=== PATIENT | male | born 1940 | race American Indian/Alaskan Native ===

== ENCOUNTER 2017-02-10 09:24 | Inpatient (IN) | payer MEDICARE ==
[2017-02-10 09:25] VITALS: BMI 23.0
--- NOTE | 2017-02-10 10:32 | C.PDOC ---
History Of Present Illness 76 y/o male presents to the ED with complains of swelling to abdomen and testicular region for the past 2-3 months, worsening the past several days, becoming painful. Pt denies urinary retention, fever, vomiting, chest pain, SOB or any other complaints. Time Seen by Provider: 02/10/17 10:11 Chief Complaint (Nursing): Male Genitourinary History Per: Patient History/Exam Limitations: no limitations Onset/Duration Of Symptoms: Days Current Symptoms Are (Timing): Worse Severity: Moderate Quality Of Discomfort: "Pain" Associated Symptoms: denies: Fever, Vomiting, Chest Pain, Urinary Symptoms Alleviating Factors: None Recent travel outside of the [place]: No Past Medical History Reviewed: Historical Data, Nursing Documentation, Vital Signs Vital Signs: Last Vital Signs Temp 97.4 F L 02/10/17 15:46 Pulse 62 02/10/17 15:46 Resp 20 02/10/17 15:46 BP 95/60 L 02/10/17 15:46 Pulse Ox 97 02/10/17 15:46 - Medical History PMH: CAD, CHF (Probably non-ischemic cardiomyopathy), Gastritis, Gall Bladder Disease, HTN - [facility] Procedures DRAINAGE OF PERITONEAL CAVITY, PERCUTANEOUS APPROACH, DIAGN (08/24/16) Family History: States: Unknown Family Hx - Social History Hx Tobacco Use: No Hx Alcohol Use: No Hx Substance Use: No - Immunization History Hx Tetanus Toxoid Vaccination: No Hx Influenza Vaccination: Yes Hx Pneumococcal Vaccination: Yes Review Of Systems Except As Marked, All Systems Reviewed And Found Negative. Constitutional: Negative for: Fever, Chills Cardiovascular: Negative for: Chest Pain Respiratory: Negative for: Shortness of Breath Gastrointestinal: Positive for: Other (abdominal distention). Negative for: Vomiting Genitourinary: Positive for: Other (testicular swelling, no urinary retention) Physical Exam - Physical Exam Appears: Non-toxic, No Acute Distress Skin: Warm, Dry, No Rash Head: Atraumatic, Normacephalic Neck: Normal, Normal ROM, Supple Chest: Symmetrical Cardiovascular: Rhythm Regular, No Murmur Respiratory: Normal Breath Sounds, No Accessory Muscle Use, No Rales, No Rhonchi , No Wheezing Gastrointestinal/Abdominal: Tenderness (mild diffuse), Distention, Ascites Male Genital: Testicular Swelling (severe) Extremity: Normal ROM, Other (2-3+ pitting edema bilaterally) Pulses: Left Dorsalis Pedis: Normal, Right Dorsalis Pedis: Normal Neurological/Psych: Oriented x3, Normal Speech ED Course And Treatment - Laboratory Results Result Diagrams: 02/10/17 11:05 02/10/17 11:05 O2 Sat by Pulse Oximetry: 99 (room air) Pulse Ox Interpretation: Normal Progress Note: Plan: labs, CXR, UA, IV fluids Medical Decision Making Medical Decision Making: The patient has distention secondary to ascites and ansarca. The case was discussed with Dr. Ames who agrees to admit the patient. Disposition - Disposition Disposition: HOSPITALIZED Disposition Time: 11:00 Condition: STABLE - Clinical Impression Clinical Impression: Ascites, Anasarca - PA / MACHINE SANDER / Resident Statement MD/DO has reviewed & agrees with the documentation as recorded. - Scribe Statement The provider has reviewed the documentation as recorded by the Scribe Sridhar Mendez All medical record entries made by the Scribe were at my direction and personally dictated by me. I have reviewed the chart and agree that the record accurately reflects my personal performance of the history, physical exam, medical decision making, and the department course for this patient. I have also personally directed, reviewed, and agree with the discharge instructions and disposition.
--- NOTE | 2017-02-10 10:34 | C.PDOC ---
Time Seen by Provider: 02/10/17 10:11 Chief Complaint (Nursing): Male Genitourinary Past Medical History Vital Signs: Last Vital Signs Temp 97.4 F L 02/10/17 09:28 Pulse 58 L 02/10/17 09:28 Resp 20 02/10/17 09:28 BP 127/77 02/10/17 09:28 Pulse Ox 99 02/10/17 09:28 - Medical History PMH: CAD, CHF (Probably non-ischemic cardiomyopathy), Gastritis, Gall Bladder Disease, HTN Denies: Chronic Kidney Disease - [facility] Procedures DRAINAGE OF PERITONEAL CAVITY, PERCUTANEOUS APPROACH, DIAGN (08/24/16) Family History: States: Unknown Family Hx - Social History Hx Tobacco Use: No Hx Alcohol Use: No Hx Substance Use: No - Immunization History Hx Tetanus Toxoid Vaccination: No Hx Influenza Vaccination: Yes Hx Pneumococcal Vaccination: Yes ED Course And Treatment O2 Sat by Pulse Oximetry: 99
[2017-02-10 11:13] LABS: LYMPH # 0.5 K/uL (1.0-4.3); MEAN CORPUSCULAR HEMOGLOBIN 31.9 pg (27.0-31.0); MONO # 0.4 K/uL (0.0-0.8)
[2017-02-10 11:27] LABS: ALB/GLOB RATIO 1.2 (1.0-2.1); BILIRUBIN,TOTAL 1.8 mg/dL (0.2-1.3); TOTAL PROTEIN 6.3 g/dL (6.3-8.3)
[2017-02-10 11:28] LABS: BASO % 0.7 % (0.0-2.0); CALCIUM 8.2 mg/dl (8.6-10.4); EOS % 0.9 % (0.0-4.0); HEMATOCRIT 32.5 % (35.0-51.0); LYMPH % 11.2 % (20.0-40.0); MEAN CELL VOLUME 98.5 fL (80.0-94.0); MEAN CORPUSCULAR HGB CONC 32.4 g/dL (33.0-37.0); MEAN PLATELET VOLUME 11.8 fL (7.2-11.7); MONO % 8.8 % (0.0-10.0); RED CELL DISTRIBUTION WIDTH 15.7 % (11.5-14.5); WHITE BLOOD COUNT 4.5 K/uL (4.8-10.8)
[2017-02-10 11:35] LABS: RBC URINE 5 /hpf (0-3); URINE BILIRUBIN NEGATIVE (NEGATIVE); URINE BLOOD NEGATIVE (NEGATIVE); URINE COLOR Yellow (YELLOW); URINE GLUCOSE (UA) NORMAL (Normal); URINE KETONE NEGATIVE (NEGATIVE); URINE LEUKOCYTE ESTERASE NEG Leu/uL (Negative); URINE PROTEIN 1+ mg/dL (NEGATIVE); WBC URINE < 1 /hpf (0-5)
--- NOTE | 2017-02-10 13:47 | CP.PCM.PN ---
Subjective - Date & Time of Evaluation Date of Evaluation: 02/10/17 Time of Evaluation: 12:00 - Subjective Subjective: PGY2 on medicine Dr. Ames service: Pt seen and examined at bedside this morning. 76M with history of CHF, HTN and prostate CA with bone metastasis complains abdominal and scrotal swelling for the past several months. Pt also complains intermittent abdominal pain and scrotal pain secondary to swelling but not right now. Patient said he was evaluated by Dr. Landis for scrotal swelling and was told nothing could be done, per patient. He sleeps with 2-3 pillows at night. He sees Dr. Santos outpatient for his heart failure and said Entresto improved his heart because he can walk several blocks now, compare to less than a block in the past. Patient denies other symptoms at the moment and wants to eat his lunch. Objective - Vital Signs/Intake and Output Vital Signs (last 24 hours): Temp Pulse Resp BP Pulse Ox 97.6 F 76 17 130/91 H 99 02/10/17 13:24 02/10/17 13:24 02/10/17 13:24 02/10/17 13:24 02/10/17 13:24 - Medications Medications: Current Medications Furosemide (Lasix) 40 mg IVP DAILY [facility] (Sacubitril/Valsartan [Entresto 24 Mg-26 Mg]) 1 tab PO BID [facility] Home [facility] (Simvastatin [Simvastatin]) 20 mg PO DAILY [facility] Hydralazine HCl (Apresoline) 25 mg PO TID [facility] Pantoprazole Sodium (Protonix Ec Tab) 40 mg PO DAILY [facility] Spironolactone (Aldactone) 25 mg PO DAILY [facility] - Constitutional Appears: Non-toxic, No Acute Distress, Chronically Ill - Head Exam Head Exam: NORMOCEPHALIC - Eye Exam Eye Exam: Normal appearance Pupil Exam: NORMAL ACCOMODATION - ENT Exam ENT Exam: Mucous Membranes Moist - Respiratory Exam Respiratory Exam: Clear to Ausculation Bilateral, NORMAL BREATHING PATTERN. absent: Chest Wall Tenderness, Rhonchi, Wheezes - Cardiovascular Exam Cardiovascular Exam: REGULAR RHYTHM, +S1, +S2. absent: Gallop, Rubs - GI/Abdominal Exam GI & Abdominal Exam: Distended, Soft, Normal Bowel Sounds. absent: Hyperactive Bowel Sounds - Exam Exam: Scrotal Swelling. absent: Testicular Tenderness External exam: absent: Erythema - Extremities Exam Extremities Exam: Pedal Edema (trace) - Back Exam Back Exam: absent: CVA tenderness (L), CVA tenderness (R) - Neurological Exam Neurological Exam: Alert, Awake, Oriented x3 - Psychiatric Exam Psychiatric exam: Normal Mood - Skin Skin Exam: Intact Assessment and Plan - Assessment and Plan (Free Text) Assessment: CHF Previous ECHO 08/2016 showed 25-30% EF. Cath showed 75% LAD stenosis per Dr. Santos. Cardio Dr. Santos consulted, help appreciated. Lasix 40mg IV daily. Hydralazine 25mg PO TID. Entresto 24-26mg PO BID. Crestor 20mg PO daily. LFT WNL. F/U repeat ECHO. F/U SO x3. F/U A1c. F/U lipid panel. F/U TSH, T4. F/U BNP. F/U PT/PTT HTN See above. Ascites 8L drained in 08/2016. Albumin 3.4 LFT WNL. F/U PT/PTT F/U IR drainage result. F/U fluid studies. Testicular swelling/hydrocele Likely secondary to liver vs cardiac origin. Pt evaluated by Dr. Landis for hydrocele previously. F/U testicular ultrasound and reconsult if needed. Hx of prostate CA Heme/onc Dr. Cheney consulted, help appreciated. Right ankle wound Wound care. Pophylactic measure Protonix. SCD and chemical anticoagulation contraindicated. Management per Dr. Ames
--- NOTE | 2017-02-10 13:53 | RAD ---
PROCEDURE: CHEST RADIOGRAPH, 1 VIEW HISTORY: abd pain COMPARISON: None available. FINDINGS: LUNGS: Clear. PLEURA: No pneumothorax or pleural fluid seen. CARDIOVASCULAR: Cardiomegaly and/or pericardial effusion. OSSEOUS STRUCTURES: No significant abnormalities. VISUALIZED UPPER ABDOMEN: Normal. OTHER FINDINGS: None. IMPRESSION: Cardiomegaly and/or pericardial effusion.
--- NOTE | 2017-02-10 14:35 | US ---
HISTORY: hydrocele TECHNIQUE: Realtime sonography through the scrotum with color and doppler flow. COMPARISON: None Available. FINDINGS: RIGHT TESTICLE: Measures 3.2 x 2.3 x 3.4 cm. Normal echotexture and flow. RIGHT EPIDIDYMIS: Not visualized. LEFT TESTICLE: Not visualized. LEFT EPIDIDYMIS: Not visualized. HYDROCELE: Bilateral. Large right hydrocele. Larger left hydrocele. VARICOCELE: None. OTHER FINDINGS: Intra-abdominal ascites. IMPRESSION: Bilateral hydroceles left larger than right. Limitations of the current examination: Nonvisualization of the right epididymis, left epididymis and left testicle.
--- NOTE | 2017-02-10 18:08 | CP.PCM.CON ---
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 In 2013, he was diagnosed with prostate cancer. In 2014, after chemo, he was admitted to [facility] with dyspnea, and had HTN, CHF, was intubated in the ICU and had temporary dialysis. He was in atrial flutter, and underwent ablation. Cath revealed 75% stenosis of the LDF and severe LV dysfunction. He was admitted to the hospital 05/27 and 08/26> I saw him for the first time . Pt also had a moderate pericardial effusion. As an outpatient, pt parra done well. 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 He has been on colchicine for his pericardial effusion, and entresto, beta kimmy. His breathing has improved. He now comes in for scrotal selling, which he has had for some time. and has not improved. Echo repeat still shows severe cardiomyopathy, diffuse, but His RV function is normal, and IVC size is normal, these findings are not c/w pulmonary HTN . In fact, he only has very mild leg edema. His pericardial effusion is of unknown etiology, but is smaller rthan 6 months ago. Echo is also not c/w pericadial constriction. He has remained in nsr after the ablation. He has continued to see Dr rodriguez for prostate CA and has done well. Review of Systems - Review of Systems All systems: reviewed and no additional remarkable complaints except (as above) Past Patient History - Infectious Disease Hx of Infectious Diseases: None - Past Medical History & Family History Past Medical History?: Yes - Past Social History Smoking Status: Never Smoked - CARDIAC Hx Congestive Heart Failure: Yes (Probably non-ischemic cardiomyopathy) Hx Hypertension: Yes - PULMONARY Hx Respiratory Disorders: No - NEUROLOGICAL Hx Neurological Disorder: No - HEENT Hx HEENT Problems: No - RENAL Hx Chronic Kidney Disease: No - ENDOCRINE/METABOLIC Hx Endocrine Disorders: No - HEMATOLOGICAL/ONCOLOGICAL Hx Blood Disorders: Yes Hx Cancer: Yes (PROSTATE) Hx Chemotherapy: Yes - INTEGUMENTARY Hx Dermatological Problems: No - MUSCULOSKELETAL/RHEUMATOLOGICAL Hx Musculoskeletal Disorders: Yes Other/Comment: PROBLEM WITH HIS RIGHT LEG HAD VEIN LASER SURGERY YEARS AGO - GASTROINTESTINAL Hx Gall Bladder Disease: Yes Hx Gastritis: Yes - GENITOURINARY/GYNECOLOGICAL Hx Genitourinary Disorders: Yes Hx Prostate Cancer: Yes (HAD CHEMOTHERAPY) - PSYCHIATRIC Hx Substance Use: No - SURGICAL HISTORY Hx Surgeries: Yes Hx Cardiac Catheterization: Yes Hx Herniorrhaphy: Yes (LEFT INGUINAL) - ANESTHESIA Hx Anesthesia: Yes Hx Anesthesia Reactions: No Hx Malignant Hyperthermia: No Meds Allergies/Adverse Reactions: Allergies Allergy/AdvReac Type Severity Reaction Status Date / Time No Known Allergies Allergy Verified 02/10/17 09:28 - Medications Medications: Current Medications Furosemide (Lasix) 40 mg IVP DAILY [facility] Last Admin: 02/10/17 17:25 Dose: 40 mg Hydralazine HCl (Apresoline) 25 mg PO TID [facility] Last Admin: 02/10/17 17:24 Dose: 25 mg Pantoprazole Sodium (Protonix Ec Tab) 40 mg PO DAILY [facility] Rosuvastatin Calcium (Crestor) 5 mg PO HS [facility] Sacubitril/Valsartan (Entresto 24 Mg-26 Mg) 1 tab PO BID [facility] Spironolactone (Aldactone) 25 mg PO DAILY [facility] Physical Exam - Constitutional Appears: Older Than Stated Age - Head Exam Head Exam: ATRAUMATIC - Eye Exam Eye Exam: EOMI - ENT Exam ENT Exam: Mucous Membranes Moist - Neck Exam Neck exam: Positive for: Normal Inspection - Respiratory Exam Respiratory Exam: Clear to Auscultation Bilateral - Cardiovascular Exam Cardiovascular Exam: REGULAR RHYTHM - GI/Abdominal Exam GI & Abdominal Exam: Normal Bowel Sounds - Exam Exam: Scrotal Swelling (severe) - Extremities Exam Extremities exam: Positive for: pedal edema (bandged right leg ulcer, healing) - Back Exam Back exam: NORMAL INSPECTION - Neurological Exam Neurological exam: Alert, CN II-XII Intact, Oriented x3, Reflexes Normal Results - Vital Signs Recent Vital Signs: Last Vital Signs Temp 97.4 F L 02/10/17 15:46 Pulse 62 02/10/17 15:46 Resp 20 02/10/17 15:46 BP 125/61 02/10/17 17:25 Pulse Ox 99 02/10/17 16:33 - Labs Result Diagrams: 02/10/17 11:05 02/10/17 11:05 Labs: Laboratory Results - last 24 hr 02/10/17 13:22 Total Creatine Kinase 256 H CK-MB (Mass) 1.72 Troponin I, Quant 0.0200 NT-Pro-B Natriuret Pep 8220 H - EKG Data EKG Interpreted by: Myself (nsr, pvs) Assessment & Plan - Assessment and Plan (Free Text) Assessment: 1. Severe cardiomyopathy of unknown etiology: currently well compensated. pt has refused ICD several times. Resume aldactone and beta blcker 2. Pericardial effusion is not big enough for pericardiocentesis. Resume colchicine. pt does not list as an outpt med and he ma have run out 3. S/p aflutter ablation: in nsr 4. Echo suggests right sided pressures are normal, as well as not c/w pericardial constriction. 5. CAD: stable. statin, asa
--- NOTE | 2017-02-10 18:59 | CARD ---
APPROVED REPORT EXAM: Two-dimensional and M-mode echocardiogram with Doppler and color Doppler. Other Information Quality : FairRhythm : NSR INDICATION Dyspnea RISK FACTORS Hypertension M-Mode DIMENSIONS RVDd1.84 (2.1-3.2cm)Left Atrium (MM)5.19 (2.5-4.0cm) IVSd0.96 (0.7-1.1cm)Aortic Root2.89 (2.2-3.7cm) LVDd5.94 (4.0-5.6cm)Aortic Cusp Exc.1.91 (1.5-2.0cm) PWd1.00 (0.7-1.1cm)FS (%) 12 % LVDs5.24 (2.0-3.8cm)LVEF (%)25 (>50%) Aortic Valve AI P 1/2 [id number] Mitral Valve MV E Gtxbgjni65.6cm/sMV A Jgajlnab90.0cm/sE/A ratio2.8 TDI E/Lateral E'0.0E/Medial E'0.0 Tricuspid Valve TR Peak [id number]/sTR Peak Gr.[id number] LEFT VENTRICLE The Left Ventricle is moderately dilated. There is normal left ventricular wall thickness. Left ventricle systolic function is severely impaired. The Ejection Fraction is <30%. There is global hypokinesis of the left ventricle. Transmitral Doppler flow pattern is Grade III restrictive diastolic dysfunction. RIGHT VENTRICLE The right ventricle is moderately dilated. Systolic function is moderately reduced. ATRIA The left atrium is moderately dilated. Left atrial index is severely increased. The right atrium is moderately dilated. AORTIC VALVE The aortic valve is normal in structure. There is mild aortic regurgitation. MITRAL VALVE The mitral valve is normal in structure. Mild mitral regurgitation. TRICUSPID VALVE The tricuspid valve is normal in structure. There is mild to moderate tricuspid regurgitation. Right ventricular systolic pressure is estimated at 42 mmHg. There is mild pulmonary hypertension. PULMONIC VALVE The pulmonary valve is normal in structure. There is mild to moderate pulmonic valvular regurgitation. GREAT VESSELS The aortic root is normal in size. The IVC is normal in size and collapses >50% with inspiration. PERICARDIAL EFFUSION There is a small circumferential pericardial effusion. <Conclusion> There is global hypokinesis of the left ventricle. Left ventricle systolic function is severely impaired. The Ejection Fraction is <30%. Severe diastolic dysfunction. Transmitral Doppler flow pattern is Grade III restrictive diastolic dysfunction. The right ventricle is moderately dilated. Systolic function is moderately reduced. There is mild mitral and aortic regurgitation. Right ventricular systolic pressure is estimated at - 42 mmHg compatible with mild pulmonary hypertension. There is a small circumferential pericardial effusion.
[2017-02-10] MEDS: Sacubitril/Valsartan 24-26mg Tab PO SCH (19:08)
[2017-02-11 06:27] LABS: BASO % 0.6 % (0.0-2.0); EOS # 0.1 K/uL (0.0-0.7); HEMATOCRIT 36.3 % (35.0-51.0); LYMPH # 0.7 K/uL (1.0-4.3); LYMPH % 12.3 % (20.0-40.0); MEAN CELL VOLUME 98.3 fL (80.0-94.0); MEAN CORPUSCULAR HEMOGLOBIN 32.4 pg (27.0-31.0); MEAN PLATELET VOLUME 11.7 fL (7.2-11.7); MONO # 0.5 K/uL (0.0-0.8); MONO % 8.9 % (0.0-10.0); NRBC % 0.1 % (0.0-2.0); RED CELL DISTRIBUTION WIDTH 15.9 % (11.5-14.5); WHITE BLOOD COUNT 5.5 K/uL (4.8-10.8)
[2017-02-11 06:35] LABS: INR 1.2
[2017-02-11 06:51] LABS: POTASSIUM 4.1 mmol/L (3.6-5.2)
[2017-02-11 06:53] LABS: ALB/GLOB RATIO 1.1 (1.0-2.1); BILIRUBIN,TOTAL 1.4 mg/dL (0.2-1.3); CALCIUM 8.6 mg/dl (8.6-10.4); TOTAL PROTEIN 6.4 g/dL (6.3-8.3)
[2017-02-11 07:11] LABS: T4 8.18 ug/dL (5.5-11.0)
[2017-02-11 07:25] LABS: THYROID STIMULATING HORMONE 4.52 mIU/L (0.46-4.68)
[2017-02-11] MEDS: Pantoprazole 40 mg EC Tab PO SCH (09:32)
[2017-02-11] MEDS: Sacubitril/Valsartan 24-26mg Tab PO SCH ×2 (11:41→17:43)
--- NOTE | 2017-02-11 22:11 | CP.PCM.CON ---
History of Present Illness - History of Present Illness History of Present Illness: 76 year old male with a history of CAD, cardiomyopathy, prostate cancer dx 2009, treated with radiation, hormonal therapy, and chemotherapy with Dr. Adamson, admitted with abdominal and scrotal swelling secondary to ascites s/p paracentesis. The patient is not clear about the specific details of his cancer diagnosis and treatment. He does remember having extremal beam radiotherapy and hormonal injections in 2009 or 2010 on diagnosis. He later reports he required chemotherapy with Dr. Adamson which was complicated by severe chemo side effects which led to hospitalization in the ICU with vent support. He recovered well and notes his last PSA was 4 and told to f/u for surveillance PSA monitoring. He remains active and continues to work. He notes to increasing swelling in his abdomen and scortum which prompted to come to the hospital. He is s/p paracentesis and reports to feeling better. Past medical history: CAD, cardiomyopathy, prostate cancer Past surgical history: Hernia repair Family history: Denies hematologic and oncologic problems Social history: Denies tobacco, alcohol, and illicit drug use. Allergies: NKA Review of systems: All remaining review of systems including HEENT, cardiovascular, respiratory, gastrointestinal, genitourinary, musculoskeletal, dermatologic, neurologic, and psychiatric are negative unless mentioned in the HPI. Past Patient History - Infectious Disease Hx of Infectious Diseases: None - Past Medical History & Family History Past Medical History?: Yes - Past Social History Smoking Status: Former Smoker - CARDIAC Hx Cardiac Disorders: Yes Hx Congestive Heart Failure: Yes (Probably non-ischemic cardiomyopathy) Hx Hypertension: Yes - PULMONARY Hx Respiratory Disorders: No - NEUROLOGICAL Hx Neurological Disorder: No - HEENT Hx HEENT Problems: No - RENAL Hx Chronic Kidney Disease: No - ENDOCRINE/METABOLIC Hx Endocrine Disorders: No - HEMATOLOGICAL/ONCOLOGICAL Hx Blood Disorders: Yes Hx Cancer: Yes (PROSTATE) Hx Chemotherapy: Yes - INTEGUMENTARY Hx Dermatological Problems: No - MUSCULOSKELETAL/RHEUMATOLOGICAL Hx Musculoskeletal Disorders: Yes Hx Falls: No Other/Comment: PROBLEM WITH HIS RIGHT LEG HAD VEIN LASER SURGERY YEARS AGO - GASTROINTESTINAL Hx Gastrointestinal Disorders: Yes Hx Gall Bladder Disease: Yes Hx Gastritis: Yes - GENITOURINARY/GYNECOLOGICAL Hx Genitourinary Disorders: Yes Hx Prostate Cancer: Yes - PSYCHIATRIC Hx Psychophysiologic Disorder: No Hx Substance Use: No - SURGICAL HISTORY Hx Surgeries: Yes Hx Cardiac Catheterization: Yes Hx Herniorrhaphy: Yes (LEFT INGUINAL) - ANESTHESIA Hx Anesthesia: Yes Hx Anesthesia Reactions: No Hx Malignant Hyperthermia: No Has any member of the family had a problem w/ anesthesia?: No Meds Allergies/Adverse Reactions: Allergies Allergy/AdvReac Type Severity Reaction Status Date / Time No Known Allergies Allergy Verified 02/10/17 09:28 - Medications Medications: Current Medications Colchicine (Colocrys) 0.6 mg PO DAILY [facility] Last Admin: 02/11/17 11:41 Dose: 0.6 mg Furosemide (Lasix) 40 mg IVP DAILY [facility] Hydralazine HCl (Apresoline) 25 mg PO Q8H [facility] Last Admin: 02/11/17 19:11 Dose: Not Given Metoprolol Tartrate (Lopressor) 12.5 mg PO BID [facility] Last Admin: 02/11/17 17:42 Dose: 12.5 mg Pantoprazole Sodium (Protonix Ec Tab) 40 mg PO DAILY [facility] Last Admin: 02/11/17 09:32 Dose: 40 mg Rosuvastatin Calcium (Crestor) 5 mg PO HS [facility] Last Admin: 02/11/17 21:47 Dose: 5 mg Sacubitril/Valsartan (Entresto 24 Mg-26 Mg) 1 tab PO BID [facility] Last Admin: 02/11/17 17:43 Dose: 1 tab Spironolactone (Aldactone) 25 mg PO DAILY [facility] Physical Exam - Head Exam Head Exam: ATRAUMATIC - Eye Exam Eye Exam: Normal appearance - ENT Exam ENT Exam: Mucous Membranes Dry - Respiratory Exam Respiratory Exam: NORMAL BREATHING PATTERN - Cardiovascular Exam Cardiovascular Exam: +S1, +S2 - GI/Abdominal Exam GI & Abdominal Exam: Normal Bowel Sounds - Extremities Exam Extremities exam: Positive for: pedal edema - Neurological Exam Neurological exam: Oriented x3 - Psychiatric Exam Psychiatric exam: Normal Affect, Normal Mood - Skin Skin Exam: Warm Results - Vital Signs Recent Vital Signs: Last Vital Signs Temp 97.4 F L 02/11/17 16:20 Pulse 62 02/11/17 20:43 Resp 20 02/11/17 16:20 BP 92/60 L 02/11/17 19:30 Pulse Ox 97 02/11/17 16:20 - Labs Result Diagrams: 02/11/17 06:18 02/11/17 06:18 Labs: Laboratory Results - last 24 hr 02/10/17 02/11/17 02/11/17 22:39 06:18 06:18 WBC 5.5 RBC 3.69 L Hgb 12.0 Hct 36.3 MCV 98.3 H MCH 32.4 H MCHC 33.0 RDW 15.9 H Plt Count 119 L MPV 11.7 Neut % (Auto) 77.2 H Lymph % (Auto) 12.3 L Dare % (Auto) 8.9 Eos % (Auto) 1.0 Baso % (Auto) 0.6 Neut # 4.2 Lymph # 0.7 L Dare # 0.5 Eos # 0.1 Baso # 0.0 PT 13.4 H INR 1.2 APTT 34 Sodium Potassium Chloride Carbon Dioxide Anion Gap BUN Creatinine Est GFR ( Amer) Est GFR (Non-Af Amer) Random Glucose Calcium Magnesium Total Bilirubin AST ALT Alkaline Phosphatase Total Creatine Kinase 286 H CK-MB (Mass) 2.20 Troponin I, Quant 0.0250 Total Protein Albumin Globulin Albumin/Globulin Ratio Triglycerides Cholesterol LDL Cholesterol Direct HDL Cholesterol Thyroxine (T4) TSH 3rd Generation 02/11/17 06:18 WBC RBC Hgb Hct MCV MCH MCHC RDW Plt Count MPV Neut % (Auto) Lymph % (Auto) Dare % (Auto) Eos % (Auto) Baso % (Auto) Neut # Lymph # Dare # Eos # Baso # PT INR APTT Sodium 135 Potassium 4.1 Chloride 101 Carbon Dioxide 25 Anion Gap 13 BUN 20 Creatinine 1.6 H Est GFR ( Amer) 51 Est GFR (Non-Af Amer) 42 Random Glucose 80 Calcium 8.6 Magnesium 2.0 Total Bilirubin 1.4 H AST 48 ALT 27 Alkaline Phosphatase 222 H D Total Creatine Kinase 241 H CK-MB (Mass) 1.98 Troponin I, Quant 0.0300 Total Protein 6.4 Albumin 3.4 L Globulin 3.0 Albumin/Globulin Ratio 1.1 Triglycerides 63 D Cholesterol 160 LDL Cholesterol Direct 84 HDL Cholesterol 43 Thyroxine (T4) 8.18 TSH 3rd Generation 4.52 Assessment & Plan (1) Prostate cancer Assessment and Plan: patients primary oncologist is Dr. Adamson and he will continue to follow with her he appears to be doing will from a hem/onc standpoint mild cytopenias are improving I will sign off; recommend consulting Dr. Adamson for further heme/onc questions Thank you for this interesting consult. Status: Chronic
[2017-02-12 07:08] LABS: BASO % 0.3 % (0.0-2.0); EOS # 0.1 K/uL (0.0-0.7); HEMATOCRIT 35.8 % (35.0-51.0); LYMPH # 0.7 K/uL (1.0-4.3); LYMPH % 13.4 % (20.0-40.0); MEAN CELL VOLUME 97.2 fL (80.0-94.0); MEAN CORPUSCULAR HEMOGLOBIN 32.2 pg (27.0-31.0); MEAN CORPUSCULAR HGB CONC 33.1 g/dL (33.0-37.0); MEAN PLATELET VOLUME 11.2 fL (7.2-11.7); MONO # 0.5 K/uL (0.0-0.8); MONO % 10.3 % (0.0-10.0); NRBC % 0.1 % (0.0-2.0); WHITE BLOOD COUNT 5.3 K/uL (4.8-10.8)
[2017-02-12] MEDS: Sacubitril/Valsartan 24-26mg Tab PO SCH ×2 (10:36→17:44)
[2017-02-12] MEDS: Pantoprazole 40 mg EC Tab PO SCH (10:36)
[2017-02-13 07:24] LABS: BASO % 0.6 % (0.0-2.0); EOS % 0.9 % (0.0-4.0); LYMPH # 0.7 K/uL (1.0-4.3); LYMPH % 15.7 % (20.0-40.0); MEAN CELL VOLUME 98.7 fL (80.0-94.0); MEAN CORPUSCULAR HGB CONC 32.4 g/dL (33.0-37.0); MEAN PLATELET VOLUME 11.7 fL (7.2-11.7); MONO # 0.5 K/uL (0.0-0.8); MONO % 10.8 % (0.0-10.0); NRBC % 0.1 % (0.0-2.0); RED CELL DISTRIBUTION WIDTH 15.8 % (11.5-14.5); WHITE BLOOD COUNT 4.5 K/uL (4.8-10.8)
[2017-02-13 07:32] LABS: INR 1.2
[2017-02-13 07:42] LABS: POTASSIUM 4.5 mmol/L (3.6-5.2)
[2017-02-13 07:45] LABS: ALB/GLOB RATIO 1.1 (1.0-2.1); BILIRUBIN,TOTAL 1.2 mg/dL (0.2-1.3); CALCIUM 8.3 mg/dl (8.6-10.4); TOTAL PROTEIN 6.4 g/dL (6.3-8.3)
--- NOTE | 2017-02-13 08:40 | CP.PCM.PN ---
Subjective - Date & Time of Evaluation Date of Evaluation: 02/13/17 Time of Evaluation: 13:30 - Subjective Subjective: Rapid Response note: Patient is a 76 year old male with a history of congestive heart failure with a echo that showed an EF of less than 30% with sever diasyolic dysfunction. He was found to be in afib with heart rate in the 140s to 110s. An EKG was preformed and then a rapid response was called. Patient denied any chest pain, or palpiations, shortness of breath, or anxiety. Initally his blood pressur was 120/67 but dropped to 106/57. Dr. Santos was called he instructed to started with 5mg of Cardizem. He was given 5mg of Cardizem IVP and his rate dropped to around 100s. We will continue to monitor him and consider another bolus of cardizem or cardiezm drip if heart rate increases. Objective - Vital Signs/Intake and Output Vital Signs (last 24 hours): Temp Pulse Resp BP Pulse Ox 97.9 F 67 18 110/75 100 02/12/17 23:15 02/13/17 00:00 02/12/17 23:15 02/13/17 06:00 02/12/17 23:15 Intake and Output: 02/13/17 02/13/17 06:59 18:59 Intake Total 150 Output Total 100 Balance 50 - Medications Medications: Current Medications Colchicine (Colocrys) 0.6 mg PO DAILY [facility] Last Admin: 02/12/17 10:36 Dose: 0.6 mg Furosemide (Lasix) 40 mg IVP DAILY [facility] Last Admin: 02/12/17 10:36 Dose: 40 mg Hydralazine HCl (Apresoline) 25 mg PO Q8 [facility] Last Admin: 02/13/17 05:55 Dose: 25 mg Metoprolol Tartrate (Lopressor) 12.5 mg PO BID [facility] Last Admin: 02/12/17 17:44 Dose: 12.5 mg Pantoprazole Sodium (Protonix Ec Tab) 40 mg PO DAILY [facility] Last Admin: 02/12/17 10:36 Dose: 40 mg Rosuvastatin Calcium (Crestor) 5 mg PO HS [facility] Last Admin: 02/12/17 21:32 Dose: 5 mg Sacubitril/Valsartan (Entresto 24 Mg-26 Mg) 1 tab PO BID [facility] Last Admin: 02/12/17 17:44 Dose: 1 tab Spironolactone (Aldactone) 25 mg PO DAILY [facility] Last Admin: 02/12/17 10:37 Dose: 25 mg - Labs Labs: 02/13/17 07:18 02/13/17 07:18 PT 13.2 SECONDS (9.7-12.2) H 02/13/17 07:18 INR 1.2 02/13/17 07:18 APTT 34 SECONDS (21-34) 02/13/17 07:18 - Head Exam Head Exam: ATRAUMATIC, NORMAL INSPECTION - Eye Exam Eye Exam: Normal appearance - Respiratory Exam Respiratory Exam: Clear to Ausculation Bilateral - Cardiovascular Exam Cardiovascular Exam: Tachycardia, Irregular Rhythm, Murmur - GI/Abdominal Exam GI & Abdominal Exam: Soft, Tenderness - Extremities Exam Extremities Exam: Normal Inspection
[2017-02-13] MEDS: Pantoprazole 40 mg EC Tab PO SCH (10:33)
[2017-02-13] MEDS: Sacubitril/Valsartan 24-26mg Tab PO SCH ×2 (10:33→17:59)
--- NOTE | 2017-02-13 11:00 | US ---
Date of Procedure: 02/13/2017 PROCEDURE: Ultrasound-guided paracentesis, CPT 59976 Medications: 1% Lidocaine HISTORY: Ascites, abdominal pain, cirrhosis TECHNIQUE: Following informed consent , the patient was placed supine on the stretcher and the site was marked. A limited abdominal ultrasound was performed that showed a large amount of intra-abdominal fluid. Procedural time out was called and the Pt's abdomen was marked and prepped and draped in the usual sterile fashion. Ultrasound-guided large volume paracentesis performed. A total of 5.8 liters of straw colored fluid was removed without complication. Fluid specimen was sent for culture, sensitivity, cytology and chemistries. IMPRESSION: Ultrasound-guided large volume paracentesis.
[2017-02-13 11:34] LABS: BODY FLUID TYPE PERITONEAL
[2017-02-13 12:13] LABS: BF GROSS APPEARANCE SL CLOUDY (CLEAR)
--- NOTE | 2017-02-13 13:17 | CARD ---
APPROVED REPORT EKG Measurement Heart [id number] <Conclusion> Sinus rhythm with frequent premature ventricular complexes and premature atrial complexes Right superior axis deviation Low voltage QRS Septal infarct, age undetermined Abnormal ECG
[2017-02-13] MEDS ORDERED: Albumin Human 25% (12.5 gm/50 ml) IV ONE (13:33)
--- NOTE | 2017-02-13 14:09 | CP.PCM.PN ---
Subjective - Date & Time of Evaluation Date of Evaluation: 02/13/17 Time of Evaluation: 09:00 - Subjective Subjective: Dr. Ames note: Patient seen and and examined in room. History is limited due to patient's condition. He says he is comfortable and sitting up. He does report he his belly has been distended and has been before. He had a paracentesis back in the fall of 2015. He denies having any chest pain, shortness of breath, or palpitations. Objective - Vital Signs/Intake and Output Vital Signs (last 24 hours): Temp Pulse Resp BP Pulse Ox 97.6 F 102 H 18 103/67 100 02/13/17 13:02 02/13/17 13:02 02/13/17 13:02 02/13/17 13:02 02/13/17 13:02 Intake and Output: 02/13/17 02/13/17 06:59 18:59 Intake Total 150 Output Total 100 Balance 50 - Medications Medications: Current Medications Colchicine (Colocrys) 0.6 mg PO DAILY [facility] Last Admin: 02/13/17 10:33 Dose: 0.6 mg Furosemide (Lasix) 40 mg IVP DAILY [facility] Last Admin: 02/13/17 10:34 Dose: 40 mg Hydralazine HCl (Apresoline) 25 mg PO Q8 [facility] Last Admin: 02/13/17 05:55 Dose: 25 mg Diltiazem HCl 125 mg/ Sodium (Chloride) 125 mls @ 5 mls/hr IV .Q24H [facility] PRN Reason: 5 MG/HR Metoprolol Tartrate (Lopressor) 12.5 mg PO BID [facility] Last Admin: 02/13/17 10:33 Dose: 12.5 mg Pantoprazole Sodium (Protonix Ec Tab) 40 mg PO DAILY [facility] Last Admin: 02/13/17 10:33 Dose: 40 mg Rosuvastatin Calcium (Crestor) 5 mg PO HS [facility] Last Admin: 02/12/17 21:32 Dose: 5 mg Sacubitril/Valsartan (Entresto 24 Mg-26 Mg) 1 tab PO BID [facility] Last Admin: 02/13/17 10:33 Dose: 1 tab Spironolactone (Aldactone) 25 mg PO DAILY [facility] Last Admin: 02/13/17 10:33 Dose: 25 mg - Labs Labs: 02/13/17 07:18 06/05/17 07:18 PT 13.2 SECONDS (9.7-12.2) H 02/13/17 07:18 INR 1.2 02/13/17 07:18 APTT 34 SECONDS (21-34) 02/13/17 07:18 - Constitutional Appears: Non-toxic, No Acute Distress - Head Exam Head Exam: ATRAUMATIC, NORMAL INSPECTION, NORMOCEPHALIC - Eye Exam Eye Exam: Normal appearance - Respiratory Exam Respiratory Exam: Clear to Ausculation Bilateral. absent: Rales, Rhonchi, Wheezes - Cardiovascular Exam Cardiovascular Exam: REGULAR RHYTHM, RRR, +S1, +S2. absent: Gallop, Rubs - GI/Abdominal Exam GI & Abdominal Exam: Distended, Firm, Normal Bowel Sounds. absent: Soft, Tenderness - Neurological Exam Neurological Exam: Alert. absent: Oriented x3 - Psychiatric Exam Psychiatric exam: Normal Affect, Normal Mood - Skin Skin Exam: Normal Color Assessment and Plan (1) Ascites Assessment & Plan: Paracentesis preformed, removed 6 liters of fluid, ordered replacement Albumin. Status: Acute (2) CHF (congestive heart failure) Assessment & Plan: Patient had two episodes of being in rapid afib, was given 5mg of Cardizem. Spoke with Dr. Santos, who consulted to stat Amiodrone 200mg bid and to monitor patient overnight. Continue all medication Status: Acute (3) Prophylactic measure Assessment & Plan: Pepcid and Lovenox Status: Acute - Assessment and Plan (Free Text) Assessment: Chronic conditions HTN continue current medications with proper holding parameters.
[2017-02-13 14:12] LABS: NRBC % 0.1 % (0.0-2.0)
[2017-02-13 14:29] LABS: BASO % 0.7 % (0.0-2.0); EOS % 0.8 % (0.0-4.0); HEMATOCRIT 41.6 % (35.0-51.0); LYMPH # 0.9 K/uL (1.0-4.3); LYMPH % 16.9 % (20.0-40.0); MEAN CELL VOLUME 99.1 fL (80.0-94.0); MEAN CORPUSCULAR HEMOGLOBIN 31.5 pg (27.0-31.0); MEAN CORPUSCULAR HGB CONC 31.8 g/dL (33.0-37.0); MEAN PLATELET VOLUME 11.8 fL (7.2-11.7); MONO # 0.5 K/uL (0.0-0.8); MONO % 8.9 % (0.0-10.0); RED CELL DISTRIBUTION WIDTH 15.9 % (11.5-14.5); WHITE BLOOD COUNT 5.6 K/uL (4.8-10.8)
[2017-02-13 14:46] LABS: POTASSIUM 4.2 mmol/L (3.6-5.2)
[2017-02-13 14:48] LABS: ALB/GLOB RATIO 1.2 (1.0-2.1); BILIRUBIN,TOTAL 1.1 mg/dL (0.2-1.3); TOTAL PROTEIN 7.2 g/dL (6.3-8.3)
[2017-02-13 14:49] LABS: CALCIUM 8.7 mg/dl (8.6-10.4)
[2017-02-13 15:26] VITALS: RESP 20
[2017-02-14 08:10] VITALS: O2SAT 99
[2017-02-14 08:29] LABS: BASO % 0.6 % (0.0-2.0); HEMATOCRIT 36.8 % (35.0-51.0); LYMPH # 0.7 K/uL (1.0-4.3); LYMPH % 16.4 % (20.0-40.0); MEAN CELL VOLUME 98.2 fL (80.0-94.0); MEAN CORPUSCULAR HEMOGLOBIN 32.5 pg (27.0-31.0); MEAN CORPUSCULAR HGB CONC 33.1 g/dL (33.0-37.0); MEAN PLATELET VOLUME 11.1 fL (7.2-11.7); MONO # 0.4 K/uL (0.0-0.8); MONO % 9.8 % (0.0-10.0); RED CELL DISTRIBUTION WIDTH 15.8 % (11.5-14.5); WHITE BLOOD COUNT 4.6 K/uL (4.8-10.8)
[2017-02-14 08:54] LABS: POTASSIUM 4.7 mmol/L (3.6-5.2)
[2017-02-14 08:56] LABS: BILIRUBIN,TOTAL 0.9 mg/dL (0.2-1.3)
[2017-02-14 08:57] LABS: ALB/GLOB RATIO 1.2 (1.0-2.1); PHOSPHOROUS 3.6 mg/dL (2.5-4.5); TOTAL PROTEIN 6.7 g/dL (6.3-8.3)
[2017-02-14 08:58] LABS: CALCIUM 8.6 mg/dl (8.6-10.4)
[2017-02-14 09:20] LABS: THYROID STIMULATING HORMONE 2.43 mIU/L (0.46-4.68)
[2017-02-14] MEDS ORDERED: Enoxaparin 30 mg Syringe SC SCH (10:00)
[2017-02-14] MEDS: Pantoprazole 40 mg EC Tab PO SCH (11:14)
[2017-02-14] MEDS: Sacubitril/Valsartan 24-26mg Tab PO SCH (11:17)
--- NOTE | 2017-02-14 11:56 | CARD ---
APPROVED REPORT EKG Measurement Heart [id number] <Conclusion> Undetermined rhythm Right superior axis deviation Low voltage QRS Septal infarct, age undetermined Inferior infarct, age undetermined Abnormal ECG
--- NOTE | 2017-02-14 13:46 | CP.PCM.PN ---
Subjective - Date & Time of Evaluation Date of Evaluation: 02/14/17 Time of Evaluation: 13:41 - Subjective Subjective: The patient had rapid atrial flutter yesterday, nd converted with small dose of cardezem. During the vent, no palpitations or ZHENG. Po amiodarone was ordered. Pt had paracentesis Objective - Vital Signs/Intake and Output Vital Signs (last 24 hours): Temp Pulse Resp BP Pulse Ox 97.4 F L 65 20 99/61 L 99 02/14/17 07:00 02/14/17 07:00 02/14/17 07:00 02/14/17 07:00 02/14/17 07:00 Intake and Output: 02/14/17 02/14/17 06:59 18:59 Intake Total 500 Balance 500 - Medications Medications: Current Medications Amiodarone HCl (Cordarone) 200 mg PO BID [facility] Last Admin: 02/14/17 11:15 Dose: 200 mg Colchicine (Colocrys) 0.6 mg PO DAILY [facility] Last Admin: 02/14/17 11:14 Dose: 0.6 mg Enoxaparin Sodium (Lovenox) 30 mg SC DAILY [facility] Last Admin: 02/14/17 11:17 Dose: Not Given Famotidine (Pepcid) 20 mg PO DAILY [facility] Last Admin: 02/14/17 11:14 Dose: 20 mg Furosemide (Lasix) 40 mg IVP DAILY [facility] Last Admin: 02/14/17 11:17 Dose: Not Given Hydralazine HCl (Apresoline) 25 mg PO Q8 [facility] Last Admin: 02/14/17 06:20 Dose: 25 mg Metoprolol Tartrate (Lopressor) 12.5 mg PO BID [facility] Last Admin: 02/14/17 11:17 Dose: Not Given Pantoprazole Sodium (Protonix Ec Tab) 40 mg PO DAILY [facility] Last Admin: 02/14/17 11:14 Dose: 40 mg Rosuvastatin Calcium (Crestor) 5 mg PO HS [facility] Last Admin: 02/13/17 21:21 Dose: 5 mg Sacubitril/Valsartan (Entresto 24 Mg-26 Mg) 1 tab PO BID [facility] Last Admin: 02/14/17 11:17 Dose: Not Given Spironolactone (Aldactone) 25 mg PO DAILY [facility] Last Admin: 02/14/17 11:17 Dose: Not Given - Labs Labs: 02/14/17 08:20 02/14/17 08:20 PT 13.2 SECONDS (9.7-12.2) H 02/13/17 07:18 INR 1.2 02/13/17 07:18 APTT 34 SECONDS (21-34) 02/13/17 07:18 - Constitutional Appears: Chronically Ill - Head Exam Head Exam: ATRAUMATIC - Eye Exam Eye Exam: EOMI Pupil Exam: NORMAL ACCOMODATION - ENT Exam ENT Exam: Mucous Membranes Moist - Neck Exam Neck Exam: Full ROM - Respiratory Exam Respiratory Exam: Clear to Ausculation Bilateral - Cardiovascular Exam Cardiovascular Exam: REGULAR RHYTHM - GI/Abdominal Exam GI & Abdominal Exam: Normal Bowel Sounds - Extremities Exam Extremities Exam: Full ROM - Back Exam Back Exam: NORMAL INSPECTION - Neurological Exam Neurological Exam: Alert, Awake, Normal Gait, Oriented x3 - Psychiatric Exam Psychiatric exam: Normal Affect, Normal Mood - Skin Skin Exam: Normal Color Assessment and Plan - Assessment and Plan (Free Text) Assessment: 1. Dilated cardiomyopathy: no clinical pulmonary congestion., Excellent exercise capacity. Non sustained vtach noted on tele. pt has refused ICD. 2. Atrial flutter, well tolerated. pt on amiodarone bid, informed that we will have bid for a month, then qd. Pt informed of potential toxicity. LFT and TSH are normal. Pt has refused anticoagulation. 3. Echo not c/w constriction (no IVC plethora, normal Tissue doppler ratio 4. Pt may return to work
[2017-02-14 16:05] VITALS: BP 109/71; PULSE 71; TEMP 97.3
--- NOTE | 2017-02-14 20:05 | CP.PCM.PN ---
Subjective - Date & Time of Evaluation Date of Evaluation: 02/14/17 Time of Evaluation: 09:00 - Subjective Subjective: Patient is seen in room. He has no complaints of chest pain, palpitations, lightheadness, dizziness, shortness of breath, racing heart, or anxiety. Objective - Vital Signs/Intake and Output Vital Signs (last 24 hours): Temp Pulse Resp BP Pulse Ox 97.3 F L 71 20 109/71 99 02/14/17 15:04 02/14/17 15:04 02/14/17 15:04 02/14/17 15:04 02/14/17 07:00 - Labs Labs: 02/14/17 08:20 02/14/17 08:20 PT 13.2 SECONDS (9.7-12.2) H 02/13/17 07:18 INR 1.2 02/13/17 07:18 APTT 34 SECONDS (21-34) 02/13/17 07:18 - Constitutional Appears: Non-toxic, No Acute Distress - Head Exam Head Exam: NORMAL INSPECTION - Eye Exam Eye Exam: Normal appearance - Respiratory Exam Respiratory Exam: Clear to Ausculation Bilateral. absent: Rhonchi, Wheezes - Cardiovascular Exam Cardiovascular Exam: REGULAR RHYTHM, RRR, +S1, +S2. absent: Gallop, Rubs - GI/Abdominal Exam GI & Abdominal Exam: Soft, Normal Bowel Sounds. absent: Distended, Guarding, Tenderness - Extremities Exam Extremities Exam: Normal Inspection. absent: Pedal Edema - Back Exam Back Exam: NORMAL INSPECTION - Neurological Exam Neurological Exam: Alert - Psychiatric Exam Psychiatric exam: Normal Affect, Normal Mood - Skin Skin Exam: Normal Color Assessment and Plan (1) Ascites Status: Acute (2) CHF (congestive heart failure) Status: Acute (3) Prophylactic measure Status: Acute (4) Afib Assessment & Plan: Patient discharged home today with a script for Amiodrone 200mg to take bid. He needs to follow up with Dr. Santos after discharge. Status: Acute
--- NOTE | 2017-02-15 08:00 | PCM.HF ---
Heart Failure Core Measure - Heart Failure Ejection Fraction: Less Than 40 % WINTER Inhibitor Prescribed: Yes Beta-Mariana Prescribed: Metoprolol Succinate Angiotensin II Receptor Mariana Prescribed: No Contraindication/Reason for not providing: on WINTER AnticoagulationTherapy for Atrial Fibrillation/Atrialflutter: No Contraindication/Reason for not providing: nohx of a fib Aldosterone Antagonist Prescribed: Yes Hydralazine Nitrate Prescribed: Yes Implantable Cardioverter Defibrillator Therapy: No Contraindication/Reason for not providing: as per cardiology pt has advanced prostate ca only medical tx Cardiac Resynchronization Therapy Prescribed: No Contraindication/Reason for not providing: pt has recent cath - Follow up Will be discharged to: Home Follow Up Date (must be within 7 days from discharge): 02/17/17 Follow Up Time: 09:00
--- NOTE | 2017-02-15 08:05 | PCM.HF ---
Heart Failure Core Measure - Heart Failure Left Ventricular Function to be assessed after discharge: No WINTER Inhibitor Prescribed: No Contraindication/Reason for not providing: hypotensive Beta-Mariana Prescribed: Metoprolol Succinate Angiotensin II Receptor Mariana Prescribed: No Contraindication/Reason for not providing: hypotensive AnticoagulationTherapy for Atrial Fibrillation/Atrialflutter: No Contraindication/Reason for not providing: patient refused Aldosterone Antagonist Prescribed: Yes Hydralazine Nitrate Prescribed: No Contraindication/Reason for not providing: hypotensive Implantable Cardioverter Defibrillator Therapy: No Contraindication/Reason for not providing: patient refused Cardiac Resynchronization Therapy Prescribed: No Contraindication/Reason for not providing: not indicated - Follow up Will be discharged to: Home Follow Up Date (must be within 7 days from discharge): 02/21/17 Follow Up Time: 09:00
--- NOTE | 2017-02-15 08:09 | HP ---
The patient is a [id number]-male with heart failure, liver disease. Chief complaint of weakness, fat igue, swelling of the abdomen and scrotum. The patient came to the ER, advised admission. PHYSICAL EXAMINATION: VITAL SIGNS: Temperature 98, pulse 90. HEENT: Within normal limits. NECK: Supple. CHEST: Symmetrical air entry. ABDOMEN: Mildly distended. EXTREMITIES: 1+ pedal edema. The patient had scrotal edema. The patient has congestive heart failure, liver disease, patient bedr est, supportive care. Franco Erickson MD cc: [id number] TT: 02/11/2017 10:22:19 jn 02/15/2017 07:08:36
--- NOTE | 2017-02-15 08:26 | DS ---
The patient admitted to hospital with the chief complaint of swelling of the abdomen and scrotum and shortness of breath. The patient got IV Lasix, supportive care and paracentesis. Discharged to [facility] as an outpatient. Franco Erickson MD cc: [id number] TT: 02/13/2017 19:08:30 dn
[2017-02-15 17:12] LABS: TOTAL PROTEIN PERITONEAL FLUID 4.3 g/dL
== END 2017-02-14 16:57 | disposition home or self-care (01) | DRG 292 ==
LOC: C.ER 09:24 → C.9E 11:57 → C.5T 13:58 → OBSVTOIN 02-12 11:23
PROVIDERS: ADMIT Internal Medicine Pulmonary Disease; ATTEND Internal Medicine Pulmonary Disease
PROC: 0W9G3ZX Drainage of Peritoneal Cavity, Percutaneous Approach, Diagnostic (ICD-10-PCS; principal; 2017-02-13)
PROC: BW40ZZZ Ultrasonography of Abdomen (ICD-10-PCS; 2017-02-13)
DX: I11.0 Hypertensive heart disease with heart failure (principal); R18.8 Other ascites; I42.0 Dilated cardiomyopathy; I47.2 Ventricular tachycardia; I48.92 Unspecified atrial flutter; I31.3 Pericardial effusion (noninflammatory); C79.51 Secondary malignant neoplasm of bone; I50.30 Unspecified diastolic (congestive) heart failure; C61 Malignant neoplasm of prostate; N43.3 Hydrocele, unspecified; I25.10 Atherosclerotic heart disease of native coronary artery without angina pectoris; I48.91 Unspecified atrial fibrillation; D75.9 Disease of blood and blood-forming organs, unspecified; K74.60 Unspecified cirrhosis of liver; N50.89 Other specified disorders of the male genital organs; Z92.3 Personal history of irradiation; Z92.21 Personal history of antineoplastic chemotherapy

== ENCOUNTER 2017-03-09 08:14 | Emergency (ER) | payer MEDICARE ==
[2017-03-09 08:15] VITALS: BMI 23.0
--- NOTE | 2017-03-09 08:41 | C.PDOC ---
History Of Present Illness 76 y/o male presents to ED with c/o right hip pain for 2 days. Note patient points to buttocks when he says "hip pain". 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 Denies trauma, fall, radiation of pain, abdominal pain, nausea, vomiting, urinary symptoms, or other complaints. Notes he took Tylenol without relief. No history of similar pain in the past. Time Seen by Provider: 03/09/17 08:30 Chief Complaint (Nursing): Back Pain History Per: Patient History/Exam Limitations: no limitations Onset/Duration Of Symptoms: Days Current Symptoms Are (Timing): Still Present Quality Of Discomfort: "Pain" Previous Symptoms: None Associated Symptoms: None Recent travel outside of the [place]: No Past Medical History Reviewed: Historical Data, Nursing Documentation, Vital Signs Vital Signs: Last Vital Signs Temp 97.7 F 03/09/17 10:19 Pulse 69 03/09/17 10:19 Resp 18 03/09/17 10:19 BP 128/75 03/09/17 10:19 Pulse Ox 97 03/09/17 10:58 - Medical History PMH: CAD, CHF, Gastritis, Gall Bladder Disease, HTN - [facility] Procedures DRAINAGE OF PERITONEAL CAVITY, PERCUTANEOUS APPROACH, DIAGN (02/12/17) ULTRASONOGRAPHY OF ABDOMEN (02/12/17) Family History: States: Unknown Family Hx - Social History Hx Tobacco Use: No Hx Alcohol Use: No Hx Substance Use: No - Immunization History Hx Tetanus Toxoid Vaccination: No Hx Influenza Vaccination: Yes Hx Pneumococcal Vaccination: Yes Review Of Systems Except As Marked, All Systems Reviewed And Found Negative. Constitutional: Negative for: Fever, Chills Cardiovascular: Negative for: Chest Pain Respiratory: Negative for: Cough, Shortness of Breath Gastrointestinal: Negative for: Nausea, Vomiting, Abdominal Pain Genitourinary: Negative for: Dysuria, Frequency, Incontinence Musculoskeletal: Positive for: Other (Hip pain, right) Skin: Negative for: Rash Neurological: Negative for: Weakness, Numbness Physical Exam - Physical Exam Appears: Non-toxic, No Acute Distress Skin: Normal Color, Warm, Dry, No Rash, No Ecchymosis Head: Atraumatic, Normacephalic Eye(s): bilateral: Normal Inspection Neck: Normal ROM Chest: Symmetrical Cardiovascular: Rhythm Regular, No Murmur Respiratory: Normal Breath Sounds, No Rales, No Rhonchi, No Wheezing Gastrointestinal/Abdominal: Soft, No Tenderness, No Distention, No Guarding, No Rebound Back: Normal Inspection, No CVA Tenderness, No Vertebral Tenderness, Paraspinal Tenderness (right lower lumbarsacral and buttock mildly tender on palpation, no erythema or sore), No Other (no hip tenderness) Extremity: Normal ROM, No Deformity, No Swelling Extremity: Bilateral: Atraumatic, Limited ROM To Joint Neurological/Psych: Oriented x3, Normal Speech, Normal Motor, Normal Sensation Gait: Steady ED Course And Treatment O2 Sat by Pulse Oximetry: 97 (RA) Pulse Ox Interpretation: Normal - Other Rad LS Spine XR X-Ray: Interpreted by Me, Viewed By Me Interpretation: negative for acute fx or dislocation Medical Decision Making Medical Decision Making: Plan: * Motrin * LS Spine XR * Reassess Progress: Xray reviewed by me and read by radiologist, no fractures appreciated. Extensive lumbar spondylosis and degenerative disc disease. . Multiple sclerotic foci as discussed above. On reevaluation, patient reports improvement of pain, and is in no acute distress. Patient advised to follow up with PMD within 1-2 days. Disposition Counseled Patient/Family Regarding: Need For Followup - Disposition Referrals: Myriam Haro MD [Staff Provider] - Disposition: HOME/ ROUTINE Disposition Time: 10:24 Condition: IMPROVED Additional Instructions: Thank you for letting us take care of you today. Your provider was NANO Hawthorne. You were treated for low back and hip pain. The emergency medical care you received today was directed at your acute symptoms. If you were prescribed any medication, please fill it and take as directed. It may take several days for your symptoms to resolve. Return to the Emergency Department if your symptoms worsen, do not improve, or if you have any other problems. Thank you for allowing the [facility] team to be part of your care today. Instructions: Arthralgia (ED) - POA Present On Arrival: None - Clinical Impression Clinical Impression: Right low back pain - PA / REPAIRER HELPER / Resident Statement MD/DO has reviewed & agrees with the documentation as recorded. - Scribe Statement The provider has reviewed the documentation as recorded by the Gastonibfederico Aldridge All medical record entries made by the Gasotnibfederico were at my direction and personally dictated by me. I have reviewed the chart and agree that the record accurately reflects my personal performance of the history, physical exam, medical decision making, and the department course for this patient. I have also personally directed, reviewed, and agree with the discharge instructions and disposition.
[2017-03-09 10:20] VITALS: BP 128/75; PULSE 69; RESP 18; TEMP 97.7
[2017-03-09 10:58] VITALS: O2SAT 97
--- NOTE | 2017-03-09 11:24 | RAD ---
PROCEDURE: Radiographs of the Lumbar Spine. HISTORY: pain low right back and buttock COMPARISON: Prior CT 08/24/2016. This showed multiple sclerotic lesions some of these have been previously referenced as sclerotic metastases FINDINGS: BONES: Multiple sclerotic foci right ischium/ acetabulum superior aspect and projecting over each sacroiliac joint. Diffuse thoracolumbar spondylosis exuberant bridging anteriorly at L4-5 No fractures appreciated DISC SPACES: Diffuse disc space narrowing OTHER FINDINGS: None. IMPRESSION: No fractures appreciated. Extensive lumbar spondylosis and degenerative disc disease. . Multiple sclerotic foci as discussed above.
== END 2017-03-09 10:24 | disposition home or self-care (01) ==
LOC: C.ER 08:14
DX: M54.5 Low back pain (principal)

== ENCOUNTER 2017-06-15 09:34 | Observation (INO) | payer BC, MEDICARE ==
[2017-06-15 09:35] VITALS: BMI 23.7
--- NOTE | 2017-06-15 10:27 | C.PDOC ---
History Of Present Illness 76 yo M with history of CHF, HTN and prostate CA with bone metastasis come in for evaluation of recurrent abdominal swelling/ ascities and Left testicular gradually developed for past week. Pt admits, similar sx in past " was drained few times in past here". Pt sts, was seen by PMD who recommend go to ED for further evaluation evaluation and paracentesis. Otherwise, pt denies fever, chills, CP, SOB, dyspnea, palpitation N/V,UTI sx. At the time of evaluation, pt appears comfortable. Time Seen by Provider: 06/15/17 09:58 Chief Complaint (Nursing): Abdominal Pain History Per: Patient History/Exam Limitations: no limitations Onset/Duration Of Symptoms: Days Current Symptoms Are (Timing): Still Present Location Of Pain/Discomfort: Diffuse Associated Symptoms: denies: Fever, Vomiting, Diarrhea, Urinary Symptoms Recent travel outside of the [place]: No Past Medical History Reviewed: Historical Data, Nursing Documentation, Vital Signs Vital Signs: Last Vital Signs Temp 97.3 F L 06/15/17 15:00 Pulse 70 06/15/17 15:00 Resp 22 06/15/17 15:00 BP 127/85 06/15/17 15:00 Pulse Ox 99 06/15/17 15:00 - Medical History PMH: CAD, CHF, Gastritis, Gall Bladder Disease, HTN Surgical History: Denies: Pacemaker - [facility] Procedures DRAINAGE OF PERITONEAL CAVITY, PERCUTANEOUS APPROACH, DIAGN (02/12/17) ULTRASONOGRAPHY OF ABDOMEN (02/12/17) Family History: States: Unknown Family Hx - Social History Hx Tobacco Use: No Hx Alcohol Use: No Hx Substance Use: No - Immunization History Hx Tetanus Toxoid Vaccination: No Hx Influenza Vaccination: Yes Hx Pneumococcal Vaccination: Yes Review Of Systems Except As Marked, All Systems Reviewed And Found Negative. Constitutional: Negative for: Fever, Chills Cardiovascular: Negative for: Chest Pain Respiratory: Negative for: Cough, Shortness of Breath, Wheezing Gastrointestinal: Positive for: Other (abdominal swelling). Negative for: Vomiting, Diarrhea Skin: Negative for: Rash Neurological: Negative for: Headache, Dizziness Physical Exam - Physical Exam Appears: Well, Non-toxic, Chronically Ill Skin: Normal Color, Warm, Jaundice (slight) Head: Normacephalic Eye(s): bilateral: PERRL Oral Mucosa: Moist, No Drooling Throat: No Erythema, No Drooling Neck: Supple Cardiovascular: Rhythm Regular, No Murmur, No JVD Respiratory: No Decreased Breath Sounds, No Accessory Muscle Use, No Stridor, No Wheezing Gastrointestinal/Abdominal: Ascites (significant) Male Genital: Testicular Swelling (left sided testcular edema, non-tender. Noted same findings on previous admission to ED, pt reports no changes.) Extremity: Normal ROM, No Pedal Edema, No Deformity, No Other Neurological/Psych: Oriented x3, Normal Speech ED Course And Treatment - Laboratory Results Result Diagrams: 06/15/17 10:38 06/15/17 10:38 ECG: Interpreted By Me, Viewed By Me (and ED attending) ECG Interpretation: No Changes From Prior Interpretation Of ECG: SR@63/min, LAD, low QRS voltage, no acute ST-T changes. O2 Sat by Pulse Oximetry: 100 Pulse Ox Interpretation: Normal Progress Note: Blood work review and appears at baseline. Pt remained stable during the ED evaluation. Afebrile, hemodynamicalys table. Non-toxic. case dsicussed with medicineon-call and admission arranged. IR) notified about admission and will have paracentesis inpatient. Disposition - Disposition Disposition: HOSPITALIZED Disposition Time: 12:01 Condition: STABLE - Clinical Impression Clinical Impression: Prostate cancer, Ascites - PA / DORMITORY COUNSELOR / Resident Statement MD/DO has reviewed & agrees with the documentation as recorded. - Scribe Statement The provider has reviewed the documentation as recorded by the Scribe SM All medical record entries made by the Scribe were at my direction and personally dictated by me. I have reviewed the chart and agree that the record accurately reflects my personal performance of the history, physical exam, medical decision making, and the department course for this patient. I have also personally directed, reviewed, and agree with the discharge instructions and disposition.
[2017-06-15 10:41] LABS: BASO % 0.3 % (0.0-2.0); EOS % 0.1 % (0.0-4.0); HEMATOCRIT 29.3 % (35.0-51.0); LYMPH # 0.4 K/uL (1.0-4.3); LYMPH % 6.7 % (20.0-40.0); MEAN CORPUSCULAR HEMOGLOBIN 28.6 pg (27.0-31.0); MEAN CORPUSCULAR HGB CONC 31.7 g/dL (33.0-37.0); MEAN PLATELET VOLUME 9.8 fL (7.2-11.7); MONO # 0.6 K/uL (0.0-0.8); MONO % 9.2 % (0.0-10.0); NRBC % 0.1 % (0.0-2.0); PLATELET COUNT 124 K/uL (130-400); RED CELL DISTRIBUTION WIDTH 18.8 % (11.5-14.5); WHITE BLOOD COUNT 6.4 K/uL (4.8-10.8)
[2017-06-15 10:43] LABS: MEAN CELL VOLUME 90.4 fL (80.0-94.0)
[2017-06-15 10:52] LABS: INR 1.3
[2017-06-15 10:59] LABS: CHLORIDE 105 mmol/L (98-107); POTASSIUM 4.6 mmol/L (3.6-5.2); SODIUM 136 mmol/L (132-148)
[2017-06-15 11:01] LABS: BILIRUBIN,TOTAL 0.9 mg/dL (0.2-1.3); GFR AFRICAN-AMERICAN > 60
[2017-06-15 11:02] LABS: ALKALINE PHOSPHATASE 785 U/L (38-126); ALT/SGPT 28 U/L (21-72); AST/SGOT 38 U/L (17-59); BLOOD UREA NITROGEN 19 mg/dL (9-20); CARBON DIOXIDE 23 mmol/L (22-30); GLUCOSE,RANDOM 76 mg/dL (75-110); TOTAL PROTEIN 6.4 g/dL (6.3-8.3)
[2017-06-15 11:03] LABS: CALCIUM 8.3 mg/dl (8.6-10.4)
[2017-06-15 11:20] LABS: EOSINOPHIL 1 % (0-4); NEUTROPHIL 87 % (50-75); TOTAL CELLS COUNTED 100
--- NOTE | 2017-06-15 15:19 | CP.PCM.HP ---
Past Patient History - Infectious Disease Hx of Infectious Diseases: None - Past Medical History & Family History Past Medical History?: Yes - Past Social History Smoking Status: Former Smoker - CARDIAC Hx Congestive Heart Failure: Yes Hx Hypertension: Yes Hx Pacemaker: No - PULMONARY Hx Respiratory Disorders: No - NEUROLOGICAL Hx Neurological Disorder: No - HEENT Hx HEENT Problems: No - RENAL Hx Chronic Kidney Disease: No - ENDOCRINE/METABOLIC Hx Endocrine Disorders: No - HEMATOLOGICAL/ONCOLOGICAL Hx Blood Disorders: Yes Hx Cancer: Yes (PROSTATE) Hx Chemotherapy: Yes - INTEGUMENTARY Hx Dermatological Problems: No - MUSCULOSKELETAL/RHEUMATOLOGICAL Hx Musculoskeletal Disorders: Yes Hx Falls: No - GASTROINTESTINAL Hx Gall Bladder Disease: Yes Hx Gastritis: Yes - GENITOURINARY/GYNECOLOGICAL Hx Genitourinary Disorders: Yes - PSYCHIATRIC Hx Substance Use: No - SURGICAL HISTORY Hx Surgeries: Yes Other/Comment: hernia repair 03/20/17 - ANESTHESIA Hx Anesthesia: Yes Hx Anesthesia Reactions: No Hx Malignant Hyperthermia: No Meds Allergies/Adverse Reactions: Allergies Allergy/AdvReac Type Severity Reaction Status Date / Time No Known Allergies Allergy Verified 06/15/17 09:39 Results - Vital Signs Recent Vital Signs: Last Vital Signs Temp 97.5 F L 06/15/17 09:41 Pulse 62 06/15/17 12:30 Resp 20 06/15/17 12:30 BP 123/80 06/15/17 12:30 Pulse Ox 99 06/15/17 12:30 - Labs Result Diagrams: 06/15/17 10:38 06/15/17 10:38 Labs: Laboratory Results - last 24 hr 06/15/17 06/15/17 06/15/17 10:38 10:38 10:38 WBC 6.4 RBC 3.24 L Hgb 9.3 L D Hct 29.3 L MCV 90.4 D MCH 28.6 MCHC 31.7 L RDW 18.8 H Plt Count 124 L MPV 9.8 Neut % (Auto) 83.7 H Lymph % (Auto) 6.7 L [place] % (Auto) 9.2 Eos % (Auto) 0.1 Baso % (Auto) 0.3 Neut # 5.4 Lymph # 0.4 L [place] # 0.6 Eos # 0.0 Baso # 0.0 Neutrophils % (Manual) 87 H Band Neutrophils % 1 Lymphocytes % (Manual) 8 L Monocytes % (Manual) 3 Eosinophils % (Manual) 1 Platelet Estimate Slightly decreased L Polychromasia Slight Hypochromasia (manual) Slight Anisocytosis (manual) Slight Tear Drop Cells Slight Ovalocytes Slight PT 14.7 H INR 1.3 APTT 32 Sodium 136 Potassium 4.6 Chloride 105 Carbon Dioxide 23 Anion Gap 12 BUN 19 Creatinine 1.3 Est GFR ( Amer) > 60 Est GFR (Non-Af Amer) 54 Random Glucose 76 Calcium 8.3 L Total Bilirubin 0.9 AST 38 ALT 28 Alkaline Phosphatase 785 H Troponin I 0.0370 NT-Pro-B Natriuret Pep 9170 H Total Protein 6.4 Albumin 3.3 L Globulin 3.2 Albumin/Globulin Ratio 1.0
--- NOTE | 2017-06-15 18:34 | CP.PCM.HP ---
History of Present Illness - History of Present Illness History of Present Illness: PGY-1 H&P for Dr. Jacinto CC: "Fluid in my belly" This is a 76 year old male with PMHx Prostate CA with mets to bone, CAD, Atrial flutter s/p ablation, gastritis, HTN who presents complaining of excess fluid in his abdomen. Patient states that he routinely gets paracentesis for recurrent ascites. Patient states that his cancer is well controlled and sees Dr. Adamson for management. Patient denies abdominal pain presently. Patient denies n/v/c/d and changes in stool or bowel habits. Patient seems to be a poor historian and cannot comment on his medical history further, but he states that the fluid seems to have started accumulating 1 week ago. There is also left scrotal swelling which has been ongoing for an unspecified amount of time. Patient also states that his legs will get intermittently swollen, and he wears compression stockings for them. Per review of the EMR, patient was diagnosed with pancreatic cancer in 2009 and had hormonal therapy and chemotherapy. PMHx: Prostate CA with mets to bone, CAD, Atrial flutter s/p ablation, gastritis , HTN, bilateral hydrocele PSHx: Cardiac Cath (), Inguinal Hernia Repair (03/20/17) Allergies: NKDA Social Hx: Former Smoker, quit in 1974. Denies alcohol, drugs. Fam Hx: Denies Home Meds: Flomax 0.4 daily, Amiodarone 200 mg BID, Colcrys 0.6 mg, Bentyl 20 mg TID, Synthroid 25 mcg for 3 weeks only before gets dose changed (disp on 06/07 ), Pantoprazole 40 mg daily, Famotidine 30 mg daily PMD: Dr. Haro Heme/onc: Dr. Adamson Cardio: Dr. Santos Present on Admission - Present on Admission Any Indicators Present on Admission: No Review of Systems - Constitutional Constitutional: absent: Chills, Fever - EENT Eyes: absent: Change in Vision - Cardiovascular Cardiovascular: absent: Chest Pain - Respiratory Respiratory: absent: Cough, Dyspnea, Wheezing - Gastrointestinal Gastrointestinal: absent: Abdominal Pain, Change in Bowel Habits, Constipation, Diarrhea, Nausea, Vomiting - Genitourinary Genitourinary: absent: Dysuria - Musculoskeletal Musculoskeletal: Other (right leg pain) - Integumentary Integumentary: absent: Rash - Neurological Neurological: absent: Dizziness, Numbness, Tingling, Weakness - Endocrine Endocrine: absent: Palpitations Past Patient History - Infectious Disease Hx of Infectious Diseases: None - Past Medical History & Family History Past Medical History?: Yes - Past Social History Smoking Status: Former Smoker - CARDIAC Hx Congestive Heart Failure: Yes Hx Hypertension: Yes Hx Pacemaker: No - PULMONARY Hx Respiratory Disorders: No - NEUROLOGICAL Hx Neurological Disorder: No - HEENT Hx HEENT Problems: No - RENAL Hx Chronic Kidney Disease: No - ENDOCRINE/METABOLIC Hx Endocrine Disorders: No - HEMATOLOGICAL/ONCOLOGICAL Hx Blood Disorders: Yes Hx Cancer: Yes (PROSTATE) Hx Chemotherapy: Yes - INTEGUMENTARY Hx Dermatological Problems: No - MUSCULOSKELETAL/RHEUMATOLOGICAL Hx Musculoskeletal Disorders: Yes Hx Falls: No - GASTROINTESTINAL Hx Gall Bladder Disease: Yes Hx Gastritis: Yes - GENITOURINARY/GYNECOLOGICAL Hx Genitourinary Disorders: Yes - PSYCHIATRIC Hx Substance Use: No - SURGICAL HISTORY Hx Surgeries: Yes Other/Comment: hernia repair 03/20/17 - ANESTHESIA Hx Anesthesia: Yes Hx Anesthesia Reactions: No Hx Malignant Hyperthermia: No Meds Allergies/Adverse Reactions: Allergies Allergy/AdvReac Type Severity Reaction Status Date / Time No Known Allergies Allergy Verified 06/15/17 09:39 Physical Exam - Constitutional Appears: No Acute Distress - Head Exam Head Exam: ATRAUMATIC, NORMOCEPHALIC - Eye Exam Eye Exam: EOMI, PERRL - ENT Exam ENT Exam: Mucous Membranes Moist - Respiratory Exam Respiratory Exam: Clear to Auscultation Bilateral. absent: Rales, Rhonchi, Wheezes - Cardiovascular Exam Cardiovascular Exam: REGULAR RHYTHM, +S1, +S2 - GI/Abdominal Exam GI & Abdominal Exam: Distended, Normal Bowel Sounds, Soft. absent: Tenderness - Exam Exam: Scrotal Swelling (left) - Extremities Exam Extremities exam: Positive for: pedal edema (bilateral) Additional comments: healing lesion on medial distal right leg that is painful to the touch - Back Exam Back exam: absent: CVA tenderness (L), CVA tenderness (R) - Neurological Exam Neurological exam: Alert, CN II-XII Intact, Oriented x3 - Psychiatric Exam Psychiatric exam: Normal Affect, Normal Mood - Skin Skin Exam: Dry, Warm Results - Vital Signs Recent Vital Signs: Last Vital Signs Temp 97.3 F L 06/15/17 15:00 Pulse 70 06/15/17 15:00 Resp 22 06/15/17 15:00 BP 127/85 06/15/17 15:00 Pulse Ox 100 06/15/17 17:46 - Labs Result Diagrams: 06/15/17 10:38 06/15/17 10:38 Labs: Laboratory Results - last 24 hr 06/15/17 06/15/17 06/15/17 10:38 10:38 10:38 WBC 6.4 RBC 3.24 L Hgb 9.3 L D Hct 29.3 L MCV 90.4 D MCH 28.6 MCHC 31.7 L RDW 18.8 H Plt Count 124 L MPV 9.8 Neut % (Auto) 83.7 H Lymph % (Auto) 6.7 L [place] % (Auto) 9.2 Eos % (Auto) 0.1 Baso % (Auto) 0.3 Neut # 5.4 Lymph # 0.4 L [place] # 0.6 Eos # 0.0 Baso # 0.0 Neutrophils % (Manual) 87 H Band Neutrophils % 1 Lymphocytes % (Manual) 8 L Monocytes % (Manual) 3 Eosinophils % (Manual) 1 Platelet Estimate Slightly decreased L Polychromasia Slight Hypochromasia (manual) Slight Anisocytosis (manual) Slight Tear Drop Cells Slight Ovalocytes Slight PT 14.7 H INR 1.3 APTT 32 Sodium 136 Potassium 4.6 Chloride 105 Carbon Dioxide 23 Anion Gap 12 BUN 19 Creatinine 1.3 Est GFR ( Amer) > 60 Est GFR (Non-Af Amer) 54 Random Glucose 76 Calcium 8.3 L Total Bilirubin 0.9 AST 38 ALT 28 Alkaline Phosphatase 785 H Troponin I 0.0370 NT-Pro-B Natriuret Pep 9170 H Total Protein 6.4 Albumin 3.3 L Globulin 3.2 Albumin/Globulin Ratio 1.0 Assessment & Plan - Assessment and Plan (Free Text) Plan: Ascites Dr. Chaparro consulted for Paracentesis. Paracentesis fluid studies ordered. Lasix 80 mg IV BID. Aldactone 25 mg PO daily History of Coronary Artery Disease Restarted home med Amiodarone 200 mg PO BID History of Prostate Cancer Restarted home Flomax 0.4 mg PO daily Prophylactic Measure Protonix 40 mg PO daily Heart Healthy Diet SCDs Restarted Home Synthroid 25 mcg PO daily Case DW Dr. Ophelia Chaseed PGY-1
[2017-06-15 23:51] VITALS: RESP 20; O2SAT 99
[2017-06-16] MEDS ORDERED: Levothyroxine 25 MCG TAB PO SCH (06:30)
[2017-06-16 07:44] VITALS: TEMP 98.1
[2017-06-16 08:02] LABS: BASO % 0.3 % (0.0-2.0); EOS % 0.3 % (0.0-4.0); HEMATOCRIT 32.7 % (35.0-51.0); LYMPH # 0.5 K/uL (1.0-4.3); MEAN CELL VOLUME 88.7 fL (80.0-94.0); MEAN CORPUSCULAR HEMOGLOBIN 28.6 pg (27.0-31.0); MEAN CORPUSCULAR HGB CONC 32.3 g/dL (33.0-37.0); MEAN PLATELET VOLUME 11.2 fL (7.2-11.7); MONO # 0.7 K/uL (0.0-0.8); MONO % 8.8 % (0.0-10.0); PLATELET COUNT 140 K/uL (130-400); RED CELL DISTRIBUTION WIDTH 18.8 % (11.5-14.5); WHITE BLOOD COUNT 7.5 K/uL (4.8-10.8)
[2017-06-16 08:26] LABS: POTASSIUM 4.6 mmol/L (3.6-5.2)
[2017-06-16 08:29] LABS: BILIRUBIN,TOTAL 0.9 mg/dL (0.2-1.3); TOTAL PROTEIN 6.6 g/dL (6.3-8.3)
[2017-06-16 08:30] LABS: ALB/GLOB RATIO 0.9 (1.0-2.1); CALCIUM 8.4 mg/dl (8.6-10.4)
[2017-06-16 09:48] LABS: NEUTROPHIL 92 % (50-75); NUCLEATED RED BLOOD CELL 1 % (0-0); TOTAL CELLS COUNTED 100
[2017-06-16] MEDS ORDERED: Pantoprazole 40 mg EC Tab PO SCH (10:00)
--- NOTE | 2017-06-16 12:36 | PCM.SURG1 ---
Surgeon's Initial Post Op Note - Surgeon's Notes Surgeon: Bijan Chaparro MD Solutions Engineer: NONE Type of Anesthesia: Local Pre-Operative Diagnosis: Ascites Operative Findings: US showed a large amount of ascites Post-Operative Diagnosis: Ascites Operation Performed: US guided paracentesis. Specimen/Specimens Removed: 5 liters of yellow fluid Estimated Blood Loss: EBL {In ML}: 0 Blood Products Given: N/A Drains Used: No Drains Post-Op Condition: Fair Date of Surgery/Procedure: 06/16/17 Time of Surgery/Procedure: 12:50
[2017-06-16] MEDS: Albumin Human 25% (12.5 gm/50 ml) IV SCH ×3 (13:51→17:41)
[2017-06-16 13:56] LABS: BODY FLUID TYPE PERITONEAL/ASCITES
[2017-06-16 15:07] LABS: BF GROSS APPEARANCE CLEAR (CLEAR)
[2017-06-16 17:54] VITALS: BP 108/60; PULSE 64
--- NOTE | 2017-06-16 18:33 | CP.PCM.DIS ---
Provider - Provider Date of Admission: 06/15/17 12:03 Attending physician: Tre Jacinto Jr, MD Consults: Dr. Chaparro--Interventional Radiology Time Spent in preparation of Discharge (in minutes): 35 Diagnosis - Discharge Diagnosis (1) Ascites Status: Acute (2) History of prostate cancer Status: Chronic (3) History of coronary artery disease Status: Chronic (4) Prophylactic measure Status: Acute Hospital Course - Lab Results Lab Results: Most Recent Lab Values WBC 7.5 K/uL (4.8-10.8) 06/16/17 07:56 RBC 3.69 Mil/uL (4.40-5.90) L 06/16/17 07:56 Hgb 10.6 g/dL (12.0-18.0) L 06/16/17 07:56 Hct 32.7 % (35.0-51.0) L 06/16/17 07:56 MCV 88.7 fL (80.0-94.0) 06/16/17 07:56 MCH 28.6 pg (27.0-31.0) 06/16/17 07:56 MCHC 32.3 g/dL (33.0-37.0) L 06/16/17 07:56 RDW 18.8 % (11.5-14.5) H 06/16/17 07:56 Plt Count 140 K/uL (130-400) 06/16/17 07:56 MPV 11.2 fL (7.2-11.7) 06/16/17 07:56 Neut % (Auto) 83.6 % (50.0-75.0) H 06/16/17 07:56 Lymph % (Auto) 7.0 % (20.0-40.0) L 06/16/17 07:56 [place] % (Auto) 8.8 % (0.0-10.0) 06/16/17 07:56 Eos % (Auto) 0.3 % (0.0-4.0) 06/16/17 07:56 Baso % (Auto) 0.3 % (0.0-2.0) 06/16/17 07:56 Neut # 6.3 K/uL (1.8-7.0) 06/16/17 07:56 Lymph # 0.5 K/uL (1.0-4.3) L 06/16/17 07:56 [place] # 0.7 K/uL (0.0-0.8) 06/16/17 07:56 Eos # 0.0 K/uL (0.0-0.7) 06/16/17 07:56 Baso # 0.0 K/uL (0.0-0.2) 06/16/17 07:56 Neutrophils % (Manual) 92 % (50-75) H 06/16/17 07:56 Band Neutrophils % 1 % (0-2) 06/15/17 10:38 Lymphocytes % (Manual) 5 % (20-40) L 06/16/17 07:56 Monocytes % (Manual) 3 % (0-10) 06/16/17 07:56 Eosinophils % (Manual) 1 % (0-4) 06/15/17 10:38 Nucleated RBC % 1 % (0-0) H 06/16/17 07:56 Platelet Estimate Normal (NORMAL) 06/16/17 07:56 Polychromasia Slight 06/15/17 10:38 Hypochromasia (manual) Slight 06/15/17 10:38 Anisocytosis (manual) Slight 06/16/17 07:56 Tear Drop Cells Slight 06/15/17 10:38 Ovalocytes Slight 06/15/17 10:38 PT 14.7 SECONDS (9.7-12.2) H 06/15/17 10:38 INR 1.3 06/15/17 10:38 APTT 32 SECONDS (21-34) 06/15/17 10:38 Sodium 134 mmol/L (132-148) 06/16/17 07:56 Potassium 4.6 mmol/L (3.6-5.2) 06/16/17 07:56 Chloride 101 mmol/L (98-107) 06/16/17 07:56 Carbon Dioxide 20 mmol/L (22-30) L 06/16/17 07:56 Anion Gap 18 (10-20) 06/16/17 07:56 BUN 22 mg/dL (9-20) H 06/16/17 07:56 Creatinine 1.4 mg/dL (0.8-1.5) 06/16/17 07:56 Est GFR ( Amer) 60 06/16/17 07:56 Est GFR (Non-Af Amer) 49 06/16/17 07:56 Random Glucose 85 mg/dL (75-110) 06/16/17 07:56 Calcium 8.4 mg/dl (8.6-10.4) L 06/16/17 07:56 Total Bilirubin 0.9 mg/dL (0.2-1.3) 06/16/17 07:56 AST 36 U/L (17-59) 06/16/17 07:56 ALT 24 U/L (21-72) 06/16/17 07:56 Alkaline Phosphatase 816 U/L (38-126) H 06/16/17 07:56 Troponin I 0.0370 ng/mL (0.00-0.120) 06/15/17 10:38 NT-Pro-B Natriuret Pep 9170 pg/mL (0-900) H 06/15/17 10:38 Total Protein 6.6 g/dL (6.3-8.3) 06/16/17 07:56 Albumin 3.2 g/dL (3.5-5.0) L 06/16/17 07:56 Globulin 3.4 gm/dL (2.2-3.9) 06/16/17 07:56 Albumin/Globulin Ratio 0.9 (1.0-2.1) L 06/16/17 07:56 Fluid Source Peritoneal/ascites 06/16/17 13:55 Fluid Appearance Clear (CLEAR) 06/16/17 13:55 Fluid WBC 143.0 /mm3 (0.0-300.0) 06/16/17 13:55 Fluid RBC 415.0 /mm3 (0.0-0.0) H 06/16/17 13:55 - Hospital Course Hospital Course: On admission: "This is a 76 year old male with PMHx Prostate CA with mets to bone, CAD, Atrial flutter s/p ablation, gastritis, HTN who presents complaining of excess fluid in his abdomen. Patient states that he routinely gets paracentesis for recurrent ascites. Patient states that his cancer is well controlled and sees Dr. Adamson for management. Patient denies abdominal pain presently. Patient denies n/v/c/d and changes in stool or bowel habits. Patient seems to be a poor historian and cannot comment on his medical history further, but he states that the fluid seems to have started accumulating 1 week ago. There is also left scrotal swelling which has been ongoing for an unspecified amount of time. Patient also states that his legs will get intermittently swollen, and he wears compression stockings for them. Per review of the EMR, patient was diagnosed with pancreatic cancer in 2009 and had hormonal therapy and chemotherapy." Hospital Course: Patient admitted for ascites. Dr. Chaparro interventional radiologist consulted for paracentesis. Patient given 2 doses of Lasix IV 80 mg and 1 dose of Aldactone 25 mg PO to aid in diuresis. On 06/16/17, 5 liters of clear yellow fluid removed via paracentesis. Albumin 12.5 gm x 3 doses were given after paracentesis. Patient discharged on Lasix 40 mg PO BID to reduce recurrence and told to follow up with his primary doctor and aquaculture farm manager. This is a summary of the hospital course. For more information, refer to the medical records. Discharge Exam - Head Exam Head Exam: ATRAUMATIC, NORMOCEPHALIC - Eye Exam Eye Exam: EOMI, PERRL - ENT Exam ENT Exam: Mucous Membranes Moist - Respiratory Exam Respiratory Exam: Clear to PA & Lateral, NORMAL BREATHING PATTERN. absent: Rales, Rhonchi, Wheezes - Cardiovascular Exam Cardiovascular Exam: REGULAR RHYTHM, +S1, +S2 - GI/Abdominal Exam GI & Abdominal Exam: Normal Bowel Sounds, Soft. absent: Tenderness - Extremities Exam Extremities exam: pedal pulses present - Neurological Exam Neurological exam: Alert, CN II-XII Intact, Oriented x3 - Psychiatric Exam Psychiatric exam: Normal Affect, Normal Mood - Skin Skin Exam: Dry, Warm Discharge Plan - Discharge Medications Prescriptions: Furosemide [Lasix] 40 mg PO BID 30 Days #60 tablet - Follow Up Plan Condition: STABLE Disposition: HOME/ ROUTINE Instructions: Furosemide (By mouth), Heart Failure (DC), Prostate Cancer (DC), Ascites (DC) Additional Instructions: Please follow up with your primary doctor Dr. Haro within 1 week of discharge. Take the Lasix which is the water pill. Take 40 mg by mouth twice a day. Please follow up with Dr. Adamson for management of your prostate cancer. Please follow up with Dr. Santos your aquaculture farm manager as well. If there are any new or worsening symptoms, please return to the emergency room. Referrals: Leon Santos MD [Staff Provider] - Sally Adamson MD [Staff Provider] - Myriam Haro MD [Staff Provider] -
--- NOTE | 2017-06-19 10:39 | US ---
Date of Procedure: 06/16/2017 PROCEDURE: Ultrasound-guided paracentesis, CPT 16518 Medications: 7 cc 1% Lidocaine HISTORY: Ascites, abdominal pain TECHNIQUE: Following informed consent , the patient was placed supine on the stretcher and the site was marked. A limited abdominal ultrasound was performed that showed a large amount of intra-abdominal fluid. Procedural time out was called and the Pt's abdomen was marked and prepped and draped in the usual sterile fashion. Ultrasound-guided large volume paracentesis performed. A total of 5 liters of straw colored fluid was removed without complication. IMPRESSION: Ultrasound-guided large volume paracentesis.
== END 2017-06-16 20:18 | disposition home or self-care (01) ==
LOC: C.ER 09:34 → C.9E 12:03 → C.3T 14:42
PROVIDERS: ADMIT Internal Medicine; ATTEND Internal Medicine
DX: R18.8 Other ascites (principal); C61 Malignant neoplasm of prostate; C79.51 Secondary malignant neoplasm of bone; I11.0 Hypertensive heart disease with heart failure; I25.10 Atherosclerotic heart disease of native coronary artery without angina pectoris
CPT/HCPCS: 36415; 49083; 80053; 82042; 83880; 84484; 85025; 85610; 85730; 87070; 87075; 87101; 89051; 96374; 97116; 97162; 99285; G0378; G8978; G8979; J1940; P9047

== ENCOUNTER 2017-09-12 19:27 | Inpatient (IN) | payer MEDICARE ==
[2017-09-12 19:28] VITALS: BMI 23.7
[2017-09-12 20:59] LABS: BASO # 0.1 K/uL (0.0-0.2); BASO % 0.6 % (0.0-2.0); EOS % 0.2 % (0.0-4.0); HEMOGLOBIN 10.3 g/dL (12.0-18.0); LYMPH # 0.5 K/uL (1.0-4.3); LYMPH % 5.1 % (20.0-40.0); MEAN CORPUSCULAR HEMOGLOBIN 28.7 pg (27.0-31.0); MEAN CORPUSCULAR HGB CONC 31.2 g/dL (33.0-37.0); MEAN PLATELET VOLUME 9.7 fL (7.2-11.7); MONO # 0.6 K/uL (0.0-0.8); NEUT # 7.9 K/uL (1.8-7.0); NEUT % 87.1 % (50.0-75.0); PLATELET COUNT 150 K/uL (130-400)
[2017-09-12 21:00] LABS: MEAN CELL VOLUME 92.1 fL (80.0-94.0)
[2017-09-12 21:07] LABS: INR 1.3; PROTHROMBIN TIME 14.4 SECONDS (9.7-12.2)
[2017-09-12 21:19] LABS: ALB/GLOB RATIO 1.2 (1.0-2.1); ALBUMIN 3.6 g/dL (3.5-5.0); CALCIUM 7.9 mg/dl (8.6-10.4)
[2017-09-12 21:31] LABS: ANISOCYTOSIS SLIGHT; BANDS 1 % (0-2); EOSINOPHIL 1 % (0-4); HYPOCHROMIC SLIGHT; LYMPHOCYTE 4 % (20-40); MONOCYTE 6 % (0-10); NEUTROPHIL 88 % (50-75); PLATELET ESTIMATE NORMAL (NORMAL); POIKILOCYTOSIS SLIGHT; TOTAL CELLS COUNTED 100; TROPONIN I 0.048 ng/mL (0.00-0.120)
[2017-09-12 21:32] LABS: OVALOCYTES SLIGHT
[2017-09-12] MEDS ORDERED: Pantoprazole 40 mg EC Tab PO STA (21:44)
[2017-09-12] MEDS ORDERED: Pantoprazole 40 mg EC Tab PO ONE (21:51)
--- NOTE | 2017-09-12 23:36 | C.PDOC ---
Time Seen by Provider: 09/12/17 20:09 Chief Complaint (Nursing): Abdominal Pain History Per: Patient, Family Onset/Duration Of Symptoms: Days Current Symptoms Are (Timing): Worse Severity: Severe Location Of Pain/Discomfort: Diffuse Quality Of Discomfort: Unable To Describe, Other (Distension) Alleviating Factors: None Additional History Per: Prior Records Past Medical History Reviewed: Historical Data, Nursing Documentation, Vital Signs Vital Signs: Last Vital Signs Temp 97.4 F L 09/12/17 19:40 Pulse 84 09/12/17 19:40 Resp 18 09/12/17 19:40 BP 160/63 H 09/12/17 19:40 Pulse Ox 100 09/12/17 23:36 - Medical History PMH: CAD, CHF, Gastritis, Gall Bladder Disease, HTN, Malignancy (Prostate) - [facility] Procedures DRAINAGE OF PERITONEAL CAVITY, PERCUTANEOUS APPROACH, DIAGN (02/12/17) ULTRASONOGRAPHY OF ABDOMEN (02/12/17) Family History: States: Unknown Family Hx - Social History Hx Tobacco Use: No Hx Alcohol Use: No Hx Substance Use: No - Immunization History Hx Tetanus Toxoid Vaccination: No Hx Influenza Vaccination: Yes Hx Pneumococcal Vaccination: Yes Review Of Systems Except As Marked, All Systems Reviewed And Found Negative. Constitutional: Positive for: Malaise. Negative for: Fever Cardiovascular: Negative for: Chest Pain Respiratory: Positive for: Shortness of Breath Gastrointestinal: Positive for: Abdominal Pain (discomfort). Negative for: Vomiting Genitourinary: Negative for: Dysuria Musculoskeletal: Negative for: Neck Pain Skin: Negative for: Rash Neurological: Negative for: Weakness, Numbness Physical Exam - Physical Exam Appears: Chronically Ill Skin: Normal Color, Warm, Dry Head: Atraumatic, Normacephalic Eye(s): bilateral: PERRL, EOMI Neck: Normal ROM, Supple Cardiovascular: Rhythm Regular Respiratory: Normal Breath Sounds, No Accessory Muscle Use Gastrointestinal/Abdominal: No Tenderness, Distention, Ascites Back: No CVA Tenderness Extremity: Normal ROM Neurological/Psych: Oriented x3, Normal Motor, Normal Sensation ED Course And Treatment - Laboratory Results Result Diagrams: 09/12/17 20:56 09/12/17 20:56 O2 Sat by Pulse Oximetry: 100 Pulse Ox Interpretation: Normal - Radiology CXR: Interpreted by Me, Viewed By Me CXR Interpretation: Yes: Cardiomegaly Progress - Interventions Interventions:: Observation, Oxygen - Medications Administered Intravenous: Diuretic - Data Reviewed Data Reviewed: Lab, Diagnostic imaging, Old records - Patient Status Patient status: Partially improved - Continuity of Care Discussed patient case with:: Patient, ED Nurse, On-call PMD-pt unassigned - Patient Plan Patient Plan: Admission Disposition Discussed With DrSegundo: Juanito Rawls Comment: He accepted pt on his service and gave admitting orders to the nurse. Doctor Will See Patient In The: Hospital Counseled Patient/Family Regarding: Studies Performed, Diagnosis - Disposition Disposition: HOSPITALIZED Disposition Time: 23:41 Condition: FAIR - Clinical Impression Clinical Impression: Malignant ascites
[2017-09-13] MEDS ORDERED: Pantoprazole 40 mg EC Tab PO SCH (10:00)
[2017-09-13] MEDS ORDERED: Home Med 1 UNIT (Bicalutamide [Casodex] 50 MG) PO SCH (10:00)
[2017-09-13] MEDS ORDERED: Enoxaparin 40 mg Syringe SC SCH (10:00)
[2017-09-13] MEDS ORDERED: CEFUROXIME AXETIL 500 MG PO SCH (10:00)
--- NOTE | 2017-09-13 10:07 | PCM.SURG1 ---
Surgeon's Initial Post Op Note - Surgeon's Notes Surgeon: Justin Kelly MD Apple Packing Header: None Type of Anesthesia: Local Pre-Operative Diagnosis: Ascites Operative Findings: Large volume ascites Post-Operative Diagnosis: same Operation Performed: US Guided Paracentesis Specimen/Specimens Removed: 11.5L straw colored fluid removed. Estimated Blood Loss: EBL {In ML}: 0 Date of Surgery/Procedure: 09/13/17 Time of Surgery/Procedure: 10:07
[2017-09-13] MEDS: Albumin Human 25% (12.5 gm/50 ml) IV SCH ×4 (11:02→13:11)
--- NOTE | 2017-09-13 11:49 | US ---
PROCEDURE: ULTRASOUND-GUIDED PARACENTESIS CLINICAL HISTORY: 77-year-old male with recurrent symptomatic ascites is referred to Interventional Radiology for ultrasound-guided paracentesis. COMPARISON: Ultrasound-guided paracentesis performed 06/16/2017. PROCEDURE: 1. Ultrasound-guided paracentesis. PRE-PROCEDURE FINDINGS: 1. Large volume ascites. POST-PROCEDURE FINDINGS: 1. No evidence of post-procedural complication. INTERVENTIONAL RADIOLOGIST: Justin Kelly M.D. (the attending was present for the entire procedure) ANESTHESIA: None. MEDICATION: Lidocaine 1% for local subcutaneous analgesia. Albumin 25 percent 50 gram IV. COMPLICATIONS: None. PROCEDURE DESCRIPTION AND FINDINGS: The risks, benefits, alternatives and possible complications of the procedure were fully discussed; all questions were answered and informed consent was obtained. The patient was brought into the interventional suite and a pre-procedure 'time-out' was performed. The patient was placed on the fluoroscopy table in the supine position. Preliminary ultrasound images of the right lower quadrant demonstrate a large amount of ascites. The right lower quadrant was prepped and draped in the usual sterile fashion. Maximum sterile barrier precautions were maintained throughout the entire procedure. Following subcutaneous infiltration of lidocaine 1% for local analgesia, under real-time ultrasound guidance, a 5 Beninese centesis catheter was advanced into the right lower quadrant with real-time visualization of needle entry. The ultrasound images were permanently recorded and submitted to the PACS. The inner stylet was removed and the catheter was attached to gentle vacuum suction. A total of 11.5 liters of straw-colored fluid were aspirated. The drainage catheter was then removed. A sterile adhesive bandage was placed over the puncture site. The patient tolerated the procedure well without immediate post-procedure complications and was transferred back to the floor in stable condition. IMPRESSION: SUCCESSFUL ULTRASOUND-GUIDED THERAPEUTIC PARACENTESIS.
--- NOTE | 2017-09-13 11:51 | RAD ---
PROCEDURE: CHEST RADIOGRAPH, 1 VIEW HISTORY: Sob COMPARISON: [facility] 02/10/2017 FINDINGS: LUNGS: Subsegmental atelectasis at right base. PLEURA: Possible small right pleural effusion. Opacification of right costophrenic angle. No left pleural effusion. No pneumothorax. CARDIOVASCULAR: Cardiomegaly. No pulmonary vascular congestive change. OSSEOUS STRUCTURES: No significant abnormalities. VISUALIZED UPPER ABDOMEN: Normal. OTHER FINDINGS: None. IMPRESSION: Cardiomegaly. Possible small right pleural effusion. Right basilar subsegmental atelectasis. No congestive change.
[2017-09-13 14:11] LABS: INR 1.3; PROTHROMBIN TIME 15.1 SECONDS (9.7-12.2)
[2017-09-13 16:21] VITALS: RESP 20
--- NOTE | 2017-09-13 18:59 | CP.PCM.HP ---
Past Patient History - Infectious Disease Hx of Infectious Diseases: None - Past Medical History & Family History Past Medical History?: Yes - Past Social History Smoking Status: Former Smoker - CARDIAC Hx Cardiac Disorders: Yes Hx Congestive Heart Failure: Yes Hx Hypertension: Yes - PULMONARY Hx Respiratory Disorders: No - NEUROLOGICAL Hx Neurological Disorder: No - HEENT Hx HEENT Problems: No - RENAL Hx Chronic Kidney Disease: No - ENDOCRINE/METABOLIC Hx Endocrine Disorders: No - HEMATOLOGICAL/ONCOLOGICAL Hx Blood Disorders: Yes Hx Cancer: Yes (PROSTATE) Hx Chemotherapy: Yes - INTEGUMENTARY Hx Dermatological Problems: No - MUSCULOSKELETAL/RHEUMATOLOGICAL Hx Falls: No - GASTROINTESTINAL Hx Gastrointestinal Disorders: Yes Hx Gall Bladder Disease: Yes Hx Gastritis: Yes - GENITOURINARY/GYNECOLOGICAL Hx Genitourinary Disorders: No - PSYCHIATRIC Hx Substance Use: No - SURGICAL HISTORY Hx Surgeries: Yes Other/Comment: hernia repair 03/20/17 - ANESTHESIA Hx Anesthesia: Yes Hx Anesthesia Reactions: No Hx Malignant Hyperthermia: No Meds Allergies/Adverse Reactions: Allergies Allergy/AdvReac Type Severity Reaction Status Date / Time No Known Allergies Allergy Verified 06/15/17 09:39 Physical Exam - Constitutional Appears: Well - Head Exam Head Exam: ATRAUMATIC, NORMAL INSPECTION, NORMOCEPHALIC - Eye Exam Eye Exam: EOMI, Normal appearance, PERRL Pupil Exam: NORMAL ACCOMODATION, PERRL - ENT Exam ENT Exam: Mucous Membranes Moist, Normal Exam - Neck Exam Neck exam: Positive for: Normal Inspection - Respiratory Exam Respiratory Exam: Decreased Breath Sounds - Cardiovascular Exam Cardiovascular Exam: REGULAR RHYTHM, +S1, +S2 - GI/Abdominal Exam GI & Abdominal Exam: Diminished Bowel Sounds, Soft - Rectal Exam Rectal Exam: Deferred Results - Vital Signs Recent Vital Signs: Last Vital Signs Temp 97.3 F L 09/13/17 15:00 Pulse 68 09/13/17 15:00 Resp 20 09/13/17 15:00 BP 127/77 09/13/17 15:00 Pulse Ox 100 09/13/17 15:00 - Labs Result Diagrams: 09/12/17 20:56 09/12/17 20:56 Labs: Laboratory Results - last 24 hr 09/12/17 09/12/17 09/12/17 20:56 20:56 20:56 WBC 9.0 RBC 3.60 L Hgb 10.3 L Hct 33.1 L MCV 92.1 D MCH 28.7 MCHC 31.2 L RDW 22.0 H Plt Count 150 MPV 9.7 Neut % (Auto) 87.1 H Lymph % (Auto) 5.1 L [place] % (Auto) 7.0 Eos % (Auto) 0.2 Baso % (Auto) 0.6 Neut # 7.9 H Lymph # 0.5 L [place] # 0.6 Eos # 0.0 Baso # 0.1 Neutrophils % (Manual) 88 H Band Neutrophils % 1 Lymphocytes % (Manual) 4 L Monocytes % (Manual) 6 Eosinophils % (Manual) 1 Platelet Estimate Normal Hypochromasia (manual) Slight Poikilocytosis (manual Slight Anisocytosis (manual) Slight Ovalocytes Slight PT 14.4 H INR 1.3 APTT 32 Sodium 136 Potassium 4.6 Chloride 106 Carbon Dioxide 24 Anion Gap 10 BUN 19 Creatinine 1.5 Est GFR ( Amer) 55 Est GFR (Non-Af Amer) 46 Random Glucose 92 Calcium 7.9 L Total Bilirubin 1.6 H AST 60 H D ALT 18 L D Alkaline Phosphatase 667 H Troponin I 0.0480 NT-Pro-B Natriuret Pep 72901 H Total Protein 6.6 Albumin 3.6 Globulin 3.0 Albumin/Globulin Ratio 1.2 Lipase 88 Alpha Fetoprotein Carcinoembryonic Ag CA 19-9 Antigen 09/13/17 09/13/17 09/13/17 13:52 13:52 13:52 WBC RBC Hgb Hct MCV MCH MCHC RDW Plt Count MPV Neut % (Auto) Lymph % (Auto) [place] % (Auto) Eos % (Auto) Baso % (Auto) Neut # Lymph # [place] # Eos # Baso # Neutrophils % (Manual) Band Neutrophils % Lymphocytes % (Manual) Monocytes % (Manual) Eosinophils % (Manual) Platelet Estimate Hypochromasia (manual) Poikilocytosis (manual Anisocytosis (manual) Ovalocytes PT 15.1 H INR 1.3 APTT 33 Sodium Potassium Chloride Carbon Dioxide Anion Gap BUN Creatinine Est GFR ( Amer) Est GFR (Non-Af Amer) Random Glucose Calcium Total Bilirubin AST ALT Alkaline Phosphatase Troponin I NT-Pro-B Natriuret Pep Total Protein Albumin Globulin Albumin/Globulin Ratio Lipase Alpha Fetoprotein 3.6 Carcinoembryonic Ag 6.0 H CA 19-9 Antigen 9.9
--- NOTE | 2017-09-13 20:44 | CON ---
DATE: 09/13/2017 LOCATION: 361, bed B. HISTORY OF PRESENT ILLNESS: I was called for a GI consultation by the admitting medical staff as well as the GI fellow. Patient is seen and fully examined on 09/13/2017. The entire chart is reviewed including but not limited to most recent lab and radiology study results, current and previous medication list, current and previous medical events as well as allergic to medication list as well as all the available current and the previous medical records, and the patient just had abdominal paracentesis by the IR staff. Case was discussed at length with the staff in the floor as well as all the consultants. This is a 77-year-old male, known case for me from previous admission. He was admitted to the hospital through the emergency room, was having complaint of abdominal pain, severe at times, diffuse with increased abdominal girth, generalized weakness and malaise with recent loss of appetite and mild body weight loss. No reported active bleeding, chest pain, chills, or fever or significant complaint of shortness of breath or palpitation. PAST MEDICAL HISTORY: Including but not limited to; 1. Peptic ulcer disease. 2. Hypertension, congestive heart failure with coronary artery disease. 3. Prostatic CA. 4. Status post abdominal paracentesis in 02/2017. FAMILY HISTORY: Unknown. SOCIAL HISTORY: No recent history of cigarette smoking or alcohol intake. CURRENT MEDICATIONS: Medication lists were reviewed. ALLERGIES TO MEDICATION: NONE. LABORATORY DATA: After being admitted to the hospital, initial blood workup showed hemoglobin of 10.3 with hematocrit of 33.1, low with normal platelet count and normal white blood cells, but increased PT to 14.4 with low calcium 7.9, slightly elevated total bilirubin to 1.6 with increased AST of 60 with low ALT but alkaline phosphate elevated to 667 with normal lipase, amylase as well as normal total protein and albumin. PHYSICAL EXAMINATION: GENERAL: A 77-year-old male. VITAL SIGNS: Afebrile with pulse of 74, respiratory rate 20 to 22, blood pressure 128/80. HEENT: Showed pale, dry oral mucous membrane. Nonicteric sclerae. LUNGS: A few scattered crepitation. Breathing sounds are present bilaterally. LYMPH NODES: No lymphadenitis or lymphadenopathy. HEART: Positive S1 and S2. ABDOMEN: Soft with slight distention, with less abdominal distention post abdominal paracentesis. No mass or organomegaly. No rebound tenderness or guarding. RECTAL: The patient refused. EXTREMITIES: Without significant clubbing, cyanosis, or edema. NEUROLOGIC: No reported new neurological deficits, sensory or motor. VASCULAR: Peripheral pulses are present, but decreased at bases. It has to be mentioned that the patient had about 11.5 liters removed by today's ultrasound-guided abdominal paracentesis. It has to be mentioned also that the patient has evidence of lower extremity muscle wasting syndrome. The most recent CAT scan done on 06/12/2017 showed also evidence of diffuse ascites with extensive bone metastatic disease with pericardial effusion and cardiomegaly as well as large left hydrocele at that time with evidence of cholelithiasis. IMPRESSION: 1. 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 2. Status post abdominal paracentesis by IR staff. 3. Multiple past medical history including but not limited to prostatic cancer with bone metastasis, hypertension, coronary artery disease, congestive heart failure with cholelithiasis and peptic ulcer disease by history. SUGGESTION: 1. Agree with your plan. 2. Complete ascitic fluid analysis. 3. Oncology/Hematology consult. 4. Guaiac which I believe to be secondary to chronic disease. 5. If there is subsequent drop of hemoglobin and hematocrit, then endoscopic evaluation of the GI tract to be kept in mind. Otherwise close observation to follow. Halle Tran MD
[2017-09-14] MEDS ORDERED: Phytonadione 10 mg/ml Inj (Adult) SC ONE (11:30)
--- NOTE | 2017-09-14 11:38 | PN ---
DATE: LOCATION: [facility], [facility] B. SUBJECTIVE: This is a 77-year-old male, seen and examined in rounds, appeared to be somewhat sleepy, responding to verbal stimuli with a complaint of mild generalized weakness, being tired and fatigued. The entire chart is reviewed including but not limited to the most recent lab and radiology study results, current and the previous medication list, current and the previous medical events and today's lab is still pending; however, yesterday lab showed PT of 15.1 with increased CEA level 6.0, but normal alpha-fetoprotein and normal CA19-9. Lipase level was 88 before. The official results of the ascetic fluid analysis is still pending and the patient reported no chest pain, significant shortness of breath, palpitation and no reported active bleeding. PHYSICAL EXAMINATION: GENERAL: A 77-year-old male. VITAL SIGNS: Afebrile with pulse of 70, respiratory rate 20 to 22, blood pressure 116/74. HEENT: Showed pale dry oral mucous membrane. Nonicteric sclerae. LUNGS: Few scattered crepitation. Decreased air entry at bases. HEART: Positive S1 and S2. ABDOMEN: Soft with mild generalized tenderness with small amount of ascites. No mass or organomegaly. No rebound tenderness or guarding. EXTREMITIES: Without significant clubbing, cyanosis or edema. NEUROLOGIC: No reported new neurological deficits, sensory or motor. Peripheral pulses are present, but weak bilaterally. IMPRESSION: 1. Ascites, most likely refractory malignant ascites with possible peritoneal metastatic seeding. 2. Known history of prostatic cancer with possible metastasis to the bone. 3. Past medical history including but not limited to hypertension, coronary artery disease, congestive heart failure, peptic ulcer disease, cholelithiasis. 4. Anemia, most likely secondary to above. 5. Elevated CEA level with possibility of primary colon cancer was raised versus metastatic disease to the lower gastrointestinal tract. SUGGESTION: 1. Agree with your plan. 2. Guaiac of the stool every other day x3. 3. Repeat H and H. 4. Further recommendation to follow. 5. If there is significant drop of hemoglobin and hematocrit, then endoscopic evaluation of the GI tract to be kept in mind, otherwise close observation to follow. Halle Tran MD [facility] # [id number]
[2017-09-14 12:22] LABS: BASO % 0.4 % (0.0-2.0); EOS % 0.2 % (0.0-4.0); HEMOGLOBIN 9.5 g/dL (12.0-18.0); LYMPH # 0.5 K/uL (1.0-4.3); LYMPH % 7.4 % (20.0-40.0); MEAN CELL VOLUME 91.9 fL (80.0-94.0); MEAN CORPUSCULAR HEMOGLOBIN 29.2 pg (27.0-31.0); MEAN CORPUSCULAR HGB CONC 31.8 g/dL (33.0-37.0); MEAN PLATELET VOLUME 10.5 fL (7.2-11.7); MONO # 0.6 K/uL (0.0-0.8); MONO % 8.6 % (0.0-10.0); NEUT # 5.6 K/uL (1.8-7.0); NEUT % 83.4 % (50.0-75.0); NRBC % 0.1 % (0.0-2.0); RBC 3.26 Mil/uL (4.40-5.90); WHITE BLOOD COUNT 6.8 K/uL (4.8-10.8)
[2017-09-14 12:31] LABS: PLATELET COUNT 124 K/uL (130-400)
[2017-09-14 12:50] LABS: ALB/GLOB RATIO 1.2 (1.0-2.1); ALBUMIN 2.8 g/dL (3.5-5.0); CALCIUM 7.3 mg/dl (8.6-10.4)
[2017-09-14 13:02] LABS: ANISOCYTOSIS SLIGHT; HYPOCHROMIC SLIGHT; LYMPHOCYTE 5 % (20-40); MONOCYTE 8 % (0-10); NEUTROPHIL 87 % (50-75); PLATELET ESTIMATE SLIGHTLY DECREASED (NORMAL); POIKILOCYTOSIS SLIGHT; TOTAL CELLS COUNTED 100
[2017-09-14 13:03] LABS: OVALOCYTES SLIGHT; TEARDROP CELLS SLIGHT
[2017-09-14 13:04] LABS: BURR CELLS SLIGHT; GIANT PLATELETS PRESENT; LARGE PLATELETS PRESENT; MICROCYTOSIS SLIGHT
[2017-09-14] MEDS: BICALUTAMIDE 50 MG PO SCH (18:35)
--- NOTE | 2017-09-14 19:14 | CP.PCM.PN ---
Subjective - Date & Time of Evaluation Date of Evaluation: 09/14/17 Time of Evaluation: 09:00 - Subjective Subjective: clinically same Objective - Vital Signs/Intake and Output Vital Signs (last 24 hours): Temp Pulse Resp BP Pulse Ox 98.5 F 67 20 118/70 99 09/14/17 16:15 09/14/17 16:15 09/14/17 16:15 09/14/17 16:15 09/14/17 16:15 Intake and Output: 09/14/17 09/15/17 18:59 06:59 Intake Total 500 Output Total 250 Balance 250 - Medications Medications: Current Medications Amiodarone HCl (Cordarone) 200 mg PO DAILY [facility] Last Admin: 09/14/17 10:12 Dose: 200 mg Dicyclomine HCl (Bentyl) 20 mg PO TID [facility] Last Admin: 09/14/17 18:32 Dose: 20 mg Enoxaparin Sodium (Lovenox) 40 mg SC DAILY [facility] Famotidine (Pepcid) 40 mg PO DAILY [facility] Last Admin: 09/14/17 10:12 Dose: 40 mg Home Med (Bicalutamide [Casodex]) 50 mg PO DAILY [facility] Last Admin: 09/14/17 18:35 Dose: 50 mg Rosuvastatin Calcium (Crestor) 5 mg PO HS [facility] Last Admin: 09/13/17 21:47 Dose: 5 mg Tamsulosin HCl (Flomax) 0.4 mg PO DAILY [facility] Last Admin: 09/14/17 10:12 Dose: 0.4 mg - Labs Labs: 09/14/17 12:08 09/14/17 12:08 PT 15.1 SECONDS (9.7-12.2) H 09/13/17 13:52 INR 1.3 09/13/17 13:52 APTT 33 SECONDS (21-34) 09/13/17 13:52
--- NOTE | 2017-09-15 07:10 | CARD ---
APPROVED REPORT EKG Measurement Heart [id number] <Conclusion> Sinus rhythm with sinus arrhythmia with 1st degree AV block Right superior axis deviation Low voltage QRS Possible Inferior infarct, age undetermined Cannot rule out Anteroseptal infarct, age undetermined Prolonged QT Abnormal ECG
[2017-09-15] MEDS: BICALUTAMIDE 50 MG PO SCH (09:24)
--- NOTE | 2017-09-15 13:31 | PN ---
DATE: LOCATION: [facility] bed B. SUBJECTIVE: This is a 77-year-old male, seen and examined in rounds without any significant clinical changes, but with period of mild abdominal pain. No reported active bleeding with less oral intake. The entire chart is reviewed including but not limited to the most recent lab and radiology study results, current and the previous medication list, current and the previous medical events. Today's labs still pending; however, yesterday's labs showed drop of hemoglobin to 9.5, hematocrit 29.9 with thrombocytopenia of 124 with low calcium 7.4 and CEA level of 6, elevated. PHYSICAL EXAMINATION: GENERAL: A 77-year-old male. VITAL SIGNS: Afebrile with pulse of 64, respiratory rate 20 to 22, blood pressure 128/78. HEENT: Showed mildly pale dry oral mucoid membrane. Nonicteric sclerae. LUNGS: Few scattered crepitation. Decreased air entry at bases. HEART: Positive S1 and S2. ABDOMEN: Soft with slight distention with small amount of ascites. No mass or organomegaly. No rebound tenderness or guarding, but with slight generalized tenderness. EXTREMITIES: Without significant edema, clubbing or cyanosis. NEUROLOGIC: No reported new neurological deficits, sensory or motor. IMPRESSION: 1. Ascites, to rule out refractory ascites, with possible malignant seeding to the peritoneal cavity. 2. 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 3. Known history of hypertension, coronary artery disease, congestive heart failure, cholelithiasis with peptic ulcer disease. 4. Anemia secondary to above. Elevated CEA level with the possibility of colon cancer was raised. SUGGESTION: 1. Agree with your plan. 2. Follow up on the ascitic fluid results, still pending. 3. No need for aggressive GI workup again. Still the patient may need colonoscopy, it is not clear when his last colonoscopy was done and the patient is still unstable clinically for any aggressive GI workup. Halle Tran MD
--- NOTE | 2017-09-15 15:46 | CP.PCM.PN ---
Subjective - Date & Time of Evaluation Date of Evaluation: 09/15/17 Time of Evaluation: 08:20 - Subjective Subjective: clinically same Objective - Vital Signs/Intake and Output Vital Signs (last 24 hours): Temp Pulse Resp BP Pulse Ox 98.0 F 67 20 120/75 98 09/15/17 08:34 09/15/17 08:34 09/15/17 08:34 09/15/17 08:34 09/15/17 08:34 Intake and Output: 09/15/17 09/15/17 06:59 18:59 Intake Total 750 300 Output Total 600 600 Balance 150 -300 - Medications Medications: Current Medications Amiodarone HCl (Cordarone) 200 mg PO DAILY [facility] Last Admin: 09/15/17 09:29 Dose: 200 mg Dicyclomine HCl (Bentyl) 20 mg PO TID [facility] Last Admin: 09/15/17 13:50 Dose: 20 mg Enoxaparin Sodium (Lovenox) 40 mg SC DAILY [facility] Famotidine (Pepcid) 40 mg PO DAILY [facility] Last Admin: 09/15/17 09:29 Dose: 40 mg Home Med (Bicalutamide [Casodex]) 50 mg PO DAILY [facility] Last Admin: 09/15/17 09:24 Dose: 50 mg Rosuvastatin Calcium (Crestor) 5 mg PO HS [facility] Last Admin: 09/14/17 21:56 Dose: 5 mg Tamsulosin HCl (Flomax) 0.4 mg PO DAILY [facility] Last Admin: 09/15/17 09:29 Dose: 0.4 mg - Labs Labs: 09/14/17 12:08 09/14/17 12:08 PT 15.1 SECONDS (9.7-12.2) H 09/13/17 13:52 INR 1.3 09/13/17 13:52 APTT 33 SECONDS (21-34) 09/13/17 13:52 - Constitutional Appears: Well - Head Exam Head Exam: ATRAUMATIC, NORMAL INSPECTION, NORMOCEPHALIC - Eye Exam Eye Exam: EOMI, Normal appearance, PERRL Pupil Exam: NORMAL ACCOMODATION, PERRL - ENT Exam ENT Exam: Mucous Membranes Moist, Normal Exam - Neck Exam Neck Exam: Full ROM, Normal Inspection. absent: Lymphadenopathy - Respiratory Exam Respiratory Exam: Decreased Breath Sounds - Cardiovascular Exam Cardiovascular Exam: REGULAR RHYTHM, +S1, +S2 - GI/Abdominal Exam GI & Abdominal Exam: Soft, Diminished Bowel Sounds - Rectal Exam Rectal Exam: Deferred
[2017-09-16 08:48] LABS: HEMOGLOBIN 10.5 g/dL (12.0-18.0); MEAN CELL VOLUME 91.7 fL (80.0-94.0); MEAN CORPUSCULAR HEMOGLOBIN 29.5 pg (27.0-31.0); MEAN CORPUSCULAR HGB CONC 32.2 g/dL (33.0-37.0); MEAN PLATELET VOLUME 11.3 fL (7.2-11.7); RBC 3.55 Mil/uL (4.40-5.90); RED CELL DISTRIBUTION WIDTH 21.5 % (11.5-14.5); WHITE BLOOD COUNT 6.7 K/uL (4.8-10.8)
[2017-09-16 09:25] LABS: ALB/GLOB RATIO 1.1 (1.0-2.1); ALBUMIN 2.8 g/dL (3.5-5.0); ALT/SGPT 19 U/L (21-72); AMYLASE 94 U/L (30-110); AST/SGOT 32 U/L (17-59); BLOOD UREA NITROGEN 18 mg/dL (9-20); CALCIUM 7.5 mg/dl (8.6-10.4); GFR AFRICAN-AMERICAN > 60; GFR NON-AFRICAN AMERICAN 54; LIPASE 89 U/L (23-300)
[2017-09-16] MEDS: BICALUTAMIDE 50 MG PO SCH (10:19)
--- NOTE | 2017-09-16 12:59 | PN ---
DATE: LOCATION: [facility], bed B. SUBJECTIVE: This is a 77-year-old male seen and examined in rounds today without significant clinical changes, appeared to be awake, alert, oriented, with much less reported abdominal pain. No reported active bleeding or significant complaint of chest pain or shortness of breath. Patient still has intermittent period of mild abdominal pain and distention. The entire chart is reviewed including but not limited to most recent lab and radiology study results, current and previous medication list, current and previous medical events. Case was discussed with the staff. Today's lab showed hemoglobin of 10.5, hematocrit 32.5, with thrombocytopenia of 118. Patient still has mildly elevated PT and low calcium as well as increased alkaline phosphatase, with low albumin and low total protein. His CEA level is 6. Patient will need colonoscopy only when he is more stable clinically, is still awaiting for the official report of the ascitic fluid results. PHYSICAL EXAMINATION GENERAL: A 77-year-old male. VITAL SIGNS: Afebrile with pulse of 70, respiratory rate 18 to 20, with blood pressure 128/74. HEENT: Show pale, dry oral mucous membrane. Nonicteric sclerae. LUNGS: Scattered mild crepitations. Decreased air entry at bases. HEART: Positive S1 and S2. ABDOMEN: Soft with mild generalized tenderness. No mass or organomegaly. No rebound tenderness. EXTREMITIES: Lower extremities with mild edematous changes. No clubbing or cyanosis. RECTAL: The patient refused. NEUROLOGIC: No reported new neurological deficits, sensory or motor. IMPRESSION: 1. Ascites, to rule out possible refractory malignant ascites with possible peritoneal carcinomatous sheathing. 2. Known history of prostatic cancer with metastatic lesion to the bone. 3. Known history of hypertension, congestive heart failure, coronary artery disease and peptic ulcer disease with cholelithiasis. 4. Anemia, most likely secondary to above. 5. Elevated CEA level. The possibility of lower gastrointestinal tract malignant lesion to be ruled in or out. PLAN: 1. Continue current management. 2. Follow up on the ascitic fluid results. 3. Oncology/Hematology consult. 4. Colonoscopy to be scheduled when the patient is more stable clinically. Further recommendation to follow. Halle Tran MD [facility] # [id number]
--- NOTE | 2017-09-16 15:35 | CP.PCM.PN ---
Subjective - Date & Time of Evaluation Date of Evaluation: 09/16/17 Time of Evaluation: 08:20 - Subjective Subjective: clinically same Objective - Vital Signs/Intake and Output Vital Signs (last 24 hours): Temp Pulse Resp BP Pulse Ox 97.8 F 67 20 125/77 98 09/16/17 07:39 09/16/17 07:39 09/16/17 07:39 09/16/17 07:39 09/16/17 07:39 Intake and Output: 09/16/17 09/16/17 06:59 18:59 Intake Total 500 600 Output Total 500 300 Balance 0 300 - Medications Medications: Current Medications Amiodarone HCl (Cordarone) 200 mg PO DAILY [facility] Last Admin: 09/16/17 10:18 Dose: 200 mg Dicyclomine HCl (Bentyl) 20 mg PO TID [facility] Last Admin: 09/16/17 13:46 Dose: 20 mg Enoxaparin Sodium (Lovenox) 40 mg SC DAILY [facility] Famotidine (Pepcid) 40 mg PO DAILY [facility] Last Admin: 09/16/17 10:19 Dose: 40 mg Home Med (Bicalutamide [Casodex]) 50 mg PO DAILY [facility] Last Admin: 09/16/17 10:19 Dose: 50 mg Rosuvastatin Calcium (Crestor) 5 mg PO HS [facility] Last Admin: 09/15/17 21:12 Dose: 5 mg Tamsulosin HCl (Flomax) 0.4 mg PO DAILY [facility] Last Admin: 09/16/17 10:18 Dose: 0.4 mg - Labs Labs: 09/16/17 08:38 09/16/17 08:38 PT 15.1 SECONDS (9.7-12.2) H 09/13/17 13:52 INR 1.3 09/13/17 13:52 APTT 33 SECONDS (21-34) 09/13/17 13:52
[2017-09-17] MEDS: BICALUTAMIDE 50 MG PO SCH (09:50)
--- NOTE | 2017-09-17 20:15 | CP.PCM.PN ---
Subjective - Date & Time of Evaluation Date of Evaluation: 09/17/17 Time of Evaluation: 08:40 - Subjective Subjective: clinically same Objective - Vital Signs/Intake and Output Vital Signs (last 24 hours): Temp Pulse Resp BP Pulse Ox 97.5 F L 63 20 130/85 100 09/17/17 17:00 09/17/17 17:00 09/17/17 17:00 09/17/17 17:00 09/17/17 17:00 Intake and Output: 09/17/17 09/18/17 18:59 06:59 Intake Total 600 Balance 600 - Medications Medications: Current Medications Amiodarone HCl (Cordarone) 200 mg PO DAILY [facility] Last Admin: 09/17/17 09:50 Dose: 200 mg Dicyclomine HCl (Bentyl) 20 mg PO TID [facility] Last Admin: 09/17/17 17:27 Dose: 20 mg Enoxaparin Sodium (Lovenox) 40 mg SC DAILY [facility] Famotidine (Pepcid) 40 mg PO DAILY [facility] Last Admin: 09/17/17 09:50 Dose: 40 mg Home Med (Bicalutamide [Casodex]) 50 mg PO DAILY [facility] Last Admin: 09/17/17 09:50 Dose: 50 mg Rosuvastatin Calcium (Crestor) 5 mg PO HS [facility] Last Admin: 09/16/17 22:00 Dose: 5 mg Tamsulosin HCl (Flomax) 0.4 mg PO DAILY [facility] Last Admin: 09/17/17 09:54 Dose: 0.4 mg - Labs Labs: 09/16/17 08:38 09/16/17 08:38 PT 15.1 SECONDS (9.7-12.2) H 09/13/17 13:52 INR 1.3 09/13/17 13:52 APTT 33 SECONDS (21-34) 09/13/17 13:52
--- NOTE | 2017-09-17 21:13 | PN ---
DATE: LOCATION: Room 361, bed B. SUBJECTIVE: This is a 77-year-old male seen and examined in rounds today without significant clinical changes, appeared to be more awake, alert, and oriented. Denied any chest pain, significant shortness of breath, but mild abdominal discomfort. The entire chart is reviewed including but not limited to most recent lab and radiology study results, current and the previous medication list, current and the previous medical events, and today's lab results still pending, however, as per yesterday's lab, patient still has low hemoglobin of 10.5, hematocrit 32.5 with thrombocytopenia of 118, with low sodium, low calcium, and elevated alkaline phosphatase 465, with low albumin 2.8 and low total protein 5.3. It has to be mentioned that the patient still has some discomfort at the site of the recently done abdominal paracentesis. PHYSICAL EXAMINATION: GENERAL: A 77-year-old male, seen in rounds with the staff. VITAL SIGNS: Afebrile with pulse of 66, respiratory rate 20 to 22, blood pressure 124/80. HEENT: Showed pale, dry oral mucous membrane. Nonicteric sclerae. LUNGS: A few scattered crepitation. Decreased air entry at bases. HEART: Positive S1 and S2. ABDOMEN: Soft with mild distention and mild amount of ascites. No mass or organomegaly. No rebound tenderness or guarding, but generalized mild tenderness. RECTAL: The patient refused. EXTREMITIES: Without significant clubbing or cyanosis, but mild lower extremity edematous changes. IMPRESSION: 1. Ascites, rule out possible refractory malignant ascites with peritoneal seeding, result of the ascitic fluid is still pending. 2. 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 3. Anemia, secondary to above. 4. Elevated CEA level. The possibility of colon cancer was raised. 5. Known history of, but not limited to hypertension, peptic ulcer disease, coronary artery disease, congestive heart failure. 6. Cholelithiasis per radiology study results. SUGGESTIONS: 1. Continue current management. 2. Follow up on ascitic fluid results. 3. The patient may need a repeat abdominal paracentesis for the . 4. Due to the patient's clinical status, colonoscopy to be kept in mind, only when the patient is more stable clinically. Otherwise, close observation to follow and barium enema, patient refused it for now. Halle Tran MD [facility] # [id number]
[2017-09-18] MEDS: BICALUTAMIDE 50 MG PO SCH (11:24)
--- NOTE | 2017-09-18 15:28 | CP.PCM.PN ---
Subjective - Date & Time of Evaluation Date of Evaluation: 09/18/17 Time of Evaluation: 15:37 - Subjective Subjective: PT SEEN WITH DR. Kaleb GONZALEZ DURING ROUNDS; CLEARED FOR D/C HOME TODAY. I ALSO SPOKE WITH DR. VAZQUEZ AND OK PER HIM TO D/C PT HOME TODAY. PT HAS ALL RX AT HOME. NO NEW RX. D/C INFORMATION DISCUSSED WITH PT. HE IS TO F/U WITH DR. Kaleb GONZALEZ IN THE OFFICE THIS MONDAY--APPT TIME PENDING. CM AWARE OF D/C HOME TODAY; TRANSPORTATION HOME IF NEEDED. NO FURTHER ORDERS. Objective - Vital Signs/Intake and Output Vital Signs (last 24 hours): Temp Pulse Resp BP Pulse Ox 98.1 F 62 20 117/72 98 09/18/17 08:28 09/18/17 08:28 09/18/17 08:28 09/18/17 08:28 09/18/17 08:28 Intake and Output: 09/18/17 09/18/17 06:59 18:59 Intake Total 900 Output Total 650 Balance 250 - Medications Medications: Current Medications Amiodarone HCl (Cordarone) 200 mg PO DAILY [facility] Last Admin: 09/18/17 11:12 Dose: 200 mg Dicyclomine HCl (Bentyl) 20 mg PO TID [facility] Last Admin: 09/18/17 13:41 Dose: 20 mg Enoxaparin Sodium (Lovenox) 40 mg SC DAILY [facility] Famotidine (Pepcid) 40 mg PO DAILY [facility] Home Med (Bicalutamide [Casodex]) 50 mg PO DAILY [facility] Last Admin: 09/18/17 11:24 Dose: 50 mg Rosuvastatin Calcium (Crestor) 5 mg PO HS [facility] Last Admin: 09/17/17 21:19 Dose: 5 mg Tamsulosin HCl (Flomax) 0.4 mg PO DAILY [facility] Last Admin: 09/18/17 11:12 Dose: 0.4 mg - Labs Labs: 09/16/17 08:38 09/16/17 08:38 PT 15.1 SECONDS (9.7-12.2) H 09/13/17 13:52 INR 1.3 09/13/17 13:52 APTT 33 SECONDS (21-34) 09/13/17 13:52
--- NOTE | 2017-09-18 15:28 | PCM.HF ---
Heart Failure Core Measure - Heart Failure Ejection Fraction: Less Than 40 % WINTER Inhibitor Prescribed: No Contraindication/Reason for not providing: D/C BY SIGNAL CIRCUIT DESIGNER OUTPATIENT Beta-Mariana Prescribed: None Contraindication/Reason for not providing: D/C BY SIGNAL CIRCUIT DESIGNER OUTPATIENT 2/2 BRADYCARDIA Angiotensin II Receptor Mariana Prescribed: No Contraindication/Reason for not providing: D/C BY SIGNAL CIRCUIT DESIGNER OUTPATIENT; ON AMIO AND CASODEX AnticoagulationTherapy for Atrial Fibrillation/Atrialflutter: No Contraindication/Reason for not providing: NO AFIB Aldosterone Antagonist Prescribed: No Contraindication/Reason for not providing: D/C BY SIGNAL CIRCUIT DESIGNER OUTPATIENT; ON AMIO AND CASODEX Hydralazine Nitrate Prescribed: No Contraindication/Reason for not providing: D/C BY SIGNAL CIRCUIT DESIGNER OUTPATIENT; ON AMIO AND CASODEX Implantable Cardioverter Defibrillator Therapy: No Contraindication/Reason for not providing: PER CARDIO: PT HAS PROSTATE CA, ONLY [facility] Cardiac Resynchronization Therapy Prescribed: No Contraindication/Reason for not providing: PER CARDIO: PT HAS PROSTATE CA, ONLY [facility] - Follow up Will be discharged to: Home Follow Up Date (must be within 7 days from discharge): 09/20/17 Follow Up Time: 14:00
[2017-09-18 16:21] VITALS: BP 122/82; PULSE 63; TEMP 97.3; O2SAT 96
--- NOTE | 2017-09-18 19:51 | PN ---
DATE: LOCATION: [facility], bed B. SUBJECTIVE: This is a 77-year-old male seen and examined in rounds early today without significant clinical changes, appeared to be more awake and alert, with much less abdominal pain, tolerating oral intake well for which the case was discussed with Dr. Rawls as well as the staff on the floor and the patient to be discharged home today, to be followed up as an outpatient in my office. The entire chart is reviewed including, but not limited to most recent lab and radiology study results, current and previous medication list, current and previous medical events and the latest blood workup showed hemoglobin 10.5, elevated than before with increased hematocrit to 32.5 but thrombocytopenia 118 with low sodium 131, low calcium 7.5, with low albumin 2.8, low total protein 5.6, with CEA level, the latest was 6.0, elevated. The patient has no complaint of chest pain, palpitation or actual shortness of breath. PHYSICAL EXAMINATION GENERAL: A 77-year-old male. VITAL SIGNS: Afebrile with pulse of 66, respiratory rate 20-22, blood pressure 124/80. HEENT: Showed mildly pale dry mucoid membrane. Nonicteric sclerae. LUNGS: Few scattered mild crepitation. Decreased air entry at bases. HEART: Positive S1, S2. ABDOMEN: Soft with mild distention with less amount of ascites reported without any mass or organomegaly. No rebound tenderness or guarding. RECTAL: The patient refused. EXTREMITIES: Without significant clubbing, cyanosis or edema. NEUROLOGIC: No reported new neurological deficits, sensory or motor. IMPRESSION: 1. Ascites, with status post abdominal paracentesis, ascitic fluid results still pending. 2. Anemia, most likely secondary to chronic disease, no clear evidence of active bleeding so far. 3. Elevated CEA level, to rule out occult lower gastrointestinal malignancy. 4. Known history of prostatic cancer with metastatic lesion to the bone. 5. Known history of peptic ulcer disease, hypertension, coronary artery disease with congestive heart failure. 6. Cholelithiasis per radiology study results without clear evidence, clinically of acute cholecystitis. SUGGESTION: 1. Agree with your plan. 2. The patient is to be discharged home and to be followed up as an outpatient for potential colonoscopy when he is more stable clinically. 3. Further recommendation to follow. Case discussed with admitting MD. Halle Tran MD [facility] # [id number]
== END 2017-09-18 18:14 | disposition home or self-care (01) | DRG 375 ==
LOC: C.ER 19:27 → C.9E 23:42 → C.3T 09-13 00:18
PROVIDERS: ADMIT Internal Medicine Nephrology; ATTEND Internal Medicine Nephrology
PROC: 0W9G3ZZ Drainage of Peritoneal Cavity, Percutaneous Approach (ICD-10-PCS; principal; 2017-09-13)
PROC: BW40ZZZ Ultrasonography of Abdomen (ICD-10-PCS; 2017-09-13)
DX: C78.6 Secondary malignant neoplasm of retroperitoneum and peritoneum (principal); R18.0 Malignant ascites; C79.51 Secondary malignant neoplasm of bone; I11.0 Hypertensive heart disease with heart failure; D69.6 Thrombocytopenia, unspecified; I50.9 Heart failure, unspecified; D63.8 Anemia in other chronic diseases classified elsewhere; I25.10 Atherosclerotic heart disease of native coronary artery without angina pectoris; R79.1 Abnormal coagulation profile; Z85.46 Personal history of malignant neoplasm of prostate; Z87.11 Personal history of peptic ulcer disease; Z87.891 Personal history of nicotine dependence

== ENCOUNTER 2017-11-04 15:22 | Observation (INO) | payer BC, MEDICARE ==
[2017-11-04 15:23] VITALS: BMI 23.7
[2017-11-04 16:38] LABS: BASO % 0.3 % (0.0-2.0); EOS % 0.1 % (0.0-4.0); HEMOGLOBIN 9.8 g/dL (12.0-18.0); LYMPH # 0.4 K/uL (1.0-4.3); LYMPH % 6.7 % (20.0-40.0); MEAN CELL VOLUME 93.2 fL (80.0-94.0); MEAN CORPUSCULAR HEMOGLOBIN 29.5 pg (27.0-31.0); MEAN CORPUSCULAR HGB CONC 31.7 g/dL (33.0-37.0); MONO # 0.4 K/uL (0.0-0.8); MONO % 6.7 % (0.0-10.0); NEUT % 86.2 % (50.0-75.0); NRBC % 0.1 % (0.0-2.0); PLATELET COUNT 145 K/uL (130-400); RBC 3.32 Mil/uL (4.40-5.90); RED CELL DISTRIBUTION WIDTH 19.5 % (11.5-14.5); WHITE BLOOD COUNT 5.8 K/uL (4.8-10.8)
[2017-11-04 16:50] LABS: ALB/GLOB RATIO 1.2 (1.0-2.1); ALBUMIN 3.4 g/dL (3.5-5.0); ALT/SGPT 21 U/L (21-72); AST/SGOT 57 U/L (17-59); BLOOD UREA NITROGEN 21 mg/dL (9-20); CALCIUM 8.3 mg/dl (8.6-10.4); GFR AFRICAN-AMERICAN > 60; GFR NON-AFRICAN AMERICAN 59; LIPASE 160 U/L (23-300)
[2017-11-04 16:58] LABS: INR 1.1; PROTHROMBIN TIME 12.7 SECONDS (9.7-12.2)
--- NOTE | 2017-11-04 17:04 | C.PDOC ---
History Of Present Illness 77 y/o male presents to ED with complaints of worsening abdominal distention. Patient has hx of pancreatic CA and he is currently in therapy for it. Denies fever, abdominal pain, or vomiting. Patient is eating normally. Time Seen by Provider: 11/04/17 16:20 Chief Complaint (Nursing): Abdominal Pain History Per: Patient History/Exam Limitations: no limitations Onset/Duration Of Symptoms: Hrs Current Symptoms Are (Timing): Still Present Radiation Of Pain To:: None Quality Of Discomfort: Unable To Describe Associated Symptoms: denies: Fever, Chills, Nausea, Vomiting, Diarrhea, Loss Of Appetite, Chest Pain Exacerbating Factors: None Alleviating Factors: None Recent travel outside of the [place]: No Past Medical History Reviewed: Historical Data, Nursing Documentation, Vital Signs Vital Signs: Last Vital Signs Temp 97.5 F L 11/05/17 00:00 Pulse 59 L 11/05/17 00:00 Resp 20 11/05/17 00:00 BP 131/78 11/05/17 00:00 Pulse Ox 97 11/05/17 00:00 - Medical History PMH: Arthritis (KNEE), CAD, CHF, Gastritis, Gall Bladder Disease, HTN, Malignancy (Prostate) - [employer] Procedures DRAINAGE OF PERITONEAL CAVITY, PERCUTANEOUS APPROACH (09/12/17) DRAINAGE OF PERITONEAL CAVITY, PERCUTANEOUS APPROACH, DIAGN (02/12/17) ULTRASONOGRAPHY OF ABDOMEN (09/12/17) Family History: States: Unknown Family Hx - Social History Hx Tobacco Use: No Hx Alcohol Use: No Hx Substance Use: No - Immunization History Hx Tetanus Toxoid Vaccination: No Hx Influenza Vaccination: Yes Hx Pneumococcal Vaccination: Yes Review Of Systems Constitutional: Negative for: Fever, Chills Cardiovascular: Negative for: Chest Pain Respiratory: Negative for: Shortness of Breath Gastrointestinal: Positive for: Other (Abdominal distention). Negative for: Nausea, Vomiting, Abdominal Pain, Diarrhea Neurological: Negative for: Weakness, Numbness Physical Exam - Physical Exam Appears: Well, Non-toxic Skin: Normal Color, Warm, Dry Head: Atraumatic, Normacephalic Eye(s): bilateral: Normal Inspection, Other (not icteric) Oral Mucosa: Moist Neck: Supple Chest: Symmetrical, No Tenderness Cardiovascular: Rhythm Regular Respiratory: Normal Breath Sounds, No Decreased Breath Sounds, No Rales, No Rhonchi, No Wheezing Gastrointestinal/Abdominal: Soft, No Tenderness, Distention, Hernia (Umbilical) , Other (Abdomen has fluid wave) Extremity: No Tenderness, No Pedal Edema, No Deformity, No Swelling Extremity: Bilateral: Normal Color And Temperature, Normal ROM Neurological/Psych: Oriented x3, Normal Speech, Normal Cognition ED Course And Treatment - Laboratory Results Result Diagrams: 11/04/17 16:36 11/04/17 16:36 O2 Sat by Pulse Oximetry: 98 (RA) Pulse Ox Interpretation: Normal Progress Note: Spoke to Dr. Thrasher which admits for and patient will be admitted to the medical floor. Medical Decision Making Medical Decision Making: Ordered BBK, and blood work. Disposition - Disposition Disposition: HOSPITALIZED Disposition Time: 17:00 Condition: GOOD - Clinical Impression Clinical Impression: Abdominal distension, Ascites - Scribe Statement The provider has reviewed the documentation as recorded by the Salomon Marinelli All medical record entries made by the Gastonibfederico were at my direction and personally dictated by me. I have reviewed the chart and agree that the record accurately reflects my personal performance of the history, physical exam, medical decision making, and the department course for this patient. I have also personally directed, reviewed, and agree with the discharge instructions and disposition.
[2017-11-04 17:29] LABS: LYMPHOCYTE 5 % (20-40); MONOCYTE 2 % (0-10); NEUTROPHIL 93 % (50-75); PLATELET ESTIMATE DECREASED (NORMAL); TOTAL CELLS COUNTED 100
[2017-11-04 17:30] LABS: ANISOCYTOSIS SLIGHT; BURR CELLS SLIGHT; HYPOCHROMIC SLIGHT; LARGE PLATELETS PRESENT; OVALOCYTES SLIGHT
[2017-11-04 22:38] VITALS: RESP 20
--- NOTE | 2017-11-04 23:18 | CP.PCM.HP ---
History of Present Illness - History of Present Illness History of Present Illness: CC: abdominal distention HPI: 77 y/o AA male with h/o prostrate cancer with bony metastasis, on chemotherapy with presents to ED with complaints of worsening abdominal distention. Patient has hx of pancreatic CA and he is currently in therapy for it. Denies fever, abdominal pain, or vomiting. Patient is eating normally.pt c/o shortness of breath but denies any chest pain Present on Admission - Present on Admission Any Indicators Present on Admission: Yes Review of Systems - Review of Systems Systems not reviewed;Unavailable: Acuity of Condition Review of Systems: mild distress - Constitutional Constitutional: Fatigue, Lethargy - EENT Eyes: absent: As Per HPI, Blind Spots, Blurred Vision, Change in Vision, Decreased Night Vision, Diplopia, Discharge, Dry Eye, Exophthalmos, Floaters, Irritation, Itchy Eyes, Loss of Peripheral Vision, Pain, Photophobia, Requires Corrective Lenses, Sees Flashes, Spots in Vision, Tunnel Vision, Other Visual Disturbances, Loss of Vision, Other Nose/Mouth/Throat: absent: As Per HPI, Epistaxis, Nasal Congestion, Nasal Discharge, Nasal Obstruction, Nasal Trauma, Nose Pain, Post Nasal Drip, Sinus Pain, Sinus Pressure, Bleeding Gums, Change in Voice, Dental Pain, Dry Mouth, Dysphagia, Halitosis, Hoarsness, Lip Swelling, Mouth Lesions, Mouth Pain, Odynophagia, Sore Throat, Throat Swelling, Tongue Swelling, Facial Pain, Neck Pain, Neck Mass, Other - Cardiovascular Cardiovascular: Dyspnea - Respiratory Respiratory: Dyspnea - Gastrointestinal Gastrointestinal: Abdominal Pain, Bloating - Genitourinary Genitourinary: absent: As Per HPI, Change in Urinary Stream, Difficulty Urinating, Dysuria, Flank Pain, Hematuria, Pyuria, Nocturia, Urinary Incontinence, Urinary Frequency, Urinary Hesitance, Urinary Urgency, Voiding Freq/Small Amts, Freq UTI, Hx Renal/Bladder Calculi, Hx /Renal Surgery, Bladder Distension, Other Past Patient History - Infectious Disease Hx of Infectious Diseases: None - Past Medical History & Family History Past Medical History?: Yes - Past Social History Smoking Status: Former Smoker - CARDIAC Hx Congestive Heart Failure: Yes Hx Hypertension: Yes - PULMONARY Hx Respiratory Disorders: No - NEUROLOGICAL Hx Neurological Disorder: No - HEENT Hx HEENT Problems: No - RENAL Hx Chronic Kidney Disease: No - ENDOCRINE/METABOLIC Hx Endocrine Disorders: No - HEMATOLOGICAL/ONCOLOGICAL Hx Blood Disorders: Yes Hx Cancer: Yes (PROSTATE) Hx Chemotherapy: Yes - INTEGUMENTARY Hx Dermatological Problems: No - MUSCULOSKELETAL/RHEUMATOLOGICAL Hx Arthritis: Yes (KNEE) - GASTROINTESTINAL Hx Gall Bladder Disease: Yes Hx Gastritis: Yes - GENITOURINARY/GYNECOLOGICAL Hx Genitourinary Disorders: No - PSYCHIATRIC Hx Substance Use: No - SURGICAL HISTORY Hx Surgeries: Yes Other/Comment: hernia repair 03/20/17 - ANESTHESIA Hx Anesthesia: Yes Hx Anesthesia Reactions: No Hx Malignant Hyperthermia: No Meds Allergies/Adverse Reactions: Allergies Allergy/AdvReac Type Severity Reaction Status Date / Time No Known Allergies Allergy Verified 06/15/17 09:39 Physical Exam - Constitutional Appears: No Acute Distress - Head Exam Head Exam: ATRAUMATIC, NORMAL INSPECTION, NORMOCEPHALIC - Eye Exam Eye Exam: EOMI, Normal appearance, PERRL Pupil Exam: NORMAL ACCOMODATION, PERRL - Respiratory Exam Respiratory Exam: Clear to Auscultation Bilateral, NORMAL BREATHING PATTERN - Cardiovascular Exam Cardiovascular Exam: REGULAR RHYTHM - GI/Abdominal Exam GI & Abdominal Exam: Distended, Tenderness - Rectal Exam Additional comments: nodular prostrate Results - Vital Signs Recent Vital Signs: Last Vital Signs Temp 97.6 F 11/04/17 18:10 Pulse 65 11/04/17 18:10 Resp 20 11/04/17 18:10 BP 150/86 11/04/17 18:10 Pulse Ox 100 11/04/17 18:10 - Labs Result Diagrams: 11/04/17 16:36 11/04/17 16:36 Labs: Laboratory Results - last 24 hr 11/04/17 11/04/17 11/04/17 16:36 16:36 16:36 WBC 5.8 RBC 3.32 L Hgb 9.8 L Hct 30.9 L MCV 93.2 MCH 29.5 MCHC 31.7 L RDW 19.5 H Plt Count 145 MPV 9.0 Neut % (Auto) 86.2 H Lymph % (Auto) 6.7 L Flagler % (Auto) 6.7 Eos % (Auto) 0.1 Baso % (Auto) 0.3 Neut # (Auto) 5.0 Lymph # (Auto) 0.4 L Flagler # (Auto) 0.4 Eos # (Auto) 0.0 Baso # (Auto) 0.0 Neutrophils % (Manual) 93 H Lymphocytes % (Manual) 5 L Monocytes % (Manual) 2 Platelet Estimate Decreased L Large Platelets Present Hypochromasia (manual) Slight Anisocytosis (manual) Slight Macrocytosis (manual) Slight Ovalocytes Slight Keira Cells Slight PT 12.7 H INR 1.1 APTT 33 Sodium 137 Potassium 5.0 Chloride 105 Carbon Dioxide 25 Anion Gap 13 BUN 21 H Creatinine 1.2 Est GFR ( Amer) > 60 Est GFR (Non-Af Amer) 59 Random Glucose 88 Calcium 8.3 L Total Bilirubin 0.9 AST 57 ALT 21 Alkaline Phosphatase 452 H Total Protein 6.4 Albumin 3.4 L D Globulin 2.9 Albumin/Globulin Ratio 1.2 Lipase 160 Blood Type Antibody Screen 11/04/17 16:36 WBC RBC Hgb Hct MCV MCH MCHC RDW Plt Count MPV Neut % (Auto) Lymph % (Auto) Flagler % (Auto) Eos % (Auto) Baso % (Auto) Neut # (Auto) Lymph # (Auto) Flagler # (Auto) Eos # (Auto) Baso # (Auto) Neutrophils % (Manual) Lymphocytes % (Manual) Monocytes % (Manual) Platelet Estimate Large Platelets Hypochromasia (manual) Anisocytosis (manual) Macrocytosis (manual) Ovalocytes Keira Cells PT INR APTT Sodium Potassium Chloride Carbon Dioxide Anion Gap BUN Creatinine Est GFR ( Amer) Est GFR (Non-Af Amer) Random Glucose Calcium Total Bilirubin AST ALT Alkaline Phosphatase Total Protein Albumin Globulin Albumin/Globulin Ratio Lipase Blood Type A POSITIVE Antibody Screen Negative Assessment & Plan (1) Prostate CA Status: Acute (2) Abdominal distension Status: Acute (3) Ascites Status: Acute (4) Dyspnea Status: Acute
[2017-11-05] MEDS ORDERED: Phytonadione 10 mg/ml Inj (Adult) SC STA (08:15)
[2017-11-05] MEDS: CASODEX 50 MG PO SCH (10:39)
[2017-11-05] MEDS: Pantoprazole 40 mg EC Tab PO SCH (10:39)
[2017-11-05] MEDS: ZYTIGA 250 MG PO SCH (10:39)
[2017-11-05 13:07] LABS: HEPATITIS B SURFACE AG Negative (NEGATIVE)
[2017-11-05 13:13] LABS: HEPATITIS A IGM NEGATIVE (NEGATIVE); HEPATITIS B CORE AB NEGATIVE (NEGATIVE)
[2017-11-05 13:24] LABS: HEPATITIS C ANTIBODY NEGATIVE (NEGATIVE)
--- NOTE | 2017-11-05 23:13 | CP.PCM.PN ---
Subjective - Date & Time of Evaluation Date of Evaluation: 11/05/17 Time of Evaluation: 19:00 - Subjective Subjective: Pt seen and evaluated at bedside, for paracentesis,short of breath Objective - Vital Signs/Intake and Output Vital Signs (last 24 hours): Temp Pulse Resp BP Pulse Ox 97.3 F L 58 L 20 123/82 99 11/05/17 16:00 11/05/17 16:00 11/05/17 16:00 11/05/17 16:00 11/05/17 16:00 Intake and Output: 11/05/17 11/06/17 18:59 06:59 Intake Total 690 Balance 690 - Medications Medications: Current Medications Amiodarone HCl (Cordarone) 200 mg PO DAILY [facility] Last Admin: 11/05/17 10:39 Dose: 200 mg Dicyclomine HCl (Bentyl) 20 mg PO TID PRN PRN Reason: abdominal pain Furosemide (Lasix) 20 mg PO DAILY [facility] Last Admin: 11/05/17 10:39 Dose: 20 mg Heparin Sodium (Porcine) (Heparin) 5,000 units SC HS [facility] Last Admin: 11/05/17 21:23 Dose: 5,000 units Home Med (Patient's Own Medication) 4 tab PO DAILY [facility] Last Admin: 11/05/17 10:39 Dose: 4 tab Home Med (Patient's Own Medication) 1 tab PO DAILY [facility] Last Admin: 11/05/17 10:39 Dose: 1 tab Pantoprazole Sodium (Protonix Ec Tab) 40 mg PO DAILY [facility] Last Admin: 11/05/17 10:39 Dose: 40 mg Prednisone (Prednisone Tab) 5 mg PO BID [facility] Last Admin: 11/05/17 17:35 Dose: 5 mg Rosuvastatin Calcium (Crestor) 5 mg PO HS [facility] Last Admin: 11/05/17 21:21 Dose: 5 mg Spironolactone (Aldactone) 25 mg PO BID [facility] Last Admin: 11/05/17 17:35 Dose: 25 mg Tamsulosin HCl (Flomax) 0.4 mg PO DAILY [facility] Last Admin: 11/05/17 10:38 Dose: 0.4 mg - Labs Labs: 11/04/17 16:36 11/04/17 16:36 PT 12.7 SECONDS (9.7-12.2) H 11/04/17 16:36 INR 1.1 11/04/17 16:36 APTT 33 SECONDS (21-34) 11/04/17 16:36 - Constitutional Appears: No Acute Distress, Chronically Ill - Head Exam Head Exam: ATRAUMATIC, NORMAL INSPECTION, NORMOCEPHALIC - Eye Exam Eye Exam: EOMI, Normal appearance, PERRL Pupil Exam: NORMAL ACCOMODATION, PERRL - Respiratory Exam Respiratory Exam: Decreased Breath Sounds, Rhonchi - Cardiovascular Exam Cardiovascular Exam: REGULAR RHYTHM, +S1, +S2. 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
--- NOTE | 2017-11-06 05:03 | CON ---
DATE: 11/04/2017 LOCATION: 365, bed D. This is from Dr. Tran to Dr. Thrasher. I was called for GI consultation by the primary MD. The patient is seen and fully examined 11/04/2017 as requested by the admitting MD. The entire chart is reviewed including but not limited to the most recent lab and radiology study results, current and the previous medication list, current and the previous medical events, allergy to medication list, as well as all the available current and the previous medical records. Case discussed at length with the admitting staff on 11/04/2017 before and immediately after my GI consultation. HISTORY OF PRESENT ILLNESS: This is a 77-year-old male known case for me from previous admission, was admitted to the hospital through the emergency room with the main complaint of increased abdominal distention, abdominal pain, mild shortness of breath, postprandial discomfort, but no reported active bleeding. No reported chills or fever. Significant complaint of chest pain or palpitation. No reported hematemesis. PAST MEDICAL HISTORY: Including, but not limited to, 1. Hypertension. 2. Congestive heart failure. 3. Coronary artery disease. 4. Prostatic cancer. 5. Gallbladder disorder. 6. Osteoarthritis in both knees. The patient had more than one abdominal paracentesis. FAMILY HISTORY: Unknown. SOCIAL HISTORY: Denied any recent history of cigarette smoking or alcohol intake. CURRENT MEDICATIONS: Medication list reviewed and rest of medications unclear. LABORATORY DATA: After being admitted to the hospital, initial blood workup showed hemoglobin of 9.8, hematocrit 30.9, with mild increasing BUN of 21 but normal creatinine and negative prerenal azotemia. PHYSICAL EXAMINATION: GENERAL/VITAL SIGNS: A 77-year-old male appeared to be awake, alert, oriented, afebrile with pulse of 68, respiratory rate 20-22, blood pressure of 140/78. HEENT: Showed mildly pale, dry, oral mucoid membrane. Nonicteric sclerae. LUNGS: A few scattered crepitation. Breathing sounds are present bilaterally. HEART: Positive S1 and S2. ABDOMEN: Positive for large amount of ascites versus mild generalized tenderness. No mass or organomegaly could be appreciated and no rebound tenderness. RECTAL: The patient refused. EXTREMITIES: With lower extremities mild edematous changes. No clubbing or cyanosis. NEUROLOGIC: No reported new neurological deficits, sensory or motor. No reported new focal deficits. Peripheral pulses are present bilaterally but weak. IMPRESSION: 1. Refractory ascites that could be secondary to right-sided heart failure, nutritional hypoalbuminemia, and/or possible valvular insufficiency with possible portal hypertension. 2. Multiple past medical history including, but not limited to, hypertension, congestive heart failure, coronary artery disease with osteoarthritis. 3. Prostatic cancer with possible malignant ascites with peritoneal seeding, less likely. SUGGESTION: 1. Agree with your plan. 2. Cancer markers including CEA, CA 19-9, and alpha fetoprotein. 3. Blood lipid profile. 4. Guaiac on the stool daily x3 due to the patient's anemia which is most likely secondary to chronic disease; however, there is a possibility of lower versus upper GI blood loss to be ruled in or out. 5. Ultrasound-guided abdominal paracentesis by IR staff. 6. Complete analysis of the ascetic fluid including malignant cells, Gram stain, white blood cells. 7. Further recommendation to follow; however, if there is a second drop of hemoglobin and hematocrit, then endoscopic evaluation of the GI tract could be kept in mind, otherwise, close observation. 8. Lasix and Aldactone to be adjusted. 9. Further recommendation to follow. Hlale Tran MD
--- NOTE | 2017-11-06 07:56 | PN ---
DATE: 11/05/2017. LOCATION: [facility], bed B. SUBJECTIVE: A 77-year-old male seen for GI consultation, initially on 11/04/2017 as requested by the admitting MD, reexamined again today, appeared to be awake, alert and oriented with a complaint of abdominal distention and slight sore throat as well as nausea and mild dyspepsia. No chest pain or palpitation. No reported significant shortness of breath, but abdominal pain on and off. The entire chart is reviewed including but not limited to the most recent lab and radiology study results, current and the previous medication list, current and the previous medical events. Yesterday's lab showed hemoglobin of 9.8, hematocrit 30.9, with normal platelet count. PT 20.7, BUN 21, calcium 8.3, alkaline phosphatase 462, albumin 3.2. PHYSICAL EXAMINATION: GENERAL: A 77-year-old male seen and examined with the staff in the floor. VITAL SIGNS: Afebrile, with pulse of 62, respiratory rate 20 to 22, blood pressure 136/76. HEENT: Showed pale, dry oral mucous membranes. Nonicteric sclerae. LUNGS: Few scattered crepitation with decreased air entry at bases. HEART: Positive S1 and S2. ABDOMEN: Soft with mild abdominal distention. No mass or organomegaly. No rebound tenderness or guarding. Large amount of ascites seen. EXTREMITIES: With mild lower extremity edematous changes. No clubbing or cyanosis. NEUROLOGIC: No reported new neurological deficits, sensory or motor. No focal deficits. Peripheral pulses are present bilaterally. IMPRESSION: 1. Refractory ascites that could be secondary to right sided heart failure versus malignant ascites, patient has a history of prostatic carcinoma also. 2. The possibility of hepatic insufficiency with portal hypertension and refractory ascites was raised. 3. Known history but not limited to hypertension, congestive heart failure, coronary artery disease. 4. Dyspepsia with recurrent episode of acute gastritis. 5. Osteoarthritis, especially both knees. 6. Anemia most likely secondary to above. 7. Electrolyte imbalance with hypocalcemia and hypoalbuminemia. SUGGESTIONS: 1. Agree with your plan. 2. Correct any underlying electrolyte imbalance. 3. Correct coagulopathy before any aggressive procedure. 4. The patient will need ultrasound guided abdominal paracentesis by the IR staff, to be scheduled for a.m. on 11/06/2017 and ascitic fluid needs full analysis. 5. CEA, alpha fetoprotein and CA 19-9. 6. Proton pump inhibitors IV. 7. Further recommendation to follow and no need for other aggressive GI workup in the meantime. Halle Tran MD
[2017-11-06] MEDS: ZYTIGA 250 MG PO SCH (09:51)
[2017-11-06] MEDS: CASODEX 50 MG PO SCH (09:52)
--- NOTE | 2017-11-06 12:04 | CP.PCM.PN ---
Subjective - Date & Time of Evaluation Date of Evaluation: 11/06/17 Time of Evaluation: 19:00 Objective - Vital Signs/Intake and Output Vital Signs (last 24 hours): Temp Pulse Resp BP Pulse Ox 98.2 F 59 L 20 132/82 96 11/06/17 08:25 11/06/17 08:25 11/06/17 08:25 11/06/17 09:51 11/06/17 08:25 Intake and Output: 11/06/17 11/06/17 06:59 18:59 Intake Total 240 Balance 240 - Medications Medications: Current Medications Amiodarone HCl (Cordarone) 200 mg PO DAILY [facility] Last Admin: 11/06/17 09:51 Dose: 200 mg Dicyclomine HCl (Bentyl) 20 mg PO TID PRN PRN Reason: abdominal pain Furosemide (Lasix) 20 mg PO DAILY [facility] Last Admin: 11/06/17 09:51 Dose: 20 mg Heparin Sodium (Porcine) (Heparin) 5,000 units SC HS [facility] Last Admin: 11/05/17 21:23 Dose: 5,000 units Home Med (Patient's Own Medication) 4 tab PO DAILY [facility] Last Admin: 11/06/17 09:51 Dose: 4 tab Home Med (Patient's Own Medication) 1 tab PO DAILY [facility] Last Admin: 11/06/17 09:52 Dose: 1 tab Pantoprazole Sodium (Protonix Ec Tab) 40 mg PO DAILY [facility] Last Admin: 11/05/17 10:39 Dose: 40 mg Prednisone (Prednisone Tab) 5 mg PO BID [facility] Last Admin: 11/06/17 09:51 Dose: 5 mg Rosuvastatin Calcium (Crestor) 5 mg PO HS [facility] Last Admin: 11/05/17 21:21 Dose: 5 mg Spironolactone (Aldactone) 25 mg PO BID [facility] Last Admin: 11/06/17 09:51 Dose: 25 mg Tamsulosin HCl (Flomax) 0.4 mg PO DAILY [facility] Last Admin: 11/06/17 09:51 Dose: 0.4 mg - Labs Labs: 11/04/17 16:36 11/04/17 16:36 PT 12.7 SECONDS (9.7-12.2) H 11/04/17 16:36 INR 1.1 11/04/17 16:36 APTT 33 SECONDS (21-34) 11/04/17 16:36 Assessment and Plan (1) Generalized weakness Status: Acute (2) Abdominal distension Status: Acute (3) Ascites Status: Acute (4) Prostate CA Status: Acute
[2017-11-06] MEDS: Pantoprazole 40 mg EC Tab PO SCH (13:32)
--- NOTE | 2017-11-06 14:06 | PCM.HF ---
Heart Failure Core Measure WINTER Inhibitor Prescribed: No Contraindication/Reason for not providing: crf Beta-Mariana Prescribed: None Contraindication/Reason for not providing: bradycardia Angiotensin II Receptor Mariana Prescribed: No Contraindication/Reason for not providing: crf AnticoagulationTherapy for Atrial Fibrillation/Atrialflutter: No Contraindication/Reason for not providing: no afib Aldosterone Antagonist Prescribed: Yes Hydralazine Nitrate Prescribed: No Contraindication/Reason for not providing: ON AMIODARONE Implantable Cardioverter Defibrillator Therapy: No Contraindication/Reason for not providing: outpatient follow up Cardiac Resynchronization Therapy Prescribed: No Contraindication/Reason for not providing: not indicated - Follow up Follow Up Date (must be within 7 days from discharge): 11/13/17 Follow Up Time: 09:00
--- NOTE | 2017-11-06 14:11 | CP.PCM.PN ---
Objective - Vital Signs/Intake and Output Vital Signs (last 24 hours): Temp Pulse Resp BP Pulse Ox 98.2 F 59 L 20 132/82 96 11/06/17 08:25 11/06/17 08:25 11/06/17 08:25 11/06/17 09:51 11/06/17 08:25 Intake and Output: 11/06/17 11/06/17 06:59 18:59 Intake Total 240 Balance 240 - Medications Medications: Current Medications Amiodarone HCl (Cordarone) 200 mg PO DAILY [facility] Last Admin: 11/06/17 09:51 Dose: 200 mg Dicyclomine HCl (Bentyl) 20 mg PO TID PRN PRN Reason: abdominal pain Furosemide (Lasix) 20 mg PO DAILY [facility] Last Admin: 11/06/17 09:51 Dose: 20 mg Heparin Sodium (Porcine) (Heparin) 5,000 units SC [facility] Last Admin: 11/05/17 21:23 Dose: 5,000 units Home Med (Patient's Own Medication) 4 tab PO DAILY [facility] Last Admin: 11/06/17 09:51 Dose: 4 tab Home Med (Patient's Own Medication) 1 tab PO DAILY [facility] Last Admin: 11/06/17 09:52 Dose: 1 tab Pantoprazole Sodium (Protonix Ec Tab) 40 mg PO DAILY [facility] Last Admin: 11/06/17 13:32 Dose: 40 mg Prednisone (Prednisone Tab) 5 mg PO BID [facility] Last Admin: 11/06/17 09:51 Dose: 5 mg Rosuvastatin Calcium (Crestor) 5 mg PO HS [facility] Last Admin: 11/05/17 21:21 Dose: 5 mg Spironolactone (Aldactone) 25 mg PO BID [facility] Last Admin: 11/06/17 09:51 Dose: 25 mg Tamsulosin HCl (Flomax) 0.4 mg PO DAILY [facility] Last Admin: 11/06/17 09:51 Dose: 0.4 mg - Labs Labs: 11/04/17 16:36 11/04/17 16:36 PT 12.7 SECONDS (9.7-12.2) H 11/04/17 16:36 INR 1.1 11/04/17 16:36 APTT 33 SECONDS (21-34) 11/04/17 16:36 Assessment and Plan - Assessment and Plan (Free Text) Assessment: Patient is seen and examined post paracentesis. Alert, oriented, no dizziness or distress. Removed 7.1 liter fluid.
--- NOTE | 2017-11-06 14:12 | PCM.SURG1 ---
Surgeon's Initial Post Op Note - Surgeon's Notes Surgeon: Bijan Chaparro MD Collection Team Lead: NONE Type of Anesthesia: Local Pre-Operative Diagnosis: Ascites, cirrhosis Operative Findings: US showed a large amount of ascites Post-Operative Diagnosis: Ascites, cirrhosis Operation Performed: US guided paracentesis Specimen/Specimens Removed: 8 liters of straw colored fluid Estimated Blood Loss: EBL {In ML}: 1 Blood Products Given: N/A Drains Used: No Drains Post-Op Condition: Fair Date of Surgery/Procedure: 11/06/17 Time of Surgery/Procedure: 12:00
--- NOTE | 2017-11-06 14:21 | US ---
Date of Procedure: 11/06/2017 PROCEDURE: Ultrasound-guided paracentesis, CPT 77587 Medications: 7 cc 1% Lidocaine HISTORY: Ascites, abdominal pain, cirrhosis TECHNIQUE: Following informed consent , the patient was placed supine on the stretcher and the site was marked. A limited abdominal ultrasound was performed that showed a large amount of intra-abdominal fluid. Procedural time out was called and the Pt's abdomen was marked and prepped and draped in the usual sterile fashion. Ultrasound-guided large volume paracentesis performed. A total of 8 liters of straw colored fluid was removed without complication. IMPRESSION: Ultrasound-guided large volume paracentesis.
--- NOTE | 2017-11-06 14:57 | PN ---
DATE: LOCATION: [facility], bed B. SUBJECTIVE: This 77-year-old male seen and examined early in rounds without significant clinical changes, with a complaint again of some abdominal distention and mild respiratory discomfort. No chest pain. No active bleeding. No nausea or vomiting this morning. The entire chart is reviewed including, but not limited to, the most recent lab and radiology study results, current and previous medication list, current and previous medical events and the patient reported to have elevated CEA level to 5.7, but with normal alpha fetoprotein and normal CA19-9. PHYSICAL EXAMINATION: GENERAL: A 77-year-old male. VITAL SIGNS: Afebrile with pulse of 62, respiratory rate 20 to 22, and blood pressure 128/80. HEENT: Showed pale dry oral mucoid membranes. Nonicteric sclerae. LUNGS: Few scattered crepitations, decreased air entry at bases. HEART: Positive S1 and S2. ABDOMEN: Soft bowel sounds are present with mild generalized tenderness. No mass or organomegaly. No rebound tenderness or guarding. Positive for moderate to large amount of ascites. EXTREMITIES: With lower extremity mild edematous changes. No clubbing or cyanosis. NEUROLOGIC: No reported new neurological deficit sensory or motor. No reported new focal deficits. Peripheral pulses are present bilaterally. IMPRESSION: 1. Refractory ascites with probable evidence of portal hypertension versus ascites secondary to right sided heart failure. 2. Dyspepsia with episodes of acute gastritis. 3. Electrolyte imbalance with hypocalcemia. 4. Anemia, most likely secondary to above. 5. Known history of hypertension, congestive heart failure, coronary artery disease. 6. Osteoarthritis by history, involving mainly both knees. 7. Elevated carcinoembryonic antigen level that could be secondary to occult large gastrointestinal tract malignancy versus secondary to hepatic dysfunction with possible liver cirrhosis. SUGGESTIONS: 1. Continue current management. 2. CAT scan or ultrasound guided abdominal paracentesis. 3. The patient may need coloscopy when he is more stable clinically, that could be done as outpatient. 4. Further recommendation to follow. Halle Tran MD
[2017-11-06 16:40] VITALS: BP 119/75; PULSE 60; TEMP 97.5; O2SAT 100
--- NOTE | 2017-11-07 22:53 | CP.PCM.DIS ---
Provider - Provider Date of Admission: 11/04/17 17:13 Attending physician: Gregory Thrasher MD Diagnosis - Discharge Diagnosis (1) Generalized weakness Status: Acute (2) Abdominal distension Status: Acute (3) Ascites Status: Acute (4) Prostate CA Status: Acute Hospital Course - Lab Results Lab Results: Most Recent Lab Values WBC 5.8 K/uL (4.8-10.8) 11/04/17 16:36 RBC 3.32 Mil/uL (4.40-5.90) L 11/04/17 16:36 Hgb 9.8 g/dL (12.0-18.0) L 11/04/17 16:36 Hct 30.9 % (35.0-51.0) L 11/04/17 16:36 MCV 93.2 fL (80.0-94.0) 11/04/17 16:36 MCH 29.5 pg (27.0-31.0) 11/04/17 16:36 MCHC 31.7 g/dL (33.0-37.0) L 11/04/17 16:36 RDW 19.5 % (11.5-14.5) H 11/04/17 16:36 Plt Count 145 K/uL (130-400) 11/04/17 16:36 MPV 9.0 fL (7.2-11.7) 11/04/17 16:36 Neut % (Auto) 86.2 % (50.0-75.0) H 11/04/17 16:36 Lymph % (Auto) 6.7 % (20.0-40.0) L 11/04/17 16:36 [place] % (Auto) 6.7 % (0.0-10.0) 11/04/17 16:36 Eos % (Auto) 0.1 % (0.0-4.0) 11/04/17 16:36 Baso % (Auto) 0.3 % (0.0-2.0) 11/04/17 16:36 Neut # (Auto) 5.0 K/uL (1.8-7.0) 11/04/17 16:36 Lymph # (Auto) 0.4 K/uL (1.0-4.3) L 11/04/17 16:36 [place] # (Auto) 0.4 K/uL (0.0-0.8) 11/04/17 16:36 Eos # (Auto) 0.0 K/uL (0.0-0.7) 11/04/17 16:36 Baso # (Auto) 0.0 K/uL (0.0-0.2) 11/04/17 16:36 Neutrophils % (Manual) 93 % (50-75) H 11/04/17 16:36 Lymphocytes % (Manual) 5 % (20-40) L 11/04/17 16:36 Monocytes % (Manual) 2 % (0-10) 11/04/17 16:36 Platelet Estimate Decreased (NORMAL) L 11/04/17 16:36 Large Platelets Present 11/04/17 16:36 Hypochromasia (manual) Slight 11/04/17 16:36 Anisocytosis (manual) Slight 11/04/17 16:36 Macrocytosis (manual) Slight 11/04/17 16:36 Ovalocytes Slight 11/04/17 16:36 [place] Cells Slight 11/04/17 16:36 PT 12.7 SECONDS (9.7-12.2) H 11/04/17 16:36 INR 1.1 11/04/17 16:36 APTT 33 SECONDS (21-34) 11/04/17 16:36 Sodium 137 mmol/L (132-148) 11/04/17 16:36 Potassium 5.0 mmol/L (3.6-5.2) 11/04/17 16:36 Chloride 105 mmol/L (98-107) 11/04/17 16:36 Carbon Dioxide 25 mmol/L (22-30) 11/04/17 16:36 Anion Gap 13 (10-20) 11/04/17 16:36 BUN 21 mg/dL (9-20) H 11/04/17 16:36 Creatinine 1.2 mg/dL (0.8-1.5) 11/04/17 16:36 Est GFR ( Amer) > 60 11/04/17 16:36 Est GFR (Non-Af Amer) 59 11/04/17 16:36 Random Glucose 88 mg/dL (75-110) 11/04/17 16:36 Calcium 8.3 mg/dl (8.6-10.4) L 11/04/17 16:36 Total Bilirubin 0.9 mg/dL (0.2-1.3) 11/04/17 16:36 AST 57 U/L (17-59) 11/04/17 16:36 ALT 21 U/L (21-72) 11/04/17 16:36 Alkaline Phosphatase 452 U/L (38-126) H 11/04/17 16:36 Total Protein 6.4 g/dL (6.3-8.3) 11/04/17 16:36 Albumin 3.4 g/dL (3.5-5.0) L D 11/04/17 16:36 Globulin 2.9 gm/dL (2.2-3.9) 11/04/17 16:36 Albumin/Globulin Ratio 1.2 (1.0-2.1) 11/04/17 16:36 Lipase 160 U/L (23-300) 11/04/17 16:36 Alpha Fetoprotein 3.3 ng/mL (0.0-7.5) 11/05/17 11:30 Carcinoembryonic Ag 5.7 ng/mL (0-3.0) H 11/05/17 11:30 CA 19-9 Antigen 9.1 U/mL (0-37) 11/05/17 11:30 Hepatitis A IgM Ab Negative (NEGATIVE) 11/04/17 22:55 Hep Bs Antigen Negative (NEGATIVE) 11/04/17 22:55 Hep B Core IgM Ab Negative (NEGATIVE) 11/04/17 22:55 Hepatitis C Antibody Negative (NEGATIVE) 11/04/17 22:55 Blood Type A POSITIVE 11/04/17 16:36 Antibody Screen Negative 11/04/17 16:36 - Hospital Course Hospital Course: pt is s/p US guided paracentesis, 8 liters of straw colored fluid Discharge Exam - Head Exam Head Exam: ATRAUMATIC, NORMAL INSPECTION, NORMOCEPHALIC Discharge Plan - Follow Up Plan Condition: GOOD Disposition: HOME/ ROUTINE Instructions: Heart Failure, Adult (DC), Prostate Cancer (DC), Fluid in the Belly (Ascites) (DC) Referrals: Gregory Thrasher MD [Staff Provider] -
== END 2017-11-06 17:40 | disposition home or self-care (01) ==
LOC: C.ER 15:22 → C.9E 17:13 → C.3T 17:44
PROVIDERS: ADMIT Internal Medicine; ATTEND Internal Medicine
DX: R18.8 Other ascites (principal); C61 Malignant neoplasm of prostate; C79.51 Secondary malignant neoplasm of bone; I11.0 Hypertensive heart disease with heart failure; I50.9 Heart failure, unspecified; Z87.891 Personal history of nicotine dependence; C25.9 Malignant neoplasm of pancreas, unspecified; D64.9 Anemia, unspecified; E83.51 Hypocalcemia; E88.09 Other disorders of plasma-protein metabolism, not elsewhere classified; I25.10 Atherosclerotic heart disease of native coronary artery without angina pectoris; K29.00 Acute gastritis without bleeding; M17.0 Bilateral primary osteoarthritis of knee
CPT/HCPCS: 36415; 49083; 80053; 80074; 82105; 82378; 83690; 85025; 85610; 85730; 86301; 86850; 86900; 99285; G0378; J1644; J3430

== ENCOUNTER 2018-01-24 10:10 | Inpatient (IN) | payer BC, MEDICARE ==
[2018-01-24 10:10] VITALS: BMI 23.7
--- NOTE | 2018-01-24 11:03 | RAD ---
PROCEDURE: CHEST RADIOGRAPH, 1 VIEW HISTORY: ASCITES COMPARISON: Chest radiograph dated 09/12/2017. FINDINGS: LUNGS: Pulmonary vascular congestion. Focal consolidation. PLEURA: No pneumothorax or pleural fluid seen. CARDIOVASCULAR: Atherosclerotic aortic calcifications. Cardiomediastinal silhouette stably enlarged. OSSEOUS STRUCTURES: Unchanged. VISUALIZED UPPER ABDOMEN: Normal. OTHER FINDINGS: None. IMPRESSION: Pulmonary vascular congestion. No focal consolidation or pleural effusion. Stable cardiomegaly.
[2018-01-24 11:19] LABS: BASO % 0.4 % (0.0-2.0); EOS % 0.2 % (0.0-4.0); LYMPH # 0.5 K/uL (1.0-4.3); LYMPH % 10.1 % (20.0-40.0); MEAN CELL VOLUME 93.9 fL (80.0-94.0); MEAN CORPUSCULAR HEMOGLOBIN 30.2 pg (27.0-31.0); MEAN CORPUSCULAR HGB CONC 32.2 g/dL (33.0-37.0); MEAN PLATELET VOLUME 9.8 fL (7.2-11.7); MONO # 0.4 K/uL (0.0-0.8); MONO % 7.6 % (0.0-10.0); NEUT # 3.8 K/uL (1.8-7.0); NEUT % 81.7 % (50.0-75.0); NRBC % 0.1 % (0.0-2.0); RBC 3.29 Mil/uL (4.40-5.90); RED CELL DISTRIBUTION WIDTH 20.9 % (11.5-14.5); WHITE BLOOD COUNT 4.7 K/uL (4.8-10.8)
[2018-01-24 11:27] LABS: INR 1.4; PROTHROMBIN TIME 14.9 SECONDS (9.7-12.2)
[2018-01-24 11:35] LABS: ALB/GLOB RATIO 1.1 (1.0-2.1); ALBUMIN 3.7 g/dL (3.5-5.0); CALCIUM 9.3 mg/dl (8.6-10.4)
[2018-01-24 11:45] LABS: CK-MB 2.03 ng/mL (0.0-3.38); TROPONIN I 0.056 ng/mL (0.00-0.120)
[2018-01-24 14:12] VITALS: RESP 20
--- NOTE | 2018-01-24 19:28 | C.PDOC ---
History Of Present Illness 77-year-old male, presents to the emergency department with complaints of abdominal distention for the past 4-5 days that worsens with laying flat. He is also complaining of worsening leg edema for the past week. Patient reports a Hx of Hep C but states it has "resolved." Patient denies chest pain, vomiting, diarrhea, fever or any other associated symptoms. Time Seen by Provider: 01/24/18 10:36 Chief Complaint (Nursing): Abdominal Pain History Per: Patient History/Exam Limitations: no limitations Past Medical History Reviewed: Historical Data, Nursing Documentation, Vital Signs Vital Signs: Last Vital Signs Temp 97.5 F L 01/24/18 15:08 Pulse 66 01/24/18 15:08 Resp 20 01/24/18 15:08 BP 138/88 01/24/18 15:08 Pulse Ox 97 01/24/18 15:08 - Medical History PMH: Arthritis (KNEE), CAD, CHF, Gastritis, Gall Bladder Disease, HTN, Malignancy (Prostate) Denies: Chronic Kidney Disease - [facility] Procedures DRAINAGE OF PERITONEAL CAVITY, PERCUTANEOUS APPROACH (09/12/17) DRAINAGE OF PERITONEAL CAVITY, PERCUTANEOUS APPROACH, DIAGN (02/12/17) ULTRASONOGRAPHY OF ABDOMEN (09/12/17) Family History: States: No Known Family Hx - Social History Hx Tobacco Use: No Hx Alcohol Use: No Hx Substance Use: No - Immunization History Hx Tetanus Toxoid Vaccination: (unk) Hx Influenza Vaccination: Yes Hx Pneumococcal Vaccination: (unk) Review Of Systems Constitutional: Negative for: Fever, Chills Cardiovascular: Negative for: Chest Pain, Palpitations Respiratory: Positive for: Shortness of Breath Gastrointestinal: Positive for: Other (abdominal distention). Negative for: Vomiting Musculoskeletal: Positive for: Other (leg edema) Neurological: Negative for: Weakness, Numbness, Headache, Dizziness Physical Exam - Physical Exam Appears: Non-toxic, No Acute Distress, Other (Speaking in full sentences) Skin: Normal Color, Warm, Dry, No Rash Head: Normacephalic Eye(s): bilateral: PERRL Nose: Normal Oral Mucosa: Moist Lips: Normal Appearing Neck: Normal ROM Chest: Symmetrical Cardiovascular: Rhythm Regular, No Murmur Respiratory: No Accessory Muscle Use, Rales (B/L bases) Gastrointestinal/Abdominal: Soft, Tenderness (diffusely, greater in RUQ), No Distention, No Guarding, No Rebound Extremity: Normal ROM, Pedal Edema (+1), No Swelling Neurological/Psych: Oriented x3, Normal Speech ED Course And Treatment - Laboratory Results Result Diagrams: 01/24/18 11:15 01/24/18 11:15 O2 Sat by Pulse Oximetry: 97 Pulse Ox Interpretation: Normal - Other Rad CXR X-Ray: Viewed By Me, Read By Radiologist Interpretation: Accession No. : [id number]. Patient Name / ID : ADILIA Marks / [id number]. Exam Date : 01/24/2018 10:54:24 ( Approved ). Study Comment : Sex / Age : M / 77Y. Creator : Justin Chowdary MD. Dictator : Justin Chowdary MD. Quality Assurance Qa Lab Technician : Inspector Bicycle : Justin Chowdary MD. Approver2 : Report Date : 01/24/2018 11:01:54. My Comment : . PROCEDURE: CHEST RADIOGRAPH, 1 VIEW. HISTORY: ASCITES. COMPARISON: Chest radiograph dated 09/12/2017. FINDINGS: LUNGS: Pulmonary vascular congestion. Focal consolidation. PLEURA: No pneumothorax or pleural fluid seen. CARDIOVASCULAR : Atherosclerotic aortic calcifications. Cardiomediastinal silhouette stably enlarged. OSSEOUS STRUCTURES: Unchanged. VISUALIZED UPPER ABDOMEN: Normal. OTHER FINDINGS: None. IMPRESSION: Pulmonary vascular congestion. No focal consolidation or pleural effusion. Stable cardiomegaly. Progress Note: EKG, Bloodwork and CXR ordered and reviewed. Patient treated with Bentyl. Cardiac Echo ordered, pt admitted. Disposition - Disposition Disposition: HOSPITALIZED - Scribe Statement The provider has reviewed the documentation as recorded by the Scribe (Cris Lott) All medical record entries made by the Scribe were at my direction and personally dictated by me. I have reviewed the chart and agree that the record accurately reflects my personal performance of the history, physical exam, medical decision making, and the department course for this patient. I have also personally directed, reviewed, and agree with the discharge instructions and disposition.
[2018-01-25 07:58] LABS: BASO % 0.4 % (0.0-2.0); EOS % 0.1 % (0.0-4.0); HEMOGLOBIN 10.6 g/dL (12.0-18.0); LYMPH # 0.5 K/uL (1.0-4.3); MEAN CELL VOLUME 93.2 fL (80.0-94.0); MEAN CORPUSCULAR HGB CONC 32.2 g/dL (33.0-37.0); MEAN PLATELET VOLUME 10.4 fL (7.2-11.7); MONO # 0.4 K/uL (0.0-0.8); MONO % 7.3 % (0.0-10.0); NEUT # 4.8 K/uL (1.8-7.0); NEUT % 84.2 % (50.0-75.0); NRBC % 0.2 % (0.0-2.0); PLATELET COUNT 131 K/uL (130-400); RBC 3.53 Mil/uL (4.40-5.90); RED CELL DISTRIBUTION WIDTH 21.2 % (11.5-14.5); WHITE BLOOD COUNT 5.7 K/uL (4.8-10.8)
[2018-01-25 08:10] LABS: ALB/GLOB RATIO 1.1 (1.0-2.1); ALBUMIN 3.6 g/dL (3.5-5.0); CALCIUM 8.5 mg/dl (8.6-10.4)
--- NOTE | 2018-01-25 08:27 | CP.PCM.HP ---
History of Present Illness - History of Present Illness History of Present Illness: CC: abdominal pain History Of Present Illness 77-year-old male, presents to the emergency department with complaints of abdominal distention for the past 4-5 days that worsens with laying flat. He is also complaining of worsening leg edema for the past week. Patient reports a Hx of Hep C but states it has "resolved." Patient denies chest pain, vomiting, diarrhea, fever or any other associated symptoms. Present on Admission - Present on Admission Any Indicators Present on Admission: Yes Review of Systems - Review of Systems Systems not reviewed;Unavailable: Acuity of Condition - Constitutional Constitutional: Fatigue, Lethargy, Malaise - EENT Nose/Mouth/Throat: absent: As Per HPI, Epistaxis, Nasal Congestion, Nasal Discharge, Nasal Obstruction, Nasal Trauma, Nose Pain, Post Nasal Drip, Sinus Pain, Sinus Pressure, Bleeding Gums, Change in Voice, Dental Pain, Dry Mouth, Dysphagia, Halitosis, Hoarsness, Lip Swelling, Mouth Lesions, Mouth Pain, Odynophagia, Sore Throat, Throat Swelling, Tongue Swelling, Facial Pain, Neck Pain, Neck Mass, Other - Cardiovascular Cardiovascular: Leg Edema, Pedal Edema - Respiratory Respiratory: Cough, Dyspnea - Gastrointestinal Gastrointestinal: Abdominal Pain, Dyspepsia - Genitourinary Genitourinary: absent: As Per HPI, Change in Urinary Stream, Difficulty Urinating, Dysuria, Flank Pain, Hematuria, Pyuria, Nocturia, Urinary Incontinence, Urinary Frequency, Urinary Hesitance, Urinary Urgency, Voiding Freq/Small Amts, Freq UTI, Hx Renal/Bladder Calculi, Hx /Renal Surgery, Bladder Distension, Other - Musculoskeletal Musculoskeletal: Back Pain, Muscle Weakness, Myalgias, Numbness, Tingling - Integumentary Integumentary: absent: As Per HPI, Acne, Alopecia, Bleeding Lesions, Change in Hair, Change in Nails, Change in Pigmentation, Changing Lesions, Dry Skin, Erythema, Furuncle, Hirsutism, Lesions, New Lesions, Non-Healing Lesions, Photosensitivity, Pruritus, Rash, Skin Pain, Skin Ulcer, Sores, Striae, Swelling , Unusual Bruising, Wounds, Jaundice, Other - Neurological Neurological: absent: As Per HPI, Abnormal Gait, Abnormal Hearing, Abnormal Movements, Abnormal Speech, Behavioral Changes, Burning Sensations, Confusion, Convulsions, Disequilibrium, Dizziness, Numbness, Focal Weakness, Frequent Falls , Headaches, Lack of Coordination, Loss of Vision, Memory Loss, Paresthesias, Radicular Pain, Restless Legs, Sensory Deficit, Syncope, Tingling, Tremor, Vertigo, Weakness, Other Visual Disturbances, Other Past Patient History - Infectious Disease Hx of Infectious Diseases: None - Past Medical History & Family History Past Medical History?: Yes - Past Social History Smoking Status: Former Smoker - CARDIAC Hx Congestive Heart Failure: Yes Hx Hypertension: Yes - PULMONARY Hx Respiratory Disorders: No - NEUROLOGICAL Hx Neurological Disorder: No - HEENT Hx HEENT Problems: No - RENAL Hx Chronic Kidney Disease: No - ENDOCRINE/METABOLIC Hx Endocrine Disorders: No - HEMATOLOGICAL/ONCOLOGICAL Hx Blood Disorders: Yes Hx Cancer: Yes (PROSTATE) Hx Chemotherapy: Yes - INTEGUMENTARY Hx Dermatological Problems: No - MUSCULOSKELETAL/RHEUMATOLOGICAL Hx Arthritis: Yes (KNEE) - GASTROINTESTINAL Hx Gall Bladder Disease: Yes Hx Gastritis: Yes - GENITOURINARY/GYNECOLOGICAL Hx Genitourinary Disorders: No - PSYCHIATRIC Hx Substance Use: No - SURGICAL HISTORY Hx Surgeries: Yes Other/Comment: hernia repair 03/20/17 - ANESTHESIA Hx Anesthesia: Yes Hx Anesthesia Reactions: No Hx Malignant Hyperthermia: No Meds Allergies/Adverse Reactions: Allergies Allergy/AdvReac Type Severity Reaction Status Date / Time No Known Allergies Allergy Verified 01/24/18 10:29 Physical Exam - Constitutional Appears: No Acute Distress, Chronically Ill - Head Exam Head Exam: ATRAUMATIC, NORMAL INSPECTION, NORMOCEPHALIC - Eye Exam Eye Exam: EOMI, Normal appearance, PERRL Pupil Exam: NORMAL ACCOMODATION, PERRL - Respiratory Exam Respiratory Exam: Decreased Breath Sounds, Rales, Rhonchi - Cardiovascular Exam Cardiovascular Exam: REGULAR RHYTHM, +S1, +S2 Additional comments: S3 POSITIVE - GI/Abdominal Exam GI & Abdominal Exam: Distended, Normal Bowel Sounds, Soft - Rectal Exam Rectal Exam: NORMAL INSPECTION Results - Vital Signs Recent Vital Signs: Last Vital Signs Temp 97.5 F L 01/25/18 07:05 Pulse 65 01/25/18 07:05 Resp 20 01/25/18 07:05 BP 142/87 01/25/18 07:05 Pulse Ox 96 01/25/18 07:05 - Labs Result Diagrams: 01/26/18 06:30 01/26/18 06:30 Labs: Laboratory Results - last 24 hr 01/24/18 01/24/18 01/24/18 11:15 11:15 11:15 WBC 4.7 L RBC 3.29 L Hgb 10.0 L Hct 30.9 L MCV 93.9 MCH 30.2 MCHC 32.2 L RDW 20.9 H Plt Count 130 MPV 9.8 Neut % (Auto) 81.7 H Lymph % (Auto) 10.1 L [place] % (Auto) 7.6 Eos % (Auto) 0.2 Baso % (Auto) 0.4 Neut # (Auto) 3.8 Lymph # (Auto) 0.5 L [place] # (Auto) 0.4 Eos # (Auto) 0.0 Baso # (Auto) 0.0 PT 14.9 H INR 1.4 APTT 36 H Sodium 145 Potassium 4.6 Chloride 110 H Carbon Dioxide 20 L Anion Gap 20 BUN 17 Creatinine 1.4 Est GFR ( Amer) 60 Est GFR (Non-Af Amer) 49 Random Glucose 110 Calcium 9.3 Total Bilirubin 1.6 H AST 53 ALT 19 L Alkaline Phosphatase 975 H D Total Creatine Kinase 236 H CK-MB (Mass) 2.03 Troponin I 0.0560 NT-Pro-B Natriuret Pep 14874 H Total Protein 7.0 Albumin 3.7 Globulin 3.3 Albumin/Globulin Ratio 1.1 01/25/18 01/25/18 07:43 07:43 WBC 5.7 RBC 3.53 L Hgb 10.6 L Hct 32.9 L MCV 93.2 MCH 30.0 MCHC 32.2 L RDW 21.2 H Plt Count 131 MPV 10.4 Neut % (Auto) 84.2 H Lymph % (Auto) 8.0 L [place] % (Auto) 7.3 Eos % (Auto) 0.1 Baso % (Auto) 0.4 Neut # (Auto) 4.8 Lymph # (Auto) 0.5 L [place] # (Auto) 0.4 Eos # (Auto) 0.0 Baso # (Auto) 0.0 PT INR APTT Sodium 145 Potassium 5.2 Chloride 108 H Carbon Dioxide 22 Anion Gap 19 BUN 19 Creatinine 1.5 Est GFR ( Amer) 55 Est GFR (Non-Af Amer) 46 Random Glucose 84 Calcium 8.5 L Total Bilirubin 1.3 AST 47 ALT 11 L D Alkaline Phosphatase 907 H Total Creatine Kinase CK-MB (Mass) Troponin I NT-Pro-B Natriuret Pep Total Protein 6.8 Albumin 3.6 Globulin 3.2 Albumin/Globulin Ratio 1.1 Assessment & Plan (1) Abdominal distension Status: Acute (2) Ascites Status: Acute (3) CHF (congestive heart failure) Status: Acute (4) HTN (hypertension) Status: Chronic (5) History of coronary artery disease Status: Chronic
[2018-01-25] MEDS: ZYTIGA 250 MG PO SCH (10:07)
[2018-01-25] MEDS: BICALUTAMIDE PO SCH (10:07)
[2018-01-25 10:29] LABS: ANISOCYTOSIS MODERATE; LYMPHOCYTE 7 % (20-40); MONOCYTE 6 % (0-10); NEUTROPHIL 87 % (50-75); PLATELET ESTIMATE NORMAL (NORMAL); TOTAL CELLS COUNTED 100
[2018-01-25 10:45] LABS: BURR CELLS SLIGHT; POIKILOCYTOSIS SLIGHT; TEARDROP CELLS SLIGHT
--- NOTE | 2018-01-25 12:38 | CARD ---
APPROVED REPORT EXAM: Two-dimensional and M-mode echocardiogram with Doppler and color Doppler. Other Information Quality : GoodRhythm : INDICATION ICD: 429.3 Cardiomegaly Dyspnea Atrial Fibrillation Cardiac Disease: CAD Congestive Heart Failure hx of prostate CA,ASCITES 2D DIMENSIONS IVSd1.3 (0.7-1.1cm)LVDd6.1 (3.9-5.9cm) PWd0.7 (0.7-1.1cm)LVDs4.7 (2.5-4.0cm) FS (%) 22.2 %LVEF (%)20.0 (>50%) M-Mode DIMENSIONS RVDd4.29 (2.1-3.2cm)Left Atrium (MM)4.33 (2.5-4.0cm) IVSd1.37 (0.7-1.1cm)Aortic Root3.07 (2.2-3.7cm) LVDd5.84 (4.0-5.6cm)Aortic Cusp Exc.1.96 (1.5-2.0cm) PWd0.82 (0.7-1.1cm)FS (%) 6 % LVDs5.46 (2.0-3.8cm)LVEF (%)14 (>50%) Aortic Valve AI P 1/2 [id number] Mitral Valve MV E Jkbunmkv06.5cm/sMV A Wrmuzygb72.7cm/sE/A ratio1.6 TDI E/Lateral E'0.0E/Medial E'0.0 Tricuspid Valve TR Peak Glurjcfo685qg/sTR Peak Gr.[id number] LEFT VENTRICLE The Left Ventricle is mildly dilated. There is normal left ventricular wall thickness. The systolic function is severely impaired. The Ejection Fraction is - 15%. There is a flattened septum consistent with right ventricle volume and pressure overload. Elevated left atrial pressure Transmitral Doppler flow pattern is Grade II-pseudonormal filling dynamics. RIGHT VENTRICLE The right ventricle is moderately to severely dilated. Systolic function is mildly to moderately reduced. ATRIA The left atrium is mildly dilated. The right atrium is severely dilated. The interatrial septum is intact with no evidence for an atrial septal defect. AORTIC VALVE The aortic valve is normal in structure. There is moderate aortic regurgitation. MITRAL VALVE The mitral valve is normal in structure. Mitral regurgitation is mild. TRICUSPID VALVE The tricuspid valve is normal in structure. There is severe tricuspid regurgitation. Right ventricular systolic pressure is estimated at 47 mmHg. There is moderate pulmonary hypertension. PULMONIC VALVE The pulmonary valve is normal in structure. There is mild pulmonic valvular regurgitation. GREAT VESSELS The aortic root is normal in size. The IVC was not visualized. PERICARDIAL EFFUSION There is a small circumferential pericardial effusion. <Conclusion> The left ventricular systolic function is severely impaired. The Ejection Fraction is - 15%. There is a flattened septum consistent with right ventricle volume and pressure overload. Moderate diastolic. Transmitral Doppler flow pattern is Grade II-pseudonormal filling dynamics. Elevated left atrial pressure The right ventricle is moderately to severely dilated. Systolic function is mildly to moderately reduced. The right atrium is severely dilated. There is moderate aortic regurgitation. There is severe tricuspid regurgitation. Right ventricular systolic pressure is estimated at 47 mmHg compatible with at least moderate pulmonary hypertension. There is a small circumferential pericardial effusion. Prominent ascites noted
--- NOTE | 2018-01-25 15:25 | PCM.SURG1 ---
Surgeon's Initial Post Op Note - Surgeon's Notes Surgeon: Katina Jewel Corner Brushing Machine Operator: None Type of Anesthesia: Local Pre-Operative Diagnosis: Ascites Operative Findings: Ascites Post-Operative Diagnosis: Ascites Operation Performed: Paracentesis Specimen/Specimens Removed: Approx 10L of clear yellow fluid aspirated Estimated Blood Loss: EBL {In ML}: 1 Date of Surgery/Procedure: 01/25/18 Time of Surgery/Procedure: 15:00
[2018-01-25 15:43] VITALS: O2SAT 100
[2018-01-25] MEDS ORDERED: Albumin Human 25% (12.5 gm/50 ml) IV ONE ×2 (15:45)
--- NOTE | 2018-01-25 16:02 | CP.PCM.CON ---
History of Present Illness - History of Present Illness History of Present Illness: COVERING DR. JONES Re: dyspnea Seen and examined at bedside Admitted with abdominal distension insidious progressive; also complained of dyspnea; denied chest pain palpitations syncope Past medical history significant for hepatitis C Systemic hypertension coronary artery disease 'Congestive heart failure" Azotemia Past surgery Gall bladder Prostate cancer Denied smoking or alcohol abuse Exam Afebrile Elevated venous pressures Normal carotids; no bruits No goiter Dull percussion note at the bases bilaterally Normal breath sounds intensity No rales ?PMI Normal heart sounds intensity except a loud P2 Abdomen: distented; nont ronn Free fluid BS + alert oriented x3 EKGLow voltages; ?old anterior infarct; prolonged QTc Labs reviewed: Elevated BNP; mild anemia; elevated Alkaline phosphotase; bilirubin 1.5 Echo: Severe LV systolic dysfunction; PA pressures 50mmHg elevated venous pressures Past Patient History - Infectious Disease Hx of Infectious Diseases: None - Past Medical History & Family History Past Medical History?: Yes - Past Social History Smoking Status: Former Smoker - CARDIAC Hx Congestive Heart Failure: Yes Hx Hypertension: Yes - PULMONARY Hx Respiratory Disorders: No - NEUROLOGICAL Hx Neurological Disorder: No - HEENT Hx HEENT Problems: No - RENAL Hx Chronic Kidney Disease: No - ENDOCRINE/METABOLIC Hx Endocrine Disorders: No - HEMATOLOGICAL/ONCOLOGICAL Hx Blood Disorders: Yes Hx Cancer: Yes (PROSTATE) Hx Chemotherapy: Yes - INTEGUMENTARY Hx Dermatological Problems: No - MUSCULOSKELETAL/RHEUMATOLOGICAL Hx Arthritis: Yes (KNEE) - GASTROINTESTINAL Hx Gall Bladder Disease: Yes Hx Gastritis: Yes - GENITOURINARY/GYNECOLOGICAL Hx Genitourinary Disorders: No - PSYCHIATRIC Hx Substance Use: No - SURGICAL HISTORY Hx Surgeries: Yes Other/Comment: hernia repair 03/20/17 - ANESTHESIA Hx Anesthesia: Yes Hx Anesthesia Reactions: No Hx Malignant Hyperthermia: No Meds Allergies/Adverse Reactions: Allergies Allergy/AdvReac Type Severity Reaction Status Date / Time No Known Allergies Allergy Verified 01/24/18 10:29 - Medications Medications: Current Medications Amiodarone HCl (Cordarone) 200 mg PO DAILY [facility] Last Admin: 01/25/18 10:06 Dose: 200 mg Dicyclomine HCl (Bentyl) 20 mg PO TID [facility] Last Admin: 01/25/18 13:06 Dose: 20 mg Famotidine (Pepcid) 40 mg PO DAILY [facility] Last Admin: 01/25/18 10:06 Dose: 40 mg Furosemide (Lasix) 40 mg IVP BID [facility] Last Admin: 01/25/18 10:06 Dose: 40 mg Heparin Sodium (Porcine) (Heparin) 5,000 units SC Q12 [facility] Last Admin: 01/24/18 22:15 Dose: 5,000 units Home Med (Patient's Own Medication) 4 tab PO DAILY [facility] Last Admin: 01/25/18 10:07 Dose: 4 tab Home Med (Patient's Own Medication) 1 tab PO DAILY [facility] Last Admin: 01/25/18 10:07 Dose: 1 tab Prednisone (Prednisone Tab) 5 mg PO BID [facility] Last Admin: 01/25/18 10:06 Dose: 5 mg Rosuvastatin Calcium (Crestor) 10 mg PO HS [facility] Last Admin: 01/24/18 22:16 Dose: 10 mg Tamsulosin HCl (Flomax) 0.4 mg PO DAILY [facility] Last Admin: 01/25/18 10:59 Dose: 0.4 mg Results - Vital Signs Recent Vital Signs: Last Vital Signs Temp 97.4 F L 01/25/18 15:43 Pulse 74 01/25/18 15:43 Resp 20 01/25/18 15:43 BP 133/77 01/25/18 15:43 Pulse Ox 100 01/25/18 15:43 - Labs Result Diagrams: 01/25/18 07:43 01/25/18 07:43 Labs: Laboratory Results - last 24 hr 01/25/18 01/25/18 01/25/18 07:43 07:43 11:47 WBC 5.7 RBC 3.53 L Hgb 10.6 L Hct 32.9 L MCV 93.2 MCH 30.0 MCHC 32.2 L RDW 21.2 H Plt Count 131 MPV 10.4 Neut % (Auto) 84.2 H Lymph % (Auto) 8.0 L [place] % (Auto) 7.3 Eos % (Auto) 0.1 Baso % (Auto) 0.4 Neut # (Auto) 4.8 Lymph # (Auto) 0.5 L [place] # (Auto) 0.4 Eos # (Auto) 0.0 Baso # (Auto) 0.0 Neutrophils % (Manual) 87 H Lymphocytes % (Manual) 7 L Monocytes % (Manual) 6 Platelet Estimate Normal Poikilocytosis (manual Slight Anisocytosis (manual) Moderate Tear Drop Cells Slight Maud Cells Slight Sodium 145 Potassium 5.2 Chloride 108 H Carbon Dioxide 22 Anion Gap 19 BUN 19 Creatinine 1.5 Est GFR ( Amer) 55 Est GFR (Non-Af Amer) 46 Random Glucose 84 Calcium 8.5 L Total Bilirubin 1.3 AST 47 ALT 11 L D Alkaline Phosphatase 907 H Lactate Dehydrogenase 1052 H Total Protein 6.8 7.1 Albumin 3.6 Globulin 3.2 Albumin/Globulin Ratio 1.1 Assessment & Plan - Assessment and Plan (Free Text) Assessment: 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
[2018-01-25 16:03] LABS: BODY FLUID TYPE PERITONEAL/ASCITES
[2018-01-25 18:43] LABS: BF GROSS APPEARANCE CLEAR (CLEAR)
[2018-01-25 18:44] LABS: BODY FLUID MONO/MACROPHAGE 10 % (0-0); BODY FLUID TOTAL COUNT 100 (0-0)
[2018-01-26 00:06] VITALS: TEMP 97.5
--- NOTE | 2018-01-26 05:31 | CP.PCM.PN ---
Subjective - Date & Time of Evaluation Date of Evaluation: 01/25/18 Time of Evaluation: 19:00 - Subjective Subjective: pt seen and examined, no chest pian, also seen by cardiology, suggesting cardiac cath and life vest,however pt is refusing any intervention, pt is s/p paracentesis, possibly if stable discharge tommorow Objective - Vital Signs/Intake and Output Vital Signs (last 24 hours): Temp Pulse Resp BP Pulse Ox 97.5 F L 56 L 20 122/76 100 01/26/18 00:05 01/26/18 01:00 01/26/18 00:05 01/26/18 00:05 01/26/18 00:05 Intake and Output: 01/25/18 01/26/18 18:59 06:59 Intake Total 690 300 Output Total 560 1740 Balance 130 -1440 - Medications Medications: Current Medications Amiodarone HCl (Cordarone) 200 mg PO DAILY [facility] Last Admin: 01/25/18 10:06 Dose: 200 mg Dicyclomine HCl (Bentyl) 20 mg PO TID [facility] Last Admin: 01/25/18 18:24 Dose: 20 mg Famotidine (Pepcid) 40 mg PO DAILY [facility] Last Admin: 01/25/18 10:06 Dose: 40 mg Furosemide (Lasix) 40 mg IVP BID [facility] Last Admin: 01/25/18 18:24 Dose: 40 mg Heparin Sodium (Porcine) (Heparin) 5,000 units SC Q12 [facility] Last Admin: 01/24/18 22:15 Dose: 5,000 units Home Med (Patient's Own Medication) 4 tab PO DAILY [facility] Last Admin: 01/25/18 10:07 Dose: 4 tab Home Med (Patient's Own Medication) 1 tab PO DAILY [facility] Last Admin: 01/25/18 10:07 Dose: 1 tab Prednisone (Prednisone Tab) 5 mg PO BID [facility] Last Admin: 01/25/18 18:24 Dose: 5 mg Rosuvastatin Calcium (Crestor) 10 mg PO HS [facility] Last Admin: 01/25/18 21:29 Dose: 10 mg Tamsulosin HCl (Flomax) 0.4 mg PO DAILY [facility] Last Admin: 01/25/18 10:59 Dose: 0.4 mg - Labs Labs: 01/25/18 07:43 01/25/18 07:43 PT 14.9 SECONDS (9.7-12.2) H 01/24/18 11:15 INR 1.4 01/24/18 11:15 APTT 36 SECONDS (21-34) H 01/24/18 11:15 - Constitutional Appears: No Acute Distress - Head Exam Head Exam: ATRAUMATIC, NORMAL INSPECTION, NORMOCEPHALIC - Eye Exam Eye Exam: EOMI, Normal appearance, PERRL Pupil Exam: NORMAL ACCOMODATION, PERRL - Respiratory Exam Respiratory Exam: Decreased Breath Sounds, Rales, Rhonchi - Cardiovascular Exam Cardiovascular Exam: REGULAR RHYTHM, +S1, +S2. absent: Murmur Additional comments: s3 pos - GI/Abdominal Exam GI & Abdominal Exam: Distended, Normal Bowel Sounds - Rectal Exam Rectal Exam: Deferred - Neurological Exam Neurological Exam: Alert, Awake, CN II-XII Intact, Normal Gait, Oriented x3 - Psychiatric Exam Psychiatric exam: Normal Affect, Normal Mood Assessment and Plan (1) Abdominal distension Status: Acute (2) Anemia Status: Acute (3) Ascites Status: Acute (4) CHF (congestive heart failure) Status: Acute (5) HTN (hypertension) Status: Chronic (6) History of coronary artery disease Status: Chronic
[2018-01-26 06:35] LABS: BASO % 0.3 % (0.0-2.0); EOS % 0.2 % (0.0-4.0); HEMOGLOBIN 10.3 g/dL (12.0-18.0); LYMPH # 0.3 K/uL (1.0-4.3); LYMPH % 5.6 % (20.0-40.0); MEAN CELL VOLUME 92.6 fL (80.0-94.0); MEAN CORPUSCULAR HEMOGLOBIN 30.2 pg (27.0-31.0); MEAN CORPUSCULAR HGB CONC 32.6 g/dL (33.0-37.0); MEAN PLATELET VOLUME 10.3 fL (7.2-11.7); MONO # 0.5 K/uL (0.0-0.8); MONO % 8.7 % (0.0-10.0); NEUT # 4.9 K/uL (1.8-7.0); NEUT % 85.2 % (50.0-75.0); NRBC % 0.1 % (0.0-2.0); PLATELET COUNT 112 K/uL (130-400); RED CELL DISTRIBUTION WIDTH 20.8 % (11.5-14.5); WHITE BLOOD COUNT 5.8 K/uL (4.8-10.8)
[2018-01-26 06:56] LABS: ALB/GLOB RATIO 1.2 (1.0-2.1); ALBUMIN 3.1 g/dL (3.5-5.0)
[2018-01-26 07:54] VITALS: PULSE 58
[2018-01-26] MEDS: ZYTIGA 250 MG PO SCH (09:25)
[2018-01-26] MEDS: BICALUTAMIDE PO SCH (09:25)
[2018-01-26 09:27] VITALS: BP 117/64
[2018-01-26 10:08] LABS: BANDS 1 % (0-2); LYMPHOCYTE 4 % (20-40); MONOCYTE 4 % (0-10); MYELOCYTE 1 % (0-0); NEUTROPHIL 90 % (50-75); TOTAL CELLS COUNTED 100
[2018-01-26 10:09] LABS: ANISOCYTOSIS MODERATE; OVALOCYTES SLIGHT; PLATELET ESTIMATE SLIGHTLY DECREASED (NORMAL); POIKILOCYTOSIS SLIGHT; TEARDROP CELLS SLIGHT
--- NOTE | 2018-01-26 12:45 | CP.PCM.PN ---
Subjective - Date & Time of Evaluation Date of Evaluation: 01/26/18 Time of Evaluation: 12:41 - Subjective Subjective: PATIENT WAS ADMITTED DYSPNEA AND ASCITES AAOX3/ WALKING AROUND/ DENIES CHEST PAIN OR SOB NO SIGN OF DISTRESS NOTED Objective - Vital Signs/Intake and Output Vital Signs (last 24 hours): Temp Pulse Resp BP Pulse Ox 97.5 F L 58 L 20 117/64 100 01/26/18 00:05 01/26/18 07:50 01/26/18 00:05 01/26/18 09:26 01/26/18 00:05 Intake and Output: 01/26/18 01/26/18 06:59 18:59 Intake Total 300 Output Total 1740 Balance -1440 - Medications Medications: Current Medications Amiodarone HCl (Cordarone) 200 mg PO DAILY [facility] Last Admin: 01/26/18 09:25 Dose: 200 mg Dicyclomine HCl (Bentyl) 20 mg PO TID [facility] Last Admin: 01/26/18 09:46 Dose: 20 mg Famotidine (Pepcid) 40 mg PO DAILY [facility] Last Admin: 01/26/18 09:26 Dose: 40 mg Furosemide (Lasix) 40 mg IVP BID [facility] Last Admin: 01/26/18 09:26 Dose: 40 mg Heparin Sodium (Porcine) (Heparin) 5,000 units SC Q12 [facility] Last Admin: 01/24/18 22:15 Dose: 5,000 units Home Med (Patient's Own Medication) 4 tab PO DAILY [facility] Last Admin: 01/26/18 09:25 Dose: 4 tab Home Med (Patient's Own Medication) 1 tab PO DAILY [facility] Last Admin: 01/26/18 09:25 Dose: 1 tab Prednisone (Prednisone Tab) 5 mg PO BID [facility] Last Admin: 01/26/18 09:26 Dose: 5 mg Rosuvastatin Calcium (Crestor) 10 mg PO HS [facility] Last Admin: 01/25/18 21:29 Dose: 10 mg Tamsulosin HCl (Flomax) 0.4 mg PO DAILY [facility] Last Admin: 01/26/18 09:26 Dose: 0.4 mg - Labs Labs: 01/26/18 06:30 01/26/18 06:30 PT 14.9 SECONDS (9.7-12.2) H 01/24/18 11:15 INR 1.4 01/24/18 11:15 APTT 36 SECONDS (21-34) H 01/24/18 11:15 Assessment and Plan - Assessment and Plan (Free Text) Assessment: PATIENT SEEN AND EXAMINED AT THE BEDSIDE LUNG SOUND CLEAR KAROL ECHO SHOW EF IS 15 % PATIENT DECLINE INTERVENTION PARACENTESIS DONE 10 L REMOVE AND PATIENT ABD IS SOFT DISTENDED DISCUSS WITH DR FIELD AND CLEAR PATIENT FOR DC FOLLOW UP WITH DR FIELD AT HIS OFFICE IN 1 WEEK ---CALL FOR APPOINTMENT FOLLOW UP WITH DR JONES OR YOUR HAZARDOUS MATERIALS WASTE TECHNICIAN IN 1 WEEK ---CALL FOR APPOINTMENT PATIENT REFUSE LIFE VEST AND CARDIAC CATH THIS ADMISSION CONTINUE ALL YOUR HOME MEDICATION PUT PATIENT PHYSICAL THERAPY ACTIVITY TOLERATED CALL DR FIELD OR GO TO THE EMERGENCY ROOM IF SYMPTOMS RETURN OR WORSENING DISCUSS WITH PATIENT WHO AGREE AND VERBALIZED UNDERSTANDING
--- NOTE | 2018-01-26 13:34 | US ---
Date of Procedure: 01/25/2018 PROCEDURE: Ultrasound-guided paracentesis, CPT 62395 Medications: 7 cc 1% Lidocaine HISTORY: Ascites, abdominal pain, cirrhosis TECHNIQUE: Following informed consent , the patient was placed supine on the stretcher and the site was marked. A limited abdominal ultrasound was performed that showed a large amount of intra-abdominal fluid. Procedural time out was called and the Pt's abdomen was marked and prepped and draped in the usual sterile fashion. Ultrasound-guided large volume paracentesis performed. A total of 8 liters of straw colored fluid was removed without complication. IMPRESSION: Ultrasound-guided large volume paracentesis.
--- NOTE | 2018-01-26 13:52 | CARD ---
APPROVED REPORT EKG Measurement Heart [id number] [place] 232P [id number] <Conclusion> Sinus rhythm with marked sinus arrhythmia with 1st degree AV block Low voltage QRS Possible Anterolateral infarct, age undetermined Abnormal ECG
--- NOTE | 2018-01-27 05:02 | CP.PCM.DIS ---
Provider - Provider Date of Admission: 01/24/18 12:34 Attending physician: Gregory Thrasher MD Time Spent in preparation of Discharge (in minutes): 34 Hospital Course - Lab Results Lab Results: Micro Results 01/25/18 15:23 Other: Please Indicate Gram Stain - Final Most Recent Lab Values WBC 5.8 K/uL (4.8-10.8) 01/26/18 06:30 RBC 3.40 Mil/uL (4.40-5.90) L 01/26/18 06:30 Hgb 10.3 g/dL (12.0-18.0) L 01/26/18 06:30 Hct 31.5 % (35.0-51.0) L 01/26/18 06:30 MCV 92.6 fL (80.0-94.0) 01/26/18 06:30 MCH 30.2 pg (27.0-31.0) 01/26/18 06:30 MCHC 32.6 g/dL (33.0-37.0) L 01/26/18 06:30 RDW 20.8 % (11.5-14.5) H 01/26/18 06:30 Plt Count 112 K/uL (130-400) L 01/26/18 06:30 MPV 10.3 fL (7.2-11.7) 01/26/18 06:30 Neut % (Auto) 85.2 % (50.0-75.0) H 01/26/18 06:30 Lymph % (Auto) 5.6 % (20.0-40.0) L 01/26/18 06:30 [place] % (Auto) 8.7 % (0.0-10.0) 01/26/18 06:30 Eos % (Auto) 0.2 % (0.0-4.0) 01/26/18 06:30 Baso % (Auto) 0.3 % (0.0-2.0) 01/26/18 06:30 Neut # (Auto) 4.9 K/uL (1.8-7.0) 01/26/18 06:30 Lymph # (Auto) 0.3 K/uL (1.0-4.3) L 01/26/18 06:30 [place] # (Auto) 0.5 K/uL (0.0-0.8) 01/26/18 06:30 Eos # (Auto) 0.0 K/uL (0.0-0.7) 01/26/18 06:30 Baso # (Auto) 0.0 K/uL (0.0-0.2) 01/26/18 06:30 Neutrophils % (Manual) 90 % (50-75) H 01/26/18 06:30 Band Neutrophils % 1 % (0-2) 01/26/18 06:30 Lymphocytes % (Manual) 4 % (20-40) L 01/26/18 06:30 Monocytes % (Manual) 4 % (0-10) 01/26/18 06:30 Myelocytes % 1 % (0-0) H 01/26/18 06:30 Platelet Estimate Slightly decreased (NORMAL) L 01/26/18 06:30 Poikilocytosis (manual Slight 01/26/18 06:30 Anisocytosis (manual) Moderate 01/26/18 06:30 Tear Drop Cells Slight 01/26/18 06:30 Ovalocytes Slight 01/26/18 06:30 Keira Cells Slight 01/25/18 07:43 PT 14.9 SECONDS (9.7-12.2) H 01/24/18 11:15 INR 1.4 01/24/18 11:15 APTT 36 SECONDS (21-34) H 01/24/18 11:15 Sodium 140 mmol/L (132-148) 01/26/18 06:30 Potassium 5.0 mmol/L (3.6-5.2) 01/26/18 06:30 Chloride 106 mmol/L (98-107) 01/26/18 06:30 Carbon Dioxide 23 mmol/L (22-30) 01/26/18 06:30 Anion Gap 15 (10-20) 01/26/18 06:30 BUN 21 mg/dL (9-20) H 01/26/18 06:30 Creatinine 1.7 mg/dL (0.8-1.5) H 01/26/18 06:30 Est GFR ( Amer) 48 01/26/18 06:30 Est GFR (Non-Af Amer) 39 01/26/18 06:30 Random Glucose 79 mg/dL (75-110) 01/26/18 06:30 Calcium 8.0 mg/dl (8.6-10.4) L 01/26/18 06:30 Total Bilirubin 0.8 mg/dL (0.2-1.3) 01/26/18 06:30 AST 39 U/L (17-59) 01/26/18 06:30 ALT 14 U/L (21-72) L D 01/26/18 06:30 Alkaline Phosphatase 677 U/L (38-126) H D 01/26/18 06:30 Lactate Dehydrogenase 1052 U/L (313-618) H 01/25/18 11:47 Total Creatine Kinase 236 U/L (55-170) H 01/24/18 11:15 CK-MB (Mass) 2.03 ng/mL (0.0-3.38) 01/24/18 11:15 Troponin I 0.0560 ng/mL (0.00-0.120) 01/24/18 11:15 NT-Pro-B Natriuret Pep 04974 pg/mL (0-900) H 01/24/18 11:15 Total Protein 5.7 g/dL (6.3-8.3) L 01/26/18 06:30 Albumin 3.1 g/dL (3.5-5.0) L 01/26/18 06:30 Globulin 2.6 gm/dL (2.2-3.9) 01/26/18 06:30 Albumin/Globulin Ratio 1.2 (1.0-2.1) 01/26/18 06:30 Fluid Source Peritoneal/ascites 01/25/18 15:56 Fluid Appearance Clear (CLEAR) 01/25/18 15:56 Fluid WBC 45.0 /mm3 (0.0-300.0) 01/25/18 15:56 Fluid RBC 50.0 /mm3 (0.0-0.0) H 01/25/18 15:56 Fluid Tot Cell Count 100 (0-0) H 01/25/18 15:56 Fluid Neutrophils 25.0 % (0-0) H 01/25/18 15:56 Fluid Lymphocytes 65.0 % (0-0) H 01/25/18 15:56 Fld Monocyte/Macrophag 10 % (0-0) H 01/25/18 15:56 Fluid Comment 05/17/18 15:56 - Hospital Course Hospital Course: PATIENT SEEN AND EXAMINED AT THE BEDSIDE ,IS FOR DISCHARGE S/P PARACENTESIS, FEELING BETTER LUNG SOUND CLEAR KAROL ECHO SHOW EF IS 15 % PATIENT DECLINE INTERVENTION PARACENTESIS DONE 10 L REMOVE AND PATIENT ABD IS SOFT DISTENDED FOLLOW UP WITH OUTNANOTEINMary IN 1 WEEK ---CALL FOR APPOINTMENT FOLLOW UP WITH DR JEFFRIES OR YOUR TRAFFIC AGENT IN 1 WEEK ---CALL FOR APPOINTMENT PATIENT REFUSE LIFE VEST AND CARDIAC CATH THIS ADMISSION CONTINUE ALL YOUR HOME MEDICATION PUT PATIENT PHYSICAL THERAPY ACTIVITY TOLERATED CALL DR THRASHER OR GO TO THE EMERGENCY ROOM IF SYMPTOMS RETURN OR WORSENING DISCUSS WITH PATIENT WHO AGREE AND VERBALIZED UNDERSTANDING Discharge Exam - Eye Exam Eye Exam: EOMI, Normal appearance, PERRL Pupil Exam: NORMAL ACCOMODATION, PERRL - ENT Exam ENT Exam: Mucous Membranes Moist - Respiratory Exam Respiratory Exam: Decreased Breath Sounds, Rales, Rhonchi - Cardiovascular Exam Cardiovascular Exam: +S1, +S2 Additional comments: S3 POSITIVE - GI/Abdominal Exam GI & Abdominal Exam: Normal Bowel Sounds Discharge Plan - Follow Up Plan Condition: GOOD Disposition: HOME/ ROUTINE Instructions: Heart Failure, Adult, Atrial Fibrillation, Fluid in the Belly ( Ascites) (DC) Additional Instructions: FOLLOW UP WITH DR THRASHER AT HIS OFFICE IN 1 WEEK ---CALL FOR APPOINTMENT FOLLOW UP WITH DR JEFFRIES OR YOUR TRAFFIC AGENT IN 1 WEEK ---CALL FOR APPOINTMENT CONTINUE ALL YOUR HOME MEDICATION ACTIVITY TOLERATED CALL DR THRASHER OR GO TO THE EMERGENCY ROOM IF SYMPTOMS RETURN OR WORSENING Referrals: Cleveland Jeffries MD [Staff Provider] - Gregory Thrasher MD [Staff Provider] -
[2018-01-28 17:47] LABS: TOTAL PROTEIN PERITONEAL FLUID 3.2 g/dL
--- NOTE | 2018-01-29 09:46 | PCM.HF ---
Heart Failure Core Measure - Heart Failure Ejection Fraction: Less Than 40 % WINTER Inhibitor Prescribed: No Contraindication/Reason for not providing: CRF Beta-Mariana Prescribed: None Contraindication/Reason for not providing: SINUS ENRIQUE Angiotensin II Receptor Mariana Prescribed: No Contraindication/Reason for not providing: CRF AnticoagulationTherapy for Atrial Fibrillation/Atrialflutter: No Contraindication/Reason for not providing: NO HS OF AFIB Aldosterone Antagonist Prescribed: No Contraindication/Reason for not providing: ON AMIODARONE Hydralazine Nitrate Prescribed: No Contraindication/Reason for not providing: ON AMIODARONE Implantable Cardioverter Defibrillator Therapy: No Contraindication/Reason for not providing: OUT PATIENT F/U WITH PMD Cardiac Resynchronization Therapy Prescribed: No Contraindication/Reason for not providing: NOT INDICATED - Follow up Will be discharged to: Home Follow Up Date (must be within 7 days from discharge): 01/30/18 Follow Up Time: 09:00
== END 2018-01-26 14:22 | disposition home or self-care (01) | DRG 948 ==
LOC: C.ER 10:10 → C.9E 12:34 → C.5S 13:01
PROVIDERS: ADMIT Internal Medicine; ATTEND Internal Medicine
PROC: 0W9G3ZZ Drainage of Peritoneal Cavity, Percutaneous Approach (ICD-10-PCS; principal; 2018-01-25)
DX: R18.8 Other ascites (principal); I42.9 Cardiomyopathy, unspecified; I25.10 Atherosclerotic heart disease of native coronary artery without angina pectoris; I11.0 Hypertensive heart disease with heart failure; D64.9 Anemia, unspecified; Z85.46 Personal history of malignant neoplasm of prostate; Z87.891 Personal history of nicotine dependence; K74.60 Unspecified cirrhosis of liver; B19.20 Unspecified viral hepatitis C without hepatic coma; I50.810 Right heart failure, unspecified

== ENCOUNTER 2018-09-12 09:29 | Inpatient (IN) | payer BC, MEDICARE ==
[2018-09-12 09:29] VITALS: BMI 23.7
[2018-09-12 12:10] LABS: PROTHROMBIN TIME 13.7 SECONDS (9.7-12.2)
[2018-09-12 12:11] LABS: INR 1.3
--- NOTE | 2018-09-12 12:15 | RAD ---
HISTORY: admission COMPARISON: Chest x-ray performed 01/24/18, CT of the chest, abdomen, and pelvis with contrast performed 08/24/16, nuclear medicine bone scan performed 08/24/16 TECHNIQUE: Chest, one view. FINDINGS: Examination markedly limited by habitus and hypoinflation. Severe cardiomegaly with CTR approximately 23/31.7. Mild patchy atelectasis or infiltrate at the medial right lower lobe. No pleural effusion or pneumothorax. Diffusely abnormal appearance of the included right humerus with irregularly thickened cortex and suspect sclerotic lesions involving bilateral humeri (limited visualization of the left humeral head). Elevation of the right hemidiaphragm. IMPRESSION: Severe cardiomegaly with CTR approximately 23/31.7. Mild patchy atelectasis or infiltrate at the medial right lower lobe. Diffusely abnormal appearance of the included right humerus with irregularly thickened cortex and suspect sclerotic lesions involving bilateral humeri (limited visualization of the left humeral head). Further evaluation with nuclear medicine bone scan may be considered.
--- NOTE | 2018-09-12 13:00 | C.PDOC ---
History Of Present Illness 78 years old male is sent to ED by Dr. Haro (PMD) for evaluation of abdominal distension and ascites. Patient states PMD stated that patient needs paracentesis. Patient also states last paracentesis was in november. Denies shortness of breath, chest pain, or fever. Patient reports he is compliant with his dietetics. Time Seen by Provider: 09/12/18 09:49 Chief Complaint (Nursing): Medical Clearance History Per: Patient History/Exam Limitations: no limitations Onset/Duration Of Symptoms: Hrs Current Symptoms Are (Timing): Still Present Recent travel outside of the [place]: No Past Medical History Reviewed: Historical Data, Nursing Documentation, Vital Signs Vital Signs: Last Vital Signs Temp 97.3 F L 09/12/18 09:38 Pulse 60 09/12/18 10:05 Resp 19 09/12/18 10:06 BP 121/75 09/12/18 10:05 Pulse Ox 99 09/12/18 10:06 - Medical History PMH: Arthritis (KNEE), CAD, CHF, Gastritis, Gall Bladder Disease, HTN, Malignancy (Prostate) - [facility] Procedures DRAINAGE OF PERITONEAL CAVITY, PERCUTANEOUS APPROACH (01/24/18) DRAINAGE OF PERITONEAL CAVITY, PERCUTANEOUS APPROACH, DIAGN (02/12/17) ULTRASONOGRAPHY OF ABDOMEN (09/12/17) Family History: States: Unknown Family Hx - Social History Hx Tobacco Use: No Hx Alcohol Use: Yes (Ex drinker) Hx Substance Use: No - Immunization History Hx Tetanus Toxoid Vaccination: (unk) Hx Influenza Vaccination: Yes Hx Pneumococcal Vaccination: (unk) Review Of Systems Constitutional: Negative for: Fever, Chills Gastrointestinal: Positive for: Other (Abdominal distention and ascites). Negative for: Nausea, Vomiting, Diarrhea Skin: Negative for: Rash Neurological: Negative for: Weakness, Numbness Physical Exam - Physical Exam Appears: Non-toxic, No Acute Distress Skin: Normal Color, Warm, Dry, No Rash Head: Atraumatic, Normacephalic Eye(s): bilateral: Normal Inspection, PERRL, EOMI Oral Mucosa: Moist Neck: Normal ROM, Supple Chest: Symmetrical, No Tenderness Cardiovascular: Rhythm Regular Respiratory: Normal Breath Sounds, No Rales, No Rhonchi, No Wheezing Gastrointestinal/Abdominal: Soft, No Tenderness, Distention, Hernia (Umbilical hernia. Reducible. Non-tender. ), Ascites Extremity: Normal ROM Extremity: Bilateral: Atraumatic, Normal Color And Temperature, Normal ROM Neurological/Psych: Oriented x3, Normal Speech ED Course And Treatment O2 Sat by Pulse Oximetry: 99 (RA) Pulse Ox Interpretation: Normal Progress Note: Ordered EKG, blood work, and CXR. Disposition - Disposition - Scribe Statement The provider has reviewed the documentation as recorded by the Scribe Sam Marinelli All medical record entries made by the Scribe were at my direction and personally dictated by me. I have reviewed the chart and agree that the record accurately reflects my personal performance of the history, physical exam, medical decision making, and the department course for this patient. I have also personally directed, reviewed, and agree with the discharge instructions and disposition.
[2018-09-12 14:09] VITALS: RESP 20
[2018-09-12 15:10] LABS: HEMOGLOBIN 10.3 g/dL (12.0-18.0); MEAN CORPUSCULAR HEMOGLOBIN 32.3 pg (27.0-31.0); MEAN CORPUSCULAR HGB CONC 32.5 g/dL (33.0-37.0); RBC 3.2 Mil/uL (4.40-5.90); RED CELL DISTRIBUTION WIDTH 19.9 % (11.5-14.5); WHITE BLOOD COUNT 4.6 K/uL (4.8-10.8)
[2018-09-12 15:11] LABS: BASO % 0.5 % (0.0-2.0); EOS % 0.5 % (0.0-4.0); LYMPH # 0.5 K/uL (1.0-4.3); MEAN CELL VOLUME 99.5 fL (80.0-94.0); MEAN PLATELET VOLUME 10.6 fL (7.2-11.7); MONO # 0.4 K/uL (0.0-0.8); MONO % 8.1 % (0.0-10.0); NEUT # 3.7 K/uL (1.8-7.0); NEUT % 80.9 % (50.0-75.0); NRBC % 0.1 % (0.0-2.0)
[2018-09-12 15:12] LABS: ALB/GLOB RATIO 1.4 (1.0-2.1); ALBUMIN 3.6 g/dL (3.5-5.0); CALCIUM 8.6 mg/dl (8.6-10.4)
--- NOTE | 2018-09-12 21:59 | CP.PCM.CON ---
History of Present Illness - History of Present Illness History of Present Illness: CC: Cardiac Evaluation 78 years old male is sent to ED by Dr. Haro (PMD) for evaluation of abdominal distension and ascites. Patient states PMD stated that patient needs paracentesis. Patient also states last paracentesis was in november. Denies shortness of breath, chest pain, or fever. Patient reports he is compliant with his dietetics. Chief Complaint (Nursing): Abdominal distention History Per: Patient History/Exam Limitations: no limitations Onset/Duration Of Symptoms: Hrs Current Symptoms Are (Timing): Still Present Recent travel outside of the [place]: No Past Medical History Reviewed: Historical Data, Nursing Documentation, Vital Signs Vital Signs: Last Vital Signs Temp 97.3 F L 09/12/18 09:38 Pulse 60 09/12/18 10:05 Resp 19 09/12/18 10:06 BP 121/75 09/12/18 10:05 Pulse Ox 99 09/12/18 10:06 - Medical History PMH: Arthritis (KNEE), CAD, CHF, Gastritis, Gall Bladder Disease, HTN, Malignancy (Prostate) - [facility] Procedures DRAINAGE OF PERITONEAL CAVITY, PERCUTANEOUS APPROACH (01/24/18) DRAINAGE OF PERITONEAL CAVITY, PERCUTANEOUS APPROACH, DIAGN (02/12/17) ULTRASONOGRAPHY OF ABDOMEN (09/12/17) Family History: States: Unknown Family Hx - Social History Hx Tobacco Use: No Hx Alcohol Use: Yes (Ex drinker) Hx Substance Use: No - Immunization History Hx Tetanus Toxoid Vaccination: (unk) Hx Influenza Vaccination: Yes Hx Pneumococcal Vaccination: (unk) Review Of Systems Constitutional: Negative for: Fever, Chills Gastrointestinal: Positive for: Other (Abdominal distention and ascites). Negative for: Nausea, Vomiting, Diarrhea Skin: Negative for: Rash Neurological: Negative for: Weakness, Numbness Physical Exam - Physical Exam Appears: Non-toxic, No Acute Distress Skin: Normal Color, Warm, Dry, No Rash Head: Atraumatic, Normacephalic Eye(s): bilateral: Normal Inspection, PERRL, EOMI Oral Mucosa: Moist Neck: Normal ROM, Supple Chest: Symmetrical, No Tenderness Cardiovascular: Rhythm Regular Respiratory: Normal Breath Sounds, No Rales, No Rhonchi, No Wheezing Gastrointestinal/Abdominal: Soft, No Tenderness, Distention, Hernia (Umbilical hernia. Reducible. Non-tender. ), Ascites Extremity: Normal ROM Extremity: Bilateral: Atraumatic, Normal Color And Temperature, Normal ROM Neurological/Psych: Oriented x3, Normal Speech Past Patient History - Infectious Disease Hx of Infectious Diseases: None - Past Medical History & Family History Past Medical History?: Yes - Past Social History Smoking Status: Former Smoker - CARDIAC Hx Congestive Heart Failure: Yes Hx Hypertension: Yes - PULMONARY Hx Respiratory Disorders: No - NEUROLOGICAL Hx Neurological Disorder: No - HEENT Hx HEENT Problems: No - RENAL Hx Chronic Kidney Disease: No - ENDOCRINE/METABOLIC Hx Endocrine Disorders: No - HEMATOLOGICAL/ONCOLOGICAL Hx Blood Disorders: Yes Hx Cancer: Yes (PROSTATE) Hx Chemotherapy: Yes - INTEGUMENTARY Hx Dermatological Problems: No - MUSCULOSKELETAL/RHEUMATOLOGICAL Hx Arthritis: Yes (KNEE) Hx Falls: No - GASTROINTESTINAL Hx Gall Bladder Disease: Yes Hx Gastritis: Yes - GENITOURINARY/GYNECOLOGICAL Hx Genitourinary Disorders: No - PSYCHIATRIC Hx Substance Use: No - SURGICAL HISTORY Hx Surgeries: Yes Other/Comment: hernia repair 03/20/17 - ANESTHESIA Hx Anesthesia: Yes Hx Anesthesia Reactions: No Hx Malignant Hyperthermia: No Meds Allergies/Adverse Reactions: Allergies Allergy/AdvReac Type Severity Reaction Status Date / Time No Known Allergies Allergy Verified 09/12/18 09:41 - Medications Medications: Current Medications Amiodarone HCl (Cordarone) 200 mg PO DAILY [facility] Dicyclomine HCl (Bentyl) 20 mg PO TID [facility] Last Admin: 09/12/18 18:00 Dose: Not Given Famotidine (Pepcid) 20 mg PO BID [facility] Furosemide (Lasix) 20 mg PO DAILY [facility] Last Admin: 09/12/18 16:30 Dose: 20 mg Home Med (Bicalutamide [Casodex]) 50 mg PO DAILY [facility] Levothyroxine Sodium (Synthroid) 50 mcg PO DAILY@0630 [facility] Prednisone (Prednisone Tab) 5 mg PO BID [facility] Last Admin: 09/12/18 18:00 Dose: Not Given Rosuvastatin Calcium (Crestor) 5 mg PO HS [facility] Tamsulosin HCl (Flomax) 0.4 mg PO DAILY [facility] Tramadol HCl (Ultram) 50 mg PO Q8 PRN PRN Reason: Pain, moderate (4-7) Results - Vital Signs Recent Vital Signs: Last Vital Signs Temp 97.5 F L 09/12/18 15:49 Pulse 65 09/12/18 15:49 Resp 20 09/12/18 15:49 BP 132/80 09/12/18 16:30 Pulse Ox 95 09/12/18 15:49 - Labs Result Diagrams: 09/12/18 11:30 09/12/18 15:11 Labs: Laboratory Results - last 24 hr 09/12/18 09/12/18 09/12/18 10:47 11:30 15:11 WBC 4.6 L RBC 3.20 L Hgb 10.3 L Hct 31.8 L MCV 99.5 H D MCH 32.3 H MCHC 32.5 L RDW 19.9 H Plt Count 108 L MPV 10.6 Neut % (Auto) 80.9 H Lymph % (Auto) 10.0 L [place] % (Auto) 8.1 Eos % (Auto) 0.5 Baso % (Auto) 0.5 Neut # (Auto) 3.7 Lymph # (Auto) 0.5 L [place] # (Auto) 0.4 Eos # (Auto) 0.0 Baso # (Auto) 0.0 Differential Comment PT 13.7 H INR 1.3 APTT 40 H Sodium 140 Potassium 4.1 Chloride 110 H Carbon Dioxide 21 L Anion Gap 13 BUN 28 H Creatinine 1.9 H Est GFR ( Amer) 42 Est GFR (Non-Af Amer) 35 Random Glucose 76 Calcium 8.6 Total Bilirubin 1.4 H AST 43 ALT 15 L Alkaline Phosphatase 530 H D Total Protein 6.2 L Albumin 3.6 Globulin 2.6 Albumin/Globulin Ratio 1.4 Assessment & Plan - Assessment and Plan (Free Text) Assessment: Hx of Cath ... , Non Obstructive CADF Hx of non ischemic CMP, refused AICD Hx of Ascites/Paracentasis HTN
--- NOTE | 2018-09-12 23:04 | CP.PCM.HP ---
Past Patient History - Infectious Disease Hx of Infectious Diseases: None - Past Medical History & Family History Past Medical History?: Yes - Past Social History Smoking Status: Former Smoker - CARDIAC Hx Congestive Heart Failure: Yes Hx Hypertension: Yes - PULMONARY Hx Respiratory Disorders: No - NEUROLOGICAL Hx Neurological Disorder: No - HEENT Hx HEENT Problems: No - RENAL Hx Chronic Kidney Disease: No - ENDOCRINE/METABOLIC Hx Endocrine Disorders: No - HEMATOLOGICAL/ONCOLOGICAL Hx Blood Disorders: Yes Hx Cancer: Yes (PROSTATE) Hx Chemotherapy: Yes - INTEGUMENTARY Hx Dermatological Problems: No - MUSCULOSKELETAL/RHEUMATOLOGICAL Hx Arthritis: Yes (KNEE) Hx Falls: No - GASTROINTESTINAL Hx Gall Bladder Disease: Yes Hx Gastritis: Yes - GENITOURINARY/GYNECOLOGICAL Hx Genitourinary Disorders: No - PSYCHIATRIC Hx Substance Use: No - SURGICAL HISTORY Hx Surgeries: Yes Other/Comment: hernia repair 03/20/17 - ANESTHESIA Hx Anesthesia: Yes Hx Anesthesia Reactions: No Hx Malignant Hyperthermia: No Meds Allergies/Adverse Reactions: Allergies Allergy/AdvReac Type Severity Reaction Status Date / Time No Known Allergies Allergy Verified 09/12/18 09:41 Results - Vital Signs Recent Vital Signs: Last Vital Signs Temp 97.5 F L 09/12/18 15:49 Pulse 65 09/12/18 15:49 Resp 20 09/12/18 15:49 BP 132/80 09/12/18 16:30 Pulse Ox 95 09/12/18 15:49 - Labs Result Diagrams: 09/12/18 11:30 09/12/18 15:11 Labs: Laboratory Results - last 24 hr 09/12/18 09/12/18 09/12/18 10:47 11:30 15:11 WBC 4.6 L RBC 3.20 L Hgb 10.3 L Hct 31.8 L MCV 99.5 H D MCH 32.3 H MCHC 32.5 L RDW 19.9 H Plt Count 108 L MPV 10.6 Neut % (Auto) 80.9 H Lymph % (Auto) 10.0 L [place] % (Auto) 8.1 Eos % (Auto) 0.5 Baso % (Auto) 0.5 Neut # (Auto) 3.7 Lymph # (Auto) 0.5 L [place] # (Auto) 0.4 Eos # (Auto) 0.0 Baso # (Auto) 0.0 Differential Comment PT 13.7 H INR 1.3 APTT 40 H Sodium 140 Potassium 4.1 Chloride 110 H Carbon Dioxide 21 L Anion Gap 13 BUN 28 H Creatinine 1.9 H Est GFR ( Amer) 42 Est GFR (Non-Af Amer) 35 Random Glucose 76 Calcium 8.6 Total Bilirubin 1.4 H AST 43 ALT 15 L Alkaline Phosphatase 530 H D Total Protein 6.2 L Albumin 3.6 Globulin 2.6 Albumin/Globulin Ratio 1.4
--- NOTE | 2018-09-13 04:08 | HP ---
CHIEF COMPLAINT: Abdominal distention, started a month ago, worse now. HISTORY OF PRESENT ILLNESS: This is a 78-year-old male who is well known to me with a history of prostate cancer, cirrhosis of liver with recurrent ascites who was compliant with his diet, medications and followup, being followed up by his PMD in [place]. The patient is weak, poor historian. He has multiple medical problems including cirrhosis of liver, congestive heart failure. He also has a history of cardiac arrhythmia, BPH. He also has malignant neoplasm, and he is on chemotherapy. He is compliant with his diet, medications, and followup. The patient was referred by private medical doctor because of worsening ascites, difficulty walking, dyspnea on exertion, tiredness, fatigue, easy bruisability, leg edema upon standing. The patient was evaluated by his PMD and referred to ER for paracentesis. The patient denies any fevers or chills. The patient denies any worst abdominal pain. He has nausea. No vomiting. He has generalized weakness, tiredness, anorexia, malaise, and fatigue. He denies any history of polyuria, polydipsia, polyphagia, . He has decreased urination. He denies any hesitancy or urgency. He has tingling and numbness in the feet. He denies any history of trauma or fall. There is no history of joint pain or hip pain. He has increasing ascites. The patient has prostate cancer and he is compliant with his medication. ALLERGIES: UNKNOWN. CURRENT MEDICATIONS: Zocor, Zantac, amiodarone, Flomax, Synthroid, Bentyl, Casodex, tramadol, Lasix, Zytiga, and prednisolone. SOCIAL HISTORY: He is ex-alcoholic, ex-EtOH user, ex-smoker. PAST MEDICAL HISTORY: 1. 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 2. Pancreatic cancer, stage IV, metastatic, on chemotherapy. PHYSICAL EXAMINATION: GENERAL: An elderly male in distress with ascites. VITAL SIGNS: Blood pressure 122/68, pulse 62, respiratory rate 20, temperature 97.5. SKIN: The patient has chronic changes in the lower extremities. HEENT: Atraumatic and normocephalic. Positive pallor. Negative jaundice. Extraocular movements are intact. NECK: Supple. No JVD. No lymph nodes. Using accessory muscles. LUNGS: Bilateral decreased air entry. No rales. No rhonchi. CARDIOVASCULAR SYSTEM: PMI not localized. S1 and S2 plus S3 positive. A 2/6 ejection systolic murmur at the aortic area. ABDOMEN: Massive ascites with fluid thrill positive with prominent veins on anterior abdominal wall. RECTAL: Positive hemorrhoids, enlarged prostate. EXTREMITIES: No clubbing or cyanosis. Has +2 pitting edema, chronic changes in the leg. The patient has absent dorsalis pedis and posterior tibial, bilateral. CENTRAL NERVOUS SYSTEM: Awake, alert, and oriented x3. Cranial nerves II through XII are normal. Power 5/5 x4. Plantar's are downgoing. ASSESSMENT: 1. 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 2. Prostate cancer. 3. Hypertension. 4. Congestive heart failure. 5. Anemia of chronic disease. PLAN: Admit. Detailed orders written. Seen and examined. Gregory Thrasher MD
[2018-09-13] MEDS: Levothyroxine 50 MCG TAB PO SCH (05:45)
[2018-09-13] MEDS ORDERED: Lidocaine 2% MPF (5 ml) Inj ONE (09:32)
--- NOTE | 2018-09-13 11:06 | PCM.SURG1 ---
Surgeon's Initial Post Op Note - Surgeon's Notes Surgeon: Bijan Chaparro MD Hospice Patient Care Secretary: NONE Type of Anesthesia: Local Pre-Operative Diagnosis: Ascites, cirrhosis Operative Findings: US showed large amount of ascites Post-Operative Diagnosis: Ascites, cirrhosis Operation Performed: US guided paracentesis Specimen/Specimens Removed: 8 liters of straw colored fluid Estimated Blood Loss: EBL {In ML}: 0 Blood Products Given: N/A Drains Used: No Drains Post-Op Condition: Fair Date of Surgery/Procedure: 09/13/18 Time of Surgery/Procedure: 11:10
--- NOTE | 2018-09-13 12:02 | US ---
Date of Procedure: 09/13/2018 PROCEDURE: Ultrasound-guided paracentesis, CPT 25036 Medications: 7 cc 1% Lidocaine HISTORY: Ascites, abdominal pain, cirrhosis TECHNIQUE: Following informed consent , the patient was placed supine on the stretcher and the site was marked. A limited abdominal ultrasound was performed that showed a large amount of intra-abdominal fluid. Procedural time out was called and the Pt's abdomen was marked and prepped and draped in the usual sterile fashion. Ultrasound-guided large volume paracentesis performed. A total of 8 liters of straw colored fluid was removed without complication. IMPRESSION: Ultrasound-guided large volume paracentesis.
--- NOTE | 2018-09-13 14:45 | PN ---
DATE: 09/13/2018 LOCATION: 369, bed A. SUBJECTIVE: This 78-year-old male, seen and examined initially for GI consultation on 09/12/2018 as requested by the admitting MD, reexamined again today post reported abdominal paracentesis with removal of 8 liters of straw-colored ascitic fluid done by the IR staff. LABORATORY DATA: Most recent lab results showed hemoglobin of 10.3, hematocrit 31.8, low thrombocytopenia of 108 and low white blood cells of 4.6 indicative of pancytopenia, with CO2 content of 21, total bilirubin 1.24, alkaline phosphatase 560. PHYSICAL EXAMINATION: GENERAL: A 78-year-old male, appeared to be awake, alert, oriented post abdominal paracentesis, afebrile with pulse of 64, respiratory 20 to 22, blood pressure of 124/72. HEENT: Showed pale dry oral mucoid membrane. Bilateral icteric sclerae mildly. LUNGS: Few scattered crepitation. Decreased air entry at bases. HEART: Positive S1 and S2. ABDOMEN: Soft with mild generalized tenderness. No mass or organomegaly. No rebound tenderness or guarding. Less abdominal distention with less ascites noted post abdominal paracentesis. EXTREMITIES: With mild lower extremity edematous changes. No clubbing or cyanosis. IMPRESSION: 1. Liver cirrhosis with portal hypertension and ascites, with status post abdominal paracentesis. 2. Re-exacerbation of peptic ulcer disease. 3. Known history of prostatic carcinoma, hypertension, congestive heart failure with coronary artery disease. 4. Osteoarthritis, especially bilateral knees. 5. Pancytopenia, secondary to above. SUGGESTIONS: 1. Agree with your plan. 2. Guaiac all the stools every day x3. 3. Cancer markers including alpha-fetoprotein and CEA. 4. Further recommendation to follow. Halle Tran MD
[2018-09-13 17:44] LABS: INR 1.3; PROTHROMBIN TIME 14.3 SECONDS (9.7-12.2)
[2018-09-13] MEDS ORDERED: Albumin Human 25% (12.5 gm/50 ml) IV SCH (18:00)
[2018-09-13] MEDS: Albumin Human 25% (12.5 gm/50 ml) IV SCH ×2 (18:10→23:48)
--- NOTE | 2018-09-13 18:18 | CP.PCM.CON ---
History of Present Illness - History of Present Illness History of Present Illness: Pulmonology consult- dyspnea 78 year old male with pmh CAD, CHF, HTN, Prostate CA, cirrhosis, hypothyroidism, gastritis, gallbladder disease, and arthritis of the knee who was referred to ED by PMD Dr. Haro for evaluation of abdominal distension and ascites with need for paracentesis. Last paracentesis was in November 2017. On arrival and prior to paracentesis patient had SOB and cough. At this time denies fever, chills, sob, CP, cough. Medications- Prednisone 5mg BID, simvastatin 20mg, ranitidine 300mg, amiodarone 200mg, Lasix 20mg, Flomax 0.4mg, toradol 50mg, bentyl 20mg TID, synthroid 50mcg, zytiga 250mg, casodex 50mg PMH- as above PSH- cardiac cath social- former smoker, former ETOH, quit both in 1977. No drug use. 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 No pets. No home O2 use. Patient seen and examined at bedside, no acute distress. Afebrile, 95-99% SpO2 on room air clear to auscultation bilaterally WBC 4.6, Cl 110, CO2 21 CXR- severe cardiomegaly, mild patchy atelectasis/infiltrate at the medial right lower lobe s/p ultrasound guided paracentesis draining 8L straw colored fluid continue medical management Past Patient History - Infectious Disease Hx of Infectious Diseases: None - Past Medical History & Family History Past Medical History?: Yes - Past Social History Smoking Status: Former Smoker - CARDIAC Hx Congestive Heart Failure: Yes Hx Hypertension: Yes - PULMONARY Hx Respiratory Disorders: No - NEUROLOGICAL Hx Neurological Disorder: No - HEENT Hx HEENT Problems: No - RENAL Hx Chronic Kidney Disease: No - ENDOCRINE/METABOLIC Hx Endocrine Disorders: No - HEMATOLOGICAL/ONCOLOGICAL Hx Blood Disorders: Yes Hx Cancer: Yes (PROSTATE) Hx Chemotherapy: Yes - INTEGUMENTARY Hx Dermatological Problems: No - MUSCULOSKELETAL/RHEUMATOLOGICAL Hx Arthritis: Yes (KNEE) Hx Falls: No - GASTROINTESTINAL Hx Gall Bladder Disease: Yes Hx Gastritis: Yes - GENITOURINARY/GYNECOLOGICAL Hx Genitourinary Disorders: No - PSYCHIATRIC Hx Substance Use: No - SURGICAL HISTORY Hx Surgeries: Yes Other/Comment: hernia repair 03/20/17 - ANESTHESIA Hx Anesthesia: Yes Hx Anesthesia Reactions: No Hx Malignant Hyperthermia: No Meds Allergies/Adverse Reactions: Allergies Allergy/AdvReac Type Severity Reaction Status Date / Time No Known Allergies Allergy Verified 09/12/18 09:41 - Medications Medications: Current Medications Albumin Human (Albumin Human 25% (12.5 Gm/50 Ml)) 12.5 gm IV Q6 [facility] Stop: 09/14/18 06:01 Last Admin: 09/13/18 18:10 Dose: 12.5 gm Amiodarone HCl (Cordarone) 200 mg PO DAILY [facility] Last Admin: 09/13/18 11:59 Dose: 200 mg Dicyclomine HCl (Bentyl) 20 mg PO TID [facility] Last Admin: 09/13/18 18:10 Dose: 20 mg Famotidine (Pepcid) 20 mg PO BID [facility] Last Admin: 09/13/18 18:11 Dose: 20 mg Flutamide (Eulexin) 250 mg PO TID [facility] Furosemide (Lasix) 40 mg PO DAILY [facility] Lactulose (Enulose) 20 gm PO HS [facility] Levothyroxine Sodium (Synthroid) 50 mcg PO DAILY@0630 [facility] Last Admin: 09/13/18 05:45 Dose: 50 mcg Prednisone (Prednisone Tab) 5 mg PO BID [facility] Last Admin: 09/13/18 18:11 Dose: 5 mg Rosuvastatin Calcium (Crestor) 5 mg PO HS [facility] Last Admin: 09/12/18 22:57 Dose: 5 mg Tamsulosin HCl (Flomax) 0.4 mg PO DAILY [facility] Last Admin: 09/13/18 11:59 Dose: 0.4 mg Tramadol HCl (Ultram) 50 mg PO Q8 PRN PRN Reason: Pain, moderate (4-7) Results - Vital Signs Recent Vital Signs: Last Vital Signs Temp 97.6 F 09/13/18 17:15 Pulse 60 09/13/18 17:15 Resp 20 09/13/18 17:15 BP 120/75 09/13/18 11:59 Pulse Ox 100 09/13/18 17:15 - Labs Result Diagrams: 09/12/18 11:30 09/12/18 15:11 Labs: Laboratory Results - last 24 hr 09/13/18 17:29 PT 14.3 H INR 1.3 APTT 31 D
--- NOTE | 2018-09-13 21:49 | CP.PCM.PN ---
Subjective - Date & Time of Evaluation Date of Evaluation: 09/13/18 Time of Evaluation: 18:25 - Subjective Subjective: Patient seen and evaluated S/P Paracentasis Feels better Review Of Systems Constitutional: Negative for: Fever, Chills Gastrointestinal: Positive for: Other (Abdominal distention and ascites). Negative for: Nausea, Vomiting, Diarrhea Skin: Negative for: Rash Neurological: Negative for: Weakness, Numbness Physical Exam - Physical Exam Appears: Non-toxic, No Acute Distress Skin: Normal Color, Warm, Dry, No Rash Head: Atraumatic, Normacephalic Eye(s): bilateral: Normal Inspection, PERRL, EOMI Oral Mucosa: Moist Neck: Normal ROM, Supple Chest: Symmetrical, No Tenderness Cardiovascular: Rhythm Regular Respiratory: Normal Breath Sounds, No Rales, No Rhonchi, No Wheezing Gastrointestinal/Abdominal: Soft, No Tenderness, Distention, Hernia (Umbilical hernia. Reducible. Non-tender. ), Ascites Extremity: Normal ROM Extremity: Bilateral: Atraumatic, Normal Color And Temperature, Normal ROM Neurological/Psych: Oriented x3, Normal Speech Assessment & Plan - Assessment and Plan (Free Text) Assessment: Hx of Cath ... , Non Obstructive CADF Hx of non ischemic CMP, refused AICD Hx of Ascites/Paracentasis HTN S/P Paracentasis Objective - Vital Signs/Intake and Output Vital Signs (last 24 hours): Temp Pulse Resp BP Pulse Ox 97.8 F 62 20 109/73 99 09/13/18 18:00 09/13/18 19:15 09/13/18 19:15 09/13/18 19:15 09/13/18 19:15 - Medications Medications: Current Medications Albumin Human (Albumin Human 25% (12.5 Gm/50 Ml)) 12.5 gm IV Q6 [facility] Stop: 09/14/18 06:01 Last Admin: 09/13/18 18:10 Dose: 12.5 gm Amiodarone HCl (Cordarone) 200 mg PO DAILY [facility] Last Admin: 09/13/18 11:59 Dose: 200 mg Dicyclomine HCl (Bentyl) 20 mg PO TID [facility] Last Admin: 09/13/18 18:10 Dose: 20 mg Famotidine (Pepcid) 20 mg PO BID [facility] Last Admin: 09/13/18 18:11 Dose: 20 mg Flutamide (Eulexin) 250 mg PO TID [facility] Last Admin: 09/13/18 18:54 Dose: 250 mg Furosemide (Lasix) 40 mg PO DAILY [facility] Lactulose (Enulose) 20 gm PO HS [facility] Last Admin: 09/13/18 21:45 Dose: 20 gm Levothyroxine Sodium (Synthroid) 50 mcg PO DAILY@0630 [facility] Last Admin: 09/13/18 05:45 Dose: 50 mcg Prednisone (Prednisone Tab) 5 mg PO BID [facility] Last Admin: 09/13/18 18:11 Dose: 5 mg Rosuvastatin Calcium (Crestor) 5 mg PO HS [facility] Last Admin: 09/13/18 21:45 Dose: 5 mg Tamsulosin HCl (Flomax) 0.4 mg PO DAILY [facility] Last Admin: 09/13/18 11:59 Dose: 0.4 mg Tramadol HCl (Ultram) 50 mg PO Q8 PRN PRN Reason: Pain, moderate (4-7) - Labs Labs: 09/12/18 11:30 09/12/18 15:11 PT 14.3 SECONDS (9.7-12.2) H 09/13/18 17:29 INR 1.3 09/13/18 17:29 APTT 31 SECONDS (21-34) D 09/13/18 17:29
--- NOTE | 2018-09-13 23:10 | CP.PCM.PN ---
Subjective - Subjective Subjective: dictated Objective - Vital Signs/Intake and Output Vital Signs (last 24 hours): Temp Pulse Resp BP Pulse Ox 97.8 F 62 20 109/73 99 09/13/18 18:00 09/13/18 19:15 09/13/18 19:15 09/13/18 19:15 09/13/18 19:15 Intake and Output: 09/13/18 09/14/18 18:59 06:59 Intake Total 450 Balance 450 - Medications Medications: Current Medications Albumin Human (Albumin Human 25% (12.5 Gm/50 Ml)) 12.5 gm IV Q6 [facility] Stop: 09/14/18 06:01 Last Admin: 09/13/18 18:10 Dose: 12.5 gm Amiodarone HCl (Cordarone) 200 mg PO DAILY [facility] Last Admin: 09/13/18 11:59 Dose: 200 mg Dicyclomine HCl (Bentyl) 20 mg PO TID [facility] Last Admin: 09/13/18 18:10 Dose: 20 mg Famotidine (Pepcid) 20 mg PO BID [facility] Last Admin: 09/13/18 18:11 Dose: 20 mg Flutamide (Eulexin) 250 mg PO TID [facility] Last Admin: 09/13/18 18:54 Dose: 250 mg Furosemide (Lasix) 40 mg PO DAILY [facility] Lactulose (Enulose) 20 gm PO [facility] Last Admin: 09/13/18 21:45 Dose: 20 gm Levothyroxine Sodium (Synthroid) 50 mcg PO DAILY@0630 [facility] Last Admin: 09/13/18 05:45 Dose: 50 mcg Prednisone (Prednisone Tab) 5 mg PO BID [facility] Last Admin: 09/13/18 18:11 Dose: 5 mg Rosuvastatin Calcium (Crestor) 5 mg PO HS [facility] Last Admin: 09/13/18 21:45 Dose: 5 mg Tamsulosin HCl (Flomax) 0.4 mg PO DAILY [facility] Last Admin: 09/13/18 11:59 Dose: 0.4 mg Tramadol HCl (Ultram) 50 mg PO Q8 PRN PRN Reason: Pain, moderate (4-7) - Labs Labs: 09/12/18 11:30 09/12/18 15:11 PT 14.3 SECONDS (9.7-12.2) H 09/13/18 17:29 INR 1.3 09/13/18 17:29 APTT 31 SECONDS (21-34) D 09/13/18 17:29
[2018-09-14 00:02] VITALS: O2SAT 100
--- NOTE | 2018-09-14 01:59 | PN ---
DATE: 09/13/2018 SUBJECTIVE: The patient is status post paracentesis of the ascites and the patient feels a lot better. No fever. No chills. PHYSICAL EXAMINATION: VITAL SIGNS: Blood pressure 110/68, pulse 64, respiratory rate 20, temperature 97.8. LUNGS: Decreased air entry. CARDIOVASCULAR SYSTEM: S1, S2, plus S3 positive. ABDOMEN: Soft. Nontender. Bowel sounds are positive and decreased ascites. ASSESSMENT: 1. Cirrhosis of liver with end-stage liver disease, status post paracentesis. 2. Prostate cancer with metastatic disease. 3. Chronic kidney disease. 4. Coronary artery disease, congestive heart failure. PLAN: Medical management. Start patient on albumin. Monitor the patient. Gregory Thrasher MD
[2018-09-14] MEDS: Levothyroxine 50 MCG TAB PO SCH (05:57)
[2018-09-14] MEDS: Albumin Human 25% (12.5 gm/50 ml) IV SCH (05:57)
[2018-09-14 08:38] VITALS: BP 111/68; PULSE 61; TEMP 98
--- NOTE | 2018-09-14 12:39 | CP.PCM.PN ---
Subjective - Date & Time of Evaluation Date of Evaluation: 09/14/18 Time of Evaluation: 12:39 - Subjective Subjective: PATIENT SEEN AND EXAMINED AT THE BEDSIDE Objective - Vital Signs/Intake and Output Vital Signs (last 24 hours): Temp Pulse Resp BP Pulse Ox 98 F 61 20 111/68 100 09/14/18 08:36 09/14/18 08:36 09/14/18 08:36 09/14/18 10:08 09/14/18 08:36 Intake and Output: 09/14/18 09/14/18 06:59 18:59 Intake Total 450 Balance 450 - Medications Medications: Current Medications Amiodarone HCl (Cordarone) 200 mg PO DAILY [facility] Last Admin: 09/14/18 10:07 Dose: 200 mg Dicyclomine HCl (Bentyl) 20 mg PO TID [facility] Last Admin: 09/14/18 10:07 Dose: 20 mg Famotidine (Pepcid) 20 mg PO DAILY [facility] Last Admin: 09/14/18 10:07 Dose: 20 mg Flutamide (Eulexin) 250 mg PO TID [facility] Last Admin: 09/14/18 10:27 Dose: 250 mg Furosemide (Lasix) 40 mg PO DAILY [facility] Last Admin: 09/14/18 10:08 Dose: 40 mg Lactulose (Enulose) 20 gm PO [facility] Last Admin: 09/13/18 21:45 Dose: 20 gm Levothyroxine Sodium (Synthroid) 50 mcg PO DAILY@0630 [facility] Last Admin: 09/14/18 05:57 Dose: 50 mcg Prednisone (Prednisone Tab) 5 mg PO BID [facility] Last Admin: 09/14/18 10:07 Dose: 5 mg Rosuvastatin Calcium (Crestor) 5 mg PO HS [facility] Last Admin: 09/13/18 21:45 Dose: 5 mg Tamsulosin HCl (Flomax) 0.4 mg PO DAILY [facility] Last Admin: 09/14/18 10:07 Dose: 0.4 mg Tramadol HCl (Ultram) 50 mg PO Q8 PRN PRN Reason: Pain, moderate (4-7) - Labs Labs: 09/12/18 11:30 09/12/18 15:11 PT 14.3 SECONDS (9.7-12.2) H 09/13/18 17:29 INR 1.3 09/13/18 17:29 APTT 31 SECONDS (21-34) D 09/13/18 17:29 Assessment and Plan - Assessment and Plan (Free Text) Assessment: FOLLOW UP WITH DR FIELD IN HIS OFFICE ---CALL FOR APPOINTMENT FOLLOW UP WITH DR SARKAR IN HIS OFFICE ----CALL FOR APPOINTMENT FOLLOW UP WITH DR VAZQUEZ IN HIS OFFICE -----CALL FOR APPOINTMENT CONTINUE HOME MEDICATION ACTIVITY TOLERATED CALL DR FIELD OR GO TO THE EMERGENCY ROOM IF SYMPTOM RETURN OR WORSENING
--- NOTE | 2018-09-14 13:20 | PN ---
DATE: 09/14/2018 LOCATION 369, bed A. SUBJECTIVE: This is a 78-year-old male seen and examined in rounds without significant clinical changes or reported active bleeding. Denied any actual chest pain, palpitation or significant abdominal pain. No chills or fever. The patient still has mild intermittent periods of mild nausea with slight dyspepsia on and off with positive postprandial abdominal distention. The entire chart is reviewed and the most recent lab results showed PT of 14.3 with CEA level of 8.25, elevated. The patient will need abdominal paracentesis, will need colonoscopy most likely. PHYSICAL EXAMINATION: GENERAL: A 78-year-old male, awake, alert, oriented. VITAL SIGNS: Afebrile with pulse of 58, respiratory 20-22, blood pressure 114/66. HEENT: Showed pale dry oral mucous membrane. Nonicteric sclerae. LUNGS: Few scattered crepitation. Decreased air entry at bases. HEART: Positive S1 and S2. ABDOMEN: Soft with mild generalized tenderness. No mass or organomegaly. No rebound tenderness or guarding. EXTREMITIES: Without significant clubbing, cyanosis or edema. NEUROLOGIC: No reported new neurological deficit, sensory or motor. It has to be mentioned that the patient still has much less ascites with slight abdominal distention and slight generalized tenderness. IMPRESSION: 1. 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 2. Peptic ulcer disease. 3. Known history of osteoarthritis, hypertension, prostatic cancer, congestive heart failure with coronary artery disease. 4. Pancytopenia, most likely secondary to above. 5. Status post abdominal paracentesis, pathology report regarding the ascitic fluid is still pending. SUGGESTIONS: 1. Continue current management. 2. The patient will need endoscopic evaluation especially of the lower GI tract due to increased CEA level and when he is more stable clinically, that to be discussed at length with the admitting MD as well as the security consultant on the case. Thank you for letting me participate in your patient's case management. Halle Tran MD
--- NOTE | 2018-09-14 21:50 | CP.PCM.DIS ---
Provider - Provider Date of Admission: 09/12/18 13:24 Attending physician: Gregory Thrasher MD Consults: 09/12/18 15:14 Inpatient DATABASE OPERATOR Core Measures Referral Routine Comment: Physician Instructions: Reason For Exam: new admission. Hx CHF 09/12/18 19:04 Cardiology Consult Routine Comment: chf Consulting Provider: Romulo Pan Consulting Physician: Romulo Pan Reason for Consult: chf Gastroenterology Consult Routine Comment: Consulting Provider: Halle Dill Consulting Physician: Halle Dill Reason for Consult: asities Pulmonology Consult Routine Comment: Consulting Provider: Nico Gardner Consulting Physician: Nico Gardner Reason for Consult: dyspnea Hospital Course - Lab Results Lab Results: Most Recent Lab Values WBC 4.6 K/uL (4.8-10.8) L 09/12/18 11:30 RBC 3.20 Mil/uL (4.40-5.90) L 09/12/18 11:30 Hgb 10.3 g/dL (12.0-18.0) L 09/12/18 11:30 Hct 31.8 % (35.0-51.0) L 09/12/18 11:30 MCV 99.5 fL (80.0-94.0) H D 09/12/18 11:30 MCH 32.3 pg (27.0-31.0) H 09/12/18 11:30 MCHC 32.5 g/dL (33.0-37.0) L 09/12/18 11:30 RDW 19.9 % (11.5-14.5) H 09/12/18 11:30 Plt Count 108 K/uL (130-400) L 09/12/18 11:30 MPV 10.6 fL (7.2-11.7) 09/12/18 11:30 Neut % (Auto) 80.9 % (50.0-75.0) H 09/12/18 11:30 Lymph % (Auto) 10.0 % (20.0-40.0) L 09/12/18 11:30 Dundy % (Auto) 8.1 % (0.0-10.0) 09/12/18 11:30 Eos % (Auto) 0.5 % (0.0-4.0) 09/12/18 11:30 Baso % (Auto) 0.5 % (0.0-2.0) 09/12/18 11:30 Neut # (Auto) 3.7 K/uL (1.8-7.0) 09/12/18 11:30 Lymph # (Auto) 0.5 K/uL (1.0-4.3) L 09/12/18 11:30 Dundy # (Auto) 0.4 K/uL (0.0-0.8) 09/12/18 11:30 Eos # (Auto) 0.0 K/uL (0.0-0.7) 09/12/18 11:30 Baso # (Auto) 0.0 K/uL (0.0-0.2) 09/12/18 11:30 Differential Comment 09/12/18 11:30 PT 14.3 SECONDS (9.7-12.2) H 09/13/18 17:29 INR 1.3 09/13/18 17:29 APTT 31 SECONDS (21-34) D 09/13/18 17:29 Sodium 140 mmol/L (132-148) 09/12/18 15:11 Potassium 4.1 mmol/L (3.6-5.2) 09/12/18 15:11 Chloride 110 mmol/L (98-107) H 09/12/18 15:11 Carbon Dioxide 21 mmol/L (22-30) L 09/12/18 15:11 Anion Gap 13 (10-20) 09/12/18 15:11 BUN 28 mg/dL (9-20) H 09/12/18 15:11 Creatinine 1.9 mg/dL (0.8-1.5) H 09/12/18 15:11 Est GFR ( Amer) 42 09/12/18 15:11 Est GFR (Non-Af Amer) 35 09/12/18 15:11 Random Glucose 76 mg/dL (75-110) 09/12/18 15:11 Calcium 8.6 mg/dl (8.6-10.4) 09/12/18 15:11 Total Bilirubin 1.4 mg/dL (0.2-1.3) H 09/12/18 15:11 AST 43 U/L (17-59) 09/12/18 15:11 ALT 15 U/L (21-72) L 09/12/18 15:11 Alkaline Phosphatase 530 U/L (38-126) H D 09/12/18 15:11 Total Protein 6.2 g/dL (6.3-8.3) L 09/12/18 15:11 Albumin 3.6 g/dL (3.5-5.0) 09/12/18 15:11 Globulin 2.6 gm/dL (2.2-3.9) 09/12/18 15:11 Albumin/Globulin Ratio 1.4 (1.0-2.1) 09/12/18 15:11 Alpha Fetoprotein 4.5 ng/mL (0.0-7.5) 09/13/18 17:29 Carcinoembryonic Ag 8.5 ng/mL (0-3.0) H 09/13/18 17:29 CA 19-9 Antigen 12.5 U/mL (0-37) 09/13/18 17:29 Discharge Plan - Follow Up Plan Condition: GOOD Disposition: HOME/ ROUTINE Instructions: Heart Failure, Adult (DC), Fluid in the Belly (Ascites) (DC), Abdominal Paracentesis (DC) Additional Instructions: FOLLOW UP WITH DR THRASHER IN HIS OFFICE ---CALL FOR APPOINTMENT FOLLOW UP WITH DR GARDNER IN HIS OFFICE ----CALL FOR APPOINTMENT FOLLOW UP WITH DR DILL IN HIS OFFICE -----CALL FOR APPOINTMENT CONTINUE HOME MEDICATION ACTIVITY TOLERATED CALL DR THRASHER OR GO TO THE EMERGENCY ROOM IF SYMPTOM RETURN OR WORSENING Referrals: Nico Gardner MD [Staff Provider] - Romulo Pan MD [Staff Provider] - Halle Dill [Staff Provider] - Gregory Thrasher MD [Staff Provider] -
--- NOTE | 2018-09-15 16:05 | IP.NPCORE ---
Heart Failure Core Measure - Heart Failure Ejection Fraction: Less Than 40 % WINTER Inhibitor Prescribed: No Contraindication/Reason for not providing: CRF Beta-Mariana Prescribed: None Contraindication/Reason for not providing: SINUS ENRIQUE Angiotensin II Receptor Mariana Prescribed: No Contraindication/Reason for not providing: CRF AnticoagulationTherapy for Atrial Fibrillation/Atrialflutter: No Contraindication/Reason for not providing: NO HX OF AFIB Aldosterone Antagonist Prescribed: No Contraindication/Reason for not providing: ON AMIODORONE Hydralazine Nitrate Prescribed: No Contraindication/Reason for not providing: ON AMIODORONE Implantable Cardioverter Defibrillator Therapy: No Contraindication/Reason for not providing: NOT INDICATED BY THE HEAT TREATER Cardiac Resynchronization Therapy Prescribed: No Contraindication/Reason for not providing: NOT INDICATED BY THE HEAT TREATER - Follow up Will be discharged to: Home Follow Up Date (must be within 7 days from discharge): 09/20/18 Follow Up Time: 12:00
[2018-09-15 22:46] LABS: GLUCOSE PERITONEAL FLUID 105 mg/dL
--- NOTE | 2018-09-16 04:34 | DS ---
I was called for a GI consultation by the admitting MD. The patient is seen and fully examined on 09/12/[address] Thrasher. A shorthand writing consultation sheet left in the chart at the time of my GI consultation. The entire chart is reviewed. Case discussed with the staff at length as well as the admitting medical team. SUBJECTIVE: This is a 78-year-old male with known case for me from previous admission was admitted to the hospital through the emergency room due to abdominal pain, increased abdominal gas, postprandial abdominal distention with subsequent increase of ascites, for which previously he had paracentesis more than one time. No reported active bleeding, chest pain, palpitation but very mild shortness of breath. No chills or fever reported. PAST MEDICAL HISTORY: Including but not limited to, 1. Peptic ulcer disease. 2. Hypertension, congestive heart failure, coronary artery disease. 3. Prostatic CA. 4. Osteoarthritis. 5. Evidence of apparently portal hypertension with refractory ascites for which more than one abdominal paracentesis was done. SOCIAL HISTORY: Positive for alcohol intake before in excess. FAMILY HISTORY: Unrelated to specific GI disorder. CURRENT MEDICATIONS: Post-admission medication list reviewed. ALLERGIES TO MEDICATIONS: UNKNOWN. After being admitted to the hospital, the patient was found to have mild subsequent drop of hemoglobin and hematocrit with slight increase of coagulation. PHYSICAL EXAMINATION: GENERAL: A 78-year-old male, appears to be awake, alert and oriented. VITAL SIGNS: Afebrile with pulse of 64, respiratory rate 20 to 22, blood pressure 124/70. HEENT: Showed pale dry mucoid membrane with slight icteric sclerae bilaterally. LYMPH NODES: No lymphadenitis or lymphadenopathy. HEART: Positive for S1 and S2. ABDOMEN: Soft with [id number] distention with generalized tenderness. No mass or organomegaly. No rebound tenderness or guarding. RECTAL: The patient refused. EXTREMITIES: With lower extremities mild edematous changes. No clubbing or cyanosis. NEUROLOGIC: No reported new neurological deficits, sensory or motor. No reported new local deficits. IMPRESSION: 1. Liver cirrhosis by history with portal hypertension and refractory ascites. 2. To rule out gastrointestinal occult malignancy. 3. Multiple past medical history as mentioned above. SUGGESTIONS: 1. Agree with your plan. 2. Correct any underlying electrolyte imbalance. 3. Abdominal paracentesis to be done by the IR staff. 4. Cancer markers including alpha-fetoprotein. 5. Ammonia level. 6. Further recommendation to follow. Thank you for letting me participate in your patient's case management. Halle Tran MD
--- NOTE | 2018-09-16 12:05 | DS ---
DISCHARGE DIAGNOSES: 1. Cirrhosis of the liver, massive ascites. 2. Prostate cancer. 3. Hypertension. 4. Congestive heart failure. HOSPITAL COURSE: This is a 78-year-old -[place] male with history of congestive heart failure, cirrhosis of liver with ascites and worsening ascites, abdominal distention. The patient was placed on diuretics, intake and output fluid restriction, and Intervention Radiology removed large-volume paracentesis and post-paracentesis, the patient was discharged with outpatient followup. CONDITION UPON DISCHARGE: Stable. PHYSICAL EXAMINATION: VITAL SIGNS: Blood pressure 111/68, pulse 61, respiratory rate 20, temperature 98. LUNGS: Decreased air entry. CARDIOVASCULAR SYSTEM: S1 and S2 regular. ABDOMEN: Soft. ASSESSMENT: 1. Cirrhosis of liver with end-stage liver disease. 2. Congestive heart failure. 3. Prostate cancer. PLAN: Continue current medication . Gregory Thrasher MD
--- NOTE | 2018-09-17 14:45 | CARD ---
APPROVED REPORT Date of service: 09/12/2018 EKG Measurement Heart [id number] <Conclusion> sinus bradycardia Right superior axis deviation Low voltage QRS Cannot rule out Anteroseptal infarct, age undetermined Abnormal ECG
== END 2018-09-14 15:35 | disposition home or self-care (01) | DRG 433 ==
LOC: C.ER 09:29 → C.3T 13:24
PROVIDERS: ADMIT Internal Medicine; ATTEND Internal Medicine
PROC: 0W9G3ZZ Drainage of Peritoneal Cavity, Percutaneous Approach (ICD-10-PCS; principal; 2018-09-13)
DX: K70.31 Alcoholic cirrhosis of liver with ascites (principal); K76.6 Portal hypertension; I13.0 Hypertensive heart and chronic kidney disease with heart failure and stage 1 through stage 4 chronic kidney disease, or unspecified chronic kidney disease; J98.11 Atelectasis; I42.9 Cardiomyopathy, unspecified; D61.818 Other pancytopenia; C78.89 Secondary malignant neoplasm of other digestive organs; C79.89 Secondary malignant neoplasm of other specified sites; Z87.891 Personal history of nicotine dependence; I50.9 Heart failure, unspecified; I25.10 Atherosclerotic heart disease of native coronary artery without angina pectoris; K70.40 Alcoholic hepatic failure without coma; M17.10 Unilateral primary osteoarthritis, unspecified knee; N18.9 Chronic kidney disease, unspecified; D63.8 Anemia in other chronic diseases classified elsewhere; C61 Malignant neoplasm of prostate; E03.9 Hypothyroidism, unspecified; C80.1 Malignant (primary) neoplasm, unspecified

== ENCOUNTER 2018-09-26 19:43 | Inpatient (IN) | payer BC, MEDICARE | END 2018-09-29 12:00 | disposition home or self-care (01) | LOC: C.3T 09-27 03:29 → C.ER 19:43 → C.9E 21:52 ==

== ENCOUNTER 2018-10-06 19:10 | Inpatient (IN) | payer BC, MEDICARE ==
[2018-10-06 19:10] VITALS: BMI 23.7
--- NOTE | 2018-10-06 19:12 | C.PDOC ---
History Of Present Illness 78 year old male with a Hx of prostate cancer, ascites,CAD, CHF, gastritis, arthritis, and HTN presents with suprapubic abdominal pain for the past 2 days associated with increasing distention. Patient describes the pain as throbbing and began after he ate a meatball sub. He also notes having bloody stool, it did not fill the toilet bowl, only noticed when wiping. Denies fall, trauma, fever, chills, night sweats. Patient did not take anything for the pain. Time Seen by Provider: 10/06/18 19:11 History Per: Patient History/Exam Limitations: no limitations Onset/Duration Of Symptoms: Days (2) Current Symptoms Are (Timing): Still Present Context: Food Location Of Pain/Discomfort: Suprapubic Quality Of Discomfort: Other (Throbbing) Associated Symptoms: Other (Bloody stool). denies: Fever, Chills Exacerbating Factors: None Alleviating Factors: None Recent travel outside of the [place]: No Past Medical History Reviewed: Historical Data, Nursing Documentation, Vital Signs - Medical History PMH: Arthritis (KNEE), CAD, CHF, Gastritis, Gall Bladder Disease, HTN, Malignancy (Prostate) Denies: Chronic Kidney Disease - [facility] Procedures DRAINAGE OF PERITONEAL CAVITY, PERCUTANEOUS APPROACH (01/24/18) DRAINAGE OF PERITONEAL CAVITY, PERCUTANEOUS APPROACH, DIAGN (02/12/17) ULTRASONOGRAPHY OF ABDOMEN (09/12/17) Family History: States: Unknown Family Hx - Social History Hx Tobacco Use: No Hx Alcohol Use: No Hx Substance Use: No - Immunization History Hx Tetanus Toxoid Vaccination: (unk) Hx Influenza Vaccination: Yes Hx Pneumococcal Vaccination: (unk) Review Of Systems Except As Marked, All Systems Reviewed And Found Negative. Constitutional: Negative for: Fever, Chills, Sweats Eyes: Negative for: Pain, Vision Change ENT: Negative for: Ear Pain, Ear Discharge Cardiovascular: Negative for: Chest Pain, Palpitations Respiratory: Negative for: Cough, Shortness of Breath Gastrointestinal: Positive for: Abdominal Pain. Negative for: Nausea, Vomiting, Diarrhea, Constipation Genitourinary: Negative for: Dysuria, Frequency, Incontinence Musculoskeletal: Negative for: Neck Pain, Shoulder Pain, Back Pain, Hand Pain Neurological: Negative for: Weakness, Numbness Physical Exam - Physical Exam Appears: Non-toxic Skin: Warm, Dry Head: Atraumatic, Normacephalic Eye(s): bilateral: Normal Inspection, PERRL, EOMI Nose: Normal Oral Mucosa: Moist Throat: Normal, No Erythema, No Exudate Neck: Normal, Supple Chest: Symmetrical, No Tenderness Cardiovascular: Rhythm Regular Respiratory: Normal Breath Sounds, No Rales, No Rhonchi, No Wheezing Gastrointestinal/Abdominal: Soft, Tenderness (Suprapubic), Distention, No Guarding, No Rebound Back: No CVA Tenderness, No Vertebral Tenderness Neurological/Psych: Oriented x3, Normal Speech, Normal Cognition, Normal Motor ED Course And Treatment - Laboratory Results Result Diagrams: 10/07/18 00:56 10/06/18 19:28 Medical Decision Making Medical Decision Makin yr old male w/ hx of prostate CA, ascities p/w bloody stool and abdominal pain. No hx of alcoholic cirrhosis. On exam distened w/ suprapubic pain. No back pain. Likely ascities 2/2 previous prostate CA requiring drainage. Bloody stool per pt- but not on blood thinners. Pt did not take any pain meds for pain: no recent NSAIDS. Will seek imaging and labs. Impression: Ascites vs UTI Plan: Blood work, EKG, urinalysis, occult blood test, morphine. 1945 appreciate consult w/ Dr. Thrasher: to admit to his service. pt in [facility], agreeable to plan. 2125 labs reviewed: anemia, 8.5 Protonix ordered given anemia, bloody stool pt in [facility] Rocephin given emperically given ascities. Pt remains afebrile. [address] w/ ascities surgical consult placed. Pt NPO in NAD Hernia reduced by surgical supervisor. Pt notes pain improved. Disposition - Disposition Disposition Time: 19:42 Condition: STABLE - Clinical Impression Clinical Impression: Bloody stool, Anemia, Ascites, MAHIN (acute kidney injury), Hernia - Scribe Statement The provider has reviewed the documentation as recorded by the Scribe David Elias All medical record entries made by the Scribe were at my direction and personally dictated by me. I have reviewed the chart and agree that the record accurately reflects my personal performance of the history, physical exam, medical decision making, and the department course for this patient. I have also personally directed, reviewed, and agree with the discharge instructions and disposition.
[2018-10-06] MEDS ORDERED: Morphine 4 MG/ML VIAL IVP STA (19:32)
[2018-10-06] MEDS ORDERED: Morphine 4 MG/ML VIAL ONE (19:32)
[2018-10-06 19:35] LABS: BASO % 0.3 % (0.0-2.0); HEMOGLOBIN 8.7 g/dL (12.0-18.0); LYMPH # 0.4 K/uL (1.0-4.3); LYMPH % 3.9 % (20.0-40.0); MEAN CELL VOLUME 100.9 fL (80.0-94.0); MEAN CORPUSCULAR HEMOGLOBIN 31.7 pg (27.0-31.0); MEAN CORPUSCULAR HGB CONC 31.4 g/dL (33.0-37.0); MEAN PLATELET VOLUME 9.3 fL (7.2-11.7); MONO # 0.4 K/uL (0.0-0.8); MONO % 3.1 % (0.0-10.0); NEUT # 10.7 K/uL (1.8-7.0); NEUT % 92.7 % (50.0-75.0); NRBC % 0.4 % (0.0-2.0); PLATELET COUNT 198 K/uL (130-400); RBC 2.73 Mil/uL (4.40-5.90); RED CELL DISTRIBUTION WIDTH 18.8 % (11.5-14.5); WHITE BLOOD COUNT 11.5 K/uL (4.8-10.8)
[2018-10-06 19:47] LABS: ALB/GLOB RATIO 1.5 (1.0-2.1); ALBUMIN 3.7 g/dL (3.5-5.0); CALCIUM 8.6 mg/dl (8.6-10.4)
[2018-10-06 19:52] LABS: INR 1.2; PROTHROMBIN TIME 13.1 SECONDS (9.7-12.2)
[2018-10-06 20:02] LABS: BANDS 35 % (0-2); LYMPHOCYTE 9 % (20-40); METAMYELOCYTE 3 % (0-0); MONOCYTE 3 % (0-10); MYELOCYTE 1 % (0-0); NEUTROPHIL 48 % (50-75); REACTIVE LYMPHOCYTES 1 % (0-0); TOTAL CELLS COUNTED 100
[2018-10-06 20:03] LABS: PLATELET ESTIMATE NORMAL (NORMAL)
[2018-10-06] MEDS ORDERED: Oxycodone/Acetaminophen 5/325 mg Tab PO PRN (20:07)
[2018-10-06] MEDS ORDERED: Oxycodone/Acetaminophen 5/325 mg Tab ONE (21:01)
[2018-10-06] MEDS: Morphine 15 mg SR Tab PO SCH (22:00)
--- NOTE | 2018-10-06 22:50 | CP.PCM.CON ---
History of Present Illness - History of Present Illness History of Present Illness: General Surgery Consult Re: Incarcerated umbilical hernia with SBO HPI: 78M, who ia a poor historian, presented to the ED with ~1 week suprapubic/periumbilical pain. Reports associated nausea and emesis for "several days," unable to eat for 2 days. Pain is throbbing and began after he ate a meatball sub. Reports he has had bloody stools but could not say when. Denies headache, fever, chills, night sweats, bloody emesis, dysuria, hematuria, tenesmus. PMH: CAD, CHF, HTN, Prostate CA, cirrhosis, hypothyroidism, gastritis, arthritis PSH: cardiac cath , Inguinal hernia repair 2016 SH: Former smoker, former ETOH, quit both in 1977. No drug use. FH: Non contributory All: NKDA Meds: See MAR Review of Systems - Review of Systems All systems: reviewed and no additional remarkable complaints except (as per HPI) Past Patient History - Infectious Disease Hx of Infectious Diseases: None - Past Medical History & Family History Past Medical History?: Yes - Past Social History Smoking Status: Former Smoker - CARDIAC Hx Congestive Heart Failure: Yes Hx Hypertension: Yes - PULMONARY Hx Respiratory Disorders: No - NEUROLOGICAL Hx Neurological Disorder: No - HEENT Hx HEENT Problems: No - RENAL Hx Chronic Kidney Disease: No - ENDOCRINE/METABOLIC Hx Endocrine Disorders: No - HEMATOLOGICAL/ONCOLOGICAL Hx Blood Disorders: Yes Hx Cancer: Yes (PROSTATE) Hx Chemotherapy: Yes - INTEGUMENTARY Hx Dermatological Problems: No - MUSCULOSKELETAL/RHEUMATOLOGICAL Hx Arthritis: Yes (KNEE) - GASTROINTESTINAL Hx Gall Bladder Disease: Yes Hx Gastritis: Yes - GENITOURINARY/GYNECOLOGICAL Hx Genitourinary Disorders: No - PSYCHIATRIC Hx Substance Use: No - SURGICAL HISTORY Hx Surgeries: Yes Other/Comment: hernia repair 03/20/17 - ANESTHESIA Hx Anesthesia: Yes Hx Anesthesia Reactions: No Hx Malignant Hyperthermia: No Meds Allergies/Adverse Reactions: Allergies Allergy/AdvReac Type Severity Reaction Status Date / Time No Known Allergies Allergy Verified 10/06/18 19:23 - Medications Medications: Current Medications Amiodarone HCl (Cordarone) 200 mg PO DAILY [facility] Dicyclomine HCl (Bentyl) 20 mg PO TID [facility] Famotidine (Pepcid) 40 mg PO DAILY [facility] Furosemide (Lasix) 20 mg PO DAILY [facility] Home Med (Abiraterone Acetate [Zytiga]) 250 mg PO DAILY [facility] Home Med (Bicalutamide [Casodex]) 50 mg PO DAILY [facility] Pantoprazole Sodium 80 mg/ (Sodium Chloride) 100 mls @ 10 mls/hr IVP .Q10H [facility] Levothyroxine Sodium (Synthroid) 50 mcg PO DAILY@0630 [facility] Morphine Sulfate (Morphine Extended Release Tab) 15 mg PO Q12 [facility] Ondansetron HCl (Zofran Inj) 4 mg IVP Q6 PRN PRN Reason: Nausea/Vomiting Last Admin: 10/06/18 21:27 Dose: 4 mg Oxycodone/Acetaminophen (Percocet 5/325 Mg Tab) 1 tab PO Q6 PRN PRN Reason: Pain, moderate (4-7) Stop: 10/09/18 20:08 Last Admin: 10/06/18 21:10 Dose: 1 tab Prednisone (Prednisone Tab) 5 mg PO BID [facility] Rosuvastatin Calcium (Crestor) 5 mg PO HS [facility] Tamsulosin HCl (Flomax) 0.4 mg PO DAILY [facility] Physical Exam - Constitutional Appears: Non-toxic, No Acute Distress - Head Exam Head Exam: ATRAUMATIC, NORMOCEPHALIC - Eye Exam Eye Exam: Scleral icterus - ENT Exam ENT Exam: Mucous Membranes Dry Additional comments: trachea midline - Neck Exam Neck exam: Positive for: Full Rom. Negative for: Tenderness - Respiratory Exam Respiratory Exam: Respiratory Distress, NORMAL BREATHING PATTERN - Cardiovascular Exam Cardiovascular Exam: +S1, +S2. absent: Bradycardia, Tachycardia - GI/Abdominal Exam GI & Abdominal Exam: Distended, Hernia (reducible umbilical hernia), Soft, Tenderness (at umbilicus). absent: Firm, Guarding, Rebound, Rigid Additional comments: Ascites Some skin dry skin changes at hernia site. Reduced at bedside. - Rectal Exam Rectal Exam: Deferred - Extremities Exam Extremities exam: Positive for: normal capillary refill. Negative for: calf tenderness - Back Exam Back exam: absent: CVA tenderness (L), CVA tenderness (R) - Neurological Exam Neurological exam: Alert, Oriented x3 - Skin Skin Exam: Dry, Warm Results - Vital Signs Recent Vital Signs: Last Vital Signs Temp 97.4 F L 10/06/18 19:21 Pulse 77 10/06/18 19:21 Resp 20 10/06/18 19:21 BP 144/72 10/06/18 19:21 Pulse Ox 98 10/06/18 19:21 - Labs Result Diagrams: 10/06/18 19:28 10/06/18 19:28 Labs: Laboratory Results - last 24 hr 10/06/18 10/06/18 10/06/18 19:28 19:28 19:28 WBC 11.5 H RBC 2.73 L Hgb 8.7 L D Hct 27.6 L MCV 100.9 H D MCH 31.7 H MCHC 31.4 L RDW 18.8 H Plt Count 198 MPV 9.3 Neut % (Auto) 92.7 H Lymph % (Auto) 3.9 L Kane % (Auto) 3.1 Eos % (Auto) 0.0 Baso % (Auto) 0.3 Neut # (Auto) 10.7 H Lymph # (Auto) 0.4 L Kane # (Auto) 0.4 Eos # (Auto) 0.0 Baso # (Auto) 0.0 Neutrophils % (Manual) 48 L Band Neutrophils % 35 H* Lymphocytes % (Manual) 9 L Reactive Lymphs % 1 H Monocytes % (Manual) 3 Metamyelocytes % 3 H Myelocytes % 1 H Platelet Estimate Normal PT INR APTT Sodium 141 Potassium 4.1 Chloride 107 Carbon Dioxide 17 L Anion Gap 21 H BUN 31 H Creatinine 1.7 H Est GFR ( Amer) 48 Est GFR (Non-Af Amer) 39 Random Glucose 106 D Calcium 8.6 Magnesium 2.1 Total Bilirubin 1.6 H AST 42 ALT 17 L Alkaline Phosphatase 576 H D Ammonia < 9 L Total Protein 6.1 L Albumin 3.7 Globulin 2.4 Albumin/Globulin Ratio 1.5 Lipase 93 Stool Occult Blood Blood Type Antibody Screen 10/06/18 10/06/18 10/06/18 19:30 19:45 21:22 WBC RBC Hgb Hct MCV MCH MCHC RDW Plt Count MPV Neut % (Auto) Lymph % (Auto) Kane % (Auto) Eos % (Auto) Baso % (Auto) Neut # (Auto) Lymph # (Auto) Kane # (Auto) Eos # (Auto) Baso # (Auto) Neutrophils % (Manual) Band Neutrophils % Lymphocytes % (Manual) Reactive Lymphs % Monocytes % (Manual) Metamyelocytes % Myelocytes % Platelet Estimate PT 13.1 H INR 1.2 APTT 28 Sodium Potassium Chloride Carbon Dioxide Anion Gap BUN Creatinine Est GFR ( Amer) Est GFR (Non-Af Amer) Random Glucose Calcium Magnesium Total Bilirubin AST ALT Alkaline Phosphatase Ammonia Total Protein Albumin Globulin Albumin/Globulin Ratio Lipase Stool Occult Blood Positive H Blood Type A POSITIVE Antibody Screen Negative - Imaging and Cardiology CT scan - abdomen Status: Image reviewed by me, Report reviewed by me Assessment & Plan - Assessment and Plan (Free Text) Assessment: 78M with reducible umbilical hernia causing a small bowel obstruction. Plan: Hernia reduced, light pressure dressing placed for support. NPO IVF AM labs AM Obstructive series to re-evaluate D/W Dr. Reji Meadows PGY4
[2018-10-06] MEDS: Pantoprazole 80 MG in Sodium Chloride 0.9% 100 ML IVP SCH (23:40)
[2018-10-07 00:09] LABS: VENOUS BLOOD GAS BASE EXCESS -12.3 mmol/L (0.0-2.0); VENOUS BLOOD GAS PCO2 34 mmHg (40-60); VENOUS BLOOD GAS PO2 27 mm/Hg (30-55); VENOUS BLOOD PH 7.23 (7.32-7.43)
[2018-10-07 00:58] LABS: BASO % 0.2 % (0.0-2.0); HEMOGLOBIN 8.4 g/dL (12.0-18.0); LYMPH # 0.1 K/uL (1.0-4.3); LYMPH % 1.1 % (20.0-40.0); MEAN CELL VOLUME 101.8 fL (80.0-94.0); MEAN CORPUSCULAR HEMOGLOBIN 32.2 pg (27.0-31.0); MEAN CORPUSCULAR HGB CONC 31.7 g/dL (33.0-37.0); MEAN PLATELET VOLUME 9.6 fL (7.2-11.7); MONO # 0.2 K/uL (0.0-0.8); MONO % 1.8 % (0.0-10.0); NEUT # 9.1 K/uL (1.8-7.0); NEUT % 96.9 % (50.0-75.0); NRBC % 0.4 % (0.0-2.0); PLATELET COUNT 167 K/uL (130-400); RBC 2.62 Mil/uL (4.40-5.90); RED CELL DISTRIBUTION WIDTH 18.7 % (11.5-14.5); WHITE BLOOD COUNT 9.4 K/uL (4.8-10.8)
[2018-10-07 01:08] LABS: INR 1.3; PROTHROMBIN TIME 14.5 SECONDS (9.7-12.2)
--- NOTE | 2018-10-07 01:28 | CP.PCM.CON ---
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 Patient states that he routinely gets paracentesis for recurrent ascites. (+) abdominal pain below the umbilicus. Patient denies n/v/c/d. (+)blood in stool. 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 Denies alcohol, drugs. Fam Hx: Denies PMD: Dr. Haro Heme/onc: Dr. Adamson Cardio: Dr. Santos Review of Systems - Review of Systems All systems: reviewed and no additional remarkable complaints except Past Patient History - Infectious Disease Hx of Infectious Diseases: None - Tetanus Immunizations Tetanus Immunization: Unknown - Past Medical History & Family History Past Medical History?: Yes - Past Social History Smoking Status: Former Smoker - CARDIAC Hx Congestive Heart Failure: Yes Hx Hypertension: Yes - PULMONARY Hx Respiratory Disorders: No - NEUROLOGICAL Hx Neurological Disorder: No - HEENT Hx HEENT Problems: No - RENAL Hx Chronic Kidney Disease: No - ENDOCRINE/METABOLIC Hx Endocrine Disorders: No - HEMATOLOGICAL/ONCOLOGICAL Hx Blood Disorders: Yes Hx Cancer: Yes (PROSTATE) Hx Chemotherapy: Yes - INTEGUMENTARY Hx Dermatological Problems: No - MUSCULOSKELETAL/RHEUMATOLOGICAL Hx Arthritis: Yes (KNEE) - GASTROINTESTINAL Hx Gall Bladder Disease: Yes Hx Gastritis: Yes - GENITOURINARY/GYNECOLOGICAL Hx Genitourinary Disorders: No - PSYCHIATRIC Hx Substance Use: No - SURGICAL HISTORY Hx Surgeries: Yes Other/Comment: hernia repair 03/20/17 - ANESTHESIA Hx Anesthesia: Yes Hx Anesthesia Reactions: No Hx Malignant Hyperthermia: No Meds Allergies/Adverse Reactions: Allergies Allergy/AdvReac Type Severity Reaction Status Date / Time No Known Allergies Allergy Verified 10/06/18 19:23 - Medications Medications: Current Medications Amiodarone HCl (Cordarone) 200 mg PO DAILY [facility] Dicyclomine HCl (Bentyl) 20 mg PO TID [facility] Famotidine (Pepcid) 40 mg PO DAILY [facility] Furosemide (Lasix) 20 mg PO DAILY [facility] Home Med (Abiraterone Acetate [Zytiga]) 250 mg PO DAILY [facility] Home Med (Bicalutamide [Casodex]) 50 mg PO DAILY [facility] Pantoprazole Sodium 80 mg/ (Sodium Chloride) 100 mls @ 10 mls/hr IVP .Q10H [facility] Last Admin: 10/06/18 23:40 Dose: 10 mls/hr Levothyroxine Sodium (Synthroid) 50 mcg PO DAILY@0630 [facility] Morphine Sulfate (Morphine Extended Release Tab) 15 mg PO Q12 [facility] Last Admin: 10/06/18 22:00 Dose: Not Given Ondansetron HCl (Zofran Inj) 4 mg IVP Q6 PRN PRN Reason: Nausea/Vomiting Last Admin: 10/06/18 21:27 Dose: 4 mg Oxycodone/Acetaminophen (Percocet 5/325 Mg Tab) 1 tab PO Q6 PRN PRN Reason: Pain, moderate (4-7) Stop: 10/09/18 20:08 Last Admin: 10/06/18 21:10 Dose: 1 tab Prednisone (Prednisone Tab) 5 mg PO BID [facility] Rosuvastatin Calcium (Crestor) 5 mg PO HS [facility] Tamsulosin HCl (Flomax) 0.4 mg PO DAILY [facility] Physical Exam - Head Exam Head Exam: ATRAUMATIC, NORMAL INSPECTION, NORMOCEPHALIC - Eye Exam Eye Exam: EOMI, Normal appearance Pupil Exam: NORMAL ACCOMODATION - ENT Exam ENT Exam: Mucous Membranes Moist - Neck Exam Neck exam: Positive for: Normal Inspection - Respiratory Exam Respiratory Exam: Clear to Auscultation Bilateral, NORMAL BREATHING PATTERN - Cardiovascular Exam Cardiovascular Exam: REGULAR RHYTHM, +S1, +S2 - GI/Abdominal Exam GI & Abdominal Exam: Distended, Hernia, Hypoactive Bowel Sounds, Soft. absent: Firm, Guarding, Pulsatile Mass, Rebound, Rigid, Tenderness - Rectal Exam Rectal Exam: NORMAL INSPECTION - Extremities Exam Extremities exam: Positive for: normal inspection Additional comments: atrophy - Neurological Exam Neurological exam: Alert - Psychiatric Exam Psychiatric exam: Normal Affect Results - Vital Signs Recent Vital Signs: Last Vital Signs Temp 98.5 F 10/06/18 23:38 Pulse 90 10/06/18 23:38 Resp 24 10/06/18 23:38 BP 116/61 10/06/18 23:38 Pulse Ox 98 10/06/18 23:38 - Labs Result Diagrams: 10/07/18 00:56 10/06/18 19:28 Labs: Laboratory Results - last 24 hr 10/06/18 10/06/18 10/06/18 00:01 19:28 19:28 WBC 11.5 H RBC 2.73 L Hgb 8.7 L D Hct 27.6 L MCV 100.9 H D MCH 31.7 H MCHC 31.4 L RDW 18.8 H Plt Count 198 MPV 9.3 Neut % (Auto) 92.7 H Lymph % (Auto) 3.9 L Leon % (Auto) 3.1 Eos % (Auto) 0.0 Baso % (Auto) 0.3 Neut # (Auto) 10.7 H Lymph # (Auto) 0.4 L Leon # (Auto) 0.4 Eos # (Auto) 0.0 Baso # (Auto) 0.0 Neutrophils % (Manual) 48 L Band Neutrophils % 35 H* Lymphocytes % (Manual) 9 L Reactive Lymphs % 1 H Monocytes % (Manual) 3 Metamyelocytes % 3 H Myelocytes % 1 H Platelet Estimate Normal PT INR APTT pO2 27 L VBG pH 7.23 L VBG pCO2 34 L VBG HCO3 13.7 VBG Total CO2 15.2 L VBG O2 Sat (Calc) 41.5 VBG Base Excess -12.3 L VBG Potassium 4.1 Sodium 145.0 141 Chloride 110.0 H 107 Glucose 84 Lactate 5.5 H* Crit Value Called To Cher arrieta/rn Crit Value Called By Alonzo sorto/rt Crit Value Read Back Y Blood Gas Notified Time 10 Potassium 4.1 Carbon Dioxide 17 L Anion Gap 21 H BUN 31 H Creatinine 1.7 H Est GFR ( Amer) 48 Est GFR (Non-Af Amer) 39 Random Glucose 106 D Calcium 8.6 Magnesium 2.1 Total Bilirubin 1.6 H AST 42 ALT 17 L Alkaline Phosphatase 576 H D Ammonia Total Protein 6.1 L Albumin 3.7 Globulin 2.4 Albumin/Globulin Ratio 1.5 Lipase 93 Venous Blood Potassium 4.1 Stool Occult Blood Blood Type Antibody Screen 10/06/18 10/06/18 10/06/18 19:28 19:30 19:45 WBC RBC Hgb Hct MCV MCH MCHC RDW Plt Count MPV Neut % (Auto) Lymph % (Auto) Leon % (Auto) Eos % (Auto) Baso % (Auto) Neut # (Auto) Lymph # (Auto) Leon # (Auto) Eos # (Auto) Baso # (Auto) Neutrophils % (Manual) Band Neutrophils % Lymphocytes % (Manual) Reactive Lymphs % Monocytes % (Manual) Metamyelocytes % Myelocytes % Platelet Estimate PT 13.1 H INR 1.2 APTT 28 pO2 VBG pH VBG pCO2 VBG HCO3 VBG Total CO2 VBG O2 Sat (Calc) VBG Base Excess VBG Potassium Sodium Chloride Glucose Lactate Crit Value Called To Crit Value Called By Crit Value Read Back Blood Gas Notified Time Potassium Carbon Dioxide Anion Gap BUN Creatinine Est GFR ( Amer) Est GFR (Non-Af Amer) Random Glucose Calcium Magnesium Total Bilirubin AST ALT Alkaline Phosphatase Ammonia < 9 L Total Protein Albumin Globulin Albumin/Globulin Ratio Lipase Venous Blood Potassium Stool Occult Blood Blood Type A POSITIVE Antibody Screen Negative 10/06/18 10/07/18 10/07/18 21:22 00:56 00:56 WBC 9.4 RBC 2.62 L Hgb 8.4 L Hct 26.7 L MCV 101.8 H MCH 32.2 H MCHC 31.7 L RDW 18.7 H Plt Count 167 MPV 9.6 Neut % (Auto) 96.9 H Lymph % (Auto) 1.1 L Leon % (Auto) 1.8 Eos % (Auto) 0.0 Baso % (Auto) 0.2 Neut # (Auto) 9.1 H Lymph # (Auto) 0.1 L Leon # (Auto) 0.2 Eos # (Auto) 0.0 Baso # (Auto) 0.0 Neutrophils % (Manual) Band Neutrophils % Lymphocytes % (Manual) Reactive Lymphs % Monocytes % (Manual) Metamyelocytes % Myelocytes % Platelet Estimate PT 14.5 H INR 1.3 APTT 27 pO2 VBG pH VBG pCO2 VBG HCO3 VBG Total CO2 VBG O2 Sat (Calc) VBG Base Excess VBG Potassium Sodium Chloride Glucose Lactate Crit Value Called To Crit Value Called By Crit Value Read Back Blood Gas Notified Time Potassium Carbon Dioxide Anion Gap BUN Creatinine Est GFR ( Amer) Est GFR (Non-Af Amer) Random Glucose Calcium Magnesium Total Bilirubin AST ALT Alkaline Phosphatase Ammonia Total Protein Albumin Globulin Albumin/Globulin Ratio Lipase Venous Blood Potassium Stool Occult Blood Positive H Blood Type Antibody Screen Assessment & Plan - Assessment and Plan (Free Text) Assessment: Metastatic prostate ca: continue oral chemo -abdominal ascites: suspect chronic, had abdominal paracentesis, consider repeat paracentesis -leukocytosis: continu rx as sepsis syndrome with IVF and empirical abx, with s erial lactic, alvarez culture, CT abd (official results pending) -NPO -continue dvt ppx scds -continue PUD rx: protonix Patient remains hemodynamically stable -consider Gi consult and transfuse to keep hb/hct b.w 7-9 and trasnfuse to keep hemodynamic stability -repeat cbc, serial lactic pending, pending blood transfusion - Date & Time Date: 10/07/18 Time: 01:32
[2018-10-07] MEDS ORDERED: Piperacillin/Tazobact 3.375 GM in Sodium Chloride 100 ML IVPB SCH (03:15)
[2018-10-07 04:41] LABS: ANISOCYTOSIS SLIGHT; BANDS 65 % (0-2); LYMPHOCYTE 4 % (20-40); METAMYELOCYTE 6 % (0-0); MONOCYTE 2 % (0-10); MYELOCYTE 1 % (0-0); NEUTROPHIL 22 % (50-75); PLATELET CLUMPS PRESENT; PLATELET ESTIMATE NORMAL (NORMAL); TOTAL CELLS COUNTED 100
[2018-10-07] MEDS: Levothyroxine 50 MCG TAB PO SCH (06:20)
[2018-10-07] MEDS: Piperacillin/Tazobact 3.375 GM in Sodium Chloride 100 ML IVPB SCH ×3 (06:33→17:15)
--- NOTE | 2018-10-07 08:11 | PN ---
DATE: 10/07/2018 LOCATION: ICU 18. SUBJECTIVE: This 78-year-old male seen and examined initially for GI consultation on 10/06/2018 as requested by the admitting medical team, reexamined again early this morning in the intensive care unit with the intensive care staff with a complaint of again abdominal pain and reported rectal bleeding, fresh and old, with or without bowel movement in recent days. The patient still has complaint of abdominal distention with nausea and dyspepsia, but no reported vomiting or hematemesis. No chest pain, palpitation or significant complaint of shortness of breath. LABORATORY DATA: Most recent lab results today showed normal white blood cells, hemoglobin 8.4, hematocrit 27.7 with normal platelet count, PT of 14.5. Blood glucose level reported to be initially normal with lactic acid repeated today is 2.6, alkaline phosphatase of 575, total bilirubin 1.6 with low total protein. Abdomen and pelvic CAT scan report is pending. PHYSICAL EXAMINATION: GENERAL: A 78-year-old male, awake, alert, oriented. Complaining of generalized abdominal pain, mainly in the right and left lower quadrant. VITAL SIGNS: Afebrile with pulse of 76, respiratory rate 20 to 22, blood pressure of 104/54. HEENT: Showed pale dry oral mucoid membrane with mildly icteric sclerae bilaterally. HEART: Positive S1 and S2. ABDOMEN: Soft with [id number] distention with small amount of ascites. No mass or organomegaly could be appreciated. No rebound tenderness or guarding. EXTREMITIES: With lower extremities mild edematous changes. No clubbing or cyanosis. RECTAL: Guaiac positive stool with internal hemorrhoids. NEUROLOGIC: No reported new neurological deficits, sensory or motor. IMPRESSION: 1. Lower gastrointestinal blood loss versus upper gastrointestinal blood loss. 2. Rule out occult gastrointestinal malignancy. 3. More frequent bowel movement post Maple oral intake. The possibility of infectious colitis should be ruled in or out however including mainly salmonella and shigella. 4. To rule out occult gastrointestinal malignancy. 5. Known history of but not limited to peptic ulcer disease, hypertension, prostatic carcinoma, coronary artery disease with reported alcoholism before but not recently. 6. Malnutrition with hypoproteinemia. 7. Lactic acidosis, secondary to above. SUGGESTIONS: 1. Agree with your plan. 2. Complete stool workup. 3. Add Flagyl IV. 4. The patient may need endoscopic evaluation of the upper and lower GI tract only when he is more stable clinically and if there is subsequent drop of hemoglobin and hematocrit. 5. Further recommendation to follow. Halle Tran MD [facility] # [id number]
[2018-10-07 08:56] LABS: HEMOGLOBIN 8.2 g/dL (12.0-18.0); MEAN CORPUSCULAR HEMOGLOBIN 30.5 pg (27.0-31.0); MEAN CORPUSCULAR HGB CONC 32.4 g/dL (33.0-37.0); MEAN PLATELET VOLUME 8.6 fL (7.2-11.7); RBC 2.67 Mil/uL (4.40-5.90); RED CELL DISTRIBUTION WIDTH 21.9 % (11.5-14.5); WHITE BLOOD COUNT 9.9 K/uL (4.8-10.8)
--- NOTE | 2018-10-07 08:59 | CT ---
CT abdomen and pelvis HISTORY: Abdominal pain. Abdominal distention. COMPARISON: 06/12/2017 Technique: Multiple contiguous axial images were performed through the abdomen and pelvis without the use of intravenous contrast. Subsequently, sagittal coronal reformatted images were obtained. This CT exam was performed using one or more of the following dose reduction techniques: Automated exposure control, adjustment of the mA and/or kV according to patient size, and/or use of iterative reconstruction technique. Findings: Emphysematous changes. Mild scattered atelectasis at the lung bases. Limited evaluation without contrast. Moderate pericardial effusion. Coronary calcifications. Large amount of abdominal and pelvic ascites throughout the abdomen and pelvis. Nodular and cirrhotic contour of the liver which appears displaced medially from the ascites. Right hepatic parenchymal calcification. Distended gallbladder containing a large 1.2 centimeter calculus. Spleen is preserved. Adrenal glands are preserved. Fatty atrophy of the pancreas. Atherosclerotic calcification and plaque within the aorta. Moderate hiatal hernia. Distended stomach. Prominently dilated enhancing small bowel loops seen throughout the upper and mid abdomen. There appears to be an anterior right lateral abdominal wall hernia with the entering small bowel loops dilated and the exiting small bowel loop contracted. This would be concerning for an incarcerated hernia. Right kidney: No calculi or hydronephrosis. Left Kidney: No calculi or hydronephrosis. Urinary bladder is preserved. Colon is grossly preserved. Fecal retention in the right hemicolon. Appendix appears partially imaged, grossly preserved. Bilateral scrotal hydroceles. Shotty para-aortic and mesenteric lymph nodes. Diffuse sclerotic appearance of the bone which may represent diffuse sclerotic metastases in the setting of prostate cancer. Relative areas of lucency in the femoral heads and femoral shafts which may represent avascular necrosis. Impression: Prominently dilated enhancing small bowel loops seen throughout the upper and mid abdomen. There appears to be an anterior right lateral abdominal wall hernia with the entering small bowel loops dilated and the exiting small bowel loop contracted. This would be concerning for an incarcerated hernia. Large amount of abdominal and pelvic ascites throughout the abdomen and pelvis. Moderate pericardial effusion. Additional findings as above. A preliminary report was generated at 9:28 p.m. on 10/06/[address] Romulo Carter from [employer].
[2018-10-07 09:03] LABS: MEAN CELL VOLUME 94.2 fL (80.0-94.0)
[2018-10-07] MEDS: Morphine 15 mg SR Tab PO SCH ×2 (09:31→22:11)
[2018-10-07] MEDS: Pantoprazole 80 MG in Sodium Chloride 0.9% 100 ML IVP SCH (09:32)
[2018-10-07] MEDS ORDERED: Home Med 1 UNIT (Bicalutamide [Casodex] 50 MG) PO SCH (10:00)
[2018-10-07] MEDS ORDERED: ABIRATERONE ACETATE 250 MG PO SCH (10:00)
[2018-10-07] MEDS ORDERED: Sodium Chloride 0.9% 500 ML IV ONE (13:05)
--- NOTE | 2018-10-07 16:50 | CP.PCM.PN ---
Subjective - Date & Time of Evaluation Date of Evaluation: 10/07/18 Time of Evaluation: 08:00 - Subjective Subjective: Surgery: Dr. Mendoza Pt seen and examined. No acute events overnight. States he feels ok and abdominal pain has improved. He denies any episodes of nausea/vomiting. Pt admits to BM but denies flatus. Denies fevers/chills. Objective - Vital Signs/Intake and Output Vital Signs (last 24 hours): Temp Pulse Resp BP Pulse Ox 97.8 F 70 21 92/49 L 98 10/07/18 16:00 10/07/18 16:00 10/07/18 16:00 10/07/18 16:00 10/07/18 16:00 Intake and Output: 10/07/18 10/07/18 06:59 18:59 Intake Total 240 530 Output Total 200 450 Balance 40 80 - Medications Medications: Current Medications Amiodarone HCl (Cordarone) 200 mg PO DAILY [facility] Last Admin: 10/07/18 09:29 Dose: 200 mg Dicyclomine HCl (Bentyl) 20 mg PO TID [facility] Last Admin: 10/07/18 13:35 Dose: 20 mg Furosemide (Lasix) 20 mg PO DAILY [facility] Last Admin: 10/07/18 09:32 Dose: Not Given Home Med (Abiraterone Acetate [Zytiga]) 250 mg PO DAILY [facility] Home Med (Bicalutamide [Casodex]) 50 mg PO DAILY [facility] Piperacillin Sod/Tazobactam (Sod 3.375 gm/ Sodium Chloride) 100 mls @ 200 mls/hr IVPB Q6H [facility]; Protocol Last Admin: 10/07/18 13:34 Dose: 200 mls/hr Levothyroxine Sodium (Synthroid) 50 mcg PO DAILY@0630 [facility] Last Admin: 10/07/18 06:20 Dose: 50 mcg Morphine Sulfate (Morphine Extended Release Tab) 15 mg PO Q12 [facility] Last Admin: 10/07/18 09:31 Dose: Not Given Ondansetron HCl (Zofran Inj) 4 mg IVP Q6 PRN PRN Reason: Nausea/Vomiting Last Admin: 10/06/18 21:27 Dose: 4 mg Oxycodone/Acetaminophen (Percocet 5/325 Mg Tab) 1 tab PO Q6 PRN PRN Reason: Pain, moderate (4-7) Stop: 10/09/18 20:08 Last Admin: 10/06/18 21:10 Dose: 1 tab Pantoprazole Sodium (Protonix Inj) 40 mg IVP Q12 [facility] Last Admin: 10/07/18 10:19 Dose: 40 mg Prednisone (Prednisone Tab) 5 mg PO BID [facility] Last Admin: 10/07/18 09:34 Dose: 5 mg Rosuvastatin Calcium (Crestor) 5 mg PO [facility] Tamsulosin HCl (Flomax) 0.4 mg PO DAILY [facility] Last Admin: 10/07/18 09:29 Dose: 0.4 mg - Labs Labs: 10/07/18 08:34 10/06/18 19:28 PT 14.5 SECONDS (9.7-12.2) H 10/07/18 00:56 INR 1.3 10/07/18 00:56 APTT 27 SECONDS (21-34) 10/07/18 00:56 - Constitutional Appears: No Acute Distress - Head Exam Head Exam: ATRAUMATIC, NORMOCEPHALIC - ENT Exam ENT Exam: Mucous Membranes Moist - Respiratory Exam Respiratory Exam: NORMAL BREATHING PATTERN - Cardiovascular Exam Cardiovascular Exam: RRR - GI/Abdominal Exam GI & Abdominal Exam: Distended (2/2 to ascites ), Soft. absent: Guarding, Tenderness, Rebound Additional comments: reducible umbilical hernia - Neurological Exam Neurological Exam: Alert, Awake - Skin Skin Exam: Dry, Warm Assessment and Plan - Assessment and Plan (Free Text) Assessment: 78M with ascites & reducible umbilical hernia; resolving SBO Plan: - obstructive series this AM showing improvement in SB dilation - ok to start CLD - advance diet slowly as tolerated - no plan for surgical intervention at this time until ascites resolves/better controlled - d/w Dr. Reji Lima
--- NOTE | 2018-10-07 19:45 | RAD ---
Obstructive series four views HISTORY: Small bowel obstruction. Comparison: CT dated 10/06/2018 Findings: Diffuse sclerosis throughout the osseous structures concerning metastatic disease. Venous congestion. Marked cardiomegaly. Right paratracheal opacity may represent prominent vasculature this is most prominent at the right lung apex. Somewhat nodular density in the right infrahilar region. Multiple dilated loops of small bowel seen throughout the abdomen concerning for a small obstruction. Calcified phleboliths in the pelvis. Impression: Findings concerning for small bowel obstruction. Findings suggestive for diffuse skeletal metastases.
--- NOTE | 2018-10-07 20:59 | CP.PCM.CON ---
History of Present Illness - History of Present Illness History of Present Illness: cc: CHF 78 year old male with PMHx Prostate CA with mets to bone, CAD, Atrial flutter s/p ablation, gastritis, HTN who presents complaining of abdominal pain and abdominal distension. Patient states that he routinely gets paracentesis for recurrent ascites. (+) abdominal pain below the umbilicus. Patient denies n/v/c/d. (+)blood in stool. 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 Denies alcohol, drugs. Fam Hx: Denies PMD: Dr. Haro Heme/onc: Dr. Adamson Review of Systems - Review of Systems All systems: reviewed and no additional remarkable complaints except Physical Exam - Head Exam Head Exam: ATRAUMATIC, NORMAL INSPECTION, NORMOCEPHALIC - Eye Exam Eye Exam: EOMI, Normal appearance Pupil Exam: NORMAL ACCOMODATION - ENT Exam ENT Exam: Mucous Membranes Moist - Neck Exam Neck exam: Positive for: Normal Inspection - Respiratory Exam Respiratory Exam: Clear to Auscultation Bilateral, NORMAL BREATHING PATTERN - Cardiovascular Exam Cardiovascular Exam: REGULAR RHYTHM, +S1, +S2 - GI/Abdominal Exam GI & Abdominal Exam: Distended, Hernia, Hypoactive Bowel Sounds, Soft. absent: Firm, Guarding, Pulsatile Mass, Rebound, Rigid, Tenderness - Rectal Exam Rectal Exam: NORMAL INSPECTION - Extremities Exam Extremities exam: Positive for: normal inspection Additional comments: atrophy - Neurological Exam Neurological exam: Alert - Psychiatric Exam Psychiatric exam: Normal Affect Past Patient History - Infectious Disease Hx of Infectious Diseases: None - Tetanus Immunizations Tetanus Immunization: Unknown - Past Medical History & Family History Past Medical History?: Yes - Past Social History Smoking Status: Smoker Currrent Status Unknown - CARDIAC Hx Congestive Heart Failure: Yes Hx Hypertension: Yes - PULMONARY Hx Respiratory Disorders: No - NEUROLOGICAL Hx Neurological Disorder: No - HEENT Hx HEENT Problems: No - RENAL Hx Chronic Kidney Disease: No - ENDOCRINE/METABOLIC Hx Endocrine Disorders: No - HEMATOLOGICAL/ONCOLOGICAL Hx Blood Disorders: Yes Hx Cancer: Yes (PROSTATE) Hx Chemotherapy: Yes - INTEGUMENTARY Hx Dermatological Problems: No - MUSCULOSKELETAL/RHEUMATOLOGICAL Hx Falls: No - GASTROINTESTINAL Hx Gall Bladder Disease: Yes Hx Gastritis: Yes - GENITOURINARY/GYNECOLOGICAL Hx Genitourinary Disorders: No - PSYCHIATRIC Hx Substance Use: No - SURGICAL HISTORY Hx Surgeries: Yes Other/Comment: hernia repair 03/20/17 - ANESTHESIA Hx Anesthesia: Yes Hx Anesthesia Reactions: No Hx Malignant Hyperthermia: No Meds Allergies/Adverse Reactions: Allergies Allergy/AdvReac Type Severity Reaction Status Date / Time No Known Allergies Allergy Verified 10/06/18 19:23 - Medications Medications: Current Medications Amiodarone HCl (Cordarone) 200 mg PO DAILY [facility] Last Admin: 10/07/18 09:29 Dose: 200 mg Dicyclomine HCl (Bentyl) 20 mg PO TID [facility] Last Admin: 10/07/18 17:13 Dose: 20 mg Furosemide (Lasix) 20 mg PO DAILY [facility] Last Admin: 10/07/18 09:32 Dose: Not Given Home Med (Abiraterone Acetate [Zytiga]) 250 mg PO DAILY [facility] Home Med (Bicalutamide [Casodex]) 50 mg PO DAILY [facility] Piperacillin Sod/Tazobactam (Sod 3.375 gm/ Sodium Chloride) 100 mls @ 200 mls/hr IVPB Q6H [facility]; Protocol Last Admin: 10/07/18 17:15 Dose: 200 mls/hr Levothyroxine Sodium (Synthroid) 50 mcg PO DAILY@0630 [facility] Last Admin: 10/07/18 06:20 Dose: 50 mcg Morphine Sulfate (Morphine Extended Release Tab) 15 mg PO Q12 [facility] Last Admin: 10/07/18 09:31 Dose: Not Given Ondansetron HCl (Zofran Inj) 4 mg IVP Q6 PRN PRN Reason: Nausea/Vomiting Last Admin: 10/06/18 21:27 Dose: 4 mg Oxycodone/Acetaminophen (Percocet 5/325 Mg Tab) 1 tab PO Q6 PRN PRN Reason: Pain, moderate (4-7) Stop: 10/09/18 20:08 Last Admin: 10/06/18 21:10 Dose: 1 tab Pantoprazole Sodium (Protonix Inj) 40 mg IVP Q12 [facility] Last Admin: 10/07/18 10:19 Dose: 40 mg Prednisone (Prednisone Tab) 5 mg PO BID [facility] Last Admin: 10/07/18 17:13 Dose: 5 mg Rosuvastatin Calcium (Crestor) 5 mg PO HS [facility] Tamsulosin HCl (Flomax) 0.4 mg PO DAILY [facility] Last Admin: 10/07/18 09:29 Dose: 0.4 mg Results - Vital Signs Recent Vital Signs: Last Vital Signs Temp 97.8 F 10/07/18 16:00 Pulse 72 10/07/18 19:00 Resp 24 10/07/18 19:00 BP 92/52 L 10/07/18 19:00 Pulse Ox 100 10/07/18 19:00 - Labs Result Diagrams: 10/07/18 08:34 10/06/18 19:28 Labs: Laboratory Results - last 24 hr 10/06/18 10/06/18 10/06/18 00:01 19:45 21:22 WBC RBC Hgb Hct MCV MCH MCHC RDW Plt Count MPV Neut % (Auto) Lymph % (Auto) [place] % (Auto) Eos % (Auto) Baso % (Auto) Neut # (Auto) Lymph # (Auto) [place] # (Auto) Eos # (Auto) Baso # (Auto) Neutrophils % (Manual) Band Neutrophils % Lymphocytes % (Manual) Monocytes % (Manual) Metamyelocytes % Myelocytes % Platelet Estimate Plt Clumps, EDTA Anisocytosis (manual) PT INR APTT pO2 27 L VBG pH 7.23 L VBG pCO2 34 L VBG HCO3 13.7 VBG Total CO2 15.2 L VBG O2 Sat (Calc) 41.5 VBG Base Excess -12.3 L VBG Potassium 4.1 Sodium 145.0 Chloride 110.0 H Glucose 84 Lactate 5.5 H* Crit Value Called To Cher arrieta/rn Crit Value Called By Alonzo sorto/rt Crit Value Read Back Y Blood Gas Notified Time 10 Lactic Acid Venous Blood Potassium 4.1 Stool Occult Blood Positive H Stool Leukocytes, Qual Blood Type A POSITIVE Antibody Screen Negative 10/07/18 10/07/18 10/07/18 00:56 00:56 02:26 WBC 9.4 RBC 2.62 L Hgb 8.4 L Hct 26.7 L MCV 101.8 H MCH 32.2 H MCHC 31.7 L RDW 18.7 H Plt Count 167 MPV 9.6 Neut % (Auto) 96.9 H Lymph % (Auto) 1.1 L [place] % (Auto) 1.8 Eos % (Auto) 0.0 Baso % (Auto) 0.2 Neut # (Auto) 9.1 H Lymph # (Auto) 0.1 L [place] # (Auto) 0.2 Eos # (Auto) 0.0 Baso # (Auto) 0.0 Neutrophils % (Manual) 22 L Band Neutrophils % 65 H* Lymphocytes % (Manual) 4 L Monocytes % (Manual) 2 Metamyelocytes % 6 H Myelocytes % 1 H Platelet Estimate Normal Plt Clumps, EDTA Present Anisocytosis (manual) Slight PT 14.5 H INR 1.3 APTT 27 pO2 VBG pH VBG pCO2 VBG HCO3 VBG Total CO2 VBG O2 Sat (Calc) VBG Base Excess VBG Potassium Sodium Chloride Glucose Lactate Crit Value Called To Crit Value Called By Crit Value Read Back Blood Gas Notified Time Lactic Acid 3.8 H Venous Blood Potassium Stool Occult Blood Stool Leukocytes, Qual Blood Type Antibody Screen 10/07/18 10/07/18 10/07/18 04:27 08:34 08:34 WBC 9.9 RBC 2.67 L Hgb 8.2 L Hct 25.2 L MCV 94.2 H D MCH 30.5 MCHC 32.4 L RDW 21.9 H Plt Count 131 MPV 8.6 Neut % (Auto) Lymph % (Auto) [place] % (Auto) Eos % (Auto) Baso % (Auto) Neut # (Auto) Lymph # (Auto) [place] # (Auto) Eos # (Auto) Baso # (Auto) Neutrophils % (Manual) Band Neutrophils % Lymphocytes % (Manual) Monocytes % (Manual) Metamyelocytes % Myelocytes % Platelet Estimate Plt Clumps, EDTA Anisocytosis (manual) PT INR APTT pO2 VBG pH VBG pCO2 VBG HCO3 VBG Total CO2 VBG O2 Sat (Calc) VBG Base Excess VBG Potassium Sodium Chloride Glucose Lactate Crit Value Called To Crit Value Called By Crit Value Read Back Blood Gas Notified Time Lactic Acid 2.6 H 1.5 Venous Blood Potassium Stool Occult Blood Stool Leukocytes, Qual Blood Type Antibody Screen 10/07/18 10/07/18 11:48 11:48 WBC RBC Hgb Hct MCV MCH MCHC RDW Plt Count MPV Neut % (Auto) Lymph % (Auto) [place] % (Auto) Eos % (Auto) Baso % (Auto) Neut # (Auto) Lymph # (Auto) [place] # (Auto) Eos # (Auto) Baso # (Auto) Neutrophils % (Manual) Band Neutrophils % Lymphocytes % (Manual) Monocytes % (Manual) Metamyelocytes % Myelocytes % Platelet Estimate Plt Clumps, EDTA Anisocytosis (manual) PT INR APTT pO2 VBG pH VBG pCO2 VBG HCO3 VBG Total CO2 VBG O2 Sat (Calc) VBG Base Excess VBG Potassium Sodium Chloride Glucose Lactate Crit Value Called To Crit Value Called By Crit Value Read Back Blood Gas Notified Time Lactic Acid Venous Blood Potassium Stool Occult Blood Positive H Stool Leukocytes, Qual Negative Blood Type Antibody Screen Assessment & Plan - Assessment and Plan (Free Text) Assessment: Chronic systolic CHF HTN
--- NOTE | 2018-10-07 21:07 | CP.PCM.HP ---
Present on Admission - Present on Admission Any Indicators Present on Admission: No Past Patient History - Infectious Disease Hx of Infectious Diseases: None - Tetanus Immunizations Tetanus Immunization: Unknown - Past Medical History & Family History Past Medical History?: Yes - Past Social History Smoking Status: Smoker Currrent Status Unknown - CARDIAC Hx Congestive Heart Failure: Yes Hx Hypertension: Yes - PULMONARY Hx Respiratory Disorders: No - NEUROLOGICAL Hx Neurological Disorder: No - HEENT Hx HEENT Problems: No - RENAL Hx Chronic Kidney Disease: No - ENDOCRINE/METABOLIC Hx Endocrine Disorders: No - HEMATOLOGICAL/ONCOLOGICAL Hx Blood Disorders: Yes Hx Cancer: Yes (PROSTATE) Hx Chemotherapy: Yes - INTEGUMENTARY Hx Dermatological Problems: No - MUSCULOSKELETAL/RHEUMATOLOGICAL Hx Falls: No - GASTROINTESTINAL Hx Gall Bladder Disease: Yes Hx Gastritis: Yes - GENITOURINARY/GYNECOLOGICAL Hx Genitourinary Disorders: No - PSYCHIATRIC Hx Substance Use: No - SURGICAL HISTORY Hx Surgeries: Yes Other/Comment: hernia repair 03/20/17 - ANESTHESIA Hx Anesthesia: Yes Hx Anesthesia Reactions: No Hx Malignant Hyperthermia: No Meds Allergies/Adverse Reactions: Allergies Allergy/AdvReac Type Severity Reaction Status Date / Time No Known Allergies Allergy Verified 10/06/18 19:23 Results - Vital Signs Recent Vital Signs: Last Vital Signs Temp 97.8 F 10/07/18 16:00 Pulse 72 10/07/18 19:00 Resp 24 10/07/18 19:00 BP 92/52 L 10/07/18 19:00 Pulse Ox 100 10/07/18 19:00 - Labs Result Diagrams: 10/07/18 08:34 10/06/18 19:28 Labs: Laboratory Results - last 24 hr 10/06/18 10/06/18 10/06/18 00:01 19:45 21:22 WBC RBC Hgb Hct MCV MCH MCHC RDW Plt Count MPV Neut % (Auto) Lymph % (Auto) [place] % (Auto) Eos % (Auto) Baso % (Auto) Neut # (Auto) Lymph # (Auto) [place] # (Auto) Eos # (Auto) Baso # (Auto) Neutrophils % (Manual) Band Neutrophils % Lymphocytes % (Manual) Monocytes % (Manual) Metamyelocytes % Myelocytes % Platelet Estimate Plt Clumps, EDTA Anisocytosis (manual) PT INR APTT pO2 27 L VBG pH 7.23 L VBG pCO2 34 L VBG HCO3 13.7 VBG Total CO2 15.2 L VBG O2 Sat (Calc) 41.5 VBG Base Excess -12.3 L VBG Potassium 4.1 Sodium 145.0 Chloride 110.0 H Glucose 84 Lactate 5.5 H* Crit Value Called To Cher arrieta/rn Crit Value Called By Alonzo sorto/rt Crit Value Read Back Y Blood Gas Notified Time 10 Lactic Acid Venous Blood Potassium 4.1 Stool Occult Blood Positive H Stool Leukocytes, Qual Blood Type A POSITIVE Antibody Screen Negative 10/07/18 10/07/18 10/07/18 00:56 00:56 02:26 WBC 9.4 RBC 2.62 L Hgb 8.4 L Hct 26.7 L MCV 101.8 H MCH 32.2 H MCHC 31.7 L RDW 18.7 H Plt Count 167 MPV 9.6 Neut % (Auto) 96.9 H Lymph % (Auto) 1.1 L [place] % (Auto) 1.8 Eos % (Auto) 0.0 Baso % (Auto) 0.2 Neut # (Auto) 9.1 H Lymph # (Auto) 0.1 L [place] # (Auto) 0.2 Eos # (Auto) 0.0 Baso # (Auto) 0.0 Neutrophils % (Manual) 22 L Band Neutrophils % 65 H* Lymphocytes % (Manual) 4 L Monocytes % (Manual) 2 Metamyelocytes % 6 H Myelocytes % 1 H Platelet Estimate Normal Plt Clumps, EDTA Present Anisocytosis (manual) Slight PT 14.5 H INR 1.3 APTT 27 pO2 VBG pH VBG pCO2 VBG HCO3 VBG Total CO2 VBG O2 Sat (Calc) VBG Base Excess VBG Potassium Sodium Chloride Glucose Lactate Crit Value Called To Crit Value Called By Crit Value Read Back Blood Gas Notified Time Lactic Acid 3.8 H Venous Blood Potassium Stool Occult Blood Stool Leukocytes, Qual Blood Type Antibody Screen 10/07/18 10/07/18 10/07/18 04:27 08:34 08:34 WBC 9.9 RBC 2.67 L Hgb 8.2 L Hct 25.2 L MCV 94.2 H D MCH 30.5 MCHC 32.4 L RDW 21.9 H Plt Count 131 MPV 8.6 Neut % (Auto) Lymph % (Auto) [place] % (Auto) Eos % (Auto) Baso % (Auto) Neut # (Auto) Lymph # (Auto) [place] # (Auto) Eos # (Auto) Baso # (Auto) Neutrophils % (Manual) Band Neutrophils % Lymphocytes % (Manual) Monocytes % (Manual) Metamyelocytes % Myelocytes % Platelet Estimate Plt Clumps, EDTA Anisocytosis (manual) PT INR APTT pO2 VBG pH VBG pCO2 VBG HCO3 VBG Total CO2 VBG O2 Sat (Calc) VBG Base Excess VBG Potassium Sodium Chloride Glucose Lactate Crit Value Called To Crit Value Called By Crit Value Read Back Blood Gas Notified Time Lactic Acid 2.6 H 1.5 Venous Blood Potassium Stool Occult Blood Stool Leukocytes, Qual Blood Type Antibody Screen 10/07/18 10/07/18 11:48 11:48 WBC RBC Hgb Hct MCV MCH MCHC RDW Plt Count MPV Neut % (Auto) Lymph % (Auto) [place] % (Auto) Eos % (Auto) Baso % (Auto) Neut # (Auto) Lymph # (Auto) [place] # (Auto) Eos # (Auto) Baso # (Auto) Neutrophils % (Manual) Band Neutrophils % Lymphocytes % (Manual) Monocytes % (Manual) Metamyelocytes % Myelocytes % Platelet Estimate Plt Clumps, EDTA Anisocytosis (manual) PT INR APTT pO2 VBG pH VBG pCO2 VBG HCO3 VBG Total CO2 VBG O2 Sat (Calc) VBG Base Excess VBG Potassium Sodium Chloride Glucose Lactate Crit Value Called To Crit Value Called By Crit Value Read Back Blood Gas Notified Time Lactic Acid Venous Blood Potassium Stool Occult Blood Positive H Stool Leukocytes, Qual Negative Blood Type Antibody Screen
[2018-10-08] MEDS: Levothyroxine 50 MCG TAB PO SCH (05:31)
[2018-10-08] MEDS: Piperacillin/Tazobact 3.375 GM in Sodium Chloride 100 ML IVPB SCH ×5 (05:55→23:40)
[2018-10-08 06:14] LABS: BASO % 0.1 % (0.0-2.0); LYMPH # 0.2 K/uL (1.0-4.3); LYMPH % 2.2 % (20.0-40.0); MEAN CELL VOLUME 94.7 fL (80.0-94.0); MEAN CORPUSCULAR HEMOGLOBIN 30.9 pg (27.0-31.0); MEAN CORPUSCULAR HGB CONC 32.6 g/dL (33.0-37.0); MEAN PLATELET VOLUME 9.2 fL (7.2-11.7); MONO # 0.4 K/uL (0.0-0.8); MONO % 4.1 % (0.0-10.0); NEUT # 10.2 K/uL (1.8-7.0); NEUT % 93.6 % (50.0-75.0); NRBC % 0.1 % (0.0-2.0); PLATELET COUNT 125 K/uL (130-400); RBC 2.58 Mil/uL (4.40-5.90); RED CELL DISTRIBUTION WIDTH 22.4 % (11.5-14.5); WHITE BLOOD COUNT 10.9 K/uL (4.8-10.8)
[2018-10-08 06:32] LABS: ALB/GLOB RATIO 1.2 (1.0-2.1); ALBUMIN 2.8 g/dL (3.5-5.0); CALCIUM 6.8 mg/dl (8.6-10.4)
--- NOTE | 2018-10-08 08:18 | HP ---
CHIEF COMPLAINT: Lower abdominal pain for two days, distention, and then bleeding. HISTORY OF PRESENT ILLNESS: The patient is a 78-year-old -[place] male with stage IV metastatic prostate cancer, on chemotherapy, and he has history of cirrhosis of liver with prior paracentesis, coronary artery disease, congestive heart failure, gastritis, arthritis, and hypertension. The patient has been recently discharged from [facility] where he was admitted with back pain, found to have metastatic bone disease and prostate cancer. The patient was doing fine until two days ago, he started having lower abdominal distention in suprapubic area increasing gradually along with there was pain, pain was throbbing in nature, and it happened after he ate a meat ball, and then the patient noticed all bloody stool and according to him was not a very large quantity, but he felt weak, he felt dizzy, and he denied taking any aspirin, NSAID. He denied any history of prior trauma, loss of consciousness. He denied any fevers, chills, or night sweats. He denied any nausea or vomiting. He denied any history of polyuria or polydipsia. He has congestive heart failure; however, his shortness of breath has been at a baseline. He feels palpitations at times. He denies any nausea or vomiting. He denies any history of polyuria or polydipsia. He denies any sneezing, itchy eyes or itchy nose. He gets back pain, hip pain, and leg pains. He denied any tingling, numbness, or paresthesias. He denies any involuntary movements of the limbs. He denies any history of fevers or chills. PAST MEDICAL HISTORY: Stage IV prostate cancer with bony metastasis, congestive heart failure, coronary artery disease, hypertension, gallbladder disease. CURRENT MEDICATIONS: At home, he is on Percocet, MS Contin, Zytiga, Lasix, prednisone, Synthroid, Flomax, Zocor, famotidine, Bentyl, Casodex, and amiodarone. FAMILY HISTORY: Noncontributory. SOCIAL HISTORY: Nonsmoker, non-ETOH user. PHYSICAL EXAMINATION: GENERAL: An elderly male who is not in distress, is now tachycardic. VITAL SIGNS: Blood pressure 89/56, pulse 74, respiratory rate 20, and temperature 97.8. SKIN: Pale, poor turgor. HEENT: Positive pallor. Negative jaundice. Extraocular movements are intact. NECK: Supple. Positive JVD. Negative thyromegaly. Negative carotid bruits. CHEST: Bilaterally symmetrical expansion. No masses. No gynecomastia. LUNGS: Bilateral basilar crepitations. No rhonchi. Bilateral equal air entry. CARDIOVASCULAR: PMI not localized. S1 and S2, plus S3 positive. A 2/6 ejection systolic murmur at the apex. ABDOMEN: Soft. Nontender. Bowel sounds are exaggerating. RECTAL: No masses. Positive . EXTREMITIES: No clubbing, cyanosis, or edema. CENTRAL NERVOUS SYSTEM: Awake, alert and oriented x3. Cranial nerves II through XII are normal. Power 5/5 x4. Plantars are downgoing. ASSESSMENT: 1. Lower abdominal pain with bleeding, rule out diverticulitis with bleeding versus diverticulosis with bleeding versus colitis, which could be infectious due to eating wrong food, could be ischemic colitis. 2. Congestive heart failure, chronic. 3. Hypertension. 4. Cirrhosis of liver with ascites. PLAN: Admit. The patient is not actively bleeding now. His hemoglobin and hematocrit has been stabilized, and he is to be seen by GI. Gregory Thrasher MD
[2018-10-08] MEDS ORDERED: Lidocaine Hydrochloride 0 ML INJ ONE (08:43)
[2018-10-08 08:53] LABS: ANISOCYTOSIS SLIGHT; BANDS 37 % (0-2); LYMPHOCYTE 2 % (20-40); MONOCYTE 2 % (0-10); NEUTROPHIL 59 % (50-75); PLATELET ESTIMATE SLIGHTLY DECREASED (NORMAL); POIKILOCYTOSIS SLIGHT; TOTAL CELLS COUNTED 100
[2018-10-08 08:54] LABS: BURR CELLS SLIGHT; HYPOCHROMIC MODERATE; MICROCYTOSIS SLIGHT; TARGET CELLS SLIGHT
[2018-10-08] MEDS: Morphine 15 mg SR Tab PO SCH (09:51)
--- NOTE | 2018-10-08 10:15 | CP.PCM.PN ---
<Leobardo Brewer - Last Filed: 10/08/18 18:21> Subjective - Date & Time of Evaluation Date of Evaluation: 10/08/18 Time of Evaluation: 10:14 - Subjective Subjective: Dr. Pan Cardiology Service Patient seen and examined at bedside. Per nursing no acute events occurred overnight. Patient denies any chest pain, shortness of breath, fevers, chills, nausea, vomiting, headaches, syncopal episodes, or any other complaints. Objective - Vital Signs/Intake and Output Vital Signs (last 24 hours): Temp Pulse Resp BP Pulse Ox 99.0 F 68 11 L 104/58 L 95 10/08/18 08:00 10/08/18 09:08 10/08/18 09:08 10/08/18 09:51 10/08/18 09:08 Intake and Output: 10/08/18 10/08/18 06:59 18:59 Intake Total 540 Output Total 450 Balance 90 - Medications Medications: Current Medications Amiodarone HCl (Cordarone) 200 mg PO DAILY [facility] Last Admin: 10/08/18 09:53 Dose: 200 mg Dicyclomine HCl (Bentyl) 20 mg PO TID [facility] Last Admin: 10/08/18 09:50 Dose: 20 mg Furosemide (Lasix) 20 mg PO DAILY [facility] Last Admin: 10/08/18 09:51 Dose: Not Given Home Med (Abiraterone Acetate [Zytiga]) 250 mg PO DAILY [facility] Home Med (Bicalutamide [Casodex]) 50 mg PO DAILY [facility] Piperacillin Sod/Tazobactam (Sod 3.375 gm/ Sodium Chloride) 100 mls @ 200 mls/hr IVPB Q6H [facility]; Protocol Last Admin: 10/08/18 05:55 Dose: 200 mls/hr Levothyroxine Sodium (Synthroid) 50 mcg PO DAILY@0630 [facility] Last Admin: 10/08/18 05:31 Dose: Not Given Morphine Sulfate (Morphine Extended Release Tab) 15 mg PO Q12 [facility] Last Admin: 10/08/18 09:51 Dose: Not Given Ondansetron HCl (Zofran Inj) 4 mg IVP Q6 PRN PRN Reason: Nausea/Vomiting Last Admin: 10/06/18 21:27 Dose: 4 mg Oxycodone/Acetaminophen (Percocet 5/325 Mg Tab) 1 tab PO Q6 PRN PRN Reason: Pain, moderate (4-7) Stop: 10/09/18 20:08 Last Admin: 10/06/18 21:10 Dose: 1 tab Pantoprazole Sodium (Protonix Inj) 40 mg IVP Q12 [facility] Last Admin: 10/08/18 09:51 Dose: 40 mg Prednisone (Prednisone Tab) 5 mg PO BID [facility] Last Admin: 10/08/18 09:51 Dose: 5 mg Rosuvastatin Calcium (Crestor) 5 mg PO HS [facility] Last Admin: 10/07/18 22:09 Dose: 5 mg Tamsulosin HCl (Flomax) 0.4 mg PO DAILY [facility] Last Admin: 10/08/18 09:51 Dose: 0.4 mg - Labs Labs: 10/08/18 06:07 10/08/18 06:05 PT 14.5 SECONDS (9.7-12.2) H 10/07/18 00:56 INR 1.3 10/07/18 00:56 APTT 27 SECONDS (21-34) 10/07/18 00:56 - Head Exam Head Exam: ATRAUMATIC, NORMAL INSPECTION - Eye Exam Eye Exam: EOMI, Normal appearance, PERRL Pupil Exam: NORMAL ACCOMODATION - ENT Exam ENT Exam: Mucous Membranes Moist, Normal Oropharynx - Respiratory Exam Respiratory Exam: Clear to Ausculation Bilateral, NORMAL BREATHING PATTERN - Cardiovascular Exam Cardiovascular Exam: REGULAR RHYTHM, +S1, +S2 - GI/Abdominal Exam GI & Abdominal Exam: Soft, Normal Bowel Sounds. absent: Hyperactive Bowel Sounds - Neurological Exam Neurological Exam: Alert, Awake - Psychiatric Exam Psychiatric exam: Normal Affect, Normal Mood Assessment and Plan - Assessment and Plan (Free Text) Assessment: 78 year old male with a past medical history of prostate cancer, cad, atrial flutter s/p ablation, gastritis, and hypertension admitted for small bowel obstruction. Plan: Chronic CHF Last echo (01/2018) :EF 15% Severe tricsupid regurgitations Echo taken. Pending final read Cardiac Cath -Optimize medical managment Medications: Lasix 20mg PO Daily Amiodarone 200mg PO Daily Crestor 5mg PO [facility] Hypothyroidism Medications: Synthroid 50mcg PO DAILY BPH Medications: Flomax .4mg PO Daily SBO -Surgery consulted. Help appreciated. -Passing stool and gas. Medications: Percocet 1 tab PO Q6 PRN Plan discussed with Attending Dr. Pan. Leobardo Brewer, PGY-2 <Romulo Pan - Last Filed: 10/08/18 22:21> Objective - Vital Signs/Intake and Output Vital Signs (last 24 hours): Temp Pulse Resp BP Pulse Ox 98.4 F 73 18 99/61 L 99 10/08/18 20:00 10/08/18 21:09 10/08/18 21:09 10/08/18 21:09 10/08/18 21:09 Intake and Output: 10/08/18 10/09/18 18:59 06:59 Intake Total 600 0 Output Total 375 Balance 225 0 - Medications Medications: Current Medications Amiodarone HCl (Cordarone) 200 mg PO DAILY [facility] Last Admin: 10/08/18 09:53 Dose: 200 mg Furosemide (Lasix) 20 mg PO DAILY [facility] Last Admin: 10/08/18 09:51 Dose: Not Given Home Med (Abiraterone Acetate [Zytiga]) 250 mg PO DAILY [facility] Home Med (Bicalutamide [Casodex]) 50 mg PO DAILY [facility] Piperacillin Sod/Tazobactam (Sod 3.375 gm/ Sodium Chloride) 100 mls @ 200 mls/hr IVPB Q6H [facility]; Protocol Last Admin: 10/08/18 17:35 Dose: 200 mls/hr Levothyroxine Sodium (Synthroid) 50 mcg PO DAILY@0630 [facility] Last Admin: 10/08/18 05:31 Dose: Not Given Morphine Sulfate (Morphine Immediate Release Tab) 15 mg PO Q6H PRN PRN Reason: Pain, severe (8-10) Ondansetron HCl (Zofran Inj) 4 mg IVP Q6 PRN PRN Reason: Nausea/Vomiting Last Admin: 10/06/18 21:27 Dose: 4 mg Oxycodone/Acetaminophen (Percocet 5/325 Mg Tab) 1 tab PO Q6 PRN PRN Reason: Pain, moderate (4-7) Stop: 10/09/18 20:08 Last Admin: 10/06/18 21:10 Dose: 1 tab Pantoprazole Sodium (Protonix Inj) 40 mg IVP Q12 [facility] Last Admin: 10/08/18 21:38 Dose: 40 mg Prednisone (Prednisone Tab) 5 mg PO BID [facility] Last Admin: 10/08/18 17:35 Dose: 5 mg Rosuvastatin Calcium (Crestor) 5 mg PO HS [facility] Last Admin: 10/08/18 21:38 Dose: 5 mg Tamsulosin HCl (Flomax) 0.4 mg PO DAILY [facility] Last Admin: 10/08/18 09:51 Dose: 0.4 mg - Labs Labs: 10/08/18 06:07 10/08/18 06:05 PT 14.5 SECONDS (9.7-12.2) H 10/07/18 00:56 INR 1.3 10/07/18 00:56 APTT 27 SECONDS (21-34) 10/07/18 00:56 Assessment and Plan - Assessment and Plan (Free Text) Plan: Patient seen and evaluated personally by me. Plan of care d/w the medical r esident and as documented
--- NOTE | 2018-10-08 11:28 | CP.PCM.PN ---
Subjective - Date & Time of Evaluation Date of Evaluation: 10/08/18 Time of Evaluation: 06:35 - Subjective Subjective: Surgery Consult note. Dr. Mendoza Pt seen and examined at bedside this morning. Denies any complaints. No N/V/D. No abdominal pain. Umbilical hernia soft. Objective - Vital Signs/Intake and Output Vital Signs (last 24 hours): Temp Pulse Resp BP Pulse Ox 99.0 F 70 20 97/78 L 95 10/08/18 08:00 10/08/18 11:00 10/08/18 11:00 10/08/18 11:09 10/08/18 11:00 Intake and Output: 10/08/18 10/08/18 06:59 18:59 Intake Total 540 100 Output Total 450 Balance 90 100 - Medications Medications: Current Medications Amiodarone HCl (Cordarone) 200 mg PO DAILY [facility] Last Admin: 10/08/18 09:53 Dose: 200 mg Dicyclomine HCl (Bentyl) 20 mg PO TID [facility] Last Admin: 10/08/18 09:50 Dose: 20 mg Furosemide (Lasix) 20 mg PO DAILY [facility] Last Admin: 10/08/18 09:51 Dose: Not Given Home Med (Abiraterone Acetate [Zytiga]) 250 mg PO DAILY [facility] Home Med (Bicalutamide [Casodex]) 50 mg PO DAILY [facility] Piperacillin Sod/Tazobactam (Sod 3.375 gm/ Sodium Chloride) 100 mls @ 200 mls/hr IVPB Q6H [facility]; Protocol Last Admin: 10/08/18 05:55 Dose: 200 mls/hr Levothyroxine Sodium (Synthroid) 50 mcg PO DAILY@0630 [facility] Last Admin: 10/08/18 05:31 Dose: Not Given Morphine Sulfate (Morphine Extended Release Tab) 15 mg PO Q12 [facility] Last Admin: 10/08/18 09:51 Dose: Not Given Ondansetron HCl (Zofran Inj) 4 mg IVP Q6 PRN PRN Reason: Nausea/Vomiting Last Admin: 10/06/18 21:27 Dose: 4 mg Oxycodone/Acetaminophen (Percocet 5/325 Mg Tab) 1 tab PO Q6 PRN PRN Reason: Pain, moderate (4-7) Stop: 10/09/18 20:08 Last Admin: 10/06/18 21:10 Dose: 1 tab Pantoprazole Sodium (Protonix Inj) 40 mg IVP Q12 [facility] Last Admin: 10/08/18 09:51 Dose: 40 mg Prednisone (Prednisone Tab) 5 mg PO BID [facility] Last Admin: 10/08/18 09:51 Dose: 5 mg Rosuvastatin Calcium (Crestor) 5 mg PO HS [facility] Last Admin: 10/07/18 22:09 Dose: 5 mg Tamsulosin HCl (Flomax) 0.4 mg PO DAILY [facility] Last Admin: 10/08/18 09:51 Dose: 0.4 mg - Labs Labs: 10/08/18 06:07 10/08/18 06:05 PT 14.5 SECONDS (9.7-12.2) H 10/07/18 00:56 INR 1.3 10/07/18 00:56 APTT 27 SECONDS (21-34) 10/07/18 00:56 - Constitutional Appears: Well, Non-toxic, No Acute Distress - Head Exam Head Exam: ATRAUMATIC, NORMAL INSPECTION, NORMOCEPHALIC - Eye Exam Eye Exam: EOMI, Normal appearance. absent: Scleral icterus - ENT Exam ENT Exam: Mucous Membranes Moist - Cardiovascular Exam Cardiovascular Exam: RRR. absent: JVD - GI/Abdominal Exam GI & Abdominal Exam: Soft, Hernia (umbilical hernia, soft, reducible). absent: Distended, Guarding, Tenderness, Rebound - Neurological Exam Neurological Exam: Alert, Awake, Oriented x3 - Psychiatric Exam Psychiatric exam: Normal Affect, Normal Mood - Skin Skin Exam: Dry, Intact, Normal Color, Warm Assessment and Plan - Assessment and Plan (Free Text) Assessment: 78yo M with reducible umbilical hernia. No signs of obstructions. Plan: - Patient is not an ideal surgical candidate. - No general surgery intervention warranted at this time Further recs as per Dr. Reji Harley PGY2 surgery
[2018-10-08] MEDS ORDERED: Morphine 15 mg SR Tab PO PRN (11:29)
--- NOTE | 2018-10-08 12:55 | CP.CCUPN ---
CCU Subjective - Physician Review Subjective (Free Text): PGY-1 ICU progress note for Dr Blossom Smith Patient seen and examined at bedside today. Patient states he has no pain. Patient denies abdominal pain, chest pain, shortness of breath, or headache. Patient denies passing flatus today; patient's last BM was yesterday (10/07) Critical Care Time Spent (in minutes): 35 CCU Objective - Vital Signs / Intake & Output Vital Signs (Last 4 hours): Vital Signs Pulse Resp BP Pulse Ox 10/08/18 11:09 97/78 L 10/08/18 11:00 70 20 95 10/08/18 10:09 68 17 102/56 L 100 10/08/18 09:51 104/58 L 10/08/18 09:08 68 11 L 104/58 L 95 Intake and Output (Last 8hrs): Intake & Output 10/07/18 10/08/18 10/08/18 22:59 06:59 14:59 Intake Total 740 200 100 Output Total 250 450 Balance 490 -250 100 Weight 148 lb 9 oz Intake: Intake, IV Amount 100 200 Left Forearm 100 200 Oral 640 100 Output: Urine 250 450 Urine, Voided 250 450 Other: # Voids Urine, Voided 1 # Bowel Movements 1 0 - Physical Exam Head: Positive for: Atraumatic, Normocephalic Pupils: Positive for: PERRL Extroacular Muscles: Positive for: EOMI Conjunctiva: Positive for: Normal Mouth: Positive for: Moist Mucous Membranes Neck: Positive for: Normal Range of Motion Respiratory/Chest: Positive for: Clear to Auscultation, Good Air Exchange Cardiovascular: Positive for: Regular Rate and Rhythm, Normal S1, S2 Abdomen: Positive for: Normal Bowel Sounds. Negative for: Tenderness, Distention Upper Extremity: Positive for: Normal Inspection. Negative for: Edema Lower Extremity: Positive for: Normal Inspection. Negative for: Edema Neurological: Positive for: GCS=15, CN II-XII Intact, Speech Normal Skin: Positive for: Warm, Dry, Rashes, Normal Color Psychiatric: Positive for: Alert, Oriented x 3 - Medications Active Medications: Active Medications Generic Name Dose Route Start Last Admin Trade Name Freq PRN Reason Stop Dose Admin Amiodarone HCl 200 mg 10/07/18 10:00 10/08/18 09:53 Cordarone PO 200 mg DAILY [facility] Administration Furosemide 20 mg 10/07/18 10:00 10/08/18 09:51 Lasix PO Not Given DAILY [facility] Home Med 250 mg 10/07/18 10:00 Abiraterone Acetate [Zytiga] PO DAILY [facility] Home Med 50 mg 10/07/18 10:00 Bicalutamide [Casodex] PO DAILY [facility] Piperacillin Sod/Tazobactam 100 mls @ 200 mls/hr 10/07/18 06:00 10/08/18 12:23 Sod 3.375 gm/ Sodium Chloride IVPB 200 mls/hr Q6H [facility] Administration Protocol Levothyroxine Sodium 50 mcg 10/07/18 06:30 10/08/18 05:31 Synthroid PO Not Given DAILY@0630 [facility] Morphine Sulfate 15 mg 10/08/18 11:29 Morphine Extended Release Tab PO Q12 PRN Pain, moderate (4-7) Ondansetron HCl 4 mg 10/06/18 21:19 10/06/18 21:27 Zofran Inj IVP 4 mg Q6 PRN Administration Nausea/Vomiting Oxycodone/Acetaminophen 1 tab 10/06/18 20:07 10/06/18 21:10 Percocet 5/325 Mg Tab PO 10/09/18 20:08 1 tab Q6 PRN Administration Pain, moderate (4-7) Pantoprazole Sodium 40 mg 10/07/18 10:15 10/08/18 09:51 Protonix Inj IVP 40 mg Q12 [facility] Administration Prednisone 5 mg 10/07/18 10:00 10/08/18 09:51 Prednisone Tab PO 5 mg BID [facility] Administration Rosuvastatin Calcium 5 mg 10/07/18 22:00 10/07/18 22:09 Crestor PO 5 mg HS [facility] Administration Tamsulosin HCl 0.4 mg 10/07/18 10:00 10/08/18 09:51 Flomax PO 0.4 mg DAILY [facility] Administration - Patient Studies Lab Studies: Microbiology Studies 10/07/18 05:42 MRSA Culture (Admit) - Final Naris MRSA NOT DETECTED Lab Studies 10/08/18 10/08/18 10/07/18 Range/Units 06:07 06:05 11:48 WBC 10.9 H (4.8-10.8) K/uL RBC 2.58 L (4.40-5.90) Mil/uL Hgb 8.0 L (12.0-18.0) g/dL Hct 24.5 L (35.0-51.0) % MCV 94.7 H (80.0-94.0) fL MCH 30.9 (27.0-31.0) pg MCHC 32.6 L (33.0-37.0) g/dL RDW 22.4 H (11.5-14.5) % Plt Count 125 L (130-400) K/uL MPV 9.2 (7.2-11.7) fL Neut % (Auto) 93.6 H (50.0-75.0) % Lymph % (Auto) 2.2 L (20.0-40.0) % [place] % (Auto) 4.1 (0.0-10.0) % Eos % (Auto) 0.0 (0.0-4.0) % Baso % (Auto) 0.1 (0.0-2.0) % Neut # (Auto) 10.2 H (1.8-7.0) K/uL Lymph # (Auto) 0.2 L (1.0-4.3) K/uL [place] # (Auto) 0.4 (0.0-0.8) K/uL Eos # (Auto) 0.0 (0.0-0.7) K/uL Baso # (Auto) 0.0 (0.0-0.2) K/uL Neutrophils % (Manual) 59 (50-75) % Band Neutrophils % 37 H* (0-2) % Lymphocytes % (Manual) 2 L (20-40) % Monocytes % (Manual) 2 (0-10) % Platelet Estimate Slightly decreased L (NORMAL) Hypochromasia (manual) Moderate Poikilocytosis (manual Slight Anisocytosis (manual) Slight Microcytosis (manual) Slight Target Cells Slight Keira Cells Slight Sodium 142 (132-148) mmol/L Potassium 4.2 (3.6-5.2) mmol/L Chloride 112 H (98-107) mmol/L Carbon Dioxide 20 L (22-30) mmol/L Anion Gap 15 (10-20) BUN 37 H (9-20) mg/dL Creatinine 1.7 H (0.8-1.5) mg/dL Est GFR ( Amer) 48 Est GFR (Non-Af Amer) 39 Random Glucose 93 (75-110) mg/dL Calcium 6.8 L (8.6-10.4) mg/dl Phosphorus 3.2 (2.5-4.5) mg/dL Magnesium 1.9 (1.6-2.3) mg/dL Total Bilirubin 0.9 (0.2-1.3) mg/dL AST 36 (17-59) U/L ALT 17 L (21-72) U/L Alkaline Phosphatase 370 H D (38-126) U/L Total Protein 5.1 L (6.3-8.3) g/dL Albumin 2.8 L D (3.5-5.0) g/dL Globulin 2.3 (2.2-3.9) gm/dL Albumin/Globulin Ratio 1.2 (1.0-2.1) Stool Leukocytes, Qual Negative (NEGATIVE) Laboratory Results - last 24 hr 10/07/18 10/08/18 10/08/18 11:48 06:05 06:07 WBC 10.9 H RBC 2.58 L Hgb 8.0 L Hct 24.5 L MCV 94.7 H MCH 30.9 MCHC 32.6 L RDW 22.4 H Plt Count 125 L MPV 9.2 Neut % (Auto) 93.6 H Lymph % (Auto) 2.2 L [place] % (Auto) 4.1 Eos % (Auto) 0.0 Baso % (Auto) 0.1 Neut # (Auto) 10.2 H Lymph # (Auto) 0.2 L [place] # (Auto) 0.4 Eos # (Auto) 0.0 Baso # (Auto) 0.0 Neutrophils % (Manual) 59 Band Neutrophils % 37 H* Lymphocytes % (Manual) 2 L Monocytes % (Manual) 2 Platelet Estimate Slightly decreased L Hypochromasia (manual) Moderate Poikilocytosis (manual Slight Anisocytosis (manual) Slight Microcytosis (manual) Slight Target Cells Slight [place] Cells Slight Sodium 142 Potassium 4.2 Chloride 112 H Carbon Dioxide 20 L Anion Gap 15 BUN 37 H Creatinine 1.7 H Est GFR ( Amer) 48 Est GFR (Non-Af Amer) 39 Random Glucose 93 Calcium 6.8 L Phosphorus 3.2 Magnesium 1.9 Total Bilirubin 0.9 AST 36 ALT 17 L Alkaline Phosphatase 370 H D Total Protein 5.1 L Albumin 2.8 L D Globulin 2.3 Albumin/Globulin Ratio 1.2 Stool Leukocytes, Qual Negative Radiology Impressions: Radiology Impressions Abdomen Obstructive Series X-ray 10/07/18 08:14 Impression: Findings concerning for small bowel obstruction. Findings suggestive for diffuse skeletal metastases. Critical Care Progress Note - Nutrition Nutrition: Nutrition Category Date Time Status Heart Healthy Diet [DIET] Diets 10/08/18 Lunch Active Assessment/Plan - Assessment and Plan (Free Text) Plan: Patient is a 78 year old male with PMHx of HTN, CHF, Prostate CA with bone metastasis, Aflutter, Gastritis, Arthritis, CAD, and hypothyroidism, presented to the ED on 10/06 for abdominal pain. Patient was found to have an incarcerated umbilical hernia and ascities. Neuro - AAOx3, following commands - no acute issues Cardiac - Hx of CHF, CAD: Continue Amiodarone 200mg, Lasix 20mg, Crestor 5mg BID - Echo 01/24: EF 15%, moderate pulmonary hypertension - Repeat Echo to evaluate pulmonary hypertension and r/o pericardial effusion - f/u results - f/u Dr. Maxim gutierrez Pulm - No respiratory complaints, continue to monitor GI - Stool occult positive - stool electrolytes sent, f/u results - Ascities, Paracentesis cancelled due to lack of fluid - Umbilical Hernia reducible, pressure dressing in place - 10/07 Obstructive Series: findings concerning small bowel obstruction - Zofran PRN for nausea - Protonix for GI ppx - HHD - monitor patient tolerance to diet - f/u Dr. Fuentes gutierrez - f/u surgery recs Renal - Cr 1.7 today, continue to monitor - Flomax for hx of BPH - monitor I&O Endo - Hx of Hypothyroidism, Continue Levothyroxine 50 mcg Hem - Hb 8.0 today, down from 8.2 - 1 unit PRBC transfused 10/07 - monitor CBC ID - Leukocytosis: WBC 10.9 today, up from 9.9 - Band count 37 today, down from 65 - Afebrile, Tmax 99F - Continue Zosyn PPx - Protonix for GI ppx - SCDs for DVT ppx - Morphine 15mg PO, Percocet 5mg PRN for pain Discussed with Dr. Luis Rod, PGY-1 - Date & Time Date: 10/08/18 Time: 09:35
[2018-10-08] MEDS ORDERED: Morphine 15 mg Immediate Release Tab PO PRN (15:43)
--- NOTE | 2018-10-08 18:37 | CARD ---
APPROVED REPORT Date of service: 10/08/2018 EXAM: Two-dimensional and M-mode echocardiogram with Doppler and color Doppler. Other Information Quality : GoodRhythm : INDICATION Dyspnea Atrial Fibrillation Cardiac Disease: CAD Congestive Heart Failure RISK FACTORS Hypertension Smoking 2D DIMENSIONS IVSd1.1 (0.7-1.1cm)LVDd6.3 (3.9-5.9cm) PWd1.0 (0.7-1.1cm)LA [id number] (18-58mL) LVDs5.7 (2.5-4.0cm)FS (%) 9.4 % LVEF (%)20.2 (>50%)LVEF (Villanueva's)25.43 % IVC0.00 cm M-Mode DIMENSIONS RVDd4.09 (2.1-3.2cm)Left Atrium (MM)4.25 (2.5-4.0cm) IVSd1.00 (0.7-1.1cm)Aortic Root3.33 (2.2-3.7cm) LVDd6.23 (4.0-5.6cm)Aortic Cusp Exc.2.07 (1.5-2.0cm) PWd0.92 (0.7-1.1cm)FS (%) 7 % LVDs5.83 (2.0-3.8cm)TAPSE14.32 cm LVEF (%)14 (>50%) Aortic Valve AI P 1/2 [id number] Mitral Valve MV E Wlgnhvel01.0cm/sMV A Odozwtrf33.0cm/sE/A ratio1.7 KETQ999.07 cm/s TDI Lateral E' Peak V6.09cm/sMedial E' Peak V3.83cm/sE/Lateral E'16.3 E/Medial E'25.8 Tricuspid Valve TR Peak [id number]/sTR Peak Gr.[id number] LEFT VENTRICLE The Left Ventricle is moderately dilated. There is normal left ventricular wall thickness. The systolic function is severely impaired. RIGHT VENTRICLE The right ventricle is normal size. ATRIA The left atrium is mildly dilated. The right atrium is mildly dilated. AORTIC VALVE There is mild to moderate aortic regurgitation. MITRAL VALVE Mitral regurgitation is mild to moderate. TRICUSPID VALVE There is severe tricuspid regurgitation. PERICARDIAL EFFUSION There is a small circumferential pericardial effusion. <Conclusion> Severe LV systolic dysfunction. Dilated LA and LV. Mild to moderate AR. Mild to moderate MR. Severe TR. Small pericardial effusison.
--- NOTE | 2018-10-08 20:41 | CP.PCM.PN ---
Subjective - Date & Time of Evaluation Date of Evaluation: 10/08/18 Time of Evaluation: 09:20 - Subjective Subjective: dictated Objective - Vital Signs/Intake and Output Vital Signs (last 24 hours): Temp Pulse Resp BP Pulse Ox 97.6 F 75 19 98/56 L 100 10/08/18 16:00 10/08/18 19:09 10/08/18 19:09 10/08/18 19:09 10/08/18 19:09 Intake and Output: 10/08/18 10/09/18 18:59 06:59 Intake Total 600 0 Output Total 375 Balance 225 0 - Medications Medications: Current Medications Amiodarone HCl (Cordarone) 200 mg PO DAILY [facility] Last Admin: 10/08/18 09:53 Dose: 200 mg Furosemide (Lasix) 20 mg PO DAILY [facility] Last Admin: 10/08/18 09:51 Dose: Not Given Home Med (Abiraterone Acetate [Zytiga]) 250 mg PO DAILY [facility] Home Med (Bicalutamide [Casodex]) 50 mg PO DAILY [facility] Piperacillin Sod/Tazobactam (Sod 3.375 gm/ Sodium Chloride) 100 mls @ 200 mls/hr IVPB Q6H [facility]; Protocol Last Admin: 10/08/18 17:35 Dose: 200 mls/hr Levothyroxine Sodium (Synthroid) 50 mcg PO DAILY@0630 [facility] Last Admin: 10/08/18 05:31 Dose: Not Given Morphine Sulfate (Morphine Immediate Release Tab) 15 mg PO Q6H PRN PRN Reason: Pain, severe (8-10) Ondansetron HCl (Zofran Inj) 4 mg IVP Q6 PRN PRN Reason: Nausea/Vomiting Last Admin: 10/06/18 21:27 Dose: 4 mg Oxycodone/Acetaminophen (Percocet 5/325 Mg Tab) 1 tab PO Q6 PRN PRN Reason: Pain, moderate (4-7) Stop: 10/09/18 20:08 Last Admin: 10/06/18 21:10 Dose: 1 tab Pantoprazole Sodium (Protonix Inj) 40 mg IVP Q12 [facility] Last Admin: 10/08/18 09:51 Dose: 40 mg Prednisone (Prednisone Tab) 5 mg PO BID [facility] Last Admin: 10/08/18 17:35 Dose: 5 mg Rosuvastatin Calcium (Crestor) 5 mg PO HS [facility] Last Admin: 10/07/18 22:09 Dose: 5 mg Tamsulosin HCl (Flomax) 0.4 mg PO DAILY [facility] Last Admin: 10/08/18 09:51 Dose: 0.4 mg - Labs Labs: 10/08/18 06:07 10/08/18 06:05 PT 14.5 SECONDS (9.7-12.2) H 10/07/18 00:56 INR 1.3 10/07/18 00:56 APTT 27 SECONDS (21-34) 10/07/18 00:56
--- NOTE | 2018-10-08 23:56 | PN ---
DATE: 10/08/2018 LOCATION: The patient is in ICU 18. SUBJECTIVE: This is a 78-year-old male, seen and examined early in rounds in the intensive care unit without significant reported clinical changes. No reported chest pain or palpitation. No significant shortness of breath but an episode of bloody bowel movement late yesterday with subsequent drop of blood pressure and drop of hemoglobin and hematocrit. No hematemesis. The entire chart is reviewed including today's lab results with white blood cells of 10.9, hemoglobin 8, hematocrit 25.5 with thrombocytopenia of 125 with CO2 content of 20, BUN 37, creatinine 1.7, calcium 6.8 with alkaline phosphatase 370, albumin 2.8 with positive stool for occult blood. Abdominal obstructive x-ray serious done yesterday, initial report is seen, indicative of possible small bowel obstruction with possible diffuse skeletal metastasis. PHYSICAL EXAMINATION: GENERAL: A 78-year-old male, appears to be somewhat awake and alert. VITAL SIGNS: Afebrile with pulse of 74, respiratory 20 to 22, blood pressure 96/54. HEENT: Showed pale, dry oral mucous membranes. Nonicteric sclerae. LUNGS: Few scattered crepitation. Decreased air entry at bases. HEART: Positive S1 and S2. ABDOMEN: Soft with mild generalized tenderness. No mass or organomegaly. No rebound tenderness or guarding. EXTREMITIES: Without significant edema, clubbing or cyanosis. NEUROLOGIC: No reported new neurological deficits, sensory or motor. IMPRESSION: 1. Possible small bowel obstruction versus ischemic colitis with bloody bowel movement. 2. Known history of hypothyroidism. 3. Re-exacerbation of peptic ulcer disease. 4. Chronic congestive heart failure. 5. Known history of prostatic cancer with possible metastatic lesion to the bone. 6. Hypertension. 7. Coronary artery disease. 8. Gallbladder disorder. 9. Liver cirrhosis with ascites, status post paracentesis before. SUGGESTIONS: 1. Continue current management. 2. Correct any underlying electrolyte imbalance and/or coagulopathy. 3. Close observation. In the meantime, the patient however may need endoscopic evaluation of the GI tract when he is more stable clinically. 4. Further recommendation to follow. Halle Tran MD [facility] # [id number]
--- NOTE | 2018-10-09 01:24 | PN ---
DATE: 10/08/2018 SUBJECTIVE: The patient is not bleeding. He is hemodynamically stable. He is downgraded to telemetry floor. The patient is afebrile. Status post paracentesis. No shortness of breath. No chest pain. No nausea or vomiting. No arrhythmia. He has AICD in place. PHYSICAL EXAMINATION: VITAL SIGNS: Blood pressure 98/56, pulse 75, respiratory rate 19, temperature 98. LUNGS: Clear. No rales. No rhonchi. CARDIOVASCULAR SYSTEM: S1 and S2 regular. No heave. No thrill. ABDOMEN: Soft. The patient has ascites which is less than before. ASSESSMENT: 1. Cirrhosis of liver with ascites, status post paracentesis. 2. Gastrointestinal bleed, most likely it is a diverticular bleed. The patient is not actively bleeding. His hemoglobin and hematocrit are steady, stable. We will repeat hemoglobin and hematocrit and if needed blood transfusion. The patient is being seen by Gastroenterology. 3. Hypertension. 4. Congestive heart failure. PLAN: Medical management. Monitor the patient. Gregory Thrasher MD
[2018-10-09] MEDS: Piperacillin/Tazobact 3.375 GM in Sodium Chloride 100 ML IVPB SCH ×3 (05:43→19:30)
[2018-10-09] MEDS: Levothyroxine 50 MCG TAB PO SCH (05:45)
[2018-10-09 06:06] LABS: BASO % 0.2 % (0.0-2.0); HEMOGLOBIN 7.7 g/dL (12.0-18.0); LYMPH # 0.2 K/uL (1.0-4.3); LYMPH % 1.8 % (20.0-40.0); MEAN CELL VOLUME 95.1 fL (80.0-94.0); MEAN CORPUSCULAR HEMOGLOBIN 30.5 pg (27.0-31.0); MEAN CORPUSCULAR HGB CONC 32.1 g/dL (33.0-37.0); MEAN PLATELET VOLUME 9.2 fL (7.2-11.7); MONO # 0.4 K/uL (0.0-0.8); MONO % 3.5 % (0.0-10.0); NEUT # 11.4 K/uL (1.8-7.0); NEUT % 94.5 % (50.0-75.0); PLATELET COUNT 111 K/uL (130-400); RBC 2.51 Mil/uL (4.40-5.90); RED CELL DISTRIBUTION WIDTH 22.2 % (11.5-14.5)
[2018-10-09 06:17] LABS: ALB/GLOB RATIO 1.3 (1.0-2.1); ALBUMIN 2.6 g/dL (3.5-5.0); CALCIUM 7.5 mg/dl (8.6-10.4)
--- NOTE | 2018-10-09 08:09 | PN ---
DATE: 10/09/2018 LOCATION: ICU 18. SUBJECTIVE: This is an 78-year-old male, seen and examined in rounds early in the morning without significant clinical changes. No chest pain or palpitation. No significant shortness of breath, but generalized weakness and malaise with mild increase of abdominal girth. On record, the patient reported to have dark brownish bowel movement with apparently trace fresh blood late yesterday but no hematemesis. LABORATORY DATA: The entire chart is reviewed including the most recent lab result with white blood cells of 12, hemoglobin 7.7, hematocrit 23.9 with thrombocytopenia of 111, CO2 content of 21 indicative of metabolic acidosis, BUN 28, creatinine 1.6, calcium 7.5, alkaline phosphatase 311, albumin 2.6. Stool for occult blood reported to be positive again. . The previously performed CT scan of the abdomen and pelvis seen and report is reevaluated. PHYSICAL EXAMINATION: GENERAL: A 78-year-old male, awake, alert, afebrile. VITAL SIGNS: Pulse of 60, respiratory rate 20-22, blood pressure of 96/58. HEENT: Showed pale dry oral mucoid membrane. Nonicteric sclerae. LUNGS: Few scattered crepitations. Decreased air entry at bases. HEART: Positive S1 and S2 and distant. ABDOMEN: Soft with [id number] distention, positive for ascites and abdominal wall hernia. No other mass or organomegaly. No rebound tenderness or guarding. EXTREMITIES: Without significant clubbing or cyanosis, but mild lower extremity edematous changes. NEUROLOGIC: No reported new neurological deficits, sensory or motor. IMPRESSION: 1. Hepatic cirrhosis, most likely secondary to alcoholism with evidence of portal hypertension and refractory ascites. 2. Abdominal wall hernia. 3. Recent history of gastrointestinal bleeding, most likely lower with subsequent drop of hemoglobin and hematocrit. The possibility of bleeding diverticulosis was raised. 4. Known history of peptic ulcer disease. 5. History of hypertension with congestive heart failure. 6. Malnutrition with hypoalbuminemia and hypoproteinemia. 7. Leukocytosis with metabolic acidosis. The possibility of spontaneous bacterial peritonitis was raised. 8. Known history of congestive heart failure, coronary artery disease with pericardial effusion by radiology study results recently. 9. Prostatic cancer by history. SUGGESTIONS: 1. Continue current management. 2. Full cardiology workup. 3. Abdominal paracentesis when the patient is more stable clinically and after correcting his underlying coagulopathy. 4. The patient will need colonoscopy only when he is more stable clinically, otherwise close observation to follow. Thank you for letting me participate in your patient's case management. Further recommendation to follow. Halle Tran MD
[2018-10-09 08:38] LABS: BANDS 2 % (0-2); LYMPHOCYTE 3 % (20-40); MONOCYTE 3 % (0-10); NEUTROPHIL 92 % (50-75); TOTAL CELLS COUNTED 100
[2018-10-09 08:39] LABS: ANISOCYTOSIS SLIGHT; BURR CELLS SLIGHT; PLATELET ESTIMATE SLIGHTLY DECREASED (NORMAL); POIKILOCYTOSIS SLIGHT; TEARDROP CELLS SLIGHT
[2018-10-09 08:40] LABS: HYPOCHROMIC MODERATE; TARGET CELLS SLIGHT
--- NOTE | 2018-10-09 09:01 | CP.PCM.PN ---
<Leobardo Brewer - Last Filed: 10/09/18 18:21> Subjective - Date & Time of Evaluation Date of Evaluation: 10/09/18 Time of Evaluation: 09:01 - Subjective Subjective: Dr. Pan Cardiology Service Patient seen and examined at bedside. Per nursing no acute events occurred overnight. Patient denies any chest pain, shortness of breath, fevers, chills, nausea, vomiting, headaches, syncopal episodes, or any other complaints. Objective - Vital Signs/Intake and Output Vital Signs (last 24 hours): Temp Pulse Resp BP Pulse Ox 97.7 F 67 17 94/56 L 100 10/09/18 08:00 10/09/18 08:08 10/09/18 08:08 10/09/18 08:08 10/09/18 08:08 Intake and Output: 10/09/18 10/09/18 06:59 18:59 Intake Total 790 Output Total 400 Balance 390 - Medications Medications: Current Medications Amiodarone HCl (Cordarone) 200 mg PO DAILY [facility] Last Admin: 10/08/18 09:53 Dose: 200 mg Furosemide (Lasix) 20 mg PO DAILY [facility] Last Admin: 10/08/18 09:51 Dose: Not Given Home Med (Abiraterone Acetate [Zytiga]) 250 mg PO DAILY [facility] Home Med (Bicalutamide [Casodex]) 50 mg PO DAILY [facility] Piperacillin Sod/Tazobactam (Sod 3.375 gm/ Sodium Chloride) 100 mls @ 200 mls/hr IVPB Q6H [facility]; Protocol Last Admin: 10/09/18 05:43 Dose: 200 mls/hr Levothyroxine Sodium (Synthroid) 50 mcg PO DAILY@0630 [facility] Last Admin: 10/09/18 05:45 Dose: 50 mcg Morphine Sulfate (Morphine Immediate Release Tab) 15 mg PO Q6H PRN PRN Reason: Pain, severe (8-10) Ondansetron HCl (Zofran Inj) 4 mg IVP Q6 PRN PRN Reason: Nausea/Vomiting Last Admin: 10/06/18 21:27 Dose: 4 mg Oxycodone/Acetaminophen (Percocet 5/325 Mg Tab) 1 tab PO Q6 PRN PRN Reason: Pain, moderate (4-7) Stop: 10/09/18 20:08 Last Admin: 10/06/18 21:10 Dose: 1 tab Pantoprazole Sodium (Protonix Inj) 40 mg IVP Q12 [facility] Last Admin: 10/08/18 21:38 Dose: 40 mg Prednisone (Prednisone Tab) 5 mg PO BID [facility] Last Admin: 10/08/18 17:35 Dose: 5 mg Rosuvastatin Calcium (Crestor) 5 mg PO HS [facility] Last Admin: 10/08/18 21:38 Dose: 5 mg Tamsulosin HCl (Flomax) 0.4 mg PO DAILY [facility] Last Admin: 10/08/18 09:51 Dose: 0.4 mg - Labs Labs: 10/09/18 05:53 10/09/18 05:51 PT 14.5 SECONDS (9.7-12.2) H 10/07/18 00:56 INR 1.3 10/07/18 00:56 APTT 27 SECONDS (21-34) 10/07/18 00:56 - Head Exam Head Exam: ATRAUMATIC, NORMAL INSPECTION - Eye Exam Eye Exam: EOMI, Normal appearance. absent: Scleral icterus Pupil Exam: NORMAL ACCOMODATION, PERRL - ENT Exam ENT Exam: Mucous Membranes Moist, Normal Exam - Neck Exam Neck Exam: Normal Inspection - Respiratory Exam Respiratory Exam: NORMAL BREATHING PATTERN - Cardiovascular Exam Cardiovascular Exam: +S1, +S2 - GI/Abdominal Exam GI & Abdominal Exam: Soft, Normal Bowel Sounds. absent: Hernia, Organomegaly - Neurological Exam Neurological Exam: Alert, Awake, CN II-XII Intact, Oriented x3 - Psychiatric Exam Psychiatric exam: Normal Mood - Skin Skin Exam: Dry, Intact, Warm Assessment and Plan - Assessment and Plan (Free Text) Assessment: 78 year old male with a past medical history of prostate cancer, cad, atrial flutter s/p ablation, gastritis, and hypertension admitted for small bowel obstruction. Plan: Chronic CHF Last echo (01/2018) :EF 15% Severe tricsupid regurgitations Echo taken. :EF 20% Dialted LA and LV Severe Tricuspid Regurgitation Small pericardial effusion. Cardiac Cath -Optimize medical managment Medications: Lasix 20mg PO Daily Amiodarone 200mg PO Daily Crestor [address] [facility] Hypothyroidism Medications: Synthroid 50mcg PO DAILY BPH Medications: Flomax .4mg PO Daily SBO -Surgery consulted. Help appreciated. -Passing stool and gas. Medications: Percocet 1 tab PO Q6 PRN Plan discussed with Attending Dr. Pan. Leobardo Brewer, PGY-2 <Romulo Pan - Last Filed: 10/09/18 22:45> Objective - Vital Signs/Intake and Output Vital Signs (last 24 hours): Temp Pulse Resp BP Pulse Ox 98.1 F 74 22 95/59 L 96 10/09/18 19:07 10/09/18 19:08 10/09/18 19:08 10/09/18 19:08 10/09/18 19:08 Intake and Output: 10/09/18 10/10/18 18:59 06:59 Intake Total 1925 120 Output Total 500 Balance 1425 120 - Medications Medications: Current Medications Amiodarone HCl (Cordarone) 200 mg PO DAILY [facility] Last Admin: 10/09/18 11:52 Dose: 200 mg Emollient Ointment (Vaseline Oint) 2 gm TOP BID PRN PRN Reason: Dry skin Last Admin: 10/09/18 18:26 Dose: 2 gm Furosemide (Lasix) 20 mg PO DAILY [facility] Last Admin: 10/09/18 11:53 Dose: 20 mg Home Med (Abiraterone Acetate [Zytiga]) 250 mg PO DAILY [facility] Home Med (Bicalutamide [Casodex]) 50 mg PO DAILY [facility] Piperacillin Sod/Tazobactam (Sod 3.375 gm/ Sodium Chloride) 100 mls @ 200 mls/hr IVPB Q6H [facility]; Protocol Last Admin: 10/09/18 19:30 Dose: 200 mls/hr Levothyroxine Sodium (Synthroid) 50 mcg PO DAILY@0630 [facility] Last Admin: 10/09/18 05:45 Dose: 50 mcg Morphine Sulfate (Morphine Immediate Release Tab) 15 mg PO Q6H PRN PRN Reason: Pain, severe (8-10) Ondansetron HCl (Zofran Inj) 4 mg IVP Q6 PRN PRN Reason: Nausea/Vomiting Last Admin: 10/06/18 21:27 Dose: 4 mg Pantoprazole Sodium (Protonix Inj) 40 mg IVP Q12 [facility] Last Admin: 10/09/18 21:14 Dose: 40 mg Prednisone (Prednisone Tab) 5 mg PO BID [facility] Last Admin: 10/09/18 18:25 Dose: 5 mg Rosuvastatin Calcium (Crestor) [address] [facility] Last Admin: 10/09/18 21:14 Dose: 5 mg Tamsulosin HCl (Flomax) 0.4 mg PO DAILY [facility] Last Admin: 10/09/18 09:37 Dose: 0.4 mg - Labs Labs: 10/09/18 05:53 10/09/18 05:51 PT 13.2 SECONDS (9.7-12.2) H 10/09/18 10:49 INR 1.2 10/09/18 10:49 APTT 29 SECONDS (21-34) 10/09/18 10:49 Assessment and Plan - Assessment and Plan (Free Text) Assessment: Patient seen and evaluated personally by me. Plan of care d/w the caregivers non medical and as documented
[2018-10-09 11:09] LABS: INR 1.2; PROTHROMBIN TIME 13.2 SECONDS (9.7-12.2)
--- NOTE | 2018-10-09 13:30 | US ---
Date of service: 10/09/2018 HISTORY: ascites for paracentesis COMPARISON: None. TECHNIQUE: Limited ascites sonographic evaluation for paracentesis FINDINGS: LIVER: Portions of the liver are outlined by moderate to marked ascites. Nodularity to the liver contour-compatible with cirrhosis. GALLBLADDER: Not visualized on this exam COMMON BILE DUCT: Not visualized on this exam PANCREAS: Not visualized on this exam RIGHT KIDNEY: Not visualized AORTA: No aneurysmal dilatation. IVC: Unremarkable. OTHER FINDINGS: Pocket of right lower quadrant free fluid seen measuring 15 x 8 cm. Left lower quadrant ascitic pocket measuring 9 0.8 x 6.6 cm here bowel loop floating in fluid-appears small-bowel per valvuli conniventes Spleen appears unremarkable IMPRESSION: Limited exam-for ascites sonographic evaluation for paracentesis.
--- NOTE | 2018-10-09 13:58 | CP.CCUPN ---
<Nico Gardner S - Last Filed: 10/09/18 18:31> CCU Subjective - Physician Review Critical Care Time Spent (in minutes): 35 CCU Objective - Vital Signs / Intake & Output Vital Signs (Last 4 hours): Vital Signs Temp Pulse Resp BP Pulse Ox 10/09/18 18:07 97.9 F 77 21 102/66 10/09/18 17:37 98.3 F 74 17 94/58 L 10/09/18 17:25 65 21 96/58 L 100 10/09/18 17:10 77 18 99/57 L 100 10/09/18 17:07 98.3 F 74 21 99/57 L 10/09/18 17:00 76 22 100 10/09/18 16:57 99.0 F 76 15 98/62 L 10/09/18 16:55 74 17 98/62 L 10/09/18 16:40 75 14 98/62 L 99 10/09/18 16:37 98.6 F 82 19 98/62 L 10/09/18 16:25 77 21 104/68 100 10/09/18 16:22 97.5 F L 83 19 101/59 L 10/09/18 16:19 97.5 F L 83 19 101/59 L 10/09/18 16:10 77 22 101/59 L 100 10/09/18 16:06 77 23 105/65 100 10/09/18 16:04 98.2 F 76 23 106/69 10/09/18 16:00 98.2 F 76 22 100 10/09/18 15:45 98.2 F 75 21 106/69 94 L 10/09/18 15:36 77 21 100/64 83 L 10/09/18 15:19 97.9 F 82 21 99/58 L 10/09/18 15:06 68 21 99/58 L 100 10/09/18 15:00 77 23 100 10/09/18 14:36 81 27 H 109/69 100 Intake and Output (Last 8hrs): Intake & Output 10/09/18 10/09/18 10/09/18 06:59 14:59 22:59 Intake Total 790 430 475 Output Total 400 300 Balance 390 130 475 Weight 156 lb 4.8 oz Intake: Intake, IV Amount 200 100 Left Forearm 200 100 Oral 590 250 Blood Product 80 450 Red Blood Cells Cpd As1 80 245 Lr Unit [id number] Red Blood Cells Cpd As1 205 Lr Unit [id number] Other 25 Red Blood Cells Cpd As1 25 Lr Unit [id number] Output: Urine 400 300 Urine, Voided 400 300 Other: # Bowel Movements 0 1 - Medications Active Medications: Active Medications Generic Name Dose Route Start Last Admin Trade Name Freq PRN Reason Stop Dose Admin Amiodarone HCl 200 mg 10/07/18 10:00 10/09/18 11:52 Cordarone PO 200 mg DAILY [facility] Administration Emollient Ointment 2 gm 10/09/18 14:31 10/09/18 18:26 Vaseline Oint TOP 2 gm BID PRN Administration Dry skin Furosemide 20 mg 10/07/18 10:00 10/09/18 11:53 Lasix PO 20 mg DAILY [facility] Administration Home Med 250 mg 10/07/18 10:00 Abiraterone Acetate [Zytiga] PO DAILY [facility] Home Med 50 mg 10/07/18 10:00 Bicalutamide [Casodex] PO DAILY [facility] Piperacillin Sod/Tazobactam 100 mls @ 200 mls/hr 10/07/18 06:00 10/09/18 11:51 Sod 3.375 gm/ Sodium Chloride IVPB 200 mls/hr Q6H [facility] Administration Protocol Levothyroxine Sodium 50 mcg 10/07/18 06:30 10/09/18 05:45 Synthroid PO 50 mcg DAILY@0630 [facility] Administration Morphine Sulfate 15 mg 10/08/18 15:43 Morphine Immediate Release Tab PO Q6H PRN Pain, severe (8-10) Ondansetron HCl 4 mg 10/06/18 21:19 10/06/18 21:27 Zofran Inj IVP 4 mg Q6 PRN Administration Nausea/Vomiting Oxycodone/Acetaminophen 1 tab 10/06/18 20:07 10/06/18 21:10 Percocet 5/325 Mg Tab PO 10/09/18 20:08 1 tab Q6 PRN Administration Pain, moderate (4-7) Pantoprazole Sodium 40 mg 10/07/18 10:15 10/09/18 09:37 Protonix Inj IVP 40 mg Q12 [facility] Administration Prednisone 5 mg 10/07/18 10:00 10/09/18 18:25 Prednisone Tab PO 5 mg BID [facility] Administration Rosuvastatin Calcium 5 mg 10/07/18 22:00 10/08/18 21:38 Crestor PO 5 mg HS [facility] Administration Tamsulosin HCl 0.4 mg 10/07/18 10:00 10/09/18 09:37 Flomax PO 0.4 mg DAILY [facility] Administration - Patient Studies Lab Studies: Microbiology Studies 10/07/18 11:48 Stool Culture - Final Stool NO SALMONELLA, SHIGELLA OR CAMPYLOBACTER ISOLATED. Lab Studies 10/09/18 10/09/18 10/09/18 Range/Units 16:24 16:00 10:49 WBC (4.8-10.8) K/uL RBC (4.40-5.90) Mil/uL Hgb (12.0-18.0) g/dL Hct (35.0-51.0) % MCV (80.0-94.0) fL MCH (27.0-31.0) pg MCHC (33.0-37.0) g/dL RDW (11.5-14.5) % Plt Count (130-400) K/uL MPV (7.2-11.7) fL Neut % (Auto) (50.0-75.0) % Lymph % (Auto) (20.0-40.0) % [place] % (Auto) (0.0-10.0) % Eos % (Auto) (0.0-4.0) % Baso % (Auto) (0.0-2.0) % Neut # (Auto) (1.8-7.0) K/uL Lymph # (Auto) (1.0-4.3) K/uL [place] # (Auto) (0.0-0.8) K/uL Eos # (Auto) (0.0-0.7) K/uL Baso # (Auto) (0.0-0.2) K/uL Neutrophils % (Manual) (50-75) % Band Neutrophils % (0-2) % Lymphocytes % (Manual) (20-40) % Monocytes % (Manual) (0-10) % Platelet Estimate (NORMAL) Hypochromasia (manual) Poikilocytosis (manual Anisocytosis (manual) Target Cells Tear Drop Cells Keira Cells PT (9.7-12.2) SECONDS INR APTT (21-34) SECONDS Sodium (132-148) mmol/L Potassium (3.6-5.2) mmol/L Chloride (98-107) mmol/L Carbon Dioxide (22-30) mmol/L Anion Gap (10-20) BUN (9-20) mg/dL Creatinine (0.8-1.5) mg/dL Est GFR ( Amer) Est GFR (Non-Af Amer) POC Glucose (mg/dL) 133 H (65-110) mg/dL Random Glucose (75-110) mg/dL Calcium (8.6-10.4) mg/dl Phosphorus (2.5-4.5) mg/dL Magnesium (1.6-2.3) mg/dL Total Bilirubin (0.2-1.3) mg/dL AST (17-59) U/L ALT (21-72) U/L Alkaline Phosphatase (38-126) U/L Total Protein (6.3-8.3) g/dL Albumin (3.5-5.0) g/dL Globulin (2.2-3.9) gm/dL Albumin/Globulin Ratio (1.0-2.1) Alpha Fetoprotein (0.0-7.5) ng/mL Carcinoembryonic Ag 8.9 H (0-3.0) ng/mL CA 19-9 Antigen 16.7 (0-37) U/mL Fluid Source Peritoneal/ascites Fluid Appearance Clear (CLEAR) Fluid WBC 115.0 (0.0-300.0) /mm3 Fluid RBC 17.0 H (0.0-0.0) /mm3 Fluid Tot Cell Count 100 H (0-0) Fluid Neutrophils 80.0 H (0-0) % Fluid Lymphocytes 7.0 H (0-0) % Fld Monocyte/Macrophag 13 H (0-0) % Fluid Comment Blood Type Antibody Screen 10/09/18 10/09/18 10/09/18 Range/Units 10:49 10:49 05:53 WBC 12.0 H (4.8-10.8) K/uL RBC 2.51 L (4.40-5.90) Mil/uL Hgb 7.7 L (12.0-18.0) g/dL Hct 23.9 L (35.0-51.0) % MCV 95.1 H (80.0-94.0) fL MCH 30.5 (27.0-31.0) pg MCHC 32.1 L (33.0-37.0) g/dL RDW 22.2 H (11.5-14.5) % Plt Count 111 L (130-400) K/uL MPV 9.2 (7.2-11.7) fL Neut % (Auto) 94.5 H (50.0-75.0) % Lymph % (Auto) 1.8 L (20.0-40.0) % [place] % (Auto) 3.5 (0.0-10.0) % Eos % (Auto) 0.0 (0.0-4.0) % Baso % (Auto) 0.2 (0.0-2.0) % Neut # (Auto) 11.4 H (1.8-7.0) K/uL Lymph # (Auto) 0.2 L (1.0-4.3) K/uL [place] # (Auto) 0.4 (0.0-0.8) K/uL Eos # (Auto) 0.0 (0.0-0.7) K/uL Baso # (Auto) 0.0 (0.0-0.2) K/uL Neutrophils % (Manual) 92 H (50-75) % Band Neutrophils % 2 (0-2) % Lymphocytes % (Manual) 3 L (20-40) % Monocytes % (Manual) 3 (0-10) % Platelet Estimate Slightly decreased L (NORMAL) Hypochromasia (manual) Moderate Poikilocytosis (manual Slight Anisocytosis (manual) Slight Target Cells Slight Tear Drop Cells Slight Zenia Cells Slight PT 13.2 H (9.7-12.2) SECONDS INR 1.2 APTT 29 (21-34) SECONDS Sodium (132-148) mmol/L Potassium (3.6-5.2) mmol/L Chloride (98-107) mmol/L Carbon Dioxide (22-30) mmol/L Anion Gap (10-20) BUN (9-20) mg/dL Creatinine (0.8-1.5) mg/dL Est GFR ( Amer) Est GFR (Non-Af Amer) POC Glucose (mg/dL) (65-110) mg/dL Random Glucose (75-110) mg/dL Calcium (8.6-10.4) mg/dl Phosphorus (2.5-4.5) mg/dL Magnesium (1.6-2.3) mg/dL Total Bilirubin (0.2-1.3) mg/dL AST (17-59) U/L ALT (21-72) U/L Alkaline Phosphatase (38-126) U/L Total Protein (6.3-8.3) g/dL Albumin (3.5-5.0) g/dL Globulin (2.2-3.9) gm/dL Albumin/Globulin Ratio (1.0-2.1) Alpha Fetoprotein 4.1 (0.0-7.5) ng/mL Carcinoembryonic Ag (0-3.0) ng/mL CA 19-9 Antigen (0-37) U/mL Fluid Source Fluid Appearance (CLEAR) Fluid WBC (0.0-300.0) /mm3 Fluid RBC (0.0-0.0) /mm3 Fluid Tot Cell Count (0-0) Fluid Neutrophils (0-0) % Fluid Lymphocytes (0-0) % Fld Monocyte/Macrophag (0-0) % Fluid Comment Blood Type Antibody Screen 10/09/18 10/06/18 Range/Units 05:51 19:45 WBC (4.8-10.8) K/uL RBC (4.40-5.90) Mil/uL Hgb (12.0-18.0) g/dL Hct (35.0-51.0) % MCV (80.0-94.0) fL MCH (27.0-31.0) pg MCHC (33.0-37.0) g/dL RDW (11.5-14.5) % Plt Count (130-400) K/uL MPV (7.2-11.7) fL Neut % (Auto) (50.0-75.0) % Lymph % (Auto) (20.0-40.0) % [place] % (Auto) (0.0-10.0) % Eos % (Auto) (0.0-4.0) % Baso % (Auto) (0.0-2.0) % Neut # (Auto) (1.8-7.0) K/uL Lymph # (Auto) (1.0-4.3) K/uL [place] # (Auto) (0.0-0.8) K/uL Eos # (Auto) (0.0-0.7) K/uL Baso # (Auto) (0.0-0.2) K/uL Neutrophils % (Manual) (50-75) % Band Neutrophils % (0-2) % Lymphocytes % (Manual) (20-40) % Monocytes % (Manual) (0-10) % Platelet Estimate (NORMAL) Hypochromasia (manual) Poikilocytosis (manual Anisocytosis (manual) Target Cells Tear Drop Cells Keira Cells PT (9.7-12.2) SECONDS INR APTT (21-34) SECONDS Sodium 142 (132-148) mmol/L Potassium 4.2 (3.6-5.2) mmol/L Chloride 113 H (98-107) mmol/L Carbon Dioxide 21 L (22-30) mmol/L Anion Gap 13 (10-20) BUN 28 H (9-20) mg/dL Creatinine 1.6 H (0.8-1.5) mg/dL Est GFR ( Amer) 51 Est GFR (Non-Af Amer) 42 POC Glucose (mg/dL) (65-110) mg/dL Random Glucose 100 (75-110) mg/dL Calcium 7.5 L (8.6-10.4) mg/dl Phosphorus 3.0 (2.5-4.5) mg/dL Magnesium 1.9 (1.6-2.3) mg/dL Total Bilirubin 0.7 (0.2-1.3) mg/dL AST 30 (17-59) U/L ALT 20 L (21-72) U/L Alkaline Phosphatase 311 H (38-126) U/L Total Protein 4.7 L (6.3-8.3) g/dL Albumin 2.6 L (3.5-5.0) g/dL Globulin 2.0 L (2.2-3.9) gm/dL Albumin/Globulin Ratio 1.3 (1.0-2.1) Alpha Fetoprotein (0.0-7.5) ng/mL Carcinoembryonic Ag (0-3.0) ng/mL CA 19-9 Antigen (0-37) U/mL Fluid Source Fluid Appearance (CLEAR) Fluid WBC (0.0-300.0) /mm3 Fluid RBC (0.0-0.0) /mm3 Fluid Tot Cell Count (0-0) Fluid Neutrophils (0-0) % Fluid Lymphocytes (0-0) % Fld Monocyte/Macrophag (0-0) % Fluid Comment Blood Type A POSITIVE Antibody Screen Negative Laboratory Results - last 24 hr 10/06/18 10/09/18 10/09/18 19:45 05:51 05:53 WBC 12.0 H RBC 2.51 L Hgb 7.7 L Hct 23.9 L MCV 95.1 H MCH 30.5 MCHC 32.1 L RDW 22.2 H Plt Count 111 L MPV 9.2 Neut % (Auto) 94.5 H Lymph % (Auto) 1.8 L [place] % (Auto) 3.5 Eos % (Auto) 0.0 Baso % (Auto) 0.2 Neut # (Auto) 11.4 H Lymph # (Auto) 0.2 L [place] # (Auto) 0.4 Eos # (Auto) 0.0 Baso # (Auto) 0.0 Neutrophils % (Manual) 92 H Band Neutrophils % 2 Lymphocytes % (Manual) 3 L Monocytes % (Manual) 3 Platelet Estimate Slightly decreased L Hypochromasia (manual) Moderate Poikilocytosis (manual Slight Anisocytosis (manual) Slight Target Cells Slight Tear Drop Cells Slight Keira Cells Slight PT INR APTT Sodium 142 Potassium 4.2 Chloride 113 H Carbon Dioxide 21 L Anion Gap 13 BUN 28 H Creatinine 1.6 H Est GFR ( Amer) 51 Est GFR (Non-Af Amer) 42 POC Glucose (mg/dL) Random Glucose 100 Calcium 7.5 L Phosphorus 3.0 Magnesium 1.9 Total Bilirubin 0.7 AST 30 ALT 20 L Alkaline Phosphatase 311 H Total Protein 4.7 L Albumin 2.6 L Globulin 2.0 L Albumin/Globulin Ratio 1.3 Alpha Fetoprotein Carcinoembryonic Ag CA 19-9 Antigen Fluid Source Fluid Appearance Fluid WBC Fluid RBC Fluid Tot Cell Count Fluid Neutrophils Fluid Lymphocytes Fld Monocyte/Macrophag Fluid Comment Blood Type A POSITIVE Antibody Screen Negative 10/09/18 10/09/18 10/09/18 10:49 10:49 10:49 WBC RBC Hgb Hct MCV MCH MCHC RDW Plt Count MPV Neut % (Auto) Lymph % (Auto) [place] % (Auto) Eos % (Auto) Baso % (Auto) Neut # (Auto) Lymph # (Auto) [place] # (Auto) Eos # (Auto) Baso # (Auto) Neutrophils % (Manual) Band Neutrophils % Lymphocytes % (Manual) Monocytes % (Manual) Platelet Estimate Hypochromasia (manual) Poikilocytosis (manual Anisocytosis (manual) Target Cells Tear Drop Cells Zenia Cells PT 13.2 H INR 1.2 APTT 29 Sodium Potassium Chloride Carbon Dioxide Anion Gap BUN Creatinine Est GFR ( Amer) Est GFR (Non-Af Amer) POC Glucose (mg/dL) Random Glucose Calcium Phosphorus Magnesium Total Bilirubin AST ALT Alkaline Phosphatase Total Protein Albumin Globulin Albumin/Globulin Ratio Alpha Fetoprotein 4.1 Carcinoembryonic Ag 8.9 H CA 19-9 Antigen 16.7 Fluid Source Fluid Appearance Fluid WBC Fluid RBC Fluid Tot Cell Count Fluid Neutrophils Fluid Lymphocytes Fld Monocyte/Macrophag Fluid Comment Blood Type Antibody Screen 10/09/18 10/09/18 16:00 16:24 WBC RBC Hgb Hct MCV MCH MCHC RDW Plt Count MPV Neut % (Auto) Lymph % (Auto) [place] % (Auto) Eos % (Auto) Baso % (Auto) Neut # (Auto) Lymph # (Auto) [place] # (Auto) Eos # (Auto) Baso # (Auto) Neutrophils % (Manual) Band Neutrophils % Lymphocytes % (Manual) Monocytes % (Manual) Platelet Estimate Hypochromasia (manual) Poikilocytosis (manual Anisocytosis (manual) Target Cells Tear Drop Cells Keira Cells PT INR APTT Sodium Potassium Chloride Carbon Dioxide Anion Gap BUN Creatinine Est GFR ( Amer) Est GFR (Non-Af Amer) POC Glucose (mg/dL) 133 H Random Glucose Calcium Phosphorus Magnesium Total Bilirubin AST ALT Alkaline Phosphatase Total Protein Albumin Globulin Albumin/Globulin Ratio Alpha Fetoprotein Carcinoembryonic Ag CA 19-9 Antigen Fluid Source Peritoneal/ascites Fluid Appearance Clear Fluid WBC 115.0 Fluid RBC 17.0 H Fluid Tot Cell Count 100 H Fluid Neutrophils 80.0 H Fluid Lymphocytes 7.0 H Fld Monocyte/Macrophag 13 H Fluid Comment Blood Type Antibody Screen Radiology Impressions: Radiology Impressions Abdomen Ultrasound 10/09/18 11:38 IMPRESSION: Limited exam-for ascites sonographic evaluation for paracentesis. Critical Care Progress Note - Nutrition Nutrition: Nutrition Category Date Time Status Heart Healthy Diet [DIET] Diets 10/08/18 Lunch Active Attending/Attestation - Attestation I have personally seen and examined this patient.: Yes I have fully participated in the care of the patient.: Yes I have reviewed all pertinent clinical information: Yes Notes (Text): 10/09/18 18:31 Patient seen and examined in the intensive care unit. Case discussed with housestaff in the morning rounds. Assessment and plan as per resident note Patient status post thoracentesis and 2 L of straw-colored fluid removed GI follow-up <Dilan Rod - Last Filed: 10/09/18 19:10> CCU Subjective - Physician Review Subjective (Free Text): PGY-1 ICU progress note for Dr Gardner service Patient seen and examined at bedside today. Patient states he has no pain today. Patient states he has a feeling of fullness in his abdomen and is belching, feels as if abdomen pressing him upwards. Patient had a BM today, not passing gas. Patient denies dizziness, abdominal pain, chest pain, shortness of breath, or headache. CCU Objective - Vital Signs / Intake & Output Vital Signs (Last 4 hours): Vital Signs Temp Pulse Resp BP Pulse Ox 10/09/18 13:35 97.8 F 76 22 109/65 10/09/18 13:31 102 H 24 102/60 90 L 10/09/18 13:20 97.6 F 80 18 102/60 10/09/18 13:16 74 20 102/60 10/09/18 13:15 97.6 F 80 18 102/60 10/09/18 13:09 86 24 97/58 L 10/09/18 13:00 74 84 L 10/09/18 12:55 97.8 F 71 18 97/58 L 10/09/18 12:37 81 22 102/64 10/09/18 12:08 79 25 H 100/68 96 10/09/18 12:00 97.7 F 78 25 H 97 10/09/18 11:53 98/60 L 10/09/18 11:49 80 16 98/60 L 82 L 10/09/18 11:08 77 23 89/40 L 92 L 10/09/18 11:00 78 22 10/09/18 10:10 76 22 100/58 L 10/09/18 10:00 86 25 H 96 Intake and Output (Last 8hrs): Intake & Output 10/08/18 10/09/18 10/09/18 22:59 06:59 14:59 Intake Total 200 790 250 Output Total 200 400 200 Balance 0 390 50 Intake: Intake, IV Amount 100 200 Left Forearm 100 200 Oral 100 590 250 Blood Product 0 Red Blood Cells Cpd As1 0 Lr Unit [id number] Output: Urine 200 400 200 Urine, Voided 200 400 200 Other: # Voids Urine, Voided 1 # Bowel Movements 0 0 - Physical Exam Head: Positive for: Atraumatic, Normocephalic Pupils: Positive for: PERRL Extroacular Muscles: Positive for: EOMI Conjunctiva: Positive for: Normal Mouth: Positive for: Moist Mucous Membranes Neck: Positive for: Normal Range of Motion Respiratory/Chest: Positive for: Clear to Auscultation, Good Air Exchange Cardiovascular: Positive for: Regular Rate and Rhythm, Normal S1, S2 Abdomen: Positive for: Distention, Normal Bowel Sounds. Negative for: Tenderness Upper Extremity: Positive for: Normal Inspection. Negative for: Edema Lower Extremity: Positive for: Normal Inspection. Negative for: Edema Neurological: Positive for: GCS=15, CN II-XII Intact, Speech Normal Skin: Positive for: Warm, Dry, Rashes, Normal Color Psychiatric: Positive for: Alert, Oriented x 3, Normal Insight, Normal Concentration - Medications Active Medications: Active Medications Generic Name Dose Route Start Last Admin Trade Name Freq PRN Reason Stop Dose Admin Amiodarone HCl 200 mg 10/07/18 10:00 10/09/18 11:52 Cordarone PO 200 mg DAILY [facility] Administration Furosemide 20 mg 10/07/18 10:00 10/09/18 11:53 Lasix PO 20 mg DAILY [facility] Administration Home Med 250 mg 10/07/18 10:00 Abiraterone Acetate [Zytiga] PO DAILY [facility] Home Med 50 mg 10/07/18 10:00 Bicalutamide [Casodex] PO DAILY [facility] Piperacillin Sod/Tazobactam 100 mls @ 200 mls/hr 10/07/18 06:00 10/09/18 11:51 Sod 3.375 gm/ Sodium Chloride IVPB 200 mls/hr Q6H [facility] Administration Protocol Levothyroxine Sodium 50 mcg 10/07/18 06:30 10/09/18 05:45 Synthroid PO 50 mcg DAILY@0630 [facility] Administration Morphine Sulfate 15 mg 10/08/18 15:43 Morphine Immediate Release Tab PO Q6H PRN Pain, severe (8-10) Ondansetron HCl 4 mg 10/06/18 21:19 10/06/18 21:27 Zofran Inj IVP 4 mg Q6 PRN Administration Nausea/Vomiting Oxycodone/Acetaminophen 1 tab 10/06/18 20:07 10/06/18 21:10 Percocet 5/325 Mg Tab PO 10/09/18 20:08 1 tab Q6 PRN Administration Pain, moderate (4-7) Pantoprazole Sodium 40 mg 10/07/18 10:15 10/09/18 09:37 Protonix Inj IVP 40 mg Q12 [facility] Administration Prednisone 5 mg 10/07/18 10:00 10/09/18 09:37 Prednisone Tab PO 5 mg BID [facility] Administration Rosuvastatin Calcium 5 mg 10/07/18 22:00 10/08/18 21:38 Crestor PO 5 mg HS [facility] Administration Tamsulosin HCl 0.4 mg 10/07/18 10:00 10/09/18 09:37 Flomax PO 0.4 mg DAILY [facility] Administration - Patient Studies Lab Studies: Microbiology Studies 10/07/18 11:48 Stool Culture - Final Stool NO SALMONELLA, SHIGELLA OR CAMPYLOBACTER ISOLATED. 10/07/18 05:42 MRSA Culture (Admit) - Final Naris MRSA NOT DETECTED Lab Studies 10/09/18 10/09/18 10/09/18 Range/Units 10:49 10:49 10:49 WBC (4.8-10.8) K/uL RBC (4.40-5.90) Mil/uL Hgb (12.0-18.0) g/dL Hct (35.0-51.0) % MCV (80.0-94.0) fL MCH (27.0-31.0) pg MCHC (33.0-37.0) g/dL RDW (11.5-14.5) % Plt Count (130-400) K/uL MPV (7.2-11.7) fL Neut % (Auto) (50.0-75.0) % Lymph % (Auto) (20.0-40.0) % [place] % (Auto) (0.0-10.0) % Eos % (Auto) (0.0-4.0) % Baso % (Auto) (0.0-2.0) % Neut # (Auto) (1.8-7.0) K/uL Lymph # (Auto) (1.0-4.3) K/uL [place] # (Auto) (0.0-0.8) K/uL Eos # (Auto) (0.0-0.7) K/uL Baso # (Auto) (0.0-0.2) K/uL Neutrophils % (Manual) (50-75) % Band Neutrophils % (0-2) % Lymphocytes % (Manual) (20-40) % Monocytes % (Manual) (0-10) % Platelet Estimate (NORMAL) Hypochromasia (manual) Poikilocytosis (manual Anisocytosis (manual) Target Cells Tear Drop Cells Zenia Cells PT 13.2 H (9.7-12.2) SECONDS INR 1.2 APTT 29 (21-34) SECONDS Sodium (132-148) mmol/L Potassium (3.6-5.2) mmol/L Chloride (98-107) mmol/L Carbon Dioxide (22-30) mmol/L Anion Gap (10-20) BUN (9-20) mg/dL Creatinine (0.8-1.5) mg/dL Est GFR ( Amer) Est GFR (Non-Af Amer) Random Glucose (75-110) mg/dL Calcium (8.6-10.4) mg/dl Phosphorus (2.5-4.5) mg/dL Magnesium (1.6-2.3) mg/dL Total Bilirubin (0.2-1.3) mg/dL AST (17-59) U/L ALT (21-72) U/L Alkaline Phosphatase (38-126) U/L Total Protein (6.3-8.3) g/dL Albumin (3.5-5.0) g/dL Globulin (2.2-3.9) gm/dL Albumin/Globulin Ratio (1.0-2.1) Alpha Fetoprotein 4.1 (0.0-7.5) ng/mL Carcinoembryonic Ag 8.9 H (0-3.0) ng/mL CA 19-9 Antigen 16.7 (0-37) U/mL Blood Type Antibody Screen 10/09/18 10/09/18 10/06/18 Range/Units 05:53 05:51 19:45 WBC 12.0 H (4.8-10.8) K/uL RBC 2.51 L (4.40-5.90) Mil/uL Hgb 7.7 L (12.0-18.0) g/dL Hct 23.9 L (35.0-51.0) % MCV 95.1 H (80.0-94.0) fL MCH 30.5 (27.0-31.0) pg MCHC 32.1 L (33.0-37.0) g/dL RDW 22.2 H (11.5-14.5) % Plt Count 111 L (130-400) K/uL MPV 9.2 (7.2-11.7) fL Neut % (Auto) 94.5 H (50.0-75.0) % Lymph % (Auto) 1.8 L (20.0-40.0) % [place] % (Auto) 3.5 (0.0-10.0) % Eos % (Auto) 0.0 (0.0-4.0) % Baso % (Auto) 0.2 (0.0-2.0) % Neut # (Auto) 11.4 H (1.8-7.0) K/uL Lymph # (Auto) 0.2 L (1.0-4.3) K/uL [place] # (Auto) 0.4 (0.0-0.8) K/uL Eos # (Auto) 0.0 (0.0-0.7) K/uL Baso # (Auto) 0.0 (0.0-0.2) K/uL Neutrophils % (Manual) 92 H (50-75) % Band Neutrophils % 2 (0-2) % Lymphocytes % (Manual) 3 L (20-40) % Monocytes % (Manual) 3 (0-10) % Platelet Estimate Slightly decreased L (NORMAL) Hypochromasia (manual) Moderate Poikilocytosis (manual Slight Anisocytosis (manual) Slight Target Cells Slight Tear Drop Cells Slight Zenia Cells Slight PT (9.7-12.2) SECONDS INR APTT (21-34) SECONDS Sodium 142 (132-148) mmol/L Potassium 4.2 (3.6-5.2) mmol/L Chloride 113 H (98-107) mmol/L Carbon Dioxide 21 L (22-30) mmol/L Anion Gap 13 (10-20) BUN 28 H (9-20) mg/dL Creatinine 1.6 H (0.8-1.5) mg/dL Est GFR ( Amer) 51 Est GFR (Non-Af Amer) 42 Random Glucose 100 (75-110) mg/dL Calcium 7.5 L (8.6-10.4) mg/dl Phosphorus 3.0 (2.5-4.5) mg/dL Magnesium 1.9 (1.6-2.3) mg/dL Total Bilirubin 0.7 (0.2-1.3) mg/dL AST 30 (17-59) U/L ALT 20 L (21-72) U/L Alkaline Phosphatase 311 H (38-126) U/L Total Protein 4.7 L (6.3-8.3) g/dL Albumin 2.6 L (3.5-5.0) g/dL Globulin 2.0 L (2.2-3.9) gm/dL Albumin/Globulin Ratio 1.3 (1.0-2.1) Alpha Fetoprotein (0.0-7.5) ng/mL Carcinoembryonic Ag (0-3.0) ng/mL CA 19-9 Antigen (0-37) U/mL Blood Type A POSITIVE Antibody Screen Negative Laboratory Results - last 24 hr 10/06/18 10/09/18 10/09/18 19:45 05:51 05:53 WBC 12.0 H RBC 2.51 L Hgb 7.7 L Hct 23.9 L MCV 95.1 H MCH 30.5 MCHC 32.1 L RDW 22.2 H Plt Count 111 L MPV 9.2 Neut % (Auto) 94.5 H Lymph % (Auto) 1.8 L [place] % (Auto) 3.5 Eos % (Auto) 0.0 Baso % (Auto) 0.2 Neut # (Auto) 11.4 H Lymph # (Auto) 0.2 L [place] # (Auto) 0.4 Eos # (Auto) 0.0 Baso # (Auto) 0.0 Neutrophils % (Manual) 92 H Band Neutrophils % 2 Lymphocytes % (Manual) 3 L Monocytes % (Manual) 3 Platelet Estimate Slightly decreased L Hypochromasia (manual) Moderate Poikilocytosis (manual Slight Anisocytosis (manual) Slight Target Cells Slight Tear Drop Cells Slight Zenia Cells Slight PT INR APTT Sodium 142 Potassium 4.2 Chloride 113 H Carbon Dioxide 21 L Anion Gap 13 BUN 28 H Creatinine 1.6 H Est GFR ( Amer) 51 Est GFR (Non-Af Amer) 42 Random Glucose 100 Calcium 7.5 L Phosphorus 3.0 Magnesium 1.9 Total Bilirubin 0.7 AST 30 ALT 20 L Alkaline Phosphatase 311 H Total Protein 4.7 L Albumin 2.6 L Globulin 2.0 L Albumin/Globulin Ratio 1.3 Alpha Fetoprotein Carcinoembryonic Ag CA 19-9 Antigen Blood Type A POSITIVE Antibody Screen Negative 10/09/18 10/09/18 10/09/18 10:49 10:49 10:49 WBC RBC Hgb Hct MCV MCH MCHC RDW Plt Count MPV Neut % (Auto) Lymph % (Auto) [place] % (Auto) Eos % (Auto) Baso % (Auto) Neut # (Auto) Lymph # (Auto) [place] # (Auto) Eos # (Auto) Baso # (Auto) Neutrophils % (Manual) Band Neutrophils % Lymphocytes % (Manual) Monocytes % (Manual) Platelet Estimate Hypochromasia (manual) Poikilocytosis (manual Anisocytosis (manual) Target Cells Tear Drop Cells Keira Cells PT 13.2 H INR 1.2 APTT 29 Sodium Potassium Chloride Carbon Dioxide Anion Gap BUN Creatinine Est GFR ( Amer) Est GFR (Non-Af Amer) Random Glucose Calcium Phosphorus Magnesium Total Bilirubin AST ALT Alkaline Phosphatase Total Protein Albumin Globulin Albumin/Globulin Ratio Alpha Fetoprotein 4.1 Carcinoembryonic Ag 8.9 H CA 19-9 Antigen 16.7 Blood Type Antibody Screen Radiology Impressions: Radiology Impressions Abdomen Ultrasound 10/09/18 11:38 IMPRESSION: Limited exam-for ascites sonographic evaluation for paracentesis. Critical Care Progress Note - Nutrition Nutrition: Nutrition Category Date Time Status Heart Healthy Diet [DIET] Diets 10/08/18 Lunch Active Assessment/Plan - Assessment and Plan (Free Text) Plan: Patient is a 78 year old male with PMHx of HTN, CHF, Prostate CA with bone metastasis, Aflutter, Gastritis, Arthritis, CAD, and hypothyroidism, presented to the ED on 10/06 for abdominal pain, was found to have an incarcerated umbilical hernia and ascites. Hemoglobin on presentation was 8.7 and fecal occult was positive. Patient transfused 1 unit PRBC on 10/07/2017. Patient presenting today with increased distention and pressure in abdomen. Neuro - AAOx3, following commands no acute issues Cardiac - Hx of CHF, CAD: Continue Amiodarone 200mg, Lasix 20mg, Crestor 5mg BID - Echo 10/08: severe LV systolic dysfunction, dilated LA and LV, mild to moderate AR and MR, severe TR, small pericardial effusion - f/u Dr. Maxim gutierrez Pulm - No respiratory complaints, continue to monitor GI - Stool occult positive - stool electrolytes negative - Abdominal u/s 10/09: limited study for ascites sonographic evaluation for paracentesis - Ascites drained with paracentesis, 2L drained from abdomen - fluid sent for cultures, WBC, cytology - Umbilical Hernia present, reducible - 10/07 Obstructive Series: findings concerning small bowel obstruction - Zofran PRN for nausea - Protonix - HHD - f/u Dr. Fuentes gutierrez Renal - Cr 1.6 today, continue to monitor - Flomax for hx of BPH - monitor [facility] Endo - Hx of Hypothyroidism, continue Levothyroxine 50 mcg Hem/onc -Hb 7.7 today, down from 8.0 -2 units PRBC order by primary -monitor CBC -CEA 8.9 ID - Leukocytosis: WBC 12 today, up from 10.9 - Band count 2 today, down from 37 - Afebrile, Tmax 99F - Continue Zosyn PPx - Morphine 15mg PO, Percocet 5mg PRN for pain - Protonix for GI ppx - SCDs for DVT ppx Discussed with Dr. Jj Rod, PGY-1 - Date & Time Date: 10/09/18 Time: 09:00
[2018-10-09] MEDS ORDERED: Petrolatum Oint Foilpak (5 gm) TOP PRN (14:31)
[2018-10-09] MEDS ORDERED: Alum-Mag Hydrox-Simethicone Susp (30 mL) PO ONE (14:40)
--- NOTE | 2018-10-09 15:28 | PCM.PROC ---
Procedures Attestation:: I certify that I have explained the specified Operation(s) or Procedure(s), risks, benefits and reasonable alternatives to the Patient and/or other person responsible. The opportunity was given to ask questions and all questions answered - Paracentesis Consent Obtained: written consent Indication: Ascites Procedure: therapeutic paracentesis Location: LLQ Local Anesthetic Used: lidocaine 1%
[2018-10-09 16:25] LABS: BODY FLUID TYPE PERITONEAL/ASCITES
[2018-10-09 17:38] LABS: BF GROSS APPEARANCE CLEAR (CLEAR); BODY FLUID MONO/MACROPHAGE 13 % (0-0); BODY FLUID TOTAL COUNT 100 (0-0)
--- NOTE | 2018-10-09 21:21 | CP.PCM.PN ---
Subjective - Date & Time of Evaluation Date of Evaluation: 10/09/18 Time of Evaluation: 14:20 - Subjective Subjective: dictated Objective - Vital Signs/Intake and Output Vital Signs (last 24 hours): Temp Pulse Resp BP Pulse Ox 98.1 F 74 22 95/59 L 96 10/09/18 19:07 10/09/18 19:08 10/09/18 19:08 10/09/18 19:08 10/09/18 19:08 Intake and Output: 10/09/18 10/10/18 18:59 06:59 Intake Total 1925 120 Output Total 500 Balance 1425 120 - Medications Medications: Current Medications Amiodarone HCl (Cordarone) 200 mg PO DAILY [facility] Last Admin: 10/09/18 11:52 Dose: 200 mg Emollient Ointment (Vaseline Oint) 2 gm TOP BID PRN PRN Reason: Dry skin Last Admin: 10/09/18 18:26 Dose: 2 gm Furosemide (Lasix) 20 mg PO DAILY [facility] Last Admin: 10/09/18 11:53 Dose: 20 mg Home Med (Abiraterone Acetate [Zytiga]) 250 mg PO DAILY [facility] Home Med (Bicalutamide [Casodex]) 50 mg PO DAILY [facility] Piperacillin Sod/Tazobactam (Sod 3.375 gm/ Sodium Chloride) 100 mls @ 200 mls/hr IVPB Q6H [facility]; Protocol Last Admin: 10/09/18 19:30 Dose: 200 mls/hr Levothyroxine Sodium (Synthroid) 50 mcg PO DAILY@0630 [facility] Last Admin: 10/09/18 05:45 Dose: 50 mcg Morphine Sulfate (Morphine Immediate Release Tab) 15 mg PO Q6H PRN PRN Reason: Pain, severe (8-10) Ondansetron HCl (Zofran Inj) 4 mg IVP Q6 PRN PRN Reason: Nausea/Vomiting Last Admin: 10/06/18 21:27 Dose: 4 mg Pantoprazole Sodium (Protonix Inj) 40 mg IVP Q12 [facility] Last Admin: 10/09/18 21:14 Dose: 40 mg Prednisone (Prednisone Tab) 5 mg PO BID [facility] Last Admin: 10/09/18 18:25 Dose: 5 mg Rosuvastatin Calcium (Crestor) 5 mg PO HS [facility] Last Admin: 10/09/18 21:14 Dose: 5 mg Tamsulosin HCl (Flomax) 0.4 mg PO DAILY [facility] Last Admin: 10/09/18 09:37 Dose: 0.4 mg - Labs Labs: 10/09/18 05:53 10/09/18 05:51 PT 13.2 SECONDS (9.7-12.2) H 10/09/18 10:49 INR 1.2 10/09/18 10:49 APTT 29 SECONDS (21-34) 10/09/18 10:49
[2018-10-10] MEDS: Piperacillin/Tazobact 3.375 GM in Sodium Chloride 100 ML IVPB SCH ×3 (00:08→12:33)
--- NOTE | 2018-10-10 01:38 | PN ---
DATE: 10/09/2018 SUBJECTIVE: The patient, Jermain Murray hemoglobin is steadily dropping. The patient is status post paracentesis. He is afebrile. No nausea or vomiting. No chest pain. PHYSICAL EXAMINATION: VITAL SIGNS: Blood pressure 95/59, pulse 80, respiratory rate 21, temperature 98.1. LUNGS: Clear. No rales. No rhonchi. CARDIOVASCULAR SYSTEM: S1 and S2 plus S3 positive. ABDOMEN: Positive ascites. ASSESSMENT: 1. Gastrointestinal bleed, drop in hemoglobin. The patient is dropping steadily. We will transfuse the patient as of stabilizing him in a patient with congestive heart failure. 2. History of congestive heart failure, dilated cardiomyopathy. 3. Hypotension. 4. Cirrhosis of the liver with ascites. PLAN: Medical management. Blood pressure. Monitor the patient. Gregory Thrasher MD
[2018-10-10] MEDS ORDERED: Alum-Mag Hydrox-Simethicone Susp (30 mL) PO ONE (02:40)
[2018-10-10 03:23] VITALS: O2SAT 100
[2018-10-10] MEDS: Levothyroxine 50 MCG TAB PO SCH (05:38)
[2018-10-10 06:23] LABS: BASO % 0.2 % (0.0-2.0); HEMOGLOBIN 9.7 g/dL (12.0-18.0); LYMPH # 0.4 K/uL (1.0-4.3); LYMPH % 3.4 % (20.0-40.0); MEAN CELL VOLUME 93.9 fL (80.0-94.0); MONO # 0.4 K/uL (0.0-0.8); MONO % 3.8 % (0.0-10.0); NEUT # 10.3 K/uL (1.8-7.0); NEUT % 92.6 % (50.0-75.0); NRBC % 0.2 % (0.0-2.0); PLATELET COUNT 106 K/uL (130-400); RBC 3.25 Mil/uL (4.40-5.90); RED CELL DISTRIBUTION WIDTH 20.3 % (11.5-14.5); WHITE BLOOD COUNT 11.1 K/uL (4.8-10.8)
[2018-10-10 06:37] LABS: ALB/GLOB RATIO 1.2 (1.0-2.1); ALBUMIN 2.6 g/dL (3.5-5.0); CALCIUM 7.9 mg/dl (8.6-10.4)
[2018-10-10 08:26] LABS: LYMPHOCYTE 1 % (20-40); MONOCYTE 1 % (0-10); NEUTROPHIL 98 % (50-75); TOTAL CELLS COUNTED 100
[2018-10-10 08:27] LABS: ANISOCYTOSIS SLIGHT; PLATELET ESTIMATE SLIGHTLY DECREASED (NORMAL)
[2018-10-10 08:28] LABS: HYPOCHROMIC SLIGHT; POLYCHROMIC SLIGHT
--- NOTE | 2018-10-10 10:02 | CP.PCM.PN ---
Subjective - Date & Time of Evaluation Date of Evaluation: 10/10/18 Time of Evaluation: 10:02 - Subjective Subjective: Dr. Pan Cardiology Service Patient seen and examined at bedside. Per nursing no acute events occurred overnight. Patient denies any chest pain, shortness of breath, fevers, chills, nausea, vomiting, headaches, syncopal episodes, or any other complaints. Objective - Vital Signs/Intake and Output Vital Signs (last 24 hours): Temp Pulse Resp BP Pulse Ox 98.2 F 68 20 100/61 100 10/10/18 08:00 10/10/18 09:08 10/10/18 09:08 10/10/18 09:08 10/10/18 07:07 Intake and Output: 10/10/18 10/10/18 06:59 18:59 Intake Total 320 Output Total 600 Balance -280 - Medications Medications: Current Medications Amiodarone HCl (Cordarone) 200 mg PO DAILY [facility] Last Admin: 10/09/18 11:52 Dose: 200 mg Emollient Ointment (Vaseline Oint) 2 gm TOP BID PRN PRN Reason: Dry skin Last Admin: 10/09/18 18:26 Dose: 2 gm Furosemide (Lasix) 20 mg PO DAILY [facility] Last Admin: 10/09/18 11:53 Dose: 20 mg Home Med (Abiraterone Acetate [Zytiga]) 250 mg PO DAILY [facility] Home Med (Bicalutamide [Casodex]) 50 mg PO DAILY [facility] Piperacillin Sod/Tazobactam (Sod 3.375 gm/ Sodium Chloride) 100 mls @ 200 mls/hr IVPB Q6H [facility]; Protocol Last Admin: 10/10/18 05:15 Dose: 200 mls/hr Levothyroxine Sodium (Synthroid) 50 mcg PO DAILY@0630 [facility] Last Admin: 10/10/18 05:38 Dose: 50 mcg Morphine Sulfate (Morphine Immediate Release Tab) 15 mg PO Q6H PRN PRN Reason: Pain, severe (8-10) Ondansetron HCl (Zofran Inj) 4 mg IVP Q6 PRN PRN Reason: Nausea/Vomiting Last Admin: 10/06/18 21:27 Dose: 4 mg Pantoprazole Sodium (Protonix Inj) 40 mg IVP Q12 [facility] Last Admin: 10/09/18 21:14 Dose: 40 mg Prednisone (Prednisone Tab) 5 mg PO BID [facility] Last Admin: 10/09/18 18:25 Dose: 5 mg Rosuvastatin Calcium (Crestor) 5 mg PO HS [facility] Last Admin: 10/09/18 21:14 Dose: 5 mg Tamsulosin HCl (Flomax) 0.4 mg PO DAILY [facility] Last Admin: 10/09/18 09:37 Dose: 0.4 mg - Labs Labs: 10/10/18 06:09 10/10/18 06:00 PT 13.2 SECONDS (9.7-12.2) H 10/09/18 10:49 INR 1.2 10/09/18 10:49 APTT 29 SECONDS (21-34) 10/09/18 10:49 - Head Exam Head Exam: NORMAL INSPECTION - Eye Exam Eye Exam: EOMI, Normal appearance, PERRL Pupil Exam: NORMAL ACCOMODATION, PERRL - ENT Exam ENT Exam: Mucous Membranes Moist, Normal Exam - Cardiovascular Exam Cardiovascular Exam: REGULAR RHYTHM, +S1, +S2 - GI/Abdominal Exam GI & Abdominal Exam: Soft, Normal Bowel Sounds. absent: Hyperactive Bowel Sounds - Extremities Exam Extremities Exam: Full ROM. absent: Pedal Edema - Back Exam Back Exam: NORMAL INSPECTION. absent: CVA tenderness (R), paraspinal tenderness - Neurological Exam Neurological Exam: Alert, Awake, CN II-XII Intact, Oriented x3 - Psychiatric Exam Psychiatric exam: Normal Affect, Normal Mood - Skin Skin Exam: Dry, Intact Assessment and Plan - Assessment and Plan (Free Text) Assessment: 78 year old male with a past medical history of prostate cancer, cad, atrial flutter s/p ablation, gastritis, and hypertension admitted for small bowel obstruction.
--- NOTE | 2018-10-10 11:26 | CP.PCM.PN ---
Subjective - Date & Time of Evaluation Date of Evaluation: 10/10/18 Time of Evaluation: 11:23 - Subjective Subjective: GI Progress Note for Dr. Dill Patient seen and examined at bedside this morning. Per ICU team, patient downg raded to telemetry status. Patient denies chest pain, SOB, nausea, vomiting. Patient states he had 2 non-bloody BMs this morning after getting laxatives. He also had paracentesis s/p 2L of ascitic fluid removal by Dr. Gardner yesterday, 10/09. Patient states abdominal pressure still present and that the fluid removal did not improve how he feels. Denies pain. Patient also wants to go home. Objective - Vital Signs/Intake and Output Vital Signs (last 24 hours): Temp Pulse Resp BP Pulse Ox 98.2 F 70 21 94/61 L 100 10/10/18 08:00 10/10/18 11:08 10/10/18 11:08 10/10/18 11:08 10/10/18 07:07 Intake and Output: 10/10/18 10/10/18 06:59 18:59 Intake Total 320 120 Output Total 600 Balance -280 120 - Medications Medications: Current Medications Amiodarone HCl (Cordarone) 200 mg PO DAILY [facility] Last Admin: 10/10/18 09:58 Dose: 200 mg Emollient Ointment (Vaseline Oint) 2 gm TOP BID PRN PRN Reason: Dry skin Last Admin: 10/09/18 18:26 Dose: 2 gm Furosemide (Lasix) 20 mg PO DAILY [facility] Last Admin: 10/10/18 09:58 Dose: 20 mg Home Med (Abiraterone Acetate [Zytiga]) 250 mg PO DAILY [facility] Home Med (Bicalutamide [Casodex]) 50 mg PO DAILY [facility] Piperacillin Sod/Tazobactam (Sod 3.375 gm/ Sodium Chloride) 100 mls @ 200 mls/hr IVPB Q6H [facility]; Protocol Last Admin: 10/10/18 05:15 Dose: 200 mls/hr Levothyroxine Sodium (Synthroid) 50 mcg PO DAILY@0630 [facility] Last Admin: 10/10/18 05:38 Dose: 50 mcg Morphine Sulfate (Morphine Immediate Release Tab) 15 mg PO Q6H PRN PRN Reason: Pain, severe (8-10) Ondansetron HCl (Zofran Inj) 4 mg IVP Q6 PRN PRN Reason: Nausea/Vomiting Last Admin: 10/06/18 21:27 Dose: 4 mg Pantoprazole Sodium (Protonix Inj) 40 mg IVP Q12 [facility] Last Admin: 10/10/18 09:59 Dose: 40 mg Prednisone (Prednisone Tab) 5 mg PO BID [facility] Last Admin: 10/10/18 09:58 Dose: 5 mg Rosuvastatin Calcium (Crestor) 5 mg PO HS [facility] Last Admin: 10/09/18 21:14 Dose: 5 mg Tamsulosin HCl (Flomax) 0.4 mg PO DAILY [facility] Last Admin: 10/10/18 09:58 Dose: 0.4 mg - Labs Labs: 10/10/18 06:09 10/10/18 06:00 PT 13.2 SECONDS (9.7-12.2) H 10/09/18 10:49 INR 1.2 10/09/18 10:49 APTT 29 SECONDS (21-34) 10/09/18 10:49 - Constitutional Appears: Well, Non-toxic, Cachectic - Head Exam Head Exam: ATRAUMATIC, NORMAL INSPECTION, NORMOCEPHALIC - Eye Exam Eye Exam: EOMI, Normal appearance - Neck Exam Neck Exam: Normal Inspection - Respiratory Exam Respiratory Exam: Clear to Ausculation Bilateral, NORMAL BREATHING PATTERN - Cardiovascular Exam Cardiovascular Exam: REGULAR RHYTHM - GI/Abdominal Exam GI & Abdominal Exam: Distended (+fluid wave abdominal ascites), Soft, Hernia (umbilical), Normal Bowel Sounds. absent: Rigid, Tenderness - Back Exam Back Exam: NORMAL INSPECTION - Neurological Exam Neurological Exam: Alert, Awake, Oriented x3 - Psychiatric Exam Psychiatric exam: Normal Affect, Normal Mood - Skin Skin Exam: Dry, Intact, Normal Color, Warm Assessment and Plan - Assessment and Plan (Free Text) Assessment: 78 y/o male with PMHx of prostate CA w/ mets to bone, CAD, CHF, gastritis, HTN admitted 10/07 with abdominal pain, increased abdominal distension over a month's time, and rectal bleeding. ascites -s/p paracentesis, removal of 2L clear fluid 10/09. Pending fluid study results. -inconsistent SAAG calculated on multiple readings (>1.5 or <1.5). It is possible that patient has ascites 2/2 portal HTN and also causes not related to portal HTN simultaneously such as malignancy (prostate CA). Elevated CEA of 8.9. AST and ALT wnl, but AP elevated (300s) indicative of the bone mets. -MELD score = 12 points (6% estimated 3 month mortality). MELD score relatively low so patient's ascites less likely primarily due to cirrhosis. bandemia/sepsis - resolved -patient admitted with bandemia, resolved -results on this admission on 10/09: - stool lytes, -stool leukocytes, - francisco monella, - shigella. -Cannot r/o infectious causes. SBO and ischemic colitis unlikely as patient hav ing BMs and denies abdominal pain. -continue w/ zosyn - started 10/07 -continue to monitor BMs and abdominal exam -consider norfloxacin 400 mg daily for SBP prophylaxis upon discharge Prostate CA w/ mets to bone -Heme onc was not consulted during this admission. Recommend outpatient f/u w/ heme onc -agree with palliative care consult that ICU team made to discuss goals of care CHF -we recommend patient to be on lasix and aldactone -defer management to primary case discussed with Dr. Fuentes Watkins PGY1
[2018-10-10 12:25] VITALS: BP 101/67; PULSE 69; RESP 19; TEMP 97.8
--- NOTE | 2018-10-10 12:43 | CP.PCM.PN ---
Subjective - Date & Time of Evaluation Date of Evaluation: 10/10/18 Time of Evaluation: 12:30 - Subjective Subjective: patient seen tosay states feels better, denies any abdominal pain, N/V, + BM and tolerating diet vss and labs reviewed- stable Objective - Vital Signs/Intake and Output Vital Signs (last 24 hours): Temp Pulse Resp BP Pulse Ox 97.8 F 69 19 101/67 100 10/10/18 12:00 10/10/18 12:07 10/10/18 12:07 10/10/18 12:07 10/10/18 07:07 Intake and Output: 10/10/18 10/10/18 06:59 18:59 Intake Total 320 120 Output Total 600 Balance -280 120 - Medications Medications: Current Medications Amiodarone HCl (Cordarone) 200 mg PO DAILY [facility] Last Admin: 10/10/18 09:58 Dose: 200 mg Emollient Ointment (Vaseline Oint) 2 gm TOP BID PRN PRN Reason: Dry skin Last Admin: 10/09/18 18:26 Dose: 2 gm Furosemide (Lasix) 20 mg PO DAILY [facility] Last Admin: 10/10/18 09:58 Dose: 20 mg Home Med (Abiraterone Acetate [Zytiga]) 250 mg PO DAILY [facility] Home Med (Bicalutamide [Casodex]) 50 mg PO DAILY [facility] Piperacillin Sod/Tazobactam (Sod 3.375 gm/ Sodium Chloride) 100 mls @ 200 mls /hr IVPB Q6H [facility]; Protocol Last Admin: 10/10/18 12:33 Dose: 200 mls/hr Levothyroxine Sodium (Synthroid) 50 mcg PO DAILY@0630 [facility] Last Admin: 10/10/18 05:38 Dose: 50 mcg Morphine Sulfate (Morphine Immediate Release Tab) 15 mg PO Q6H PRN PRN Reason: Pain, severe (8-10) Ondansetron HCl (Zofran Inj) 4 mg IVP Q6 PRN PRN Reason: Nausea/Vomiting Last Admin: 10/06/18 21:27 Dose: 4 mg Pantoprazole Sodium (Protonix Inj) 40 mg IVP Q12 [facility] Last Admin: 10/10/18 09:59 Dose: 40 mg Prednisone (Prednisone Tab) 5 mg PO BID [facility] Last Admin: 10/10/18 09:58 Dose: 5 mg Rosuvastatin Calcium (Crestor) 5 mg PO HS [facility] Last Admin: 10/09/18 21:14 Dose: 5 mg Tamsulosin HCl (Flomax) 0.4 mg PO DAILY [facility] Last Admin: 10/10/18 09:58 Dose: 0.4 mg - Labs Labs: 10/10/18 06:09 10/10/18 06:00 PT 13.2 SECONDS (9.7-12.2) H 10/09/18 10:49 INR 1.2 10/09/18 10:49 APTT 29 SECONDS (21-34) 10/09/18 10:49 Assessment and Plan - Assessment and Plan (Free Text) Assessment: a/p 78 year old male with a past medical history of prostate cancer, cad, atrial flutter s/p ablation, gastritis, and hypertension admitted for small bowel obstruction, ascitis, anemia s/p PRBC transfusion an dhgb stable s/p paracentesis, 2L drained from abdomen Patient having BM D/W Dr. Thrasher cleared for discharge and f/u with his office in 5-7 days Discharge plan discussed with patient who understands and agrees with plans patient instructed to returns to ED if symptoms returns or any other concerning symptoms
--- NOTE | 2018-10-10 14:17 | CP.PCM.CON ---
History of Present Illness - History of Present Illness History of Present Illness: Palliative consult requested by Doctor Rod for goals of care discussion Patient is a 78 yo male admitted from home with suprapubic pain X 2 days. Pain was accompanied by distention and felt as throbbing pain. Patient did not take any pain meds at home. Patient also noticed blood after moving his bowels. It was trace of blood when wiping. No blood thinners. Abd X ray showed Liver cirrhosis, ascites and diffuse skeletal mets. patient has known Hx of prostate CA and was fallowed by Doctor Juan Diego. Patient has been treated for his cancer for about 5 years, on Lupron. GI consult was called with Doctor Dill and is pending. PMH: prostate cancer, mets to bones, fallowed by Doctor Adamson as outpatient, liver cirrhosis , CAD, HTN, CHF Soc. Hx: , lives at home Fam. Hx: No cancer in family Review of Systems - Constitutional Constitutional: absent: As Per HPI, Anorexia, Chills, Daytime Sleepiness, Excessive Sweating, Fatigue, Fever, Frequent Falls, Headache, Increased Appetite, Lethargy, Malaise, Night Sweats, Snoring, Sleep Apnea, Weight Gain, Weight Loss, Weakness, Other - EENT Eyes: absent: As Per HPI, Blind Spots, Blurred Vision, Change in Vision, Decreased Night Vision, Diplopia, Discharge, Dry Eye, Exophthalmos, Floaters, Irritation, Itchy Eyes, Loss of Peripheral Vision, Pain, Photophobia, Requires Corrective Lenses, Sees Flashes, Spots in Vision, Tunnel Vision, Other Visual Disturbances, Loss of Vision, Other Ears: absent: As Per HPI, Decreased Hearing, Ear Discharge, Ear Pain, Tinnitus, Abnormal Hearing, Disequilibrium, Dizziness, Other Nose/Mouth/Throat: absent: As Per HPI, Epistaxis, Nasal Congestion, Nasal Discharge, Nasal Obstruction, Nasal Trauma, Nose Pain, Post Nasal Drip, Sinus Pain, Sinus Pressure, Bleeding Gums, Change in Voice, Dental Pain, Dry Mouth, Dysphagia, Halitosis, Hoarsness, Lip Swelling, Mouth Lesions, Mouth Pain, Odynophagia, Sore Throat, Throat Swelling, Tongue Swelling, Facial Pain, Neck Pain, Neck Mass, Other - Cardiovascular Cardiovascular: absent: As Per HPI, Acrocyanosis, Chest Pain, Chest Pain at Rest, Chest Pain with Activity, Claudication, Diaphoresis, Dyspnea, Dyspnea on Exertion, Edema, Irregular Heart Rhythm, Pain Radiating to Arm/Neck/Jaw, Leg Edema, Leg Ulcers, Lightheadedness, Orthopnea, Palpitations, Paroxysmal Nocturnal Dyspnea, Pedal Edema, Radiating Pain, Rapid Heart Rate, Slow Heart Rate, Syncope, Other - Respiratory Respiratory: absent: As Per HPI, Cough, Dyspnea, Hemoptysis, Dyspnea on Exertion, Wheezing, Snoring, Stridor, Pain on Inspiration, Chest Congestion, Excessive Mucous Production, Change in Mucous Color, Pain with Coughing, Other - Gastrointestinal Gastrointestinal: Bloating - Genitourinary Genitourinary: absent: As Per HPI, Change in Urinary Stream, Difficulty Urinating, Dysuria, Flank Pain, Hematuria, Pyuria, Nocturia, Urinary Incontinence, Urinary Frequency, Urinary Hesitance, Urinary Urgency, Voiding Fr eq/Small Amts, Freq UTI, Hx Renal/Bladder Calculi, Hx /Renal Surgery, Bladder Distension, Other - Musculoskeletal Musculoskeletal: absent: As Per HPI, Abnormal Gait, Arthralgias, Atrophy, Back Pain, Deformity, Joint Swelling, Limited Range of Motion, Loss of Height, Muscle Cramps, Muscle Weakness, Myalgias, Neck Pain, Numbness, Radiating Pain into Limb, Stiffness, Tingling, Other - Integumentary Integumentary: absent: As Per HPI, Acne, Alopecia, Bleeding Lesions, Change in Hair, Change in Nails, Change in Pigmentation, Changing Lesions, Dry Skin, Erythema, Furuncle, Hirsutism, Lesions, New Lesions, Non-Healing Lesions, Photosensitivity, Pruritus, Rash, Skin Pain, Skin Ulcer, Sores, Striae, Swelling, Unusual Bruising, Wounds, Jaundice, Other - Neurological Neurological: absent: As Per HPI, Abnormal Gait, Abnormal Hearing, Abnormal Movements, Abnormal Speech, Behavioral Changes, Burning Sensations, Confusion, Convulsions, Disequilibrium, Dizziness, Numbness, Focal Weakness, Frequent Falls, Headaches, Lack of Coordination, Loss of Vision, Memory Loss, Paresthesias, Radicular Pain, Restless Legs, Sensory Deficit, Syncope, Tingling, Tremor, Vertigo, Weakness, Other Visual Disturbances, Other - Psychiatric Psychiatric: absent: As Per HPI, Abnormal Sleep Pattern, Anhedonia, Anxiety, Auditory Hallucinations, Behavioral Changes, Change in Appetite, Change in Libido, Confusion, Depression, Difficulty Concentrating, Hallucinations, Homicidal Ideation, Hopelessness, Irritability, Memory Loss, Mood Swings, Panic Attacks, Paranoia, Suicidal Ideation, Visual Hallucinations, Tactile Hallucinations, Other - Endocrine Endocrine: absent: As Per HPI, Change in Body Appearance, Change in Libido, Cold Intolorance, Deepening of Voice, Excessive Sweating, Fatigue, Flushing, Heat Intolorance, Increase in Ring/Shoe/Hat Size, Palpitations, Polydipsia, Polyphagia, Polyuria, Other - Hematologic/Lymphatic Hematologic: absent: As Per HPI, Easy Bleeding, Easy Bruising, Lymphadenopathy, Other Past Patient History - Infectious Disease Hx of Infectious Diseases: None - Tetanus Immunizations Tetanus Immunization: Unknown - Past Medical History & Family History Past Medical History?: Yes - Past Social History Smoking Status: Smoker Currrent Status Unknown - CARDIAC Hx Congestive Heart Failure: Yes Hx Hypertension: Yes - PULMONARY Hx Respiratory Disorders: No - NEUROLOGICAL Hx Neurological Disorder: No - HEENT Hx HEENT Problems: No - RENAL Hx Chronic Kidney Disease: No - ENDOCRINE/METABOLIC Hx Endocrine Disorders: No - HEMATOLOGICAL/ONCOLOGICAL Hx Blood Disorders: Yes Hx Cancer: Yes (PROSTATE) Hx Chemotherapy: Yes - INTEGUMENTARY Hx Dermatological Problems: No - MUSCULOSKELETAL/RHEUMATOLOGICAL Hx Falls: No - GASTROINTESTINAL Hx Gall Bladder Disease: Yes Hx Gastritis: Yes - GENITOURINARY/GYNECOLOGICAL Hx Genitourinary Disorders: No - PSYCHIATRIC Hx Substance Use: No - SURGICAL HISTORY Hx Surgeries: Yes Other/Comment: hernia repair 03/20/17 - ANESTHESIA Hx Anesthesia: Yes Hx Anesthesia Reactions: No Hx Malignant Hyperthermia: No Meds Home Medications: Home Medication List Medication Instructions Recorded Confirmed Type Pantoprazole [Protonix] 40 mg PO DAILY #15 ect 10/10/18 Rx Allergies/Adverse Reactions: Allergies Allergy/AdvReac Type Severity Reaction Status Date / Time No Known Allergies Allergy Verified 10/06/18 19:23 - Medications Medications: Current Medications Amiodarone HCl (Cordarone) 200 mg PO DAILY [facility] Last Admin: 10/10/18 09:58 Dose: 200 mg Emollient Ointment (Vaseline Oint) 2 gm TOP BID PRN PRN Reason: Dry skin Last Admin: 10/09/18 18:26 Dose: 2 gm Furosemide (Lasix) 20 mg PO DAILY [facility] Last Admin: 10/10/18 09:58 Dose: 20 mg Home Med (Abiraterone Acetate [Zytiga]) 250 mg PO DAILY [facility] Home Med (Bicalutamide [Casodex]) 50 mg PO DAILY [facility] Piperacillin Sod/Tazobactam (Sod 3.375 gm/ Sodium Chloride) 100 mls @ 200 mls/hr IVPB Q6H [facility]; Protocol Last Admin: 10/10/18 12:33 Dose: 200 mls/hr Levothyroxine Sodium (Synthroid) 50 mcg PO DAILY@0630 [facility] Last Admin: 10/10/18 05:38 Dose: 50 mcg Morphine Sulfate (Morphine Immediate Release Tab) 15 mg PO Q6H PRN PRN Reason: Pain, severe (8-10) Ondansetron HCl (Zofran Inj) 4 mg IVP Q6 PRN PRN Reason: Nausea/Vomiting Last Admin: 10/06/18 21:27 Dose: 4 mg Pantoprazole Sodium (Protonix Inj) 40 mg IVP Q12 [facility] Last Admin: 10/10/18 09:59 Dose: 40 mg Prednisone (Prednisone Tab) 5 mg PO BID [facility] Last Admin: 10/10/18 09:58 Dose: 5 mg Rosuvastatin Calcium (Crestor) 5 mg PO HS [facility] Last Admin: 10/09/18 21:14 Dose: 5 mg Tamsulosin HCl (Flomax) 0.4 mg PO DAILY [facility] Last Admin: 10/10/18 09:58 Dose: 0.4 mg Physical Exam - Constitutional Appears: Chronically Ill - Head Exam Head Exam: ATRAUMATIC, NORMAL INSPECTION, NORMOCEPHALIC - Eye Exam Eye Exam: EOMI, Normal appearance, PERRL Pupil Exam: NORMAL ACCOMODATION, PERRL - ENT Exam ENT Exam: Mucous Membranes Moist, Normal Exam - Neck Exam Neck exam: Positive for: Normal Inspection - Respiratory Exam Respiratory Exam: Decreased Breath Sounds, NORMAL BREATHING PATTERN - Cardiovascular Exam Cardiovascular Exam: Tachycardia, REGULAR RHYTHM - GI/Abdominal Exam GI & Abdominal Exam: Diminished Bowel Sounds, Distended - Rectal Exam Rectal Exam: Deferred - Exam Exam: NORMAL INSPECTION - Extremities Exam Extremities exam: Positive for: normal inspection - Back Exam Back exam: NORMAL INSPECTION - Neurological Exam Neurological exam: Alert, Normal Gait, Oriented x3 - Psychiatric Exam Psychiatric exam: Normal Affect, Normal Mood - Skin Skin Exam: Dry, Normal Color, Warm Results - Vital Signs Recent Vital Signs: Last Vital Signs Temp 97.8 F 10/10/18 12:00 Pulse 69 10/10/18 12:07 Resp 19 10/10/18 12:07 BP 101/67 10/10/18 12:07 Pulse Ox 100 10/10/18 07:07 - Labs Result Diagrams: 10/10/18 06:09 10/10/18 06:00 Labs: Laboratory Results - last 24 hr 10/06/18 10/09/18 10/09/18 19:45 16:00 16:24 WBC RBC Hgb Hct MCV MCH MCHC RDW Plt Count MPV Neut % (Auto) Lymph % (Auto) [place] % (Auto) Eos % (Auto) Baso % (Auto) Neut # (Auto) Lymph # (Auto) [place] # (Auto) Eos # (Auto) Baso # (Auto) Neutrophils % (Manual) Lymphocytes % (Manual) Monocytes % (Manual) Platelet Estimate Polychromasia Hypochromasia (manual) Anisocytosis (manual) Sodium Potassium Chloride Carbon Dioxide Anion Gap BUN Creatinine Est GFR ( Amer) Est GFR (Non-Af Amer) POC Glucose (mg/dL) 133 H Random Glucose Calcium Phosphorus Magnesium Total Bilirubin AST ALT Alkaline Phosphatase Total Protein Albumin Globulin Albumin/Globulin Ratio Fluid Source Peritoneal/ascites Fluid Appearance Clear Fluid WBC 115.0 Fluid RBC 17.0 H Fluid Tot Cell Count 100 H Fluid Neutrophils 80.0 H Fluid Lymphocytes 7.0 H Fld Monocyte/Macrophag 13 H Fluid Comment Blood Type A POSITIVE Antibody Screen Negative 10/10/18 10/10/18 06:00 06:09 WBC 11.1 H RBC 3.25 L Hgb 9.7 L D Hct 30.5 L MCV 93.9 MCH 30.0 MCHC 32.0 L RDW 20.3 H Plt Count 106 L MPV 10.0 Neut % (Auto) 92.6 H Lymph % (Auto) 3.4 L [place] % (Auto) 3.8 Eos % (Auto) 0.0 Baso % (Auto) 0.2 Neut # (Auto) 10.3 H Lymph # (Auto) 0.4 L [place] # (Auto) 0.4 Eos # (Auto) 0.0 Baso # (Auto) 0.0 Neutrophils % (Manual) 98 H Lymphocytes % (Manual) 1 L Monocytes % (Manual) 1 Platelet Estimate Slightly decreased L Polychromasia Slight Hypochromasia (manual) Slight Anisocytosis (manual) Slight Sodium 137 Potassium 4.2 Chloride 106 Carbon Dioxide 24 Anion Gap 11 BUN 24 H Creatinine 1.4 Est GFR ( Amer) 59 Est GFR (Non-Af Amer) 49 POC Glucose (mg/dL) Random Glucose 91 Calcium 7.9 L Phosphorus 2.6 Magnesium 1.8 Total Bilirubin 0.8 AST 34 ALT 19 L Alkaline Phosphatase 294 H Total Protein 4.8 L Albumin 2.6 L Globulin 2.2 Albumin/Globulin Ratio 1.2 Fluid Source Fluid Appearance Fluid WBC Fluid RBC Fluid Tot Cell Count Fluid Neutrophils Fluid Lymphocytes Fld Monocyte/Macrophag Fluid Comment Blood Type Antibody Screen Assessment & Plan - Assessment and Plan (Free Text) Assessment: Palliative consult Full Code, there is no Advance directive on chart, PPS 40% I reviewed all medical records, diagnostic studies, examined and interviewed patient in the bed Patient is alert, oriented X 3 with speech that is clear and very pleasant. Patient is not in acute distress but looks chronically ill. Skin is dry, no wounds, mild pedal edema. Breathing is shallow, normal breathing pattern. Abdomen is softly distended, making breathing difficult. Patient reports having paracentesis in the past for the same issue. Denies pain/ nausea, tolerates diet well. Patient was seen by Doctor Fuentes, but ENDO procedure was not suggested just yet due to patient's current ascites. Patient was pending discharge home this PM. BP 101/67, HR 69, RR 19 WBC 11.1, Hb 9.7 I discussed with patient his condition with his side at bed side. I elicited his understanding of his diagnosis. patient is aware of his Cancer diagnosis but at first was not able to connect his current symptoms with the diagnosis. patient was under the impression that nausea and abdominal pain were caused by the food. Patient had no fecal blood on this admission. Patient also complained of B/L shoulders pain, what is new to him but did not know where it was coming from. With his permission to speak freely I reviewed that his cancer has advanced to the bones and that is what was causing his pain. I also helped him understand the relationship between liver cirrhosis and his distended abdomen. Patient took all the information very well and asked what to expect for the future. I offered more information about low Na diet at home, taking lasix and laxatives to promote bowel regimen and also talked to him about Pleurex Cath procedure if ascites get worse. Patient seemed very intrested and said he would rather take Cath than frequent Paracentesis. he said he would discuss with Doctor Anna Marie about it. Impression * Metastatic disease * Abdominal ascites 2nd to liver cirrhosis * Shoulders pain due to bone mets * Patient is very stoic and is looking forward to fallow ups with Doctor Adamson as an outpatient * Patient is interested in Pleurex Cath procedure if ascites garry larger and more frequent Suggestion * I would consider Pleurex Cath to remove ascites what will improve patient's comfort and breathing . That could be scheduled as an outpatient * Mild pain meds for shoulders pain, advise on moist heat Tx as well * Bowel regimen * Fallow up with Doctor Juan Diego * This poor man will most likely come to the stage of his disease when comfort only care will be appropriate. * Agree with discharge home Advance care planing 36 min. Palliative care will sign off at this time. Thank you for the consult.
--- NOTE | 2018-10-10 21:47 | CP.PCM.PN ---
Subjective - Date & Time of Evaluation Date of Evaluation: 10/10/18 Time of Evaluation: 08:10 - Subjective Subjective: Patient seen and examined at bedside this morning. Denies chest pain and dyspnea Physical Examination - Constitutional Appears: Well, Non-toxic, Cachectic - Head Exam Head Exam: ATRAUMATIC, NORMAL INSPECTION, NORMOCEPHALIC - Eye Exam Eye Exam: EOMI, Normal appearance - Neck Exam Neck Exam: Normal Inspection - Respiratory Exam Respiratory Exam: Clear to Ausculation Bilateral, NORMAL BREATHING PATTERN - Cardiovascular Exam Cardiovascular Exam: REGULAR RHYTHM - GI/Abdominal Exam GI & Abdominal Exam: Distended (+fluid wave abdominal ascites), Soft, Hernia (umbilical), Normal Bowel Sounds. absent: Rigid, Tenderness - Back Exam Back Exam: NORMAL INSPECTION - Neurological Exam Neurological Exam: Alert, Awake, Oriented x3 - Psychiatric Exam Psychiatric exam: Normal Affect, Normal Mood - Skin Skin Exam: Dry, Intact, Normal Color, Warm Assessment and Plan - Assessment and Plan (Free Text) Assessment: 78 y/o male with PMHx of prostate CA w/ mets to bone, CAD, CHF, gastritis, HTN admitted 10/07 with abdominal pain, increased abdominal distension over a month's time, and rectal bleeding. ascites -s/p paracentesis, removal of 2L clear fluid 10/09. Pending fluid study results. -inconsistent SAAG calculated on multiple readings (>1.5 or <1.5). It is possible that patient has ascites 2/2 portal HTN and also causes not related to portal HTN simultaneously such as malignancy (prostate CA). Elevated CEA of 8.9. AST and ALT wnl, but AP elevated (300s) indicative of the bone mets. -MELD score = 12 points (6% estimated 3 month mortality). MELD score relatively low so patient's ascites less likely primarily due to cirrhosis. bandemia/sepsis - resolved -patient admitted with bandemia, resolved -results on this admission on 10/09: - stool lytes, -stool leukocytes, - salmonella, - shigella. -Cannot r/o infectious causes. SBO and ischemic colitis unlikely as patient having BMs and denies abdominal pain. -continue w/ zosyn - started 10/07 -continue to monitor BMs and abdominal exam -consider norfloxacin 400 mg daily for SBP prophylaxis upon discharge Prostate CA w/ mets to bone -Heme onc was not consulted during this admission. Recommend outpatient f/u w/ heme onc -agree with palliative care consult that ICU team made to discuss goals of care CHF -we recommend patient to be on lasix and aldactone -defer management to primary Objective - Vital Signs/Intake and Output Vital Signs (last 24 hours): Temp Pulse Resp BP Pulse Ox 97.8 F 69 19 101/67 100 10/10/18 12:00 10/10/18 12:07 10/10/18 12:07 10/10/18 12:07 10/10/18 07:07 Intake and Output: 10/10/18 10/11/18 18:59 06:59 Intake Total 120 Balance 120 - Labs Labs: 10/10/18 06:09 10/10/18 06:00 PT 13.2 SECONDS (9.7-12.2) H 10/09/18 10:49 INR 1.2 10/09/18 10:49 APTT 29 SECONDS (21-34) 10/09/18 10:49
--- NOTE | 2018-10-10 21:51 | CP.PCM.DIS ---
Provider - Provider Date of Admission: 10/06/18 22:06 Attending physician: Gregory Thrasher MD Consults: 10/06/18 20:09 Cardiology Consult Stat Comment: Consulting Provider: Romulo Pan Consulting Physician: Romulo Pan Reason for Consult: chf Gastroenterology Consult Stat Comment: Consulting Provider: Halle Dill Consulting Physician: Halle Dill Reason for Consult: cirrhosis 10/07/18 00:43 Physician Consult Stat Comment: Consulting Provider: Mode Rawls Consulting Physician: Mode Rawls Reason for Consult: GI bleed, bloody stool 10/07/18 08:11 Physician Consult Routine Comment: Consulting Provider: Lizzie Mendoza Consulting Physician: Lizzie Mendoza Reason for Consult: umbilical hernia 10/09/18 14:30 Wound Care [Nursing Referral for Wound Care] Routine Comment: Physician Instructions: Reason For Exam: PLEASE ASSESS RIGHT LOWER EXT, MEDIAL MALLEOLOUS 10/10/18 10:31 Palliative Care Consult Routine Comment: Consulting Provider: Edda Quiros Physician Instructions: Reason For Exam: goals of care discussion hx of prostate CA w/ mets Time Spent in preparation of Discharge (in minutes): 30 Hospital Course - Lab Results Lab Results: Micro Results 10/09/18 16:36 Ascitic Fluid Gram Stain - Final 10/09/18 16:36 Ascitic Fluid Body Fluid Culture - Preliminary NO GROWTH AFTER 24 HOURS 10/07/18 11:48 Stool Stool Culture - Final NO SALMONELLA, SHIGELLA OR CAMPYLOBACTER ISOLATED. 10/07/18 05:42 Naris MRSA Culture (Admit) - Final MRSA NOT DETECTED Most Recent Lab Values WBC 11.1 K/uL (4.8-10.8) H 10/10/18 06:09 RBC 3.25 Mil/uL (4.40-5.90) L 10/10/18 06:09 Hgb 9.7 g/dL (12.0-18.0) L D 10/10/18 06:09 Hct 30.5 % (35.0-51.0) L 10/10/18 06:09 MCV 93.9 fL (80.0-94.0) 10/10/18 06:09 MCH 30.0 pg (27.0-31.0) 10/10/18 06:09 MCHC 32.0 g/dL (33.0-37.0) L 10/10/18 06:09 RDW 20.3 % (11.5-14.5) H 10/10/18 06:09 Plt Count 106 K/uL (130-400) L 10/10/18 06:09 MPV 10.0 fL (7.2-11.7) 10/10/18 06:09 Neut % (Auto) 92.6 % (50.0-75.0) H 10/10/18 06:09 Lymph % (Auto) 3.4 % (20.0-40.0) L 10/10/18 06:09 [place] % (Auto) 3.8 % (0.0-10.0) 10/10/18 06:09 Eos % (Auto) 0.0 % (0.0-4.0) 10/10/18 06:09 Baso % (Auto) 0.2 % (0.0-2.0) 10/10/18 06:09 Neut # (Auto) 10.3 K/uL (1.8-7.0) H 10/10/18 06:09 Lymph # (Auto) 0.4 K/uL (1.0-4.3) L 10/10/18 06:09 [place] # (Auto) 0.4 K/uL (0.0-0.8) 10/10/18 06:09 Eos # (Auto) 0.0 K/uL (0.0-0.7) 10/10/18 06:09 Baso # (Auto) 0.0 K/uL (0.0-0.2) 10/10/18 06:09 Neutrophils % (Manual) 98 % (50-75) H 10/10/18 06:09 Band Neutrophils % 2 % (0-2) 10/09/18 05:53 Lymphocytes % (Manual) 1 % (20-40) L 10/10/18 06:09 Reactive Lymphs % 1 % (0-0) H 10/06/18 19:28 Monocytes % (Manual) 1 % (0-10) 10/10/18 06:09 Metamyelocytes % 6 % (0-0) H 10/07/18 00:56 Myelocytes % 1 % (0-0) H 10/07/18 00:56 Platelet Estimate Slightly decreased (NORMAL) L 10/10/18 06:09 Plt Clumps, EDTA Present 10/07/18 00:56 Polychromasia Slight 10/10/18 06:09 Hypochromasia (manual) Slight 10/10/18 06:09 Poikilocytosis (manual Slight 10/09/18 05:53 Anisocytosis (manual) Slight 10/10/18 06:09 Microcytosis (manual) Slight 10/08/18 06:07 Target Cells Slight 10/09/18 05:53 Tear Drop Cells Slight 10/09/18 05:53 Keira Cells Slight 10/09/18 05:53 PT 13.2 SECONDS (9.7-12.2) H 10/09/18 10:49 INR 1.2 10/09/18 10:49 APTT 29 SECONDS (21-34) 10/09/18 10:49 pO2 27 mm/Hg (30-55) L 10/06/18 00:01 VBG pH 7.23 (7.32-7.43) L 10/06/18 00:01 VBG pCO2 34 mmHg (40-60) L 10/06/18 00:01 VBG HCO3 13.7 mmol/L 10/06/18 00:01 VBG Total CO2 15.2 mmol/L (22-28) L 10/06/18 00:01 VBG O2 Sat (Calc) 41.5 % (40-65) 10/06/18 00:01 VBG Base Excess -12.3 mmol/L (0.0-2.0) L 10/06/18 00:01 VBG Potassium 4.1 mmol/L (3.6-5.2) 10/06/18 00:01 Sodium 145.0 mmol/l (132-148) 10/06/18 00:01 Chloride 110.0 mmol/L (98-107) H 10/06/18 00:01 Glucose 84 mg/dl (75-110) 10/06/18 00:01 Lactate 5.5 mmol/L (0.7-2.1) H* 10/06/18 00:01 Crit Value Called To Cher arrieta/adriana 10/06/18 00:01 Crit Value Called By Alonzo sorto/rt 10/06/18 00:01 Crit Value Read Back Y 10/06/18 00:01 Blood Gas Notified Time 10 10/06/18 00:01 Sodium 137 mmol/L (132-148) 10/10/18 06:00 Potassium 4.2 mmol/L (3.6-5.2) 10/10/18 06:00 Chloride 106 mmol/L (98-107) 10/10/18 06:00 Carbon Dioxide 24 mmol/L (22-30) 10/10/18 06:00 Anion Gap 11 (10-20) 10/10/18 06:00 BUN 24 mg/dL (9-20) H 10/10/18 06:00 Creatinine 1.4 mg/dL (0.8-1.5) 10/10/18 06:00 Est GFR ( Amer) 59 10/10/18 06:00 Est GFR (Non-Af Amer) 49 10/10/18 06:00 POC Glucose (mg/dL) 133 mg/dL (65-110) H 10/09/18 16:00 Random Glucose 91 mg/dL (75-110) 10/10/18 06:00 Lactic Acid 1.5 mmol/L (0.7-2.1) 10/07/18 08:34 Calcium 7.9 mg/dl (8.6-10.4) L 10/10/18 06:00 Phosphorus 2.6 mg/dL (2.5-4.5) 10/10/18 06:00 Magnesium 1.8 mg/dL (1.6-2.3) 10/10/18 06:00 Total Bilirubin 0.8 mg/dL (0.2-1.3) 10/10/18 06:00 AST 34 U/L (17-59) 10/10/18 06:00 ALT 19 U/L (21-72) L 10/10/18 06:00 Alkaline Phosphatase 294 U/L (38-126) H 10/10/18 06:00 Ammonia < 9 umol/L (9-33) L 10/06/18 19:28 Total Protein 4.8 g/dL (6.3-8.3) L 10/10/18 06:00 Albumin 2.6 g/dL (3.5-5.0) L 10/10/18 06:00 Globulin 2.2 gm/dL (2.2-3.9) 10/10/18 06:00 Albumin/Globulin Ratio 1.2 (1.0-2.1) 10/10/18 06:00 Lipase 93 U/L (23-300) 10/06/18 19:28 Alpha Fetoprotein 4.1 ng/mL (0.0-7.5) 10/09/18 10:49 Carcinoembryonic Ag 8.9 ng/mL (0-3.0) H 10/09/18 10:49 CA 19-9 Antigen 16.7 U/mL (0-37) 10/09/18 10:49 Venous Blood Potassium 4.1 mmol/L (3.6-5.2) 10/06/18 00:01 Fluid Source Peritoneal/ascites 10/09/18 16:24 Fluid Appearance Clear (CLEAR) 10/09/18 16:24 Fluid WBC 115.0 /mm3 (0.0-300.0) 10/09/18 16:24 Fluid RBC 17.0 /mm3 (0.0-0.0) H 10/09/18 16:24 Fluid Tot Cell Count 100 (0-0) H 10/09/18 16:24 Fluid Neutrophils 80.0 % (0-0) H 10/09/18 16:24 Fluid Lymphocytes 7.0 % (0-0) H 10/09/18 16:24 Fld Monocyte/Macrophag 13 % (0-0) H 10/09/18 16:24 Fluid Comment 10/09/18 16:24 Stool Occult Blood Positive (NEGATIVE) H 10/07/18 11:48 Stool Leukocytes, Qual Negative (NEGATIVE) 10/07/18 11:48 Blood Type A POSITIVE 10/06/18 19:45 Antibody Screen Negative 10/06/18 19:45 Discharge Exam - Head Exam Head Exam: ATRAUMATIC, NORMAL INSPECTION, NORMOCEPHALIC Discharge Plan - Discharge Medications Prescriptions: Pantoprazole [Protonix] 40 mg PO DAILY #15 ect - Follow Up Plan Condition: STABLE Disposition: HOME/ ROUTINE Instructions: Heart Failure, Adult, Fluid in the Belly (Ascites) (DC) Additional Instructions: Please f/u with Dr. Thrasher office either sat/ or Monday - (f/u visit and needs monitor labs) Please continue medications as per med. rec. PLEASE BLOOD SPLATTER ANALYST [facility] PRESCRIBED
--- NOTE | 2018-10-10 22:48 | CARD ---
APPROVED REPORT Date of service: 10/07/2018 EKG Measurement Heart [id number] <Conclusion> Sinus rhythm with premature supraventricular complexes and with occasional premature ventricular complexes Anterolateral infarct, age undetermined Abnormal ECG
--- NOTE | 2018-10-11 16:23 | DS ---
DISCHARGE DIAGNOSES: 1. . 2. . 3. Hypertension. 4. Cirrhosis of liver with ascites. 5. Stage IV malignant neoplasm of prostate. 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 He works. He came in because of rectal bleeding, which was bright red blood per rectum and the patient bleeding per rectum. Continually hemoglobin drop. The patient received multiple units of packed RBCs, conservative medical management and the patient did well and subsequently the patient was treated, stabilized, and discharged with outpatient followup. CONDITION UPON DISCHARGE: Stable. PHYSICAL EXAMINATION: VITAL SIGNS: Blood pressure 101/67, pulse 69, respiratory rate 19, and temperature 97.8. LUNGS: Clear. CARDIOVASCULAR: S1, S2 plus; S3 positive. ABDOMEN: Positive ascites. PLAN: Discharge patient. The patient will have repeat hemoglobin and he will be on Pepcid. Monitor patient. Gregory Thrasher MD
== END 2018-10-10 14:10 | disposition home or self-care (01) | DRG 432 ==
LOC: C.ER 19:10 → C.9E 22:06 → C.9I 10-07 03:39
PROVIDERS: ADMIT Internal Medicine; ATTEND Internal Medicine
PROC: 0W9G3ZX Drainage of Peritoneal Cavity, Percutaneous Approach, Diagnostic (ICD-10-PCS; principal; 2018-10-09)
DX: K70.31 Alcoholic cirrhosis of liver with ascites (principal); K57.91 Diverticulosis of intestine, part unspecified, without perforation or abscess with bleeding; C79.51 Secondary malignant neoplasm of bone; E46 Unspecified protein-calorie malnutrition; E87.2 Acidosis; K76.6 Portal hypertension; N17.9 Acute kidney failure, unspecified; K42.0 Umbilical hernia with obstruction, without gangrene; I50.22 Chronic systolic (congestive) heart failure; C61 Malignant neoplasm of prostate; D64.9 Anemia, unspecified; D69.6 Thrombocytopenia, unspecified; E03.9 Hypothyroidism, unspecified; F10.20 Alcohol dependence, uncomplicated; Z51.5 Encounter for palliative care; I11.0 Hypertensive heart disease with heart failure; I25.10 Atherosclerotic heart disease of native coronary artery without angina pectoris; G89.3 Neoplasm related pain (acute) (chronic)

== ENCOUNTER 2018-12-21 02:10 | Inpatient (IN) | payer BC, MEDICARE ==
[2018-12-21 02:11] VITALS: BMI 23.7
[2018-12-21 03:27] LABS: BASO % 0.6 % (0.0-2.0); EOS % 0.5 % (0.0-4.0); LYMPH # 0.2 K/uL (1.0-4.3); LYMPH % 3.9 % (20.0-40.0); MEAN CELL VOLUME 100.8 fL (80.0-94.0); MEAN CORPUSCULAR HEMOGLOBIN 33.4 pg (27.0-31.0); MEAN CORPUSCULAR HGB CONC 33.1 g/dL (33.0-37.0); MEAN PLATELET VOLUME 9.8 fL (7.2-11.7); MONO # 0.4 K/uL (0.0-0.8); MONO % 7.7 % (0.0-10.0); NEUT # 4.8 K/uL (1.8-7.0); NEUT % 87.3 % (50.0-75.0); NRBC % 0.1 % (0.0-2.0); PLATELET COUNT 72 K/uL (130-400); RBC 2.28 Mil/uL (4.40-5.90); RED CELL DISTRIBUTION WIDTH 20.7 % (11.5-14.5); WHITE BLOOD COUNT 5.5 K/uL (4.8-10.8)
[2018-12-21 03:32] LABS: HEMOGLOBIN 7.6 g/dL (12.0-18.0)
[2018-12-21 03:38] LABS: ALB/GLOB RATIO 1.3 (1.0-2.1)
[2018-12-21 03:48] LABS: ALBUMIN 3.2 g/dL (3.5-5.0); CALCIUM 8.3 mg/dl (8.6-10.4)
[2018-12-21] MEDS ORDERED: Sodium Chloride 0.9% 1,000 ML IV ONE (03:52)
[2018-12-21] MEDS ORDERED: Dextrose 5%/0.45% NS 1,000 ML IV SCH (05:00)
--- NOTE | 2018-12-21 05:04 | C.PDOC ---
History Of Present Illness 78 year old male with Hx of liver cirrhosis, ascites, and stage 4 prostate cancer, found lethargic by with some pain meds spilled on the ground, unsure if he overdosed by accident. 911 was called, EMS found patient lethargic, with pin point pupils, desatting, hypotensive at 80s systolic, 0.4mg narcan given with adequate response. 500cc fluids given with improvement of pressure. Upon arrival patient was awake but still appear somewhat tired. No complaints except abdominal pain and diarrhea for 2 days. noticed he was shaking earlier but denies seizure activity. Denies fever, vomiting, chest pain, or SOB. Time Seen by Provider: 12/21/18 02:15 Chief Complaint (Nursing): Altered Mental Status History Per: Patient, EMS, Family History/Exam Limitations: None Onset Of Symptoms: Cannot Confirm Onset Current Symptoms Are (Timing): Better Usual Baseline: Alert Oriented Exacerbating Factor(s): Other (Pain med overdose) Past Medical History Reviewed: Historical Data, Nursing Documentation, Vital Signs Vital Signs: Last Vital Signs Temp 98.8 F 12/21/18 04:53 Pulse 118 H 12/21/18 04:36 Resp 30 H 12/21/18 04:36 BP 83/53 L 12/21/18 04:36 Pulse Ox 98 12/21/18 04:36 - Medical History PMH: Arthritis (KNEE), CAD, CHF, Gastritis, Gall Bladder Disease, HTN, Malignan cy (Prostate) Denies: Chronic Kidney Disease - [facility] Procedures DRAINAGE OF PERITONEAL CAVITY, PERCUTANEOUS APPROACH (01/24/18) DRAINAGE OF PERITONEAL CAVITY, PERCUTANEOUS APPROACH, DIAGN (10/06/18) ULTRASONOGRAPHY OF ABDOMEN (09/12/17) Family History: States: Unknown Family Hx - Social History Hx Tobacco Use: No Hx Alcohol Use: No Hx Substance Use: No - Immunization History Hx Tetanus Toxoid Vaccination: (unk) Hx Influenza Vaccination: Yes Hx Pneumococcal Vaccination: (unk) Review Of Systems Constitutional: Positive for: Other (Lethargic). Negative for: Fever, Chills Cardiovascular: Negative for: Chest Pain, Palpitations Respiratory: Negative for: Cough, Shortness of Breath Gastrointestinal: Positive for: Abdominal Pain, Diarrhea. Negative for: Vomiting Genitourinary: Negative for: Dysuria, Hematuria Musculoskeletal: Negative for: Back Pain Skin: Negative for: Rash Neurological: Negative for: Weakness, Numbness Physical Exam - Physical Exam Appears: Other (Tired, Cachetic) Skin: Jaundice Head: Atraumatic, Normacephalic Eye(s): bilateral: Other (3mm pupils weakly reactive) Oral Mucosa: Moist Chest: Symmetrical, No Tenderness Cardiovascular: Rhythm Regular (Tachycardic) Respiratory: Normal Breath Sounds, No Rales, No Rhonchi, No Wheezing Gastrointestinal/Abdominal: Soft, Tenderness (Very mild diffuse), Distention (Mild), No Guarding, No Rebound, Hernia (Umbilical, soft, reducible) Rectal: Heme Positive (weakly positive, soft yellow stool), No Maroon Stool, No Melena, No Hemorrhoids Extremity: No Pedal Edema, No Deformity Neurological/Psych: Other (Awake, answers questions) ED Course And Treatment - Laboratory Results Result Diagrams: 12/21/18 03:11 12/21/18 03:11 Lab Results: Total Bilirubin 5.0 mg/dL (0.2-1.3) H 12/21/18 03:11 AST 76 U/L (17-59) H D 12/21/18 03:11 ALT 15 U/L (21-72) L D 12/21/18 03:11 Alkaline Phosphatase 469 U/L (38-126) H D 12/21/18 03:11 Total Protein 5.7 g/dL (6.3-8.3) L 12/21/18 03:11 Albumin 3.2 g/dL (3.5-5.0) L D 12/21/18 03:11 Globulin 2.5 gm/dL (2.2-3.9) 12/21/18 03:11 Albumin/Globulin Ratio 1.3 (1.0-2.1) 12/21/18 03:11 ECG: Interpreted By Me, Viewed By Me ECG Rhythm: Sinus Tachycardia ECG Interpretation: Normal Interpretation Of ECG: Left axis deviation, prolong qtc, no st elevations, occasional pvc Rate From EC O2 Sat by Pulse Oximetry: 98 (Room air) Pulse Ox Interpretation: Normal - Radiology CXR: Interpreted by Me CXR Interpretation: Yes: Cardiomegaly, Other (atelectasis RLL) Medical Decision Making Medical Decision Making: Plan: * EKG * Blood work * CXR * IV fluids Patient given 1L NS bolus. BP improved to 90's systolic. Labs done showing anemia, elevated Cr, and elevated bilirubin as compared to baseline (most recently September 2018). Rectal exam done given Hgb 7.6 and hemoccult was very weakly positive. Case discussed with Dr. Thrasher who accepts patient for admission. No additional Narcan was required throughout ED course. Disposition - Disposition Disposition: HOSPITALIZED Disposition Time: 04:40 Condition: FAIR - Clinical Impression Clinical Impression: Opiate overdose, Anemia, Acute kidney injury - Scribe Statement The provider has reviewed the documentation as recorded by the Scribfederico Elias All medical record entries made by the Gastonibfederico were at my direction and personally dictated by me. I have reviewed the chart and agree that the record accurately reflects my personal performance of the history, physical exam, medical decision making, and the department course for this patient. I have also personally directed, reviewed, and agree with the discharge instructions and disposition.
[2018-12-21 05:08] LABS: BANDS 2 % (0-2); LYMPHOCYTE 6 % (20-40); MONOCYTE 8 % (0-10); NEUTROPHIL 84 % (50-75); PLATELET ESTIMATE SLIGHTLY DECREASED (NORMAL); TOTAL CELLS COUNTED 100
[2018-12-21] MEDS ORDERED: Vancomycin 1 gm/NS 200 ml 1 GM/200 ML BAG IVPB STA (05:47)
[2018-12-21] MEDS ORDERED: Aztreonam 2 GM in Sodium Chloride 0.9% 100 ML IVPB STA (05:47)
[2018-12-21] MEDS ORDERED: Vancomycin 1 GM 1 GM/250 ML BAG IVPB ONE (06:00)
--- NOTE | 2018-12-21 06:28 | CP.PCM.CON ---
History of Present Illness - History of Present Illness History of Present Illness: Attending: Gregory Thrasher MD Reason for Consult: Critical care management Chief Complaint: AMS/Hypotension The patient was seen and examined in the ED HPI: The hx was obtained from the ED Physician and after review of the Laborator y, radiological and medical records. This is a 78 years old male with hx of liver cirrhosis with multiple Paracentesis, Arthritis for which he takes Morphine and Oxycodone, CHF and Prostate Cancer. He was found lethargic by at home with pills around him. The EMS found him lethargic, pupils pin pointed and hypotensive in the 80s. He responded to Narcan and was arousable on arrival at ED . No complains abdominal pain and diarrhea for 2 days with pain to the right ankle. The denied seizure activity, fever, vomiting or SOB. PMH: Arthritis (KNEE), CAD, CHF, Gastritis, Gall Bladder Disease, HTN, Prostate Ca stage IV; Liver Cirrhosis; Hypothyroidism; Umbilical hernia; A Fib; PSH: Inguinal hernia repair 2016; Paracentesis last 10/09/18 SH: Former Smoker; Former Alcohol abuser Quit 1977; No illegal drug use; Live with ; FH: No known family Hx Allergies: NKDA Medication: Reviewed Review of Systems - Review of Systems Review of Systems: Review of system is limited because the patient is very tired from his overdose of Morphine. - EENT Nose/Mouth/Throat: absent: Epistaxis, Nasal Discharge - Cardiovascular Cardiovascular: absent: Chest Pain, Dyspnea - Respiratory Respiratory: absent: Cough, Dyspnea, Wheezing - Gastrointestinal Gastrointestinal: Diarrhea. absent: Vomiting Past Patient History - Infectious Disease Hx of Infectious Diseases: None - Tetanus Immunizations Tetanus Immunization: Unknown - Past Medical History & Family History Past Medical History?: Yes - Past Social History Smoking Status: Former Smoker Alcohol: Other Drugs: Denies, Inhalants Home Situation {Lives}: With Family - CARDIAC Hx Congestive Heart Failure: Yes Hx Hypertension: Yes - PULMONARY Hx Respiratory Disorders: No - NEUROLOGICAL Hx Neurological Disorder: No - HEENT Hx HEENT Problems: No - RENAL Hx Chronic Kidney Disease: No - ENDOCRINE/METABOLIC Hx Endocrine Disorders: No - HEMATOLOGICAL/ONCOLOGICAL Hx Blood Disorders: Yes Hx Cancer: Yes (PROSTATE) Hx Chemotherapy: Yes - INTEGUMENTARY Hx Dermatological Problems: No - MUSCULOSKELETAL/RHEUMATOLOGICAL Hx Arthritis: Yes (KNEE) - GASTROINTESTINAL Hx Gall Bladder Disease: Yes Hx Gastritis: Yes - GENITOURINARY/GYNECOLOGICAL Hx Genitourinary Disorders: No - PSYCHIATRIC Hx Substance Use: No - SURGICAL HISTORY Hx Surgeries: Yes Other/Comment: hernia repair 03/20/17 - ANESTHESIA Hx Anesthesia: Yes Hx Anesthesia Reactions: No Hx Malignant Hyperthermia: No Meds Allergies/Adverse Reactions: Allergies Allergy/AdvReac Type Severity Reaction Status Date / Time No Known Allergies Allergy Verified 12/21/18 02:37 - Medications Medications: Current Medications Amiodarone HCl (Cordarone) 200 mg PO DAILY [facility] Famotidine (Pepcid) 20 mg IVP DAILY [facility] Home Med (Abiraterone Acetate [Zytiga]) 250 mg PO DAILY [facility] Home Med (Bicalutamide [Casodex]) 50 mg PO DAILY [facility] Home Med (Ranitidine Hcl [Ranitidine Hcl]) 300 mg PO DAILY [facility] Home Med (Simvastatin [Simvastatin]) 20 mg PO DAILY [facility] Dextrose/Sodium Chloride (Dextrose 5%/0.45% Ns 1000 Ml) 1,000 mls @ 50 mls/hr IV .Q20H [facility] Last Admin: 12/21/18 05:20 Dose: 50 mls/hr Aztreonam 2 gm/ Sodium (Chloride) 100 mls @ 100 mls/hr IVPB STAT STA; Protocol Stop: 12/21/18 06:46 Vancomycin/Sodium Chloride (Vancomycin 1 Gm/Ns 200 Ml) 1 gm in 200 mls @ 133 mls/hr IVPB STAT STA; Protocol Stop: 12/21/18 07:17 Last Admin: 12/21/18 06:18 Dose: 133 mls/hr Phenylephrine HCl 30 mg/ (Dextrose) 253 mls @ 20.24 mls/hr IV .[id number] PRN; Protocol PRN Reason: TITRATE PER MD ORDER Levothyroxine Sodium (Synthroid) 50 mcg PO DAILY [facility] Prednisone (Prednisone Tab) 5 mg PO BID [facility] Tamsulosin HCl (Flomax) 0.4 mg PO DAILY [facility] Physical Exam - Constitutional Appears: No Acute Distress - Head Exam Head Exam: ATRAUMATIC, NORMAL INSPECTION, NORMOCEPHALIC - Eye Exam Eye Exam: EOMI Pupil Exam: NORMAL ACCOMODATION - ENT Exam ENT Exam: Mucous Membranes Dry, Normal External Ear Exam - Neck Exam Neck exam: Positive for: Full Rom, Normal Inspection - Respiratory Exam Respiratory Exam: absent: Rhonchi, Wheezes Additional comments: Mild dry rales at the left base - Cardiovascular Exam Cardiovascular Exam: Irregular Rhythm, +S1, +S2. absent: Gallop - GI/Abdominal Exam Additional comments: Distended, Soft, mild tenderness on deep palpation. - Rectal Exam Additional comments: Guiac Indiscernible - Extremities Exam Extremities exam: Negative for: pedal edema Additional comments: Pain to the right ankle, foot and distal right leg. - Back Exam Back exam: NORMAL INSPECTION. absent: CVA tenderness (L), CVA tenderness (R) - Neurological Exam Additional comments: oriented to name. Awake, no facial droop, speech dysarthric , moving both upper extremities. - Psychiatric Exam Psychiatric exam: Normal Affect, Normal Mood - Skin Skin Exam: Intact, Normal Color, Warm Additional comments: Right leg distal half with hyperpigmented sckin painful to palpation at the ankle, no edema at present Results - Vital Signs Recent Vital Signs: Last Vital Signs Temp 98.8 F 12/21/18 04:53 Pulse 101 H 12/21/18 05:44 Resp 31 H 12/21/18 05:44 BP 86/61 L 12/21/18 05:44 Pulse Ox 100 12/21/18 05:44 - Labs Result Diagrams: 12/21/18 03:11 12/21/18 03:11 Labs: Laboratory Results - last 24 hr 12/21/18 12/21/18 12/21/18 03:11 03:11 04:56 WBC 5.5 D RBC 2.28 L Hgb 7.6 L D Hct 22.9 L MCV 100.8 H D MCH 33.4 H MCHC 33.1 RDW 20.7 H Plt Count 72 L D MPV 9.8 Neut % (Auto) 87.3 H Lymph % (Auto) 3.9 L [place] % (Auto) 7.7 Eos % (Auto) 0.5 Baso % (Auto) 0.6 Neut # (Auto) 4.8 Lymph # (Auto) 0.2 L [place] # (Auto) 0.4 Eos # (Auto) 0.0 Baso # (Auto) 0.0 Neutrophils % (Manual) 84 H Band Neutrophils % 2 Lymphocytes % (Manual) 6 L Monocytes % (Manual) 8 Platelet Estimate Slightly decreased L Sodium 140 Potassium 4.9 Chloride 109 H Carbon Dioxide 15 L Anion Gap 21 H BUN 74 H Creatinine 5.5 H Est GFR ( Amer) 12 Est GFR (Non-Af Amer) 10 Random Glucose 62 L D Lactic Acid 2.7 H Calcium 8.3 L Phosphorus 3.6 Magnesium 2.4 H Total Bilirubin 5.0 H AST 76 H D ALT 15 L D Alkaline Phosphatase 469 H D Total Protein 5.7 L Albumin 3.2 L D Globulin 2.5 Albumin/Globulin Ratio 1.3 - EKG Data EKG comments: Low voltage A Fib wit RVR 118/min - Imaging and Cardiology Chest x-ray Status: Image reviewed by me Additional comment: Increased Cardiac Silhouette, Interstitial infiltrateat the right base Assessment & Plan - Assessment and Plan (Free Text) Assessment: #. AMS due to Opiates overdose #. MAHIN #. Hypotension Probably secondary to dehydration and Opiates overdose #. Liver cirrhosis with Ascites #. Anemia #. Thrombocytopenia #. Hypoglycemia #. A Fib #. Hypothyroidism Plan: 78 years old male with hx of liver cirrhosis with multiple Paracentesis, Arthritis for which he takes Morphine and Oxycodone, CHF and Prostate Cancer, found lethargic by at home with pills around him. He responded to Narcan and was arousable on arrival at ED . He referred diarrhea for 2 days. #. AMS due to Opiates overdose - Patient given narcan with improvement in mental status - Admit to ICU - Telemetry monitoring #. MAHIN - Consider Nephrolopgy consult - IV fluids with bicarbonate because of Metabolic ACIDOSIS - Follow renal labs #. Hypotension Probably secondary to dehydration and Opiates overdose. Infection less likely - Monitor BP in ICU - IV Fluids - vasopressor if needed #. Liver cirrhosis with Ascites - Paracentesis when BP stabilize - Follow Liver enzymes #. Diarrhea. - Stool C&S - Stool For C Difficle - IV fluid #. Macrocytic Anemia Secondary to Liver cirrhosis. folic Acid and Vitamin B12 levels were normal in 10/10/18 - Follow HB and transfuse if HB < 7g/dl #. 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 Hypoglycemia due to poor intake in patient with MAHIN - IV fluid with Dextrose - Accucheck Q 2H #. A Fib - cardiac monitoring - Hold Amiodarone because of Low blood pressure - Hold anticoagulant because of severe anemia #. Hypothyroidism - Levothyroxin #. DVT prophylaxis with SCD - No anticoagulant because of Anemia Capo Clemens MD - Date & Time Date: 12/21/18 Time: 06:28
[2018-12-21] MEDS: Phenylephrine 30 MG in Dextrose 5% In Water 250 ML IV PRN ×3 (06:39→22:40)
[2018-12-21] MEDS ORDERED: Dextrose 50% SYRINGE Inj (50 ml) IV STA (07:05)
[2018-12-21 07:19] LABS: INR 2.2
[2018-12-21] MEDS ORDERED: Phytonadione 10 mg/ml Inj (Adult) IV ONE (07:57)
[2018-12-21 08:08] LABS: TROPONIN I 0.395 ng/mL (0.00-0.120)
[2018-12-21] MEDS ORDERED: Dextrose 5%/0.9% NS 1,000 ML IV ONE (08:21)
[2018-12-21] MEDS ORDERED: Phytonadione 10 MG in Sodium Chloride 0.9% 50 ML IV ONE (08:30)
--- NOTE | 2018-12-21 08:56 | RAD ---
Date of service: 12/21/2018 HISTORY: overdose COMPARISON: Comparison made with chest radiograph 09/12/2018 TECHNIQUE: 1 view obtained. FINDINGS: LUNGS: Slight elevation right hemidiaphragm with mild right basilar atelectasis. PLEURA: No significant pleural effusion identified, no pneumothorax apparent. CARDIOVASCULAR: No aortic atherosclerotic calcification present. Cardiomegaly. No pulmonary vascular congestion. OSSEOUS STRUCTURES: Diffuse sclerotic bone changes consistent with underlying blastic metastases. VISUALIZED UPPER ABDOMEN: Normal. OTHER FINDINGS: None. IMPRESSION: Slight elevation right hemidiaphragm with mild right basilar atelectasis. Diffuse sclerotic bone changes consistent with blastic metastasis likely prostatic in origin. Clinical correlation recommended.
[2018-12-21] MEDS ORDERED: Aztreonam 2 GM in Sodium Chloride 0.9% 100 ML IVPB ONE (10:00)
[2018-12-21] MEDS ORDERED: ABIRATERONE ACETATE 250 MG PO SCH ×2 (10:00)
[2018-12-21] MEDS ORDERED: RANITIDINE HCL 300 MG PO SCH (10:00)
[2018-12-21] MEDS ORDERED: Home Med 1 UNIT (Bicalutamide [Casodex] 50 MG) PO SCH (10:00)
--- NOTE | 2018-12-21 10:42 | CP.PCM.CON ---
History of Present Illness - History of Present Illness History of Present Illness: Cardiology Consult Note for Dr. Pan Past Patient History - Infectious Disease Hx of Infectious Diseases: None - Tetanus Immunizations Tetanus Immunization: Unknown - Past Medical History & Family History Past Medical History?: Yes - Past Social History Smoking Status: Former Smoker Alcohol: Other Drugs: Denies, Inhalants Home Situation {Lives}: With Family - CARDIAC Hx Congestive Heart Failure: Yes Hx Hypertension: Yes - PULMONARY Hx Respiratory Disorders: No - NEUROLOGICAL Hx Neurological Disorder: No - HEENT Hx HEENT Problems: No - RENAL Hx Chronic Kidney Disease: No - ENDOCRINE/METABOLIC Hx Endocrine Disorders: No - HEMATOLOGICAL/ONCOLOGICAL Hx Blood Disorders: Yes Hx Cancer: Yes (PROSTATE) Hx Chemotherapy: Yes - INTEGUMENTARY Hx Dermatological Problems: No - MUSCULOSKELETAL/RHEUMATOLOGICAL Hx Arthritis: Yes (KNEE) - GASTROINTESTINAL Hx Gall Bladder Disease: Yes Hx Gastritis: Yes - GENITOURINARY/GYNECOLOGICAL Hx Genitourinary Disorders: No - PSYCHIATRIC Hx Substance Use: No - SURGICAL HISTORY Hx Surgeries: Yes Other/Comment: hernia repair 03/20/17 - ANESTHESIA Hx Anesthesia: Yes Hx Anesthesia Reactions: No Hx Malignant Hyperthermia: No Meds Allergies/Adverse Reactions: Allergies Allergy/AdvReac Type Severity Reaction Status Date / Time No Known Allergies Allergy Verified 12/21/18 02:37 - Medications Medications: Current Medications Amiodarone HCl (Cordarone) 200 mg PO DAILY [facility] Famotidine (Pepcid) 20 mg IVP DAILY [facility] Last Admin: 12/21/18 10:36 Dose: Not Given Home Med (Abiraterone Acetate [Zytiga]) 250 mg PO DAILY [facility] Home Med (Bicalutamide [Casodex]) 50 mg PO DAILY [facility] Phenylephrine HCl 30 mg/ (Dextrose) 253 mls @ 20.24 mls/hr IV .[id number] PRN; Protocol PRN Reason: TITRATE PER MD ORDER Last Titration: 12/21/18 09:45 Dose: 60 mcg/min, 30.36 mls/hr Dextrose/Sodium Chloride (Dextrose 5%/0.9% Ns 1000 Ml) 1,000 mls @ 200 mls/hr IV .Q5H ONE Stop: 12/21/18 13:20 Last Admin: 12/21/18 08:51 Dose: 200 mls/hr Aztreonam 2 gm/ Sodium (Chloride) 100 mls @ 100 mls/hr IVPB ONCE ONE; Protocol Stop: 12/21/18 10:59 Last Admin: 12/21/18 10:35 Dose: 100 mls/hr Levothyroxine Sodium (Synthroid) 50 mcg PO DAILY@0630 [facility] Prednisone (Prednisone Tab) 5 mg PO BID [facility] Rosuvastatin Calcium (Crestor) 5 mg PO HS [facility] Tamsulosin HCl (Flomax) 0.4 mg PO DAILY [facility] Results - Vital Signs Recent Vital Signs: Last Vital Signs Temp 96.9 F L 12/21/18 09:03 Pulse 112 H 12/21/18 09:41 Resp 28 H 12/21/18 09:41 BP 73/46 L 12/21/18 09:41 Pulse Ox 95 12/21/18 08:50 - Labs Result Diagrams: 12/21/18 03:11 12/21/18 03:11 Labs: Laboratory Results - last 24 hr 12/21/18 12/21/18 12/21/18 03:11 03:11 04:56 WBC 5.5 D RBC 2.28 L Hgb 7.6 L D Hct 22.9 L MCV 100.8 H D MCH 33.4 H MCHC 33.1 RDW 20.7 H Plt Count 72 L D MPV 9.8 Neut % (Auto) 87.3 H Lymph % (Auto) 3.9 L [place] % (Auto) 7.7 Eos % (Auto) 0.5 Baso % (Auto) 0.6 Neut # (Auto) 4.8 Lymph # (Auto) 0.2 L [place] # (Auto) 0.4 Eos # (Auto) 0.0 Baso # (Auto) 0.0 Neutrophils % (Manual) 84 H Band Neutrophils % 2 Lymphocytes % (Manual) 6 L Monocytes % (Manual) 8 Platelet Estimate Slightly decreased L PT INR APTT Sodium 140 Potassium 4.9 Chloride 109 H Carbon Dioxide 15 L Anion Gap 21 H BUN 74 H Creatinine 5.5 H Est GFR ( Amer) 12 Est GFR (Non-Af Amer) 10 POC Glucose (mg/dL) Random Glucose 62 L D Lactic Acid 2.7 H Calcium 8.3 L Phosphorus 3.6 Magnesium 2.4 H Total Bilirubin 5.0 H AST 76 H D ALT 15 L D Alkaline Phosphatase 469 H D Ammonia Total Creatine Kinase Troponin I Total Protein 5.7 L Albumin 3.2 L D Globulin 2.5 Albumin/Globulin Ratio 1.3 Blood Type Antibody Screen 12/21/18 12/21/18 12/21/18 06:55 06:55 06:59 WBC RBC Hgb Hct MCV MCH MCHC RDW Plt Count MPV Neut % (Auto) Lymph % (Auto) [place] % (Auto) Eos % (Auto) Baso % (Auto) Neut # (Auto) Lymph # (Auto) [place] # (Auto) Eos # (Auto) Baso # (Auto) Neutrophils % (Manual) Band Neutrophils % Lymphocytes % (Manual) Monocytes % (Manual) Platelet Estimate PT 24.0 H INR 2.2 APTT 34 Sodium Potassium Chloride Carbon Dioxide Anion Gap BUN Creatinine Est GFR ( Amer) Est GFR (Non-Af Amer) POC Glucose (mg/dL) Random Glucose Lactic Acid Calcium Phosphorus Magnesium Total Bilirubin AST ALT Alkaline Phosphatase Ammonia 30 Total Creatine Kinase 628 H Troponin I 0.3950 H* Total Protein Albumin Globulin Albumin/Globulin Ratio Blood Type Antibody Screen 12/21/18 12/21/18 12/21/18 07:00 08:51 08:51 WBC RBC Hgb Hct MCV MCH MCHC RDW Plt Count MPV Neut % (Auto) Lymph % (Auto) [place] % (Auto) Eos % (Auto) Baso % (Auto) Neut # (Auto) Lymph # (Auto) [place] # (Auto) Eos # (Auto) Baso # (Auto) Neutrophils % (Manual) Band Neutrophils % Lymphocytes % (Manual) Monocytes % (Manual) Platelet Estimate PT INR APTT Sodium Potassium Chloride Carbon Dioxide Anion Gap BUN Creatinine Est GFR ( Amer) Est GFR (Non-Af Amer) POC Glucose (mg/dL) 52 L Random Glucose Lactic Acid 2.6 H Calcium Phosphorus Magnesium Total Bilirubin AST ALT Alkaline Phosphatase Ammonia Total Creatine Kinase Troponin I Total Protein Albumin Globulin Albumin/Globulin Ratio Blood Type A POSITIVE Antibody Screen Negative 12/21/18 08:51 WBC RBC Hgb Hct MCV MCH MCHC RDW Plt Count MPV Neut % (Auto) Lymph % (Auto) [place] % (Auto) Eos % (Auto) Baso % (Auto) Neut # (Auto) Lymph # (Auto) [place] # (Auto) Eos # (Auto) Baso # (Auto) Neutrophils % (Manual) Band Neutrophils % Lymphocytes % (Manual) Monocytes % (Manual) Platelet Estimate PT INR APTT Sodium Potassium Chloride Carbon Dioxide Anion Gap BUN Creatinine Est GFR ( Amer) Est GFR (Non-Af Amer) POC Glucose (mg/dL) Random Glucose Lactic Acid Calcium Phosphorus Magnesium Total Bilirubin AST ALT Alkaline Phosphatase Ammonia Total Creatine Kinase Troponin I 0.3570 H* Total Protein Albumin Globulin Albumin/Globulin Ratio Blood Type Antibody Screen
--- NOTE | 2018-12-21 11:13 | CP.PCM.CON ---
History of Present Illness - History of Present Illness History of Present Illness: Pulmonology Consult for Dr. Gardner's service CC: opiate overdose Patient very lethargic during interview. Answering questions tangentially and in appropriately multiple times. Stated he came in because his leg was hurting but does not know why he is admitted to hospital. Limited history due to patient clinical status currently. HPI collected mostly from ED documentation and chart review. HPI: The hx was obtained from the ED Physician and after review of the Laboratory, radiological and medical records. This is a 78 years old male with hx of liver cirrhosis with multiple Paracentesis, Arthritis for which he takes Morphine and Oxycodone, CHF and Prostate Cancer. He was found lethargic by at home with pills around him. The EMS found him lethargic, pupils pin pointed and hypotensive in the 80s. He responded to Narcan and was arousable on arrival at ED . No complains abdominal pain and diarrhea for 2 days with pain to the right ankle. The denied seizure activity, fever, vomiting or SOB. PMH: Arthritis (KNEE), CAD, CHF, Gastritis, Gall Bladder Disease, HTN, Prostate Ca stage IV; Liver Cirrhosis; Hypothyroidism; Umbilical hernia; A Fib; PSH: Inguinal hernia repair 2017; Paracentesis last 10/09/18 SH: Former Smoker; Former Alcohol abuser Quit 1977; No illegal drug use; Live with ; FH: No known family Hx Allergies: NKDA Medication: Reviewed Review of Systems - Review of Systems Systems not reviewed;Unavailable: Acuity of Condition All systems: reviewed and no additional remarkable complaints except Review of Systems: see HPI Past Patient History - Infectious Disease Hx of Infectious Diseases: None - Tetanus Immunizations Tetanus Immunization: Unknown - Past Medical History & Family History Past Medical History?: Yes - Past Social History Smoking Status: Former Smoker Alcohol: Other Drugs: Denies, Inhalants Home Situation {Lives}: With Family - CARDIAC Hx Congestive Heart Failure: Yes Hx Hypertension: Yes - PULMONARY Hx Respiratory Disorders: No - NEUROLOGICAL Hx Neurological Disorder: No - HEENT Hx HEENT Problems: No - RENAL Hx Chronic Kidney Disease: No - ENDOCRINE/METABOLIC Hx Endocrine Disorders: No - HEMATOLOGICAL/ONCOLOGICAL Hx Blood Disorders: Yes Hx Cancer: Yes (PROSTATE) Hx Chemotherapy: Yes - INTEGUMENTARY Hx Dermatological Problems: No - MUSCULOSKELETAL/RHEUMATOLOGICAL Hx Arthritis: Yes (KNEE) - GASTROINTESTINAL Hx Gall Bladder Disease: Yes Hx Gastritis: Yes - GENITOURINARY/GYNECOLOGICAL Hx Genitourinary Disorders: No - PSYCHIATRIC Hx Substance Use: No - SURGICAL HISTORY Hx Surgeries: Yes Other/Comment: hernia repair 03/20/17 - ANESTHESIA Hx Anesthesia: Yes Hx Anesthesia Reactions: No Hx Malignant Hyperthermia: No Meds Allergies/Adverse Reactions: Allergies Allergy/AdvReac Type Severity Reaction Status Date / Time No Known Allergies Allergy Verified 12/21/18 02:37 - Medications Medications: Current Medications Amiodarone HCl (Cordarone) 200 mg PO DAILY [facility] Famotidine (Pepcid) 20 mg IVP DAILY [facility] Last Admin: 12/21/18 10:36 Dose: Not Given Home Med (Abiraterone Acetate [Zytiga]) 250 mg PO DAILY [facility] Home Med (Bicalutamide [Casodex]) 50 mg PO DAILY [facility] Phenylephrine HCl 30 mg/ (Dextrose) 253 mls @ 20.24 mls/hr IV .[id number] PRN; Protocol PRN Reason: TITRATE PER MD ORDER Last Titration: 12/21/18 09:45 Dose: 60 mcg/min, 30.36 mls/hr Dextrose/Sodium Chloride (Dextrose 5%/0.9% Ns 1000 Ml) 1,000 mls @ 200 mls/hr IV .Q5H ONE Stop: 12/21/18 13:20 Last Admin: 12/21/18 08:51 Dose: 200 mls/hr Levothyroxine Sodium (Synthroid) 50 mcg PO DAILY@0630 [facility] Prednisone (Prednisone Tab) 5 mg PO BID [facility] Rosuvastatin Calcium (Crestor) 5 mg PO HS [facility] Tamsulosin HCl (Flomax) 0.4 mg PO DAILY [facility] Last Admin: 12/21/18 10:58 Dose: 0.4 mg Physical Exam - Constitutional Appears: Chronically Ill - Head Exam Head Exam: NORMAL INSPECTION, NORMOCEPHALIC - Eye Exam Eye Exam: EOMI. absent: Normal appearance, Nystagmus, Scleral icterus - ENT Exam ENT Exam: Mucous Membranes Dry - Respiratory Exam Respiratory Exam: Clear to Auscultation Bilateral, NORMAL BREATHING PATTERN - Cardiovascular Exam Cardiovascular Exam: REGULAR RHYTHM, +S1, +S2 - GI/Abdominal Exam GI & Abdominal Exam: Normal Bowel Sounds, Soft. absent: Tenderness - Extremities Exam Extremities exam: Positive for: normal inspection - Neurological Exam Neurological exam: Alert - Psychiatric Exam Psychiatric exam: Normal Affect, Normal Mood - Skin Skin Exam: Dry, Intact, Normal Color Results - Vital Signs Recent Vital Signs: Last Vital Signs Temp 96.9 F L 12/21/18 09:03 Pulse 112 H 12/21/18 09:41 Resp 28 H 12/21/18 09:41 BP 73/46 L 12/21/18 09:41 Pulse Ox 95 12/21/18 08:50 - Labs Result Diagrams: 12/21/18 03:11 12/21/18 03:11 Labs: Laboratory Results - last 24 hr 12/21/18 12/21/18 12/21/18 03:11 03:11 04:56 WBC 5.5 D RBC 2.28 L Hgb 7.6 L D Hct 22.9 L MCV 100.8 H D MCH 33.4 H MCHC 33.1 RDW 20.7 H Plt Count 72 L D MPV 9.8 Neut % (Auto) 87.3 H Lymph % (Auto) 3.9 L Bibb % (Auto) 7.7 Eos % (Auto) 0.5 Baso % (Auto) 0.6 Neut # (Auto) 4.8 Lymph # (Auto) 0.2 L Bibb # (Auto) 0.4 Eos # (Auto) 0.0 Baso # (Auto) 0.0 Neutrophils % (Manual) 84 H Band Neutrophils % 2 Lymphocytes % (Manual) 6 L Monocytes % (Manual) 8 Platelet Estimate Slightly decreased L PT INR APTT Sodium 140 Potassium 4.9 Chloride 109 H Carbon Dioxide 15 L Anion Gap 21 H BUN 74 H Creatinine 5.5 H Est GFR ( Amer) 12 Est GFR (Non-Af Amer) 10 POC Glucose (mg/dL) Random Glucose 62 L D Lactic Acid 2.7 H Calcium 8.3 L Phosphorus 3.6 Magnesium 2.4 H Total Bilirubin 5.0 H AST 76 H D ALT 15 L D Alkaline Phosphatase 469 H D Ammonia Total Creatine Kinase Troponin I Total Protein 5.7 L Albumin 3.2 L D Globulin 2.5 Albumin/Globulin Ratio 1.3 Blood Type Antibody Screen 12/21/18 12/21/18 12/21/18 06:55 06:55 06:59 WBC RBC Hgb Hct MCV MCH MCHC RDW Plt Count MPV Neut % (Auto) Lymph % (Auto) Bibb % (Auto) Eos % (Auto) Baso % (Auto) Neut # (Auto) Lymph # (Auto) Bibb # (Auto) Eos # (Auto) Baso # (Auto) Neutrophils % (Manual) Band Neutrophils % Lymphocytes % (Manual) Monocytes % (Manual) Platelet Estimate PT 24.0 H INR 2.2 APTT 34 Sodium Potassium Chloride Carbon Dioxide Anion Gap BUN Creatinine Est GFR ( Amer) Est GFR (Non-Af Amer) POC Glucose (mg/dL) Random Glucose Lactic Acid Calcium Phosphorus Magnesium Total Bilirubin AST ALT Alkaline Phosphatase Ammonia 30 Total Creatine Kinase 628 H Troponin I 0.3950 H* Total Protein Albumin Globulin Albumin/Globulin Ratio Blood Type Antibody Screen 12/21/18 12/21/18 12/21/18 07:00 08:51 08:51 WBC RBC Hgb Hct MCV MCH MCHC RDW Plt Count MPV Neut % (Auto) Lymph % (Auto) Bibb % (Auto) Eos % (Auto) Baso % (Auto) Neut # (Auto) Lymph # (Auto) Bibb # (Auto) Eos # (Auto) Baso # (Auto) Neutrophils % (Manual) Band Neutrophils % Lymphocytes % (Manual) Monocytes % (Manual) Platelet Estimate PT INR APTT Sodium Potassium Chloride Carbon Dioxide Anion Gap BUN Creatinine Est GFR ( Amer) Est GFR (Non-Af Amer) POC Glucose (mg/dL) 52 L Random Glucose Lactic Acid 2.6 H Calcium Phosphorus Magnesium Total Bilirubin AST ALT Alkaline Phosphatase Ammonia Total Creatine Kinase Troponin I Total Protein Albumin Globulin Albumin/Globulin Ratio Blood Type A POSITIVE Antibody Screen Negative 12/21/18 08:51 WBC RBC Hgb Hct MCV MCH MCHC RDW Plt Count MPV Neut % (Auto) Lymph % (Auto) Bibb % (Auto) Eos % (Auto) Baso % (Auto) Neut # (Auto) Lymph # (Auto) Bibb # (Auto) Eos # (Auto) Baso # (Auto) Neutrophils % (Manual) Band Neutrophils % Lymphocytes % (Manual) Monocytes % (Manual) Platelet Estimate PT INR APTT Sodium Potassium Chloride Carbon Dioxide Anion Gap BUN Creatinine Est GFR ( Amer) Est GFR (Non-Af Amer) POC Glucose (mg/dL) Random Glucose Lactic Acid Calcium Phosphorus Magnesium Total Bilirubin AST ALT Alkaline Phosphatase Ammonia Total Creatine Kinase Troponin I 0.3570 H* Total Protein Albumin Globulin Albumin/Globulin Ratio Blood Type Antibody Screen Assessment & Plan - Assessment and Plan (Free Text) Assessment: 78 years old male with hx of liver cirrhosis with multiple Paracentesis, Arthritis for which he takes Morphine and Oxycodone, CHF and Prostate Cancer. Admitted for possible opiate overdose. Plan: A: Opiate Overdose Anemia Hypotension MAHIN Elevated troponins Bilirubinemia P: Narcan was given in ED Transfuse as PRN; Macrocytic anemia likely due to folate or b12 deficiency, recommend folate and b12 levels BP support via IV fluids and pressors as per ICU MAHIN likely 2/2 to pre-renal in setting of low blood pressures; Recommend strict Is/Os No chest pain; recommend repeat EKG; elevated troponins likely related to slow clearance due to MAHIN trend bilirbuin levels; most likely related to liver cirrhosis and metastatic cancer PGY-1 Ramiro Stafford d/w Dr. Gardner
[2018-12-21] MEDS ORDERED: Glucagon Recombinant 1 mg Inj IM PRN (12:38)
[2018-12-21 12:44] LABS: BASO % 0.8 % (0.0-2.0); EOS % 0.5 % (0.0-4.0); HEMOGLOBIN 7.6 g/dL (12.0-18.0); LYMPH # 0.2 K/uL (1.0-4.3); LYMPH % 3.4 % (20.0-40.0); MEAN CELL VOLUME 101.3 fL (80.0-94.0); MEAN CORPUSCULAR HEMOGLOBIN 33.8 pg (27.0-31.0); MEAN CORPUSCULAR HGB CONC 33.4 g/dL (33.0-37.0); MEAN PLATELET VOLUME 10.9 fL (7.2-11.7); MONO # 0.5 K/uL (0.0-0.8); MONO % 8.7 % (0.0-10.0); NEUT # 4.5 K/uL (1.8-7.0); NEUT % 86.6 % (50.0-75.0); RBC 2.25 Mil/uL (4.40-5.90); WHITE BLOOD COUNT 5.2 K/uL (4.8-10.8)
[2018-12-21 12:49] LABS: PLATELET COUNT 110 K/uL (130-400)
[2018-12-21 12:58] LABS: ARTERIAL BLOOD GAS HCO3 15.6 mmol/L (21-28); ARTERIAL BLOOD GAS HEMOGLOBIN 7.5 g/dL (11.7-17.4); ARTERIAL BLOOD GAS O2 SAT 99.1 % (95-98); ARTERIAL BLOOD GAS PCO2 24 mm/Hg (35-45); ARTERIAL BLOOD GAS PH 7.33 (7.35-7.45); ARTERIAL BLOOD GAS PO2 92 mm/Hg (80-100); ARTERIAL BLOOD GAS TCO2 13.4 mmol/L (22-28)
[2018-12-21 13:23] LABS: BANDS 13 % (0-2); LYMPHOCYTE 6 % (20-40); MONOCYTE 6 % (0-10); MYELOCYTE 1 % (0-0); NEUTROPHIL 73 % (50-75); REACTIVE LYMPHOCYTES 1 % (0-0); TOTAL CELLS COUNTED 100
[2018-12-21 13:24] LABS: ANISOCYTOSIS SLIGHT; HYPOCHROMIC SLIGHT; PLATELET ESTIMATE SLIGHTLY DECREASED (NORMAL); POIKILOCYTOSIS SLIGHT
[2018-12-21 13:25] LABS: OVALOCYTES SLIGHT; TEARDROP CELLS SLIGHT
[2018-12-21 13:26] LABS: BURR CELLS MODERATE
--- NOTE | 2018-12-21 13:29 | US ---
Date of service: 12/21/2018 PROCEDURE: Ultrasound of the Kidneys HISTORY: Acute renal failure, r/o obstruction COMPARISON: None available. TECHNIQUE: Grayscale imaging was performed. FINDINGS: RIGHT KIDNEY: Measures: 10.7 cm. Normal in size, contour with diffuse increased echogenicity. No stone, solid mass lesion or hydronephrosis visualized. LEFT KIDNEY: Measures: 10.0 cm. Normal in size, contour with diffuse increased echogenicity. No stone, solid mass lesion or hydronephrosis visualized. OTHER FINDINGS: Gallbladder is distended. Diffuse gallbladder wall thickening is likely secondary to systemic process. There is a solitary gallstone. There is large abdominal ascites IMPRESSION: 1. Chronic renal parenchymal disease. 2. No nephrolithiasis or hydronephrosis. 3. Cholelithiasis. 4. Large abdominal ascites
--- NOTE | 2018-12-21 14:12 | CP.PCM.CON ---
History of Present Illness - History of Present Illness History of Present Illness: Palliative consult requested by Doctor Mcguire for goals of care discussion Patient is a 78 yo male admitted from home where he was found lethagic by his , with pain meds spilled over him. was not sure if patient accidentally overdosed him self and called 911. Upon arrival, EMS found patient unresponsive with pupils pinpointed and SBP of 80. After Narcan and IVF bolus patient become arousal. In Ed, patient complained of abdominal pain and diarrhea X 2 days. Patient has known Hx of liver cirrhosis and stage IV prostate cancer. Takes Morphine and Oxycodone at home for chronic pain. Patient with BP 73/46, on pressor. Diagnosed with Opioid overdose, dehydration and hypotension. Admitted to ICU for further care. PMH: liver cirrhosis, ascites, prostate CA stage IV, CHF, CAD Soc. Hx: lives at home with , former smoker, former ETOH abuse Fam. Hx: unknown Review of Systems - Constitutional Constitutional: Daytime Sleepiness, Malaise, Weakness - EENT Eyes: absent: As Per HPI, Blind Spots, Blurred Vision, Change in Vision, Decreased Night Vision, Diplopia, Discharge, Dry Eye, Exophthalmos, Floaters, Irritation, Itchy Eyes, Loss of Peripheral Vision, Pain, Photophobia, Requires Corrective Lenses, Sees Flashes, Spots in Vision, Tunnel Vision, Other Visual Disturbances, Loss of Vision, Other Ears: absent: As Per HPI, Decreased Hearing, Ear Discharge, Ear Pain, Tinnitus, Abnormal Hearing, Disequilibrium, Dizziness, Other Nose/Mouth/Throat: absent: As Per HPI, Epistaxis, Nasal Congestion, Nasal Discharge, Nasal Obstruction, Nasal Trauma, Nose Pain, Post Nasal Drip, Sinus Pain, Sinus Pressure, Bleeding Gums, Change in Voice, Dental Pain, Dry Mouth, Dy sphagia, Halitosis, Hoarsness, Lip Swelling, Mouth Lesions, Mouth Pain, Odynophagia, Sore Throat, Throat Swelling, Tongue Swelling, Facial Pain, Neck Pain, Neck Mass, Other - Cardiovascular Cardiovascular: absent: As Per HPI, Acrocyanosis, Chest Pain, Chest Pain at Rest, Chest Pain with Activity, Claudication, Diaphoresis, Dyspnea, Dyspnea on Exertion, Edema, Irregular Heart Rhythm, Pain Radiating to Arm/Neck/Jaw, Leg Edema, Leg Ulcers, Lightheadedness, Orthopnea, Palpitations, Paroxysmal Nocturnal Dyspnea, Pedal Edema, Radiating Pain, Rapid Heart Rate, Slow Heart Rate, Syncope, Other - Respiratory Respiratory: absent: As Per HPI, Cough, Dyspnea, Hemoptysis, Dyspnea on Exertion, Wheezing, Snoring, Stridor, Pain on Inspiration, Chest Congestion, Excessive Mucous Production, Change in Mucous Color, Pain with Coughing, Other - Gastrointestinal Gastrointestinal: Abdominal Pain, Bloating, Diarrhea - Genitourinary Genitourinary: Change in Urinary Stream - Musculoskeletal Musculoskeletal: Limited Range of Motion, Muscle Weakness, Radiating Pain into Limb - Integumentary Integumentary: Change in Pigmentation, Dry Skin - Neurological Neurological: absent: As Per HPI, Abnormal Gait, Abnormal Hearing, Abnormal Movements, Abnormal Speech, Behavioral Changes, Burning Sensations, Confusion, Convulsions, Disequilibrium, Dizziness, Numbness, Focal Weakness, Frequent Falls, Headaches, Lack of Coordination, Loss of Vision, Memory Loss, Paresthesias, Radicular Pain, Restless Legs, Sensory Deficit, Syncope, Tingling, Tremor, Vertigo, Weakness, Other Visual Disturbances, Other - Psychiatric Psychiatric: absent: As Per HPI, Abnormal Sleep Pattern, Anhedonia, Anxiety, Auditory Hallucinations, Behavioral Changes, Change in Appetite, Change in Libido, Confusion, Depression, Difficulty Concentrating, Hallucinations, Homicidal Ideation, Hopelessness, Irritability, Memory Loss, Mood Swings, Panic Attacks, Paranoia, Suicidal Ideation, Visual Hallucinations, Tactile Hallucinations, Other - Endocrine Endocrine: Change in Body Appearance - Hematologic/Lymphatic Hematologic: Easy Bleeding Past Patient History - Infectious Disease Hx of Infectious Diseases: None - Tetanus Immunizations Tetanus Immunization: Unknown - Past Medical History & Family History Past Medical History?: Yes - Past Social History Smoking Status: Former Smoker Alcohol: Other Drugs: Denies, Inhalants Home Situation {Lives}: With Family - CARDIAC Hx Congestive Heart Failure: Yes Hx Hypertension: Yes - PULMONARY Hx Respiratory Disorders: No - NEUROLOGICAL Hx Neurological Disorder: No - HEENT Hx HEENT Problems: No - RENAL Hx Chronic Kidney Disease: No - ENDOCRINE/METABOLIC Hx Endocrine Disorders: No - HEMATOLOGICAL/ONCOLOGICAL Hx Blood Disorders: Yes Hx Cancer: Yes (PROSTATE) Hx Chemotherapy: Yes - INTEGUMENTARY Hx Dermatological Problems: No - MUSCULOSKELETAL/RHEUMATOLOGICAL Hx Arthritis: Yes (KNEE) - GASTROINTESTINAL Hx Gall Bladder Disease: Yes Hx Gastritis: Yes - GENITOURINARY/GYNECOLOGICAL Hx Genitourinary Disorders: No - PSYCHIATRIC Hx Substance Use: No - SURGICAL HISTORY Hx Surgeries: Yes Other/Comment: hernia repair 03/20/17 - ANESTHESIA Hx Anesthesia: Yes Hx Anesthesia Reactions: No Hx Malignant Hyperthermia: No Meds Allergies/Adverse Reactions: Allergies Allergy/AdvReac Type Severity Reaction Status Date / Time No Known Allergies Allergy Verified 12/21/18 02:37 - Medications Medications: Current Medications Amiodarone HCl (Cordarone) 200 mg PO DAILY [facility] Last Admin: 12/21/18 13:26 Dose: Not Given Dextrose (Dextrose 50% Inj) 0 ml IV STAT PRN; Protocol PRN Reason: Hypoglycemia Protocol Dextrose (Glutose 15) 0 gm PO ONCE PRN; Protocol PRN Reason: Hypoglycemia Protocol Famotidine (Pepcid) 20 mg IVP DAILY [facility] Last Admin: 12/21/18 10:36 Dose: Not Given Glucagon (Glucagen Diagnostic Kit) 0 mg IM STAT PRN; Protocol PRN Reason: Hypoglycemia Protocol Home Med (Abiraterone Acetate [Zytiga]) 250 mg PO DAILY [facility] Home Med (Bicalutamide [Casodex]) 50 mg PO DAILY [facility] Phenylephrine HCl 30 mg/ (Dextrose) 253 mls @ 20.24 mls/hr IV .[id number] PRN; Protocol PRN Reason: TITRATE PER MD ORDER Last Titration: 12/21/18 09:45 Dose: 60 mcg/min, 30.36 mls/hr Levothyroxine Sodium (Synthroid) 50 mcg PO DAILY@0630 [facility] Prednisone (Prednisone Tab) 5 mg PO BID [facility] Rosuvastatin Calcium (Crestor) 5 mg PO HS [facility] Tamsulosin HCl (Flomax) 0.4 mg PO DAILY [facility] Last Admin: 12/21/18 10:58 Dose: 0.4 mg Physical Exam - Constitutional Appears: No Acute Distress, Chronically Ill - Head Exam Head Exam: ATRAUMATIC, NORMAL INSPECTION, NORMOCEPHALIC - Eye Exam Eye Exam: EOMI, Normal appearance, PERRL Pupil Exam: NORMAL ACCOMODATION, PERRL - ENT Exam ENT Exam: Mucous Membranes Dry Additional comments: many missing teeth - Neck Exam Neck exam: Positive for: Normal Inspection - Respiratory Exam Respiratory Exam: Decreased Breath Sounds, NORMAL BREATHING PATTERN - Cardiovascular Exam Cardiovascular Exam: Tachycardia, Irregular Rhythm - GI/Abdominal Exam GI & Abdominal Exam: Diminished Bowel Sounds, Distended, Firm - Rectal Exam Rectal Exam: Deferred - Extremities Exam Extremities exam: Positive for: pedal edema, tenderness, pedal pulses present - Back Exam Back exam: NORMAL INSPECTION - Neurological Exam Neurological exam: Abnormal Gait, Alert, Oriented x3 - Psychiatric Exam Psychiatric exam: Normal Affect, Normal Mood - Skin Skin Exam: Dry, Intact, Warm Results - Vital Signs Recent Vital Signs: Last Vital Signs Temp 97.5 F L 12/21/18 13:15 Pulse 112 H 12/21/18 09:41 Resp 28 H 12/21/18 09:41 BP 73/46 L 12/21/18 09:41 Pulse Ox 95 12/21/18 08:50 - Labs Result Diagrams: 12/21/18 12:23 12/21/18 03:11 Labs: Laboratory Results - last 24 hr 12/21/18 12/21/18 12/21/18 03:11 03:11 04:56 WBC 5.5 D RBC 2.28 L Hgb 7.6 L D Hct 22.9 L MCV 100.8 H D MCH 33.4 H MCHC 33.1 RDW 20.7 H Plt Count 72 L D MPV 9.8 Neut % (Auto) 87.3 H Lymph % (Auto) 3.9 L [place] % (Auto) 7.7 Eos % (Auto) 0.5 Baso % (Auto) 0.6 Neut # (Auto) 4.8 Lymph # (Auto) 0.2 L [place] # (Auto) 0.4 Eos # (Auto) 0.0 Baso # (Auto) 0.0 Neutrophils % (Manual) 84 H Band Neutrophils % 2 Lymphocytes % (Manual) 6 L Reactive Lymphs % Monocytes % (Manual) 8 Myelocytes % Platelet Estimate Slightly decreased L Hypochromasia (manual) Poikilocytosis (manual Anisocytosis (manual) Tear Drop Cells Ovalocytes [place] Cells PT INR APTT Puncture Site pCO2 pO2 HCO3 ABG pH ABG Total CO2 ABG O2 Saturation ABG Base Excess ABG Hemoglobin ABG Carboxyhemoglobin POC ABG HHb (Measured) ABG Methemoglobin Gregory Test Hgb O2 Saturation Liter Flow Crit Value Called To Crit Value Called By Crit Value Read Back Blood Gas Notified Time Sodium 140 Potassium 4.9 Chloride 109 H Carbon Dioxide 15 L Anion Gap 21 H BUN 74 H Creatinine 5.5 H Est GFR ( Amer) 12 Est GFR (Non-Af Amer) 10 POC Glucose (mg/dL) Random Glucose 62 L D Lactic Acid 2.7 H Calcium 8.3 L Phosphorus 3.6 Magnesium 2.4 H Total Bilirubin 5.0 H AST 76 H D ALT 15 L D Alkaline Phosphatase 469 H D Ammonia Total Creatine Kinase Troponin I NT-Pro-B Natriuret Pep Total Protein 5.7 L Albumin 3.2 L D Globulin 2.5 Albumin/Globulin Ratio 1.3 Free T4 TSH 3rd Generation C. difficile Ag & Toxin Blood Type Antibody Screen 12/21/18 12/21/18 12/21/18 06:55 06:55 06:59 WBC RBC Hgb Hct MCV MCH MCHC RDW Plt Count MPV Neut % (Auto) Lymph % (Auto) [place] % (Auto) Eos % (Auto) Baso % (Auto) Neut # (Auto) Lymph # (Auto) [place] # (Auto) Eos # (Auto) Baso # (Auto) Neutrophils % (Manual) Band Neutrophils % Lymphocytes % (Manual) Reactive Lymphs % Monocytes % (Manual) Myelocytes % Platelet Estimate Hypochromasia (manual) Poikilocytosis (manual Anisocytosis (manual) Tear Drop Cells Ovalocytes Keira Cells PT 24.0 H INR 2.2 APTT 34 Puncture Site pCO2 pO2 HCO3 ABG pH ABG Total CO2 ABG O2 Saturation ABG Base Excess ABG Hemoglobin ABG Carboxyhemoglobin POC ABG HHb (Measured) ABG Methemoglobin Gregory Test Hgb O2 Saturation Liter Flow Crit Value Called To Crit Value Called By Crit Value Read Back Blood Gas Notified Time Sodium Potassium Chloride Carbon Dioxide Anion Gap BUN Creatinine Est GFR ( Amer) Est GFR (Non-Af Amer) POC Glucose (mg/dL) Random Glucose Lactic Acid Calcium Phosphorus Magnesium Total Bilirubin AST ALT Alkaline Phosphatase Ammonia 30 Total Creatine Kinase 628 H Troponin I 0.3950 H* NT-Pro-B Natriuret Pep Total Protein Albumin Globulin Albumin/Globulin Ratio Free T4 TSH 3rd Generation C. difficile Ag & Toxin Blood Type Antibody Screen 12/21/18 12/21/18 12/21/18 07:00 08:51 08:51 WBC RBC Hgb Hct MCV MCH MCHC RDW Plt Count MPV Neut % (Auto) Lymph % (Auto) [place] % (Auto) Eos % (Auto) Baso % (Auto) Neut # (Auto) Lymph # (Auto) [place] # (Auto) Eos # (Auto) Baso # (Auto) Neutrophils % (Manual) Band Neutrophils % Lymphocytes % (Manual) Reactive Lymphs % Monocytes % (Manual) Myelocytes % Platelet Estimate Hypochromasia (manual) Poikilocytosis (manual Anisocytosis (manual) Tear Drop Cells Ovalocytes Keira Cells PT INR APTT Puncture Site pCO2 pO2 HCO3 ABG pH ABG Total CO2 ABG O2 Saturation ABG Base Excess ABG Hemoglobin ABG Carboxyhemoglobin POC ABG HHb (Measured) ABG Methemoglobin Gregory Test Hgb O2 Saturation Liter Flow Crit Value Called To Crit Value Called By Crit Value Read Back Blood Gas Notified Time Sodium Potassium Chloride Carbon Dioxide Anion Gap BUN Creatinine Est GFR ( Amer) Est GFR (Non-Af Amer) POC Glucose (mg/dL) 52 L Random Glucose Lactic Acid 2.6 H Calcium Phosphorus Magnesium Total Bilirubin AST ALT Alkaline Phosphatase Ammonia Total Creatine Kinase Troponin I NT-Pro-B Natriuret Pep Total Protein Albumin Globulin Albumin/Globulin Ratio Free T4 TSH 3rd Generation C. difficile Ag & Toxin Blood Type A POSITIVE Antibody Screen Negative 12/21/18 12/21/18 12/21/18 08:51 09:41 12:23 WBC 5.2 RBC 2.25 L Hgb 7.6 L Hct 22.8 L MCV 101.3 H MCH 33.8 H MCHC 33.4 RDW 21.0 H Plt Count 110 L D MPV 10.9 Neut % (Auto) 86.6 H Lymph % (Auto) 3.4 L [place] % (Auto) 8.7 Eos % (Auto) 0.5 Baso % (Auto) 0.8 Neut # (Auto) 4.5 Lymph # (Auto) 0.2 L [place] # (Auto) 0.5 Eos # (Auto) 0.0 Baso # (Auto) 0.0 Neutrophils % (Manual) 73 Band Neutrophils % 13 H* Lymphocytes % (Manual) 6 L Reactive Lymphs % 1 H Monocytes % (Manual) 6 Myelocytes % 1 H Platelet Estimate Slightly decreased L Hypochromasia (manual) Slight Poikilocytosis (manual Slight Anisocytosis (manual) Slight Tear Drop Cells Slight Ovalocytes Slight [place] Cells Moderate PT INR APTT Puncture Site pCO2 pO2 HCO3 ABG pH ABG Total CO2 ABG O2 Saturation ABG Base Excess ABG Hemoglobin ABG Carboxyhemoglobin POC ABG HHb (Measured) ABG Methemoglobin Gregory Test Hgb O2 Saturation Liter Flow Crit Value Called To Crit Value Called By Crit Value Read Back Blood Gas Notified Time Sodium Potassium Chloride Carbon Dioxide Anion Gap BUN Creatinine Est GFR ( Amer) Est GFR (Non-Af Amer) POC Glucose (mg/dL) Random Glucose Lactic Acid Calcium Phosphorus Magnesium Total Bilirubin AST ALT Alkaline Phosphatase Ammonia Total Creatine Kinase Troponin I 0.3570 H* NT-Pro-B Natriuret Pep Total Protein Albumin Globulin Albumin/Globulin Ratio Free T4 TSH 3rd Generation C. difficile Ag & Toxin Negative Blood Type Antibody Screen 12/21/18 12/21/18 12/21/18 12:23 12:23 12:55 WBC RBC Hgb Hct MCV MCH MCHC RDW Plt Count MPV Neut % (Auto) Lymph % (Auto) [place] % (Auto) Eos % (Auto) Baso % (Auto) Neut # (Auto) Lymph # (Auto) [place] # (Auto) Eos # (Auto) Baso # (Auto) Neutrophils % (Manual) Band Neutrophils % Lymphocytes % (Manual) Reactive Lymphs % Monocytes % (Manual) Myelocytes % Platelet Estimate Hypochromasia (manual) Poikilocytosis (manual Anisocytosis (manual) Tear Drop Cells Ovalocytes Keira Cells PT INR APTT Puncture Site Lb pCO2 24 L pO2 92 HCO3 15.6 L ABG pH 7.33 L ABG Total CO2 13.4 L ABG O2 Saturation 99.1 H ABG Base Excess -12.0 L ABG Hemoglobin 7.5 L ABG Carboxyhemoglobin 2.0 H POC ABG HHb (Measured) 0.9 ABG Methemoglobin 1.1 Gregory Test Na Hgb O2 Saturation 96.0 Liter Flow 3.0 Crit Value Called To Dr mcguire Crit Value Called By Ta [place] windshield technician Crit Value Read Back Y Blood Gas Notified Time 1258 Sodium Potassium Chloride Carbon Dioxide Anion Gap BUN Creatinine Est GFR ( Amer) Est GFR (Non-Af Amer) POC Glucose (mg/dL) Random Glucose Lactic Acid Calcium Phosphorus Magnesium Total Bilirubin AST ALT Alkaline Phosphatase Ammonia Total Creatine Kinase Troponin I NT-Pro-B Natriuret Pep 37694 H Total Protein Albumin Globulin Albumin/Globulin Ratio Free T4 0.92 TSH 3rd Generation 39.20 H C. difficile Ag & Toxin Blood Type Antibody Screen Assessment & Plan - Assessment and Plan (Free Text) Assessment: Palliative consult There is no Advance Directive on chart, PPS 20% I reviewed Medical records, all diagnostic studies, examined and interviewed patient in the bed. Patient is lethargic, easily aroused, answers questions appropriately, difficulties concentrating, falls a sleep in the middle of sentence. Breath sounds diminished, denies dyspnea at rest, reports dyspnea on excertion due to distended abdomen. HR 112, irregular rhythm, denies chest pain, BP 73/46, on pressor for BP support. Abdomen largely distended, hard to touch, diminished bowel sounds, reports poor appetite and food intolerance. Uses urinal, small amount of very concentrated urine noted in urinal. Limited ROM to LEs, due to pain. Both legs are with severe discoloration, there is no skin ulcer Pain, reports pain to right groin. Unable to describe pain, just stat is uncomfortable. BUN 74, Clinical Training Coordinator 5.5, TRPI elevated X2, BNP [id number] I discussed with patient his condition and elicited his knowledge and understanding of it. Patient said : I think I have bone cancer, my legs are so painful". I corrected him and explained that his liver was not working well and most of his symptoms were coming from there. I evaluated his impression of how his health was since 2 months ago. patient admitted feeling more sick and weak and that his pain meds were " no good for me anymore'. Patient was not able to explain how and why and did he took extra pain meds. When questioned what he thinks will happen to him, patient referred to God for answer. I called patient's trying to schedule meeting with her, but she did not answer the phone. ICU said she was not there either. Impression * Chronically ill male with generalized weakness * Liver cirrhosis * Abdominal distention 2nd to ascites * Hypotension * Dehydration * Lethargy * Unable to participate in decision making process due to lethargy * Limited life expectancy * Suggestion * Maintain bed rest and safety precautions * Paracentesis when medically stable * Consider Pleur Ex cath before discharge * BP support * Comfort care would be appropriate care for this dying patient * Patient should be made DNR/DNi as these aggressive interventions will not bring about improvement in quality of life I will continue looking for the and finalize goals of care discussion Advance care discussion 30 min
[2018-12-21] MEDS: Levothyroxine 50 MCG TAB PO SCH (14:23)
[2018-12-21 15:05] LABS: OSMOLALITY,URINE 316 mosm/kg (300-1000)
[2018-12-21 15:07] LABS: URINE BACTERIA MOD (<OCC); URINE BILIRUBIN NEGATIVE (NEGATIVE); URINE BLOOD 2+ (NEGATIVE); URINE CLARITY Turbid (Clear); URINE COLOR Yellow (YELLOW); URINE GLUCOSE (UA) NORMAL (Normal); URINE LEUKOCYTE ESTERASE 3+ Leu/uL (Negative); URINE PROTEIN 2+ mg/dL (NEGATIVE); URINE UROBILINOGEN NORMAL mg/dL (0.2-1.0); WBC CLUMPS MANY /hpf
[2018-12-21 15:34] LABS: CREATININE, RANDOM URINE 71.6 mg/dL
[2018-12-21 15:35] LABS: BENZODIAZEPINES, UR NEGATIVE (NEGATIVE); OPIATES, UR NEGATIVE (NEGATIVE); PHENCYCLIDINE, UR NEGATIVE (NEGATIVE)
--- NOTE | 2018-12-21 15:55 | CP.PCM.PN ---
"<Farida Weller - Last Filed: 12/21/18 17:51> Subjective - Date & Time of Evaluation Date of Evaluation: 12/21/18 Time of Evaluation: 15:48 - Subjective Subjective: Cardiology Consult for service CC: opiate overdose Patient very lethargic during interview. Answering questions tangentially and in appropriately multiple times. Stated he came in because his leg was hurting but does not know why he is admitted to hospital. Limited history due to patient clinical status currently. HPI collected mostly from ED documentation and chart review. HPI: This is a 78 years old male with hx of liver cirrhosis with multiple Paracentesis, Arthritis for which he takes Morphine and Oxycodone, CHF and Prostate Cancer. He was found lethargic by at home with pills around him. The EMS found him lethargic, pupils pin pointed and hypotensive in the 80s. He responded to Narcan and was arousable on arrival at ED . No complains abdominal pain and diarrhea for 2 days with pain to the right ankle. The denied seizure activity, fever, vomiting or SOB. Cardiology team was consulted on this patient for SOB and anemia. ROS difficult to obtain but he did deny SOB,palpitations, or chest pain. He also stated he did not want a life jacket nor a pacemaker when it was mentioned. He stated he was told he may need one in the past but refused. PMH: Arthritis (KNEE), CAD, CHF, Gastritis, Gall Bladder Disease, HTN, Prostate Ca stage IV; Liver Cirrhosis; Hypothyroidism; Umbilical hernia; A Fib; PSH: Inguinal hernia repair 2016; Paracentesis last 10/09/18 SH: Former Smoker; Former Alcohol abuser Quit 1977; No illegal drug use; Live with ; FH: No known family Hx Allergies: NKDA Medication: Reviewed Objective - Vital Signs/Intake and Output Vital Signs (last 24 hours): Temp Pulse Resp BP Pulse Ox 97.5 F L 110 H 27 H 84/58 L 95 12/21/18 14:12 12/21/18 15:05 12/21/18 15:05 12/21/18 15:05 12/21/18 15:05 Intake and Output: 12/21/18 12/21/18 06:59 18:59 Intake Total 1773 Output Total 1 Balance 1772 - Medications Medications: Current Medications Amiodarone HCl (Cordarone) 200 mg PO DAILY [facility] Last Admin: 12/21/18 13:26 Dose: Not Given Dextrose (Dextrose 50% Inj) 0 ml IV STAT PRN; Protocol PRN Reason: Hypoglycemia Protocol Dextrose (Glutose 15) 0 gm PO ONCE PRN; Protocol PRN Reason: Hypoglycemia Protocol Famotidine (Pepcid) 20 mg IVP DAILY [facility] Last Admin: 12/21/18 10:36 Dose: Not Given Glucagon (Glucagen Diagnostic Kit) 0 mg IM STAT PRN; Protocol PRN Reason: Hypoglycemia Protocol Home Med (Abiraterone Acetate [Zytiga]) 250 mg PO DAILY [facility] Home Med (Bicalutamide [Casodex]) 50 mg PO DAILY [facility] Phenylephrine HCl 30 mg/ (Dextrose) 253 mls @ 20.24 mls/hr IV .[id number] PRN; Protocol PRN Reason: TITRATE PER MD ORDER Last Titration: 12/21/18 15:06 Dose: 70 mcg/min, 35.42 mls/hr Levothyroxine Sodium (Synthroid) 50 mcg PO DAILY@0630 [facility] Last Admin: 12/21/18 14:23 Dose: Not Given Prednisone (Prednisone Tab) 5 mg PO BID [facility] Last Admin: 12/21/18 14:24 Dose: Not Given Rosuvastatin Calcium (Crestor) 5 mg PO [facility] Tamsulosin HCl (Flomax) 0.4 mg PO DAILY [facility] Last Admin: 12/21/18 10:58 Dose: 0.4 mg - Labs Labs: 12/21/18 12:23 12/21/18 03:11 PT 24.0 SECONDS (9.7-12.2) H 12/21/18 06:59 INR 2.2 12/21/18 06:59 APTT 34 SECONDS (21-34) 12/21/18 06:59 - Additional Findings Additional findings: - Constitutional Appears: Chronically Ill - Head Exam Head Exam: NORMAL INSPECTION, NORMOCEPHALIC - Eye Exam Eye Exam: EOMI. absent: Normal appearance, Nystagmus, Scleral icterus - ENT Exam ENT Exam: Mucous Membranes Dry - Respiratory Exam Respiratory Exam: Clear to Auscultation Bilateral, NORMAL BREATHING PATTERN - Cardiovascular Exam Cardiovascular Exam: REGULAR RHYTHM, +S1, +S2 - GI/Abdominal Exam GI & Abdominal Exam: Normal Bowel Sounds, Soft. absent: Tenderness - Extremities Exam Extremities exam: Positive for: normal inspection - Neurological Exam Neurological exam: Alert - Psychiatric Exam Psychiatric exam: Normal Affect, Normal Mood - Skin Skin Exam: Dry, Intact, Normal Color Assessment and Plan - Assessment and Plan (Free Text) Assessment: 78 years old male with Arthritis (KNEE), CAD, CHF, Gastritis, Gall Bladder Disease, HTN, Prostate Ca stage IV; Liver Cirrhosis; Hypothyroidism; Umbilical hernia; A Fib who presents due to opiate overdose. Cardiology consulted for SOB, anemia, and CHF Hx Plan: A-Fib | HFrEF| SOB | HTN | CAD| NSTEMI | Macrocytic Anemia ECHO (09/2018): Severe LV systolic dysfunction, Dilated LA and LV, Mild to moderate AR, Mild to moderate MR. Troponins 0.3950-->0.3570--->PENDING | BNP elevated at 69,400 | TSH elevated Mgmt: Correct any Electrolyte abnormalities Consider increased Synthroid. Although increased TSH could be subclinical Hold Amiodarone 200mg po Daily due Hypotension. Patient currently on Pressors Elevated Troponin likely due to Renal Failure. Repeat. Hold Home Lasix 20mg PO daily ECHO Life Jacket Stool Occult Blood Consider Psychiatry consult. 1:1? Strict I/O's Repeat EKG Repeat Troponin Transfuse PRN. 2gm Salt Diet with 2000L Fluid Restriction (Hold until patient is more stable) Anemia Workup Will discuss with Dr. Maxim Weller, PGY-2 <Romulo Pan - Last Filed: 12/22/18 21:50> Objective - Vital Signs/Intake and Output Vital Signs (last 24 hours): Temp Pulse Resp BP Pulse Ox 97.6 F 106 H 15 103/49 L 96 12/22/18 16:00 12/22/18 21:44 12/22/18 21:44 12/22/18 21:44 12/22/18 21:44 Intake and Output: 12/22/18 12/23/18 18:59 06:59 Intake Total 2245.6 9 Output Total 50 Balance 2195.6 9 - Medications Medications: Current Medications Aspirin (Aspirin Chewable) 81 mg PO DAILY [facility] Last Admin: 12/22/18 10:33 Dose: 81 mg Dextrose (Dextrose 50% Inj) 0 ml IV STAT PRN; Protocol PRN Reason: Hypoglycemia Protocol Dextrose (Glutose 15) 0 gm PO ONCE PRN; Protocol PRN Reason: Hypoglycemia Protocol Glucagon (Glucagen Diagnostic Kit) 0 mg IM STAT PRN; Protocol PRN Reason: Hypoglycemia Protocol Heparin Sodium (Porcine) (Heparin) 5,000 units SC Q8 [facility] Last Admin: 12/22/18 21:24 Dose: 5,000 units Home Med (Patient's Own Medication) 1 tab PO DAILY [facility] Hydrocortisone Sodium Succinate (Solu-Cortef) 100 mg IV Q8H [facility] Last Admin: 12/22/18 19:04 Dose: 100 mg Cefepime HCl (Maxipime Iv 1 Gm Premix) 1 gm in 50 mls @ 100 mls/hr IVPB Q24H [facility]; Protocol Last Admin: 12/22/18 19:04 Dose: 100 mls/hr Vasopressin 40 units/ Dextrose 42 mls @ 0.63 mls/hr IV .Q24H [facility]; Protocol Last Admin: 12/22/18 21:44 Dose: 0.01 units/min, 1.2 mls/hr Dopamine HCl/Dextrose (Dopamine 400mg/250ml D5w) 400 mg in 250 mls @ 17.929 mls /hr IV .[id number] PRN; Protocol PRN Reason: TITRATE PER MD ORDER Last Titration: 12/22/18 16:59 Dose: 5 mcg/kg/min, 12.806 mls/hr Levothyroxine Sodium (Synthroid) 50 mcg PO DAILY@0630 [facility] Last Admin: 12/22/18 06:30 Dose: Not Given Pantoprazole Sodium (Protonix Inj) 40 mg IVP Q12H [facility] Last Admin: 12/22/18 20:54 Dose: 40 mg Rosuvastatin Calcium (Crestor) 5 mg PO HS [facility] Last Admin: 12/22/18 21:25 Dose: 5 mg Sodium Bicarbonate (Sodium Bicarbonate Tab) 1,300 mg PO Q6 [facility] Last Admin: 12/22/18 19:04 Dose: 1,300 mg Sodium Bicarbonate (Sodium Bicarbonate 8.4% (50 Meq) Vial) 50 meq IVP Q4H [facility] Last Admin: 12/22/18 20:46 Dose: 50 meq Tamsulosin HCl (Flomax) 0.4 mg PO DAILY [facility] Last Admin: 12/22/18 10:33 Dose: 0.4 mg - Labs Labs: 12/22/18 04:56 12/22/18 05:34 PT 24.0 SECONDS (9.7-12.2) H 12/21/18 06:59 INR 2.2 12/21/18 06:59 APTT 34 SECONDS (21-34) 12/21/18 06:59 Assessment and Plan - Assessment and Plan (Free Text) Plan: Patient seen an evaluated personally by me. Plan of care d/w the resident and as documented [facility] eval as out patient"
[2018-12-21 15:57] LABS: BARBITURATES, UR NEGATIVE (NEGATIVE)
[2018-12-21 16:04] LABS: FREE T4 0.97 ng/dL (0.78-2.19)
[2018-12-21 16:17] LABS: CK-MB 2.65 ng/mL (0.0-3.38); TROPONIN I 0.276 ng/mL (0.00-0.120)
[2018-12-21] MEDS ORDERED: Sodium Chloride 0.9% 1,000 ML IV SCH (16:45)
[2018-12-21] MEDS ORDERED: Naloxone HCl 2mg/2ml syr IVP ONE (16:48)
--- NOTE | 2018-12-21 16:53 | PCM.PROC ---
Procedures Attestation:: I certify that I have explained the specified Operation(s) or Procedure(s), risks, benefits and reasonable alternatives to the Patient and/or other person responsible. The opportunity was given to ask questions and all questions answered - Central Line Placement Right Femoral Aseptic technique was employed throughout the procedure: Hand Hygiene done prior to procedure, Full sterile barriers (mask, hair cover, sterile gown, sterile gloves), Full body sterile drape, Chloraprep Antiseptic: 2 minute prep for Femoral CVP Time Out Performed: Yes Pt. Placed on Pulse Ox Monitor: Yes Central Line Prep: Chlorhexidine-Alcohol Combination Local Anesthesia Used: Lidocaine 2% Ultrasound Used for Placement: No Central Line Lumen Inserted: double Central Line Length: 20 cm Post Procedure: Sutured in Place, Good Blood Return, All Ports Aspirated, Flushed, Capped, Sterile Dressing Applied Secured by: Securement device Post procedure dressing: Clear vapor permeable, Chlorhexidine disc (Biopatch) Post Procedure X-Ray: No Patient Tolerated Procedure: Well, No Complications Immediate Complications: None
[2018-12-21 17:38] LABS: ALB/GLOB RATIO 1.2 (1.0-2.1); ALBUMIN 2.9 g/dL (3.5-5.0); ALT/SGPT < 6 U/L (21-72); AST/SGOT 90 U/L (17-59); BLOOD UREA NITROGEN 70 mg/dL (9-20); CALCIUM 7.5 mg/dl (8.6-10.4); GFR NON-AFRICAN AMERICAN 12; URIC ACID 8.1 mg/dL (3.5-8.5)
--- NOTE | 2018-12-21 17:39 | CP.PCM.CON ---
History of Present Illness - History of Present Illness History of Present Illness: 78 yo male admitted from home after his found him down at home with pain meds nearby Given narcan with mild improvement in mental status Now in ICU with hypotension elevated troponins and multiorgan failure ID consulted for possible sepsis and UTI IV antibiotics ordered empirically pending cultures PMH: liver cirrhosis, ascites, prostate CA stage IV, CHF, CAD Soc. Hx: lives at home with , former smoker, former ETOH abuse Fam. Hx: unknown Review of Systems - Constitutional Constitutional: Daytime Sleepiness, Malaise, Weakness - EENT Eyes: absent: As Per HPI, Blind Spots, Blurred Vision, Change in Vision, Decreased Night Vision, Diplopia, Discharge, Dry Eye, Exophthalmos, Floaters, Irritation, Itchy Eyes, Loss of Peripheral Vision, Pain, Photophobia, Requires Corrective Lenses, Sees Flashes, Spots in Vision, Tunnel Vision, Other Visual Disturbances, Loss of Vision, Other Ears: absent: As Per HPI, Decreased Hearing, Ear Discharge, Ear Pain, Tinnitus, Abnormal Hearing, Disequilibrium, Dizziness, Other Nose/Mouth/Throat: absent: As Per HPI, Epistaxis, Nasal Congestion, Nasal Discharge, Nasal Obstruction, Nasal Trauma, Nose Pain, Post Nasal Drip, Sinus Pain, Sinus Pressure, Bleeding Gums, Change in Voice, Dental Pain, Dry Mouth, Dysphagia, Halitosis, Hoarsness, Lip Swelling, Mouth Lesions, Mouth Pain, Odynophagia, Sore Throat, Throat Swelling, Tongue Swelling, Facial Pain, Neck Pain, Neck Mass, Other - Cardiovascular Cardiovascular: absent: As Per HPI, Acrocyanosis, Chest Pain, Chest Pain at Rest, Chest Pain with Activity, Claudication, Diaphoresis, Dyspnea, Dyspnea on Exertion, Edema, Irregular Heart Rhythm, Pain Radiating to Arm/Neck/Jaw, Leg Edema, Leg Ulcers, Lightheadedness, Orthopnea, Palpitations, Paroxysmal Nocturnal Dyspnea, Pedal Edema, Radiating Pain, Rapid Heart Rate, Slow Heart Rate, Syncope, Other - Respiratory Respiratory: absent: As Per HPI, Cough, Dyspnea, Hemoptysis, Dyspnea on Exertion, Wheezing, Snoring, Stridor, Pain on Inspiration, Chest Congestion, Excessive Mucous Production, Change in Mucous Color, Pain with Coughing, Other - Gastrointestinal Gastrointestinal: Abdominal Pain, Bloating, Diarrhea - Genitourinary Genitourinary: Change in Urinary Stream - Musculoskeletal Musculoskeletal: Limited Range of Motion, Muscle Weakness, Radiating Pain into Limb - Integumentary Integumentary: Change in Pigmentation, Dry Skin - Neurological Neurological: absent: As Per HPI, Abnormal Gait, Abnormal Hearing, Abnormal Movements, Abnormal Speech, Behavioral Changes, Burning Sensations, Confusion, Convulsions, Disequilibrium, Dizziness, Numbness, Focal Weakness, Frequent Falls, Headaches, Lack of Coordination, Loss of Vision, Memory Loss, Paresthesias, Radicular Pain, Restless Legs, Sensory Deficit, Syncope, Tingling, Tremor, Vertigo, Weakness, Other Visual Disturbances, Other - Psychiatric Psychiatric: absent: As Per HPI, Abnormal Sleep Pattern, Anhedonia, Anxiety, Auditory Hallucinations, Behavioral Changes, Change in Appetite, Change in Libido, Confusion, Depression, Difficulty Concentrating, Hallucinations, Homicidal Ideation, Hopelessness, Irritability, Memory Loss, Mood Swings, Panic Attacks, Paranoia, Suicidal Ideation, Visual Hallucinations, Tactile Hallucinations, Other - Endocrine Endocrine: Change in Body Appearance - Hematologic/Lymphatic Hematologic: Easy Bleeding Past Patient History - Infectious Disease Hx of Infectious Diseases: None - Tetanus Immunizations Tetanus Immunization: Unknown - Past Medical History & Family History Past Medical History?: Yes - Past Social History Smoking Status: Former Smoker Alcohol: Other Drugs: Denies, Inhalants Home Situation {Lives}: With Family - CARDIAC Hx Hypertension: Yes - PULMONARY Hx Respiratory Disorders: No - NEUROLOGICAL Hx Neurological Disorder: No - HEENT Hx HEENT Problems: No - RENAL Hx Renal Failure: Yes - ENDOCRINE/METABOLIC Hx Endocrine Disorders: No - HEMATOLOGICAL/ONCOLOGICAL Hx Cancer: Yes (stage 4 prostate) - INTEGUMENTARY Hx Dermatological Problems: No - MUSCULOSKELETAL/RHEUMATOLOGICAL Hx Arthritis: Yes - GASTROINTESTINAL Hx Gall Bladder Disease: Yes Hx Gastritis: Yes - GENITOURINARY/GYNECOLOGICAL Hx Genitourinary Disorders: No - PSYCHIATRIC Hx Substance Use: No - SURGICAL HISTORY Hx Surgeries: Yes Other/Comment: hernia repair 03/20/17 - ANESTHESIA Hx Anesthesia: Yes Hx Anesthesia Reactions: No Hx Malignant Hyperthermia: No Meds Allergies/Adverse Reactions: Allergies Allergy/AdvReac Type Severity Reaction Status Date / Time No Known Allergies Allergy Verified 12/21/18 02:37 - Medications Medications: Current Medications Amiodarone HCl (Cordarone) 200 mg PO DAILY JOSÉ MIGUEL Last Admin: 12/21/18 13:26 Dose: Not Given Dextrose (Dextrose 50% Inj) 0 ml IV STAT PRN; Protocol PRN Reason: Hypoglycemia Protocol Dextrose (Glutose 15) 0 gm PO ONCE PRN; Protocol PRN Reason: Hypoglycemia Protocol Famotidine (Pepcid) 20 mg IVP DAILY [facility] Last Admin: 12/21/18 10:36 Dose: Not Given Glucagon (Glucagen Diagnostic Kit) 0 mg IM STAT PRN; Protocol PRN Reason: Hypoglycemia Protocol Home Med (Abiraterone Acetate [Zytiga]) 250 mg PO DAILY [facility] Home Med (Bicalutamide [Casodex]) 50 mg PO DAILY [facility] Phenylephrine HCl 30 mg/ (Dextrose) 253 mls @ 20.24 mls/hr IV .[id number] PRN; Protocol PRN Reason: TITRATE PER MD ORDER Last Titration: 12/21/18 15:06 Dose: 70 mcg/min, 35.42 mls/hr Sodium Chloride (Sodium Chloride 0.9%) 1,000 mls @ 80 mls/hr IV .[id number] [facility] Levothyroxine Sodium (Synthroid) 50 mcg PO DAILY@0630 [facility] Last Admin: 12/21/18 14:23 Dose: Not Given Prednisone (Prednisone Tab) 5 mg PO BID [facility] Last Admin: 12/21/18 14:24 Dose: Not Given Rosuvastatin Calcium (Crestor) 5 mg PO [facility] Tamsulosin HCl (Flomax) 0.4 mg PO DAILY [facility] Last Admin: 12/21/18 10:58 Dose: 0.4 mg Physical Exam - Constitutional Appears: No Acute Distress, Confused, Chronically Ill - Head Exam Head Exam: ATRAUMATIC, NORMAL INSPECTION, NORMOCEPHALIC - Eye Exam Eye Exam: EOMI, PERRL. absent: Scleral icterus Pupil Exam: NORMAL ACCOMODATION - ENT Exam ENT Exam: Mucous Membranes Dry, Normal External Ear Exam, Normal Oropharynx - Neck Exam Neck exam: Negative for: Lymphadenopathy, Thyromegaly - Respiratory Exam Respiratory Exam: Decreased Breath Sounds, Prolonged Expiratory Phase, Rhonchi - Cardiovascular Exam Cardiovascular Exam: Tachycardia, REGULAR RHYTHM, +S1, +S2 - GI/Abdominal Exam GI & Abdominal Exam: Diminished Bowel Sounds, Distended, Guarding, Tenderness. absent: Rigid - Rectal Exam Rectal Exam: Deferred - Exam Exam: NORMAL INSPECTION - Extremities Exam Extremities exam: Positive for: pedal edema, pedal pulses present. Negative for: calf tenderness, tenderness - Back Exam Back exam: absent: CVA tenderness (L), CVA tenderness (R), paraspinal tenderness - Neurological Exam Neurological exam: Alert, Altered, CN II-XII Intact - Psychiatric Exam Psychiatric exam: Depressed Results - Vital Signs Recent Vital Signs: Last Vital Signs Temp 95.5 F L 12/21/18 15:54 Pulse 110 H 12/21/18 15:05 Resp 27 H 12/21/18 15:05 BP 84/58 L 12/21/18 15:05 Pulse Ox 95 12/21/18 15:05 - Labs Result Diagrams: 12/21/18 12:23 12/21/18 03:11 Labs: Laboratory Results - last 24 hr 12/21/18 12/21/18 12/21/18 03:11 03:11 04:56 WBC 5.5 D RBC 2.28 L Hgb 7.6 L D Hct 22.9 L MCV 100.8 H D MCH 33.4 H MCHC 33.1 RDW 20.7 H Plt Count 72 L D MPV 9.8 Neut % (Auto) 87.3 H Lymph % (Auto) 3.9 L [place] % (Auto) 7.7 Eos % (Auto) 0.5 Baso % (Auto) 0.6 Neut # (Auto) 4.8 Lymph # (Auto) 0.2 L [place] # (Auto) 0.4 Eos # (Auto) 0.0 Baso # (Auto) 0.0 Neutrophils % (Manual) 84 H Band Neutrophils % 2 Lymphocytes % (Manual) 6 L Reactive Lymphs % Monocytes % (Manual) 8 Myelocytes % Platelet Estimate Slightly decreased L Hypochromasia (manual) Poikilocytosis (manual Anisocytosis (manual) Tear Drop Cells Ovalocytes Keira Cells Retic Count PT INR APTT Puncture Site pCO2 pO2 HCO3 ABG pH ABG Total CO2 ABG O2 Saturation ABG Base Excess ABG Hemoglobin ABG Carboxyhemoglobin POC ABG HHb (Measured) ABG Methemoglobin Gregory Test Hgb O2 Saturation Liter Flow Crit Value Called To Crit Value Called By Crit Value Read Back Blood Gas Notified Time Sodium 140 Potassium 4.9 Chloride 109 H Carbon Dioxide 15 L Anion Gap 21 H BUN 74 H Creatinine 5.5 H Est GFR ( Amer) 12 Est GFR (Non-Af Amer) 10 POC Glucose (mg/dL) Random Glucose 62 L D Serum Osmolality Lactic Acid 2.7 H Calcium 8.3 L Phosphorus 3.6 Magnesium 2.4 H Total Bilirubin 5.0 H AST 76 H D ALT 15 L D Alkaline Phosphatase 469 H D Ammonia Total Creatine Kinase CK-MB (Mass) Troponin I NT-Pro-B Natriuret Pep Total Protein 5.7 L Albumin 3.2 L D Globulin 2.5 Albumin/Globulin Ratio 1.3 Procalcitonin Free T4 Free T3 pg/mL TSH 3rd Generation Urine Color Urine Clarity Urine pH Ur Specific Mayo Urine Protein Urine Glucose (UA) Urine Ketones Urine Blood Urine Nitrate Urine Bilirubin Urine Urobilinogen Ur Leukocyte Esterase Urine WBC (Auto) Urine RBC (Auto) Urine WBC Clumps (Auto) Urine Bacteria Urine Osmolality Ur Random Creatinine U Random Total Protein Ur Random Sodium Urine Opiates Screen Urine Methadone Screen Ur Barbiturates Screen Ur Phencyclidine Scrn Ur Amphetamines Screen U Benzodiazepines Scrn U Oth Cocaine Metabols U Cannabinoids Screen C. difficile Ag & Toxin Blood Type Antibody Screen 12/21/18 12/21/18 12/21/18 06:55 06:55 06:59 WBC RBC Hgb Hct MCV MCH MCHC RDW Plt Count MPV Neut % (Auto) Lymph % (Auto) [place] % (Auto) Eos % (Auto) Baso % (Auto) Neut # (Auto) Lymph # (Auto) [place] # (Auto) Eos # (Auto) Baso # (Auto) Neutrophils % (Manual) Band Neutrophils % Lymphocytes % (Manual) Reactive Lymphs % Monocytes % (Manual) Myelocytes % Platelet Estimate Hypochromasia (manual) Poikilocytosis (manual Anisocytosis (manual) Tear Drop Cells Ovalocytes [place] Cells Retic Count PT 24.0 H INR 2.2 APTT 34 Puncture Site pCO2 pO2 HCO3 ABG pH ABG Total CO2 ABG O2 Saturation ABG Base Excess ABG Hemoglobin ABG Carboxyhemoglobin POC ABG HHb (Measured) ABG Methemoglobin Gregory Test Hgb O2 Saturation Liter Flow Crit Value Called To Crit Value Called By Crit Value Read Back Blood Gas Notified Time Sodium Potassium Chloride Carbon Dioxide Anion Gap BUN Creatinine Est GFR ( Amer) Est GFR (Non-Af Amer) POC Glucose (mg/dL) Random Glucose Serum Osmolality Lactic Acid Calcium Phosphorus Magnesium Total Bilirubin AST ALT Alkaline Phosphatase Ammonia 30 Total Creatine Kinase 628 H CK-MB (Mass) Troponin I 0.3950 H* NT-Pro-B Natriuret Pep Total Protein Albumin Globulin Albumin/Globulin Ratio Procalcitonin Free T4 Free T3 pg/mL TSH 3rd Generation Urine Color Urine Clarity Urine pH Ur Specific [place] Urine Protein Urine Glucose (UA) Urine Ketones Urine Blood Urine Nitrate Urine Bilirubin Urine Urobilinogen Ur Leukocyte Esterase Urine WBC (Auto) Urine RBC (Auto) Urine WBC Clumps (Auto) Urine Bacteria Urine Osmolality Ur Random Creatinine U Random Total Protein Ur Random Sodium Urine Opiates Screen Urine Methadone Screen Ur Barbiturates Screen Ur Phencyclidine Scrn Ur Amphetamines Screen U Benzodiazepines Scrn U Oth Cocaine Metabols U Cannabinoids Screen C. difficile Ag & Toxin Blood Type Antibody Screen 12/21/18 12/21/18 12/21/18 07:00 08:51 08:51 WBC RBC Hgb Hct MCV MCH MCHC RDW Plt Count MPV Neut % (Auto) Lymph % (Auto) [place] % (Auto) Eos % (Auto) Baso % (Auto) Neut # (Auto) Lymph # (Auto) [place] # (Auto) Eos # (Auto) Baso # (Auto) Neutrophils % (Manual) Band Neutrophils % Lymphocytes % (Manual) Reactive Lymphs % Monocytes % (Manual) Myelocytes % Platelet Estimate Hypochromasia (manual) Poikilocytosis (manual Anisocytosis (manual) Tear Drop Cells Ovalocytes [place] Cells Retic Count PT INR APTT Puncture Site pCO2 pO2 HCO3 ABG pH ABG Total CO2 ABG O2 Saturation ABG Base Excess ABG Hemoglobin ABG Carboxyhemoglobin POC ABG HHb (Measured) ABG Methemoglobin Gregory Test Hgb O2 Saturation Liter Flow Crit Value Called To Crit Value Called By Crit Value Read Back Blood Gas Notified Time Sodium Potassium Chloride Carbon Dioxide Anion Gap BUN Creatinine Est GFR ( Amer) Est GFR (Non-Af Amer) POC Glucose (mg/dL) 52 L Random Glucose Serum Osmolality Lactic Acid 2.6 H Calcium Phosphorus Magnesium Total Bilirubin AST ALT Alkaline Phosphatase Ammonia Total Creatine Kinase CK-MB (Mass) Troponin I NT-Pro-B Natriuret Pep Total Protein Albumin Globulin Albumin/Globulin Ratio Procalcitonin Free T4 Free T3 pg/mL TSH 3rd Generation Urine Color Urine Clarity Urine pH Ur Specific [place] Urine Protein Urine Glucose (UA) Urine Ketones Urine Blood Urine Nitrate Urine Bilirubin Urine Urobilinogen Ur Leukocyte Esterase Urine WBC (Auto) Urine RBC (Auto) Urine WBC Clumps (Auto) Urine Bacteria Urine Osmolality Ur Random Creatinine U Random Total Protein Ur Random Sodium Urine Opiates Screen Urine Methadone Screen Ur Barbiturates Screen Ur Phencyclidine Scrn Ur Amphetamines Screen U Benzodiazepines Scrn U Oth Cocaine Metabols U Cannabinoids Screen C. difficile Ag & Toxin Blood Type A POSITIVE Antibody Screen Negative 12/21/18 12/21/18 12/21/18 08:51 09:41 12:23 WBC 5.2 RBC 2.25 L Hgb 7.6 L Hct 22.8 L MCV 101.3 H MCH 33.8 H MCHC 33.4 RDW 21.0 H Plt Count 110 L D MPV 10.9 Neut % (Auto) 86.6 H Lymph % (Auto) 3.4 L [place] % (Auto) 8.7 Eos % (Auto) 0.5 Baso % (Auto) 0.8 Neut # (Auto) 4.5 Lymph # (Auto) 0.2 L [place] # (Auto) 0.5 Eos # (Auto) 0.0 Baso # (Auto) 0.0 Neutrophils % (Manual) 73 Band Neutrophils % 13 H* Lymphocytes % (Manual) 6 L Reactive Lymphs % 1 H Monocytes % (Manual) 6 Myelocytes % 1 H Platelet Estimate Slightly decreased L Hypochromasia (manual) Slight Poikilocytosis (manual Slight Anisocytosis (manual) Slight Tear Drop Cells Slight Ovalocytes Slight Keira Cells Moderate Retic Count PT INR APTT Puncture Site pCO2 pO2 HCO3 ABG pH ABG Total CO2 ABG O2 Saturation ABG Base Excess ABG Hemoglobin ABG Carboxyhemoglobin POC ABG HHb (Measured) ABG Methemoglobin Gregory Test Hgb O2 Saturation Liter Flow Crit Value Called To Crit Value Called By Crit Value Read Back Blood Gas Notified Time Sodium Potassium Chloride Carbon Dioxide Anion Gap BUN Creatinine Est GFR ( Amer) Est GFR (Non-Af Amer) POC Glucose (mg/dL) Random Glucose Serum Osmolality Lactic Acid Calcium Phosphorus Magnesium Total Bilirubin AST ALT Alkaline Phosphatase Ammonia Total Creatine Kinase CK-MB (Mass) Troponin I 0.3570 H* NT-Pro-B Natriuret Pep Total Protein Albumin Globulin Albumin/Globulin Ratio Procalcitonin Free T4 Free T3 pg/mL TSH 3rd Generation Urine Color Urine Clarity Urine pH Ur Specific [place] Urine Protein Urine Glucose (UA) Urine Ketones Urine Blood Urine Nitrate Urine Bilirubin Urine Urobilinogen Ur Leukocyte Esterase Urine WBC (Auto) Urine RBC (Auto) Urine WBC Clumps (Auto) Urine Bacteria Urine Osmolality Ur Random Creatinine U Random Total Protein Ur Random Sodium Urine Opiates Screen Urine Methadone Screen Ur Barbiturates Screen Ur Phencyclidine Scrn Ur Amphetamines Screen U Benzodiazepines Scrn U Oth Cocaine Metabols U Cannabinoids Screen C. difficile Ag & Toxin Negative Blood Type Antibody Screen 12/21/18 12/21/18 12/21/18 12:23 12:23 12:23 WBC RBC Hgb Hct MCV MCH MCHC RDW Plt Count MPV Neut % (Auto) Lymph % (Auto) [place] % (Auto) Eos % (Auto) Baso % (Auto) Neut # (Auto) Lymph # (Auto) [place] # (Auto) Eos # (Auto) Baso # (Auto) Neutrophils % (Manual) Band Neutrophils % Lymphocytes % (Manual) Reactive Lymphs % Monocytes % (Manual) Myelocytes % Platelet Estimate Hypochromasia (manual) Poikilocytosis (manual Anisocytosis (manual) Tear Drop Cells Ovalocytes Keira Cells Retic Count PT INR APTT Puncture Site pCO2 pO2 HCO3 ABG pH ABG Total CO2 ABG O2 Saturation ABG Base Excess ABG Hemoglobin ABG Carboxyhemoglobin POC ABG HHb (Measured) ABG Methemoglobin Gregory Test Hgb O2 Saturation Liter Flow Crit Value Called To Crit Value Called By Crit Value Read Back Blood Gas Notified Time Sodium Potassium Chloride Carbon Dioxide Anion Gap BUN Creatinine Est GFR ( Amer) Est GFR (Non-Af Amer) POC Glucose (mg/dL) Random Glucose Serum Osmolality Lactic Acid Calcium Phosphorus Magnesium Total Bilirubin AST ALT Alkaline Phosphatase Ammonia Total Creatine Kinase CK-MB (Mass) Troponin I NT-Pro-B Natriuret Pep 48258 H Total Protein Albumin Globulin Albumin/Globulin Ratio Procalcitonin 33.72 H Free T4 0.92 Free T3 pg/mL TSH 3rd Generation 39.20 H Urine Color Urine Clarity Urine pH Ur Specific [place] Urine Protein Urine Glucose (UA) Urine Ketones Urine Blood Urine Nitrate Urine Bilirubin Urine Urobilinogen Ur Leukocyte Esterase Urine WBC (Auto) Urine RBC (Auto) Urine WBC Clumps (Auto) Urine Bacteria Urine Osmolality Ur Random Creatinine U Random Total Protein Ur Random Sodium Urine Opiates Screen Urine Methadone Screen Ur Barbiturates Screen Ur Phencyclidine Scrn Ur Amphetamines Screen U Benzodiazepines Scrn U Oth Cocaine Metabols U Cannabinoids Screen C. difficile Ag & Toxin Blood Type Antibody Screen 12/21/18 12/21/18 12/21/18 12:55 13:32 14:48 WBC RBC Hgb Hct MCV MCH MCHC RDW Plt Count MPV Neut % (Auto) Lymph % (Auto) [place] % (Auto) Eos % (Auto) Baso % (Auto) Neut # (Auto) Lymph # (Auto) [place] # (Auto) Eos # (Auto) Baso # (Auto) Neutrophils % (Manual) Band Neutrophils % Lymphocytes % (Manual) Reactive Lymphs % Monocytes % (Manual) Myelocytes % Platelet Estimate Hypochromasia (manual) Poikilocytosis (manual Anisocytosis (manual) Tear Drop Cells Ovalocytes Keira Cells Retic Count PT INR APTT Puncture Site Lb pCO2 24 L pO2 92 HCO3 15.6 L ABG pH 7.33 L ABG Total CO2 13.4 L ABG O2 Saturation 99.1 H ABG Base Excess -12.0 L ABG Hemoglobin 7.5 L ABG Carboxyhemoglobin 2.0 H POC ABG HHb (Measured) 0.9 ABG Methemoglobin 1.1 Gregory Test Na Hgb O2 Saturation 96.0 Liter Flow 3.0 Crit Value Called To Dr mcguire Crit Value Called By Ta [place] outbound sales advisor Crit Value Read Back Y Blood Gas Notified Time 1258 Sodium Potassium Chloride Carbon Dioxide Anion Gap BUN Creatinine Est GFR ( Amer) Est GFR (Non-Af Amer) POC Glucose (mg/dL) Random Glucose Serum Osmolality Lactic Acid Calcium Phosphorus Magnesium Total Bilirubin AST ALT Alkaline Phosphatase Ammonia Total Creatine Kinase CK-MB (Mass) Troponin I NT-Pro-B Natriuret Pep Total Protein Albumin Globulin Albumin/Globulin Ratio Procalcitonin Free T4 Free T3 pg/mL TSH 3rd Generation Urine Color Yellow Urine Clarity Turbid Urine pH 6.0 Ur Specific [place] 1.014 Urine Protein 2+ H Urine Glucose (UA) Normal Urine Ketones Negative Urine Blood 2+ H Urine Nitrate Negative Urine Bilirubin Negative Urine Urobilinogen Normal Ur Leukocyte Esterase 3+ H Urine WBC (Auto) 2657 H Urine RBC (Auto) 70 H Urine WBC Clumps (Auto) Many H Urine Bacteria Mod H Urine Osmolality 316 Ur Random Creatinine 71.6 U Random Total Protein 980.0 H Ur Random Sodium 108 Urine Opiates Screen Negative Urine Methadone Screen Negative Ur Barbiturates Screen Negative Ur Phencyclidine Scrn Negative Ur Amphetamines Screen Negative U Benzodiazepines Scrn Negative U Oth Cocaine Metabols Negative U Cannabinoids Screen Negative C. difficile Ag & Toxin Blood Type Antibody Screen 12/21/18 12/21/18 12/21/18 15:15 15:15 17:06 WBC RBC Hgb Hct MCV MCH MCHC RDW Plt Count MPV Neut % (Auto) Lymph % (Auto) [place] % (Auto) Eos % (Auto) Baso % (Auto) Neut # (Auto) Lymph # (Auto) [place] # (Auto) Eos # (Auto) Baso # (Auto) Neutrophils % (Manual) Band Neutrophils % Lymphocytes % (Manual) Reactive Lymphs % Monocytes % (Manual) Myelocytes % Platelet Estimate Hypochromasia (manual) Poikilocytosis (manual Anisocytosis (manual) Tear Drop Cells Ovalocytes Keira Cells Retic Count 0.4 L PT INR APTT Puncture Site pCO2 pO2 HCO3 ABG pH ABG Total CO2 ABG O2 Saturation ABG Base Excess ABG Hemoglobin ABG Carboxyhemoglobin POC ABG HHb (Measured) ABG Methemoglobin Gregory Test Hgb O2 Saturation Liter Flow Crit Value Called To Crit Value Called By Crit Value Read Back Blood Gas Notified Time Sodium Potassium Chloride Carbon Dioxide Anion Gap BUN Creatinine Est GFR ( Amer) Est GFR (Non-Af Amer) POC Glucose (mg/dL) Random Glucose Serum Osmolality 317 H Lactic Acid Calcium Phosphorus Magnesium Total Bilirubin AST ALT Alkaline Phosphatase Ammonia Total Creatine Kinase 615 H CK-MB (Mass) 2.65 Troponin I 0.2760 H* NT-Pro-B Natriuret Pep Total Protein Albumin Globulin Albumin/Globulin Ratio Procalcitonin Free T4 0.97 Free T3 pg/mL 2.22 L TSH 3rd Generation Urine Color Urine Clarity Urine pH Ur Specific [place] Urine Protein Urine Glucose (UA) Urine Ketones Urine Blood Urine Nitrate Urine Bilirubin Urine Urobilinogen Ur Leukocyte Esterase Urine WBC (Auto) Urine RBC (Auto) Urine WBC Clumps (Auto) Urine Bacteria Urine Osmolality Ur Random Creatinine U Random Total Protein Ur Random Sodium Urine Opiates Screen Urine Methadone Screen Ur Barbiturates Screen Ur Phencyclidine Scrn Ur Amphetamines Screen U Benzodiazepines Scrn U Oth Cocaine Metabols U Cannabinoids Screen C. difficile Ag & Toxin Blood Type Antibody Screen Assessment & Plan (1) UTI (urinary tract infection) Status: Acute (2) MAHIN (acute kidney injury) Status: Acute (3) Anemia Status: Acute (4) Opiate overdose Status: Acute (5) Abdominal distension Status: Acute (6) Acute exacerbation of CHF (congestive heart failure) Status: Acute (7) Afib Status: Acute (8) Anasarca Status: Acute (9) Ascites Status: Acute (10) CHF (congestive heart failure) Status: Acute (11) Elevated brain natriuretic peptide (BNP) level Status: Acute (12) Malignant ascites Status: Acute (13) Pain from bone metastases Status: Acute (14) Prostate CA Status: Acute (15) Severe back pain Status: Acute (16) Stage IV adenocarcinoma of prostate Status: Acute (17) HTN (hypertension) Status: Chronic (18) History of coronary artery disease Status: Chronic (19) History of prostate cancer Status: Chronic - Assessment and Plan (Free Text) Assessment: given Vanco/Azactam in ER will start Cefepime daily for possible HD prognosis poor from outset
[2018-12-21 17:51] LABS: IRON 55 ug/dL (49-181)
[2018-12-21 17:58] LABS: TOTAL IRON BINDING CAPACITY 211 ug/dL (250-450)
[2018-12-21] MEDS ORDERED: Naloxone 0.4 mg/ml Inj (Adult) IVP ONE (18:00)
[2018-12-21 18:06] LABS: % IRON SATURATION 26 (20-55)
--- NOTE | 2018-12-21 18:37 | CP.PCM.PCO ---
Physician Communication Note - Physician Communication Note Physician Communication Note: transfuse 2 prbc
[2018-12-21 18:38] LABS: FOLATE > 20.0 ng/mL
[2018-12-21] MEDS: Cefepime IV 1 gm in Dextrose 1 GM/50 ML BAG IVPB SCH (18:53)
--- NOTE | 2018-12-21 18:57 | CP.PCM.CON ---
<Sky Hassan - Last Filed: 12/21/18 18:47> History of Present Illness - History of Present Illness History of Present Illness: Nephro consult note for Dr. Blevins Service Sky Hassan DO, PGY-3 Consulted for: Acute renal failure, Cr. 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 Patient prescribed both medications for chronic back and knee pain. Family not present at time of exam/interview, and patient only partially oriented at time of interview, so HPI primarily from charting. Patient lives with and has 2 children who help care for him. Reports managing his own medications but only able to state oxycodone by name. Last thing patient remembers is his knee pain bothering him overnight. Found down with pills scattered around him, uncertain how many of each were taken and how long prior to discovery. Unresponsive at time of EMS arrival, with SBP in 80's. Given Narcan x1 in the field, and rapidly became arousable. In the ED, was bolused 1L NS with improvement of SBP to 90's, but subsequently became hypotensive again, requiring initiation of phenylephine peripherally pending central access being obtained. Somnolent but arousable, breathing without issue, unable to clearly elicit any symptoms or complaints other than knee and back pain. Pt unable to state how much he has taken. On 200cc/hr x1 bag of D5 at time of exam. On admission, labs concerning for hypoglycemia of 52, Cr 5.5 (baseline per prior charting 1.3-1.5), trop of 0.395, and bandemia of 13. PMH: as above PSH: Inguinal hernia repair 2016; routine paracentesis (last 10/09/18) SH: Former Smoker; Former Alcohol abuser Quit 1977; No illegal drug use; Live with ; FH: No known family Hx Review of Systems - Review of Systems Systems not reviewed;Unavailable: Altered Mental Status Past Patient History - Infectious Disease Hx of Infectious Diseases: None - Tetanus Immunizations Tetanus Immunization: Unknown - Past Medical History & Family History Past Medical History?: Yes - Past Social History Smoking Status: Former Smoker Alcohol: Other Drugs: Denies, Inhalants Home Situation {Lives}: With Family - CARDIAC Hx Hypertension: Yes - PULMONARY Hx Respiratory Disorders: No - NEUROLOGICAL Hx Neurological Disorder: No - HEENT Hx HEENT Problems: No - RENAL Hx Renal Failure: Yes - ENDOCRINE/METABOLIC Hx Endocrine Disorders: No - HEMATOLOGICAL/ONCOLOGICAL Hx Cancer: Yes (stage 4 prostate) - INTEGUMENTARY Hx Dermatological Problems: No - MUSCULOSKELETAL/RHEUMATOLOGICAL Hx Arthritis: Yes - GASTROINTESTINAL Hx Gall Bladder Disease: Yes Hx Gastritis: Yes - GENITOURINARY/GYNECOLOGICAL Hx Genitourinary Disorders: No - PSYCHIATRIC Hx Substance Use: No - SURGICAL HISTORY Hx Surgeries: Yes Other/Comment: hernia repair 03/20/17 - ANESTHESIA Hx Anesthesia: Yes Hx Anesthesia Reactions: No Hx Malignant Hyperthermia: No Meds Allergies/Adverse Reactions: Allergies Allergy/AdvReac Type Severity Reaction Status Date / Time No Known Allergies Allergy Verified 12/21/18 02:37 - Medications Medications: Current Medications Amiodarone HCl (Cordarone) 200 mg PO DAILY [facility] Last Admin: 12/21/18 13:26 Dose: Not Given Aspirin (Aspirin Chewable) 81 mg PO DAILY [facility] Dextrose (Dextrose 50% Inj) 0 ml IV STAT PRN; Protocol PRN Reason: Hypoglycemia Protocol Dextrose (Glutose 15) 0 gm PO ONCE PRN; Protocol PRN Reason: Hypoglycemia Protocol Famotidine (Pepcid) 20 mg IVP DAILY [facility] Last Admin: 12/21/18 10:36 Dose: Not Given Glucagon (Glucagen Diagnostic Kit) 0 mg IM STAT PRN; Protocol PRN Reason: Hypoglycemia Protocol Heparin Sodium (Porcine) (Heparin) 5,000 units SC Q8 [facility] Home Med (Abiraterone Acetate [Zytiga]) 250 mg PO DAILY [facility] Home Med (Bicalutamide [Casodex]) 50 mg PO DAILY [facility] Phenylephrine HCl 30 mg/ (Dextrose) 253 mls @ 20.24 mls/hr IV .[id number] PRN; Protocol PRN Reason: TITRATE PER MD ORDER Last Titration: 12/21/18 18:31 Dose: 50 mcg/min, 25.3 mls/hr Sodium Chloride (Sodium Chloride 0.9%) 1,000 mls @ 80 mls/hr IV .[id number] [facility] Last Admin: 12/21/18 17:40 Dose: 80 mls/hr Cefepime HCl (Maxipime Iv 1 Gm Premix) 1 gm in 50 mls @ 100 mls/hr IVPB Q24H [facility]; Protocol Sodium Bicarbonate 150 meq/ (Dextrose) 1,150 mls @ 80 mls/hr IV .[id number] [facility] Stop: 12/22/18 23:30 Levothyroxine Sodium (Synthroid) 50 mcg PO DAILY@0630 [facility] Last Admin: 12/21/18 14:23 Dose: Not Given Prednisone (Prednisone Tab) 5 mg PO BID [facility] Last Admin: 12/21/18 17:41 Dose: 5 mg Rosuvastatin Calcium (Crestor) 5 mg PO [facility] Tamsulosin HCl (Flomax) 0.4 mg PO DAILY [facility] Last Admin: 12/21/18 10:58 Dose: 0.4 mg Physical Exam - Constitutional Appears: Chronically Ill Additional comments: AMS, sedated, disoriented (oriented to self and to location only, not to time) - Head Exam Head Exam: ATRAUMATIC, NORMAL INSPECTION, NORMOCEPHALIC - Eye Exam Eye Exam: Normal appearance. absent: Conjunctival injection, Scleral icterus Pupil Exam: absent: Irregular, Unequal - ENT Exam ENT Exam: Mucous Membranes Dry - Neck Exam Neck exam: Positive for: Normal Inspection. Negative for: Lymphadenopathy - Respiratory Exam Respiratory Exam: Clear to Auscultation Bilateral, Wheezes (mild-mod diffuse wheezing). absent: Accessory Muscle Use, Chest Wall Tenderness, Decreased Breath Sounds, Rales, Rhonchi - Cardiovascular Exam Cardiovascular Exam: Tachycardia, RRR, +S1, +S2. absent: Bradycardia, Irregular Rhythm, REGULAR RHYTHM, JVD, +S4 - GI/Abdominal Exam GI & Abdominal Exam: Diminished Bowel Sounds, Soft. absent: Distended, Firm, Hyperactive Bowel Sounds, Hypoactive Bowel Sounds, Normal Bowel Sounds, Rigid - Extremities Exam Extremities exam: Positive for: pedal pulses present. Negative for: joint swelling, pedal edema, tenderness - Neurological Exam Additional comments: sedated but arousable, s/p narcan by EMS, able to follow simple commands and answer simple yes/no questions - Psychiatric Exam Additional comments: depressed/flat affect - Skin Skin Exam: Dry, Intact, Normal Color, Warm Results - Vital Signs Recent Vital Signs: Last Vital Signs Temp 95.5 F L 12/21/18 15:54 Pulse 110 H 12/21/18 15:05 Resp 27 H 12/21/18 15:05 BP 84/58 L 12/21/18 15:05 Pulse Ox 95 12/21/18 15:05 - Labs Result Diagrams: 12/21/18 12:23 12/21/18 17:06 Labs: Laboratory Results - last 24 hr 12/21/18 12/21/18 12/21/18 03:11 03:11 04:56 WBC 5.5 D RBC 2.28 L Hgb 7.6 L D Hct 22.9 L MCV 100.8 H D MCH 33.4 H MCHC 33.1 RDW 20.7 H Plt Count 72 L D MPV 9.8 Neut % (Auto) 87.3 H Lymph % (Auto) 3.9 L [place] % (Auto) 7.7 Eos % (Auto) 0.5 Baso % (Auto) 0.6 Neut # (Auto) 4.8 Lymph # (Auto) 0.2 L [place] # (Auto) 0.4 Eos # (Auto) 0.0 Baso # (Auto) 0.0 Neutrophils % (Manual) 84 H Band Neutrophils % 2 Lymphocytes % (Manual) 6 L Reactive Lymphs % Monocytes % (Manual) 8 Myelocytes % Platelet Estimate Slightly decreased L Hypochromasia (manual) Poikilocytosis (manual Anisocytosis (manual) Tear Drop Cells Ovalocytes Keira Cells Retic Count Haptoglobin PT INR APTT Puncture Site pCO2 pO2 HCO3 ABG pH ABG Total CO2 ABG O2 Saturation ABG Base Excess ABG Hemoglobin ABG Carboxyhemoglobin POC ABG HHb (Measured) ABG Methemoglobin Gregory Test Hgb O2 Saturation Liter Flow Crit Value Called To Crit Value Called By Crit Value Read Back Blood Gas Notified Time Sodium 140 Potassium 4.9 Chloride 109 H Carbon Dioxide 15 L Anion Gap 21 H BUN 74 H Creatinine 5.5 H Est GFR ( Amer) 12 Est GFR (Non-Af Amer) 10 POC Glucose (mg/dL) Random Glucose 62 L D Serum Osmolality Lactic Acid 2.7 H Uric Acid Calcium 8.3 L Phosphorus 3.6 Magnesium 2.4 H Iron TIBC % Saturation Ferritin Total Bilirubin 5.0 H AST 76 H D ALT 15 L D Alkaline Phosphatase 469 H D Ammonia Total Creatine Kinase CK-MB (Mass) Troponin I NT-Pro-B Natriuret Pep Total Protein 5.7 L Albumin 3.2 L D Globulin 2.5 Albumin/Globulin Ratio 1.3 Vitamin B12 Folate Procalcitonin Free T4 Free T3 pg/mL TSH 3rd Generation Urine Color Urine Clarity Urine pH Ur Specific [place] Urine Protein Urine Glucose (UA) Urine Ketones Urine Blood Urine Nitrate Urine Bilirubin Urine Urobilinogen Ur Leukocyte Esterase Urine WBC (Auto) Urine RBC (Auto) Urine WBC Clumps (Auto) Urine Bacteria Urine Osmolality Ur Random Creatinine U Random Total Protein Ur Random Sodium Urine Opiates Screen Urine Methadone Screen Ur Barbiturates Screen Ur Phencyclidine Scrn Ur Amphetamines Screen U Benzodiazepines Scrn U Oth Cocaine Metabols U Cannabinoids Screen C. difficile Ag & Toxin Blood Type Antibody Screen 12/21/18 12/21/18 12/21/18 06:55 06:55 06:59 WBC RBC Hgb Hct MCV MCH MCHC RDW Plt Count MPV Neut % (Auto) Lymph % (Auto) [place] % (Auto) Eos % (Auto) Baso % (Auto) Neut # (Auto) Lymph # (Auto) [place] # (Auto) Eos # (Auto) Baso # (Auto) Neutrophils % (Manual) Band Neutrophils % Lymphocytes % (Manual) Reactive Lymphs % Monocytes % (Manual) Myelocytes % Platelet Estimate Hypochromasia (manual) Poikilocytosis (manual Anisocytosis (manual) Tear Drop Cells Ovalocytes Keira Cells Retic Count Haptoglobin PT 24.0 H INR 2.2 APTT 34 Puncture Site pCO2 pO2 HCO3 ABG pH ABG Total CO2 ABG O2 Saturation ABG Base Excess ABG Hemoglobin ABG Carboxyhemoglobin POC ABG HHb (Measured) ABG Methemoglobin Gregory Test Hgb O2 Saturation Liter Flow Crit Value Called To Crit Value Called By Crit Value Read Back Blood Gas Notified Time Sodium Potassium Chloride Carbon Dioxide Anion Gap BUN Creatinine Est GFR ( Amer) Est GFR (Non-Af Amer) POC Glucose (mg/dL) Random Glucose Serum Osmolality Lactic Acid Uric Acid Calcium Phosphorus Magnesium Iron TIBC % Saturation Ferritin Total Bilirubin AST ALT Alkaline Phosphatase Ammonia 30 Total Creatine Kinase 628 H CK-MB (Mass) Troponin I 0.3950 H* NT-Pro-B Natriuret Pep Total Protein Albumin Globulin Albumin/Globulin Ratio Vitamin B12 Folate Procalcitonin Free T4 Free T3 pg/mL TSH 3rd Generation Urine Color Urine Clarity Urine pH Ur Specific [place] Urine Protein Urine Glucose (UA) Urine Ketones Urine Blood Urine Nitrate Urine Bilirubin Urine Urobilinogen Ur Leukocyte Esterase Urine WBC (Auto) Urine RBC (Auto) Urine WBC Clumps (Auto) Urine Bacteria Urine Osmolality Ur Random Creatinine U Random Total Protein Ur Random Sodium Urine Opiates Screen Urine Methadone Screen Ur Barbiturates Screen Ur Phencyclidine Scrn Ur Amphetamines Screen U Benzodiazepines Scrn U Oth Cocaine Metabols U Cannabinoids Screen C. difficile Ag & Toxin Blood Type Antibody Screen 12/21/18 12/21/18 12/21/18 07:00 08:51 08:51 WBC RBC Hgb Hct MCV MCH MCHC RDW Plt Count MPV Neut % (Auto) Lymph % (Auto) [place] % (Auto) Eos % (Auto) Baso % (Auto) Neut # (Auto) Lymph # (Auto) [place] # (Auto) Eos # (Auto) Baso # (Auto) Neutrophils % (Manual) Band Neutrophils % Lymphocytes % (Manual) Reactive Lymphs % Monocytes % (Manual) Myelocytes % Platelet Estimate Hypochromasia (manual) Poikilocytosis (manual Anisocytosis (manual) Tear Drop Cells Ovalocytes Keira Cells Retic Count Haptoglobin PT INR APTT Puncture Site pCO2 pO2 HCO3 ABG pH ABG Total CO2 ABG O2 Saturation ABG Base Excess ABG Hemoglobin ABG Carboxyhemoglobin POC ABG HHb (Measured) ABG Methemoglobin Gregory Test Hgb O2 Saturation Liter Flow Crit Value Called To Crit Value Called By Crit Value Read Back Blood Gas Notified Time Sodium Potassium Chloride Carbon Dioxide Anion Gap BUN Creatinine Est GFR ( Amer) Est GFR (Non-Af Amer) POC Glucose (mg/dL) 52 L Random Glucose Serum Osmolality Lactic Acid 2.6 H Uric Acid Calcium Phosphorus Magnesium Iron TIBC % Saturation Ferritin Total Bilirubin AST ALT Alkaline Phosphatase Ammonia Total Creatine Kinase CK-MB (Mass) Troponin I NT-Pro-B Natriuret Pep Total Protein Albumin Globulin Albumin/Globulin Ratio Vitamin B12 Folate Procalcitonin Free T4 Free T3 pg/mL TSH 3rd Generation Urine Color Urine Clarity Urine pH Ur Specific [place] Urine Protein Urine Glucose (UA) Urine Ketones Urine Blood Urine Nitrate Urine Bilirubin Urine Urobilinogen Ur Leukocyte Esterase Urine WBC (Auto) Urine RBC (Auto) Urine WBC Clumps (Auto) Urine Bacteria Urine Osmolality Ur Random Creatinine U Random Total Protein Ur Random Sodium Urine Opiates Screen Urine Methadone Screen Ur Barbiturates Screen Ur Phencyclidine Scrn Ur Amphetamines Screen U Benzodiazepines Scrn U Oth Cocaine Metabols U Cannabinoids Screen C. difficile Ag & Toxin Blood Type A POSITIVE Antibody Screen Negative 12/21/18 12/21/18 12/21/18 08:51 09:41 12:23 WBC 5.2 RBC 2.25 L Hgb 7.6 L Hct 22.8 L MCV 101.3 H MCH 33.8 H MCHC 33.4 RDW 21.0 H Plt Count 110 L D MPV 10.9 Neut % (Auto) 86.6 H Lymph % (Auto) 3.4 L [place] % (Auto) 8.7 Eos % (Auto) 0.5 Baso % (Auto) 0.8 Neut # (Auto) 4.5 Lymph # (Auto) 0.2 L [place] # (Auto) 0.5 Eos # (Auto) 0.0 Baso # (Auto) 0.0 Neutrophils % (Manual) 73 Band Neutrophils % 13 H* Lymphocytes % (Manual) 6 L Reactive Lymphs % 1 H Monocytes % (Manual) 6 Myelocytes % 1 H Platelet Estimate Slightly decreased L Hypochromasia (manual) Slight Poikilocytosis (manual Slight Anisocytosis (manual) Slight Tear Drop Cells Slight Ovalocytes Slight Keira Cells Moderate Retic Count Haptoglobin PT INR APTT Puncture Site pCO2 pO2 HCO3 ABG pH ABG Total CO2 ABG O2 Saturation ABG Base Excess ABG Hemoglobin ABG Carboxyhemoglobin POC ABG HHb (Measured) ABG Methemoglobin Gregory Test Hgb O2 Saturation Liter Flow Crit Value Called To Crit Value Called By Crit Value Read Back Blood Gas Notified Time Sodium Potassium Chloride Carbon Dioxide Anion Gap BUN Creatinine Est GFR ( Amer) Est GFR (Non-Af Amer) POC Glucose (mg/dL) Random Glucose Serum Osmolality Lactic Acid Uric Acid Calcium Phosphorus Magnesium Iron TIBC % Saturation Ferritin Total Bilirubin AST ALT Alkaline Phosphatase Ammonia Total Creatine Kinase CK-MB (Mass) Troponin I 0.3570 H* NT-Pro-B Natriuret Pep Total Protein Albumin Globulin Albumin/Globulin Ratio Vitamin B12 Folate Procalcitonin Free T4 Free T3 pg/mL TSH 3rd Generation Urine Color Urine Clarity Urine pH Ur Specific [place] Urine Protein Urine Glucose (UA) Urine Ketones Urine Blood Urine Nitrate Urine Bilirubin Urine Urobilinogen Ur Leukocyte Esterase Urine WBC (Auto) Urine RBC (Auto) Urine WBC Clumps (Auto) Urine Bacteria Urine Osmolality Ur Random Creatinine U Random Total Protein Ur Random Sodium Urine Opiates Screen Urine Methadone Screen Ur Barbiturates Screen Ur Phencyclidine Scrn Ur Amphetamines Screen U Benzodiazepines Scrn U Oth Cocaine Metabols U Cannabinoids Screen C. difficile Ag & Toxin Negative Blood Type Antibody Screen 12/21/18 12/21/18 12/21/18 12:23 12:23 12:23 WBC RBC Hgb Hct MCV MCH MCHC RDW Plt Count MPV Neut % (Auto) Lymph % (Auto) [place] % (Auto) Eos % (Auto) Baso % (Auto) Neut # (Auto) Lymph # (Auto) [place] # (Auto) Eos # (Auto) Baso # (Auto) Neutrophils % (Manual) Band Neutrophils % Lymphocytes % (Manual) Reactive Lymphs % Monocytes % (Manual) Myelocytes % Platelet Estimate Hypochromasia (manual) Poikilocytosis (manual Anisocytosis (manual) Tear Drop Cells Ovalocytes [place] Cells Retic Count Haptoglobin PT INR APTT Puncture Site pCO2 pO2 HCO3 ABG pH ABG Total CO2 ABG O2 Saturation ABG Base Excess ABG Hemoglobin ABG Carboxyhemoglobin POC ABG HHb (Measured) ABG Methemoglobin Gregory Test Hgb O2 Saturation Liter Flow Crit Value Called To Crit Value Called By Crit Value Read Back Blood Gas Notified Time Sodium Potassium Chloride Carbon Dioxide Anion Gap BUN Creatinine Est GFR ( Amer) Est GFR (Non-Af Amer) POC Glucose (mg/dL) Random Glucose Serum Osmolality Lactic Acid Uric Acid Calcium Phosphorus Magnesium Iron TIBC % Saturation Ferritin Total Bilirubin AST ALT Alkaline Phosphatase Ammonia Total Creatine Kinase CK-MB (Mass) Troponin I NT-Pro-B Natriuret Pep 26698 H Total Protein Albumin Globulin Albumin/Globulin Ratio Vitamin B12 Folate Procalcitonin 33.72 H Free T4 0.92 Free T3 pg/mL TSH 3rd Generation 39.20 H Urine Color Urine Clarity Urine pH Ur Specific [place] Urine Protein Urine Glucose (UA) Urine Ketones Urine Blood Urine Nitrate Urine Bilirubin Urine Urobilinogen Ur Leukocyte Esterase Urine WBC (Auto) Urine RBC (Auto) Urine WBC Clumps (Auto) Urine Bacteria Urine Osmolality Ur Random Creatinine U Random Total Protein Ur Random Sodium Urine Opiates Screen Urine Methadone Screen Ur Barbiturates Screen Ur Phencyclidine Scrn Ur Amphetamines Screen U Benzodiazepines Scrn U Oth Cocaine Metabols U Cannabinoids Screen C. difficile Ag & Toxin Blood Type Antibody Screen 12/21/18 12/21/18 12/21/18 12:55 13:32 14:48 WBC RBC Hgb Hct MCV MCH MCHC RDW Plt Count MPV Neut % (Auto) Lymph % (Auto) [place] % (Auto) Eos % (Auto) Baso % (Auto) Neut # (Auto) Lymph # (Auto) [place] # (Auto) Eos # (Auto) Baso # (Auto) Neutrophils % (Manual) Band Neutrophils % Lymphocytes % (Manual) Reactive Lymphs % Monocytes % (Manual) Myelocytes % Platelet Estimate Hypochromasia (manual) Poikilocytosis (manual Anisocytosis (manual) Tear Drop Cells Ovalocytes Keira Cells Retic Count Haptoglobin PT INR APTT Puncture Site Lb pCO2 24 L pO2 92 HCO3 15.6 L ABG pH 7.33 L ABG Total CO2 13.4 L ABG O2 Saturation 99.1 H ABG Base Excess -12.0 L ABG Hemoglobin 7.5 L ABG Carboxyhemoglobin 2.0 H POC ABG HHb (Measured) 0.9 ABG Methemoglobin 1.1 Gregory Test Na Hgb O2 Saturation 96.0 Liter Flow 3.0 Crit Value Called To Dr mcguire Crit Value Called By [place] celery tier Crit Value Read Back Y Blood Gas Notified Time 1258 Sodium Potassium Chloride Carbon Dioxide Anion Gap BUN Creatinine Est GFR ( Amer) Est GFR (Non-Af Amer) POC Glucose (mg/dL) Random Glucose Serum Osmolality Lactic Acid Uric Acid Calcium Phosphorus Magnesium Iron TIBC % Saturation Ferritin Total Bilirubin AST ALT Alkaline Phosphatase Ammonia Total Creatine Kinase CK-MB (Mass) Troponin I NT-Pro-B Natriuret Pep Total Protein Albumin Globulin Albumin/Globulin Ratio Vitamin B12 Folate Procalcitonin Free T4 Free T3 pg/mL TSH 3rd Generation Urine Color Yellow Urine Clarity Turbid Urine pH 6.0 Ur Specific [place] 1.014 Urine Protein 2+ H Urine Glucose (UA) Normal Urine Ketones Negative Urine Blood 2+ H Urine Nitrate Negative Urine Bilirubin Negative Urine Urobilinogen Normal Ur Leukocyte Esterase 3+ H Urine WBC (Auto) 2657 H Urine RBC (Auto) 70 H Urine WBC Clumps (Auto) Many H Urine Bacteria Mod H Urine Osmolality 316 Ur Random Creatinine 71.6 U Random Total Protein 980.0 H Ur Random Sodium 108 Urine Opiates Screen Negative Urine Methadone Screen Negative Ur Barbiturates Screen Negative Ur Phencyclidine Scrn Negative Ur Amphetamines Screen Negative U Benzodiazepines Scrn Negative U Oth Cocaine Metabols Negative U Cannabinoids Screen Negative C. difficile Ag & Toxin Blood Type Antibody Screen 12/21/18 12/21/18 12/21/18 15:15 15:15 17:06 WBC RBC Hgb Hct MCV MCH MCHC RDW Plt Count MPV Neut % (Auto) Lymph % (Auto) [place] % (Auto) Eos % (Auto) Baso % (Auto) Neut # (Auto) Lymph # (Auto) [place] # (Auto) Eos # (Auto) Baso # (Auto) Neutrophils % (Manual) Band Neutrophils % Lymphocytes % (Manual) Reactive Lymphs % Monocytes % (Manual) Myelocytes % Platelet Estimate Hypochromasia (manual) Poikilocytosis (manual Anisocytosis (manual) Tear Drop Cells Ovalocytes [place] Cells Retic Count Haptoglobin PT INR APTT Puncture Site pCO2 pO2 HCO3 ABG pH ABG Total CO2 ABG O2 Saturation ABG Base Excess ABG Hemoglobin ABG Carboxyhemoglobin POC ABG HHb (Measured) ABG Methemoglobin Gregory Test Hgb O2 Saturation Liter Flow Crit Value Called To Crit Value Called By Crit Value Read Back Blood Gas Notified Time Sodium Potassium Chloride Carbon Dioxide Anion Gap BUN Creatinine Est GFR ( Amer) Est GFR (Non-Af Amer) POC Glucose (mg/dL) Random Glucose Serum Osmolality 317 H Lactic Acid Uric Acid Calcium Phosphorus Magnesium Iron 55 TIBC 211 L % Saturation 26 Ferritin Total Bilirubin AST ALT Alkaline Phosphatase Ammonia Total Creatine Kinase 615 H CK-MB (Mass) 2.65 Troponin I 0.2760 H* NT-Pro-B Natriuret Pep Total Protein Albumin Globulin Albumin/Globulin Ratio Vitamin B12 Folate Procalcitonin Free T4 0.97 Free T3 pg/mL 2.22 L TSH 3rd Generation Urine Color Urine Clarity Urine pH Ur Specific [place] Urine Protein Urine Glucose (UA) Urine Ketones Urine Blood Urine Nitrate Urine Bilirubin Urine Urobilinogen Ur Leukocyte Esterase Urine WBC (Auto) Urine RBC (Auto) Urine WBC Clumps (Auto) Urine Bacteria Urine Osmolality Ur Random Creatinine U Random Total Protein Ur Random Sodium Urine Opiates Screen Urine Methadone Screen Ur Barbiturates Screen Ur Phencyclidine Scrn Ur Amphetamines Screen U Benzodiazepines Scrn U Oth Cocaine Metabols U Cannabinoids Screen C. difficile Ag & Toxin Blood Type Antibody Screen 12/21/18 12/21/18 12/21/18 17:06 17:06 17:06 WBC RBC Hgb Hct MCV MCH MCHC RDW Plt Count MPV Neut % (Auto) Lymph % (Auto) [place] % (Auto) Eos % (Auto) Baso % (Auto) Neut # (Auto) Lymph # (Auto) [place] # (Auto) Eos # (Auto) Baso # (Auto) Neutrophils % (Manual) Band Neutrophils % Lymphocytes % (Manual) Reactive Lymphs % Monocytes % (Manual) Myelocytes % Platelet Estimate Hypochromasia (manual) Poikilocytosis (manual Anisocytosis (manual) Tear Drop Cells Ovalocytes Keira Cells Retic Count 0.4 L Haptoglobin 292.0 H PT INR APTT Puncture Site pCO2 pO2 HCO3 ABG pH ABG Total CO2 ABG O2 Saturation ABG Base Excess ABG Hemoglobin ABG Carboxyhemoglobin POC ABG HHb (Measured) ABG Methemoglobin Gregory Test Hgb O2 Saturation Liter Flow Crit Value Called To Crit Value Called By Crit Value Read Back Blood Gas Notified Time Sodium 137 Potassium 5.1 Chloride 110 H Carbon Dioxide 13 L Anion Gap 20 BUN 70 H Creatinine 4.8 H Est GFR ( Amer) 14 Est GFR (Non-Af Amer) 12 POC Glucose (mg/dL) Random Glucose 162 H D Serum Osmolality Lactic Acid Uric Acid 8.1 Calcium 7.5 L Phosphorus 3.9 Magnesium 2.2 Iron TIBC % Saturation Ferritin 754.0 Total Bilirubin 4.6 H AST 90 H ALT < 6 L D Alkaline Phosphatase 348 H D Ammonia Total Creatine Kinase 577 H CK-MB (Mass) Troponin I NT-Pro-B Natriuret Pep Total Protein 5.3 L Albumin 2.9 L Globulin 2.5 Albumin/Globulin Ratio 1.2 Vitamin B12 669 Folate > 20.0 Procalcitonin Free T4 Free T3 pg/mL TSH 3rd Generation Urine Color Urine Clarity Urine pH Ur Specific [place] Urine Protein Urine Glucose (UA) Urine Ketones Urine Blood Urine Nitrate Urine Bilirubin Urine Urobilinogen Ur Leukocyte Esterase Urine WBC (Auto) Urine RBC (Auto) Urine WBC Clumps (Auto) Urine Bacteria Urine Osmolality Ur Random Creatinine U Random Total Protein Ur Random Sodium Urine Opiates Screen Urine Methadone Screen Ur Barbiturates Screen Ur Phencyclidine Scrn Ur Amphetamines Screen U Benzodiazepines Scrn U Oth Cocaine Metabols U Cannabinoids Screen C. difficile Ag & Toxin Blood Type Antibody Screen Assessment & Plan - Assessment and Plan (Free Text) Assessment: This is a 78yo M with PMH of knee OA, CAD, HFrEF (15-20%), HTN, Prostate Ca stage IV with spinal mets, Liver Cirrhosis, Hypothyroidism, Umbilical hernia, and AFib who was brought in by ambulance after being found down at home by family, surrounded by scattered pills of Oxycodone and MS Contin. Nephro consulted for acutely elevated Cr concerning for renal failure. Plan: 1) acute renal failure, Cr 5.5 Baseline 1.3-1.5 2) Opiate overdose requiring Narcan 3) Shock requiring pressor support Septic vs Cardiogenic 4) Cirrhosis with ascites 5) HFrEF (15-20%) 6) Stage IV prostate Ca with spinal mets 7) Elevated trop 8) Afib -likely renal failure is 2/2 shock state, suspect infectious component and hypovolemic component, possible ATN Hx stage IV prostate Ca and difficult to access with gill, but no hydronephrosis on renal US so unlikely this is obstructive etiology -200cc dark brown urine with rapidly settling sediment obtained with straight ca th, sent for analysis pending urine Na, Cr, protein:cr ratio, urine/serum osms pending uric acid, repeat cmp/mg/phos, CK, procal UA ordered, concerning for pyuria, given aztreonam and vanco in ED; agree with cefepime now, would avoid further vanco given current renal fxn -Elevated trop likely 2/2 renal leak vs myocardial ischemia 2/2 hypoperfusion, now downtrending -Received 1L NS in ED, another 1L in ICU; recommend continue fluid resuscitation gently given shock state requiring pressors and clinically hypovolemic state recommend care hydration given CHF with very low EF (15-20% on last echo) -Pt not acutely in need of HD, but will likely require given current renal dysfunction, possible ATN, pending central access placement by ICU can consider starting HD tomorrow -remains somnolent, and given possible (unclear amount) of MS Contin in system, might benefit from additional dose of Narcan or possibly Narcan drip -Agree with Paliative consult in light of extensive hx and comorbidities Patient seen, reviewed, and discussed with attending, Dr. Blevins <Kar Blevins - Last Filed: 12/22/18 07:16> Meds - Medications Medications: Current Medications Amiodarone HCl (Cordarone) 200 mg PO DAILY [facility] Last Admin: 12/21/18 13:26 Dose: Not Given Aspirin (Aspirin Chewable) 81 mg PO DAILY [facility] Last Admin: 12/21/18 18:53 Dose: 81 mg Dextrose (Dextrose 50% Inj) 0 ml IV STAT PRN; Protocol PRN Reason: Hypoglycemia Protocol Dextrose (Glutose 15) 0 gm PO ONCE PRN; Protocol PRN Reason: Hypoglycemia Protocol Famotidine (Pepcid) 20 mg IVP DAILY [facility] Last Admin: 12/21/18 10:36 Dose: Not Given Glucagon (Glucagen Diagnostic Kit) 0 mg IM STAT PRN; Protocol PRN Reason: Hypoglycemia Protocol Heparin Sodium (Porcine) (Heparin) 5,000 units SC Q8 [facility] Last Admin: 12/21/18 22:40 Dose: Not Given Home Med (Abiraterone Acetate [Zytiga]) 250 mg PO DAILY [facility] Home Med (Bicalutamide [Casodex]) 50 mg PO DAILY [facility] Phenylephrine HCl 30 mg/ (Dextrose) 253 mls @ 20.24 mls/hr IV .[id number] PRN; Protocol PRN Reason: TITRATE PER MD ORDER Last Admin: 12/22/18 06:00 Dose: 180 mcg/min, 91.08 mls/hr Sodium Chloride (Sodium Chloride 0.9%) 1,000 mls @ 80 mls/hr IV .[id number] [facility] Last Admin: 12/21/18 17:40 Dose: 80 mls/hr Cefepime HCl (Maxipime Iv 1 Gm Premix) 1 gm in 50 mls @ 100 mls/hr IVPB Q24H [facility]; Protocol Last Admin: 12/21/18 18:53 Dose: 100 mls/hr Sodium Bicarbonate 150 meq/ (Dextrose) 1,150 mls @ 80 mls/hr IV .[id number] [facility] Stop: 12/22/18 23:30 Last Admin: 12/21/18 20:25 Dose: 80 mls/hr Vasopressin 40 units/ Dextrose 42 mls @ 0.63 mls/hr IV .Q24H JOSÉ MIGUEL; Protocol Last Admin: 12/22/18 06:10 Dose: 0.04 units/min, 2.52 mls/hr Furosemide 100 mg/ Sodium (Chloride) 100 mls @ 2.5 mls/hr IVP .Q24H [facility] Levothyroxine Sodium (Synthroid) 50 mcg PO DAILY@0630 [facility] Last Admin: 12/21/18 14:23 Dose: Not Given Prednisone (Prednisone Tab) 5 mg PO BID [facility] Last Admin: 12/21/18 17:41 Dose: 5 mg Rosuvastatin Calcium (Crestor) 5 mg PO HS [facility] Last Admin: 12/21/18 22:40 Dose: 5 mg Tamsulosin HCl (Flomax) 0.4 mg PO DAILY [facility] Last Admin: 12/21/18 10:58 Dose: 0.4 mg Results - Vital Signs Recent Vital Signs: Last Vital Signs Temp 98.1 F 12/22/18 04:00 Pulse 107 H 12/22/18 06:10 Resp 28 H 12/22/18 06:10 BP 75/54 L 12/22/18 06:10 Pulse Ox 99 12/22/18 05:30 - Labs Result Diagrams: 12/22/18 04:56 12/22/18 05:34 Labs: Laboratory Results - last 24 hr 12/21/18 12/21/18 12/21/18 06:55 06:55 06:59 WBC RBC Hgb Hct MCV MCH MCHC RDW Plt Count MPV Neut % (Auto) Lymph % (Auto) [place] % (Auto) Eos % (Auto) Baso % (Auto) Neut # (Auto) Lymph # (Auto) [place] # (Auto) Eos # (Auto) Baso # (Auto) Neutrophils % (Manual) Band Neutrophils % Lymphocytes % (Manual) Reactive Lymphs % Monocytes % (Manual) Myelocytes % Platelet Estimate Polychromasia Hypochromasia (manual) Poikilocytosis (manual Anisocytosis (manual) Macrocytosis (manual) Tear Drop Cells Ovalocytes Keira Cells Retic Count Haptoglobin PT 24.0 H INR 2.2 APTT 34 Puncture Site pCO2 pO2 HCO3 ABG pH ABG Total CO2 ABG O2 Saturation ABG Base Excess ABG Hemoglobin ABG Carboxyhemoglobin POC ABG HHb (Measured) ABG Methemoglobin Gregory Test ABG Potassium A-a O2 Difference Respiratory Index Hgb O2 Saturation Glucose Lactate Liter Flow FiO2 Crit Value Called To Crit Value Called By Crit Value Read Back Blood Gas Notified Time Sodium Potassium Chloride Carbon Dioxide Anion Gap BUN Creatinine Est GFR ( Amer) Est GFR (Non-Af Amer) POC Glucose (mg/dL) Random Glucose Serum Osmolality Lactic Acid Uric Acid Calcium Phosphorus Magnesium Iron TIBC % Saturation Ferritin Total Bilirubin AST ALT Alkaline Phosphatase Ammonia 30 Total Creatine Kinase 628 H CK-MB (Mass) Troponin I 0.3950 H* NT-Pro-B Natriuret Pep Total Protein Albumin Globulin Albumin/Globulin Ratio Vitamin B12 Folate Procalcitonin Free T4 Free T3 pg/mL TSH 3rd Generation Arterial Blood Potassium Urine Color Urine Clarity Urine pH Ur Specific [place] Urine Protein Urine Glucose (UA) Urine Ketones Urine Blood Urine Nitrate Urine Bilirubin Urine Urobilinogen Ur Leukocyte Esterase Urine WBC (Auto) Urine RBC (Auto) Urine WBC Clumps (Auto) Urine Bacteria Urine Osmolality Ur Random Creatinine U Random Total Protein Ur Random Sodium Stool Occult Blood Urine Opiates Screen Urine Methadone Screen Ur Barbiturates Screen Ur Phencyclidine Scrn Ur Amphetamines Screen U Benzodiazepines Scrn U Oth Cocaine Metabols U Cannabinoids Screen C. difficile Ag & Toxin Blood Type Antibody Screen 12/21/18 12/21/18 12/21/18 07:00 08:51 08:51 WBC RBC Hgb Hct MCV MCH MCHC RDW Plt Count MPV Neut % (Auto) Lymph % (Auto) [place] % (Auto) Eos % (Auto) Baso % (Auto) Neut # (Auto) Lymph # (Auto) [place] # (Auto) Eos # (Auto) Baso # (Auto) Neutrophils % (Manual) Band Neutrophils % Lymphocytes % (Manual) Reactive Lymphs % Monocytes % (Manual) Myelocytes % Platelet Estimate Polychromasia Hypochromasia (manual) Poikilocytosis (manual Anisocytosis (manual) Macrocytosis (manual) Tear Drop Cells Ovalocytes [place] Cells Retic Count Haptoglobin PT INR APTT Puncture Site pCO2 pO2 HCO3 ABG pH ABG Total CO2 ABG O2 Saturation ABG Base Excess ABG Hemoglobin ABG Carboxyhemoglobin POC ABG HHb (Measured) ABG Methemoglobin Gregory Test ABG Potassium A-a O2 Difference Respiratory Index Hgb O2 Saturation Glucose Lactate Liter Flow FiO2 Crit Value Called To Crit Value Called By Crit Value Read Back Blood Gas Notified Time Sodium Potassium Chloride Carbon Dioxide Anion Gap BUN Creatinine Est GFR ( Amer) Est GFR (Non-Af Amer) POC Glucose (mg/dL) 52 L Random Glucose Serum Osmolality Lactic Acid 2.6 H Uric Acid Calcium Phosphorus Magnesium Iron TIBC % Saturation Ferritin Total Bilirubin AST ALT Alkaline Phosphatase Ammonia Total Creatine Kinase CK-MB (Mass) Troponin I NT-Pro-B Natriuret Pep Total Protein Albumin Globulin Albumin/Globulin Ratio Vitamin B12 Folate Procalcitonin Free T4 Free T3 pg/mL TSH 3rd Generation Arterial Blood Potassium Urine Color Urine Clarity Urine pH Ur Specific [place] Urine Protein Urine Glucose (UA) Urine Ketones Urine Blood Urine Nitrate Urine Bilirubin Urine Urobilinogen Ur Leukocyte Esterase Urine WBC (Auto) Urine RBC (Auto) Urine WBC Clumps (Auto) Urine Bacteria Urine Osmolality Ur Random Creatinine U Random Total Protein Ur Random Sodium Stool Occult Blood Urine Opiates Screen Urine Methadone Screen Ur Barbiturates Screen Ur Phencyclidine Scrn Ur Amphetamines Screen U Benzodiazepines Scrn U Oth Cocaine Metabols U Cannabinoids Screen C. difficile Ag & Toxin Blood Type A POSITIVE Antibody Screen Negative 12/21/18 12/21/18 12/21/18 08:51 09:41 12:23 WBC 5.2 RBC 2.25 L Hgb 7.6 L Hct 22.8 L MCV 101.3 H MCH 33.8 H MCHC 33.4 RDW 21.0 H Plt Count 110 L D MPV 10.9 Neut % (Auto) 86.6 H Lymph % (Auto) 3.4 L [place] % (Auto) 8.7 Eos % (Auto) 0.5 Baso % (Auto) 0.8 Neut # (Auto) 4.5 Lymph # (Auto) 0.2 L [place] # (Auto) 0.5 Eos # (Auto) 0.0 Baso # (Auto) 0.0 Neutrophils % (Manual) 73 Band Neutrophils % 13 H* Lymphocytes % (Manual) 6 L Reactive Lymphs % 1 H Monocytes % (Manual) 6 Myelocytes % 1 H Platelet Estimate Slightly decreased L Polychromasia Hypochromasia (manual) Slight Poikilocytosis (manual Slight Anisocytosis (manual) Slight Macrocytosis (manual) Tear Drop Cells Slight Ovalocytes Slight [place] Cells Moderate Retic Count Haptoglobin PT INR APTT Puncture Site pCO2 pO2 HCO3 ABG pH ABG Total CO2 ABG O2 Saturation ABG Base Excess ABG Hemoglobin ABG Carboxyhemoglobin POC ABG HHb (Measured) ABG Methemoglobin Gregory Test ABG Potassium A-a O2 Difference Respiratory Index Hgb O2 Saturation Glucose Lactate Liter Flow FiO2 Crit Value Called To Crit Value Called By Crit Value Read Back Blood Gas Notified Time Sodium Potassium Chloride Carbon Dioxide Anion Gap BUN Creatinine Est GFR ( Amer) Est GFR (Non-Af Amer) POC Glucose (mg/dL) Random Glucose Serum Osmolality Lactic Acid Uric Acid Calcium Phosphorus Magnesium Iron TIBC % Saturation Ferritin Total Bilirubin AST ALT Alkaline Phosphatase Ammonia Total Creatine Kinase CK-MB (Mass) Troponin I 0.3570 H* NT-Pro-B Natriuret Pep Total Protein Albumin Globulin Albumin/Globulin Ratio Vitamin B12 Folate Procalcitonin Free T4 Free T3 pg/mL TSH 3rd Generation Arterial Blood Potassium Urine Color Urine Clarity Urine pH Ur Specific [place] Urine Protein Urine Glucose (UA) Urine Ketones Urine Blood Urine Nitrate Urine Bilirubin Urine Urobilinogen Ur Leukocyte Esterase Urine WBC (Auto) Urine RBC (Auto) Urine WBC Clumps (Auto) Urine Bacteria Urine Osmolality Ur Random Creatinine U Random Total Protein Ur Random Sodium Stool Occult Blood Urine Opiates Screen Urine Methadone Screen Ur Barbiturates Screen Ur Phencyclidine Scrn Ur Amphetamines Screen U Benzodiazepines Scrn U Oth Cocaine Metabols U Cannabinoids Screen C. difficile Ag & Toxin Negative Blood Type Antibody Screen 12/21/18 12/21/18 12/21/18 12:23 12:23 12:23 WBC RBC Hgb Hct MCV MCH MCHC RDW Plt Count MPV Neut % (Auto) Lymph % (Auto) [place] % (Auto) Eos % (Auto) Baso % (Auto) Neut # (Auto) Lymph # (Auto) [place] # (Auto) Eos # (Auto) Baso # (Auto) Neutrophils % (Manual) Band Neutrophils % Lymphocytes % (Manual) Reactive Lymphs % Monocytes % (Manual) Myelocytes % Platelet Estimate Polychromasia Hypochromasia (manual) Poikilocytosis (manual Anisocytosis (manual) Macrocytosis (manual) Tear Drop Cells Ovalocytes [place] Cells Retic Count Haptoglobin PT INR APTT Puncture Site pCO2 pO2 HCO3 ABG pH ABG Total CO2 ABG O2 Saturation ABG Base Excess ABG Hemoglobin ABG Carboxyhemoglobin POC ABG HHb (Measured) ABG Methemoglobin Gregory Test ABG Potassium A-a O2 Difference Respiratory Index Hgb O2 Saturation Glucose Lactate Liter Flow FiO2 Crit Value Called To Crit Value Called By Crit Value Read Back Blood Gas Notified Time Sodium Potassium Chloride Carbon Dioxide Anion Gap BUN Creatinine Est GFR ( Amer) Est GFR (Non-Af Amer) POC Glucose (mg/dL) Random Glucose Serum Osmolality Lactic Acid Uric Acid Calcium Phosphorus Magnesium Iron TIBC % Saturation Ferritin Total Bilirubin AST ALT Alkaline Phosphatase Ammonia Total Creatine Kinase CK-MB (Mass) Troponin I NT-Pro-B Natriuret Pep 89223 H Total Protein Albumin Globulin Albumin/Globulin Ratio Vitamin B12 Folate Procalcitonin 33.72 H Free T4 0.92 Free T3 pg/mL TSH 3rd Generation 39.20 H Arterial Blood Potassium Urine Color Urine Clarity Urine pH Ur Specific [place] Urine Protein Urine Glucose (UA) Urine Ketones Urine Blood Urine Nitrate Urine Bilirubin Urine Urobilinogen Ur Leukocyte Esterase Urine WBC (Auto) Urine RBC (Auto) Urine WBC Clumps (Auto) Urine Bacteria Urine Osmolality Ur Random Creatinine U Random Total Protein Ur Random Sodium Stool Occult Blood Urine Opiates Screen Urine Methadone Screen Ur Barbiturates Screen Ur Phencyclidine Scrn Ur Amphetamines Screen U Benzodiazepines Scrn U Oth Cocaine Metabols U Cannabinoids Screen C. difficile Ag & Toxin Blood Type Antibody Screen 12/21/18 12/21/18 12/21/18 12:55 13:32 14:48 WBC RBC Hgb Hct MCV MCH MCHC RDW Plt Count MPV Neut % (Auto) Lymph % (Auto) [place] % (Auto) Eos % (Auto) Baso % (Auto) Neut # (Auto) Lymph # (Auto) [place] # (Auto) Eos # (Auto) Baso # (Auto) Neutrophils % (Manual) Band Neutrophils % Lymphocytes % (Manual) Reactive Lymphs % Monocytes % (Manual) Myelocytes % Platelet Estimate Polychromasia Hypochromasia (manual) Poikilocytosis (manual Anisocytosis (manual) Macrocytosis (manual) Tear Drop Cells Ovalocytes [place] Cells Retic Count Haptoglobin PT INR APTT Puncture Site Lb pCO2 24 L pO2 92 HCO3 15.6 L ABG pH 7.33 L ABG Total CO2 13.4 L ABG O2 Saturation 99.1 H ABG Base Excess -12.0 L ABG Hemoglobin 7.5 L ABG Carboxyhemoglobin 2.0 H POC ABG HHb (Measured) 0.9 ABG Methemoglobin 1.1 Gregory Test Na ABG Potassium A-a O2 Difference Respiratory Index Hgb O2 Saturation 96.0 Glucose Lactate Liter Flow 3.0 FiO2 Crit Value Called To Dr mcguire Crit Value Called By Ta [place] celery tier Crit Value Read Back Y Blood Gas Notified Time 1258 Sodium Potassium Chloride Carbon Dioxide Anion Gap BUN Creatinine Est GFR ( Amer) Est GFR (Non-Af Amer) POC Glucose (mg/dL) Random Glucose Serum Osmolality Lactic Acid Uric Acid Calcium Phosphorus Magnesium Iron TIBC % Saturation Ferritin Total Bilirubin AST ALT Alkaline Phosphatase Ammonia Total Creatine Kinase CK-MB (Mass) Troponin I NT-Pro-B Natriuret Pep Total Protein Albumin Globulin Albumin/Globulin Ratio Vitamin B12 Folate Procalcitonin Free T4 Free T3 pg/mL TSH 3rd Generation Arterial Blood Potassium Urine Color Yellow Urine Clarity Turbid Urine pH 6.0 Ur Specific [place] 1.014 Urine Protein 2+ H Urine Glucose (UA) Normal Urine Ketones Negative Urine Blood 2+ H Urine Nitrate Negative Urine Bilirubin Negative Urine Urobilinogen Normal Ur Leukocyte Esterase 3+ H Urine WBC (Auto) 2657 H Urine RBC (Auto) 70 H Urine WBC Clumps (Auto) Many H Urine Bacteria Mod H Urine Osmolality 316 Ur Random Creatinine 71.6 U Random Total Protein 980.0 H Ur Random Sodium 108 Stool Occult Blood Urine Opiates Screen Negative Urine Methadone Screen Negative Ur Barbiturates Screen Negative Ur Phencyclidine Scrn Negative Ur Amphetamines Screen Negative U Benzodiazepines Scrn Negative U Oth Cocaine Metabols Negative U Cannabinoids Screen Negative C. difficile Ag & Toxin Blood Type Antibody Screen 12/21/18 12/21/18 12/21/18 15:15 15:15 17:06 WBC RBC Hgb Hct MCV MCH MCHC RDW Plt Count MPV Neut % (Auto) Lymph % (Auto) [place] % (Auto) Eos % (Auto) Baso % (Auto) Neut # (Auto) Lymph # (Auto) [place] # (Auto) Eos # (Auto) Baso # (Auto) Neutrophils % (Manual) Band Neutrophils % Lymphocytes % (Manual) Reactive Lymphs % Monocytes % (Manual) Myelocytes % Platelet Estimate Polychromasia Hypochromasia (manual) Poikilocytosis (manual Anisocytosis (manual) Macrocytosis (manual) Tear Drop Cells Ovalocytes [place] Cells Retic Count Haptoglobin PT INR APTT Puncture Site pCO2 pO2 HCO3 ABG pH ABG Total CO2 ABG O2 Saturation ABG Base Excess ABG Hemoglobin ABG Carboxyhemoglobin POC ABG HHb (Measured) ABG Methemoglobin Gregory Test ABG Potassium A-a O2 Difference Respiratory Index Hgb O2 Saturation Glucose Lactate Liter Flow FiO2 Crit Value Called To Crit Value Called By Crit Value Read Back Blood Gas Notified Time Sodium Potassium Chloride Carbon Dioxide Anion Gap BUN Creatinine Est GFR ( Amer) Est GFR (Non-Af Amer) POC Glucose (mg/dL) Random Glucose Serum Osmolality 317 H Lactic Acid Uric Acid Calcium Phosphorus Magnesium Iron 55 TIBC 211 L % Saturation 26 Ferritin Total Bilirubin AST ALT Alkaline Phosphatase Ammonia Total Creatine Kinase 615 H CK-MB (Mass) 2.65 Troponin I 0.2760 H* NT-Pro-B Natriuret Pep Total Protein Albumin Globulin Albumin/Globulin Ratio Vitamin B12 Folate Procalcitonin Free T4 0.97 Free T3 pg/mL 2.22 L TSH 3rd Generation Arterial Blood Potassium Urine Color Urine Clarity Urine pH Ur Specific [place] Urine Protein Urine Glucose (UA) Urine Ketones Urine Blood Urine Nitrate Urine Bilirubin Urine Urobilinogen Ur Leukocyte Esterase Urine WBC (Auto) Urine RBC (Auto) Urine WBC Clumps (Auto) Urine Bacteria Urine Osmolality Ur Random Creatinine U Random Total Protein Ur Random Sodium Stool Occult Blood Urine Opiates Screen Urine Methadone Screen Ur Barbiturates Screen Ur Phencyclidine Scrn Ur Amphetamines Screen U Benzodiazepines Scrn U Oth Cocaine Metabols U Cannabinoids Screen C. difficile Ag & Toxin Blood Type Antibody Screen 12/21/18 12/21/18 12/21/18 17:06 17:06 17:06 WBC RBC Hgb Hct MCV MCH MCHC RDW Plt Count MPV Neut % (Auto) Lymph % (Auto) [place] % (Auto) Eos % (Auto) Baso % (Auto) Neut # (Auto) Lymph # (Auto) [place] # (Auto) Eos # (Auto) Baso # (Auto) Neutrophils % (Manual) Band Neutrophils % Lymphocytes % (Manual) Reactive Lymphs % Monocytes % (Manual) Myelocytes % Platelet Estimate Polychromasia Hypochromasia (manual) Poikilocytosis (manual Anisocytosis (manual) Macrocytosis (manual) Tear Drop Cells Ovalocytes [place]ira Cells Retic Count 0.4 L Haptoglobin 292.0 H PT INR APTT Puncture Site pCO2 pO2 HCO3 ABG pH ABG Total CO2 ABG O2 Saturation ABG Base Excess ABG Hemoglobin ABG Carboxyhemoglobin POC ABG HHb (Measured) ABG Methemoglobin Gregory Test ABG Potassium A-a O2 Difference Respiratory Index Hgb O2 Saturation Glucose Lactate Liter Flow FiO2 Crit Value Called To Crit Value Called By Crit Value Read Back Blood Gas Notified Time Sodium 137 Potassium 5.1 Chloride 110 H Carbon Dioxide 13 L Anion Gap 20 BUN 70 H Creatinine 4.8 H Est GFR ( Amer) 14 Est GFR (Non-Af Amer) 12 POC Glucose (mg/dL) Random Glucose 162 H D Serum Osmolality Lactic Acid Uric Acid 8.1 Calcium 7.5 L Phosphorus 3.9 Magnesium 2.2 Iron TIBC % Saturation Ferritin 754.0 Total Bilirubin 4.6 H AST 90 H ALT < 6 L D Alkaline Phosphatase 348 H D Ammonia Total Creatine Kinase 577 H CK-MB (Mass) Troponin I NT-Pro-B Natriuret Pep Total Protein 5.3 L Albumin 2.9 L Globulin 2.5 Albumin/Globulin Ratio 1.2 Vitamin B12 669 Folate > 20.0 Procalcitonin Free T4 Free T3 pg/mL TSH 3rd Generation Arterial Blood Potassium Urine Color Urine Clarity Urine pH Ur Specific [place] Urine Protein Urine Glucose (UA) Urine Ketones Urine Blood Urine Nitrate Urine Bilirubin Urine Urobilinogen Ur Leukocyte Esterase Urine WBC (Auto) Urine RBC (Auto) Urine WBC Clumps (Auto) Urine Bacteria Urine Osmolality Ur Random Creatinine U Random Total Protein Ur Random Sodium Stool Occult Blood Urine Opiates Screen Urine Methadone Screen Ur Barbiturates Screen Ur Phencyclidine Scrn Ur Amphetamines Screen U Benzodiazepines Scrn U Oth Cocaine Metabols U Cannabinoids Screen C. difficile Ag & Toxin Blood Type Antibody Screen 12/21/18 12/21/18 12/22/18 20:05 20:24 04:52 WBC RBC Hgb Hct MCV MCH MCHC RDW Plt Count MPV Neut % (Auto) Lymph % (Auto) [place] % (Auto) Eos % (Auto) Baso % (Auto) Neut # (Auto) Lymph # (Auto) [place] # (Auto) Eos # (Auto) Baso # (Auto) Neutrophils % (Manual) Band Neutrophils % Lymphocytes % (Manual) Reactive Lymphs % Monocytes % (Manual) Myelocytes % Platelet Estimate Polychromasia Hypochromasia (manual) Poikilocytosis (manual Anisocytosis (manual) Macrocytosis (manual) Tear Drop Cells Ovalocytes [place]ira Cells Retic Count Haptoglobin PT INR APTT Puncture Site Lb Rb pCO2 18 L* 23 L pO2 116 H 80 HCO3 15.4 L 16.4 L ABG pH 7.37 7.35 ABG Total CO2 11.0 L 13.4 L ABG O2 Saturation 100.1 H 99.1 H ABG Base Excess -12.3 L -10.9 L ABG Hemoglobin ABG Carboxyhemoglobin POC ABG HHb (Measured) ABG Methemoglobin Gregory Test Na Na ABG Potassium 4.1 5.0 A-a O2 Difference 61.0 Respiratory Index 0.5 Hgb O2 Saturation Glucose 73 L 110 Lactate 3.8 H 3.6 H Liter Flow 2.0 3.0 FiO2 28.0 Crit Value Called To Dr posey Crit Value Called By Shane clay Crit Value Read Back Y Blood Gas Notified Time 2024 Sodium 142.0 139.0 Potassium Chloride 113.0 H 104.0 Carbon Dioxide Anion Gap BUN Creatinine Est GFR ( Amer) Est GFR (Non-Af Amer) POC Glucose (mg/dL) Random Glucose Serum Osmolality Lactic Acid Uric Acid Calcium Phosphorus Magnesium Iron TIBC % Saturation Ferritin Total Bilirubin AST ALT Alkaline Phosphatase Ammonia Total Creatine Kinase CK-MB (Mass) Troponin I NT-Pro-B Natriuret Pep Total Protein Albumin Globulin Albumin/Globulin Ratio Vitamin B12 Folate Procalcitonin Free T4 Free T3 pg/mL TSH 3rd Generation Arterial Blood Potassium 4.1 5.0 Urine Color Urine Clarity Urine pH Ur Specific [place] Urine Protein Urine Glucose (UA) Urine Ketones Urine Blood Urine Nitrate Urine Bilirubin Urine Urobilinogen Ur Leukocyte Esterase Urine WBC (Auto) Urine RBC (Auto) Urine WBC Clumps (Auto) Urine Bacteria Urine Osmolality Ur Random Creatinine U Random Total Protein Ur Random Sodium Stool Occult Blood Negative Urine Opiates Screen Urine Methadone Screen Ur Barbiturates Screen Ur Phencyclidine Scrn Ur Amphetamines Screen U Benzodiazepines Scrn U Oth Cocaine Metabols U Cannabinoids Screen C. difficile Ag & Toxin Blood Type Antibody Screen 12/22/18 12/22/18 12/22/18 04:56 04:56 05:34 WBC 7.6 RBC 3.12 L Hgb 10.1 L D Hct 30.8 L MCV 98.9 H D MCH 32.3 H MCHC 32.6 L RDW 21.2 H Plt Count 112 L MPV 10.6 Neut % (Auto) 93.2 H Lymph % (Auto) 1.8 L [place] % (Auto) 4.5 Eos % (Auto) 0.3 Baso % (Auto) 0.2 Neut # (Auto) 7.1 H Lymph # (Auto) 0.1 L [place] # (Auto) 0.3 Eos # (Auto) 0.0 Baso # (Auto) 0.0 Neutrophils % (Manual) 88 H Band Neutrophils % 7 H Lymphocytes % (Manual) 2 L Reactive Lymphs % Monocytes % (Manual) 3 Myelocytes % Platelet Estimate Slightly decreased L Polychromasia Slight Hypochromasia (manual) Poikilocytosis (manual Anisocytosis (manual) Moderate Macrocytosis (manual) Moderate Tear Drop Cells Ovalocytes Keira Cells Retic Count Haptoglobin PT INR APTT Puncture Site pCO2 pO2 HCO3 ABG pH ABG Total CO2 ABG O2 Saturation ABG Base Excess ABG Hemoglobin ABG Carboxyhemoglobin POC ABG HHb (Measured) ABG Methemoglobin Gregory Test ABG Potassium A-a O2 Difference Respiratory Index Hgb O2 Saturation Glucose Lactate Liter Flow FiO2 Crit Value Called To Crit Value Called By Crit Value Read Back Blood Gas Notified Time Sodium 139 Potassium 4.9 Chloride 107 Carbon Dioxide 14 L Anion Gap 22 H BUN 73 H Creatinine 5.7 H Est GFR ( Amer) 12 Est GFR (Non-Af Amer) 10 POC Glucose (mg/dL) Random Glucose 112 H D Serum Osmolality Lactic Acid 4.1 H* Uric Acid Calcium 8.0 L Phosphorus 3.9 Magnesium 2.3 Iron TIBC % Saturation Ferritin Total Bilirubin 6.2 H AST 108 H ALT 20 L D Alkaline Phosphatase 439 H D Ammonia Total Creatine Kinase CK-MB (Mass) Troponin I NT-Pro-B Natriuret Pep Total Protein 5.6 L Albumin 3.1 L Globulin 2.6 Albumin/Globulin Ratio 1.2 Vitamin B12 Folate Procalcitonin Free T4 Free T3 pg/mL TSH 3rd Generation Arterial Blood Potassium Urine Color Urine Clarity Urine pH Ur Specific [place] Urine Protein Urine Glucose (UA) Urine Ketones Urine Blood Urine Nitrate Urine Bilirubin Urine Urobilinogen Ur Leukocyte Esterase Urine WBC (Auto) Urine RBC (Auto) Urine WBC Clumps (Auto) Urine Bacteria Urine Osmolality Ur Random Creatinine U Random Total Protein Ur Random Sodium Stool Occult Blood Urine Opiates Screen Urine Methadone Screen Ur Barbiturates Screen Ur Phencyclidine Scrn Ur Amphetamines Screen U Benzodiazepines Scrn U Oth Cocaine Metabols U Cannabinoids Screen C. 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, Liver Cirrhosis, Hypothyroidism, Umbilical hernia, OA, brought to ED this morning after being found down by family for unknown period of time and with opiate pain pills scattered around him, nephrology being consulted for acute renal failure; Patient is verbalizing somewhat at time of encounter but repeatedly becomes somnolent (though arousable); he cannot give much history; patient was given [place]an in the [place] with improvement in mental status; Currently hypotensive on phenylephrine; has thus far received ~2L total NS; clinicially consistent with severe sepsis/septic shock likely due to UTI with bandemia and very high procalcitonin level; Acute renal failure consistent with ATN and possibly pyelonephritis with urine micro showing packed WBC's and fair number of coarse granular casts; given marked increase in serum creatinine from baseline, renal failure has likely progressed since several days; has modest increased anion gap metabolic acidosis from renal failure and mild lactic acidosis; potassium at higher end of normal; repeat labs did show some improvement in serum creatinine so we should continue IVF; CHF status noted but not currently overloaded with lungs clear (CXR image also reviewed), lack of peripheral edema and patient only on nasal cannula O2; gill just inserted at time of encounter (not draining much); No urgent indication for HD at this time though consent obtained from via telephone should HD be needed; -Continue IVF w/ D5W w/ 150 meq sodium bicarb at 150 cc/hr; -ID consult recommended due to concern for complicated UTI/pyelo; -Avoid nephrotoxic agents; Critical care time assessing patient and discussing with CCM team > 35 minutes.
[2018-12-21] MEDS: Sodium Bicarbonate 8.4% 150 MEQ in Dextrose 5% In Water 1,000 ML IV SCH (20:25)
[2018-12-21 20:26] LABS: ARTERIAL BLOOD GAS HCO3 15.4 mmol/L (21-28); ARTERIAL BLOOD GAS O2 SAT 100.1 % (95-98); ARTERIAL BLOOD GAS PCO2 18 mm/Hg (35-45); ARTERIAL BLOOD GAS PH 7.37 (7.35-7.45); ARTERIAL BLOOD GAS PO2 116 mm/Hg (80-100)
--- NOTE | 2018-12-21 21:36 | CP.PCM.HP ---
Present on Admission - Present on Admission Any Indicators Present on Admission: No Past Patient History - Infectious Disease Hx of Infectious Diseases: None - Tetanus Immunizations Tetanus Immunization: Unknown - Past Medical History & Family History Past Medical History?: Yes - Past Social History Smoking Status: Former Smoker Alcohol: Other Drugs: Denies, Inhalants Home Situation {Lives}: With Family - CARDIAC Hx Hypertension: Yes - PULMONARY Hx Respiratory Disorders: No - NEUROLOGICAL Hx Neurological Disorder: No - HEENT Hx HEENT Problems: No - RENAL Hx Renal Failure: Yes - ENDOCRINE/METABOLIC Hx Endocrine Disorders: No - HEMATOLOGICAL/ONCOLOGICAL Hx Cancer: Yes (stage 4 prostate) - INTEGUMENTARY Hx Dermatological Problems: No - MUSCULOSKELETAL/RHEUMATOLOGICAL Hx Arthritis: Yes - GASTROINTESTINAL Hx Gall Bladder Disease: Yes Hx Gastritis: Yes - GENITOURINARY/GYNECOLOGICAL Hx Genitourinary Disorders: No - PSYCHIATRIC Hx Substance Use: No - SURGICAL HISTORY Hx Surgeries: Yes Other/Comment: hernia repair 03/20/17 - ANESTHESIA Hx Anesthesia: Yes Hx Anesthesia Reactions: No Hx Malignant Hyperthermia: No Meds Allergies/Adverse Reactions: Allergies Allergy/AdvReac Type Severity Reaction Status Date / Time No Known Allergies Allergy Verified 12/21/18 02:37 Results - Vital Signs Recent Vital Signs: Last Vital Signs Temp 95.5 F L 12/21/18 15:54 Pulse 109 H 12/21/18 19:20 Resp 32 H 12/21/18 19:20 BP 81/51 L 12/21/18 19:18 Pulse Ox 62 L 12/21/18 19:20 - Labs Result Diagrams: 12/21/18 12:23 12/21/18 17:06 Labs: Laboratory Results - last 24 hr 12/21/18 12/21/18 12/21/18 03:11 03:11 04:56 WBC 5.5 D RBC 2.28 L Hgb 7.6 L D Hct 22.9 L MCV 100.8 H D MCH 33.4 H MCHC 33.1 RDW 20.7 H Plt Count 72 L D MPV 9.8 Neut % (Auto) 87.3 H Lymph % (Auto) 3.9 L [place] % (Auto) 7.7 Eos % (Auto) 0.5 Baso % (Auto) 0.6 Neut # (Auto) 4.8 Lymph # (Auto) 0.2 L [place] # (Auto) 0.4 Eos # (Auto) 0.0 Baso # (Auto) 0.0 Neutrophils % (Manual) 84 H Band Neutrophils % 2 Lymphocytes % (Manual) 6 L Reactive Lymphs % Monocytes % (Manual) 8 Myelocytes % Platelet Estimate Slightly decreased L Hypochromasia (manual) Poikilocytosis (manual Anisocytosis (manual) Tear Drop Cells Ovalocytes [place] Cells Retic Count Haptoglobin PT INR APTT Puncture Site pCO2 pO2 HCO3 ABG pH ABG Total CO2 ABG O2 Saturation ABG Base Excess ABG Hemoglobin ABG Carboxyhemoglobin POC ABG HHb (Measured) ABG Methemoglobin Gregory Test ABG Potassium A-a O2 Difference Respiratory Index Hgb O2 Saturation Glucose Lactate Liter Flow FiO2 Crit Value Called To Crit Value Called By Crit Value Read Back Blood Gas Notified Time Sodium 140 Potassium 4.9 Chloride 109 H Carbon Dioxide 15 L Anion Gap 21 H BUN 74 H Creatinine 5.5 H Est GFR ( Amer) 12 Est GFR (Non-Af Amer) 10 POC Glucose (mg/dL) Random Glucose 62 L D Serum Osmolality Lactic Acid 2.7 H Uric Acid Calcium 8.3 L Phosphorus 3.6 Magnesium 2.4 H Iron TIBC % Saturation Ferritin Total Bilirubin 5.0 H AST 76 H D ALT 15 L D Alkaline Phosphatase 469 H D Ammonia Total Creatine Kinase CK-MB (Mass) Troponin I NT-Pro-B Natriuret Pep Total Protein 5.7 L Albumin 3.2 L D Globulin 2.5 Albumin/Globulin Ratio 1.3 Vitamin B12 Folate Procalcitonin Free T4 Free T3 pg/mL TSH 3rd Generation Arterial Blood Potassium Urine Color Urine Clarity Urine pH Ur Specific [place] Urine Protein Urine Glucose (UA) Urine Ketones Urine Blood Urine Nitrate Urine Bilirubin Urine Urobilinogen Ur Leukocyte Esterase Urine WBC (Auto) Urine RBC (Auto) Urine WBC Clumps (Auto) Urine Bacteria Urine Osmolality Ur Random Creatinine U Random Total Protein Ur Random Sodium Stool Occult Blood Urine Opiates Screen Urine Methadone Screen Ur Barbiturates Screen Ur Phencyclidine Scrn Ur Amphetamines Screen U Benzodiazepines Scrn U Oth Cocaine Metabols U Cannabinoids Screen C. difficile Ag & Toxin Blood Type Antibody Screen 12/21/18 12/21/18 12/21/18 06:55 06:55 06:59 WBC RBC Hgb Hct MCV MCH MCHC RDW Plt Count MPV Neut % (Auto) Lymph % (Auto) [place] % (Auto) Eos % (Auto) Baso % (Auto) Neut # (Auto) Lymph # (Auto) [place] # (Auto) Eos # (Auto) Baso # (Auto) Neutrophils % (Manual) Band Neutrophils % Lymphocytes % (Manual) Reactive Lymphs % Monocytes % (Manual) Myelocytes % Platelet Estimate Hypochromasia (manual) Poikilocytosis (manual Anisocytosis (manual) Tear Drop Cells Ovalocytes [place] Cells Retic Count Haptoglobin PT 24.0 H INR 2.2 APTT 34 Puncture Site pCO2 pO2 HCO3 ABG pH ABG Total CO2 ABG O2 Saturation ABG Base Excess ABG Hemoglobin ABG Carboxyhemoglobin POC ABG HHb (Measured) ABG Methemoglobin Gregory Test ABG Potassium A-a O2 Difference Respiratory Index Hgb O2 Saturation Glucose Lactate Liter Flow FiO2 Crit Value Called To Crit Value Called By Crit Value Read Back Blood Gas Notified Time Sodium Potassium Chloride Carbon Dioxide Anion Gap BUN Creatinine Est GFR ( Amer) Est GFR (Non-Af Amer) POC Glucose (mg/dL) Random Glucose Serum Osmolality Lactic Acid Uric Acid Calcium Phosphorus Magnesium Iron TIBC % Saturation Ferritin Total Bilirubin AST ALT Alkaline Phosphatase Ammonia 30 Total Creatine Kinase 628 H CK-MB (Mass) Troponin I 0.3950 H* NT-Pro-B Natriuret Pep Total Protein Albumin Globulin Albumin/Globulin Ratio Vitamin B12 Folate Procalcitonin Free T4 Free T3 pg/mL TSH 3rd Generation Arterial Blood Potassium Urine Color Urine Clarity Urine pH Ur Specific [place] Urine Protein Urine Glucose (UA) Urine Ketones Urine Blood Urine Nitrate Urine Bilirubin Urine Urobilinogen Ur Leukocyte Esterase Urine WBC (Auto) Urine RBC (Auto) Urine WBC Clumps (Auto) Urine Bacteria Urine Osmolality Ur Random Creatinine U Random Total Protein Ur Random Sodium Stool Occult Blood Urine Opiates Screen Urine Methadone Screen Ur Barbiturates Screen Ur Phencyclidine Scrn Ur Amphetamines Screen U Benzodiazepines Scrn U Oth Cocaine Metabols U Cannabinoids Screen C. difficile Ag & Toxin Blood Type Antibody Screen 12/21/18 12/21/18 12/21/18 07:00 08:51 08:51 WBC RBC Hgb Hct MCV MCH MCHC RDW Plt Count MPV Neut % (Auto) Lymph % (Auto) [place] % (Auto) Eos % (Auto) Baso % (Auto) Neut # (Auto) Lymph # (Auto) [place] # (Auto) Eos # (Auto) Baso # (Auto) Neutrophils % (Manual) Band Neutrophils % Lymphocytes % (Manual) Reactive Lymphs % Monocytes % (Manual) Myelocytes % Platelet Estimate Hypochromasia (manual) Poikilocytosis (manual Anisocytosis (manual) Tear Drop Cells Ovalocytes [place]ira Cells Retic Count Haptoglobin PT INR APTT Puncture Site pCO2 pO2 HCO3 ABG pH ABG Total CO2 ABG O2 Saturation ABG Base Excess ABG Hemoglobin ABG Carboxyhemoglobin POC ABG HHb (Measured) ABG Methemoglobin Gregory Test ABG Potassium A-a O2 Difference Respiratory Index Hgb O2 Saturation Glucose Lactate Liter Flow FiO2 Crit Value Called To Crit Value Called By Crit Value Read Back Blood Gas Notified Time Sodium Potassium Chloride Carbon Dioxide Anion Gap BUN Creatinine Est GFR ( Amer) Est GFR (Non-Af Amer) POC Glucose (mg/dL) 52 L Random Glucose Serum Osmolality Lactic Acid 2.6 H Uric Acid Calcium Phosphorus Magnesium Iron TIBC % Saturation Ferritin Total Bilirubin AST ALT Alkaline Phosphatase Ammonia Total Creatine Kinase CK-MB (Mass) Troponin I NT-Pro-B Natriuret Pep Total Protein Albumin Globulin Albumin/Globulin Ratio Vitamin B12 Folate Procalcitonin Free T4 Free T3 pg/mL TSH 3rd Generation Arterial Blood Potassium Urine Color Urine Clarity Urine pH Ur Specific [place] Urine Protein Urine Glucose (UA) Urine Ketones Urine Blood Urine Nitrate Urine Bilirubin Urine Urobilinogen Ur Leukocyte Esterase Urine WBC (Auto) Urine RBC (Auto) Urine WBC Clumps (Auto) Urine Bacteria Urine Osmolality Ur Random Creatinine U Random Total Protein Ur Random Sodium Stool Occult Blood Urine Opiates Screen Urine Methadone Screen Ur Barbiturates Screen Ur Phencyclidine Scrn Ur Amphetamines Screen U Benzodiazepines Scrn U Oth Cocaine Metabols U Cannabinoids Screen C. difficile Ag & Toxin Blood Type A POSITIVE Antibody Screen Negative 12/21/18 12/21/18 12/21/18 08:51 09:41 12:23 WBC 5.2 RBC 2.25 L Hgb 7.6 L Hct 22.8 L MCV 101.3 H MCH 33.8 H MCHC 33.4 RDW 21.0 H Plt Count 110 L D MPV 10.9 Neut % (Auto) 86.6 H Lymph % (Auto) 3.4 L [place] % (Auto) 8.7 Eos % (Auto) 0.5 Baso % (Auto) 0.8 Neut # (Auto) 4.5 Lymph # (Auto) 0.2 L [place] # (Auto) 0.5 Eos # (Auto) 0.0 Baso # (Auto) 0.0 Neutrophils % (Manual) 73 Band Neutrophils % 13 H* Lymphocytes % (Manual) 6 L Reactive Lymphs % 1 H Monocytes % (Manual) 6 Myelocytes % 1 H Platelet Estimate Slightly decreased L Hypochromasia (manual) Slight Poikilocytosis (manual Slight Anisocytosis (manual) Slight Tear Drop Cells Slight Ovalocytes Slight [place] Cells Moderate Retic Count Haptoglobin PT INR APTT Puncture Site pCO2 pO2 HCO3 ABG pH ABG Total CO2 ABG O2 Saturation ABG Base Excess ABG Hemoglobin ABG Carboxyhemoglobin POC ABG HHb (Measured) ABG Methemoglobin Gregory Test ABG Potassium A-a O2 Difference Respiratory Index Hgb O2 Saturation Glucose Lactate Liter Flow FiO2 Crit Value Called To Crit Value Called By Crit Value Read Back Blood Gas Notified Time Sodium Potassium Chloride Carbon Dioxide Anion Gap BUN Creatinine Est GFR ( Amer) Est GFR (Non-Af Amer) POC Glucose (mg/dL) Random Glucose Serum Osmolality Lactic Acid Uric Acid Calcium Phosphorus Magnesium Iron TIBC % Saturation Ferritin Total Bilirubin AST ALT Alkaline Phosphatase Ammonia Total Creatine Kinase CK-MB (Mass) Troponin I 0.3570 H* NT-Pro-B Natriuret Pep Total Protein Albumin Globulin Albumin/Globulin Ratio Vitamin B12 Folate Procalcitonin Free T4 Free T3 pg/mL TSH 3rd Generation Arterial Blood Potassium Urine Color Urine Clarity Urine pH Ur Specific [place] Urine Protein Urine Glucose (UA) Urine Ketones Urine Blood Urine Nitrate Urine Bilirubin Urine Urobilinogen Ur Leukocyte Esterase Urine WBC (Auto) Urine RBC (Auto) Urine WBC Clumps (Auto) Urine Bacteria Urine Osmolality Ur Random Creatinine U Random Total Protein Ur Random Sodium Stool Occult Blood Urine Opiates Screen Urine Methadone Screen Ur Barbiturates Screen Ur Phencyclidine Scrn Ur Amphetamines Screen U Benzodiazepines Scrn U Oth Cocaine Metabols U Cannabinoids Screen C. difficile Ag & Toxin Negative Blood Type Antibody Screen 12/21/18 12/21/18 12/21/18 12:23 12:23 12:23 WBC RBC Hgb Hct MCV MCH MCHC RDW Plt Count MPV Neut % (Auto) Lymph % (Auto) [place] % (Auto) Eos % (Auto) Baso % (Auto) Neut # (Auto) Lymph # (Auto) [place] # (Auto) Eos # (Auto) Baso # (Auto) Neutrophils % (Manual) Band Neutrophils % Lymphocytes % (Manual) Reactive Lymphs % Monocytes % (Manual) Myelocytes % Platelet Estimate Hypochromasia (manual) Poikilocytosis (manual Anisocytosis (manual) Tear Drop Cells Ovalocytes [place] Cells Retic Count Haptoglobin PT INR APTT Puncture Site pCO2 pO2 HCO3 ABG pH ABG Total CO2 ABG O2 Saturation ABG Base Excess ABG Hemoglobin ABG Carboxyhemoglobin POC ABG HHb (Measured) ABG Methemoglobin Gregory Test ABG Potassium A-a O2 Difference Respiratory Index Hgb O2 Saturation Glucose Lactate Liter Flow FiO2 Crit Value Called To Crit Value Called By Crit Value Read Back Blood Gas Notified Time Sodium Potassium Chloride Carbon Dioxide Anion Gap BUN Creatinine Est GFR ( Amer) Est GFR (Non-Af Amer) POC Glucose (mg/dL) Random Glucose Serum Osmolality Lactic Acid Uric Acid Calcium Phosphorus Magnesium Iron TIBC % Saturation Ferritin Total Bilirubin AST ALT Alkaline Phosphatase Ammonia Total Creatine Kinase CK-MB (Mass) Troponin I NT-Pro-B Natriuret Pep 13002 H Total Protein Albumin Globulin Albumin/Globulin Ratio Vitamin B12 Folate Procalcitonin 33.72 H Free T4 0.92 Free T3 pg/mL TSH 3rd Generation 39.20 H Arterial Blood Potassium Urine Color Urine Clarity Urine pH Ur Specific [place] Urine Protein Urine Glucose (UA) Urine Ketones Urine Blood Urine Nitrate Urine Bilirubin Urine Urobilinogen Ur Leukocyte Esterase Urine WBC (Auto) Urine RBC (Auto) Urine WBC Clumps (Auto) Urine Bacteria Urine Osmolality Ur Random Creatinine U Random Total Protein Ur Random Sodium Stool Occult Blood Urine Opiates Screen Urine Methadone Screen Ur Barbiturates Screen Ur Phencyclidine Scrn Ur Amphetamines Screen U Benzodiazepines Scrn U Oth Cocaine Metabols U Cannabinoids Screen C. difficile Ag & Toxin Blood Type Antibody Screen 12/21/18 12/21/18 12/21/18 12:55 13:32 14:48 WBC RBC Hgb Hct MCV MCH MCHC RDW Plt Count MPV Neut % (Auto) Lymph % (Auto) [place] % (Auto) Eos % (Auto) Baso % (Auto) Neut # (Auto) Lymph # (Auto) [place] # (Auto) Eos # (Auto) Baso # (Auto) Neutrophils % (Manual) Band Neutrophils % Lymphocytes % (Manual) Reactive Lymphs % Monocytes % (Manual) Myelocytes % Platelet Estimate Hypochromasia (manual) Poikilocytosis (manual Anisocytosis (manual) Tear Drop Cells Ovalocytes [place]ira Cells Retic Count Haptoglobin PT INR APTT Puncture Site Lb pCO2 24 L pO2 92 HCO3 15.6 L ABG pH 7.33 L ABG Total CO2 13.4 L ABG O2 Saturation 99.1 H ABG Base Excess -12.0 L ABG Hemoglobin 7.5 L ABG Carboxyhemoglobin 2.0 H POC ABG HHb (Measured) 0.9 ABG Methemoglobin 1.1 Gregory Test Na ABG Potassium A-a O2 Difference Respiratory Index Hgb O2 Saturation 96.0 Glucose Lactate Liter Flow 3.0 FiO2 Crit Value Called To Dr mcguire Crit Value Called By Ta [place] combatant diver officer Crit Value Read Back Y Blood Gas Notified Time 1258 Sodium Potassium Chloride Carbon Dioxide Anion Gap BUN Creatinine Est GFR ( Amer) Est GFR (Non-Af Amer) POC Glucose (mg/dL) Random Glucose Serum Osmolality Lactic Acid Uric Acid Calcium Phosphorus Magnesium Iron TIBC % Saturation Ferritin Total Bilirubin AST ALT Alkaline Phosphatase Ammonia Total Creatine Kinase CK-MB (Mass) Troponin I NT-Pro-B Natriuret Pep Total Protein Albumin Globulin Albumin/Globulin Ratio Vitamin B12 Folate Procalcitonin Free T4 Free T3 pg/mL TSH 3rd Generation Arterial Blood Potassium Urine Color Yellow Urine Clarity Turbid Urine pH 6.0 Ur Specific [place] 1.014 Urine Protein 2+ H Urine Glucose (UA) Normal Urine Ketones Negative Urine Blood 2+ H Urine Nitrate Negative Urine Bilirubin Negative Urine Urobilinogen Normal Ur Leukocyte Esterase 3+ H Urine WBC (Auto) 2657 H Urine RBC (Auto) 70 H Urine WBC Clumps (Auto) Many H Urine Bacteria Mod H Urine Osmolality 316 Ur Random Creatinine 71.6 U Random Total Protein 980.0 H Ur Random Sodium 108 Stool Occult Blood Urine Opiates Screen Negative Urine Methadone Screen Negative Ur Barbiturates Screen Negative Ur Phencyclidine Scrn Negative Ur Amphetamines Screen Negative U Benzodiazepines Scrn Negative U Oth Cocaine Metabols Negative U Cannabinoids Screen Negative C. difficile Ag & Toxin Blood Type Antibody Screen 12/21/18 12/21/18 12/21/18 15:15 15:15 17:06 WBC RBC Hgb Hct MCV MCH MCHC RDW Plt Count MPV Neut % (Auto) Lymph % (Auto) [place] % (Auto) Eos % (Auto) Baso % (Auto) Neut # (Auto) Lymph # (Auto) [place] # (Auto) Eos # (Auto) Baso # (Auto) Neutrophils % (Manual) Band Neutrophils % Lymphocytes % (Manual) Reactive Lymphs % Monocytes % (Manual) Myelocytes % Platelet Estimate Hypochromasia (manual) Poikilocytosis (manual Anisocytosis (manual) Tear Drop Cells Ovalocytes [place] Cells Retic Count Haptoglobin PT INR APTT Puncture Site pCO2 pO2 HCO3 ABG pH ABG Total CO2 ABG O2 Saturation ABG Base Excess ABG Hemoglobin ABG Carboxyhemoglobin POC ABG HHb (Measured) ABG Methemoglobin Gregory Test ABG Potassium A-a O2 Difference Respiratory Index Hgb O2 Saturation Glucose Lactate Liter Flow FiO2 Crit Value Called To Crit Value Called By Crit Value Read Back Blood Gas Notified Time Sodium Potassium Chloride Carbon Dioxide Anion Gap BUN Creatinine Est GFR ( Amer) Est GFR (Non-Af Amer) POC Glucose (mg/dL) Random Glucose Serum Osmolality 317 H Lactic Acid Uric Acid Calcium Phosphorus Magnesium Iron 55 TIBC 211 L % Saturation 26 Ferritin Total Bilirubin AST ALT Alkaline Phosphatase Ammonia Total Creatine Kinase 615 H CK-MB (Mass) 2.65 Troponin I 0.2760 H* NT-Pro-B Natriuret Pep Total Protein Albumin Globulin Albumin/Globulin Ratio Vitamin B12 Folate Procalcitonin Free T4 0.97 Free T3 pg/mL 2.22 L TSH 3rd Generation Arterial Blood Potassium Urine Color Urine Clarity Urine pH Ur Specific [place] Urine Protein Urine Glucose (UA) Urine Ketones Urine Blood Urine Nitrate Urine Bilirubin Urine Urobilinogen Ur Leukocyte Esterase Urine WBC (Auto) Urine RBC (Auto) Urine WBC Clumps (Auto) Urine Bacteria Urine Osmolality Ur Random Creatinine U Random Total Protein Ur Random Sodium Stool Occult Blood Urine Opiates Screen Urine Methadone Screen Ur Barbiturates Screen Ur Phencyclidine Scrn Ur Amphetamines Screen U Benzodiazepines Scrn U Oth Cocaine Metabols U Cannabinoids Screen C. difficile Ag & Toxin Blood Type Antibody Screen 12/21/18 12/21/18 12/21/18 17:06 17:06 17:06 WBC RBC Hgb Hct MCV MCH MCHC RDW Plt Count MPV Neut % (Auto) Lymph % (Auto) [place] % (Auto) Eos % (Auto) Baso % (Auto) Neut # (Auto) Lymph # (Auto) [place] # (Auto) Eos # (Auto) Baso # (Auto) Neutrophils % (Manual) Band Neutrophils % Lymphocytes % (Manual) Reactive Lymphs % Monocytes % (Manual) Myelocytes % Platelet Estimate Hypochromasia (manual) Poikilocytosis (manual Anisocytosis (manual) Tear Drop Cells Ovalocytes [place] Cells Retic Count 0.4 L Haptoglobin 292.0 H PT INR APTT Puncture Site pCO2 pO2 HCO3 ABG pH ABG Total CO2 ABG O2 Saturation ABG Base Excess ABG Hemoglobin ABG Carboxyhemoglobin POC ABG HHb (Measured) ABG Methemoglobin Gregory Test ABG Potassium A-a O2 Difference Respiratory Index Hgb O2 Saturation Glucose Lactate Liter Flow FiO2 Crit Value Called To Crit Value Called By Crit Value Read Back Blood Gas Notified Time Sodium 137 Potassium 5.1 Chloride 110 H Carbon Dioxide 13 L Anion Gap 20 BUN 70 H Creatinine 4.8 H Est GFR ( Amer) 14 Est GFR (Non-Af Amer) 12 POC Glucose (mg/dL) Random Glucose 162 H D Serum Osmolality Lactic Acid Uric Acid 8.1 Calcium 7.5 L Phosphorus 3.9 Magnesium 2.2 Iron TIBC % Saturation Ferritin 754.0 Total Bilirubin 4.6 H AST 90 H ALT < 6 L D Alkaline Phosphatase 348 H D Ammonia Total Creatine Kinase 577 H CK-MB (Mass) Troponin I NT-Pro-B Natriuret Pep Total Protein 5.3 L Albumin 2.9 L Globulin 2.5 Albumin/Globulin Ratio 1.2 Vitamin B12 669 Folate > 20.0 Procalcitonin Free T4 Free T3 pg/mL TSH 3rd Generation Arterial Blood Potassium Urine Color Urine Clarity Urine pH Ur Specific [place] Urine Protein Urine Glucose (UA) Urine Ketones Urine Blood Urine Nitrate Urine Bilirubin Urine Urobilinogen Ur Leukocyte Esterase Urine WBC (Auto) Urine RBC (Auto) Urine WBC Clumps (Auto) Urine Bacteria Urine Osmolality Ur Random Creatinine U Random Total Protein Ur Random Sodium Stool Occult Blood Urine Opiates Screen Urine Methadone Screen Ur Barbiturates Screen Ur Phencyclidine Scrn Ur Amphetamines Screen U Benzodiazepines Scrn U Oth Cocaine Metabols U Cannabinoids Screen C. difficile Ag & Toxin Blood Type Antibody Screen 12/21/18 12/21/18 20:05 20:24 WBC RBC Hgb Hct MCV MCH MCHC RDW Plt Count MPV Neut % (Auto) Lymph % (Auto) [place] % (Auto) Eos % (Auto) Baso % (Auto) Neut # (Auto) Lymph # (Auto) [place] # (Auto) Eos # (Auto) Baso # (Auto) Neutrophils % (Manual) Band Neutrophils % Lymphocytes % (Manual) Reactive Lymphs % Monocytes % (Manual) Myelocytes % Platelet Estimate Hypochromasia (manual) Poikilocytosis (manual Anisocytosis (manual) Tear Drop Cells Ovalocytes [place] Cells Retic Count Haptoglobin PT INR APTT Puncture Site Lb pCO2 18 L* pO2 116 H HCO3 15.4 L ABG pH 7.37 ABG Total CO2 11.0 L ABG O2 Saturation 100.1 H ABG Base Excess -12.3 L ABG Hemoglobin ABG Carboxyhemoglobin POC ABG HHb (Measured) ABG Methemoglobin Gregory Test Na ABG Potassium 4.1 A-a O2 Difference 61.0 Respiratory Index 0.5 Hgb O2 Saturation Glucose 73 L Lactate 3.8 H Liter Flow 2.0 FiO2 28.0 Crit Value Called To Dr posey Crit Value Called By Shane clay Crit Value Read Back Y Blood Gas Notified Time 2024 Sodium 142.0 Potassium Chloride 113.0 H Carbon Dioxide Anion Gap BUN Creatinine Est GFR ( Amer) Est GFR (Non-Af Amer) POC Glucose (mg/dL) Random Glucose Serum Osmolality Lactic Acid Uric Acid Calcium Phosphorus Magnesium Iron TIBC % Saturation Ferritin Total Bilirubin AST ALT Alkaline Phosphatase Ammonia Total Creatine Kinase CK-MB (Mass) Troponin I NT-Pro-B Natriuret Pep Total Protein Albumin Globulin Albumin/Globulin Ratio Vitamin B12 Folate Procalcitonin Free T4 Free T3 pg/mL TSH 3rd Generation Arterial Blood Potassium 4.1 Urine Color Urine Clarity Urine pH Ur Specific [place] Urine Protein Urine Glucose (UA) Urine Ketones Urine Blood Urine Nitrate Urine Bilirubin Urine Urobilinogen Ur Leukocyte Esterase Urine WBC (Auto) Urine RBC (Auto) Urine WBC Clumps (Auto) Urine Bacteria Urine Osmolality Ur Random Creatinine U Random Total Protein Ur Random Sodium Stool Occult Blood Negative Urine Opiates Screen Urine Methadone Screen Ur Barbiturates Screen Ur Phencyclidine Scrn Ur Amphetamines Screen U Benzodiazepines Scrn U Oth Cocaine Metabols U Cannabinoids Screen C. difficile Ag & Toxin Blood Type Antibody Screen
[2018-12-22] MEDS: Phenylephrine 30 MG in Dextrose 5% In Water 250 ML IV PRN ×4 (03:00→13:03)
[2018-12-22] MEDS ORDERED: Albumin Human 25% (12.5 gm/50 ml) IV ONE (04:39)
[2018-12-22 04:58] LABS: ARTERIAL BLOOD GAS HCO3 16.4 mmol/L (21-28); ARTERIAL BLOOD GAS O2 SAT 99.1 % (95-98); ARTERIAL BLOOD GAS PCO2 23 mm/Hg (35-45); ARTERIAL BLOOD GAS PH 7.35 (7.35-7.45); ARTERIAL BLOOD GAS PO2 80 mm/Hg (80-100); ARTERIAL BLOOD GAS TCO2 13.4 mmol/L (22-28)
[2018-12-22 05:05] LABS: BASO % 0.2 % (0.0-2.0); EOS % 0.3 % (0.0-4.0); HEMOGLOBIN 10.1 g/dL (12.0-18.0); LYMPH # 0.1 K/uL (1.0-4.3); LYMPH % 1.8 % (20.0-40.0); MEAN CELL VOLUME 98.9 fL (80.0-94.0); MEAN CORPUSCULAR HEMOGLOBIN 32.3 pg (27.0-31.0); MEAN CORPUSCULAR HGB CONC 32.6 g/dL (33.0-37.0); MEAN PLATELET VOLUME 10.6 fL (7.2-11.7); MONO # 0.3 K/uL (0.0-0.8); MONO % 4.5 % (0.0-10.0); NEUT # 7.1 K/uL (1.8-7.0); NEUT % 93.2 % (50.0-75.0); NRBC % 0.1 % (0.0-2.0); PLATELET COUNT 112 K/uL (130-400); RBC 3.12 Mil/uL (4.40-5.90); RED CELL DISTRIBUTION WIDTH 21.2 % (11.5-14.5); WHITE BLOOD COUNT 7.6 K/uL (4.8-10.8)
--- NOTE | 2018-12-22 05:32 | HP ---
CHIEF COMPLAINT: Drug overdose, altered mental status. 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 On the day of admission, night time, found the patient to be lethargic and there were pain pills spilled around the floor. The amount of pills nobody knew. 911 was called in. The patient was found by ambulance to be lethargic with pinpoint pupils, desaturating with low blood pressure systolic. The patient was given 0.4 mg of Narcan and the patient woke up. He was given bolus of 500 mL of fluids. The patient was brought into the emergency room. The patient was drowsy again, weak, tired. The patient is seen by me in ICU. He has been admitted to ICU because of persistently low blood pressure. The patient is mumbling, but he is awake and he is alert, but he is not able to answer questions and lot of his talk is not clear. There are no further details available other than the fact that the patient is on the monitor in ICU. He is in rapid atrial fibrillation with heart rate of around 110. He is awake and alert. He is not clear about expressing his thoughts. ALLERGIES: UNKNOWN ALLERGIES. CURRENT MEDICATIONS: At home, he is on tramadol, prednisone, Flomax, Zocor, Zantac, Protonix, Synthroid, Lasix, Bentyl, Casodex, amiodarone, Zytiga. SOCIAL HISTORY: Ex-smoker, ex-ETOH user. PAST MEDICAL HISTORY: As per exam. PHYSICAL EXAMINATION: GENERAL: An elderly male who is in distress, weak, tachycardic, tachypneic. VITAL SIGNS: Blood pressure 81/51, pulse 111, respiratory rate 30, temperature 98. SKIN: Dry, pale, poor turgor. HEENT: Positive pallor. Negative jaundice, extraocular movements. The patient is not able to follow commands. Oral cavity, edentulous oral cavity. Poor oral hygiene. NECK: Supple. No JVD. No lymph node. No thyromegaly. CHEST: Chest wall, bilateral symmetrical expansion, there is gynecomastia. LUNGS: Bilaterally clear. No rales. No rhonchi. CARDIOVASCULAR SYSTEM: PMI not localized. S1 and S2 plus S3 positive. Irregularly irregular. ABDOMEN: Soft, nontender, distended. Bowel sounds are present. Positive shifting dullness. RECTAL: Unable to perform because the patient is dyspneic and hemodynamically unstable. CENTRAL NERVOUS SYSTEM: Awake, alert. Moves all extremities. ASSESSMENT: 1. Altered mental status. Rule out hepatic encephalopathy, it could be overdose from opiate medication for his prostate cancer. It could be dehydration. It could be toxic metabolic encephalopathy from urinary tract infection. 2. Congestive heart failure, chronic. The patient is not in respiratory distress. 3. Rapid atrial fibrillation. The patient has cardiomyopathy. 4. Prostate cancer, stage IV. PLAN: Admit. Detailed orders are written. The patient is for blood transfusion. Antibiotics have been started. Batista culture. He is for monitoring. Gregory Thrasher MD
[2018-12-22] MEDS ORDERED: Furosemide 100 MG in Sodium Chloride 0.9% 90 ML IVP SCH (05:45)
[2018-12-22] MEDS: Vasopressin 40 UNITS in Dextrose 5% In Water 40 ML IV SCH ×2 (06:10→21:44)
[2018-12-22 06:11] LABS: ANISOCYTOSIS MODERATE; BANDS 7 % (0-2); LYMPHOCYTE 2 % (20-40); MONOCYTE 3 % (0-10); NEUTROPHIL 88 % (50-75); PLATELET ESTIMATE SLIGHTLY DECREASED (NORMAL); POLYCHROMIC SLIGHT; TOTAL CELLS COUNTED 100
[2018-12-22] MEDS: Levothyroxine 50 MCG TAB PO SCH (06:30)
[2018-12-22 06:31] LABS: ALB/GLOB RATIO 1.2 (1.0-2.1); ALBUMIN 3.1 g/dL (3.5-5.0)
--- NOTE | 2018-12-22 08:42 | RAD ---
Chest x-ray single frontal view History: Fever. Comparison: 12/21/2018 Findings: Worsening focal confluent consolidative changes at the right lung base which may represent worsening infiltrate. Mild patchy increased markings at the left lung base. Cardiomegaly. Dense sclerosis throughout the visualized osseous structures concerning for diffuse metastatic disease. Impression: Worsening focal confluent consolidative changes at the right lung base which may represent worsening infiltrate. Mild patchy increased markings at the left lung base. Cardiomegaly. Dense sclerosis throughout the visualized osseous structures concerning for diffuse metastatic disease.
[2018-12-22] MEDS ORDERED: Sodium Bicarbonate (8.4%) 50 Meq Syringe IVP SCH (08:45)
[2018-12-22] MEDS ORDERED: DOBUTamine 500mg/250ml D5W 500 MG/250 ML BAG IV SCH (09:00)
[2018-12-22] MEDS: Sodium Bicarbonate (8.4%) 50 mEq Vial IVP SCH ×4 (10:14→20:46)
[2018-12-22] MEDS: DOPamine 400mg/250ml D5W 400 MG/250 ML BAG IV PRN (11:29)
[2018-12-22] MEDS: Sodium Bicarbonate 8.4% 150 MEQ in Dextrose 5% In Water 1,000 ML IV SCH (12:36)
--- NOTE | 2018-12-22 14:12 | CP.PCM.PN ---
Subjective - Date & Time of Evaluation Date of Evaluation: 12/22/18 Time of Evaluation: 14:00 - Subjective Subjective: Patient seen and examined Placed on BiPAP last night for shortness of breath Status post transfusion of 2 units packed RBCs On multiple pressors for hypotension Plan is for dialysis today Objective - Vital Signs/Intake and Output Vital Signs (last 24 hours): Temp Pulse Resp BP Pulse Ox 96.6 F L 112 H 17 114/73 98 12/22/18 11:50 12/22/18 13:52 12/22/18 13:52 12/22/18 13:52 12/22/18 13:52 Intake and Output: 12/22/18 12/22/18 06:59 18:59 Intake Total 3047.4 1526.4 Output Total 25 Balance 3022.4 1526.4 - Medications Medications: Current Medications Aspirin (Aspirin Chewable) 81 mg PO DAILY [facility] Last Admin: 12/22/18 10:33 Dose: 81 mg Dextrose (Dextrose 50% Inj) 0 ml IV STAT PRN; Protocol PRN Reason: Hypoglycemia Protocol Dextrose (Glutose 15) 0 gm PO ONCE PRN; Protocol PRN Reason: Hypoglycemia Protocol Glucagon (Glucagen Diagnostic Kit) 0 mg IM STAT PRN; Protocol PRN Reason: Hypoglycemia Protocol Heparin Sodium (Porcine) (Heparin) 5,000 units SC Q8 [facility] Last Admin: 12/22/18 13:57 Dose: 5,000 units Home Med (Bicalutamide [Casodex]) 50 mg PO DAILY [facility] Hydrocortisone Sodium Succinate (Solu-Cortef) 100 mg IV Q8H [facility] Phenylephrine HCl 30 mg/ (Dextrose) 253 mls @ 20.24 mls/hr IV .[id number] PRN; Protocol PRN Reason: TITRATE PER MD ORDER Last Titration: 12/22/18 14:06 Dose: 0 mcg/min, 0 mls/hr Cefepime HCl (Maxipime Iv 1 Gm Premix) 1 gm in 50 mls @ 100 mls/hr IVPB Q24H [facility]; Protocol Last Admin: 12/21/18 18:53 Dose: 100 mls/hr Sodium Bicarbonate 150 meq/ (Dextrose) 1,150 mls @ 80 mls/hr IV .[id number] [facility] Stop: 12/22/18 23:30 Last Admin: 12/22/18 12:36 Dose: 80 mls/hr Vasopressin 40 units/ Dextrose 42 mls @ 0.63 mls/hr IV .Q24H [facility]; Protocol Last Admin: 12/22/18 06:10 Dose: 0.04 units/min, 2.52 mls/hr Dopamine HCl/Dextrose (Dopamine 400mg/250ml D5w) 400 mg in 250 mls @ 17.929 mls/hr IV .[id number] PRN; Protocol PRN Reason: TITRATE PER MD ORDER Last Admin: 12/22/18 11:29 Dose: 7 mcg/kg/min, 17.929 mls/hr Dobutamine HCl/Dextrose (Dobutamine/Dextrose 5% 500mg/250ml) 500 mg in 250 mls @ 5.123 mls/hr IV .Q24H [facility]; Protocol Last Admin: 12/22/18 10:20 Dose: 2.5 mcg/kg/min, 5.123 mls/hr Levothyroxine Sodium (Synthroid) 50 mcg PO DAILY@0630 [facility] Last Admin: 12/22/18 06:30 Dose: Not Given Pantoprazole Sodium (Protonix Inj) 40 mg IVP Q12H [facility] Last Admin: 12/22/18 08:32 Dose: 40 mg Rosuvastatin Calcium (Crestor) 5 mg PO HS [facility] Last Admin: 12/21/18 22:40 Dose: 5 mg Sodium Bicarbonate (Sodium Bicarbonate Tab) 1,300 mg PO Q6 [facility] Last Admin: 12/22/18 11:29 Dose: 1,300 mg Sodium Bicarbonate (Sodium Bicarbonate 8.4% (50 Meq) Vial) 50 meq IVP Q4H [facility] Last Admin: 12/22/18 13:57 Dose: 50 meq Tamsulosin HCl (Flomax) 0.4 mg PO DAILY [facility] Last Admin: 12/22/18 10:33 Dose: 0.4 mg - Labs Labs: 12/22/18 04:56 12/22/18 05:34 PT 24.0 SECONDS (9.7-12.2) H 12/21/18 06:59 INR 2.2 12/21/18 06:59 APTT 34 SECONDS (21-34) 12/21/18 06:59 - Head Exam Head Exam: ATRAUMATIC, NORMOCEPHALIC - Neck Exam Neck Exam: Normal Inspection - Respiratory Exam Respiratory Exam: Decreased Breath Sounds - Cardiovascular Exam Cardiovascular Exam: REGULAR RHYTHM - GI/Abdominal Exam GI & Abdominal Exam: Soft Assessment and Plan (1) Respiratory insufficiency Assessment & Plan: Continue patient on BiPAP Hemodialysis as tolerated as patient is hypotensive and on multiple pressors Continue antibiotics for urosepsis Status: Acute (2) MAHIN (acute kidney injury) Status: Acute (3) Anemia Status: Acute (4) Opiate overdose Status: Acute (5) UTI (urinary tract infection) Status: Acute (6) Acute exacerbation of CHF (congestive heart failure) Status: Acute
[2018-12-22 14:52] LABS: VENOUS BLOOD GAS BASE EXCESS -6.9 mmol/L (0.0-2.0); VENOUS BLOOD GAS PCO2 36 mmHg (40-60); VENOUS BLOOD GAS PO2 37 mm/Hg (30-55); VENOUS BLOOD PH 7.32 (7.32-7.43)
--- NOTE | 2018-12-22 15:06 | CP.CCUPN ---
CCU Subjective - Physician Review Subjective (Free Text): Patient admitted to ICU for MAHIN and hypercapenic respiratory failure and heart failure. Patient seen and examined at bedside. 12/22/18 14:52 Critical Care Time Spent (in minutes): 39 CCU Objective - Vital Signs / Intake & Output Vital Signs (Last 4 hours): Vital Signs Temp Pulse Resp BP BP Pulse Ox 12/22/18 13:52 112 H 17 114/73 98 12/22/18 13:37 114 H 16 106/70 96 12/22/18 13:22 113 H 19 100/73 93 L 12/22/18 13:08 113 H 17 94/76 L 94 L 12/22/18 13:03 111 H 18 92/65 L 94 L 12/22/18 13:00 116 H 20 95 12/22/18 12:52 118 H 15 92/65 L 98 12/22/18 12:37 115 H 14 93/72 L 96 12/22/18 12:22 116 H 16 98/66 L 94 L 12/22/18 12:19 116 H 12/22/18 12:14 107/52 L 12/22/18 12:07 116 H 20 100/62 95 12/22/18 12:00 113 H 20 91 L 12/22/18 11:52 108 H 20 96/57 L 93 L 12/22/18 11:50 96.6 F L 12/22/18 11:37 105 H 21 101/70 92 L 12/22/18 11:29 104 H 22 101/73 97 12/22/18 11:22 110 H 24 101/73 95 12/22/18 11:21 107 H 30 H 105/76 100 12/22/18 11:07 104 H 26 H 102/71 12/22/18 11:00 105 H 19 97 Intake and Output (Last 8hrs): Intake & Output 12/21/18 12/22/18 12/22/18 22:59 06:59 14:59 Intake Total 1263 2493.4 1583.4 Output Total 500 25 Balance 763 2468.4 1583.4 Weight 156 lb 15.506 oz 150 lb 9.211 oz Intake: IV 438 506 581 Intake, IV Amount 765 1237.4 952.4 Left Hand 240 640 5.0 RAC 2 240 RIJ Port 30 RIJ Port 2 17.9 RIJ Port 3 5.1 Right Antecubital 65 480 Right Femoral HD cath 220 595 400 Blue Port Right Femoral HD cath 2.4 12.0 Blue Port Y-site Right Internal Jugular 2.4 Oral 60 50 Blood Product 0 650 Red Blood Cells Cpd As1 325 Lr Unit [id number] Red Blood Cells Cpd As1 0 325 Lr Unit [id number] Other 100 Red Blood Cells Cpd As1 50 Lr Unit [id number] Red Blood Cells Cpd As1 50 Lr Unit [id number] Output: Urine 500 25 Straight 200 Urethral (Orellana) 25 Urine, Voided 300 Other: # Bowel Movements 1 1 - Physical Exam Head: Positive for: Atraumatic, Normocephalic Pupils: Positive for: PERRL Conjunctiva: Positive for: Normal Mouth: Positive for: Moist Mucous Membranes Neck: Positive for: Normal Range of Motion Respiratory/Chest: Positive for: Clear to Auscultation, Good Air Exchange. Negative for: Respiratory Distress, Accessory Muscle Use Cardiovascular: Positive for: Regular Rate and Rhythm, Normal S1, S2 Abdomen: Positive for: Distention, Normal Bowel Sounds. Negative for: Tenderness, Peritoneal Signs Upper Extremity: Positive for: Normal Inspection. Negative for: Cyanosis Lower Extremity: Positive for: Normal Inspection. Negative for: Edema Psychiatric: Positive for: Alert, Oriented x 3 - Medications Active Medications: Active Medications Generic Name Dose Route Start Last Admin Trade Name Freq PRN Reason Stop Dose Admin Aspirin 81 mg 12/21/18 18:00 12/22/18 10:33 Aspirin Chewable PO 81 mg DAILY JOSÉ MIGUEL Administration Dextrose 0 ml 12/21/18 12:38 Dextrose 50% Inj IV STAT PRN Hypoglycemia Protocol Protocol Dextrose 0 gm 12/21/18 12:38 Glutose 15 PO ONCE PRN Hypoglycemia Protocol Protocol Glucagon 0 mg 12/21/18 12:38 Glucagen Diagnostic Kit IM STAT PRN Hypoglycemia Protocol Protocol Heparin Sodium (Porcine) 5,000 units 12/21/18 22:00 12/22/18 13:57 Heparin SC 5,000 units Q8 JOSÉ MIGUEL Administration Home Med 50 mg 12/21/18 10:00 Bicalutamide [Casodex] PO DAILY JOSÉ MIGUEL Hydrocortisone Sodium Succinate 100 mg 12/22/18 17:00 Solu-Cortef IV Q8H ON LICENSE OF [facility] Cefepime HCl 1 gm in 50 mls @ 100 mls/hr 12/21/18 17:45 12/21/18 18:53 Maxipime Iv 1 Gm Premix IVPB 100 mls/hr Q24H JOSÉ MIGUEL Administration Protocol Sodium Bicarbonate 150 meq/ 1,150 mls @ 80 mls/hr 12/21/18 18:45 12/22/18 12:36 Dextrose IV 12/22/18 23:30 80 mls/hr .[id number] JOSÉ MIGUEL Administration Vasopressin 40 units/ Dextrose 42 mls @ 0.63 mls/hr 12/22/18 05:15 12/22/18 06:10 IV 0.04 units/min .Q24H JOSÉ MIGUEL 2.52 mls/hr Administration Protocol 0.01 UNITS/MIN Dopamine HCl/Dextrose 400 mg in 250 mls @ 17.929 mls/hr 12/22/18 09:00 12/22/18 14:17 Dopamine 400mg/250ml D5w IV 5 mcg/kg/min .[id number] PRN 12.806 mls/hr TITRATE PER MD ORDER Titration Protocol 7 MCG/KG/MIN Dobutamine HCl/Dextrose 500 mg in 250 mls @ 5.123 mls/hr 12/22/18 09:00 12/22/18 10:20 Dobutamine/Dextrose 5% 500mg/250ml IV 2.5 mcg/kg/min .Q24H JOSÉ MIGUEL 5.123 mls/hr Administration Protocol 2.5 MCG/KG/MIN Levothyroxine Sodium 50 mcg 12/21/18 08:00 12/22/18 06:30 Synthroid PO Not Given DAILY@0630 JOSÉ MIGUEL Pantoprazole Sodium 40 mg 12/22/18 09:00 12/22/18 08:32 Protonix Inj IVP 40 mg Q12H JOSÉ MIGUEL Administration Rosuvastatin Calcium 5 mg 12/21/18 22:00 12/21/18 22:40 Crestor PO 5 mg HS JOSÉ MIGUEL Administration Sodium Bicarbonate 1,300 mg 12/22/18 12:00 12/22/18 11:29 Sodium Bicarbonate Tab PO 1,300 mg Q6 JOSÉ MIGUEL Administration Sodium Bicarbonate 50 meq 12/22/18 08:45 12/22/18 13:57 Sodium Bicarbonate 8.4% (50 Meq) Vial IVP 50 meq Q4H JOSÉ MIGUEL Administration Tamsulosin HCl 0.4 mg 12/21/18 10:00 12/22/18 10:33 Flomax PO 0.4 mg DAILY JOSÉ MIGUEL Administration - Patient Studies Lab Studies: Microbiology Studies 12/21/18 14:48 Urine Culture - Preliminary Urine,Orellana Gram Negative Carlos 12/21/18 08:51 MRSA Culture (Admit) - Final Nose MRSA NOT DETECTED 12/21/18 05:53 Blood Culture - Preliminary Blood-Venous NO GROWTH AFTER 24 HOURS 12/21/18 05:53 Blood Culture - Preliminary Blood-Venous NO GROWTH AFTER 24 HOURS Lab Studies 12/22/18 12/22/18 12/22/18 Range/Units 12:07 08:34 05:34 WBC (4.8-10.8) K/uL RBC (4.40-5.90) Mil/uL Hgb (12.0-18.0) g/dL Hct (35.0-51.0) % MCV (80.0-94.0) fL MCH (27.0-31.0) pg MCHC (33.0-37.0) g/dL RDW (11.5-14.5) % Plt Count (130-400) K/uL MPV (7.2-11.7) fL Neut % (Auto) (50.0-75.0) % Lymph % (Auto) (20.0-40.0) % [place] % (Auto) (0.0-10.0) % Eos % (Auto) (0.0-4.0) % Baso % (Auto) (0.0-2.0) % Neut # (Auto) (1.8-7.0) K/uL Lymph # (Auto) (1.0-4.3) K/uL [place] # (Auto) (0.0-0.8) K/uL Eos # (Auto) (0.0-0.7) K/uL Baso # (Auto) (0.0-0.2) K/uL Neutrophils % (Manual) (50-75) % Band Neutrophils % (0-2) % Lymphocytes % (Manual) (20-40) % Monocytes % (Manual) (0-10) % Platelet Estimate (NORMAL) Polychromasia Anisocytosis (manual) Macrocytosis (manual) Retic Count (0.5-1.5) % Haptoglobin (30.0-200.0) mg/dL Puncture Site pCO2 (35-45) mm/Hg pO2 (80-100) mm/Hg HCO3 (21-28) mmol/L ABG pH (7.35-7.45) ABG Total CO2 (22-28) mmol/L ABG O2 Saturation (95-98) % ABG Base Excess (-2.0-3.0) mmol/L Gregory Test ABG Potassium (3.6-5.2) mmol/L A-a O2 Difference mm/Hg Respiratory Index Glucose (75-110) mg/dl Lactate (0.7-2.1) mmol/L Liter Flow FiO2 % Crit Value Called To Crit Value Called By Crit Value Read Back Blood Gas Notified Time Sodium 139 (132-148) mmol/L Potassium 4.9 (3.6-5.2) mmol/L Chloride 107 (98-107) mmol/L Carbon Dioxide 14 L (22-30) mmol/L Anion Gap 22 H (10-20) BUN 73 H (9-20) mg/dL Creatinine 5.7 H (0.8-1.5) mg/dL Est GFR ( Amer) 12 Est GFR (Non-Af Amer) 10 Random Glucose 112 H D (75-110) mg/dL Serum Osmolality (272-300) mosm/kg Lactic Acid 2.9 H 2.4 H (0.7-2.1) mmol/L Uric Acid (3.5-8.5) mg/dL Calcium 8.0 L (8.6-10.4) mg/dl Phosphorus 3.9 (2.5-4.5) mg/dL Magnesium 2.3 (1.6-2.3) mg/dL Iron (49-181) ug/dL TIBC (250-450) ug/dL % Saturation (20-55) Ferritin ng/mL Total Bilirubin 6.2 H (0.2-1.3) mg/dL AST 108 H (17-59) U/L ALT 20 L D (21-72) U/L Alkaline Phosphatase 439 H D (38-126) U/L Total Creatine Kinase (55-170) U/L CK-MB (Mass) (0.0-3.38) ng/mL Troponin I (0.00-0.120) ng/mL Total Protein 5.6 L (6.3-8.3) g/dL Albumin 3.1 L (3.5-5.0) g/dL Globulin 2.6 (2.2-3.9) gm/dL Albumin/Globulin Ratio 1.2 (1.0-2.1) Vitamin B12 (239-931) pg/mL Folate ng/mL Procalcitonin (0.19-0.49) NG/ML Free T4 (0.78-2.19) ng/dL Free T3 pg/mL (2.77-5.27) pg/mL Arterial Blood Potassium (3.6-5.2) mmol/L Urine Color (YELLOW) Urine Clarity (Clear) Urine pH (5.0-8.0) Ur Specific [place] (1.003-1.030) Urine Protein (NEGATIVE) mg/dL Urine Glucose (UA) (Normal) mg/dL Urine Ketones (NEGATIVE) mg/dL Urine Blood (NEGATIVE) Urine Nitrate (NEGATIVE) Urine Bilirubin (NEGATIVE) Urine Urobilinogen (0.2-1.0) mg/dL Ur Leukocyte Esterase (Negative) Bibi/uL Urine WBC (Auto) (0-5) /hpf Urine RBC (Auto) (0-3) /hpf Urine WBC Clumps (Auto) (NONE) /hpf Urine Bacteria (<OCC) Urine Osmolality (300-1000) mosm/kg Ur Random Creatinine mg/dL U Random Total Protein (0.0-12.0) mg/dL Ur Random Sodium mmol/L Urine Chloride (32-290) mmol/L Stool Occult Blood (NEGATIVE) Urine Opiates Screen (NEGATIVE) Urine Methadone Screen (NEGATIVE) Ur Barbiturates Screen (NEGATIVE) Ur Phencyclidine Scrn (NEGATIVE) Ur Amphetamines Screen (NEGATIVE) U Benzodiazepines Scrn (NEGATIVE) U Oth Cocaine Metabols (NEGATIVE) U Cannabinoids Screen (NEGATIVE) Blood Type Antibody Screen 12/22/18 12/22/18 12/22/18 Range/Units 04:56 04:56 04:52 WBC 7.6 (4.8-10.8) K/uL RBC 3.12 L (4.40-5.90) Mil/uL Hgb 10.1 L D (12.0-18.0) g/dL Hct 30.8 L (35.0-51.0) % MCV 98.9 H D (80.0-94.0) fL MCH 32.3 H (27.0-31.0) pg MCHC 32.6 L (33.0-37.0) g/dL RDW 21.2 H (11.5-14.5) % Plt Count 112 L (130-400) K/uL MPV 10.6 (7.2-11.7) fL Neut % (Auto) 93.2 H (50.0-75.0) % Lymph % (Auto) 1.8 L (20.0-40.0) % [place] % (Auto) 4.5 (0.0-10.0) % Eos % (Auto) 0.3 (0.0-4.0) % Baso % (Auto) 0.2 (0.0-2.0) % Neut # (Auto) 7.1 H (1.8-7.0) K/uL Lymph # (Auto) 0.1 L (1.0-4.3) K/uL [place] # (Auto) 0.3 (0.0-0.8) K/uL Eos # (Auto) 0.0 (0.0-0.7) K/uL Baso # (Auto) 0.0 (0.0-0.2) K/uL Neutrophils % (Manual) 88 H (50-75) % Band Neutrophils % 7 H (0-2) % Lymphocytes % (Manual) 2 L (20-40) % Monocytes % (Manual) 3 (0-10) % Platelet Estimate Slightly decreased L (NORMAL) Polychromasia Slight Anisocytosis (manual) Moderate Macrocytosis (manual) Moderate Retic Count (0.5-1.5) % Haptoglobin (30.0-200.0) mg/dL Puncture Site Rb pCO2 23 L (35-45) mm/Hg pO2 80 (80-100) mm/Hg HCO3 16.4 L (21-28) mmol/L ABG pH 7.35 (7.35-7.45) ABG Total CO2 13.4 L (22-28) mmol/L ABG O2 Saturation 99.1 H (95-98) % ABG Base Excess -10.9 L (-2.0-3.0) mmol/L Gregory Test Na ABG Potassium 5.0 (3.6-5.2) mmol/L A-a O2 Difference mm/Hg Respiratory Index Glucose 110 (75-110) mg/dl Lactate 3.6 H (0.7-2.1) mmol/L Liter Flow 3.0 FiO2 % Crit Value Called To Crit Value Called By Crit Value Read Back Blood Gas Notified Time Sodium 139.0 (132-148) mmol/L Potassium (3.6-5.2) mmol/L Chloride 104.0 (98-107) mmol/L Carbon Dioxide (22-30) mmol/L Anion Gap (10-20) BUN (9-20) mg/dL Creatinine (0.8-1.5) mg/dL Est GFR ( Amer) Est GFR (Non-Af Amer) Random Glucose (75-110) mg/dL Serum Osmolality (272-300) mosm/kg Lactic Acid 4.1 H* (0.7-2.1) mmol/L Uric Acid (3.5-8.5) mg/dL Calcium (8.6-10.4) mg/dl Phosphorus (2.5-4.5) mg/dL Magnesium (1.6-2.3) mg/dL Iron (49-181) ug/dL TIBC (250-450) ug/dL % Saturation (20-55) Ferritin ng/mL Total Bilirubin (0.2-1.3) mg/dL AST (17-59) U/L ALT (21-72) U/L Alkaline Phosphatase (38-126) U/L Total Creatine Kinase (55-170) U/L CK-MB (Mass) (0.0-3.38) ng/mL Troponin I (0.00-0.120) ng/mL Total Protein (6.3-8.3) g/dL Albumin (3.5-5.0) g/dL Globulin (2.2-3.9) gm/dL Albumin/Globulin Ratio (1.0-2.1) Vitamin B12 (239-931) pg/mL Folate ng/mL Procalcitonin (0.19-0.49) NG/ML Free T4 (0.78-2.19) ng/dL Free T3 pg/mL (2.77-5.27) pg/mL Arterial Blood Potassium 5.0 (3.6-5.2) mmol/L Urine Color (YELLOW) Urine Clarity (Clear) Urine pH (5.0-8.0) Ur Specific [place] (1.003-1.030) Urine Protein (NEGATIVE) mg/dL Urine Glucose (UA) (Normal) mg/dL Urine Ketones (NEGATIVE) mg/dL Urine Blood (NEGATIVE) Urine Nitrate (NEGATIVE) Urine Bilirubin (NEGATIVE) Urine Urobilinogen (0.2-1.0) mg/dL Ur Leukocyte Esterase (Negative) Bibi/uL Urine WBC (Auto) (0-5) /hpf Urine RBC (Auto) (0-3) /hpf Urine WBC Clumps (Auto) (NONE) /hpf Urine Bacteria (<OCC) Urine Osmolality (300-1000) mosm/kg Ur Random Creatinine mg/dL U Random Total Protein (0.0-12.0) mg/dL Ur Random Sodium mmol/L Urine Chloride (32-290) mmol/L Stool Occult Blood (NEGATIVE) Urine Opiates Screen (NEGATIVE) Urine Methadone Screen (NEGATIVE) Ur Barbiturates Screen (NEGATIVE) Ur Phencyclidine Scrn (NEGATIVE) Ur Amphetamines Screen (NEGATIVE) U Benzodiazepines Scrn (NEGATIVE) U Oth Cocaine Metabols (NEGATIVE) U Cannabinoids Screen (NEGATIVE) Blood Type Antibody Screen 12/21/18 12/21/18 12/21/18 Range/Units 20:24 20:05 17:06 WBC (4.8-10.8) K/uL RBC (4.40-5.90) Mil/uL Hgb (12.0-18.0) g/dL Hct (35.0-51.0) % MCV (80.0-94.0) fL MCH (27.0-31.0) pg MCHC (33.0-37.0) g/dL RDW (11.5-14.5) % Plt Count (130-400) K/uL MPV (7.2-11.7) fL Neut % (Auto) (50.0-75.0) % Lymph % (Auto) (20.0-40.0) % [place] % (Auto) (0.0-10.0) % Eos % (Auto) (0.0-4.0) % Baso % (Auto) (0.0-2.0) % Neut # (Auto) (1.8-7.0) K/uL Lymph # (Auto) (1.0-4.3) K/uL [place] # (Auto) (0.0-0.8) K/uL Eos # (Auto) (0.0-0.7) K/uL Baso # (Auto) (0.0-0.2) K/uL Neutrophils % (Manual) (50-75) % Band Neutrophils % (0-2) % Lymphocytes % (Manual) (20-40) % Monocytes % (Manual) (0-10) % Platelet Estimate (NORMAL) Polychromasia Anisocytosis (manual) Macrocytosis (manual) Retic Count (0.5-1.5) % Haptoglobin (30.0-200.0) mg/dL Puncture Site Lb pCO2 18 L* (35-45) mm/Hg pO2 116 H (80-100) mm/Hg HCO3 15.4 L (21-28) mmol/L ABG pH 7.37 (7.35-7.45) ABG Total CO2 11.0 L (22-28) mmol/L ABG O2 Saturation 100.1 H (95-98) % ABG Base Excess -12.3 L (-2.0-3.0) mmol/L Gregory Test Na ABG Potassium 4.1 (3.6-5.2) mmol/L A-a O2 Difference 61.0 mm/Hg Respiratory Index 0.5 Glucose 73 L (75-110) mg/dl Lactate 3.8 H (0.7-2.1) mmol/L Liter Flow 2.0 FiO2 28.0 % Crit Value Called To Dr posey Crit Value Called By Shane clay Crit Value Read Back Y Blood Gas Notified Time 2024 Sodium 142.0 137 (132-148) mmol/L Potassium 5.1 (3.6-5.2) mmol/L Chloride 113.0 H 110 H (98-107) mmol/L Carbon Dioxide 13 L (22-30) mmol/L Anion Gap 20 (10-20) BUN 70 H (9-20) mg/dL Creatinine 4.8 H (0.8-1.5) mg/dL Est GFR ( Amer) 14 Est GFR (Non-Af Amer) 12 Random Glucose 162 H D (75-110) mg/dL Serum Osmolality (272-300) mosm/kg Lactic Acid (0.7-2.1) mmol/L Uric Acid 8.1 (3.5-8.5) mg/dL Calcium 7.5 L (8.6-10.4) mg/dl Phosphorus 3.9 (2.5-4.5) mg/dL Magnesium 2.2 (1.6-2.3) mg/dL Iron (49-181) ug/dL TIBC (250-450) ug/dL % Saturation (20-55) Ferritin 754.0 ng/mL Total Bilirubin 4.6 H (0.2-1.3) mg/dL AST 90 H (17-59) U/L ALT < 6 L D (21-72) U/L Alkaline Phosphatase 348 H D (38-126) U/L Total Creatine Kinase 577 H (55-170) U/L CK-MB (Mass) (0.0-3.38) ng/mL Troponin I (0.00-0.120) ng/mL Total Protein 5.3 L (6.3-8.3) g/dL Albumin 2.9 L (3.5-5.0) g/dL Globulin 2.5 (2.2-3.9) gm/dL Albumin/Globulin Ratio 1.2 (1.0-2.1) Vitamin B12 669 (239-931) pg/mL Folate > 20.0 ng/mL Procalcitonin (0.19-0.49) NG/ML Free T4 (0.78-2.19) ng/dL Free T3 pg/mL (2.77-5.27) pg/mL Arterial Blood Potassium 4.1 (3.6-5.2) mmol/L Urine Color (YELLOW) Urine Clarity (Clear) Urine pH (5.0-8.0) Ur Specific [place] (1.003-1.030) Urine Protein (NEGATIVE) mg/dL Urine Glucose (UA) (Normal) mg/dL Urine Ketones (NEGATIVE) mg/dL Urine Blood (NEGATIVE) Urine Nitrate (NEGATIVE) Urine Bilirubin (NEGATIVE) Urine Urobilinogen (0.2-1.0) mg/dL Ur Leukocyte Esterase (Negative) Bibi/uL Urine WBC (Auto) (0-5) /hpf Urine RBC (Auto) (0-3) /hpf Urine WBC Clumps (Auto) (NONE) /hpf Urine Bacteria (<OCC) Urine Osmolality (300-1000) mosm/kg Ur Random Creatinine mg/dL U Random Total Protein (0.0-12.0) mg/dL Ur Random Sodium mmol/L Urine Chloride (32-290) mmol/L Stool Occult Blood Negative (NEGATIVE) Urine Opiates Screen (NEGATIVE) Urine Methadone Screen (NEGATIVE) Ur Barbiturates Screen (NEGATIVE) Ur Phencyclidine Scrn (NEGATIVE) Ur Amphetamines Screen (NEGATIVE) U Benzodiazepines Scrn (NEGATIVE) U Oth Cocaine Metabols (NEGATIVE) U Cannabinoids Screen (NEGATIVE) Blood Type Antibody Screen 12/21/18 12/21/18 12/21/18 Range/Units 17:06 17:06 17:06 WBC (4.8-10.8) K/uL RBC (4.40-5.90) Mil/uL Hgb (12.0-18.0) g/dL Hct (35.0-51.0) % MCV (80.0-94.0) fL MCH (27.0-31.0) pg MCHC (33.0-37.0) g/dL RDW (11.5-14.5) % Plt Count (130-400) K/uL MPV (7.2-11.7) fL Neut % (Auto) (50.0-75.0) % Lymph % (Auto) (20.0-40.0) % [place] % (Auto) (0.0-10.0) % Eos % (Auto) (0.0-4.0) % Baso % (Auto) (0.0-2.0) % Neut # (Auto) (1.8-7.0) K/uL Lymph # (Auto) (1.0-4.3) K/uL [place] # (Auto) (0.0-0.8) K/uL Eos # (Auto) (0.0-0.7) K/uL Baso # (Auto) (0.0-0.2) K/uL Neutrophils % (Manual) (50-75) % Band Neutrophils % (0-2) % Lymphocytes % (Manual) (20-40) % Monocytes % (Manual) (0-10) % Platelet Estimate (NORMAL) Polychromasia Anisocytosis (manual) Macrocytosis (manual) Retic Count 0.4 L (0.5-1.5) % Haptoglobin 292.0 H (30.0-200.0) mg/dL Puncture Site pCO2 (35-45) mm/Hg pO2 (80-100) mm/Hg HCO3 (21-28) mmol/L ABG pH (7.35-7.45) ABG Total CO2 (22-28) mmol/L ABG O2 Saturation (95-98) % ABG Base Excess (-2.0-3.0) mmol/L Gregory Test ABG Potassium (3.6-5.2) mmol/L A-a O2 Difference mm/Hg Respiratory Index Glucose (75-110) mg/dl Lactate (0.7-2.1) mmol/L Liter Flow FiO2 % Crit Value Called To Crit Value Called By Crit Value Read Back Blood Gas Notified Time Sodium (132-148) mmol/L Potassium (3.6-5.2) mmol/L Chloride (98-107) mmol/L Carbon Dioxide (22-30) mmol/L Anion Gap (10-20) BUN (9-20) mg/dL Creatinine (0.8-1.5) mg/dL Est GFR ( Amer) Est GFR (Non-Af Amer) Random Glucose (75-110) mg/dL Serum Osmolality (272-300) mosm/kg Lactic Acid (0.7-2.1) mmol/L Uric Acid (3.5-8.5) mg/dL Calcium (8.6-10.4) mg/dl Phosphorus (2.5-4.5) mg/dL Magnesium (1.6-2.3) mg/dL Iron 55 (49-181) ug/dL TIBC 211 L (250-450) ug/dL % Saturation 26 (20-55) Ferritin ng/mL Total Bilirubin (0.2-1.3) mg/dL AST (17-59) U/L ALT (21-72) U/L Alkaline Phosphatase (38-126) U/L Total Creatine Kinase (55-170) U/L CK-MB (Mass) (0.0-3.38) ng/mL Troponin I (0.00-0.120) ng/mL Total Protein (6.3-8.3) g/dL Albumin (3.5-5.0) g/dL Globulin (2.2-3.9) gm/dL Albumin/Globulin Ratio (1.0-2.1) Vitamin B12 (239-931) pg/mL Folate ng/mL Procalcitonin (0.19-0.49) NG/ML Free T4 (0.78-2.19) ng/dL Free T3 pg/mL (2.77-5.27) pg/mL Arterial Blood Potassium (3.6-5.2) mmol/L Urine Color (YELLOW) Urine Clarity (Clear) Urine pH (5.0-8.0) Ur Specific [place] (1.003-1.030) Urine Protein (NEGATIVE) mg/dL Urine Glucose (UA) (Normal) mg/dL Urine Ketones (NEGATIVE) mg/dL Urine Blood (NEGATIVE) Urine Nitrate (NEGATIVE) Urine Bilirubin (NEGATIVE) Urine Urobilinogen (0.2-1.0) mg/dL Ur Leukocyte Esterase (Negative) Bibi/uL Urine WBC (Auto) (0-5) /hpf Urine RBC (Auto) (0-3) /hpf Urine WBC Clumps (Auto) (NONE) /hpf Urine Bacteria (<OCC) Urine Osmolality (300-1000) mosm/kg Ur Random Creatinine mg/dL U Random Total Protein (0.0-12.0) mg/dL Ur Random Sodium mmol/L Urine Chloride (32-290) mmol/L Stool Occult Blood (NEGATIVE) Urine Opiates Screen (NEGATIVE) Urine Methadone Screen (NEGATIVE) Ur Barbiturates Screen (NEGATIVE) Ur Phencyclidine Scrn (NEGATIVE) Ur Amphetamines Screen (NEGATIVE) U Benzodiazepines Scrn (NEGATIVE) U Oth Cocaine Metabols (NEGATIVE) U Cannabinoids Screen (NEGATIVE) Blood Type Antibody Screen 12/21/18 12/21/18 12/21/18 Range/Units 15:15 15:15 14:51 WBC (4.8-10.8) K/uL RBC (4.40-5.90) Mil/uL Hgb (12.0-18.0) g/dL Hct (35.0-51.0) % MCV (80.0-94.0) fL MCH (27.0-31.0) pg MCHC (33.0-37.0) g/dL RDW (11.5-14.5) % Plt Count (130-400) K/uL MPV (7.2-11.7) fL Neut % (Auto) (50.0-75.0) % Lymph % (Auto) (20.0-40.0) % [place] % (Auto) (0.0-10.0) % Eos % (Auto) (0.0-4.0) % Baso % (Auto) (0.0-2.0) % Neut # (Auto) (1.8-7.0) K/uL Lymph # (Auto) (1.0-4.3) K/uL [place] # (Auto) (0.0-0.8) K/uL Eos # (Auto) (0.0-0.7) K/uL Baso # (Auto) (0.0-0.2) K/uL Neutrophils % (Manual) (50-75) % Band Neutrophils % (0-2) % Lymphocytes % (Manual) (20-40) % Monocytes % (Manual) (0-10) % Platelet Estimate (NORMAL) Polychromasia Anisocytosis (manual) Macrocytosis (manual) Retic Count (0.5-1.5) % Haptoglobin (30.0-200.0) mg/dL Puncture Site pCO2 (35-45) mm/Hg pO2 (80-100) mm/Hg HCO3 (21-28) mmol/L ABG pH (7.35-7.45) ABG Total CO2 (22-28) mmol/L ABG O2 Saturation (95-98) % ABG Base Excess (-2.0-3.0) mmol/L Gregory Test ABG Potassium (3.6-5.2) mmol/L A-a O2 Difference mm/Hg Respiratory Index Glucose (75-110) mg/dl Lactate (0.7-2.1) mmol/L Liter Flow FiO2 % Crit Value Called To Crit Value Called By Crit Value Read Back Blood Gas Notified Time Sodium (132-148) mmol/L Potassium (3.6-5.2) mmol/L Chloride (98-107) mmol/L Carbon Dioxide (22-30) mmol/L Anion Gap (10-20) BUN (9-20) mg/dL Creatinine (0.8-1.5) mg/dL Est GFR ( Amer) Est GFR (Non-Af Amer) Random Glucose (75-110) mg/dL Serum Osmolality 317 H (272-300) mosm/kg Lactic Acid (0.7-2.1) mmol/L Uric Acid (3.5-8.5) mg/dL Calcium (8.6-10.4) mg/dl Phosphorus (2.5-4.5) mg/dL Magnesium (1.6-2.3) mg/dL Iron (49-181) ug/dL TIBC (250-450) ug/dL % Saturation (20-55) Ferritin ng/mL Total Bilirubin (0.2-1.3) mg/dL AST (17-59) U/L ALT (21-72) U/L Alkaline Phosphatase (38-126) U/L Total Creatine Kinase 615 H (55-170) U/L CK-MB (Mass) 2.65 (0.0-3.38) ng/mL Troponin I 0.2760 H* (0.00-0.120) ng/mL Total Protein (6.3-8.3) g/dL Albumin (3.5-5.0) g/dL Globulin (2.2-3.9) gm/dL Albumin/Globulin Ratio (1.0-2.1) Vitamin B12 (239-931) pg/mL Folate ng/mL Procalcitonin (0.19-0.49) NG/ML Free T4 0.97 (0.78-2.19) ng/dL Free T3 pg/mL 2.22 L (2.77-5.27) pg/mL Arterial Blood Potassium (3.6-5.2) mmol/L Urine Color (YELLOW) Urine Clarity (Clear) Urine pH (5.0-8.0) Ur Specific [place] (1.003-1.030) Urine Protein (NEGATIVE) mg/dL Urine Glucose (UA) (Normal) mg/dL Urine Ketones (NEGATIVE) mg/dL Urine Blood (NEGATIVE) Urine Nitrate (NEGATIVE) Urine Bilirubin (NEGATIVE) Urine Urobilinogen (0.2-1.0) mg/dL Ur Leukocyte Esterase (Negative) Bibi/uL Urine WBC (Auto) (0-5) /hpf Urine RBC (Auto) (0-3) /hpf Urine WBC Clumps (Auto) (NONE) /hpf Urine Bacteria (<OCC) Urine Osmolality (300-1000) mosm/kg Ur Random Creatinine mg/dL U Random Total Protein (0.0-12.0) mg/dL Ur Random Sodium mmol/L Urine Chloride 74 (32-290) mmol/L Stool Occult Blood (NEGATIVE) Urine Opiates Screen (NEGATIVE) Urine Methadone Screen (NEGATIVE) Ur Barbiturates Screen (NEGATIVE) Ur Phencyclidine Scrn (NEGATIVE) Ur Amphetamines Screen (NEGATIVE) U Benzodiazepines Scrn (NEGATIVE) U Oth Cocaine Metabols (NEGATIVE) U Cannabinoids Screen (NEGATIVE) Blood Type Antibody Screen 12/21/18 12/21/18 12/21/18 Range/Units 14:48 13:32 12:23 WBC (4.8-10.8) K/uL RBC (4.40-5.90) Mil/uL Hgb (12.0-18.0) g/dL Hct (35.0-51.0) % MCV (80.0-94.0) fL MCH (27.0-31.0) pg MCHC (33.0-37.0) g/dL RDW (11.5-14.5) % Plt Count (130-400) K/uL MPV (7.2-11.7) fL Neut % (Auto) (50.0-75.0) % Lymph % (Auto) (20.0-40.0) % [place] % (Auto) (0.0-10.0) % Eos % (Auto) (0.0-4.0) % Baso % (Auto) (0.0-2.0) % Neut # (Auto) (1.8-7.0) K/uL Lymph # (Auto) (1.0-4.3) K/uL [place] # (Auto) (0.0-0.8) K/uL Eos # (Auto) (0.0-0.7) K/uL Baso # (Auto) (0.0-0.2) K/uL Neutrophils % (Manual) (50-75) % Band Neutrophils % (0-2) % Lymphocytes % (Manual) (20-40) % Monocytes % (Manual) (0-10) % Platelet Estimate (NORMAL) Polychromasia Anisocytosis (manual) Macrocytosis (manual) Retic Count (0.5-1.5) % Haptoglobin (30.0-200.0) mg/dL Puncture Site pCO2 (35-45) mm/Hg pO2 (80-100) mm/Hg HCO3 (21-28) mmol/L ABG pH (7.35-7.45) ABG Total CO2 (22-28) mmol/L ABG O2 Saturation (95-98) % ABG Base Excess (-2.0-3.0) mmol/L Gregory Test ABG Potassium (3.6-5.2) mmol/L A-a O2 Difference mm/Hg Respiratory Index Glucose (75-110) mg/dl Lactate (0.7-2.1) mmol/L Liter Flow FiO2 % Crit Value Called To Crit Value Called By Crit Value Read Back Blood Gas Notified Time Sodium (132-148) mmol/L Potassium (3.6-5.2) mmol/L Chloride (98-107) mmol/L Carbon Dioxide (22-30) mmol/L Anion Gap (10-20) BUN (9-20) mg/dL Creatinine (0.8-1.5) mg/dL Est GFR ( Amer) Est GFR (Non-Af Amer) Random Glucose (75-110) mg/dL Serum Osmolality (272-300) mosm/kg Lactic Acid (0.7-2.1) mmol/L Uric Acid (3.5-8.5) mg/dL Calcium (8.6-10.4) mg/dl Phosphorus (2.5-4.5) mg/dL Magnesium (1.6-2.3) mg/dL Iron (49-181) ug/dL TIBC (250-450) ug/dL % Saturation (20-55) Ferritin ng/mL Total Bilirubin (0.2-1.3) mg/dL AST (17-59) U/L ALT (21-72) U/L Alkaline Phosphatase (38-126) U/L Total Creatine Kinase (55-170) U/L CK-MB (Mass) (0.0-3.38) ng/mL Troponin I (0.00-0.120) ng/mL Total Protein (6.3-8.3) g/dL Albumin (3.5-5.0) g/dL Globulin (2.2-3.9) gm/dL Albumin/Globulin Ratio (1.0-2.1) Vitamin B12 (239-931) pg/mL Folate ng/mL Procalcitonin 33.72 H (0.19-0.49) NG/ML Free T4 (0.78-2.19) ng/dL Free T3 pg/mL (2.77-5.27) pg/mL Arterial Blood Potassium (3.6-5.2) mmol/L Urine Color Yellow (YELLOW) Urine Clarity Turbid (Clear) Urine pH 6.0 (5.0-8.0) Ur Specific [place] 1.014 (1.003-1.030) Urine Protein 2+ H (NEGATIVE) mg/dL Urine Glucose (UA) Normal (Normal) mg/dL Urine Ketones Negative (NEGATIVE) mg/dL Urine Blood 2+ H (NEGATIVE) Urine Nitrate Negative (NEGATIVE) Urine Bilirubin Negative (NEGATIVE) Urine Urobilinogen Normal (0.2-1.0) mg/dL Ur Leukocyte Esterase 3+ H (Negative) Bibi/uL Urine WBC (Auto) 2657 H (0-5) /hpf Urine RBC (Auto) 70 H (0-3) /hpf Urine WBC Clumps (Auto) Many H (NONE) /hpf Urine Bacteria Mod H (<OCC) Urine Osmolality 316 (300-1000) mosm/kg Ur Random Creatinine 71.6 mg/dL U Random Total Protein 980.0 H (0.0-12.0) mg/dL Ur Random Sodium 108 mmol/L Urine Chloride (32-290) mmol/L Stool Occult Blood (NEGATIVE) Urine Opiates Screen Negative (NEGATIVE) Urine Methadone Screen Negative (NEGATIVE) Ur Barbiturates Screen Negative (NEGATIVE) Ur Phencyclidine Scrn Negative (NEGATIVE) Ur Amphetamines Screen Negative (NEGATIVE) U Benzodiazepines Scrn Negative (NEGATIVE) U Oth Cocaine Metabols Negative (NEGATIVE) U Cannabinoids Screen Negative (NEGATIVE) Blood Type Antibody Screen 12/21/18 Range/Units 08:51 WBC (4.8-10.8) K/uL RBC (4.40-5.90) Mil/uL Hgb (12.0-18.0) g/dL Hct (35.0-51.0) % MCV (80.0-94.0) fL MCH (27.0-31.0) pg MCHC (33.0-37.0) g/dL RDW (11.5-14.5) % Plt Count (130-400) K/uL MPV (7.2-11.7) fL Neut % (Auto) (50.0-75.0) % Lymph % (Auto) (20.0-40.0) % [place] % (Auto) (0.0-10.0) % Eos % (Auto) (0.0-4.0) % Baso % (Auto) (0.0-2.0) % Neut # (Auto) (1.8-7.0) K/uL Lymph # (Auto) (1.0-4.3) K/uL [place] # (Auto) (0.0-0.8) K/uL Eos # (Auto) (0.0-0.7) K/uL Baso # (Auto) (0.0-0.2) K/uL Neutrophils % (Manual) (50-75) % Band Neutrophils % (0-2) % Lymphocytes % (Manual) (20-40) % Monocytes % (Manual) (0-10) % Platelet Estimate (NORMAL) Polychromasia Anisocytosis (manual) Macrocytosis (manual) Retic Count (0.5-1.5) % Haptoglobin (30.0-200.0) mg/dL Puncture Site pCO2 (35-45) mm/Hg pO2 (80-100) mm/Hg HCO3 (21-28) mmol/L ABG pH (7.35-7.45) ABG Total CO2 (22-28) mmol/L ABG O2 Saturation (95-98) % ABG Base Excess (-2.0-3.0) mmol/L Gregory Test ABG Potassium (3.6-5.2) mmol/L A-a O2 Difference mm/Hg Respiratory Index Glucose (75-110) mg/dl Lactate (0.7-2.1) mmol/L Liter Flow FiO2 % Crit Value Called To Crit Value Called By Crit Value Read Back Blood Gas Notified Time Sodium (132-148) mmol/L Potassium (3.6-5.2) mmol/L Chloride (98-107) mmol/L Carbon Dioxide (22-30) mmol/L Anion Gap (10-20) BUN (9-20) mg/dL Creatinine (0.8-1.5) mg/dL Est GFR ( Amer) Est GFR (Non-Af Amer) Random Glucose (75-110) mg/dL Serum Osmolality (272-300) mosm/kg Lactic Acid (0.7-2.1) mmol/L Uric Acid (3.5-8.5) mg/dL Calcium (8.6-10.4) mg/dl Phosphorus (2.5-4.5) mg/dL Magnesium (1.6-2.3) mg/dL Iron (49-181) ug/dL TIBC (250-450) ug/dL % Saturation (20-55) Ferritin ng/mL Total Bilirubin (0.2-1.3) mg/dL AST (17-59) U/L ALT (21-72) U/L Alkaline Phosphatase (38-126) U/L Total Creatine Kinase (55-170) U/L CK-MB (Mass) (0.0-3.38) ng/mL Troponin I (0.00-0.120) ng/mL Total Protein (6.3-8.3) g/dL Albumin (3.5-5.0) g/dL Globulin (2.2-3.9) gm/dL Albumin/Globulin Ratio (1.0-2.1) Vitamin B12 (239-931) pg/mL Folate ng/mL Procalcitonin (0.19-0.49) NG/ML Free T4 (0.78-2.19) ng/dL Free T3 pg/mL (2.77-5.27) pg/mL Arterial Blood Potassium (3.6-5.2) mmol/L Urine Color (YELLOW) Urine Clarity (Clear) Urine pH (5.0-8.0) Ur Specific [place] (1.003-1.030) Urine Protein (NEGATIVE) mg/dL Urine Glucose (UA) (Normal) mg/dL Urine Ketones (NEGATIVE) mg/dL Urine Blood (NEGATIVE) Urine Nitrate (NEGATIVE) Urine Bilirubin (NEGATIVE) Urine Urobilinogen (0.2-1.0) mg/dL Ur Leukocyte Esterase (Negative) Bibi/uL Urine WBC (Auto) (0-5) /hpf Urine RBC (Auto) (0-3) /hpf Urine WBC Clumps (Auto) (NONE) /hpf Urine Bacteria (<OCC) Urine Osmolality (300-1000) mosm/kg Ur Random Creatinine mg/dL U Random Total Protein (0.0-12.0) mg/dL Ur Random Sodium mmol/L Urine Chloride (32-290) mmol/L Stool Occult Blood (NEGATIVE) Urine Opiates Screen (NEGATIVE) Urine Methadone Screen (NEGATIVE) Ur Barbiturates Screen (NEGATIVE) Ur Phencyclidine Scrn (NEGATIVE) Ur Amphetamines Screen (NEGATIVE) U Benzodiazepines Scrn (NEGATIVE) U Oth Cocaine Metabols (NEGATIVE) U Cannabinoids Screen (NEGATIVE) Blood Type A POSITIVE Antibody Screen Negative Laboratory Results - last 24 hr 12/21/18 12/21/18 12/21/18 08:51 12:23 13:32 WBC RBC Hgb Hct MCV MCH MCHC RDW Plt Count MPV Neut % (Auto) Lymph % (Auto) [place] % (Auto) Eos % (Auto) Baso % (Auto) Neut # (Auto) Lymph # (Auto) [place] # (Auto) Eos # (Auto) Baso # (Auto) Neutrophils % (Manual) Band Neutrophils % Lymphocytes % (Manual) Monocytes % (Manual) Platelet Estimate Polychromasia Anisocytosis (manual) Macrocytosis (manual) Retic Count Haptoglobin Puncture Site pCO2 pO2 HCO3 ABG pH ABG Total CO2 ABG O2 Saturation ABG Base Excess Gregory Test ABG Potassium A-a O2 Difference Respiratory Index Glucose Lactate Liter Flow FiO2 Crit Value Called To Crit Value Called By Crit Value Read Back Blood Gas Notified Time Sodium Potassium Chloride Carbon Dioxide Anion Gap BUN Creatinine Est GFR ( Amer) Est GFR (Non-Af Amer) Random Glucose Serum Osmolality Lactic Acid Uric Acid Calcium Phosphorus Magnesium Iron TIBC % Saturation Ferritin Total Bilirubin AST ALT Alkaline Phosphatase Total Creatine Kinase CK-MB (Mass) Troponin I Total Protein Albumin Globulin Albumin/Globulin Ratio Vitamin B12 Folate Procalcitonin 33.72 H Free T4 Free T3 pg/mL Arterial Blood Potassium Urine Color Urine Clarity Urine pH Ur Specific [place] Urine Protein Urine Glucose (UA) Urine Ketones Urine Blood Urine Nitrate Urine Bilirubin Urine Urobilinogen Ur Leukocyte Esterase Urine WBC (Auto) Urine RBC (Auto) Urine WBC Clumps (Auto) Urine Bacteria Urine Osmolality 316 Ur Random Creatinine 71.6 U Random Total Protein 980.0 H Ur Random Sodium 108 Urine Chloride Stool Occult Blood Urine Opiates Screen Negative Urine Methadone Screen Negative Ur Barbiturates Screen Negative Ur Phencyclidine Scrn Negative Ur Amphetamines Screen Negative U Benzodiazepines Scrn Negative U Oth Cocaine Metabols Negative U Cannabinoids Screen Negative Blood Type A POSITIVE Antibody Screen Negative 12/21/18 12/21/18 12/21/18 14:48 14:51 15:15 WBC RBC Hgb Hct MCV MCH MCHC RDW Plt Count MPV Neut % (Auto) Lymph % (Auto) [place] % (Auto) Eos % (Auto) Baso % (Auto) Neut # (Auto) Lymph # (Auto) [place] # (Auto) Eos # (Auto) Baso # (Auto) Neutrophils % (Manual) Band Neutrophils % Lymphocytes % (Manual) Monocytes % (Manual) Platelet Estimate Polychromasia Anisocytosis (manual) Macrocytosis (manual) Retic Count Haptoglobin Puncture Site pCO2 pO2 HCO3 ABG pH ABG Total CO2 ABG O2 Saturation ABG Base Excess Gregory Test ABG Potassium A-a O2 Difference Respiratory Index Glucose Lactate Liter Flow FiO2 Crit Value Called To Crit Value Called By Crit Value Read Back Blood Gas Notified Time Sodium Potassium Chloride Carbon Dioxide Anion Gap BUN Creatinine Est GFR ( Amer) Est GFR (Non-Af Amer) Random Glucose Serum Osmolality Lactic Acid Uric Acid Calcium Phosphorus Magnesium Iron TIBC % Saturation Ferritin Total Bilirubin AST ALT Alkaline Phosphatase Total Creatine Kinase 615 H CK-MB (Mass) 2.65 Troponin I 0.2760 H* Total Protein Albumin Globulin Albumin/Globulin Ratio Vitamin B12 Folate Procalcitonin Free T4 Free T3 pg/mL 2.22 L Arterial Blood Potassium Urine Color Yellow Urine Clarity Turbid Urine pH 6.0 Ur Specific [place] 1.014 Urine Protein 2+ H Urine Glucose (UA) Normal Urine Ketones Negative Urine Blood 2+ H Urine Nitrate Negative Urine Bilirubin Negative Urine Urobilinogen Normal Ur Leukocyte Esterase 3+ H Urine WBC (Auto) 2657 H Urine RBC (Auto) 70 H Urine WBC Clumps (Auto) Many H Urine Bacteria Mod H Urine Osmolality Ur Random Creatinine U Random Total Protein Ur Random Sodium Urine Chloride 74 Stool Occult Blood Urine Opiates Screen Urine Methadone Screen Ur Barbiturates Screen Ur Phencyclidine Scrn Ur Amphetamines Screen U Benzodiazepines Scrn U Oth Cocaine Metabols U Cannabinoids Screen Blood Type Antibody Screen 12/21/18 12/21/18 12/21/18 15:15 17:06 17:06 WBC RBC Hgb Hct MCV MCH MCHC RDW Plt Count MPV Neut % (Auto) Lymph % (Auto) [place] % (Auto) Eos % (Auto) Baso % (Auto) Neut # (Auto) Lymph # (Auto) [place] # (Auto) Eos # (Auto) Baso # (Auto) Neutrophils % (Manual) Band Neutrophils % Lymphocytes % (Manual) Monocytes % (Manual) Platelet Estimate Polychromasia Anisocytosis (manual) Macrocytosis (manual) Retic Count 0.4 L Haptoglobin Puncture Site pCO2 pO2 HCO3 ABG pH ABG Total CO2 ABG O2 Saturation ABG Base Excess Gregory Test ABG Potassium A-a O2 Difference Respiratory Index Glucose Lactate Liter Flow FiO2 Crit Value Called To Crit Value Called By Crit Value Read Back Blood Gas Notified Time Sodium Potassium Chloride Carbon Dioxide Anion Gap BUN Creatinine Est GFR ( Amer) Est GFR (Non-Af Amer) Random Glucose Serum Osmolality 317 H Lactic Acid Uric Acid Calcium Phosphorus Magnesium Iron 55 TIBC 211 L % Saturation 26 Ferritin Total Bilirubin AST ALT Alkaline Phosphatase Total Creatine Kinase CK-MB (Mass) Troponin I Total Protein Albumin Globulin Albumin/Globulin Ratio Vitamin B12 Folate Procalcitonin Free T4 0.97 Free T3 pg/mL Arterial Blood Potassium Urine Color Urine Clarity Urine pH Ur Specific [place] Urine Protein Urine Glucose (UA) Urine Ketones Urine Blood Urine Nitrate Urine Bilirubin Urine Urobilinogen Ur Leukocyte Esterase Urine WBC (Auto) Urine RBC (Auto) Urine WBC Clumps (Auto) Urine Bacteria Urine Osmolality Ur Random Creatinine U Random Total Protein Ur Random Sodium Urine Chloride Stool Occult Blood Urine Opiates Screen Urine Methadone Screen Ur Barbiturates Screen Ur Phencyclidine Scrn Ur Amphetamines Screen U Benzodiazepines Scrn U Oth Cocaine Metabols U Cannabinoids Screen Blood Type Antibody Screen 12/21/18 12/21/18 12/21/18 17:06 17:06 20:05 WBC RBC Hgb Hct MCV MCH MCHC RDW Plt Count MPV Neut % (Auto) Lymph % (Auto) [place] % (Auto) Eos % (Auto) Baso % (Auto) Neut # (Auto) Lymph # (Auto) [place] # (Auto) Eos # (Auto) Baso # (Auto) Neutrophils % (Manual) Band Neutrophils % Lymphocytes % (Manual) Monocytes % (Manual) Platelet Estimate Polychromasia Anisocytosis (manual) Macrocytosis (manual) Retic Count Haptoglobin 292.0 H Puncture Site pCO2 pO2 HCO3 ABG pH ABG Total CO2 ABG O2 Saturation ABG Base Excess Gregory Test ABG Potassium A-a O2 Difference Respiratory Index Glucose Lactate Liter Flow FiO2 Crit Value Called To Crit Value Called By Crit Value Read Back Blood Gas Notified Time Sodium 137 Potassium 5.1 Chloride 110 H Carbon Dioxide 13 L Anion Gap 20 BUN 70 H Creatinine 4.8 H Est GFR ( Amer) 14 Est GFR (Non-Af Amer) 12 Random Glucose 162 H D Serum Osmolality Lactic Acid Uric Acid 8.1 Calcium 7.5 L Phosphorus 3.9 Magnesium 2.2 Iron TIBC % Saturation Ferritin 754.0 Total Bilirubin 4.6 H AST 90 H ALT < 6 L D Alkaline Phosphatase 348 H D Total Creatine Kinase 577 H CK-MB (Mass) Troponin I Total Protein 5.3 L Albumin 2.9 L Globulin 2.5 Albumin/Globulin Ratio 1.2 Vitamin B12 669 Folate > 20.0 Procalcitonin Free T4 Free T3 pg/mL Arterial Blood Potassium Urine Color Urine Clarity Urine pH Ur Specific [place] Urine Protein Urine Glucose (UA) Urine Ketones Urine Blood Urine Nitrate Urine Bilirubin Urine Urobilinogen Ur Leukocyte Esterase Urine WBC (Auto) Urine RBC (Auto) Urine WBC Clumps (Auto) Urine Bacteria Urine Osmolality Ur Random Creatinine U Random Total Protein Ur Random Sodium Urine Chloride Stool Occult Blood Negative Urine Opiates Screen Urine Methadone Screen Ur Barbiturates Screen Ur Phencyclidine Scrn Ur Amphetamines Screen U Benzodiazepines Scrn U Oth Cocaine Metabols U Cannabinoids Screen Blood Type Antibody Screen 12/21/18 12/22/18 12/22/18 20:24 04:52 04:56 WBC 7.6 RBC 3.12 L Hgb 10.1 L D Hct 30.8 L MCV 98.9 H D MCH 32.3 H MCHC 32.6 L RDW 21.2 H Plt Count 112 L MPV 10.6 Neut % (Auto) 93.2 H Lymph % (Auto) 1.8 L [place] % (Auto) 4.5 Eos % (Auto) 0.3 Baso % (Auto) 0.2 Neut # (Auto) 7.1 H Lymph # (Auto) 0.1 L [place] # (Auto) 0.3 Eos # (Auto) 0.0 Baso # (Auto) 0.0 Neutrophils % (Manual) 88 H Band Neutrophils % 7 H Lymphocytes % (Manual) 2 L Monocytes % (Manual) 3 Platelet Estimate Slightly decreased L Polychromasia Slight Anisocytosis (manual) Moderate Macrocytosis (manual) Moderate Retic Count Haptoglobin Puncture Site Lb Rb pCO2 18 L* 23 L pO2 116 H 80 HCO3 15.4 L 16.4 L ABG pH 7.37 7.35 ABG Total CO2 11.0 L 13.4 L ABG O2 Saturation 100.1 H 99.1 H ABG Base Excess -12.3 L -10.9 L Gregory Test Na Na ABG Potassium 4.1 5.0 A-a O2 Difference 61.0 Respiratory Index 0.5 Glucose 73 L 110 Lactate 3.8 H 3.6 H Liter Flow 2.0 3.0 FiO2 28.0 Crit Value Called To Dr posey Crit Value Called By Shane clay Crit Value Read Back Y Blood Gas Notified Time 2024 Sodium 142.0 139.0 Potassium Chloride 113.0 H 104.0 Carbon Dioxide Anion Gap BUN Creatinine Est GFR ( Amer) Est GFR (Non-Af Amer) Random Glucose Serum Osmolality Lactic Acid Uric Acid Calcium Phosphorus Magnesium Iron TIBC % Saturation Ferritin Total Bilirubin AST ALT Alkaline Phosphatase Total Creatine Kinase CK-MB (Mass) Troponin I Total Protein Albumin Globulin Albumin/Globulin Ratio Vitamin B12 Folate Procalcitonin Free T4 Free T3 pg/mL Arterial Blood Potassium 4.1 5.0 Urine Color Urine Clarity Urine pH Ur Specific [place] Urine Protein Urine Glucose (UA) Urine Ketones Urine Blood Urine Nitrate Urine Bilirubin Urine Urobilinogen Ur Leukocyte Esterase Urine WBC (Auto) Urine RBC (Auto) Urine WBC Clumps (Auto) Urine Bacteria Urine Osmolality Ur Random Creatinine U Random Total Protein Ur Random Sodium Urine Chloride Stool Occult Blood Urine Opiates Screen Urine Methadone Screen Ur Barbiturates Screen Ur Phencyclidine Scrn Ur Amphetamines Screen U Benzodiazepines Scrn U Oth Cocaine Metabols U Cannabinoids Screen Blood Type Antibody Screen 12/22/18 12/22/18 12/22/18 04:56 05:34 08:34 WBC RBC Hgb Hct MCV MCH MCHC RDW Plt Count MPV Neut % (Auto) Lymph % (Auto) [place] % (Auto) Eos % (Auto) Baso % (Auto) Neut # (Auto) Lymph # (Auto) [place] # (Auto) Eos # (Auto) Baso # (Auto) Neutrophils % (Manual) Band Neutrophils % Lymphocytes % (Manual) Monocytes % (Manual) Platelet Estimate Polychromasia Anisocytosis (manual) Macrocytosis (manual) Retic Count Haptoglobin Puncture Site pCO2 pO2 HCO3 ABG pH ABG Total CO2 ABG O2 Saturation ABG Base Excess Gregory Test ABG Potassium A-a O2 Difference Respiratory Index Glucose Lactate Liter Flow FiO2 Crit Value Called To Crit Value Called By Crit Value Read Back Blood Gas Notified Time Sodium 139 Potassium 4.9 Chloride 107 Carbon Dioxide 14 L Anion Gap 22 H BUN 73 H Creatinine 5.7 H Est GFR ( Amer) 12 Est GFR (Non-Af Amer) 10 Random Glucose 112 H D Serum Osmolality Lactic Acid 4.1 H* 2.4 H Uric Acid Calcium 8.0 L Phosphorus 3.9 Magnesium 2.3 Iron TIBC % Saturation Ferritin Total Bilirubin 6.2 H AST 108 H ALT 20 L D Alkaline Phosphatase 439 H D Total Creatine Kinase CK-MB (Mass) Troponin I Total Protein 5.6 L Albumin 3.1 L Globulin 2.6 Albumin/Globulin Ratio 1.2 Vitamin B12 Folate Procalcitonin Free T4 Free T3 pg/mL Arterial Blood Potassium Urine Color Urine Clarity Urine pH Ur Specific [place] Urine Protein Urine Glucose (UA) Urine Ketones Urine Blood Urine Nitrate Urine Bilirubin Urine Urobilinogen Ur Leukocyte Esterase Urine WBC (Auto) Urine RBC (Auto) Urine WBC Clumps (Auto) Urine Bacteria Urine Osmolality Ur Random Creatinine U Random Total Protein Ur Random Sodium Urine Chloride Stool Occult Blood Urine Opiates Screen Urine Methadone Screen Ur Barbiturates Screen Ur Phencyclidine Scrn Ur Amphetamines Screen U Benzodiazepines Scrn U Oth Cocaine Metabols U Cannabinoids Screen Blood Type Antibody Screen 12/22/18 12:07 WBC RBC Hgb Hct MCV MCH MCHC RDW Plt Count MPV Neut % (Auto) Lymph % (Auto) [place] % (Auto) Eos % (Auto) Baso % (Auto) Neut # (Auto) Lymph # (Auto) [place] # (Auto) Eos # (Auto) Baso # (Auto) Neutrophils % (Manual) Band Neutrophils % Lymphocytes % (Manual) Monocytes % (Manual) Platelet Estimate Polychromasia Anisocytosis (manual) Macrocytosis (manual) Retic Count Haptoglobin Puncture Site pCO2 pO2 HCO3 ABG pH ABG Total CO2 ABG O2 Saturation ABG Base Excess Gregory Test ABG Potassium A-a O2 Difference Respiratory Index Glucose Lactate Liter Flow FiO2 Crit Value Called To Crit Value Called By Crit Value Read Back Blood Gas Notified Time Sodium Potassium Chloride Carbon Dioxide Anion Gap BUN Creatinine Est GFR ( Amer) Est GFR (Non-Af Amer) Random Glucose Serum Osmolality Lactic Acid 2.9 H Uric Acid Calcium Phosphorus Magnesium Iron TIBC % Saturation Ferritin Total Bilirubin AST ALT Alkaline Phosphatase Total Creatine Kinase CK-MB (Mass) Troponin I Total Protein Albumin Globulin Albumin/Globulin Ratio Vitamin B12 Folate Procalcitonin Free T4 Free T3 pg/mL Arterial Blood Potassium Urine Color Urine Clarity Urine pH Ur Specific [place] Urine Protein Urine Glucose (UA) Urine Ketones Urine Blood Urine Nitrate Urine Bilirubin Urine Urobilinogen Ur Leukocyte Esterase Urine WBC (Auto) Urine RBC (Auto) Urine WBC Clumps (Auto) Urine Bacteria Urine Osmolality Ur Random Creatinine U Random Total Protein Ur Random Sodium Urine Chloride Stool Occult Blood Urine Opiates Screen Urine Methadone Screen Ur Barbiturates Screen Ur Phencyclidine Scrn Ur Amphetamines Screen U Benzodiazepines Scrn U Oth Cocaine Metabols U Cannabinoids Screen Blood Type Antibody Screen Radiology Impressions: Radiology Impressions Chest X-Ray 12/22/18 04:38 Impression: Worsening focal confluent consolidative changes at the right lung base which may represent worsening infiltrate. Mild patchy increased markings at the left lung base. Cardiomegaly. Dense sclerosis throughout the visualized osseous structures concerning for diffuse metastatic disease. 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, Liver Cirrhosis, Hypothyroidism, Umbilical hernia, and AFib currently on bipap with MAHIN and hypercapnia 2nd op oids -Metabolic acidosis: continue Bicarb tabs dna bicarb pushes to keep bicarb near 18, d/c bicarb ggt as cxr reveals congestion, continue HD as per renal -Severe systolic heart failure: decrease svr (d/c phenylephrine) and start dopamine and dobutamine, serial lactic, SCVO2, titrate off pressor to keep MAp >65 -Sepsis: start abx likely urine -Orellana in place to monitor urine output -continue dvt/pud ppx -prognosis poor as patient has severe heart failure with kidney failure -d/c bipap as patient's tachypnea 2nd k[place] breathing, no signs of hypercarbia, check ABG -titrate off bi-pap. -continue to monitor post HD -start oral diet when more awake -Avoid sedation. - Date & Time Date: 12/22/18 Time: 13:00
--- NOTE | 2018-12-22 15:48 | RAD ---
Chest x-ray single frontal view HISTORY: Central line placement. COMPARISON: 12/22/2018 Findings: Right central venous catheter tip extending into the right SVC. Persistent prominent consolidative opacity in the right lower lung zone. Cardiomegaly. Blunted left costophrenic angle which may represent a small effusion. Diffuse sclerosis throughout the osseous structures which may represent metastatic disease. Distended loops of bowel in the upper abdomen. Impression: Right central venous catheter tip extending into the right SVC. Persistent prominent consolidative opacity in the right lower lung zone. Cardiomegaly. Blunted left costophrenic angle which may represent a small effusion. Diffuse sclerosis throughout the osseous structures which may represent metastatic disease. Distended loops of bowel in the upper abdomen.
--- NOTE | 2018-12-22 15:52 | CP.PCM.PN ---
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, Liver Cirrhosis, Hypothyroidism, Umbilical hernia, OA, admitted with septic shock, presumed opiate OD, and acute renal failure; Patient on BIPAP since yesterday evening, still somnolent/confused at times; very little UO per nursing staff; Objective - Vital Signs/Intake and Output Vital Signs (last 24 hours): Temp Pulse Resp BP Pulse Ox 96.6 F L 110 H 14 100/66 97 12/22/18 11:50 12/22/18 15:21 12/22/18 15:00 12/22/18 14:46 12/22/18 15:00 Intake and Output: 12/22/18 12/22/18 06:59 18:59 Intake Total 3047.4 1951.7 Output Total 25 Balance 3022.4 1951.7 - Medications Medications: Current Medications Aspirin (Aspirin Chewable) 81 mg PO DAILY [facility] Last Admin: 12/22/18 10:33 Dose: 81 mg Dextrose (Dextrose 50% Inj) 0 ml IV STAT PRN; Protocol PRN Reason: Hypoglycemia Protocol Dextrose (Glutose 15) 0 gm PO ONCE PRN; Protocol PRN Reason: Hypoglycemia Protocol Glucagon (Glucagen Diagnostic Kit) 0 mg IM STAT PRN; Protocol PRN Reason: Hypoglycemia Protocol Heparin Sodium (Porcine) (Heparin) 5,000 units SC Q8 [facility] Last Admin: 12/22/18 13:57 Dose: 5,000 units Home Med (Bicalutamide [Casodex]) 50 mg PO DAILY [facility] Hydrocortisone Sodium Succinate (Solu-Cortef) 100 mg IV Q8H [facility] Cefepime HCl (Maxipime Iv 1 Gm Premix) 1 gm in 50 mls @ 100 mls/hr IVPB Q24H [facility]; Protocol Last Admin: 12/21/18 18:53 Dose: 100 mls/hr Sodium Bicarbonate 150 meq/ (Dextrose) 1,150 mls @ 80 mls/hr IV .[id number] [facility] Stop: 12/22/18 23:30 Last Admin: 12/22/18 12:36 Dose: 80 mls/hr Vasopressin 40 units/ Dextrose 42 mls @ 0.63 mls/hr IV .Q24H [facility]; Protocol Last Admin: 12/22/18 06:10 Dose: 0.04 units/min, 2.52 mls/hr Dopamine HCl/Dextrose (Dopamine 400mg/250ml D5w) 400 mg in 250 mls @ 17.929 mls/hr IV .[id number] PRN; Protocol PRN Reason: TITRATE PER MD ORDER Last Titration: 12/22/18 14:55 Dose: 7 mcg/kg/min, 17.929 mls/hr Dobutamine HCl/Dextrose (Dobutamine/Dextrose 5% 500mg/250ml) 500 mg in 250 mls @ 5.123 mls/hr IV .Q24H [facility]; Protocol Last Titration: 12/22/18 14:56 Dose: 0 mcg/kg/min, 0 mls/hr Levothyroxine Sodium (Synthroid) 50 mcg PO DAILY@0630 [facility] Last Admin: 12/22/18 06:30 Dose: Not Given Pantoprazole Sodium (Protonix Inj) 40 mg IVP Q12H [facility] Last Admin: 12/22/18 08:32 Dose: 40 mg Rosuvastatin Calcium (Crestor) 5 mg PO HS [facility] Last Admin: 12/21/18 22:40 Dose: 5 mg Sodium Bicarbonate (Sodium Bicarbonate Tab) 1,300 mg PO Q6 [facility] Last Admin: 12/22/18 11:29 Dose: 1,300 mg Sodium Bicarbonate (Sodium Bicarbonate 8.4% (50 Meq) Vial) 50 meq IVP Q4H [facility] Last Admin: 12/22/18 13:57 Dose: 50 meq Tamsulosin HCl (Flomax) 0.4 mg PO DAILY [facility] Last Admin: 12/22/18 10:33 Dose: 0.4 mg - Labs Labs: 12/22/18 04:56 12/22/18 05:34 PT 24.0 SECONDS (9.7-12.2) H 12/21/18 06:59 INR 2.2 12/21/18 06:59 APTT 34 SECONDS (21-34) 12/21/18 06:59 - Constitutional Appears: Non-toxic, No Acute Distress - Eye Exam Eye Exam: Normal appearance - Respiratory Exam Respiratory Exam: absent: Rales, Rhonchi, Respiratory Distress Additional comments: bronchial breath sounds - Cardiovascular Exam Cardiovascular Exam: Tachycardia, +S1, +S2. absent: Gallop, Rubs - GI/Abdominal Exam GI & Abdominal Exam: Distended, Soft - Extremities Exam Additional comments: mild proximal leg edema b/l - Neurological Exam Neurological Exam: Alert, Awake - Psychiatric Exam Psychiatric exam: absent: Agitated - Skin Skin Exam: absent: Cyanosis Additional comments: slightly cool hands Assessment and Plan (1) Acute renal failure Assessment & Plan: MAHIN on CKD IIIA; oligo-anuric renal failure, consistent with ATN in the setting of septic shock; >6L positive fluid balance since yesterday; modest lactic acidosis likely due to sepsis and hypoperfusion with patient on 2 pressors (vasopressin at 0.04 u and low dose dopamine); Severe systolic CHF noted but lungs are relatively clear and stable respiratory status with patient only on 30% FIO2 via BIPAP; -Dialyzing today for first time primarily for clearance with 0 UF goal over 3 hrs; -Will keep on maintenance IVF in the setting of septic shock (NS at 50 cc/hr); -Avoid nephrotoxic agents; Status: Acute (2) Septic shock Assessment & Plan: On cefepime 1 g daily, dosed for HD; gram neg rods in urine; renal stone noted on US but non-obstructing; f/u urine culture; Status: Acute (3) Lactic acidosis Status: Acute (4) CHF (congestive heart failure) Status: Acute - Assessment and Plan (Free Text) Assessment: Critical care time spent assessing patient and discussion with family physician > 35 minutes.
[2018-12-22 17:20] LABS: ARTERIAL BLOOD GAS HCO3 22.6 mmol/L (21-28); ARTERIAL BLOOD GAS HEMOGLOBIN 10.1 g/dL (11.7-17.4); ARTERIAL BLOOD GAS O2 SAT 98.9 % (95-98); ARTERIAL BLOOD GAS PCO2 30 mm/Hg (35-45); ARTERIAL BLOOD GAS PH 7.44 (7.35-7.45); ARTERIAL BLOOD GAS PO2 83 mm/Hg (80-100); ARTERIAL BLOOD GAS TCO2 21.3 mmol/L (22-28)
[2018-12-22 18:47] LABS: ARTERIAL BLOOD GAS HCO3 17.9 mmol/L (21-28); ARTERIAL BLOOD GAS O2 SAT 99.9 % (95-98); ARTERIAL BLOOD GAS PCO2 20 mm/Hg (35-45); ARTERIAL BLOOD GAS PH 7.42 (7.35-7.45); ARTERIAL BLOOD GAS PO2 195 mm/Hg (80-100); ARTERIAL BLOOD GAS TCO2 13.6 mmol/L (22-28)
[2018-12-22] MEDS: Cefepime IV 1 gm in Dextrose 1 GM/50 ML BAG IVPB SCH (19:04)
--- NOTE | 2018-12-22 21:48 | CP.PCM.PN ---
Subjective - Date & Time of Evaluation Date of Evaluation: 12/22/18 Time of Evaluation: 17:20 - Subjective Subjective: dictated Objective - Vital Signs/Intake and Output Vital Signs (last 24 hours): Temp Pulse Resp BP Pulse Ox 97.6 F 106 H 15 103/49 L 96 12/22/18 16:00 12/22/18 21:44 12/22/18 21:44 12/22/18 21:44 12/22/18 21:44 Intake and Output: 12/22/18 12/23/18 18:59 06:59 Intake Total 2245.6 9 Output Total 50 Balance 2195.6 9 - Medications Medications: Current Medications Aspirin (Aspirin Chewable) 81 mg PO DAILY [facility] Last Admin: 12/22/18 10:33 Dose: 81 mg Dextrose (Dextrose 50% Inj) 0 ml IV STAT PRN; Protocol PRN Reason: Hypoglycemia Protocol Dextrose (Glutose 15) 0 gm PO ONCE PRN; Protocol PRN Reason: Hypoglycemia Protocol Glucagon (Glucagen Diagnostic Kit) 0 mg IM STAT PRN; Protocol PRN Reason: Hypoglycemia Protocol Heparin Sodium (Porcine) (Heparin) 5,000 units SC Q8 [facility] Last Admin: 12/22/18 21:24 Dose: 5,000 units Home Med (Patient's Own Medication) 1 tab PO DAILY [facility] Hydrocortisone Sodium Succinate (Solu-Cortef) 100 mg IV Q8H [facility] Last Admin: 12/22/18 19:04 Dose: 100 mg Cefepime HCl (Maxipime Iv 1 Gm Premix) 1 gm in 50 mls @ 100 mls/hr IVPB Q24H [facility]; Protocol Last Admin: 12/22/18 19:04 Dose: 100 mls/hr Vasopressin 40 units/ Dextrose 42 mls @ 0.63 mls/hr IV .Q24H [facility]; Protocol Last Admin: 12/22/18 21:44 Dose: 0.01 units/min, 1.2 mls/hr Dopamine HCl/Dextrose (Dopamine 400mg/250ml D5w) 400 mg in 250 mls @ 17.929 mls/hr IV .[id number] PRN; Protocol PRN Reason: TITRATE PER MD ORDER Last Titration: 12/22/18 16:59 Dose: 5 mcg/kg/min, 12.806 mls/hr Levothyroxine Sodium (Synthroid) 50 mcg PO DAILY@0630 [facility] Last Admin: 12/22/18 06:30 Dose: Not Given Pantoprazole Sodium (Protonix Inj) 40 mg IVP Q12H [facility] Last Admin: 12/22/18 20:54 Dose: 40 mg Rosuvastatin Calcium (Crestor) 5 mg PO HS [facility] Last Admin: 12/22/18 21:25 Dose: 5 mg Sodium Bicarbonate (Sodium Bicarbonate Tab) 1,300 mg PO Q6 [facility] Last Admin: 12/22/18 19:04 Dose: 1,300 mg Sodium Bicarbonate (Sodium Bicarbonate 8.4% (50 Meq) Vial) 50 meq IVP Q4H [facility] Last Admin: 12/22/18 20:46 Dose: 50 meq Tamsulosin HCl (Flomax) 0.4 mg PO DAILY [facility] Last Admin: 12/22/18 10:33 Dose: 0.4 mg - Labs Labs: 12/22/18 04:56 12/22/18 05:34 PT 24.0 SECONDS (9.7-12.2) H 12/21/18 06:59 INR 2.2 12/21/18 06:59 APTT 34 SECONDS (21-34) 12/21/18 06:59
--- NOTE | 2018-12-22 21:53 | CP.PCM.PN ---
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, Liver Cirrhosis, Hypothyroidism, Umbilical hernia, OA, admitted with septic shock, presumed opiate OD, and acute renal failure; Patient on BIPAP since yesterday evening, still somnolent/confused at times; very little UO per nursing staff; Objective - Vital Signs/Intake and Output Vital Signs (last 24 hours): Temp Pulse Resp BP Pulse Ox 96.6 F L 110 H 14 100/66 97 12/22/18 11:50 12/22/18 15:21 12/22/18 15:00 12/22/18 14:46 12/22/18 15:00 Intake and Output: 12/22/18 12/22/18 06:59 18:59 Intake Total 3047.4 1951.7 Output Total 25 Balance 3022.4 1951.7 - Medications Medications: Current Medications Aspirin (Aspirin Chewable) 81 mg PO DAILY [facility] Last Admin: 12/22/18 10:33 Dose: 81 mg Dextrose (Dextrose 50% Inj) 0 ml IV STAT PRN; Protocol PRN Reason: Hypoglycemia Protocol Dextrose (Glutose 15) 0 gm PO ONCE PRN; Protocol PRN Reason: Hypoglycemia Protocol Glucagon (Glucagen Diagnostic Kit) 0 mg IM STAT PRN; Protocol PRN Reason: Hypoglycemia Protocol Heparin Sodium (Porcine) (Heparin) 5,000 units SC Q8 [facility] Last Admin: 12/22/18 13:57 Dose: 5,000 units Home Med (Bicalutamide [Casodex]) 50 mg PO DAILY [facility] Hydrocortisone Sodium Succinate (Solu-Cortef) 100 mg IV Q8H [facility] Cefepime HCl (Maxipime Iv 1 Gm Premix) 1 gm in 50 mls @ 100 mls/hr IVPB Q24H [facility]; Protocol Last Admin: 12/21/18 18:53 Dose: 100 mls/hr Sodium Bicarbonate 150 meq/ (Dextrose) 1,150 mls @ 80 mls/hr IV .[id number] [facility] Stop: 12/22/18 23:30 Last Admin: 12/22/18 12:36 Dose: 80 mls/hr Vasopressin 40 units/ Dextrose 42 mls @ 0.63 mls/hr IV .Q24H [facility]; Protocol Last Admin: 12/22/18 06:10 Dose: 0.04 units/min, 2.52 mls/hr Dopamine HCl/Dextrose (Dopamine 400mg/250ml D5w) 400 mg in 250 mls @ 17.929 mls/hr IV .[id number] PRN; Protocol PRN Reason: TITRATE PER MD ORDER Last Titration: 12/22/18 14:55 Dose: 7 mcg/kg/min, 17.929 mls/hr Dobutamine HCl/Dextrose (Dobutamine/Dextrose 5% 500mg/250ml) 500 mg in 250 mls @ 5.123 mls/hr IV .Q24H [facility]; Protocol Last Titration: 12/22/18 14:56 Dose: 0 mcg/kg/min, 0 mls/hr Levothyroxine Sodium (Synthroid) 50 mcg PO DAILY@0630 [facility] Last Admin: 12/22/18 06:30 Dose: Not Given Pantoprazole Sodium (Protonix Inj) 40 mg IVP Q12H [facility] Last Admin: 12/22/18 08:32 Dose: 40 mg Rosuvastatin Calcium (Crestor) 5 mg PO HS [facility] Last Admin: 12/21/18 22:40 Dose: 5 mg Sodium Bicarbonate (Sodium Bicarbonate Tab) 1,300 mg PO Q6 [facility] Last Admin: 12/22/18 11:29 Dose: 1,300 mg Sodium Bicarbonate (Sodium Bicarbonate 8.4% (50 Meq) Vial) 50 meq IVP Q4H [facility] Last Admin: 12/22/18 13:57 Dose: 50 meq Tamsulosin HCl (Flomax) 0.4 mg PO DAILY [facility] Last Admin: 12/22/18 10:33 Dose: 0.4 mg - Labs Labs: 12/22/18 04:56 12/22/18 05:34 PT 24.0 SECONDS (9.7-12.2) H 12/21/18 06:59 INR 2.2 12/21/18 06:59 APTT 34 SECONDS (21-34) 12/21/18 06:59 - Constitutional Appears: Non-toxic, No Acute Distress - Eye Exam Eye Exam: Normal appearance - Respiratory Exam Respiratory Exam: absent: Rales, Rhonchi, Respiratory Distress Additional comments: bronchial breath sounds - Cardiovascular Exam Cardiovascular Exam: Tachycardia, +S1, +S2. absent: Gallop, Rubs - GI/Abdominal Exam GI & Abdominal Exam: Distended, Soft - Extremities Exam Additional comments: mild proximal leg edema b/l - Neurological Exam Neurological Exam: Alert, Awake - Psychiatric Exam Psychiatric exam: absent: Agitated - Skin Skin Exam: absent: Cyanosis Additional comments: slightly cool hands Assessment and Plan (1) Acute renal failure Assessment & Plan: MAHIN on CKD IIIA; oligo-anuric renal failure, consistent with ATN in the setting of septic shock; >6L positive fluid balance since yesterday; modest lactic acidosis likely due to sepsis and hypoperfusion with patient on 2 pressors (vaso pressin at 0.04 u and low dose dopamine); Severe systolic CHF noted but lungs are relatively clear and stable respiratory status with patient only on 30% FIO2 via BIPAP; -Dialyzing today for first time primarily for clearance with 0 UF goal over 3 hrs; -Will keep on maintenance IVF in the setting of septic shock (NS at 50 cc/hr); -Avoid nephrotoxic agents; Status: Acute (2) Septic shock Assessment & Plan: On cefepime 1 g daily, dosed for HD; gram neg rods in urine; renal stone noted on US but non-obstructing; f/u urine culture; Status: Acute (3) Lactic acidosis Status: Acute (4) CHF (congestive heart failure)/Systolic CHF/CAD Status: Acute Not a candidate for anticoagulation at this time - Assessment and Plan (Free Text) Assessment: Objective - Vital Signs/Intake and Output Vital Signs (last 24 hours): Temp Pulse Resp BP Pulse Ox 97.6 F 106 H 15 103/49 L 96 12/22/18 16:00 12/22/18 21:44 12/22/18 21:44 12/22/18 21:44 12/22/18 21:44 Intake and Output: 12/22/18 12/23/18 18:59 06:59 Intake Total 2245.6 9 Output Total 50 Balance 2195.6 9 - Medications Medications: Current Medications Aspirin (Aspirin Chewable) 81 mg PO DAILY [facility] Last Admin: 12/22/18 10:33 Dose: 81 mg Dextrose (Dextrose 50% Inj) 0 ml IV STAT PRN; Protocol PRN Reason: Hypoglycemia Protocol Dextrose (Glutose 15) 0 gm PO ONCE PRN; Protocol PRN Reason: Hypoglycemia Protocol Glucagon (Glucagen Diagnostic Kit) 0 mg IM STAT PRN; Protocol PRN Reason: Hypoglycemia Protocol Heparin Sodium (Porcine) (Heparin) 5,000 units SC Q8 [facility] Last Admin: 12/22/18 21:24 Dose: 5,000 units Home Med (Patient's Own Medication) 1 tab PO DAILY [facility] Hydrocortisone Sodium Succinate (Solu-Cortef) 100 mg IV Q8H [facility] Last Admin: 12/22/18 19:04 Dose: 100 mg Cefepime HCl (Maxipime Iv 1 Gm Premix) 1 gm in 50 mls @ 100 mls/hr IVPB Q24H [facility]; Protocol Last Admin: 12/22/18 19:04 Dose: 100 mls/hr Vasopressin 40 units/ Dextrose 42 mls @ 0.63 mls/hr IV .Q24H [facility]; Protocol Last Admin: 12/22/18 21:44 Dose: 0.01 units/min, 1.2 mls/hr Dopamine HCl/Dextrose (Dopamine 400mg/250ml D5w) 400 mg in 250 mls @ 17.929 mls/hr IV .[id number] PRN; Protocol PRN Reason: TITRATE PER MD ORDER Last Titration: 12/22/18 16:59 Dose: 5 mcg/kg/min, 12.806 mls/hr Levothyroxine Sodium (Synthroid) 50 mcg PO DAILY@0630 [facility] Last Admin: 12/22/18 06:30 Dose: Not Given Pantoprazole Sodium (Protonix Inj) 40 mg IVP Q12H [facility] Last Admin: 12/22/18 20:54 Dose: 40 mg Rosuvastatin Calcium (Crestor) 5 mg PO HS [facility] Last Admin: 12/22/18 21:25 Dose: 5 mg Sodium Bicarbonate (Sodium Bicarbonate Tab) 1,300 mg PO Q6 [facility] Last Admin: 12/22/18 19:04 Dose: 1,300 mg Sodium Bicarbonate (Sodium Bicarbonate 8.4% (50 Meq) Vial) 50 meq IVP Q4H [facility] Last Admin: 12/22/18 20:46 Dose: 50 meq Tamsulosin HCl (Flomax) 0.4 mg PO DAILY [facility] Last Admin: 12/22/18 10:33 Dose: 0.4 mg - Labs Labs: 12/22/18 04:56 12/22/18 05:34 PT 24.0 SECONDS (9.7-12.2) H 12/21/18 06:59 INR 2.2 12/21/18 06:59 APTT 34 SECONDS (21-34) 12/21/18 06:59
--- NOTE | 2018-12-23 03:19 | PN ---
DATE: 12/22/2018 SUBJECTIVE: The patient is on BiPAP. He seems to be in respiratory distress with fluid overload and he is for hemodialysis. The patient in the past also had hemodialysis. Right now, the patient is afebrile. He is in respiratory distress, on BiPAP. He is more alert. He denies any chest pain. PHYSICAL EXAMINATION: VITAL SIGNS: Blood pressure 103/49, pulse 106, respiratory rate 15, and temperature 99. LUNGS: Bilateral crackles. Decreased air entry. CARDIOVASCULAR SYSTEM: S1, S2 pulse S3 positive. Irregularly irregular. ABDOMEN: Soft, nontender. Bowel sounds are positive. ASSESSMENT: 1. Drug overdose due to opiates with pain killer for his bony metastasis for prostate cancer. 2. Stage IV prostate cancer. 3. Fluid overload, respiratory distress, for hemodialysis. 4. Atrial fibrillation with rapid ventricular response. The patient's rapid heart rate is compensatory. PLAN: Continue antibiotics. Urine cultures are positive for gram-negative rods, pending ____ and sensitivity. Hemodialysis status post blood transfusion. Monitor the patient. Gregory Thrasher MD
[2018-12-23 05:27] LABS: BASO % 0.4 % (0.0-2.0); EOS % 0.2 % (0.0-4.0); HEMOGLOBIN 10.1 g/dL (12.0-18.0); LYMPH # 0.2 K/uL (1.0-4.3); MEAN CELL VOLUME 97.2 fL (80.0-94.0); MEAN CORPUSCULAR HEMOGLOBIN 32.6 pg (27.0-31.0); MEAN CORPUSCULAR HGB CONC 33.5 g/dL (33.0-37.0); MEAN PLATELET VOLUME 9.9 fL (7.2-11.7); MONO # 0.4 K/uL (0.0-0.8); MONO % 4.8 % (0.0-10.0); NEUT # 6.9 K/uL (1.8-7.0); NEUT % 92.6 % (50.0-75.0); PLATELET COUNT 65 K/uL (130-400); RBC 3.11 Mil/uL (4.40-5.90); RED CELL DISTRIBUTION WIDTH 20.8 % (11.5-14.5); WHITE BLOOD COUNT 7.5 K/uL (4.8-10.8)
[2018-12-23] MEDS: Levothyroxine 50 MCG TAB PO SCH (05:40)
[2018-12-23 05:59] LABS: ALB/GLOB RATIO 1.2 (1.0-2.1); ALBUMIN 3.2 g/dL (3.5-5.0); CALCIUM 7.5 mg/dl (8.6-10.4)
[2018-12-23] MEDS: DOPamine 400mg/250ml D5W 400 MG/250 ML BAG IV PRN (06:14)
[2018-12-23 08:57] LABS: ANISOCYTOSIS MODERATE; BANDS 5 % (0-2); LYMPHOCYTE 2 % (20-40); MONOCYTE 4 % (0-10); NEUTROPHIL 89 % (50-75); PLATELET ESTIMATE DECREASED (NORMAL); TOTAL CELLS COUNTED 100
[2018-12-23 08:58] LABS: POIKILOCYTOSIS SLIGHT
[2018-12-23 08:59] LABS: BURR CELLS SLIGHT; HYPOCHROMIC SLIGHT; OVALOCYTES SLIGHT
[2018-12-23 09:00] LABS: LARGE PLATELETS PRESENT
[2018-12-23 09:58] LABS: ARTERIAL BLOOD GAS HCO3 19.9 mmol/L (21-28); ARTERIAL BLOOD GAS O2 SAT 100.6 % (95-98); ARTERIAL BLOOD GAS PCO2 26 mm/Hg (35-45); ARTERIAL BLOOD GAS PH 7.41 (7.35-7.45); ARTERIAL BLOOD GAS PO2 330 mm/Hg (80-100); ARTERIAL BLOOD GAS TCO2 17.3 mmol/L (22-28)
[2018-12-23] MEDS: BICALUTAMIDE 50 MG PO SCH (10:39)
[2018-12-23] MEDS: Vasopressin 40 UNITS in Dextrose 5% In Water 40 ML IV SCH (10:39)
--- NOTE | 2018-12-23 11:01 | RAD ---
Chest x-ray single frontal view HISTORY: Congestive heart failure. COMPARISON: 12/22/2018 FINDINGS: Lines and tubes in stable position. Persistent dense consolidative opacification in the right lower lung zone. Milder diffuse increased interstitial markings. Cardiomegaly. Lucency at the right heart border may be related to patient positioning. Repeat study may be helpful. Dense sclerosis throughout the visualized osseous structures. Impression: No significant interval change.
--- NOTE | 2018-12-23 14:33 | CP.PCM.PN ---
Subjective - Date & Time of Evaluation Date of Evaluation: 12/23/18 Time of Evaluation: 08:00 - Subjective Subjective: remains lethargic on pressors in NAD Objective - Vital Signs/Intake and Output Vital Signs (last 24 hours): Temp Pulse Resp BP Pulse Ox 97.0 F L 95 H 16 102/69 81 L 12/23/18 12:00 12/23/18 13:00 12/23/18 13:00 12/23/18 12:41 12/23/18 13:00 Intake and Output: 12/23/18 12/23/18 06:59 18:59 Intake Total 329.0 99.3 Output Total 25 10 Balance 304.0 89.3 - Medications Medications: Current Medications Aspirin (Aspirin Chewable) 81 mg PO DAILY [facility] Last Admin: 12/23/18 10:38 Dose: 81 mg Dextrose (Dextrose 50% Inj) 0 ml IV STAT PRN; Protocol PRN Reason: Hypoglycemia Protocol Dextrose (Glutose 15) 0 gm PO ONCE PRN; Protocol PRN Reason: Hypoglycemia Protocol Glucagon (Glucagen Diagnostic Kit) 0 mg IM STAT PRN; Protocol PRN Reason: Hypoglycemia Protocol Heparin Sodium (Porcine) (Heparin) 5,000 units SC Q8 [facility] Last Admin: 12/23/18 05:39 Dose: 5,000 units Home Med (Patient's Own Medication) 1 tab PO DAILY [facility] Last Admin: 12/23/18 10:39 Dose: 1 tab Hydrocortisone Sodium Succinate (Solu-Cortef) 100 mg IV Q8H [facility] Last Admin: 12/23/18 09:50 Dose: 100 mg Cefepime HCl (Maxipime Iv 1 Gm Premix) 1 gm in 50 mls @ 100 mls/hr IVPB Q24H [facility]; Protocol Last Admin: 12/22/18 19:04 Dose: 100 mls/hr Vasopressin 40 units/ Dextrose 42 mls @ 0.63 mls/hr IV .Q24H [facility]; Protocol Last Admin: 12/23/18 10:39 Dose: Not Given Dopamine HCl/Dextrose (Dopamine 400mg/250ml D5w) 400 mg in 250 mls @ 17.929 mls/hr IV .[id number] PRN; Protocol PRN Reason: TITRATE PER MD ORDER Last Admin: 12/23/18 06:14 Dose: 4.68 mcg/kg/min, 12 mls/hr Levothyroxine Sodium (Synthroid) 50 mcg PO DAILY@0630 [facility] Last Admin: 12/23/18 05:40 Dose: 50 mcg Pantoprazole Sodium (Protonix Inj) 40 mg IVP Q12H [facility] Last Admin: 12/23/18 09:50 Dose: 40 mg Rosuvastatin Calcium (Crestor) 5 mg PO HS [facility] Last Admin: 12/22/18 21:25 Dose: 5 mg Sodium Bicarbonate (Sodium Bicarbonate Tab) 1,300 mg PO Q6 [facility] Last Admin: 12/22/18 19:04 Dose: 1,300 mg Sodium Bicarbonate (Sodium Bicarbonate 8.4% (50 Meq) Vial) 50 meq IVP Q4H [facility] Last Admin: 12/22/18 20:46 Dose: 50 meq Tamsulosin HCl (Flomax) 0.4 mg PO DAILY [facility] Last Admin: 12/23/18 10:38 Dose: 0.4 mg - Labs Labs: 12/23/18 05:18 12/23/18 05:18 PT 24.0 SECONDS (9.7-12.2) H 12/21/18 06:59 INR 2.2 12/21/18 06:59 APTT 34 SECONDS (21-34) 12/21/18 06:59 - Constitutional Appears: Non-toxic, No Acute Distress, Chronically Ill - Head Exam Head Exam: ATRAUMATIC, NORMAL INSPECTION, NORMOCEPHALIC - Eye Exam Eye Exam: absent: Scleral icterus - ENT Exam ENT Exam: Mucous Membranes Dry - Neck Exam Neck Exam: absent: Lymphadenopathy - Respiratory Exam Respiratory Exam: Decreased Breath Sounds, Rhonchi - Cardiovascular Exam Cardiovascular Exam: REGULAR RHYTHM, +S1, +S2 - GI/Abdominal Exam GI & Abdominal Exam: Distended, Soft. absent: Tenderness - Rectal Exam Rectal Exam: Deferred - Exam Exam: NORMAL INSPECTION - Extremities Exam Extremities Exam: absent: Pedal Edema - Back Exam Back Exam: absent: CVA tenderness (L), CVA tenderness (R) - Neurological Exam Neurological Exam: Altered, CN II-XII Intact - Psychiatric Exam Psychiatric exam: Depressed - Skin Skin Exam: Dry Assessment and Plan (1) UTI (urinary tract infection) Status: Acute (2) MAHIN (acute kidney injury) Status: Acute (3) Anemia Status: Acute (4) Opiate overdose Status: Acute (5) Abdominal distension Status: Acute (6) Acute exacerbation of CHF (congestive heart failure) Status: Acute (7) Afib Status: Acute (8) Anasarca Status: Acute (9) Ascites Status: Acute (10) CHF (congestive heart failure) Status: Acute (11) Elevated brain natriuretic peptide (BNP) level Status: Acute (12) Malignant ascites Status: Acute (13) Pain from bone metastases Status: Acute (14) Prostate CA Status: Acute (15) Severe back pain Status: Acute (16) Stage IV adenocarcinoma of prostate Status: Acute (17) HTN (hypertension) Status: Chronic (18) History of coronary artery disease Status: Chronic (19) History of prostate cancer Status: Chronic - Assessment and Plan (Free Text) Assessment: 78 yo M w/ PMH of HTN, CAD, HFrEF (15-20%), 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
[2018-12-23] MEDS: Cefepime IV 1 gm in Dextrose 1 GM/50 ML BAG IVPB SCH (17:41)
--- NOTE | 2018-12-23 20:06 | CP.PCM.PN ---
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, Liver Cirrhosis, Hypothyroidism, Umbilical hernia, and AFib currently off bipap with MAHIN and hypercapnia 2nd opoids On dopamine and vasopressin Hemodialysis as tolerated Follow-up chest x-ray and ABG Prognosis poor Objective - Vital Signs/Intake and Output Vital Signs (last 24 hours): Temp Pulse Resp BP Pulse Ox 97.3 F L 93 H 18 95/52 L 4 L 12/23/18 16:00 12/23/18 19:00 12/23/18 19:00 12/23/18 18:41 12/23/18 16:00 Intake and Output: 12/23/18 12/24/18 18:59 06:59 Intake Total 174.3 12 Output Total 10 0 Balance 164.3 12 - Medications Medications: Current Medications Aspirin (Aspirin Chewable) 81 mg PO DAILY [facility] Last Admin: 12/23/18 10:38 Dose: 81 mg Dextrose (Dextrose 50% Inj) 0 ml IV STAT PRN; Protocol PRN Reason: Hypoglycemia Protocol Dextrose (Glutose 15) 0 gm PO ONCE PRN; Protocol PRN Reason: Hypoglycemia Protocol Glucagon (Glucagen Diagnostic Kit) 0 mg IM STAT PRN; Protocol PRN Reason: Hypoglycemia Protocol Heparin Sodium (Porcine) (Heparin) 5,000 units SC Q8 [facility] Last Admin: 12/23/18 15:30 Dose: Not Given Home Med (Patient's Own Medication) 1 tab PO DAILY [facility] Last Admin: 12/23/18 10:39 Dose: 1 tab Hydrocortisone Sodium Succinate (Solu-Cortef) 100 mg IV Q8H [facility] Last Admin: 12/23/18 17:41 Dose: 100 mg Cefepime HCl (Maxipime Iv 1 Gm Premix) 1 gm in 50 mls @ 100 mls/hr IVPB Q24H [facility]; Protocol Last Admin: 12/23/18 17:41 Dose: 100 mls/hr Vasopressin 40 units/ Dextrose 42 mls @ 0.63 mls/hr IV .Q24H [facility]; Protocol Last Titration: 12/23/18 16:00 Dose: 0 units/min, 0 mls/hr Dopamine HCl/Dextrose (Dopamine 400mg/250ml D5w) 400 mg in 250 mls @ 17.929 mls/hr IV .[id number] PRN; Protocol PRN Reason: TITRATE PER MD ORDER Last Admin: 12/23/18 06:14 Dose: 4.68 mcg/kg/min, 12 mls/hr Levothyroxine Sodium (Synthroid) 50 mcg PO DAILY@0630 [facility] Last Admin: 12/23/18 05:40 Dose: 50 mcg Pantoprazole Sodium (Protonix Inj) 40 mg IVP Q12H [facility] Last Admin: 12/23/18 09:50 Dose: 40 mg Rosuvastatin Calcium (Crestor) 5 mg PO HS [facility] Last Admin: 12/22/18 21:25 Dose: 5 mg Sodium Bicarbonate (Sodium Bicarbonate Tab) 1,300 mg PO Q6 [facility] Last Admin: 12/22/18 19:04 Dose: 1,300 mg Sodium Bicarbonate (Sodium Bicarbonate 8.4% (50 Meq) Vial) 50 meq IVP Q4H [facility] Last Admin: 12/22/18 20:46 Dose: 50 meq Tamsulosin HCl (Flomax) 0.4 mg PO DAILY [facility] Last Admin: 12/23/18 10:38 Dose: 0.4 mg - Labs Labs: 12/23/18 05:18 12/23/18 05:18 PT 24.0 SECONDS (9.7-12.2) H 12/21/18 06:59 INR 2.2 12/21/18 06:59 APTT 34 SECONDS (21-34) 12/21/18 06:59 Assessment and Plan (1) Respiratory insufficiency Status: Acute (2) MAHIN (acute kidney injury) Status: Acute (3) Anemia Status: Acute (4) Opiate overdose Status: Acute (5) UTI (urinary tract infection) Status: Acute (6) Acute exacerbation of CHF (congestive heart failure) Status: Acute
--- NOTE | 2018-12-23 21:51 | CP.PCM.PN ---
Subjective - Date & Time of Evaluation Date of Evaluation: 12/23/18 Time of Evaluation: 21:25 - Subjective Subjective: Patient confused, lethargic but arousable, on vasopressin and dopamine low dose Objective - Vital Signs/Intake and Output Vital Signs (last 24 hours): Temp Pulse Resp BP Pulse Ox 97.3 F L 122 H 20 99/58 L 4 L 12/23/18 16:00 12/23/18 19:42 12/23/18 19:42 12/23/18 19:42 12/23/18 16:00 Intake and Output: 12/23/18 12/24/18 18:59 06:59 Intake Total 174.3 12 Output Total 10 0 Balance 164.3 12 - Medications Medications: Current Medications Aspirin (Aspirin Chewable) 81 mg PO DAILY [facility] Last Admin: 12/23/18 10:38 Dose: 81 mg Dextrose (Dextrose 50% Inj) 0 ml IV STAT PRN; Protocol PRN Reason: Hypoglycemia Protocol Dextrose (Glutose 15) 0 gm PO ONCE PRN; Protocol PRN Reason: Hypoglycemia Protocol Glucagon (Glucagen Diagnostic Kit) 0 mg IM STAT PRN; Protocol PRN Reason: Hypoglycemia Protocol Heparin Sodium (Porcine) (Heparin) 5,000 units SC Q8 [facility] Last Admin: 12/23/18 15:30 Dose: Not Given Home Med (Patient's Own Medication) 1 tab PO DAILY [facility] Last Admin: 12/23/18 10:39 Dose: 1 tab Hydrocortisone Sodium Succinate (Solu-Cortef) 100 mg IV Q8H [facility] Last Admin: 12/23/18 17:41 Dose: 100 mg Cefepime HCl (Maxipime Iv 1 Gm Premix) 1 gm in 50 mls @ 100 mls/hr IVPB Q24H [facility]; Protocol Last Admin: 12/23/18 17:41 Dose: 100 mls/hr Vasopressin 40 units/ Dextrose 42 mls @ 0.63 mls/hr IV .Q24H [facility]; Protocol Last Titration: 12/23/18 16:00 Dose: 0 units/min, 0 mls/hr Dopamine HCl/Dextrose (Dopamine 400mg/250ml D5w) 400 mg in 250 mls @ 17.929 mls /hr IV .[id number] PRN; Protocol PRN Reason: TITRATE PER MD ORDER Last Admin: 12/23/18 06:14 Dose: 4.68 mcg/kg/min, 12 mls/hr Levothyroxine Sodium (Synthroid) 50 mcg PO DAILY@0630 [facility] Last Admin: 12/23/18 05:40 Dose: 50 mcg Pantoprazole Sodium (Protonix Inj) 40 mg IVP Q12H [facility] Last Admin: 12/23/18 09:50 Dose: 40 mg Rosuvastatin Calcium (Crestor) 5 mg PO HS [facility] Last Admin: 12/22/18 21:25 Dose: 5 mg Sodium Bicarbonate (Sodium Bicarbonate Tab) 1,300 mg PO Q6 [facility] Last Admin: 12/22/18 19:04 Dose: 1,300 mg Sodium Bicarbonate (Sodium Bicarbonate 8.4% (50 Meq) Vial) 50 meq IVP Q4H [facility] Last Admin: 12/22/18 20:46 Dose: 50 meq Tamsulosin HCl (Flomax) 0.4 mg PO DAILY [facility] Last Admin: 12/23/18 10:38 Dose: 0.4 mg - Labs Labs: 12/23/18 05:18 12/23/18 05:18 PT 24.0 SECONDS (9.7-12.2) H 12/21/18 06:59 INR 2.2 12/21/18 06:59 APTT 34 SECONDS (21-34) 12/21/18 06:59 - Additional Findings Additional findings: * HEENT ROZ * neck supple * Chest clear * CVS regular * PA Distended, umbilical hernia * Ext no edema * [employer]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 Lethargy hypotension on pressors UTI Transamitis Ascitis Hypothyroidism Advanced prostate ca with mets CHF MAHIN Chronic pain on opiods Plan Continue HD Ascitic tap Discussion with family about goals of care Poor prognosis due to multiorgan advanced failure
--- NOTE | 2018-12-23 22:17 | CP.PCM.PN ---
Subjective - Date & Time of Evaluation Date of Evaluation: 12/23/18 Time of Evaluation: 09:40 - Subjective Subjective: Patient seen and evaluated Trops trending down Patient not in distress Objective - Vital Signs/Intake and Output Vital Signs (last 24 hours): Temp Pulse Resp BP Pulse Ox 97.3 F L 122 H 20 99/58 L 4 L 12/23/18 16:00 12/23/18 19:42 12/23/18 19:42 12/23/18 19:42 12/23/18 16:00 Intake and Output: 12/23/18 12/24/18 18:59 06:59 Intake Total 174.3 12 Output Total 10 0 Balance 164.3 12 - Medications Medications: Current Medications Aspirin (Aspirin Chewable) 81 mg PO DAILY [facility] Last Admin: 12/23/18 10:38 Dose: 81 mg Dextrose (Dextrose 50% Inj) 0 ml IV STAT PRN; Protocol PRN Reason: Hypoglycemia Protocol Dextrose (Glutose 15) 0 gm PO ONCE PRN; Protocol PRN Reason: Hypoglycemia Protocol Glucagon (Glucagen Diagnostic Kit) 0 mg IM STAT PRN; Protocol PRN Reason: Hypoglycemia Protocol Heparin Sodium (Porcine) (Heparin) 5,000 units SC Q8 [facility] Last Admin: 12/23/18 21:28 Dose: Not Given Home Med (Patient's Own Medication) 1 tab PO DAILY [facility] Last Admin: 12/23/18 10:39 Dose: 1 tab Hydrocortisone Sodium Succinate (Solu-Cortef) 100 mg IV Q8H [facility] Last Admin: 12/23/18 17:41 Dose: 100 mg Cefepime HCl (Maxipime Iv 1 Gm Premix) 1 gm in 50 mls @ 100 mls/hr IVPB Q24H [facility]; Protocol Last Admin: 12/23/18 17:41 Dose: 100 mls/hr Vasopressin 40 units/ Dextrose 42 mls @ 0.63 mls/hr IV .Q24H [facility]; Protocol Last Titration: 12/23/18 16:00 Dose: 0 units/min, 0 mls/hr Dopamine HCl/Dextrose (Dopamine 400mg/250ml D5w) 400 mg in 250 mls @ 17.929 mls/hr IV .[id number] PRN; Protocol PRN Reason: TITRATE PER MD ORDER Last Admin: 12/23/18 06:14 Dose: 4.68 mcg/kg/min, 12 mls/hr Levothyroxine Sodium (Synthroid) 50 mcg PO DAILY@0630 [facility] Last Admin: 12/23/18 05:40 Dose: 50 mcg Pantoprazole Sodium (Protonix Inj) 40 mg IVP Q12H [facility] Last Admin: 12/23/18 21:27 Dose: 40 mg Rosuvastatin Calcium (Crestor) 5 mg PO HS [facility] Last Admin: 12/23/18 21:27 Dose: 5 mg Sodium Bicarbonate (Sodium Bicarbonate Tab) 1,300 mg PO Q6 [facility] Last Admin: 12/22/18 19:04 Dose: 1,300 mg Sodium Bicarbonate (Sodium Bicarbonate 8.4% (50 Meq) Vial) 50 meq IVP Q4H [facility] Last Admin: 12/22/18 20:46 Dose: 50 meq Tamsulosin HCl (Flomax) 0.4 mg PO DAILY [facility] Last Admin: 12/23/18 10:38 Dose: 0.4 mg - Labs Labs: 12/23/18 05:18 12/23/18 05:18 PT 24.0 SECONDS (9.7-12.2) H 12/21/18 06:59 INR 2.2 12/21/18 06:59 APTT 34 SECONDS (21-34) 12/21/18 06:59
--- NOTE | 2018-12-23 22:32 | CP.PCM.PN ---
Subjective - Date & Time of Evaluation Date of Evaluation: 12/23/18 Time of Evaluation: 14:00 - Subjective Subjective: dict Objective - Vital Signs/Intake and Output Vital Signs (last 24 hours): Temp Pulse Resp BP Pulse Ox 97.3 F L 133 H 19 88/61 L 4 L 12/23/18 20:00 12/23/18 21:41 12/23/18 21:41 12/23/18 21:41 12/23/18 20:00 Intake and Output: 12/23/18 12/24/18 18:59 06:59 Intake Total 174.3 48 Output Total 10 5 Balance 164.3 43 - Medications Medications: Current Medications Aspirin (Aspirin Chewable) 81 mg PO DAILY [facility] Last Admin: 12/23/18 10:38 Dose: 81 mg Dextrose (Dextrose 50% Inj) 0 ml IV STAT PRN; Protocol PRN Reason: Hypoglycemia Protocol Dextrose (Glutose 15) 0 gm PO ONCE PRN; Protocol PRN Reason: Hypoglycemia Protocol Glucagon (Glucagen Diagnostic Kit) 0 mg IM STAT PRN; Protocol PRN Reason: Hypoglycemia Protocol Heparin Sodium (Porcine) (Heparin) 5,000 units SC Q8 [facility] Last Admin: 12/23/18 21:28 Dose: Not Given Home Med (Patient's Own Medication) 1 tab PO DAILY [facility] Last Admin: 12/23/18 10:39 Dose: 1 tab Hydrocortisone Sodium Succinate (Solu-Cortef) 100 mg IV Q8H [facility] Last Admin: 12/23/18 17:41 Dose: 100 mg Cefepime HCl (Maxipime Iv 1 Gm Premix) 1 gm in 50 mls @ 100 mls/hr IVPB Q24H [facility]; Protocol Last Admin: 12/23/18 17:41 Dose: 100 mls/hr Vasopressin 40 units/ Dextrose 42 mls @ 0.63 mls/hr IV .Q24H [facility]; Protocol Last Titration: 12/23/18 16:00 Dose: 0 units/min, 0 mls/hr Dopamine HCl/Dextrose (Dopamine 400mg/250ml D5w) 400 mg in 250 mls @ 17.929 mls/hr IV .[id number] PRN; Protocol PRN Reason: TITRATE PER MD ORDER Last Admin: 12/23/18 06:14 Dose: 4.68 mcg/kg/min, 12 mls/hr Levothyroxine Sodium (Synthroid) 50 mcg PO DAILY@0630 [facility] Last Admin: 12/23/18 05:40 Dose: 50 mcg Pantoprazole Sodium (Protonix Inj) 40 mg IVP Q12H [facility] Last Admin: 12/23/18 21:27 Dose: 40 mg Rosuvastatin Calcium (Crestor) 5 mg PO HS [facility] Last Admin: 12/23/18 21:27 Dose: 5 mg Sodium Bicarbonate (Sodium Bicarbonate Tab) 1,300 mg PO Q6 [facility] Last Admin: 12/22/18 19:04 Dose: 1,300 mg Sodium Bicarbonate (Sodium Bicarbonate 8.4% (50 Meq) Vial) 50 meq IVP Q4H [facility] Last Admin: 12/22/18 20:46 Dose: 50 meq Tamsulosin HCl (Flomax) 0.4 mg PO DAILY [facility] Last Admin: 12/23/18 10:38 Dose: 0.4 mg - Labs Labs: 12/23/18 05:18 12/23/18 05:18 PT 24.0 SECONDS (9.7-12.2) H 12/21/18 06:59 INR 2.2 12/21/18 06:59 APTT 34 SECONDS (21-34) 12/21/18 06:59
--- NOTE | 2018-12-23 23:15 | CP.PCM.PN ---
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, Liver Cirrhosis, Hypothyroidism, Umbilical hernia, OA, admitted with septic shock, presumed opiate OD, and acute renal failure; Patient appears confused; NPO except meds; placed on 40% O2 via facemask today; reportedly unable to get CT abd/pelvis as he could not lie flat due to dypsnea; Objective - Vital Signs/Intake and Output Vital Signs (last 24 hours): Temp Pulse Resp BP Pulse Ox 97.3 F L 133 H 19 88/61 L 4 L 12/23/18 20:00 12/23/18 21:41 12/23/18 21:41 12/23/18 21:41 12/23/18 20:00 Intake and Output: 12/23/18 12/24/18 18:59 06:59 Intake Total 174.3 48 Output Total 10 5 Balance 164.3 43 - Medications Medications: Current Medications Aspirin (Aspirin Chewable) 81 mg PO DAILY [facility] Last Admin: 12/23/18 10:38 Dose: 81 mg Dextrose (Dextrose 50% Inj) 0 ml IV STAT PRN; Protocol PRN Reason: Hypoglycemia Protocol Dextrose (Glutose 15) 0 gm PO ONCE PRN; Protocol PRN Reason: Hypoglycemia Protocol Glucagon (Glucagen Diagnostic Kit) 0 mg IM STAT PRN; Protocol PRN Reason: Hypoglycemia Protocol Heparin Sodium (Porcine) (Heparin) 5,000 units SC Q8 [facility] Last Admin: 12/23/18 21:28 Dose: Not Given Home Med (Patient's Own Medication) 1 tab PO DAILY [facility] Last Admin: 12/23/18 10:39 Dose: 1 tab Hydrocortisone Sodium Succinate (Solu-Cortef) 100 mg IV Q8H [facility] Last Admin: 12/23/18 17:41 Dose: 100 mg Cefepime HCl (Maxipime Iv 1 Gm Premix) 1 gm in 50 mls @ 100 mls/hr IVPB Q24H [facility]; Protocol Last Admin: 12/23/18 17:41 Dose: 100 mls/hr Vasopressin 40 units/ Dextrose 42 mls @ 0.63 mls/hr IV .Q24H [facility]; Protocol Last Titration: 12/23/18 16:00 Dose: 0 units/min, 0 mls/hr Dopamine HCl/Dextrose (Dopamine 400mg/250ml D5w) 400 mg in 250 mls @ 17.929 mls/hr IV .[id number] PRN; Protocol PRN Reason: TITRATE PER MD ORDER Last Admin: 12/23/18 06:14 Dose: 4.68 mcg/kg/min, 12 mls/hr Levothyroxine Sodium (Synthroid) 50 mcg PO DAILY@0630 [facility] Last Admin: 12/23/18 05:40 Dose: 50 mcg Pantoprazole Sodium (Protonix Inj) 40 mg IVP Q12H [facility] Last Admin: 12/23/18 21:27 Dose: 40 mg Rosuvastatin Calcium (Crestor) 5 mg PO HS [facility] Last Admin: 12/23/18 21:27 Dose: 5 mg Sodium Bicarbonate (Sodium Bicarbonate Tab) 1,300 mg PO Q6 [facility] Last Admin: 12/22/18 19:04 Dose: 1,300 mg Sodium Bicarbonate (Sodium Bicarbonate 8.4% (50 Meq) Vial) 50 meq IVP Q4H [facility] Last Admin: 12/22/18 20:46 Dose: 50 meq Tamsulosin HCl (Flomax) 0.4 mg PO DAILY [facility] Last Admin: 12/23/18 10:38 Dose: 0.4 mg - Labs Labs: 12/23/18 05:18 12/23/18 05:18 PT 24.0 SECONDS (9.7-12.2) H 12/21/18 06:59 INR 2.2 12/21/18 06:59 APTT 34 SECONDS (21-34) 12/21/18 06:59 - Constitutional Appears: Non-toxic, No Acute Distress - Eye Exam Eye Exam: Normal appearance - Respiratory Exam Respiratory Exam: Clear to Ausculation Bilateral. absent: Respiratory Distress - Cardiovascular Exam Cardiovascular Exam: Tachycardia, JVD. absent: Gallop Additional comments: continuous murmur; elevated JVD - GI/Abdominal Exam GI & Abdominal Exam: Distended, Soft - Extremities Exam Additional comments: mild b/l proximal leg edema (progressing); - Neurological Exam Neurological Exam: Alert, Awake - Psychiatric Exam Psychiatric exam: absent: Agitated - Skin Skin Exam: Warm. absent: Cyanosis Assessment and Plan (1) Acute renal failure Assessment & Plan: Oligo-anuric renal failure in the setting of septic shock, clinically consistent with ATN; initiated on HD yesterday primarily for clearance; no UF done as there was question about whether patient was intravascularly volume depleted; now with ~7L positive fluid balance over past 2 days; appears volume overloaded on exam, some possible pulm vasc congestion on CXR; no urgent indication for HD today as patient is on stable FIO2 requirement; -will plan for HD tomorrow with 2L UF goal; will likely need to increase pressors during HD; -holding all bicarb replenishment to avoid worsening volume overload; acidosis will correct with HD; Status: Acute (2) Septic shock Assessment & Plan: UTI sepsis with sensitive E coli; still on vasopressin and low dose dopamine; continue antibiotics dosed for HD (cefepime 1 g daily); Status: Acute (3) Lactic acidosis Status: Acute (4) CHF (congestive heart failure) Assessment & Plan: Evidence of acute systolic CHF decompensation; plan for UF on HD tomorrow; awaiting repeat echo (need to assess for pericardial effusion); Status: Acute
[2018-12-24] MEDS: DOPamine 400mg/250ml D5W 400 MG/250 ML BAG IV PRN ×2 (01:33→21:35)
--- NOTE | 2018-12-24 02:03 | PN ---
DATE: 12/23/2018 SUBJECTIVE: The patient, overall, is weak, lethargic, and he is arousable. He is on vasopressin and . He is on antibiotics, used cefepime, and his urine is growing E. Coli which is pansensitive. PHYSICAL EXAMINATION: VITAL SIGNS: Blood pressure is 99/58, pulse 122, respiratory rate 20, temperature 97.3. LUNGS: Bilateral rales. Decreased air entry. CARDIOVASCULAR: S1, S2 plus S3 positive. ABDOMEN: Soft, nontender. Bowel sounds are positive. ASSESSMENT: 1. Altered mental status due to drug overdose with opiates. 2. Kidney failure with fluid distention, status post hemodialysis. 3. Rapid atrial fibrillation. 4. Congestive heart failure, fluid overload. 5. Acute on chronic kidney disease. PLAN: Continue diuretics, hemodialysis, blood transfusion, monitor the patient. Gregory Thrasher MD
[2018-12-24] MEDS: Vasopressin 40 UNITS in Dextrose 5% In Water 40 ML IV SCH (05:41)
[2018-12-24 05:50] LABS: ARTERIAL BLOOD GAS HCO3 13.6 mmol/L (21-28); ARTERIAL BLOOD GAS O2 SAT 98.6 % (95-98); ARTERIAL BLOOD GAS PCO2 18 mm/Hg (35-45); ARTERIAL BLOOD GAS PH 7.33 (7.35-7.45); ARTERIAL BLOOD GAS PO2 88 mm/Hg (80-100); ARTERIAL BLOOD GAS TCO2 10.1 mmol/L (22-28)
[2018-12-24 06:17] LABS: BASO % 0.4 % (0.0-2.0); EOS % 0.1 % (0.0-4.0); HEMOGLOBIN 9.5 g/dL (12.0-18.0); LYMPH # 0.4 K/uL (1.0-4.3); MEAN CELL VOLUME 99.4 fL (80.0-94.0); MEAN CORPUSCULAR HEMOGLOBIN 32.6 pg (27.0-31.0); MEAN CORPUSCULAR HGB CONC 32.9 g/dL (33.0-37.0); MEAN PLATELET VOLUME 10.9 fL (7.2-11.7); MONO # 0.5 K/uL (0.0-0.8); MONO % 5.3 % (0.0-10.0); NEUT # 7.7 K/uL (1.8-7.0); NEUT % 89.2 % (50.0-75.0); NRBC % 0.2 % (0.0-2.0); PLATELET COUNT 58 K/uL (130-400); RBC 2.91 Mil/uL (4.40-5.90); RED CELL DISTRIBUTION WIDTH 21.5 % (11.5-14.5); WHITE BLOOD COUNT 8.7 K/uL (4.8-10.8)
[2018-12-24] MEDS: Levothyroxine 50 MCG TAB PO SCH (06:31)
[2018-12-24 06:53] LABS: ALB/GLOB RATIO 1.3 (1.0-2.1); ALBUMIN 3.2 g/dL (3.5-5.0)
[2018-12-24 08:25] LABS: INR 2.1; PROTHROMBIN TIME 23.5 SECONDS (9.7-12.2)
[2018-12-24 08:26] LABS: BANDS 9 % (0-2); LYMPHOCYTE 4 % (20-40); MONOCYTE 3 % (0-10); NEUTROPHIL 84 % (50-75); PLATELET ESTIMATE DECREASED (NORMAL); TOTAL CELLS COUNTED 100
[2018-12-24 08:27] LABS: ANISOCYTOSIS MODERATE; BURR CELLS SLIGHT
[2018-12-24 08:31] LABS: HEPATITIS B SURFACE AG Negative (NEGATIVE)
[2018-12-24 08:36] LABS: HEPATITIS B CORE AB NEGATIVE (NEGATIVE)
[2018-12-24 08:48] LABS: HEPATITIS C ANTIBODY NEGATIVE (NEGATIVE)
--- NOTE | 2018-12-24 08:49 | RAD ---
Chest x-ray single frontal view HISTORY: Respiratory status. COMPARISON: 12/23/2018 FINDINGS: Lines and tubes in stable position. Persistent focal consolidative opacification at the right lower lung zone. Cardiomegaly. Dense sclerosis throughout the visualized osseous structures. Impression: Improved aeration in the lung garcia with persistent consolidation at the right lower lung zone.
[2018-12-24] MEDS: BICALUTAMIDE 50 MG PO SCH (09:56)
--- NOTE | 2018-12-24 10:50 | CP.PCM.PN ---
<Ramiro Jenkins - Last Filed: 12/24/18 10:45> Subjective - Date & Time of Evaluation Date of Evaluation: 12/24/18 Time of Evaluation: 10:45 - Subjective Subjective: Pulm Progress Note for Dr. Gardner S/E at bedside AAOx1 Limited ROS due to patient clinical condition HD today as per nephro Objective - Vital Signs/Intake and Output Vital Signs (last 24 hours): Temp Pulse Resp BP Pulse Ox 95.4 F L 134 H 26 H 99/56 L 89 L 12/24/18 08:00 12/24/18 10:00 12/24/18 10:00 12/24/18 09:55 12/24/18 04:00 Intake and Output: 12/24/18 12/24/18 06:59 18:59 Intake Total 444 48 Output Total 10 17 Balance 434 31 - Medications Medications: Current Medications Dextrose (Dextrose 50% Inj) 0 ml IV STAT PRN; Protocol PRN Reason: Hypoglycemia Protocol Dextrose (Glutose 15) 0 gm PO ONCE PRN; Protocol PRN Reason: Hypoglycemia Protocol Glucagon (Glucagen Diagnostic Kit) 0 mg IM STAT PRN; Protocol PRN Reason: Hypoglycemia Protocol Home Med (Patient's Own Medication) 1 tab PO DAILY [facility] Last Admin: 12/24/18 09:56 Dose: 1 tab Hydrocortisone Sodium Succinate (Solu-Cortef) 100 mg IV Q8H [facility] Last Admin: 12/24/18 09:55 Dose: 100 mg Cefepime HCl (Maxipime Iv 1 Gm Premix) 1 gm in 50 mls @ 100 mls/hr IVPB Q24H [facility]; Protocol Last Admin: 12/23/18 17:41 Dose: 100 mls/hr Vasopressin 40 units/ Dextrose 42 mls @ 0.63 mls/hr IV .Q24H [facility]; Protocol Last Admin: 12/24/18 05:41 Dose: Not Given Dopamine HCl/Dextrose (Dopamine 400mg/250ml D5w) 400 mg in 250 mls @ 17.929 mls/hr IV .[id number] PRN; Protocol PRN Reason: TITRATE PER MD ORDER Last Admin: 12/24/18 01:33 Dose: 4.68 mcg/kg/min, 12 mls/hr Levothyroxine Sodium (Synthroid) 50 mcg PO DAILY@0630 [facility] Last Admin: 12/24/18 06:31 Dose: 50 mcg Pantoprazole Sodium (Protonix Inj) 40 mg IVP Q12H [facility] Last Admin: 12/24/18 09:55 Dose: 40 mg Rosuvastatin Calcium (Crestor) 5 mg PO HS [facility] Last Admin: 12/23/18 21:27 Dose: 5 mg Sodium Bicarbonate (Sodium Bicarbonate Tab) 1,300 mg PO Q6 [facility] Last Admin: 12/22/18 19:04 Dose: 1,300 mg Sodium Bicarbonate (Sodium Bicarbonate 8.4% (50 Meq) Vial) 50 meq IVP Q4H [facility] Last Admin: 12/22/18 20:46 Dose: 50 meq Tamsulosin HCl (Flomax) 0.4 mg PO DAILY [facility] Last Admin: 12/24/18 09:56 Dose: 0.4 mg - Labs Labs: 12/24/18 06:12 12/24/18 06:12 PT 23.5 SECONDS (9.7-12.2) H 12/24/18 08:11 INR 2.1 12/24/18 08:11 APTT 35 SECONDS (21-34) H 12/24/18 08:11 - Constitutional Appears: Non-toxic, No Acute Distress, Chronically Ill - Eye Exam Eye Exam: EOMI - ENT Exam ENT Exam: Mucous Membranes Dry - Respiratory Exam Respiratory Exam: Clear to Ausculation Bilateral, NORMAL BREATHING PATTERN. absent: Rhonchi, Wheezes - Cardiovascular Exam Cardiovascular Exam: REGULAR RHYTHM, +S1, +S2 - GI/Abdominal Exam GI & Abdominal Exam: Soft, Normal Bowel Sounds. absent: Tenderness - Extremities Exam Extremities Exam: Normal Inspection. absent: Pedal Edema - Neurological Exam Neurological Exam: Awake. 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 Plan: A: Opiate Overdose Septic Shock MAHNI Hypotension Advanced prostate cancer with mets Hypothyroidism HFeRF Liver Cirrhosis P: HD as per nephro Vasopressors as per ICU IV abx as per ICU Bicarb drip as needed to correct acidosis LT4 Crestor 5 Hydrocortisone Flomax Patient prognosis very poor with advanced cancer w/mets. Patient also suffering from ATN likely due to opiate overdose requiring urgent dialysis. continue bp support as needed as per icu. Continue IV abx as per ID <Nico Gardner - Last Filed: 12/24/18 18:03> Objective - Vital Signs/Intake and Output Vital Signs (last 24 hours): Temp Pulse Resp BP Pulse Ox 96.6 F L 96 H 27 H 102/67 78 L 12/24/18 16:00 12/24/18 17:00 12/24/18 17:00 12/24/18 16:55 12/24/18 17:00 Intake and Output: 12/24/18 12/24/18 06:59 18:59 Intake Total 444 192 Output Total 10 276 Balance 434 -84 - Medications Medications: Current Medications Dextrose (Dextrose 50% Inj) 0 ml IV STAT PRN; Protocol PRN Reason: Hypoglycemia Protocol Dextrose (Glutose 15) 0 gm PO ONCE PRN; Protocol PRN Reason: Hypoglycemia Protocol Glucagon (Glucagen Diagnostic Kit) 0 mg IM STAT PRN; Protocol PRN Reason: Hypoglycemia Protocol Home Med (Patient's Own Medication) 1 tab PO DAILY [facility] Last Admin: 12/24/18 09:56 Dose: 1 tab Hydrocortisone Sodium Succinate (Solu-Cortef) 100 mg IV Q8H [facility] Last Admin: 12/24/18 17:03 Dose: 100 mg Cefepime HCl (Maxipime Iv 1 Gm Premix) 1 gm in 50 mls @ 100 mls/hr IVPB Q24H [facility]; Protocol Last Admin: 12/24/18 17:04 Dose: 100 mls/hr Vasopressin 40 units/ Dextrose 42 mls @ 0.63 mls/hr IV .Q24H [facility]; Protocol Last Admin: 12/24/18 05:41 Dose: Not Given Dopamine HCl/Dextrose (Dopamine 400mg/250ml D5w) 400 mg in 250 mls @ 17.929 mls/hr IV .[id number] PRN; Protocol PRN Reason: TITRATE PER MD ORDER Last Admin: 12/24/18 01:33 Dose: 4.68 mcg/kg/min, 12 mls/hr Levothyroxine Sodium (Synthroid) 50 mcg PO DAILY@0630 [facility] Last Admin: 12/24/18 06:31 Dose: 50 mcg Pantoprazole Sodium (Protonix Inj) 40 mg IVP Q12H [facility] Last Admin: 12/24/18 09:55 Dose: 40 mg Rosuvastatin Calcium (Crestor) 5 mg PO HS [facility] Last Admin: 12/23/18 21:27 Dose: 5 mg Sodium Bicarbonate (Sodium Bicarbonate Tab) 1,300 mg PO Q6 [facility] Last Admin: 12/22/18 19:04 Dose: 1,300 mg Sodium Bicarbonate (Sodium Bicarbonate 8.4% (50 Meq) Vial) 50 meq IVP Q4H [facility] Last Admin: 12/22/18 20:46 Dose: 50 meq Tamsulosin HCl (Flomax) 0.4 mg PO DAILY [facility] Last Admin: 12/24/18 09:56 Dose: 0.4 mg - Labs Labs: 12/24/18 06:12 12/24/18 06:12 PT 23.5 SECONDS (9.7-12.2) H 12/24/18 08:11 INR 2.1 12/24/18 08:11 APTT 35 SECONDS (21-34) H 12/24/18 08:11 Assessment and Plan (1) Respiratory insufficiency Status: Acute (2) MAHIN (acute kidney injury) Status: Acute (3) Anemia Status: Acute (4) Opiate overdose Status: Acute (5) UTI (urinary tract infection) Status: Acute (6) Acute exacerbation of CHF (congestive heart failure) Status: Acute Attending/Attestation - Attestation I have personally seen and examined this patient.: Yes I have fully participated in the care of the patient.: Yes I have reviewed all pertinent clinical information, including history, physical exam and plan: Yes Notes (Text): 12/24/18 18:03 Patient seen and examined Assessment and plan as per resident note
--- NOTE | 2018-12-24 14:44 | CP.CCUPN ---
<Nitish Broussard - Last Filed: 12/24/18 14:16> CCU Subjective - Physician Review Subjective (Free Text): 12/24/18 14:46 PGY-1 Critical Care Progeress Note for Dr. Smith Patient seen and examined at bedside. No acute events overnight. Patient tachycardic on monitor, but not c/o any symptoms. Denies chest pain, SOB, nausea, vomiting, dizziness. CCU Objective - Vital Signs / Intake & Output Vital Signs (Last 4 hours): Vital Signs Temp Pulse Pulse Resp BP BP Pulse Ox 12/24/18 13:55 95 H 14 109/75 12/24/18 13:00 95 F L 89 94 H 20 112/56 L 95 12/24/18 12:56 100 H 22 103/66 12/24/18 12:30 111/59 L 12/24/18 12:00 95.8 F L 108 H 15 105/55 L 12/24/18 11:55 97 H 16 96/62 L 12/24/18 11:30 95/49 L 12/24/18 11:00 108 H 15 97/51 L 12/24/18 10:55 128 H 16 95/62 L 12/24/18 10:30 96/51 L Intake and Output (Last 8hrs): Intake & Output 12/23/18 12/24/18 12/24/18 22:59 06:59 14:59 Intake Total 109.2 396 156 Output Total 5 5 517 Balance 104.2 391 -361 Weight 152 lb 12 oz Intake: IV 12 250 Intake, IV Amount 97.2 96 96 Right Internal Jugular 1.2 0 0 Rt IJ Medial port 96 96 96 Oral 0 50 60 Output: Drainage 500 Hemodialysis 500 Urine 5 5 17 Urethral (Orellana) 5 5 17 Other: # Bowel Movements 0 0 0 - Physical Exam Head: Positive for: Atraumatic, Normocephalic Pupils: Positive for: PERRL Conjunctiva: Positive for: Normal Mouth: Positive for: Moist Mucous Membranes Neck: Positive for: Normal Range of Motion Respiratory/Chest: Positive for: Clear to Auscultation, Good Air Exchange. Negative for: Respiratory Distress, Accessory Muscle Use Cardiovascular: Positive for: Regular Rate and Rhythm, Normal S1, S2 Abdomen: Positive for: Distention, Normal Bowel Sounds. Negative for: Tenderness, Peritoneal Signs Upper Extremity: Positive for: Normal Inspection. Negative for: Cyanosis Lower Extremity: Positive for: Normal Inspection. Negative for: Edema Psychiatric: Positive for: Alert, Oriented x 3 - Medications Active Medications: Active Medications Generic Name Dose Route Start Last Admin Trade Name Freq PRN Reason Stop Dose Admin Dextrose 0 ml 12/21/18 12:38 Dextrose 50% Inj IV STAT PRN Hypoglycemia Protocol Protocol Dextrose 0 gm 12/21/18 12:38 Glutose 15 PO ONCE PRN Hypoglycemia Protocol Protocol Glucagon 0 mg 12/21/18 12:38 Glucagen Diagnostic Kit IM STAT PRN Hypoglycemia Protocol Protocol Home Med 1 tab 12/23/18 10:00 12/24/18 09:56 Patient's Own Medication PO 1 tab DAILY JOSÉ MIGUEL Administration Hydrocortisone Sodium Succinate 100 mg 12/22/18 17:00 12/24/18 09:55 Solu-Cortef IV 100 mg Q8H JOSÉ MIGUEL Administration Cefepime HCl 1 gm in 50 mls @ 100 mls/hr 12/21/18 17:45 12/23/18 17:41 Maxipime Iv 1 Gm Premix IVPB 100 mls/hr Q24H JOSÉ MIGUEL Administration Protocol Vasopressin 40 units/ Dextrose 42 mls @ 0.63 mls/hr 12/22/18 05:15 12/24/18 05:41 IV Not Given .Q24H JOSÉ MIGUEL Protocol 0.01 UNITS/MIN Dopamine HCl/Dextrose 400 mg in 250 mls @ 17.929 mls/hr 12/22/18 09:00 12/24/18 01:33 Dopamine 400mg/250ml D5w IV 4.68 mcg/kg/min .[id number] PRN 12 mls/hr TITRATE PER MD ORDER Administration Protocol 7 MCG/KG/MIN Levothyroxine Sodium 50 mcg 12/21/18 08:00 12/24/18 06:31 Synthroid PO 50 mcg DAILY@0630 JOSÉ MIGUEL Administration Pantoprazole Sodium 40 mg 12/22/18 09:00 12/24/18 09:55 Protonix Inj IVP 40 mg Q12H JOSÉ MIGUEL Administration Rosuvastatin Calcium 5 mg 12/21/18 22:00 12/23/18 21:27 Crestor PO 5 mg HS JOSÉ MIGUEL Administration Sodium Bicarbonate 1,300 mg 12/22/18 12:00 12/22/18 19:04 Sodium Bicarbonate Tab PO 1,300 mg Q6 JOSÉ MIGUEL Administration Sodium Bicarbonate 50 meq 12/22/18 08:45 12/22/18 20:46 Sodium Bicarbonate 8.4% (50 Meq) Vial IVP 50 meq Q4H JOSÉ MIGUEL Administration Tamsulosin HCl 0.4 mg 12/21/18 10:00 12/24/18 09:56 Flomax PO 0.4 mg DAILY JOSÉ MIGUEL Administration - Patient Studies Lab Studies: Microbiology Studies 12/21/18 05:53 Blood Culture - Preliminary Blood-Venous NO GROWTH AFTER 3 DAYS 12/21/18 05:53 Blood Culture - Preliminary Blood-Venous NO GROWTH AFTER 3 DAYS 12/21/18 09:41 Stool Culture - Final Stool NO SALMONELLA, SHIGELLA OR CAMPYLOBACTER ISOLATED. Lab Studies 12/24/18 12/24/18 12/24/18 Range/Units 08:11 06:12 06:12 WBC 8.7 (4.8-10.8) K/uL RBC 2.91 L (4.40-5.90) Mil/uL Hgb 9.5 L (12.0-18.0) g/dL Hct 28.9 L (35.0-51.0) % MCV 99.4 H D (80.0-94.0) fL MCH 32.6 H (27.0-31.0) pg MCHC 32.9 L (33.0-37.0) g/dL RDW 21.5 H (11.5-14.5) % Plt Count 58 L (130-400) K/uL MPV 10.9 (7.2-11.7) fL Neut % (Auto) 89.2 H (50.0-75.0) % Lymph % (Auto) 5.0 L (20.0-40.0) % [place] % (Auto) 5.3 (0.0-10.0) % Eos % (Auto) 0.1 (0.0-4.0) % Baso % (Auto) 0.4 (0.0-2.0) % Neut # (Auto) 7.7 H (1.8-7.0) K/uL Lymph # (Auto) 0.4 L (1.0-4.3) K/uL [place] # (Auto) 0.5 (0.0-0.8) K/uL Eos # (Auto) 0.0 (0.0-0.7) K/uL Baso # (Auto) 0.0 (0.0-0.2) K/uL Neutrophils % (Manual) 84 H (50-75) % Band Neutrophils % 9 H (0-2) % Lymphocytes % (Manual) 4 L (20-40) % Monocytes % (Manual) 3 (0-10) % Platelet Estimate Decreased L (NORMAL) Anisocytosis (manual) Moderate Keira Cells Slight PT 23.5 H (9.7-12.2) SECONDS INR 2.1 APTT 35 H (21-34) SECONDS Puncture Site pCO2 (35-45) mm/Hg pO2 (80-100) mm/Hg HCO3 (21-28) mmol/L ABG pH (7.35-7.45) ABG Total CO2 (22-28) mmol/L ABG O2 Saturation (95-98) % ABG Base Excess (-2.0-3.0) mmol/L ABG Hemoglobin (11.7-17.4) g/dL ABG Carboxyhemoglobin (0.5-1.5) % POC ABG HHb (Measured) (0.0-5.0) % ABG Methemoglobin (0.0-3.0) % Gregory Test Hgb O2 Saturation (95.0-98.0) % Liter Flow Crit Value Called To Crit Value Called By Crit Value Read Back Blood Gas Notified Time Sodium 137 (132-148) mmol/L Potassium 5.5 H (3.6-5.2) mmol/L Chloride 102 (98-107) mmol/L Carbon Dioxide 12 L (22-30) mmol/L Anion Gap 29 H (10-20) BUN 70 H (9-20) mg/dL Creatinine 5.3 H (0.8-1.5) mg/dL Est GFR ( Amer) 13 Est GFR (Non-Af Amer) 11 Random Glucose 73 L D (75-110) mg/dL Calcium 7.0 L (8.6-10.4) mg/dl Phosphorus 4.5 (2.5-4.5) mg/dL Magnesium 2.3 (1.6-2.3) mg/dL Total Bilirubin 7.4 H (0.2-1.3) mg/dL AST 1081 H (17-59) U/L ALT 206 H D (21-72) U/L Alkaline Phosphatase 507 H (38-126) U/L Total Protein 5.8 L (6.3-8.3) g/dL Albumin 3.2 L (3.5-5.0) g/dL Globulin 2.6 (2.2-3.9) gm/dL Albumin/Globulin Ratio 1.3 (1.0-2.1) Hep Bs Antigen (NEGATIVE) Hep Bs Ag Neutralizatn Hep Bs Antibody (NEGATIVE) Hep B Core IgM Ab (NEGATIVE) Hepatitis C Antibody (NEGATIVE) 12/24/18 12/22/18 12/22/18 Range/Units 05:23 14:28 14:28 WBC (4.8-10.8) K/uL RBC (4.40-5.90) Mil/uL Hgb (12.0-18.0) g/dL Hct (35.0-51.0) % MCV (80.0-94.0) fL MCH (27.0-31.0) pg MCHC (33.0-37.0) g/dL RDW (11.5-14.5) % Plt Count (130-400) K/uL MPV (7.2-11.7) fL Neut % (Auto) (50.0-75.0) % Lymph % (Auto) (20.0-40.0) % [place] % (Auto) (0.0-10.0) % Eos % (Auto) (0.0-4.0) % Baso % (Auto) (0.0-2.0) % Neut # (Auto) (1.8-7.0) K/uL Lymph # (Auto) (1.0-4.3) K/uL [place] # (Auto) (0.0-0.8) K/uL Eos # (Auto) (0.0-0.7) K/uL Baso # (Auto) (0.0-0.2) K/uL Neutrophils % (Manual) (50-75) % Band Neutrophils % (0-2) % Lymphocytes % (Manual) (20-40) % Monocytes % (Manual) (0-10) % Platelet Estimate (NORMAL) Anisocytosis (manual) [place] Cells PT (9.7-12.2) SECONDS INR APTT (21-34) SECONDS Puncture Site A-line pCO2 18 L* (35-45) mm/Hg pO2 88 (80-100) mm/Hg HCO3 13.6 L (21-28) mmol/L ABG pH 7.33 L (7.35-7.45) ABG Total CO2 10.1 L (22-28) mmol/L ABG O2 Saturation 98.6 H (95-98) % ABG Base Excess -14.6 L (-2.0-3.0) mmol/L ABG Hemoglobin 9.0 L (11.7-17.4) g/dL ABG Carboxyhemoglobin 1.7 H (0.5-1.5) % POC ABG HHb (Measured) 1.4 (0.0-5.0) % ABG Methemoglobin 0.2 (0.0-3.0) % Gregory Test Na Hgb O2 Saturation 96.8 (95.0-98.0) % Liter Flow 4.0 Crit Value Called To Jose carranza Crit Value Called By Petra colon rt Crit Value Read Back Y Blood Gas Notified Time 550 Sodium (132-148) mmol/L Potassium (3.6-5.2) mmol/L Chloride (98-107) mmol/L Carbon Dioxide (22-30) mmol/L Anion Gap (10-20) BUN (9-20) mg/dL Creatinine (0.8-1.5) mg/dL Est GFR ( Amer) Est GFR (Non-Af Amer) Random Glucose (75-110) mg/dL Calcium (8.6-10.4) mg/dl Phosphorus (2.5-4.5) mg/dL Magnesium (1.6-2.3) mg/dL Total Bilirubin (0.2-1.3) mg/dL AST (17-59) U/L ALT (21-72) U/L Alkaline Phosphatase (38-126) U/L Total Protein (6.3-8.3) g/dL Albumin (3.5-5.0) g/dL Globulin (2.2-3.9) gm/dL Albumin/Globulin Ratio (1.0-2.1) Hep Bs Antigen Negative (NEGATIVE) Hep Bs Ag Neutralizatn Cancelled Hep Bs Antibody Negative (NEGATIVE) Hep B Core IgM Ab Negative (NEGATIVE) Hepatitis C Antibody Negative (NEGATIVE) Laboratory Results - last 24 hr 12/22/18 12/22/18 12/24/18 14:28 14:28 05:23 WBC RBC Hgb Hct MCV MCH MCHC RDW Plt Count MPV Neut % (Auto) Lymph % (Auto) [place] % (Auto) Eos % (Auto) Baso % (Auto) Neut # (Auto) Lymph # (Auto) [place] # (Auto) Eos # (Auto) Baso # (Auto) Neutrophils % (Manual) Band Neutrophils % Lymphocytes % (Manual) Monocytes % (Manual) Platelet Estimate Anisocytosis (manual) Keira Cells PT INR APTT Puncture Site A-line pCO2 18 L* pO2 88 HCO3 13.6 L ABG pH 7.33 L ABG Total CO2 10.1 L ABG O2 Saturation 98.6 H ABG Base Excess -14.6 L ABG Hemoglobin 9.0 L ABG Carboxyhemoglobin 1.7 H POC ABG HHb (Measured) 1.4 ABG Methemoglobin 0.2 Gregory Test Na Hgb O2 Saturation 96.8 Liter Flow 4.0 Crit Value Called To Jose carranza Crit Value Called By Petra colon rt Crit Value Read Back Y Blood Gas Notified Time 550 Sodium Potassium Chloride Carbon Dioxide Anion Gap BUN Creatinine Est GFR ( Amer) Est GFR (Non-Af Amer) Random Glucose Calcium Phosphorus Magnesium Total Bilirubin AST ALT Alkaline Phosphatase Total Protein Albumin Globulin Albumin/Globulin Ratio Hep Bs Antigen Negative Hep Bs Ag Neutralizatn Cancelled Hep Bs Antibody Negative Hep B Core IgM Ab Negative Hepatitis C Antibody Negative 12/24/18 12/24/18 12/24/18 06:12 06:12 08:11 WBC 8.7 RBC 2.91 L Hgb 9.5 L Hct 28.9 L MCV 99.4 H D MCH 32.6 H MCHC 32.9 L RDW 21.5 H Plt Count 58 L MPV 10.9 Neut % (Auto) 89.2 H Lymph % (Auto) 5.0 L [place] % (Auto) 5.3 Eos % (Auto) 0.1 Baso % (Auto) 0.4 Neut # (Auto) 7.7 H Lymph # (Auto) 0.4 L [place] # (Auto) 0.5 Eos # (Auto) 0.0 Baso # (Auto) 0.0 Neutrophils % (Manual) 84 H Band Neutrophils % 9 H Lymphocytes % (Manual) 4 L Monocytes % (Manual) 3 Platelet Estimate Decreased L Anisocytosis (manual) Moderate Keira Cells Slight PT 23.5 H INR 2.1 APTT 35 H Puncture Site pCO2 pO2 HCO3 ABG pH ABG Total CO2 ABG O2 Saturation ABG Base Excess ABG Hemoglobin ABG Carboxyhemoglobin POC ABG HHb (Measured) ABG Methemoglobin Gregory Test Hgb O2 Saturation Liter Flow Crit Value Called To Crit Value Called By Crit Value Read Back Blood Gas Notified Time Sodium 137 Potassium 5.5 H Chloride 102 Carbon Dioxide 12 L Anion Gap 29 H BUN 70 H Creatinine 5.3 H Est GFR ( Amer) 13 Est GFR (Non-Af Amer) 11 Random Glucose 73 L D Calcium 7.0 L Phosphorus 4.5 Magnesium 2.3 Total Bilirubin 7.4 H AST 1081 H ALT 206 H D Alkaline Phosphatase 507 H Total Protein 5.8 L Albumin 3.2 L Globulin 2.6 Albumin/Globulin Ratio 1.3 Hep Bs Antigen Hep Bs Ag Neutralizatn Hep Bs Antibody Hep B Core IgM Ab Hepatitis C Antibody Radiology Impressions: Radiology Impressions Chest X-Ray 12/24/18 06:00 Impression: Improved aeration in the lung garcia with persistent consolidation at the right lower lung zone. 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 Blevins -Continue HD per nephro Stage 4 Prostate CA -Off chemotherapy -Opiate pain management c/i 2/2 opioid overdose UTI -Urine growing E Coli 12/10 - likely septic shock causing hypotension and renal hypoperfusion -ABx: Cefepime -F/u repeat cultures Pulm -Maintain spO2 >92% -Maintain pH 7.35-7.45 Neuro Opiate Withdrawal -Opiate medications d/c's -Treating symptomatically -Monitor vitals GI Cirrhosis/Ascites -Improved with HD -Possible paracentesis when medically stabilized ID -Urine cx - E Coli 12/21 -ABx --Cefepime PPx -DVT: c/i 2/ thrombocytopenia -GI: Protonix 40 IVP Q12 -Dopamine drip -HHD, modified dysphagia: fine-chopped and thin liquids Assessment and plan d/w Dr. Luis Broussard, PGY-1 <Blossom Smith - Last Filed: 12/24/18 17:05> CCU Objective - Vital Signs / Intake & Output Vital Signs (Last 4 hours): Vital Signs Temp Pulse Resp BP BP Pulse Ox 12/24/18 16:00 96.6 F L 94 H 18 99/62 L 82 L 12/24/18 15:56 90 23 94/59 L 81 L 12/24/18 15:00 98 H 21 84 L 12/24/18 14:55 92 H 27 H 98/65 L 84 L 12/24/18 14:00 24 12/24/18 13:55 95 H 14 109/75 Intake and Output (Last 8hrs): Intake & Output 12/24/18 12/24/18 12/24/18 06:59 14:59 22:59 Intake Total 396 156 24 Output Total 5 267 4 Balance 391 -111 20 Weight 152 lb 12 oz Intake: IV 250 Intake, IV Amount 96 96 24 Right Internal Jugular 0 0 Rt IJ Medial port 96 96 24 Oral 50 60 0 Output: Drainage 250 Hemodialysis 250 Urine 5 17 4 Urethral (Orellana) 5 17 4 Other: # Bowel Movements 0 0 - Medications Active Medications: Active Medications Generic Name Dose Route Start Last Admin Trade Name Freq PRN Reason Stop Dose Admin Dextrose 0 ml 12/21/18 12:38 Dextrose 50% Inj IV STAT PRN Hypoglycemia Protocol Protocol Dextrose 0 gm 12/21/18 12:38 Glutose 15 PO ONCE PRN Hypoglycemia Protocol Protocol Glucagon 0 mg 12/21/18 12:38 Glucagen Diagnostic Kit IM STAT PRN Hypoglycemia Protocol Protocol Home Med 1 tab 12/23/18 10:00 12/24/18 09:56 Patient's Own Medication PO 1 tab DAILY JOSÉ MIGUEL Administration Hydrocortisone Sodium Succinate 100 mg 12/22/18 17:00 12/24/18 09:55 Solu-Cortef IV 100 mg Q8H JOSÉ MIGUEL Administration Cefepime HCl 1 gm in 50 mls @ 100 mls/hr 12/21/18 17:45 12/23/18 17:41 Maxipime Iv 1 Gm Premix IVPB 100 mls/hr Q24H JOSÉ MIGUEL Administration Protocol Vasopressin 40 units/ Dextrose 42 mls @ 0.63 mls/hr 12/22/18 05:15 12/24/18 05:41 IV Not Given .Q24H JOSÉ MIGUEL Protocol 0.01 UNITS/MIN Dopamine HCl/Dextrose 400 mg in 250 mls @ 17.929 mls/hr 12/22/18 09:00 12/24/18 01:33 Dopamine 400mg/250ml D5w IV 4.68 mcg/kg/min .[id number] PRN 12 mls/hr TITRATE PER MD ORDER Administration Protocol 7 MCG/KG/MIN Levothyroxine Sodium 50 mcg 12/21/18 08:00 12/24/18 06:31 Synthroid PO 50 mcg DAILY@0630 JOSÉ MIGUEL Administration Pantoprazole Sodium 40 mg 12/22/18 09:00 12/24/18 09:55 Protonix Inj IVP 40 mg Q12H JOSÉ MIGUEL Administration Rosuvastatin Calcium 5 mg 12/21/18 22:00 12/23/18 21:27 Crestor PO 5 mg HS JOSÉ MIGUEL Administration Sodium Bicarbonate 1,300 mg 12/22/18 12:00 12/22/18 19:04 Sodium Bicarbonate Tab PO 1,300 mg Q6 JOSÉ MIGUEL Administration Sodium Bicarbonate 50 meq 12/22/18 08:45 12/22/18 20:46 Sodium Bicarbonate 8.4% (50 Meq) Vial IVP 50 meq Q4H JOSÉ MIGUEL Administration Tamsulosin HCl 0.4 mg 12/21/18 10:00 12/24/18 09:56 Flomax PO 0.4 mg DAILY JOSÉ MIGUEL Administration - Patient Studies Lab Studies: Microbiology Studies 12/21/18 05:53 Blood Culture - Preliminary Blood-Venous NO GROWTH AFTER 3 DAYS 12/21/18 05:53 Blood Culture - Preliminary Blood-Venous NO GROWTH AFTER 3 DAYS 12/21/18 09:41 Stool Culture - Final Stool NO SALMONELLA, SHIGELLA OR CAMPYLOBACTER ISOLATED. Lab Studies 12/24/18 12/24/18 12/24/18 Range/Units 08:11 06:12 06:12 WBC 8.7 (4.8-10.8) K/uL RBC 2.91 L (4.40-5.90) Mil/uL Hgb 9.5 L (12.0-18.0) g/dL Hct 28.9 L (35.0-51.0) % MCV 99.4 H D (80.0-94.0) fL MCH 32.6 H (27.0-31.0) pg MCHC 32.9 L (33.0-37.0) g/dL RDW 21.5 H (11.5-14.5) % Plt Count 58 L (130-400) K/uL MPV 10.9 (7.2-11.7) fL Neut % (Auto) 89.2 H (50.0-75.0) % Lymph % (Auto) 5.0 L (20.0-40.0) % [place] % (Auto) 5.3 (0.0-10.0) % Eos % (Auto) 0.1 (0.0-4.0) % Baso % (Auto) 0.4 (0.0-2.0) % Neut # (Auto) 7.7 H (1.8-7.0) K/uL Lymph # (Auto) 0.4 L (1.0-4.3) K/uL [place] # (Auto) 0.5 (0.0-0.8) K/uL Eos # (Auto) 0.0 (0.0-0.7) K/uL Baso # (Auto) 0.0 (0.0-0.2) K/uL Neutrophils % (Manual) 84 H (50-75) % Band Neutrophils % 9 H (0-2) % Lymphocytes % (Manual) 4 L (20-40) % Monocytes % (Manual) 3 (0-10) % Platelet Estimate Decreased L (NORMAL) Anisocytosis (manual) Moderate [place] Cells Slight PT 23.5 H (9.7-12.2) SECONDS INR 2.1 APTT 35 H (21-34) SECONDS Puncture Site pCO2 (35-45) mm/Hg pO2 (80-100) mm/Hg HCO3 (21-28) mmol/L ABG pH (7.35-7.45) ABG Total CO2 (22-28) mmol/L ABG O2 Saturation (95-98) % ABG Base Excess (-2.0-3.0) mmol/L ABG Hemoglobin (11.7-17.4) g/dL ABG Carboxyhemoglobin (0.5-1.5) % POC ABG HHb (Measured) (0.0-5.0) % ABG Methemoglobin (0.0-3.0) % Gregory Test Hgb O2 Saturation (95.0-98.0) % Liter Flow Crit Value Called To Crit Value Called By Crit Value Read Back Blood Gas Notified Time Sodium 137 (132-148) mmol/L Potassium 5.5 H (3.6-5.2) mmol/L Chloride 102 (98-107) mmol/L Carbon Dioxide 12 L (22-30) mmol/L Anion Gap 29 H (10-20) BUN 70 H (9-20) mg/dL Creatinine 5.3 H (0.8-1.5) mg/dL Est GFR ( Amer) 13 Est GFR (Non-Af Amer) 11 Random Glucose 73 L D (75-110) mg/dL Calcium 7.0 L (8.6-10.4) mg/dl Phosphorus 4.5 (2.5-4.5) mg/dL Magnesium 2.3 (1.6-2.3) mg/dL Total Bilirubin 7.4 H (0.2-1.3) mg/dL AST 1081 H (17-59) U/L ALT 206 H D (21-72) U/L Alkaline Phosphatase 507 H (38-126) U/L Total Protein 5.8 L (6.3-8.3) g/dL Albumin 3.2 L (3.5-5.0) g/dL Globulin 2.6 (2.2-3.9) gm/dL Albumin/Globulin Ratio 1.3 (1.0-2.1) Hep Bs Antigen (NEGATIVE) Hep Bs Ag Neutralizatn Hep Bs Antibody (NEGATIVE) Hep B Core IgM Ab (NEGATIVE) Hepatitis C Antibody (NEGATIVE) 12/24/18 12/22/18 12/22/18 Range/Units 05:23 14:28 14:28 WBC (4.8-10.8) K/uL RBC (4.40-5.90) Mil/uL Hgb (12.0-18.0) g/dL Hct (35.0-51.0) % MCV (80.0-94.0) fL MCH (27.0-31.0) pg MCHC (33.0-37.0) g/dL RDW (11.5-14.5) % Plt Count (130-400) K/uL MPV (7.2-11.7) fL Neut % (Auto) (50.0-75.0) % Lymph % (Auto) (20.0-40.0) % [place] % (Auto) (0.0-10.0) % Eos % (Auto) (0.0-4.0) % Baso % (Auto) (0.0-2.0) % Neut # (Auto) (1.8-7.0) K/uL Lymph # (Auto) (1.0-4.3) K/uL [place] # (Auto) (0.0-0.8) K/uL Eos # (Auto) (0.0-0.7) K/uL Baso # (Auto) (0.0-0.2) K/uL Neutrophils % (Manual) (50-75) % Band Neutrophils % (0-2) % Lymphocytes % (Manual) (20-40) % Monocytes % (Manual) (0-10) % Platelet Estimate (NORMAL) Anisocytosis (manual) [place] Cells PT (9.7-12.2) SECONDS INR APTT (21-34) SECONDS Puncture Site A-line pCO2 18 L* (35-45) mm/Hg pO2 88 (80-100) mm/Hg HCO3 13.6 L (21-28) mmol/L ABG pH 7.33 L (7.35-7.45) ABG Total CO2 10.1 L (22-28) mmol/L ABG O2 Saturation 98.6 H (95-98) % ABG Base Excess -14.6 L (-2.0-3.0) mmol/L ABG Hemoglobin 9.0 L (11.7-17.4) g/dL ABG Carboxyhemoglobin 1.7 H (0.5-1.5) % POC ABG HHb (Measured) 1.4 (0.0-5.0) % ABG Methemoglobin 0.2 (0.0-3.0) % Gregory Test Na Hgb O2 Saturation 96.8 (95.0-98.0) % Liter Flow 4.0 Crit Value Called To Jose carranaz Crit Value Called By Petra colon rt Crit Value Read Back Y Blood Gas Notified Time 550 Sodium (132-148) mmol/L Potassium (3.6-5.2) mmol/L Chloride (98-107) mmol/L Carbon Dioxide (22-30) mmol/L Anion Gap (10-20) BUN (9-20) mg/dL Creatinine (0.8-1.5) mg/dL Est GFR ( Amer) Est GFR (Non-Af Amer) Random Glucose (75-110) mg/dL Calcium (8.6-10.4) mg/dl Phosphorus (2.5-4.5) mg/dL Magnesium (1.6-2.3) mg/dL Total Bilirubin (0.2-1.3) mg/dL AST (17-59) U/L ALT (21-72) U/L Alkaline Phosphatase (38-126) U/L Total Protein (6.3-8.3) g/dL Albumin (3.5-5.0) g/dL Globulin (2.2-3.9) gm/dL Albumin/Globulin Ratio (1.0-2.1) Hep Bs Antigen Negative (NEGATIVE) Hep Bs Ag Neutralizatn Cancelled Hep Bs Antibody Negative (NEGATIVE) Hep B Core IgM Ab Negative (NEGATIVE) Hepatitis C Antibody Negative (NEGATIVE) Laboratory Results - last 24 hr 12/22/18 12/22/18 12/24/18 14:28 14:28 05:23 WBC RBC Hgb Hct MCV MCH MCHC RDW Plt Count MPV Neut % (Auto) Lymph % (Auto) [place] % (Auto) Eos % (Auto) Baso % (Auto) Neut # (Auto) Lymph # (Auto) [place] # (Auto) Eos # (Auto) Baso # (Auto) Neutrophils % (Manual) Band Neutrophils % Lymphocytes % (Manual) Monocytes % (Manual) Platelet Estimate Anisocytosis (manual) Keira Cells PT INR APTT Puncture Site A-line pCO2 18 L* pO2 88 HCO3 13.6 L ABG pH 7.33 L ABG Total CO2 10.1 L ABG O2 Saturation 98.6 H ABG Base Excess -14.6 L ABG Hemoglobin 9.0 L ABG Carboxyhemoglobin 1.7 H POC ABG HHb (Measured) 1.4 ABG Methemoglobin 0.2 Gregory Test Na Hgb O2 Saturation 96.8 Liter Flow 4.0 Crit Value Called To Jose carranza Crit Value Called By Petra colon rt Crit Value Read Back Y Blood Gas Notified Time 550 Sodium Potassium Chloride Carbon Dioxide Anion Gap BUN Creatinine Est GFR ( Amer) Est GFR (Non-Af Amer) Random Glucose Calcium Phosphorus Magnesium Total Bilirubin AST ALT Alkaline Phosphatase Total Protein Albumin Globulin Albumin/Globulin Ratio Hep Bs Antigen Negative Hep Bs Ag Neutralizatn Cancelled Hep Bs Antibody Negative Hep B Core IgM Ab Negative Hepatitis C Antibody Negative 12/24/18 12/24/18 12/24/18 06:12 06:12 08:11 WBC 8.7 RBC 2.91 L Hgb 9.5 L Hct 28.9 L MCV 99.4 H D MCH 32.6 H MCHC 32.9 L RDW 21.5 H Plt Count 58 L MPV 10.9 Neut % (Auto) 89.2 H Lymph % (Auto) 5.0 L [place] % (Auto) 5.3 Eos % (Auto) 0.1 Baso % (Auto) 0.4 Neut # (Auto) 7.7 H Lymph # (Auto) 0.4 L [place] # (Auto) 0.5 Eos # (Auto) 0.0 Baso # (Auto) 0.0 Neutrophils % (Manual) 84 H Band Neutrophils % 9 H Lymphocytes % (Manual) 4 L Monocytes % (Manual) 3 Platelet Estimate Decreased L Anisocytosis (manual) Moderate [place] Cells Slight PT 23.5 H INR 2.1 APTT 35 H Puncture Site pCO2 pO2 HCO3 ABG pH ABG Total CO2 ABG O2 Saturation ABG Base Excess ABG Hemoglobin ABG Carboxyhemoglobin POC ABG HHb (Measured) ABG Methemoglobin Gregory Test Hgb O2 Saturation Liter Flow Crit Value Called To Crit Value Called By Crit Value Read Back Blood Gas Notified Time Sodium 137 Potassium 5.5 H Chloride 102 Carbon Dioxide 12 L Anion Gap 29 H BUN 70 H Creatinine 5.3 H Est GFR ( Amer) 13 Est GFR (Non-Af Amer) 11 Random Glucose 73 L D Calcium 7.0 L Phosphorus 4.5 Magnesium 2.3 Total Bilirubin 7.4 H AST 1081 H ALT 206 H D Alkaline Phosphatase 507 H Total Protein 5.8 L Albumin 3.2 L Globulin 2.6 Albumin/Globulin Ratio 1.3 Hep Bs Antigen Hep Bs Ag Neutralizatn Hep Bs Antibody Hep B Core IgM Ab Hepatitis C Antibody Radiology Impressions: Radiology Impressions Chest X-Ray 12/24/18 06:00 Impression: Improved aeration in the lung garcia with persistent consolidation at the right lower lung zone. Critical Care Progress Note - Nutrition Nutrition: Nutrition Category Date Time Status Heart Healthy Diet [DIET] Diets 12/24/18 Lunch Active Attending/Attestation - Attestation I have personally seen and examined this patient.: Yes I have fully participated in the care of the patient.: Yes I have reviewed all pertinent clinical information: Yes Notes (Text): 12/24/18 17:05 Patient this morning was receiving hemodialysis. He is very weak. Bilateral edema and generalized anasarca noted. Abdominal distention also noted. Less than before. Poor appetite noted. Not eating well. Overall prognosis very poor. We will continue the supportive treatment.
[2018-12-24] MEDS: Cefepime IV 1 gm in Dextrose 1 GM/50 ML BAG IVPB SCH (17:04)
[2018-12-24] MEDS: Dextrose 50% SYRINGE Inj (50 ml) IV PRN (18:27)
--- NOTE | 2018-12-24 18:45 | US ---
Date of service: 12/24/2018 HISTORY: limited to liver and IVC COMPARISON: 12/21/2018. Abdominal ultrasound TECHNIQUE: Sonographic evaluation of the right upper quadrant of the abdomen. FINDINGS: LIVER: Measures 21.5 cm in length. Patent portal and hepatic venous systems. Portal venous flow: Hepatopetal. echogenicity of the liver parenchyma. No mass. No intrahepatic bile duct dilatation. GALLBLADDER: Cholelithiasis. Negative study for gallbladder wall thickening, pericholecystic fluid, sonographic Cortez's sign. COMMON BILE DUCT: Measures 5.9 mm. No stones. No dilatation. PANCREAS: Unremarkable as visualized. No mass. No ductal dilatation. AORTA: No aneurysmal dilatation. IVC: Unremarkable. OTHER FINDINGS: None . IMPRESSION: Hepatomegaly. No focal hepatic masses. Redemonstration of right upper quadrant ascites. Gallstones/sludge. No evidence of gallbladder wall thickening or sonographic Cortez's sign.
--- NOTE | 2018-12-24 19:55 | CP.PCM.PN ---
Subjective - Date & Time of Evaluation Date of Evaluation: 12/24/18 Time of Evaluation: 19:54 - Subjective Subjective: pt is seen and examined, follow up consult is dictated #[id number] covering Objective - Vital Signs/Intake and Output Vital Signs (last 24 hours): Temp Pulse Resp BP Pulse Ox 96.6 F L 101 H 22 94/59 L 84 L 12/24/18 16:00 12/24/18 18:55 12/24/18 18:55 12/24/18 18:55 12/24/18 18:00 Intake and Output: 12/24/18 12/25/18 18:59 06:59 Intake Total 254 12 Output Total 281 0 Balance -27 12 - Medications Medications: Current Medications Dextrose (Dextrose 50% Inj) 0 ml IV STAT PRN; Protocol PRN Reason: Hypoglycemia Protocol Last Admin: 12/24/18 18:27 Dose: 50 ml Dextrose (Glutose 15) 0 gm PO ONCE PRN; Protocol PRN Reason: Hypoglycemia Protocol Glucagon (Glucagen Diagnostic Kit) 0 mg IM STAT PRN; Protocol PRN Reason: Hypoglycemia Protocol Home Med (Patient's Own Medication) 1 tab PO DAILY [facility] Last Admin: 12/24/18 09:56 Dose: 1 tab Hydrocortisone Sodium Succinate (Solu-Cortef) 100 mg IV Q8H [facility] Last Admin: 12/24/18 17:03 Dose: 100 mg Cefepime HCl (Maxipime Iv 1 Gm Premix) 1 gm in 50 mls @ 100 mls/hr IVPB Q24H [facility]; Protocol Last Admin: 12/24/18 17:04 Dose: 100 mls/hr Vasopressin 40 units/ Dextrose 42 mls @ 0.63 mls/hr IV .Q24H [facility]; Protocol Last Admin: 12/24/18 05:41 Dose: Not Given Dopamine HCl/Dextrose (Dopamine 400mg/250ml D5w) 400 mg in 250 mls @ 17.929 mls/hr IV .[id number] PRN; Protocol PRN Reason: TITRATE PER MD ORDER Last Admin: 12/24/18 01:33 Dose: 4.68 mcg/kg/min, 12 mls/hr Levothyroxine Sodium (Synthroid) 50 mcg PO DAILY@0630 [facility] Last Admin: 12/24/18 06:31 Dose: 50 mcg Pantoprazole Sodium (Protonix Inj) 40 mg IVP Q12H [facility] Last Admin: 12/24/18 09:55 Dose: 40 mg Rosuvastatin Calcium (Crestor) 5 mg PO HS [facility] Last Admin: 12/23/18 21:27 Dose: 5 mg Sodium Bicarbonate (Sodium Bicarbonate Tab) 1,300 mg PO Q6 [facility] Last Admin: 12/22/18 19:04 Dose: 1,300 mg Sodium Bicarbonate (Sodium Bicarbonate 8.4% (50 Meq) Vial) 50 meq IVP Q4H [facility] Last Admin: 12/22/18 20:46 Dose: 50 meq Tamsulosin HCl (Flomax) 0.4 mg PO DAILY [facility] Last Admin: 12/24/18 09:56 Dose: 0.4 mg - Labs Labs: 12/24/18 06:12 12/24/18 06:12 PT 23.5 SECONDS (9.7-12.2) H 12/24/18 08:11 INR 2.1 12/24/18 08:11 APTT 35 SECONDS (21-34) H 12/24/18 08:11
[2018-12-24] MEDS ORDERED: Phytonadione 10 mg/ml Inj (Adult) IV STA (22:06)
[2018-12-24 22:56] LABS: ALB/GLOB RATIO 1.3 (1.0-2.1); ALBUMIN 3.3 g/dL (3.5-5.0); CALCIUM 6.9 mg/dl (8.6-10.4)
--- NOTE | 2018-12-24 23:16 | CP.PCM.PN ---
Subjective - Date & Time of Evaluation Date of Evaluation: 12/24/18 Time of Evaluation: 07:00 - Subjective Subjective: events noted pansensitive E Coli UTI/Sepsis on HD in NAD Objective - Vital Signs/Intake and Output Vital Signs (last 24 hours): Temp Pulse Resp BP Pulse Ox 95.8 F L 108 H 15 101/52 L 98 12/24/18 12:00 12/24/18 12:00 12/24/18 12:00 12/24/18 12:00 12/24/18 10:15 Intake and Output: 12/24/18 12/24/18 06:59 18:59 Intake Total 444 132 Output Total 10 17 Balance 434 115 - Medications Medications: Current Medications Dextrose (Dextrose 50% Inj) 0 ml IV STAT PRN; Protocol PRN Reason: Hypoglycemia Protocol Dextrose (Glutose 15) 0 gm PO ONCE PRN; Protocol PRN Reason: Hypoglycemia Protocol Glucagon (Glucagen Diagnostic Kit) 0 mg IM STAT PRN; Protocol PRN Reason: Hypoglycemia Protocol Home Med (Patient's Own Medication) 1 tab PO DAILY [facility] Last Admin: 12/24/18 09:56 Dose: 1 tab Hydrocortisone Sodium Succinate (Solu-Cortef) 100 mg IV Q8H [facility] Last Admin: 12/24/18 09:55 Dose: 100 mg Cefepime HCl (Maxipime Iv 1 Gm Premix) 1 gm in 50 mls @ 100 mls/hr IVPB Q24H [facility]; Protocol Last Admin: 12/23/18 17:41 Dose: 100 mls/hr Vasopressin 40 units/ Dextrose 42 mls @ 0.63 mls/hr IV .Q24H [facility]; Protocol Last Admin: 12/24/18 05:41 Dose: Not Given Dopamine HCl/Dextrose (Dopamine 400mg/250ml D5w) 400 mg in 250 mls @ 17.929 mls/hr IV .[id number] PRN; Protocol PRN Reason: TITRATE PER MD ORDER Last Admin: 12/24/18 01:33 Dose: 4.68 mcg/kg/min, 12 mls/hr Levothyroxine Sodium (Synthroid) 50 mcg PO DAILY@0630 [facility] Last Admin: 12/24/18 06:31 Dose: 50 mcg Pantoprazole Sodium (Protonix Inj) 40 mg IVP Q12H [facility] Last Admin: 04/15/19 09:55 Dose: 40 mg Rosuvastatin Calcium (Crestor) 5 mg PO HS [facility] Last Admin: 12/23/18 21:27 Dose: 5 mg Sodium Bicarbonate (Sodium Bicarbonate Tab) 1,300 mg PO Q6 [facility] Last Admin: 12/22/18 19:04 Dose: 1,300 mg Sodium Bicarbonate (Sodium Bicarbonate 8.4% (50 Meq) Vial) 50 meq IVP Q4H [facility] Last Admin: 12/22/18 20:46 Dose: 50 meq Tamsulosin HCl (Flomax) 0.4 mg PO DAILY [facility] Last Admin: 12/24/18 09:56 Dose: 0.4 mg - Labs Labs: 12/24/18 06:12 12/24/18 06:12 PT 23.5 SECONDS (9.7-12.2) H 12/24/18 08:11 INR 2.1 12/24/18 08:11 APTT 35 SECONDS (21-34) H 12/24/18 08:11 - Constitutional Appears: Non-toxic, No Acute Distress, Confused, Cachectic, Chronically Ill - Head Exam Head Exam: ATRAUMATIC, NORMAL INSPECTION, NORMOCEPHALIC - Eye Exam Eye Exam: EOMI, Normal appearance, PERRL Pupil Exam: NORMAL ACCOMODATION, PERRL - ENT Exam ENT Exam: Mucous Membranes Moist, Normal Exam - Neck Exam Neck Exam: Full ROM, Normal Inspection. absent: Lymphadenopathy - Respiratory Exam Respiratory Exam: Clear to Ausculation Bilateral, NORMAL BREATHING PATTERN - Cardiovascular Exam Cardiovascular Exam: REGULAR RHYTHM, +S1, +S2. absent: Murmur - GI/Abdominal Exam GI & Abdominal Exam: Distended, Soft, Tenderness, Diminished Bowel Sounds, Organomegaly - Rectal Exam Rectal Exam: Deferred - Exam Exam: NORMAL INSPECTION - Extremities Exam Extremities Exam: Normal Capillary Refill, Pedal Edema. absent: Joint Swelling, Normal Inspection - Back Exam Back Exam: NORMAL INSPECTION - Neurological Exam Neurological Exam: Altered, CN II-XII Intact Neuro motor strength exam: Left Upper Extremity: 3, Right Upper Extremity: 3, Left Lower Extremity: 3, Right Lower Extremity: 3 - Psychiatric Exam Psychiatric exam: Depressed - Skin Skin Exam: Dry, Intact Assessment and Plan (1) UTI (urinary tract infection) Status: Acute (2) MAHIN (acute kidney injury) Status: Acute (3) Anemia Status: Acute (4) Opiate overdose Status: Acute (5) Abdominal distension Status: Acute (6) Acute exacerbation of CHF (congestive heart failure) Status: Acute (7) Afib Status: Acute (8) Anasarca Status: Acute (9) Ascites Status: Acute (10) CHF (congestive heart failure) Status: Acute (11) Elevated brain natriuretic peptide (BNP) level Status: Acute (12) Malignant ascites Status: Acute (13) Pain from bone metastases Status: Acute (14) Prostate CA Status: Acute (15) Severe back pain Status: Acute (16) Stage IV adenocarcinoma of prostate Status: Acute (17) HTN (hypertension) Status: Chronic (18) History of coronary artery disease Status: Chronic (19) History of prostate cancer Status: Chronic - Assessment and Plan (Free Text) Assessment: cont IV antibiotics for urosepsis for 14 days
[2018-12-24] MEDS: Lactulose 10 gm/15 ml (Rectal Use) PR SCH ×2 (23:23→23:37)
--- NOTE | 2018-12-25 04:17 | CP.PCM.PN ---
Subjective - Date & Time of Evaluation Date of Evaluation: 12/24/18 Time of Evaluation: 08:20 - Subjective Subjective: dcit Objective - Vital Signs/Intake and Output Vital Signs (last 24 hours): Temp Pulse Resp BP Pulse Ox 96.9 F L 91 H 21 112/71 80 L 12/25/18 00:00 12/25/18 02:55 12/25/18 02:55 12/25/18 02:55 12/25/18 01:55 Intake and Output: 12/24/18 12/25/18 18:59 06:59 Intake Total 254 358 Output Total 281 0 Balance -27 358 - Medications Medications: Current Medications Dextrose (Dextrose 50% Inj) 0 ml IV STAT PRN; Protocol PRN Reason: Hypoglycemia Protocol Last Admin: 12/24/18 18:27 Dose: 50 ml Dextrose (Glutose 15) 0 gm PO ONCE PRN; Protocol PRN Reason: Hypoglycemia Protocol Glucagon (Glucagen Diagnostic Kit) 0 mg IM STAT PRN; Protocol PRN Reason: Hypoglycemia Protocol Home Med (Patient's Own Medication) 1 tab PO DAILY [facility] Last Admin: 12/24/18 09:56 Dose: 1 tab Hydrocortisone Sodium Succinate (Solu-Cortef) 100 mg IV Q8H [facility] Last Admin: 12/25/18 01:00 Dose: 100 mg Cefepime HCl (Maxipime Iv 1 Gm Premix) 1 gm in 50 mls @ 100 mls/hr IVPB Q24H [facility]; Protocol Last Admin: 12/24/18 17:04 Dose: 100 mls/hr Vasopressin 40 units/ Dextrose 42 mls @ 0.63 mls/hr IV .Q24H [facility]; Protocol Last Admin: 12/24/18 05:41 Dose: Not Given Dopamine HCl/Dextrose (Dopamine 400mg/250ml D5w) 400 mg in 250 mls @ 17.929 mls/hr IV .[id number] PRN; Protocol PRN Reason: TITRATE PER MD ORDER Last Admin: 12/24/18 21:35 Dose: 4.68 mcg/kg/min, 12 mls/hr Lactulose (Generlac) 200 gm [place] BID [facility] Last Admin: 12/24/18 23:37 Dose: Not Given Levothyroxine Sodium (Synthroid) 50 mcg PO DAILY@0630 [facility] Last Admin: 12/24/18 06:31 Dose: 50 mcg Pantoprazole Sodium (Protonix Inj) 40 mg IVP Q12H [facility] Last Admin: 12/24/18 21:35 Dose: 40 mg Rosuvastatin Calcium (Crestor) 5 mg PO HS [facility] Last Admin: 12/24/18 21:35 Dose: 5 mg Sodium Bicarbonate (Sodium Bicarbonate Tab) 1,300 mg PO Q6 [facility] Last Admin: 12/22/18 19:04 Dose: 1,300 mg Sodium Bicarbonate (Sodium Bicarbonate 8.4% (50 Meq) Vial) 50 meq IVP Q4H [facility] Last Admin: 12/22/18 20:46 Dose: 50 meq Tamsulosin HCl (Flomax) 0.4 mg PO DAILY [facility] Last Admin: 12/24/18 09:56 Dose: 0.4 mg - Labs Labs: 12/24/18 06:12 12/24/18 22:28 PT 23.5 SECONDS (9.7-12.2) H 12/24/18 08:11 INR 2.1 12/24/18 08:11 APTT 35 SECONDS (21-34) H 12/24/18 08:11
--- NOTE | 2018-12-25 04:39 | PN ---
DATE: 12/24/2018 LOCATION: The patient is located in ICU, bed 17. REQUESTED BY: Gregory Thrasher MD Covering Dr. Blevins. REASON FOR FOLLOWUP: Renal failure, on hemodialysis. SUBJECTIVE: Mr. Fair is a 78-year-old male with a past medical history significant for cirrhosis of the liver, ascites, stage IV prostate CA, found lethargic by with some pain medicine spilled on to the ground, of unclear overdose by accident, 911 was called by the family and EMS found the patient lethargic with pinpoint pupils and desaturating and hypotensive. Narcan 0.4 mg was given with adequate response and also given IV fluids with improvement of the pressure. Subsequently, the patient was admitted to ICU. The patient has a history of arthritis, CAD, CHF, gastritis, hypertension, prostate CA. His BUN and creatinine on admission was 74/5.5. The patient is on hemodialysis. The patient is not in distress, awake. The patient underwent hemodialysis today without any complications, had UF only about 500 mL post dialysis. PHYSICAL EXAMINATION: VITAL SIGNS: Blood pressure 113/58, pulse 95, respirations 20 and temperature 95. GENERAL: Mr. Fair is a 78-year-old elderly male, moderately built, moderate nourished, not in distress. HEENT: Pupils normal, reactive to light and accommodation. Conjunctivae pink. Sclerae are anicteric. Tongue is moist. Trachea is midline. LUNGS: Symmetric on both sides. Bilateral breath sounds present. No crackles. CARDIOVASCULAR SYSTEM: [place] at the fifth intercostal space, midclavicular line. S1 and S2 audible. No murmur or gallop. ABDOMEN: Slightly protuberant, soft, tympanic. No guarding. No rigidity. No hepatosplenomegaly. CENTRAL NERVOUS SYSTEM: The patient is awake, oriented x1 to 2. Sensory and motor system is within normal limits. EXTREMITIES: No cyanosis, no clubbing, no edema. CURRENT MEDICATIONS: Include as follows. Crestor 5 mg at bedtime, Flomax 0.4 mg p.o. daily, lactulose, also Maxipime 1 g every 24 hours, Solu-Cortef 100 mg IV every 8 hours, sodium bicarb on hold, Synthroid 50 mcg daily and vasopressin. LABORATORY DATA: Include as follows: As of 12/24/2018, WBC 8.7, hemoglobin 9.5, hematocrit is 28.9, platelets 58. PT 23.5, INR 2.1 and PTT 35. Sodium 137, potassium 5.5, chloride 102, CO2 of 12, BUN 50, creatinine 5.3, glucose 73, calcium is 7, phosphorus 4.5, magnesium 2.3. Total bili 7.4, AST 1081, ALT 206, alkaline phosphatase 507, total protein 5, albumin is 3.2. Ultrasound of the abdomen as of 12/24/2018, impression, hepatomegaly, no focal hepatic masses, re-demonstration of the right upper quadrant ascites, gallstones or sludge, no evidence of gallbladder wall thickening or sonographic Cortez's sign. Chest x-ray as of 12/24/2018, impression, improved aeration of the lung garcia with persistent consolidation in right lower lung zones. In summary, Mr. Fair is about a 78-year-old elderly male with history of hypertension, cirrhosis of the liver, ascites, prostate carcinoma stage IV, was admitted with questionable overdose of the medication and hypotension and found to have acute renal failure, chronic kidney disease, started on hemodialysis. 1. Acute renal failure on chronic kidney disease versus progression of the chronic kidney disease to end-stage renal disease. 2. Stage IV prostate carcinoma. 3. Hypertension. 4. Abnormal liver function test, rule out metastatic disease. 5. Right lung pneumonia. PLAN: Continue IV antibiotics as per ID recommendation, cefepime and adjust renal dose and continue Synthroid. Continue Flomax and Crestor. Covering Dr. Blevins. The patient underwent hemodialysis, stable treatment, had UF about 500 mL only. Nighat Wallace MD
[2018-12-25] MEDS: Vasopressin 40 UNITS in Dextrose 5% In Water 40 ML IV SCH (05:21)
[2018-12-25 06:22] LABS: MEAN CELL VOLUME 98.7 fL (80.0-94.0); MEAN CORPUSCULAR HEMOGLOBIN 32.6 pg (27.0-31.0); MEAN PLATELET VOLUME 10.4 fL (7.2-11.7); PLATELET COUNT 44 K/uL (130-400); RBC 2.76 Mil/uL (4.40-5.90); RED CELL DISTRIBUTION WIDTH 20.8 % (11.5-14.5); WHITE BLOOD COUNT 9.1 K/uL (4.8-10.8)
[2018-12-25] MEDS: Levothyroxine 50 MCG TAB PO SCH (06:38)
[2018-12-25] MEDS: Dextrose 50% SYRINGE Inj (50 ml) IV PRN (06:42)
[2018-12-25 06:44] LABS: ALB/GLOB RATIO 1.4 (1.0-2.1); ALBUMIN 3.4 g/dL (3.5-5.0)
[2018-12-25 09:00] LABS: ARTERIAL BLOOD GAS HCO3 14.9 mmol/L (21-28); ARTERIAL BLOOD GAS O2 SAT 99.8 % (95-98); ARTERIAL BLOOD GAS PCO2 17 mm/Hg (35-45); ARTERIAL BLOOD GAS PH 7.37 (7.35-7.45); ARTERIAL BLOOD GAS PO2 99 mm/Hg (80-100); ARTERIAL BLOOD GAS TCO2 10.3 mmol/L (22-28)
[2018-12-25] MEDS: DOPamine 400mg/250ml D5W 400 MG/250 ML BAG IV PRN ×2 (10:00→22:03)
--- NOTE | 2018-12-25 10:02 | PN ---
DATE: 12/25/2018 LOCATION: ICU 17. SUBJECTIVE: This is a 78-year-old male seen initially for GI consultation on 12/24/2018, reexamined again today in the presence of the staff, in the intensive care unit, appeared to be somewhat lethargic, slightly confused but no reported actual chest pain, palpitation or significant increase of shortness of breath. No reported GI bleeding. Abdominal ultrasound showed evidence of hepatomegaly with right upper quadrant ascites as well as gallstone and sludge. Most recent lab results today showed hemoglobin of 9, subsequently drop than before with hematocrit 27.2 with thrombocytopenia of 44. PT and PTT have been elevated before. CO2 content of 13 indicative of severe metabolic acidosis with BUN of 52, creatinine 4.1 with evidence of acute renal failure. Blood glucose level went down to 57 and the calcium 7. AST of 1144, ALT 205, alkaline phosphatase 572, albumin 3.4, total protein 5.8. PHYSICAL EXAMINATION: GENERAL: This is a 78-year-old male who appears to be somewhat lethargic. VITAL SIGNS: Afebrile with pulse of 102, respiratory rate 20-22, blood pressure 98/66. HEENT: Showed pale, dry oral mucous membrane. Nonicteric sclerae. LUNGS: Few scattered crepitation. Decreased air entry at the bases bilaterally. HEART: Positive S1 and S2. ABDOMEN: Soft with mild generalized tenderness with small amount of ascites. No other mass or organomegaly. No rebound tenderness or guarding, but mild generalized tenderness. EXTREMITIES: Lower extremities with mild edematous changes. No clubbing or cyanosis. NEUROLOGIC: No reported new neurological deficits, sensory or motor. No reported new focal deficits. IMPRESSION: 1. Anemia that could be secondary to gastrointestinal blood loss, upper versus lower versus anemia secondary to chronic disease. 2. Reported drug overdose of pain killer recently. 3. Abnormal liver function test with thrombocytopenia as well as abnormal ultrasound of the abdomen indicative of possible cholelithiasis, small amount of ascites. 4. Acute chemical hepatitis with subsequent indication of early hepatic failure with renal failure. The possibility of hepatorenal syndrome was raised in early stage. 5. Metabolic acidosis secondary to above. 6. Stage IV prostatic carcinoma with possible mets. 7. Pneumonia by recent chest x-ray. 8. Evidence of liver cirrhosis with portal hypertension, may need an ultrasound and abdominal paracentesis by the IR staff when he is more stable clinically. 9. Reported recent history of urinary tract infection positive for Escherichia coli. 10. Known history but not limited to hypertension, congestive heart failure, coronary artery disease with osteoarthritis. SUGGESTIONS: 1. Continue current management. 2. MRCP when the patient is more stable clinically. 3. Cancer markers including CEA and alpha-fetoprotein. 4. Repeat hepatitis profile with monospot. 5. Further recommendation to follow. Halle Tran MD
[2018-12-25 10:03] LABS: LYMPH # 0.7 K/uL (1.0-4.3); MONO # 0.1 K/uL (0.0-0.8); NEUT # 8.3 K/uL (1.8-7.0)
[2018-12-25 10:06] LABS: ANISOCYTOSIS MODERATE; BANDS 9 % (0-2); LYMPHOCYTE 4 % (20-40); MONOCYTE 3 % (0-10); NEUTROPHIL 84 % (50-75); NUCLEATED RED BLOOD CELL 1 % (0-0); PLATELET ESTIMATE DECREASED (NORMAL); POIKILOCYTOSIS SLIGHT; TOTAL CELLS COUNTED 100
[2018-12-25 10:07] LABS: BURR CELLS SLIGHT; OVALOCYTES SLIGHT
[2018-12-25] MEDS: BICALUTAMIDE 50 MG PO SCH (10:47)
[2018-12-25] MEDS: Lactulose 10 gm/15 ml (Rectal Use) PR SCH (10:57)
--- NOTE | 2018-12-25 11:15 | CP.PCM.PN ---
Subjective - Date & Time of Evaluation Date of Evaluation: 12/25/18 Time of Evaluation: 07:15 - Subjective Subjective: Nephro consult note for Dr. Gen Hassan DO, IM PGY-3 Patient seen and examined in the ICU. Somnolent but arousable, but mostly non- verbal, moaning and only giving few one-words answers. Shakes head no when asked if in pain. Able to follow simple commands. Currently remains on dopamine drip for BP support. Objective - Vital Signs/Intake and Output Vital Signs (last 24 hours): Temp Pulse Resp BP Pulse Ox 97.6 F 107 H 19 104/63 64 L 12/25/18 10:10 12/25/18 10:34 12/25/18 10:34 12/25/18 10:34 12/25/18 10:34 Intake and Output: 12/25/18 12/25/18 06:59 18:59 Intake Total 385.4 35.9 Output Total 0 Balance 385.4 35.9 - Medications Medications: Current Medications Dextrose (Dextrose 50% Inj) 0 ml IV STAT PRN; Protocol PRN Reason: Hypoglycemia Protocol Last Admin: 12/25/18 06:42 Dose: 50 ml Dextrose (Glutose 15) 0 gm PO ONCE PRN; Protocol PRN Reason: Hypoglycemia Protocol Glucagon (Glucagen Diagnostic Kit) 0 mg IM STAT PRN; Protocol PRN Reason: Hypoglycemia Protocol Home Med (Patient's Own Medication) 1 tab PO DAILY [facility] Last Admin: 12/25/18 10:47 Dose: 1 tab Hydrocortisone Sodium Succinate (Solu-Cortef) 100 mg IV Q8H [facility] Last Admin: 12/25/18 10:47 Dose: 100 mg Cefepime HCl (Maxipime Iv 1 Gm Premix) 1 gm in 50 mls @ 100 mls/hr IVPB Q24H [facility]; Protocol Last Admin: 12/24/18 17:04 Dose: 100 mls/hr Vasopressin 40 units/ Dextrose 42 mls @ 0.63 mls/hr IV .Q24H [facility]; Protocol Last Admin: 12/25/18 05:21 Dose: Not Given Lactulose (Generlac) 200 gm [place] BID [facility] Last Admin: 12/24/18 23:37 Dose: Not Given Levothyroxine Sodium (Synthroid) 50 mcg PO DAILY@0630 [facility] Last Admin: 12/25/18 06:38 Dose: 50 mcg Pantoprazole Sodium (Protonix Inj) 40 mg IVP Q12H [facility] Last Admin: 12/25/18 10:46 Dose: 40 mg Rosuvastatin Calcium (Crestor) 5 mg PO HS [facility] Last Admin: 12/24/18 21:35 Dose: 5 mg Sodium Bicarbonate (Sodium Bicarbonate Tab) 1,300 mg PO Q6 [facility] Last Admin: 12/22/18 19:04 Dose: 1,300 mg Sodium Bicarbonate (Sodium Bicarbonate 8.4% (50 Meq) Vial) 50 meq IVP Q4H [facility] Last Admin: 12/22/18 20:46 Dose: 50 meq Tamsulosin HCl (Flomax) 0.4 mg PO DAILY [facility] Last Admin: 12/25/18 10:47 Dose: 0.4 mg - Labs Labs: 12/25/18 06:13 12/25/18 06:13 PT 23.5 SECONDS (9.7-12.2) H 12/24/18 08:11 INR 2.1 12/24/18 08:11 APTT 35 SECONDS (21-34) H 12/24/18 08:11 - Additional Findings Additional findings: - Constitutional Appears: Chronically Ill, Altered/Confused - Head Exam Head Exam: ATRAUMATIC, NORMAL INSPECTION, NORMOCEPHALIC - Eye Exam Eye Exam: Normal appearance. absent: Conjunctival injection, Scleral icterus - ENT Exam ENT Exam: Mucous Membranes Moist - Neck Exam Neck exam: Positive for: Normal Inspection. Negative for: Lymphadenopathy - Respiratory Exam Respiratory Exam: Mild bi-basilar ronchi, otherwise clear to auscultation, no wheezes/rales, no accessory muscle use, no respiratory distress - Cardiovascular Exam Cardiovascular Exam: Tachycardia, regular rhythm, +S1, +S2, JVD. absent: Bradycardia, Irregular Rhythm - GI/Abdominal Exam GI & Abdominal Exam: Diminished Bowel Sounds, Firm but not rigid. absent: Distended, Hyperactive Bowel Sounds, Hypoactive Bowel Sounds, Normal Bowel Sounds - Extremities Exam Extremities exam: Positive for: pedal pulses present. 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 Nephro consu lted for acutely elevated Cr concerning for renal failure. Plan: 1) acute renal failure 2) Opiate overdose requiring Narcan 3) Shock requiring pressor support Septic vs Cardiogenic 4) Cirrhosis with ascites 5) HFrEF (15-20%) 6) Stage IV prostate Ca with spinal mets 7) Acidosis with worsening lactate 8) Afib 9) Acutely worsening LFTs -likely renal failure is 2/2 shock state, suspect infectious component and hypovolemic component, possible ATN Hx stage IV prostate Ca and difficult to access with gill, but no hydronephrosis on renal US so unlikely this is obstructive etiology Cr 5.5 on admission, improved to 3.8 post-HD yesterday, increased to 4.1 this AM S/p HD yesterday, 1L UF removed, plan for another 1-1.5L removal today Net positive ~8.3L this admission, but remains hypotensive, on Dopamine for pressor support -Initial Urine Cx notable for alvarez-sensitive E coli and initial blood cultures were negative, but with worsening lactate and persistent shock, concern for other infectious process, new blood cultures ordered -Elevated trop likely 2/2 renal leak +/- myocardial ischemia 2/2 hypoperfusion, resolved Pending Echo -Underwent HD yesterday (1L removed); CXR today and lung exams not suggestive of significant fluid overload -Lactate continues to worsen, from 3.6 on 12/23 to 11.5 today Possibly some elevation 2/2 worsening hepatic function (can't clear) Abd US negative for hepatic masses, so less likely mets from prostate Ca, pending CT abd/pelvis Possible worsening sepsis, pending repeat blood cultures Avoid further bicarb to prevent worsening overload Patient seen, reviewed, and discussed with attending, Dr. Blevins
--- NOTE | 2018-12-25 11:57 | CP.PCM.PN ---
Subjective - Date & Time of Evaluation Date of Evaluation: 12/25/18 Time of Evaluation: 08:00 - Subjective Subjective: seen on HD weak and lethargic Objective - Vital Signs/Intake and Output Vital Signs (last 24 hours): Temp Pulse Resp BP Pulse Ox 97.6 F 111 H 26 H 97/67 L 91 L 12/25/18 10:10 12/25/18 11:34 12/25/18 11:34 12/25/18 11:34 12/25/18 11:34 Intake and Output: 12/25/18 12/25/18 06:59 18:59 Intake Total 385.4 214.3 Output Total 0 Balance 385.4 214.3 - Medications Medications: Current Medications Dextrose (Dextrose 50% Inj) 0 ml IV STAT PRN; Protocol PRN Reason: Hypoglycemia Protocol Last Admin: 12/25/18 06:42 Dose: 50 ml Dextrose (Glutose 15) 0 gm PO ONCE PRN; Protocol PRN Reason: Hypoglycemia Protocol Glucagon (Glucagen Diagnostic Kit) 0 mg IM STAT PRN; Protocol PRN Reason: Hypoglycemia Protocol Home Med (Patient's Own Medication) 1 tab PO DAILY JOSÉ MIGUEL Last Admin: 12/25/18 10:47 Dose: 1 tab Hydrocortisone Sodium Succinate (Solu-Cortef) 100 mg IV Q8H JOSÉ MIGUEL Last Admin: 12/25/18 10:47 Dose: 100 mg Cefepime HCl (Maxipime Iv 1 Gm Premix) 1 gm in 50 mls @ 100 mls/hr IVPB Q24H JOSÉ MIGUEL; Protocol Last Admin: 12/24/18 17:04 Dose: 100 mls/hr Vasopressin 40 units/ Dextrose 42 mls @ 0.63 mls/hr IV .Q24H JOSÉ MIGUEL; Protocol Last Admin: 12/25/18 05:21 Dose: Not Given Dopamine HCl/Dextrose (Dopamine 400mg/250ml D5w) 400 mg in 250 mls @ 5.239 mls/hr IV .Q24H PRN; Protocol PRN Reason: TITRATE PER MD ORDER Last Titration: 12/25/18 11:44 Dose: 6.83 mcg/kg/min, 17.9 mls/hr Gentamicin Sulfate 160 mg/ (Sodium Chloride) 104 mls @ 100 mls/hr IVPB ONCE ONE; Protocol Stop: 12/25/18 15:02 Levothyroxine Sodium (Synthroid) 50 mcg PO DAILY@0630 [facility] Last Admin: 12/25/18 06:38 Dose: 50 mcg Pantoprazole Sodium (Protonix Inj) 40 mg IVP Q12H [facility] Last Admin: 12/25/18 10:46 Dose: 40 mg Rosuvastatin Calcium (Crestor) 5 mg PO HS [facility] Last Admin: 12/24/18 21:35 Dose: 5 mg Sodium Bicarbonate (Sodium Bicarbonate Tab) 1,300 mg PO Q6 [facility] Last Admin: 12/22/18 19:04 Dose: 1,300 mg Sodium Bicarbonate (Sodium Bicarbonate 8.4% (50 Meq) Vial) 50 meq IVP Q4H [facility] Last Admin: 12/22/18 20:46 Dose: 50 meq Tamsulosin HCl (Flomax) 0.4 mg PO DAILY [facility] Last Admin: 12/25/18 10:47 Dose: 0.4 mg - Labs Labs: 12/25/18 06:13 12/25/18 06:13 PT 23.5 SECONDS (9.7-12.2) H 12/24/18 08:11 INR 2.1 12/24/18 08:11 APTT 35 SECONDS (21-34) H 12/24/18 08:11 - Constitutional Appears: Confused, Cachectic, Chronically Ill - Head Exam Head Exam: NORMOCEPHALIC - Eye Exam Eye Exam: absent: Scleral icterus Pupil Exam: NORMAL ACCOMODATION - ENT Exam ENT Exam: Mucous Membranes Dry - Neck Exam Neck Exam: absent: Lymphadenopathy - Respiratory Exam Respiratory Exam: Decreased Breath Sounds - Cardiovascular Exam Cardiovascular Exam: REGULAR RHYTHM - GI/Abdominal Exam GI & Abdominal Exam: Distended, Soft - Rectal Exam Rectal Exam: Deferred - Exam Exam: Scrotal Swelling - Extremities Exam Extremities Exam: Pedal Edema. absent: Tenderness - Back Exam Back Exam: absent: CVA tenderness (L), CVA tenderness (R) - Neurological Exam Neurological Exam: Altered - Psychiatric Exam Psychiatric exam: Depressed - Skin Skin Exam: Dry Assessment and Plan (1) UTI (urinary tract infection) Status: Acute (2) MAHIN (acute kidney injury) Status: Acute (3) Anemia Status: Acute (4) Opiate overdose Status: Acute (5) Abdominal distension Status: Acute (6) Acute exacerbation of CHF (congestive heart failure) Status: Acute (7) Afib Status: Acute (8) Anasarca Status: Acute (9) Ascites Status: Acute (10) CHF (congestive heart failure) Status: Acute (11) Elevated brain natriuretic peptide (BNP) level Status: Acute (12) Malignant ascites Status: Acute (13) Pain from bone metastases Status: Acute (14) Prostate CA Status: Acute (15) Severe back pain Status: Acute (16) Stage IV adenocarcinoma of prostate Status: Acute (17) HTN (hypertension) Status: Chronic (18) History of coronary artery disease Status: Chronic (19) History of prostate cancer Status: Chronic - Assessment and Plan (Free Text) Assessment: stage IV Prostate CA septic shock' resp failure cirrhosis renal failure UTI cont supportive measures poor prognosis
--- NOTE | 2018-12-25 12:22 | PN ---
DATE: 12/25/2018 SUBJECTIVE: The patient is literally more awake. The patient is afebrile. His sugar was low. The patient received D50. He denies any nausea, vomiting. He is status post dialysis session. PHYSICAL EXAMINATION: VITAL SIGNS: Blood pressure 89/53, pulse 93, respiratory rate 20, temperature 98. HEART: His heart rhythm is irregularly regular. CARDIOVASCULAR SYSTEM: S1, S2. Regular. ABDOMEN: Soft, nontender. Bowel sounds are positive. CENTRAL NERVOUS SYSTEM: The patient is arousable. ASSESSMENT: 1. Hypoglycemia with . 2. Acute kidney injury. The patient is status post dialysis. 3. Prostate cancer stage 4. PLAN: Continue to monitor the patient in ICU, observe the patient, and the patient is improving. Gregory Thrasher MD
--- NOTE | 2018-12-25 12:52 | CP.CCUPN ---
<Nitish Broussard - Last Filed: 12/25/18 12:49> CCU Subjective - Physician Review Subjective (Free Text): 12/24/18 14:46 PGY-1 Critical Care Progeress Note for Dr. Gardner Patient seen and examined at bedside. No acute events overnight. Denies chest pain, SOB, nausea, vomiting, dizziness. CCU Objective - Vital Signs / Intake & Output Vital Signs (Last 4 hours): Vital Signs Temp Pulse Pulse Resp BP BP Pulse Ox 12/25/18 12:20 111 H 20 110/69 98 12/25/18 12:04 109 H 21 110/70 97 12/25/18 12:00 109 H 14 107/66 96 12/25/18 11:50 108 H 23 103/72 99 12/25/18 11:49 107 H 21 103/72 90 L 12/25/18 11:34 111 H 26 H 97/67 L 91 L 12/25/18 11:25 100 H 11 L 105/65 91 L 12/25/18 11:19 104 H 23 105/65 12/25/18 11:10 104 H 11 L 108/67 91 L 12/25/18 11:04 96 H 13 108/67 68 L 12/25/18 11:00 101 H 24 76 L 12/25/18 10:55 95 H 13 103/60 91 L 12/25/18 10:49 104 H 15 103/60 12/25/18 10:40 93 H 13 104/63 91 L 12/25/18 10:34 107 H 19 104/63 64 L 12/25/18 10:25 90 18 98/57 L 91 L 12/25/18 10:20 186 H 19 98/57 L 12/25/18 10:10 97.6 F 172 H 162 H 18 105/51 L 105/51 L 91 L 12/25/18 10:04 95 H 20 88/55 L 12/25/18 10:00 100 H 20 97/58 L 92 L 12/25/18 09:49 123 H 24 97/58 L 12/25/18 09:40 97.6 F 154 H 19 102/52 L 12/25/18 09:34 102/52 L 12/25/18 09:19 162 H 19 99/56 L 62 L 12/25/18 09:04 85 17 94/53 L 84 L 12/25/18 09:00 155 H 19 91/56 L 92 L 12/25/18 08:55 160 H 19 91/56 L Intake and Output (Last 8hrs): Intake & Output 12/24/18 12/25/18 12/25/18 22:59 06:59 14:59 Intake Total 396 87.4 231.2 Output Total 14 0 Balance 382 87.4 231.2 Weight 154 lb Intake: IV 250 0 162 Intake, IV Amount 146 87.4 69.2 Rt IJ Medial port 96 87.4 69.2 Rt IJ TLC Proximal port 50 Oral 0 0 0 Output: Urine 14 0 Urethral ([place]rell[place]) 14 0 - Physical Exam Head: Positive for: Atraumatic, Normocephalic Pupils: Positive for: PERRL Conjunctiva: Positive for: Normal Mouth: Positive for: Moist Mucous Membranes Neck: Positive for: Normal Range of Motion Respiratory/Chest: Positive for: Clear to Auscultation, Good Air Exchange. Negative for: Respiratory Distress, Accessory Muscle Use Cardiovascular: Positive for: Regular Rate and Rhythm, Normal S1, S2 Abdomen: Positive for: Distention, Normal Bowel Sounds. Negative for: Tenderness, Peritoneal Signs Upper Extremity: Positive for: Normal Inspection. Negative for: Cyanosis Lower Extremity: Positive for: Normal Inspection. Negative for: Edema Psychiatric: Positive for: Alert, Oriented x 3 - Medications Active Medications: Active Medications Generic Name Dose Route Start Last Admin Trade Name Freq PRN Reason Stop Dose Admin Dextrose 0 ml 12/21/18 12:38 12/25/18 06:42 Dextrose 50% Inj IV 50 ml STAT PRN Administration Hypoglycemia Protocol Protocol Dextrose 0 gm 12/21/18 12:38 Glutose 15 PO ONCE PRN Hypoglycemia Protocol Protocol Glucagon 0 mg 12/21/18 12:38 Glucagen Diagnostic Kit IM STAT PRN Hypoglycemia Protocol Protocol Home Med 1 tab 12/23/18 10:00 12/25/18 10:47 Patient's Own Medication PO 1 tab DAILY JOSÉ MIGUEL Administration Hydrocortisone Sodium Succinate 100 mg 12/22/18 17:00 12/25/18 10:47 Solu-Cortef IV 100 mg Q8H JOSÉ MIGUEL Administration Cefepime HCl 1 gm in 50 mls @ 100 mls/hr 12/21/18 17:45 12/24/18 17:04 Maxipime Iv 1 Gm Premix IVPB 100 mls/hr Q24H JOSÉ MIGUEL Administration Protocol Vasopressin 40 units/ Dextrose 42 mls @ 0.63 mls/hr 12/22/18 05:15 12/25/18 05:21 IV Not Given .Q24H JOSÉ MIGUEL Protocol 0.01 UNITS/MIN Dopamine HCl/Dextrose 400 mg in 250 mls @ 5.239 mls/hr 12/25/18 11:01 11:44 Dopamine 400mg/250ml D5w IV 6.83 mcg/kg/min .Q24H PRN 17.9 mls/hr TITRATE PER MD ORDER Titration Protocol 2 MCG/KG/MIN Gentamicin Sulfate 160 mg/ 104 mls @ 100 mls/hr 12/25/18 14:00 Sodium Chloride IVPB 12/25/18 15:02 ONCE ONE Protocol Levothyroxine Sodium 50 mcg 12/21/18 08:00 12/25/18 06:38 Synthroid PO 50 mcg DAILY@0630 JOSÉ MIGUEL Administration Pantoprazole Sodium 40 mg 12/22/18 09:00 12/25/18 10:46 Protonix Inj IVP 40 mg Q12H JOSÉ MIGUEL Administration Rosuvastatin Calcium 5 mg 12/21/18 22:00 12/24/18 21:35 Crestor PO 5 mg HS JOSÉ MIGUEL Administration Sodium Bicarbonate 1,300 mg 12/22/18 12:00 12/22/18 19:04 Sodium Bicarbonate Tab PO 1,300 mg Q6 JOSÉ MIGUEL Administration Sodium Bicarbonate 50 meq 12/22/18 08:45 12/22/18 20:46 Sodium Bicarbonate 8.4% (50 Meq) Vial IVP 50 meq Q4H JOSÉ MIGUEL Administration Tamsulosin HCl 0.4 mg 12/21/18 10:00 12/25/18 10:47 Flomax PO 0.4 mg DAILY JOSÉ MIGUEL Administration - Patient Studies Lab Studies: Microbiology Studies 12/21/18 05:53 Blood Culture - Preliminary Blood-Venous NO GROWTH AFTER 4 DAYS 12/21/18 05:53 Blood Culture - Preliminary Blood-Venous NO GROWTH AFTER 4 DAYS Lab Studies 12/25/18 12/25/18 12/25/18 Range/Units 08:55 07:10 06:30 WBC (4.8-10.8) K/uL RBC (4.40-5.90) Mil/uL Hgb (12.0-18.0) g/dL Hct (35.0-51.0) % MCV (80.0-94.0) fL MCH (27.0-31.0) pg MCHC (33.0-37.0) g/dL RDW (11.5-14.5) % Plt Count (130-400) K/uL MPV (7.2-11.7) fL Neut % (Auto) (50.0-75.0) % Lymph % (Auto) (20.0-40.0) % [place] % (Auto) (0.0-10.0) % Eos % (Auto) (0.0-4.0) % Baso % (Auto) (0.0-2.0) % Neut # (Auto) (1.8-7.0) K/uL Lymph # (Auto) (1.0-4.3) K/uL [place] # (Auto) (0.0-0.8) K/uL Eos # (Auto) (0.0-0.7) K/uL Baso # (Auto) (0.0-0.2) K/uL Neutrophils % (Manual) (50-75) % Band Neutrophils % (0-2) % Lymphocytes % (Manual) (20-40) % Monocytes % (Manual) (0-10) % Nucleated RBC % (0-0) % Platelet Estimate (NORMAL) Poikilocytosis (manual Anisocytosis (manual) Ovalocytes Chana Cells Puncture Site [place] pCO2 17 L* (35-45) mm/Hg pO2 99 (80-100) mm/Hg HCO3 14.9 L (21-28) mmol/L ABG pH 7.37 (7.35-7.45) ABG Total CO2 10.3 L (22-28) mmol/L ABG O2 Saturation 99.8 H (95-98) % ABG Base Excess -12.8 L (-2.0-3.0) mmol/L Gregory Test Na ABG Potassium 4.6 (3.6-5.2) mmol/L A-a O2 Difference 136.0 mm/Hg Respiratory Index 1.4 Glucose 95 (75-110) mg/dl Lactate 11.5 H* (0.7-2.1) mmol/L Liter Flow 4.0 FiO2 36.0 % Crit Value Called To Safia alexis Crit Value Called By [facility] Crit Value Read Back Y Blood Gas Notified Time 900 Sodium 139.0 (132-148) mmol/L Potassium (3.6-5.2) mmol/L Chloride 102.0 (98-107) mmol/L Carbon Dioxide (22-30) mmol/L Anion Gap (10-20) BUN (9-20) mg/dL Creatinine (0.8-1.5) mg/dL Est GFR ( Amer) Est GFR (Non-Af Amer) POC Glucose (mg/dL) 100 56 L (65-110) mg/dL Random Glucose (75-110) mg/dL Calcium (8.6-10.4) mg/dl Phosphorus (2.5-4.5) mg/dL Magnesium (1.6-2.3) mg/dL Total Bilirubin (0.2-1.3) mg/dL AST (17-59) U/L ALT (21-72) U/L Alkaline Phosphatase (38-126) U/L Ammonia (9-33) umol/L Total Protein (6.3-8.3) g/dL Albumin (3.5-5.0) g/dL Globulin (2.2-3.9) gm/dL Albumin/Globulin Ratio (1.0-2.1) Arterial Blood Potassium 4.6 (3.6-5.2) mmol/L 12/25/18 12/25/18 12/25/18 Range/Units 06:27 06:13 06:13 WBC 9.1 (4.8-10.8) K/uL RBC 2.76 L (4.40-5.90) Mil/uL Hgb 9.0 L (12.0-18.0) g/dL Hct 27.2 L (35.0-51.0) % MCV 98.7 H (80.0-94.0) fL MCH 32.6 H (27.0-31.0) pg MCHC 33.0 (33.0-37.0) g/dL RDW 20.8 H (11.5-14.5) % Plt Count 44 L (130-400) K/uL MPV 10.4 (7.2-11.7) fL Neut % (Auto) 91.0 H (50.0-75.0) % Lymph % (Auto) 8.0 L (20.0-40.0) % [place] % (Auto) 1.0 (0.0-10.0) % Eos % (Auto) 0.0 (0.0-4.0) % Baso % (Auto) 0.0 (0.0-2.0) % Neut # (Auto) 8.3 H (1.8-7.0) K/uL Lymph # (Auto) 0.7 L (1.0-4.3) K/uL [place] # (Auto) 0.1 (0.0-0.8) K/uL Eos # (Auto) 0.0 (0.0-0.7) K/uL Baso # (Auto) 0.0 (0.0-0.2) K/uL Neutrophils % (Manual) 84 H (50-75) % Band Neutrophils % 9 H (0-2) % Lymphocytes % (Manual) 4 L (20-40) % Monocytes % (Manual) 3 (0-10) % Nucleated RBC % 1 H (0-0) % Platelet Estimate Decreased L (NORMAL) Poikilocytosis (manual Slight Anisocytosis (manual) Moderate Ovalocytes Slight Chana Cells Slight Puncture Site pCO2 (35-45) mm/Hg pO2 (80-100) mm/Hg HCO3 (21-28) mmol/L ABG pH (7.35-7.45) ABG Total CO2 (22-28) mmol/L ABG O2 Saturation (95-98) % ABG Base Excess (-2.0-3.0) mmol/L Gregory Test ABG Potassium (3.6-5.2) mmol/L A-a O2 Difference mm/Hg Respiratory Index Glucose (75-110) mg/dl Lactate (0.7-2.1) mmol/L Liter Flow FiO2 % Crit Value Called To Crit Value Called By Crit Value Read Back Blood Gas Notified Time Sodium 138 (132-148) mmol/L Potassium 4.9 (3.6-5.2) mmol/L Chloride 99 (98-107) mmol/L Carbon Dioxide 13 L (22-30) mmol/L Anion Gap 30 H (10-20) BUN 52 H (9-20) mg/dL Creatinine 4.1 H (0.8-1.5) mg/dL Est GFR ( Amer) 17 Est GFR (Non-Af Amer) 14 POC Glucose (mg/dL) 64 L (65-110) mg/dL Random Glucose 57 L D (75-110) mg/dL Calcium 7.0 L (8.6-10.4) mg/dl Phosphorus 4.1 (2.5-4.5) mg/dL Magnesium 2.3 (1.6-2.3) mg/dL Total Bilirubin 8.3 H (0.2-1.3) mg/dL AST 1144 H (17-59) U/L ALT 205 H (21-72) U/L Alkaline Phosphatase 572 H (38-126) U/L Ammonia (9-33) umol/L Total Protein 5.8 L (6.3-8.3) g/dL Albumin 3.4 L (3.5-5.0) g/dL Globulin 2.4 (2.2-3.9) gm/dL Albumin/Globulin Ratio 1.4 (1.0-2.1) Arterial Blood Potassium (3.6-5.2) mmol/L 12/25/18 12/25/18 12/24/18 Range/Units 00:08 00:06 22:40 WBC (4.8-10.8) K/uL RBC (4.40-5.90) Mil/uL Hgb (12.0-18.0) g/dL Hct (35.0-51.0) % MCV (80.0-94.0) fL MCH (27.0-31.0) pg MCHC (33.0-37.0) g/dL RDW (11.5-14.5) % Plt Count (130-400) K/uL MPV (7.2-11.7) fL Neut % (Auto) (50.0-75.0) % Lymph % (Auto) (20.0-40.0) % [place] % (Auto) (0.0-10.0) % Eos % (Auto) (0.0-4.0) % Baso % (Auto) (0.0-2.0) % Neut # (Auto) (1.8-7.0) K/uL Lymph # (Auto) (1.0-4.3) K/uL [place] # (Auto) (0.0-0.8) K/uL Eos # (Auto) (0.0-0.7) K/uL Baso # (Auto) (0.0-0.2) K/uL Neutrophils % (Manual) (50-75) % Band Neutrophils % (0-2) % Lymphocytes % (Manual) (20-40) % Monocytes % (Manual) (0-10) % Nucleated RBC % (0-0) % Platelet Estimate (NORMAL) Poikilocytosis (manual Anisocytosis (manual) Ovalocytes Keira Cells Puncture Site pCO2 (35-45) mm/Hg pO2 (80-100) mm/Hg HCO3 (21-28) mmol/L ABG pH (7.35-7.45) ABG Total CO2 (22-28) mmol/L ABG O2 Saturation (95-98) % ABG Base Excess (-2.0-3.0) mmol/L Gregory Test ABG Potassium (3.6-5.2) mmol/L A-a O2 Difference mm/Hg Respiratory Index Glucose (75-110) mg/dl Lactate (0.7-2.1) mmol/L Liter Flow FiO2 % Crit Value Called To Crit Value Called By Crit Value Read Back Blood Gas Notified Time Sodium (132-148) mmol/L Potassium (3.6-5.2) mmol/L Chloride (98-107) mmol/L Carbon Dioxide (22-30) mmol/L Anion Gap (10-20) BUN (9-20) mg/dL Creatinine (0.8-1.5) mg/dL Est GFR ( Amer) Est GFR (Non-Af Amer) POC Glucose (mg/dL) 75 25 L* (65-110) mg/dL Random Glucose (75-110) mg/dL Calcium (8.6-10.4) mg/dl Phosphorus (2.5-4.5) mg/dL Magnesium (1.6-2.3) mg/dL Total Bilirubin (0.2-1.3) mg/dL AST (17-59) U/L ALT (21-72) U/L Alkaline Phosphatase (38-126) U/L Ammonia < 9 L D (9-33) umol/L Total Protein (6.3-8.3) g/dL Albumin (3.5-5.0) g/dL Globulin (2.2-3.9) gm/dL Albumin/Globulin Ratio (1.0-2.1) Arterial Blood Potassium (3.6-5.2) mmol/L 12/24/18 12/24/18 12/24/18 Range/Units 22:28 18:49 18:46 WBC (4.8-10.8) K/uL RBC (4.40-5.90) Mil/uL Hgb (12.0-18.0) g/dL Hct (35.0-51.0) % MCV (80.0-94.0) fL MCH (27.0-31.0) pg MCHC (33.0-37.0) g/dL RDW (11.5-14.5) % Plt Count (130-400) K/uL MPV (7.2-11.7) fL Neut % (Auto) (50.0-75.0) % Lymph % (Auto) (20.0-40.0) % [place] % (Auto) (0.0-10.0) % Eos % (Auto) (0.0-4.0) % Baso % (Auto) (0.0-2.0) % Neut # (Auto) (1.8-7.0) K/uL Lymph # (Auto) (1.0-4.3) K/uL [place] # (Auto) (0.0-0.8) K/uL Eos # (Auto) (0.0-0.7) K/uL Baso # (Auto) (0.0-0.2) K/uL Neutrophils % (Manual) (50-75) % Band Neutrophils % (0-2) % Lymphocytes % (Manual) (20-40) % Monocytes % (Manual) (0-10) % Nucleated RBC % (0-0) % Platelet Estimate (NORMAL) Poikilocytosis (manual Anisocytosis (manual) Ovalocytes Keira Cells Puncture Site pCO2 (35-45) mm/Hg pO2 (80-100) mm/Hg HCO3 (21-28) mmol/L ABG pH (7.35-7.45) ABG Total CO2 (22-28) mmol/L ABG O2 Saturation (95-98) % ABG Base Excess (-2.0-3.0) mmol/L Gregory Test ABG Potassium (3.6-5.2) mmol/L A-a O2 Difference mm/Hg Respiratory Index Glucose (75-110) mg/dl Lactate (0.7-2.1) mmol/L Liter Flow FiO2 % Crit Value Called To Crit Value Called By Crit Value Read Back Blood Gas Notified Time Sodium 137 (132-148) mmol/L Potassium 4.7 (3.6-5.2) mmol/L Chloride 98 (98-107) mmol/L Carbon Dioxide 14 L (22-30) mmol/L Anion Gap 29 H (10-20) BUN 49 H (9-20) mg/dL Creatinine 3.8 H (0.8-1.5) mg/dL Est GFR ( Amer) 19 Est GFR (Non-Af Amer) 16 POC Glucose (mg/dL) 410 H* 36 L* (65-110) mg/dL Random Glucose 92 D (75-110) mg/dL Calcium 6.9 L (8.6-10.4) mg/dl Phosphorus (2.5-4.5) mg/dL Magnesium (1.6-2.3) mg/dL Total Bilirubin 8.0 H (0.2-1.3) mg/dL AST 1063 H (17-59) U/L ALT 209 H (21-72) U/L Alkaline Phosphatase 532 H (38-126) U/L Ammonia (9-33) umol/L Total Protein 5.8 L (6.3-8.3) g/dL Albumin 3.3 L (3.5-5.0) g/dL Globulin 2.5 (2.2-3.9) gm/dL Albumin/Globulin Ratio 1.3 (1.0-2.1) Arterial Blood Potassium (3.6-5.2) mmol/L 12/24/18 12/24/18 12/24/18 Range/Units 18:24 18:22 11:19 WBC (4.8-10.8) K/uL RBC (4.40-5.90) Mil/uL Hgb (12.0-18.0) g/dL Hct (35.0-51.0) % MCV (80.0-94.0) fL MCH (27.0-31.0) pg MCHC (33.0-37.0) g/dL RDW (11.5-14.5) % Plt Count (130-400) K/uL MPV (7.2-11.7) fL Neut % (Auto) (50.0-75.0) % Lymph % (Auto) (20.0-40.0) % [place] % (Auto) (0.0-10.0) % Eos % (Auto) (0.0-4.0) % Baso % (Auto) (0.0-2.0) % Neut # (Auto) (1.8-7.0) K/uL Lymph # (Auto) (1.0-4.3) K/uL [place] # (Auto) (0.0-0.8) K/uL Eos # (Auto) (0.0-0.7) K/uL Baso # (Auto) (0.0-0.2) K/uL Neutrophils % (Manual) (50-75) % Band Neutrophils % (0-2) % Lymphocytes % (Manual) (20-40) % Monocytes % (Manual) (0-10) % Nucleated RBC % (0-0) % Platelet Estimate (NORMAL) Poikilocytosis (manual Anisocytosis (manual) Ovalocytes Keira Cells Puncture Site pCO2 (35-45) mm/Hg pO2 (80-100) mm/Hg HCO3 (21-28) mmol/L ABG pH (7.35-7.45) ABG Total CO2 (22-28) mmol/L ABG O2 Saturation (95-98) % ABG Base Excess (-2.0-3.0) mmol/L Gregory Test ABG Potassium (3.6-5.2) mmol/L A-a O2 Difference mm/Hg Respiratory Index Glucose (75-110) mg/dl Lactate (0.7-2.1) mmol/L Liter Flow FiO2 % Crit Value Called To Crit Value Called By Crit Value Read Back Blood Gas Notified Time Sodium (132-148) mmol/L Potassium (3.6-5.2) mmol/L Chloride (98-107) mmol/L Carbon Dioxide (22-30) mmol/L Anion Gap (10-20) BUN (9-20) mg/dL Creatinine (0.8-1.5) mg/dL Est GFR ( Amer) Est GFR (Non-Af Amer) POC Glucose (mg/dL) 36 L* 37 L* 77 (65-110) mg/dL Random Glucose (75-110) mg/dL Calcium (8.6-10.4) mg/dl Phosphorus (2.5-4.5) mg/dL Magnesium (1.6-2.3) mg/dL Total Bilirubin (0.2-1.3) mg/dL AST (17-59) U/L ALT (21-72) U/L Alkaline Phosphatase (38-126) U/L Ammonia (9-33) umol/L Total Protein (6.3-8.3) g/dL Albumin (3.5-5.0) g/dL Globulin (2.2-3.9) gm/dL Albumin/Globulin Ratio (1.0-2.1) Arterial Blood Potassium (3.6-5.2) mmol/L 12/24/18 12/23/18 12/23/18 Range/Units 06:06 23:42 17:33 WBC (4.8-10.8) K/uL RBC (4.40-5.90) Mil/uL Hgb (12.0-18.0) g/dL Hct (35.0-51.0) % MCV (80.0-94.0) fL MCH (27.0-31.0) pg MCHC (33.0-37.0) g/dL RDW (11.5-14.5) % Plt Count (130-400) K/uL MPV (7.2-11.7) fL Neut % (Auto) (50.0-75.0) % Lymph % (Auto) (20.0-40.0) % [place] % (Auto) (0.0-10.0) % Eos % (Auto) (0.0-4.0) % Baso % (Auto) (0.0-2.0) % Neut # (Auto) (1.8-7.0) K/uL Lymph # (Auto) (1.0-4.3) K/uL [place] # (Auto) (0.0-0.8) K/uL Eos # (Auto) (0.0-0.7) K/uL Baso # (Auto) (0.0-0.2) K/uL Neutrophils % (Manual) (50-75) % Band Neutrophils % (0-2) % Lymphocytes % (Manual) (20-40) % Monocytes % (Manual) (0-10) % Nucleated RBC % (0-0) % Platelet Estimate (NORMAL) Poikilocytosis (manual Anisocytosis (manual) Ovalocytes Chana Cells Puncture Site pCO2 (35-45) mm/Hg pO2 (80-100) mm/Hg HCO3 (21-28) mmol/L ABG pH (7.35-7.45) ABG Total CO2 (22-28) mmol/L ABG O2 Saturation (95-98) % ABG Base Excess (-2.0-3.0) mmol/L Gregory Test ABG Potassium (3.6-5.2) mmol/L A-a O2 Difference mm/Hg Respiratory Index Glucose (75-110) mg/dl Lactate (0.7-2.1) mmol/L Liter Flow FiO2 % Crit Value Called To Crit Value Called By Crit Value Read Back Blood Gas Notified Time Sodium (132-148) mmol/L Potassium (3.6-5.2) mmol/L Chloride (98-107) mmol/L Carbon Dioxide (22-30) mmol/L Anion Gap (10-20) BUN (9-20) mg/dL Creatinine (0.8-1.5) mg/dL Est GFR ( Amer) Est GFR (Non-Af Amer) POC Glucose (mg/dL) 81 71 106 (65-110) mg/dL Random Glucose (75-110) mg/dL Calcium (8.6-10.4) mg/dl Phosphorus (2.5-4.5) mg/dL Magnesium (1.6-2.3) mg/dL Total Bilirubin (0.2-1.3) mg/dL AST (17-59) U/L ALT (21-72) U/L Alkaline Phosphatase (38-126) U/L Ammonia (9-33) umol/L Total Protein (6.3-8.3) g/dL Albumin (3.5-5.0) g/dL Globulin (2.2-3.9) gm/dL Albumin/Globulin Ratio (1.0-2.1) Arterial Blood Potassium (3.6-5.2) mmol/L 12/23/18 12/23/18 12/23/18 Range/Units 17:31 11:36 11:33 WBC (4.8-10.8) K/uL RBC (4.40-5.90) Mil/uL Hgb (12.0-18.0) g/dL Hct (35.0-51.0) % MCV (80.0-94.0) fL MCH (27.0-31.0) pg MCHC (33.0-37.0) g/dL RDW (11.5-14.5) % Plt Count (130-400) K/uL MPV (7.2-11.7) fL Neut % (Auto) (50.0-75.0) % Lymph % (Auto) (20.0-40.0) % [place] % (Auto) (0.0-10.0) % Eos % (Auto) (0.0-4.0) % Baso % (Auto) (0.0-2.0) % Neut # (Auto) (1.8-7.0) K/uL Lymph # (Auto) (1.0-4.3) K/uL [place] # (Auto) (0.0-0.8) K/uL Eos # (Auto) (0.0-0.7) K/uL Baso # (Auto) (0.0-0.2) K/uL Neutrophils % (Manual) (50-75) % Band Neutrophils % (0-2) % Lymphocytes % (Manual) (20-40) % Monocytes % (Manual) (0-10) % Nucleated RBC % (0-0) % Platelet Estimate (NORMAL) Poikilocytosis (manual Anisocytosis (manual) Ovalocytes Keira Cells Puncture Site pCO2 (35-45) mm/Hg pO2 (80-100) mm/Hg HCO3 (21-28) mmol/L ABG pH (7.35-7.45) ABG Total CO2 (22-28) mmol/L ABG O2 Saturation (95-98) % ABG Base Excess (-2.0-3.0) mmol/L Gregory Test ABG Potassium (3.6-5.2) mmol/L A-a O2 Difference mm/Hg Respiratory Index Glucose (75-110) mg/dl Lactate (0.7-2.1) mmol/L Liter Flow FiO2 % Crit Value Called To Crit Value Called By Crit Value Read Back Blood Gas Notified Time Sodium (132-148) mmol/L Potassium (3.6-5.2) mmol/L Chloride (98-107) mmol/L Carbon Dioxide (22-30) mmol/L Anion Gap (10-20) BUN (9-20) mg/dL Creatinine (0.8-1.5) mg/dL Est GFR ( Amer) Est GFR (Non-Af Amer) POC Glucose (mg/dL) 67 107 < 20 L* (65-110) mg/dL Random Glucose (75-110) mg/dL Calcium (8.6-10.4) mg/dl Phosphorus (2.5-4.5) mg/dL Magnesium (1.6-2.3) mg/dL Total Bilirubin (0.2-1.3) mg/dL AST (17-59) U/L ALT (21-72) U/L Alkaline Phosphatase (38-126) U/L Ammonia (9-33) umol/L Total Protein (6.3-8.3) g/dL Albumin (3.5-5.0) g/dL Globulin (2.2-3.9) gm/dL Albumin/Globulin Ratio (1.0-2.1) Arterial Blood Potassium (3.6-5.2) mmol/L 12/23/18 12/23/18 12/22/18 Range/Units 05:25 02:43 23:39 WBC (4.8-10.8) K/uL RBC (4.40-5.90) Mil/uL Hgb (12.0-18.0) g/dL Hct (35.0-51.0) % MCV (80.0-94.0) fL MCH (27.0-31.0) pg MCHC (33.0-37.0) g/dL RDW (11.5-14.5) % Plt Count (130-400) K/uL MPV (7.2-11.7) fL Neut % (Auto) (50.0-75.0) % Lymph % (Auto) (20.0-40.0) % [place] % (Auto) (0.0-10.0) % Eos % (Auto) (0.0-4.0) % Baso % (Auto) (0.0-2.0) % Neut # (Auto) (1.8-7.0) K/uL Lymph # (Auto) (1.0-4.3) K/uL [place] # (Auto) (0.0-0.8) K/uL Eos # (Auto) (0.0-0.7) K/uL Baso # (Auto) (0.0-0.2) K/uL Neutrophils % (Manual) (50-75) % Band Neutrophils % (0-2) % Lymphocytes % (Manual) (20-40) % Monocytes % (Manual) (0-10) % Nucleated RBC % (0-0) % Platelet Estimate (NORMAL) Poikilocytosis (manual Anisocytosis (manual) Ovalocytes Chana Cells Puncture Site pCO2 (35-45) mm/Hg pO2 (80-100) mm/Hg HCO3 (21-28) mmol/L ABG pH (7.35-7.45) ABG Total CO2 (22-28) mmol/L ABG O2 Saturation (95-98) % ABG Base Excess (-2.0-3.0) mmol/L Gregory Test ABG Potassium (3.6-5.2) mmol/L A-a O2 Difference mm/Hg Respiratory Index Glucose (75-110) mg/dl Lactate (0.7-2.1) mmol/L Liter Flow FiO2 % Crit Value Called To Crit Value Called By Crit Value Read Back Blood Gas Notified Time Sodium (132-148) mmol/L Potassium (3.6-5.2) mmol/L Chloride (98-107) mmol/L Carbon Dioxide (22-30) mmol/L Anion Gap (10-20) BUN (9-20) mg/dL Creatinine (0.8-1.5) mg/dL Est GFR ( Amer) Est GFR (Non-Af Amer) POC Glucose (mg/dL) 123 H 131 H 136 H (65-110) mg/dL Random Glucose (75-110) mg/dL Calcium (8.6-10.4) mg/dl Phosphorus (2.5-4.5) mg/dL Magnesium (1.6-2.3) mg/dL Total Bilirubin (0.2-1.3) mg/dL AST (17-59) U/L ALT (21-72) U/L Alkaline Phosphatase (38-126) U/L Ammonia (9-33) umol/L Total Protein (6.3-8.3) g/dL Albumin (3.5-5.0) g/dL Globulin (2.2-3.9) gm/dL Albumin/Globulin Ratio (1.0-2.1) Arterial Blood Potassium (3.6-5.2) mmol/L 12/22/18 12/22/18 12/22/18 Range/Units 23:37 17:56 04:58 WBC (4.8-10.8) K/uL RBC (4.40-5.90) Mil/uL Hgb (12.0-18.0) g/dL Hct (35.0-51.0) % MCV (80.0-94.0) fL MCH (27.0-31.0) pg MCHC (33.0-37.0) g/dL RDW (11.5-14.5) % Plt Count (130-400) K/uL MPV (7.2-11.7) fL Neut % (Auto) (50.0-75.0) % Lymph % (Auto) (20.0-40.0) % [place] % (Auto) (0.0-10.0) % Eos % (Auto) (0.0-4.0) % Baso % (Auto) (0.0-2.0) % Neut # (Auto) (1.8-7.0) K/uL Lymph # (Auto) (1.0-4.3) K/uL [place] # (Auto) (0.0-0.8) K/uL Eos # (Auto) (0.0-0.7) K/uL Baso # (Auto) (0.0-0.2) K/uL Neutrophils % (Manual) (50-75) % Band Neutrophils % (0-2) % Lymphocytes % (Manual) (20-40) % Monocytes % (Manual) (0-10) % Nucleated RBC % (0-0) % Platelet Estimate (NORMAL) Poikilocytosis (manual Anisocytosis (manual) Ovalocytes Keira Cells Puncture Site pCO2 (35-45) mm/Hg pO2 (80-100) mm/Hg HCO3 (21-28) mmol/L ABG pH (7.35-7.45) ABG Total CO2 (22-28) mmol/L ABG O2 Saturation (95-98) % ABG Base Excess (-2.0-3.0) mmol/L Gregory Test ABG Potassium (3.6-5.2) mmol/L A-a O2 Difference mm/Hg Respiratory Index Glucose (75-110) mg/dl Lactate (0.7-2.1) mmol/L Liter Flow FiO2 % Crit Value Called To Crit Value Called By Crit Value Read Back Blood Gas Notified Time Sodium (132-148) mmol/L Potassium (3.6-5.2) mmol/L Chloride (98-107) mmol/L Carbon Dioxide (22-30) mmol/L Anion Gap (10-20) BUN (9-20) mg/dL Creatinine (0.8-1.5) mg/dL Est GFR ( Amer) Est GFR (Non-Af Amer) POC Glucose (mg/dL) 35 L* 98 122 H (65-110) mg/dL Random Glucose (75-110) mg/dL Calcium (8.6-10.4) mg/dl Phosphorus (2.5-4.5) mg/dL Magnesium (1.6-2.3) mg/dL Total Bilirubin (0.2-1.3) mg/dL AST (17-59) U/L ALT (21-72) U/L Alkaline Phosphatase (38-126) U/L Ammonia (9-33) umol/L Total Protein (6.3-8.3) g/dL Albumin (3.5-5.0) g/dL Globulin (2.2-3.9) gm/dL Albumin/Globulin Ratio (1.0-2.1) Arterial Blood Potassium (3.6-5.2) mmol/L 04/12/19 04/12/19 04/12/19 Range/Units 23:45 22:01 20:37 WBC (4.8-10.8) K/uL RBC (4.40-5.90) Mil/uL Hgb (12.0-18.0) g/dL Hct (35.0-51.0) % MCV (80.0-94.0) fL MCH (27.0-31.0) pg MCHC (33.0-37.0) g/dL RDW (11.5-14.5) % Plt Count (130-400) K/uL MPV (7.2-11.7) fL Neut % (Auto) (50.0-75.0) % Lymph % (Auto) (20.0-40.0) % [place] % (Auto) (0.0-10.0) % Eos % (Auto) (0.0-4.0) % Baso % (Auto) (0.0-2.0) % Neut # (Auto) (1.8-7.0) K/uL Lymph # (Auto) (1.0-4.3) K/uL [place] # (Auto) (0.0-0.8) K/uL Eos # (Auto) (0.0-0.7) K/uL Baso # (Auto) (0.0-0.2) K/uL Neutrophils % (Manual) (50-75) % Band Neutrophils % (0-2) % Lymphocytes % (Manual) (20-40) % Monocytes % (Manual) (0-10) % Nucleated RBC % (0-0) % Platelet Estimate (NORMAL) Poikilocytosis (manual Anisocytosis (manual) Ovalocytes Chana Cells Puncture Site pCO2 (35-45) mm/Hg pO2 (80-100) mm/Hg HCO3 (21-28) mmol/L ABG pH (7.35-7.45) ABG Total CO2 (22-28) mmol/L ABG O2 Saturation (95-98) % ABG Base Excess (-2.0-3.0) mmol/L Gregory Test ABG Potassium (3.6-5.2) mmol/L A-a O2 Difference mm/Hg Respiratory Index Glucose (75-110) mg/dl Lactate (0.7-2.1) mmol/L Liter Flow FiO2 % Crit Value Called To Crit Value Called By Crit Value Read Back Blood Gas Notified Time Sodium (132-148) mmol/L Potassium (3.6-5.2) mmol/L Chloride (98-107) mmol/L Carbon Dioxide (22-30) mmol/L Anion Gap (10-20) BUN (9-20) mg/dL Creatinine (0.8-1.5) mg/dL Est GFR ( Amer) Est GFR (Non-Af Amer) POC Glucose (mg/dL) 379 H 101 84 (65-110) mg/dL Random Glucose (75-110) mg/dL Calcium (8.6-10.4) mg/dl Phosphorus (2.5-4.5) mg/dL Magnesium (1.6-2.3) mg/dL Total Bilirubin (0.2-1.3) mg/dL AST (17-59) U/L ALT (21-72) U/L Alkaline Phosphatase (38-126) U/L Ammonia (9-33) umol/L Total Protein (6.3-8.3) g/dL Albumin (3.5-5.0) g/dL Globulin (2.2-3.9) gm/dL Albumin/Globulin Ratio (1.0-2.1) Arterial Blood Potassium (3.6-5.2) mmol/L 12/21/18 12/21/18 12/21/18 Range/Units 17:38 15:41 11:36 WBC (4.8-10.8) K/uL RBC (4.40-5.90) Mil/uL Hgb (12.0-18.0) g/dL Hct (35.0-51.0) % MCV (80.0-94.0) fL MCH (27.0-31.0) pg MCHC (33.0-37.0) g/dL RDW (11.5-14.5) % Plt Count (130-400) K/uL MPV (7.2-11.7) fL Neut % (Auto) (50.0-75.0) % Lymph % (Auto) (20.0-40.0) % [place] % (Auto) (0.0-10.0) % Eos % (Auto) (0.0-4.0) % Baso % (Auto) (0.0-2.0) % Neut # (Auto) (1.8-7.0) K/uL Lymph # (Auto) (1.0-4.3) K/uL [place] # (Auto) (0.0-0.8) K/uL Eos # (Auto) (0.0-0.7) K/uL Baso # (Auto) (0.0-0.2) K/uL Neutrophils % (Manual) (50-75) % Band Neutrophils % (0-2) % Lymphocytes % (Manual) (20-40) % Monocytes % (Manual) (0-10) % Nucleated RBC % (0-0) % Platelet Estimate (NORMAL) Poikilocytosis (manual Anisocytosis (manual) Ovalocytes Chana Cells Puncture Site pCO2 (35-45) mm/Hg pO2 (80-100) mm/Hg HCO3 (21-28) mmol/L ABG pH (7.35-7.45) ABG Total CO2 (22-28) mmol/L ABG O2 Saturation (95-98) % ABG Base Excess (-2.0-3.0) mmol/L Gregory Test ABG Potassium (3.6-5.2) mmol/L A-a O2 Difference mm/Hg Respiratory Index Glucose (75-110) mg/dl Lactate (0.7-2.1) mmol/L Liter Flow FiO2 % Crit Value Called To Crit Value Called By Crit Value Read Back Blood Gas Notified Time Sodium (132-148) mmol/L Potassium (3.6-5.2) mmol/L Chloride (98-107) mmol/L Carbon Dioxide (22-30) mmol/L Anion Gap (10-20) BUN (9-20) mg/dL Creatinine (0.8-1.5) mg/dL Est GFR ( Amer) Est GFR (Non-Af Amer) POC Glucose (mg/dL) 126 H 121 H 130 H (65-110) mg/dL Random Glucose (75-110) mg/dL Calcium (8.6-10.4) mg/dl Phosphorus (2.5-4.5) mg/dL Magnesium (1.6-2.3) mg/dL Total Bilirubin (0.2-1.3) mg/dL AST (17-59) U/L ALT (21-72) U/L Alkaline Phosphatase (38-126) U/L Ammonia (9-33) umol/L Total Protein (6.3-8.3) g/dL Albumin (3.5-5.0) g/dL Globulin (2.2-3.9) gm/dL Albumin/Globulin Ratio (1.0-2.1) Arterial Blood Potassium (3.6-5.2) mmol/L 12/21/18 Range/Units 10:42 WBC (4.8-10.8) K/uL RBC (4.40-5.90) Mil/uL Hgb (12.0-18.0) g/dL Hct (35.0-51.0) % MCV (80.0-94.0) fL MCH (27.0-31.0) pg MCHC (33.0-37.0) g/dL RDW (11.5-14.5) % Plt Count (130-400) K/uL MPV (7.2-11.7) fL Neut % (Auto) (50.0-75.0) % Lymph % (Auto) (20.0-40.0) % [place] % (Auto) (0.0-10.0) % Eos % (Auto) (0.0-4.0) % Baso % (Auto) (0.0-2.0) % Neut # (Auto) (1.8-7.0) K/uL Lymph # (Auto) (1.0-4.3) K/uL [place] # (Auto) (0.0-0.8) K/uL Eos # (Auto) (0.0-0.7) K/uL Baso # (Auto) (0.0-0.2) K/uL Neutrophils % (Manual) (50-75) % Band Neutrophils % (0-2) % Lymphocytes % (Manual) (20-40) % Monocytes % (Manual) (0-10) % Nucleated RBC % (0-0) % Platelet Estimate (NORMAL) Poikilocytosis (manual Anisocytosis (manual) Ovalocytes Chana Cells Puncture Site pCO2 (35-45) mm/Hg pO2 (80-100) mm/Hg HCO3 (21-28) mmol/L ABG pH (7.35-7.45) ABG Total CO2 (22-28) mmol/L ABG O2 Saturation (95-98) % ABG Base Excess (-2.0-3.0) mmol/L Gregory Test ABG Potassium (3.6-5.2) mmol/L A-a O2 Difference mm/Hg Respiratory Index Glucose (75-110) mg/dl Lactate (0.7-2.1) mmol/L Liter Flow FiO2 % Crit Value Called To Crit Value Called By Crit Value Read Back Blood Gas Notified Time Sodium (132-148) mmol/L Potassium (3.6-5.2) mmol/L Chloride (98-107) mmol/L Carbon Dioxide (22-30) mmol/L Anion Gap (10-20) BUN (9-20) mg/dL Creatinine (0.8-1.5) mg/dL Est GFR ( Amer) Est GFR (Non-Af Amer) POC Glucose (mg/dL) 127 H (65-110) mg/dL Random Glucose (75-110) mg/dL Calcium (8.6-10.4) mg/dl Phosphorus (2.5-4.5) mg/dL Magnesium (1.6-2.3) mg/dL Total Bilirubin (0.2-1.3) mg/dL AST (17-59) U/L ALT (21-72) U/L Alkaline Phosphatase (38-126) U/L Ammonia (9-33) umol/L Total Protein (6.3-8.3) g/dL Albumin (3.5-5.0) g/dL Globulin (2.2-3.9) gm/dL Albumin/Globulin Ratio (1.0-2.1) Arterial Blood Potassium (3.6-5.2) mmol/L Laboratory Results - last 24 hr 12/21/18 12/21/18 12/21/18 10:42 11:36 15:41 WBC RBC Hgb Hct MCV MCH MCHC RDW Plt Count MPV Neut % (Auto) Lymph % (Auto) [place] % (Auto) Eos % (Auto) Baso % (Auto) Neut # (Auto) Lymph # (Auto) [place] # (Auto) Eos # (Auto) Baso # (Auto) Neutrophils % (Manual) Band Neutrophils % Lymphocytes % (Manual) Monocytes % (Manual) Nucleated RBC % Platelet Estimate Poikilocytosis (manual Anisocytosis (manual) Ovalocytes Chana Cells Puncture Site pCO2 pO2 HCO3 ABG pH ABG Total CO2 ABG O2 Saturation ABG Base Excess Gregory Test ABG Potassium A-a O2 Difference Respiratory Index Glucose Lactate Liter Flow FiO2 Crit Value Called To Crit Value Called By Crit Value Read Back Blood Gas Notified Time Sodium Potassium Chloride Carbon Dioxide Anion Gap BUN Creatinine Est GFR ( Amer) Est GFR (Non-Af Amer) POC Glucose (mg/dL) 127 H 130 H 121 H Random Glucose Calcium Phosphorus Magnesium Total Bilirubin AST ALT Alkaline Phosphatase Ammonia Total Protein Albumin Globulin Albumin/Globulin Ratio Arterial Blood Potassium 12/21/18 12/21/18 12/21/18 17:38 20:37 22:01 WBC RBC Hgb Hct MCV MCH MCHC RDW Plt Count MPV Neut % (Auto) Lymph % (Auto) [place] % (Auto) Eos % (Auto) Baso % (Auto) Neut # (Auto) Lymph # (Auto) [place] # (Auto) Eos # (Auto) Baso # (Auto) Neutrophils % (Manual) Band Neutrophils % Lymphocytes % (Manual) Monocytes % (Manual) Nucleated RBC % Platelet Estimate Poikilocytosis (manual Anisocytosis (manual) Ovalocytes Keira Cells Puncture Site pCO2 pO2 HCO3 ABG pH ABG Total CO2 ABG O2 Saturation ABG Base Excess Gregory Test ABG Potassium A-a O2 Difference Respiratory Index Glucose Lactate Liter Flow FiO2 Crit Value Called To Crit Value Called By Crit Value Read Back Blood Gas Notified Time Sodium Potassium Chloride Carbon Dioxide Anion Gap BUN Creatinine Est GFR ( Amer) Est GFR (Non-Af Amer) POC Glucose (mg/dL) 126 H 84 101 Random Glucose Calcium Phosphorus Magnesium Total Bilirubin AST ALT Alkaline Phosphatase Ammonia Total Protein Albumin Globulin Albumin/Globulin Ratio Arterial Blood Potassium 12/21/18 12/22/18 12/22/18 23:45 04:58 17:56 WBC RBC Hgb Hct MCV MCH MCHC RDW Plt Count MPV Neut % (Auto) Lymph % (Auto) [place] % (Auto) Eos % (Auto) Baso % (Auto) Neut # (Auto) Lymph # (Auto) [place] # (Auto) Eos # (Auto) Baso # (Auto) Neutrophils % (Manual) Band Neutrophils % Lymphocytes % (Manual) Monocytes % (Manual) Nucleated RBC % Platelet Estimate Poikilocytosis (manual Anisocytosis (manual) Ovalocytes Chana Cells Puncture Site pCO2 pO2 HCO3 ABG pH ABG Total CO2 ABG O2 Saturation ABG Base Excess Gregory Test ABG Potassium A-a O2 Difference Respiratory Index Glucose Lactate Liter Flow FiO2 Crit Value Called To Crit Value Called By Crit Value Read Back Blood Gas Notified Time Sodium Potassium Chloride Carbon Dioxide Anion Gap BUN Creatinine Est GFR ( Amer) Est GFR (Non-Af Amer) POC Glucose (mg/dL) 379 H 122 H 98 Random Glucose Calcium Phosphorus Magnesium Total Bilirubin AST ALT Alkaline Phosphatase Ammonia Total Protein Albumin Globulin Albumin/Globulin Ratio Arterial Blood Potassium 12/22/18 12/22/18 12/23/18 23:37 23:39 02:43 WBC RBC Hgb Hct MCV MCH MCHC RDW Plt Count MPV Neut % (Auto) Lymph % (Auto) [place] % (Auto) Eos % (Auto) Baso % (Auto) Neut # (Auto) Lymph # (Auto) [place] # (Auto) Eos # (Auto) Baso # (Auto) Neutrophils % (Manual) Band Neutrophils % Lymphocytes % (Manual) Monocytes % (Manual) Nucleated RBC % Platelet Estimate Poikilocytosis (manual Anisocytosis (manual) Ovalocytes Chana Cells Puncture Site pCO2 pO2 HCO3 ABG pH ABG Total CO2 ABG O2 Saturation ABG Base Excess Gregory Test ABG Potassium A-a O2 Difference Respiratory Index Glucose Lactate Liter Flow FiO2 Crit Value Called To Crit Value Called By Crit Value Read Back Blood Gas Notified Time Sodium Potassium Chloride Carbon Dioxide Anion Gap BUN Creatinine Est GFR ( Amer) Est GFR (Non-Af Amer) POC Glucose (mg/dL) 35 L* 136 H 131 H Random Glucose Calcium Phosphorus Magnesium Total Bilirubin AST ALT Alkaline Phosphatase Ammonia Total Protein Albumin Globulin Albumin/Globulin Ratio Arterial Blood Potassium 12/23/18 12/23/18 12/23/18 05:25 11:33 11:36 WBC RBC Hgb Hct MCV MCH MCHC RDW Plt Count MPV Neut % (Auto) Lymph % (Auto) [place] % (Auto) Eos % (Auto) Baso % (Auto) Neut # (Auto) Lymph # (Auto) [place] # (Auto) Eos # (Auto) Baso # (Auto) Neutrophils % (Manual) Band Neutrophils % Lymphocytes % (Manual) Monocytes % (Manual) Nucleated RBC % Platelet Estimate Poikilocytosis (manual Anisocytosis (manual) Ovalocytes Keira Cells Puncture Site pCO2 pO2 HCO3 ABG pH ABG Total CO2 ABG O2 Saturation ABG Base Excess Gregory Test ABG Potassium A-a O2 Difference Respiratory Index Glucose Lactate Liter Flow FiO2 Crit Value Called To Crit Value Called By Crit Value Read Back Blood Gas Notified Time Sodium Potassium Chloride Carbon Dioxide Anion Gap BUN Creatinine Est GFR ( Amer) Est GFR (Non-Af Amer) POC Glucose (mg/dL) 123 H < 20 L* 107 Random Glucose Calcium Phosphorus Magnesium Total Bilirubin AST ALT Alkaline Phosphatase Ammonia Total Protein Albumin Globulin Albumin/Globulin Ratio Arterial Blood Potassium 12/23/18 12/23/18 12/23/18 17:31 17:33 23:42 WBC RBC Hgb Hct MCV MCH MCHC RDW Plt Count MPV Neut % (Auto) Lymph % (Auto) [place] % (Auto) Eos % (Auto) Baso % (Auto) Neut # (Auto) Lymph # (Auto) [place] # (Auto) Eos # (Auto) Baso # (Auto) Neutrophils % (Manual) Band Neutrophils % Lymphocytes % (Manual) Monocytes % (Manual) Nucleated RBC % Platelet Estimate Poikilocytosis (manual Anisocytosis (manual) Ovalocytes Keira Cells Puncture Site pCO2 pO2 HCO3 ABG pH ABG Total CO2 ABG O2 Saturation ABG Base Excess Gregory Test ABG Potassium A-a O2 Difference Respiratory Index Glucose Lactate Liter Flow FiO2 Crit Value Called To Crit Value Called By Crit Value Read Back Blood Gas Notified Time Sodium Potassium Chloride Carbon Dioxide Anion Gap BUN Creatinine Est GFR ( Amer) Est GFR (Non-Af Amer) POC Glucose (mg/dL) 67 106 71 Random Glucose Calcium Phosphorus Magnesium Total Bilirubin AST ALT Alkaline Phosphatase Ammonia Total Protein Albumin Globulin Albumin/Globulin Ratio Arterial Blood Potassium 12/24/18 12/24/18 12/24/18 06:06 11:19 18:22 WBC RBC Hgb Hct MCV MCH MCHC RDW Plt Count MPV Neut % (Auto) Lymph % (Auto) [place] % (Auto) Eos % (Auto) Baso % (Auto) Neut # (Auto) Lymph # (Auto) [place] # (Auto) Eos # (Auto) Baso # (Auto) Neutrophils % (Manual) Band Neutrophils % Lymphocytes % (Manual) Monocytes % (Manual) Nucleated RBC % Platelet Estimate Poikilocytosis (manual Anisocytosis (manual) Ovalocytes Keira Cells Puncture Site pCO2 pO2 HCO3 ABG pH ABG Total CO2 ABG O2 Saturation ABG Base Excess Gregory Test ABG Potassium A-a O2 Difference Respiratory Index Glucose Lactate Liter Flow FiO2 Crit Value Called To Crit Value Called By Crit Value Read Back Blood Gas Notified Time Sodium Potassium Chloride Carbon Dioxide Anion Gap BUN Creatinine Est GFR ( Amer) Est GFR (Non-Af Amer) POC Glucose (mg/dL) 81 77 37 L* Random Glucose Calcium Phosphorus Magnesium Total Bilirubin AST ALT Alkaline Phosphatase Ammonia Total Protein Albumin Globulin Albumin/Globulin Ratio Arterial Blood Potassium 12/24/18 12/24/18 12/24/18 18:24 18:46 18:49 WBC RBC Hgb Hct MCV MCH MCHC RDW Plt Count MPV Neut % (Auto) Lymph % (Auto) [place] % (Auto) Eos % (Auto) Baso % (Auto) Neut # (Auto) Lymph # (Auto) [place] # (Auto) Eos # (Auto) Baso # (Auto) Neutrophils % (Manual) Band Neutrophils % Lymphocytes % (Manual) Monocytes % (Manual) Nucleated RBC % Platelet Estimate Poikilocytosis (manual Anisocytosis (manual) Ovalocytes Chana Cells Puncture Site pCO2 pO2 HCO3 ABG pH ABG Total CO2 ABG O2 Saturation ABG Base Excess Gregory Test ABG Potassium A-a O2 Difference Respiratory Index Glucose Lactate Liter Flow FiO2 Crit Value Called To Crit Value Called By Crit Value Read Back Blood Gas Notified Time Sodium Potassium Chloride Carbon Dioxide Anion Gap BUN Creatinine Est GFR ( Amer) Est GFR (Non-Af Amer) POC Glucose (mg/dL) 36 L* 36 L* 410 H* Random Glucose Calcium Phosphorus Magnesium Total Bilirubin AST ALT Alkaline Phosphatase Ammonia Total Protein Albumin Globulin Albumin/Globulin Ratio Arterial Blood Potassium 12/24/18 12/24/18 12/25/18 22:28 22:40 00:06 WBC RBC Hgb Hct MCV MCH MCHC RDW Plt Count MPV Neut % (Auto) Lymph % (Auto) [place] % (Auto) Eos % (Auto) Baso % (Auto) Neut # (Auto) Lymph # (Auto) [place] # (Auto) Eos # (Auto) Baso # (Auto) Neutrophils % (Manual) Band Neutrophils % Lymphocytes % (Manual) Monocytes % (Manual) Nucleated RBC % Platelet Estimate Poikilocytosis (manual Anisocytosis (manual) Ovalocytes Keira Cells Puncture Site pCO2 pO2 HCO3 ABG pH ABG Total CO2 ABG O2 Saturation ABG Base Excess Gregory Test ABG Potassium A-a O2 Difference Respiratory Index Glucose Lactate Liter Flow FiO2 Crit Value Called To Crit Value Called By Crit Value Read Back Blood Gas Notified Time Sodium 137 Potassium 4.7 Chloride 98 Carbon Dioxide 14 L Anion Gap 29 H BUN 49 H Creatinine 3.8 H Est GFR ( Amer) 19 Est GFR (Non-Af Amer) 16 POC Glucose (mg/dL) 25 L* Random Glucose 92 D Calcium 6.9 L Phosphorus Magnesium Total Bilirubin 8.0 H AST 1063 H ALT 209 H Alkaline Phosphatase 532 H Ammonia < 9 L D Total Protein 5.8 L Albumin 3.3 L Globulin 2.5 Albumin/Globulin Ratio 1.3 Arterial Blood Potassium 12/25/18 12/25/18 12/25/18 00:08 06:13 06:13 WBC 9.1 RBC 2.76 L Hgb 9.0 L Hct 27.2 L MCV 98.7 H MCH 32.6 H MCHC 33.0 RDW 20.8 H Plt Count 44 L MPV 10.4 Neut % (Auto) 91.0 H Lymph % (Auto) 8.0 L [place] % (Auto) 1.0 Eos % (Auto) 0.0 Baso % (Auto) 0.0 Neut # (Auto) 8.3 H Lymph # (Auto) 0.7 L [place] # (Auto) 0.1 Eos # (Auto) 0.0 Baso # (Auto) 0.0 Neutrophils % (Manual) 84 H Band Neutrophils % 9 H Lymphocytes % (Manual) 4 L Monocytes % (Manual) 3 Nucleated RBC % 1 H Platelet Estimate Decreased L Poikilocytosis (manual Slight Anisocytosis (manual) Moderate Ovalocytes Slight Keira Cells Slight Puncture Site pCO2 pO2 HCO3 ABG pH ABG Total CO2 ABG O2 Saturation ABG Base Excess Gregory Test ABG Potassium A-a O2 Difference Respiratory Index Glucose Lactate Liter Flow FiO2 Crit Value Called To Crit Value Called By Crit Value Read Back Blood Gas Notified Time Sodium 138 Potassium 4.9 Chloride 99 Carbon Dioxide 13 L Anion Gap 30 H BUN 52 H Creatinine 4.1 H Est GFR ( Amer) 17 Est GFR (Non-Af Amer) 14 POC Glucose (mg/dL) 75 Random Glucose 57 L D Calcium 7.0 L Phosphorus 4.1 Magnesium 2.3 Total Bilirubin 8.3 H AST 1144 H ALT 205 H Alkaline Phosphatase 572 H Ammonia Total Protein 5.8 L Albumin 3.4 L Globulin 2.4 Albumin/Globulin Ratio 1.4 Arterial Blood Potassium 12/25/18 12/25/18 12/25/18 06:27 06:30 07:10 WBC RBC Hgb Hct MCV MCH MCHC RDW Plt Count MPV Neut % (Auto) Lymph % (Auto) [place] % (Auto) Eos % (Auto) Baso % (Auto) Neut # (Auto) Lymph # (Auto) [place] # (Auto) Eos # (Auto) Baso # (Auto) Neutrophils % (Manual) Band Neutrophils % Lymphocytes % (Manual) Monocytes % (Manual) Nucleated RBC % Platelet Estimate Poikilocytosis (manual Anisocytosis (manual) Ovalocytes Chana Cells Puncture Site pCO2 pO2 HCO3 ABG pH ABG Total CO2 ABG O2 Saturation ABG Base Excess Gregory Test ABG Potassium A-a O2 Difference Respiratory Index Glucose Lactate Liter Flow FiO2 Crit Value Called To Crit Value Called By Crit Value Read Back Blood Gas Notified Time Sodium Potassium Chloride Carbon Dioxide Anion Gap BUN Creatinine Est GFR ( Amer) Est GFR (Non-Af Amer) POC Glucose (mg/dL) 64 L 56 L 100 Random Glucose Calcium Phosphorus Magnesium Total Bilirubin AST ALT Alkaline Phosphatase Ammonia Total Protein Albumin Globulin Albumin/Globulin Ratio Arterial Blood Potassium 12/25/18 08:55 WBC RBC Hgb Hct MCV MCH MCHC RDW Plt Count MPV Neut % (Auto) Lymph % (Auto) [place] % (Auto) Eos % (Auto) Baso % (Auto) Neut # (Auto) Lymph # (Auto) [place] # (Auto) Eos # (Auto) Baso # (Auto) Neutrophils % (Manual) Band Neutrophils % Lymphocytes % (Manual) Monocytes % (Manual) Nucleated RBC % Platelet Estimate Poikilocytosis (manual Anisocytosis (manual) Ovalocytes Ekira Cells Puncture Site [place] pCO2 17 L* pO2 99 HCO3 14.9 L ABG pH 7.37 ABG Total CO2 10.3 L ABG O2 Saturation 99.8 H ABG Base Excess -12.8 L Gregory Test Na ABG Potassium 4.6 A-a O2 Difference 136.0 Respiratory Index 1.4 Glucose 95 Lactate 11.5 H* Liter Flow 4.0 FiO2 36.0 Crit Value Called To Safia alexis Crit Value Called By [facility] Crit Value Read Back Y Blood Gas Notified Time 900 Sodium 139.0 Potassium Chloride 102.0 Carbon Dioxide Anion Gap BUN Creatinine Est GFR ( Amer) Est GFR (Non-Af Amer) POC Glucose (mg/dL) Random Glucose Calcium Phosphorus Magnesium Total Bilirubin AST ALT Alkaline Phosphatase Ammonia Total Protein Albumin Globulin Albumin/Globulin Ratio Arterial Blood Potassium 4.6 Radiology Impressions: Radiology Impressions Abdomen Ultrasound 12/24/18 11:05 IMPRESSION: Hepatomegaly. No focal hepatic masses. Redemonstration of right upper quadrant ascites. Gallstones/sludge. No evidence of gallbladder wall thickening or sonographic Cortez's sign. 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 Cardio HFrEF -EF 15-20% -Cardiology consulted, Dr Pan Nephro/ Acute Renal Failure -R femoral HD cath placed for urgent dialysis which patient had on admission -Nephro consult, Dr. Blevins -Continue HD per nephro -Repeat CXR 12/25 shows significant improvement Stage 4 Prostate CA -Off chemotherapy -Opiate pain management c/i 2/2 opioid overdose UTI -Urine growing E Coli 12/10 - likely septic shock causing hypotension and renal hypoperfusion -ABx: Cefepime -F/u repeat cultures Pulm -Maintain spO2 >92% -Maintain pH 7.35-7.45 Neuro Opiate Withdrawal -Opiate medications d/c's -Treating symptomatically -Monitor vitals GI Cirrhosis/Ascites -Improved with HD -Possible paracentesis when medically stabilized ID -Urine cx - E Coli 12/21 -ABx --Cefepime PPx -DVT: c/i 2/2 thrombocytopenia -GI: Protonix 40 IVP Q12 -Dopamine drip -HHD, modified dysphagia: fine-chopped and thin liquids Assessment and plan d/w Dr. Jj Broussard, PGY-1 <Nico Gardner S - Last Filed: 12/25/18 16:32> CCU Subjective - Physician Review Critical Care Time Spent (in minutes): 45 CCU Objective - Vital Signs / Intake & Output Vital Signs (Last 4 hours): Vital Signs Temp Pulse Pulse Resp BP BP Pulse Ox 12/25/18 15:04 111 H 17 95/66 L 91 L 12/25/18 14:49 104 H 19 92/66 L 100 12/25/18 14:34 101 H 19 107/56 L 92 L 12/25/18 14:19 95/59 L 12/25/18 14:04 107/76 12/25/18 14:00 108 H 23 12/25/18 13:49 105/71 12/25/18 13:40 97.6 F 107 H 15 116/74 96 12/25/18 13:34 117 H 15 106/67 97 12/25/18 13:20 107 H 15 109/76 96 12/25/18 13:19 98 H 16 116/74 93 L 12/25/18 13:04 120 H 19 109/76 98 12/25/18 13:00 109 H 19 96 12/25/18 12:50 111 H 15 109/76 96 12/25/18 12:49 108 H 23 105/70 93 L 12/25/18 12:34 112 H 20 109/74 99 Intake and Output (Last 8hrs): Intake & Output 12/25/18 12/25/18 12/25/18 06:59 14:59 22:59 Intake Total 87.4 273.6 7.7 Output Total 0 Balance 87.4 273.6 7.7 Weight 154 lb Intake: IV 0 189 Intake, IV Amount 87.4 84.6 7.7 Rt IJ Medial port 87.4 84.6 7.7 Oral 0 0 Output: Urine 0 Urethral ([place]) 0 - Medications Active Medications: Active Medications Generic Name Dose Route Start Last Admin Trade Name Freq PRN Reason Stop Dose Admin Dextrose 0 ml 12/21/18 12:38 12/25/18 06:42 Dextrose 50% Inj IV 50 ml STAT PRN Administration Hypoglycemia Protocol Protocol Dextrose 0 gm 12/21/18 12:38 Glutose 15 PO ONCE PRN Hypoglycemia Protocol Protocol Glucagon 0 mg 12/21/18 12:38 Glucagen Diagnostic Kit IM STAT PRN Hypoglycemia Protocol Protocol Home Med 1 tab 12/23/18 10:00 12/25/18 10:47 Patient's Own Medication PO 1 tab DAILY JOSÉ MIGUEL Administration Hydrocortisone Sodium Succinate 100 mg 12/22/18 17:00 12/25/18 10:47 Solu-Cortef IV 100 mg Q8H JOSÉ MIGUEL Administration Cefepime HCl 1 gm in 50 mls @ 100 mls/hr 12/21/18 17:45 12/24/18 17:04 Maxipime Iv 1 Gm Premix IVPB 100 mls/hr Q24H JOSÉ MIGUEL Administration Protocol Vasopressin 40 units/ Dextrose 42 mls @ 0.63 mls/hr 12/22/18 05:15 12/25/18 0 5:21 IV Not Given .Q24H JOSÉ MIGUEL Protocol 0.01 UNITS/MIN Dopamine HCl/Dextrose 400 mg in 250 mls @ 5.239 mls/hr 12/25/18 11:01 12/25/18 13:15 Dopamine 400mg/250ml D5w IV 2.93 mcg/kg/min .Q24H PRN 7.675 mls/hr TITRATE PER MD ORDER Titration Protocol 2 MCG/KG/MIN Levothyroxine Sodium 50 mcg 12/21/18 08:00 12/25/18 06:38 Synthroid PO 50 mcg DAILY@0630 JOSÉ MIGUEL Administration Pantoprazole Sodium 40 mg 12/22/18 09:00 12/25/18 10:46 Protonix Inj IVP 40 mg Q12H JOSÉ MIGUEL Administration Rosuvastatin Calcium 5 mg 12/21/18 22:00 12/24/18 21:35 Crestor PO 5 mg HS JOSÉ MIGUEL Administration Sodium Bicarbonate 1,300 mg 12/22/18 12:00 12/22/18 19:04 Sodium Bicarbonate Tab PO 1,300 mg Q6 JOSÉ MIGUEL Administration Sodium Bicarbonate 50 meq 12/22/18 08:45 12/22/18 20:46 Sodium Bicarbonate 8.4% (50 Meq) Vial IVP 50 meq Q4H JOSÉ MIGUEL Administration Tamsulosin HCl 0.4 mg 12/21/18 10:00 12/25/18 10:47 Flomax PO 0.4 mg DAILY JOSÉ MIGUEL Administration - Patient Studies Lab Studies: Microbiology Studies 12/21/18 05:53 Blood Culture - Preliminary Blood-Venous NO GROWTH AFTER 4 DAYS 12/21/18 05:53 Blood Culture - Preliminary Blood-Venous NO GROWTH AFTER 4 DAYS Lab Studies 12/25/18 12/25/18 12/25/18 Range/Units 08:55 07:10 06:30 WBC (4.8-10.8) K/uL RBC (4.40-5.90) Mil/uL Hgb (12.0-18.0) g/dL Hct (35.0-51.0) % MCV (80.0-94.0) fL MCH (27.0-31.0) pg MCHC (33.0-37.0) g/dL RDW (11.5-14.5) % Plt Count (130-400) K/uL MPV (7.2-11.7) fL Neut % (Auto) (50.0-75.0) % Lymph % (Auto) (20.0-40.0) % [place] % (Auto) (0.0-10.0) % Eos % (Auto) (0.0-4.0) % Baso % (Auto) (0.0-2.0) % Neut # (Auto) (1.8-7.0) K/uL Lymph # (Auto) (1.0-4.3) K/uL [place] # (Auto) (0.0-0.8) K/uL Eos # (Auto) (0.0-0.7) K/uL Baso # (Auto) (0.0-0.2) K/uL Neutrophils % (Manual) (50-75) % Band Neutrophils % (0-2) % Lymphocytes % (Manual) (20-40) % Monocytes % (Manual) (0-10) % Nucleated RBC % (0-0) % Platelet Estimate (NORMAL) Poikilocytosis (manual Anisocytosis (manual) Ovalocytes Chana Cells Puncture Site [place] pCO2 17 L* (35-45) mm/Hg pO2 99 (80-100) mm/Hg HCO3 14.9 L (21-28) mmol/L ABG pH 7.37 (7.35-7.45) ABG Total CO2 10.3 L (22-28) mmol/L ABG O2 Saturation 99.8 H (95-98) % ABG Base Excess -12.8 L (-2.0-3.0) mmol/L Gregory Test Na ABG Potassium 4.6 (3.6-5.2) mmol/L A-a O2 Difference 136.0 mm/Hg Respiratory Index 1.4 Glucose 95 (75-110) mg/dl Lactate 11.5 H* (0.7-2.1) mmol/L Liter Flow 4.0 FiO2 36.0 % Crit Value Called To Safia alexis Crit Value Called By [facility] Crit Value Read Back Y Blood Gas Notified Time 900 Sodium 139.0 (132-148) mmol/L Potassium (3.6-5.2) mmol/L Chloride 102.0 (98-107) mmol/L Carbon Dioxide (22-30) mmol/L Anion Gap (10-20) BUN (9-20) mg/dL Creatinine (0.8-1.5) mg/dL Est GFR ( Amer) Est GFR (Non-Af Amer) POC Glucose (mg/dL) 100 56 L (65-110) mg/dL Random Glucose (75-110) mg/dL Calcium (8.6-10.4) mg/dl Phosphorus (2.5-4.5) mg/dL Magnesium (1.6-2.3) mg/dL Total Bilirubin (0.2-1.3) mg/dL AST (17-59) U/L ALT (21-72) U/L Alkaline Phosphatase (38-126) U/L Ammonia (9-33) umol/L Total Protein (6.3-8.3) g/dL Albumin (3.5-5.0) g/dL Globulin (2.2-3.9) gm/dL Albumin/Globulin Ratio (1.0-2.1) Arterial Blood Potassium 4.6 (3.6-5.2) mmol/L 12/25/18 12/25/18 12/25/18 Range/Units 06:27 06:13 06:13 WBC 9.1 (4.8-10.8) K/uL RBC 2.76 L (4.40-5.90) Mil/uL Hgb 9.0 L (12.0-18.0) g/dL Hct 27.2 L (35.0-51.0) % MCV 98.7 H (80.0-94.0) fL MCH 32.6 H (27.0-31.0) pg MCHC 33.0 (33.0-37.0) g/dL RDW 20.8 H (11.5-14.5) % Plt Count 44 L (130-400) K/uL MPV 10.4 (7.2-11.7) fL Neut % (Auto) 91.0 H (50.0-75.0) % Lymph % (Auto) 8.0 L (20.0-40.0) % [place] % (Auto) 1.0 (0.0-10.0) % Eos % (Auto) 0.0 (0.0-4.0) % Baso % (Auto) 0.0 (0.0-2.0) % Neut # (Auto) 8.3 H (1.8-7.0) K/uL Lymph # (Auto) 0.7 L (1.0-4.3) K/uL [place] # (Auto) 0.1 (0.0-0.8) K/uL Eos # (Auto) 0.0 (0.0-0.7) K/uL Baso # (Auto) 0.0 (0.0-0.2) K/uL Neutrophils % (Manual) 84 H (50-75) % Band Neutrophils % 9 H (0-2) % Lymphocytes % (Manual) 4 L (20-40) % Monocytes % (Manual) 3 (0-10) % Nucleated RBC % 1 H (0-0) % Platelet Estimate Decreased L (NORMAL) Poikilocytosis (manual Slight Anisocytosis (manual) Moderate Ovalocytes Slight [place] Cells Slight Puncture Site pCO2 (35-45) mm/Hg pO2 (80-100) mm/Hg HCO3 (21-28) mmol/L ABG pH (7.35-7.45) ABG Total CO2 (22-28) mmol/L ABG O2 Saturation (95-98) % ABG Base Excess (-2.0-3.0) mmol/L Gregory Test ABG Potassium (3.6-5.2) mmol/L A-a O2 Difference mm/Hg Respiratory Index Glucose (75-110) mg/dl Lactate (0.7-2.1) mmol/L Liter Flow FiO2 % Crit Value Called To Crit Value Called By Crit Value Read Back Blood Gas Notified Time Sodium 138 (132-148) mmol/L Potassium 4.9 (3.6-5.2) mmol/L Chloride 99 (98-107) mmol/L Carbon Dioxide 13 L (22-30) mmol/L Anion Gap 30 H (10-20) BUN 52 H (9-20) mg/dL Creatinine 4.1 H (0.8-1.5) mg/dL Est GFR ( Amer) 17 Est GFR (Non-Af Amer) 14 POC Glucose (mg/dL) 64 L (65-110) mg/dL Random Glucose 57 L D (75-110) mg/dL Calcium 7.0 L (8.6-10.4) mg/dl Phosphorus 4.1 (2.5-4.5) mg/dL Magnesium 2.3 (1.6-2.3) mg/dL Total Bilirubin 8.3 H (0.2-1.3) mg/dL AST 1144 H (17-59) U/L ALT 205 H (21-72) U/L Alkaline Phosphatase 572 H (38-126) U/L Ammonia (9-33) umol/L Total Protein 5.8 L (6.3-8.3) g/dL Albumin 3.4 L (3.5-5.0) g/dL Globulin 2.4 (2.2-3.9) gm/dL Albumin/Globulin Ratio 1.4 (1.0-2.1) Arterial Blood Potassium (3.6-5.2) mmol/L 12/25/18 12/25/18 12/24/18 Range/Units 00:08 00:06 22:40 WBC (4.8-10.8) K/uL RBC (4.40-5.90) Mil/uL Hgb (12.0-18.0) g/dL Hct (35.0-51.0) % MCV (80.0-94.0) fL MCH (27.0-31.0) pg MCHC (33.0-37.0) g/dL RDW (11.5-14.5) % Plt Count (130-400) K/uL MPV (7.2-11.7) fL Neut % (Auto) (50.0-75.0) % Lymph % (Auto) (20.0-40.0) % [place] % (Auto) (0.0-10.0) % Eos % (Auto) (0.0-4.0) % Baso % (Auto) (0.0-2.0) % Neut # (Auto) (1.8-7.0) K/uL Lymph # (Auto) (1.0-4.3) K/uL [place] # (Auto) (0.0-0.8) K/uL Eos # (Auto) (0.0-0.7) K/uL Baso # (Auto) (0.0-0.2) K/uL Neutrophils % (Manual) (50-75) % Band Neutrophils % (0-2) % Lymphocytes % (Manual) (20-40) % Monocytes % (Manual) (0-10) % Nucleated RBC % (0-0) % Platelet Estimate (NORMAL) Poikilocytosis (manual Anisocytosis (manual) Ovalocytes Keira Cells Puncture Site pCO2 (35-45) mm/Hg pO2 (80-100) mm/Hg HCO3 (21-28) mmol/L ABG pH (7.35-7.45) ABG Total CO2 (22-28) mmol/L ABG O2 Saturation (95-98) % ABG Base Excess (-2.0-3.0) mmol/L Gregory Test ABG Potassium (3.6-5.2) mmol/L A-a O2 Difference mm/Hg Respiratory Index Glucose (75-110) mg/dl Lactate (0.7-2.1) mmol/L Liter Flow FiO2 % Crit Value Called To Crit Value Called By Crit Value Read Back Blood Gas Notified Time Sodium (132-148) mmol/L Potassium (3.6-5.2) mmol/L Chloride (98-107) mmol/L Carbon Dioxide (22-30) mmol/L Anion Gap (10-20) BUN (9-20) mg/dL Creatinine (0.8-1.5) mg/dL Est GFR ( Amer) Est GFR (Non-Af Amer) POC Glucose (mg/dL) 75 25 L* (65-110) mg/dL Random Glucose (75-110) mg/dL Calcium (8.6-10.4) mg/dl Phosphorus (2.5-4.5) mg/dL Magnesium (1.6-2.3) mg/dL Total Bilirubin (0.2-1.3) mg/dL AST (17-59) U/L ALT (21-72) U/L Alkaline Phosphatase (38-126) U/L Ammonia < 9 L D (9-33) umol/L Total Protein (6.3-8.3) g/dL Albumin (3.5-5.0) g/dL Globulin (2.2-3.9) gm/dL Albumin/Globulin Ratio (1.0-2.1) Arterial Blood Potassium (3.6-5.2) mmol/L 12/24/18 12/24/18 12/24/18 Range/Units 22:28 18:49 18:46 WBC (4.8-10.8) K/uL RBC (4.40-5.90) Mil/uL Hgb (12.0-18.0) g/dL Hct (35.0-51.0) % MCV (80.0-94.0) fL MCH (27.0-31.0) pg MCHC (33.0-37.0) g/dL RDW (11.5-14.5) % Plt Count (130-400) K/uL MPV (7.2-11.7) fL Neut % (Auto) (50.0-75.0) % Lymph % (Auto) (20.0-40.0) % [place] % (Auto) (0.0-10.0) % Eos % (Auto) (0.0-4.0) % Baso % (Auto) (0.0-2.0) % Neut # (Auto) (1.8-7.0) K/uL Lymph # (Auto) (1.0-4.3) K/uL [place] # (Auto) (0.0-0.8) K/uL Eos # (Auto) (0.0-0.7) K/uL Baso # (Auto) (0.0-0.2) K/uL Neutrophils % (Manual) (50-75) % Band Neutrophils % (0-2) % Lymphocytes % (Manual) (20-40) % Monocytes % (Manual) (0-10) % Nucleated RBC % (0-0) % Platelet Estimate (NORMAL) Poikilocytosis (manual Anisocytosis (manual) Ovalocytes Keira Cells Puncture Site pCO2 (35-45) mm/Hg pO2 (80-100) mm/Hg HCO3 (21-28) mmol/L ABG pH (7.35-7.45) ABG Total CO2 (22-28) mmol/L ABG O2 Saturation (95-98) % ABG Base Excess (-2.0-3.0) mmol/L Gregory Test ABG Potassium (3.6-5.2) mmol/L A-a O2 Difference mm/Hg Respiratory Index Glucose (75-110) mg/dl Lactate (0.7-2.1) mmol/L Liter Flow FiO2 % Crit Value Called To Crit Value Called By Crit Value Read Back Blood Gas Notified Time Sodium 137 (132-148) mmol/L Potassium 4.7 (3.6-5.2) mmol/L Chloride 98 (98-107) mmol/L Carbon Dioxide 14 L (22-30) mmol/L Anion Gap 29 H (10-20) BUN 49 H (9-20) mg/dL Creatinine 3.8 H (0.8-1.5) mg/dL Est GFR ( Amer) 19 Est GFR (Non-Af Amer) 16 POC Glucose (mg/dL) 410 H* 36 L* (65-110) mg/dL Random Glucose 92 D (75-110) mg/dL Calcium 6.9 L (8.6-10.4) mg/dl Phosphorus (2.5-4.5) mg/dL Magnesium (1.6-2.3) mg/dL Total Bilirubin 8.0 H (0.2-1.3) mg/dL AST 1063 H (17-59) U/L ALT 209 H (21-72) U/L Alkaline Phosphatase 532 H (38-126) U/L Ammonia (9-33) umol/L Total Protein 5.8 L (6.3-8.3) g/dL Albumin 3.3 L (3.5-5.0) g/dL Globulin 2.5 (2.2-3.9) gm/dL Albumin/Globulin Ratio 1.3 (1.0-2.1) Arterial Blood Potassium (3.6-5.2) mmol/L 12/24/18 12/24/18 12/24/18 Range/Units 18:24 18:22 11:19 WBC (4.8-10.8) K/uL RBC (4.40-5.90) Mil/uL Hgb (12.0-18.0) g/dL Hct (35.0-51.0) % MCV (80.0-94.0) fL MCH (27.0-31.0) pg MCHC (33.0-37.0) g/dL RDW (11.5-14.5) % Plt Count (130-400) K/uL MPV (7.2-11.7) fL Neut % (Auto) (50.0-75.0) % Lymph % (Auto) (20.0-40.0) % [place] % (Auto) (0.0-10.0) % Eos % (Auto) (0.0-4.0) % Baso % (Auto) (0.0-2.0) % Neut # (Auto) (1.8-7.0) K/uL Lymph # (Auto) (1.0-4.3) K/uL [place] # (Auto) (0.0-0.8) K/uL Eos # (Auto) (0.0-0.7) K/uL Baso # (Auto) (0.0-0.2) K/uL Neutrophils % (Manual) (50-75) % Band Neutrophils % (0-2) % Lymphocytes % (Manual) (20-40) % Monocytes % (Manual) (0-10) % Nucleated RBC % (0-0) % Platelet Estimate (NORMAL) Poikilocytosis (manual Anisocytosis (manual) Ovalocytes Keira Cells Puncture Site pCO2 (35-45) mm/Hg pO2 (80-100) mm/Hg HCO3 (21-28) mmol/L ABG pH (7.35-7.45) ABG Total CO2 (22-28) mmol/L ABG O2 Saturation (95-98) % ABG Base Excess (-2.0-3.0) mmol/L Gregory Test ABG Potassium (3.6-5.2) mmol/L A-a O2 Difference mm/Hg Respiratory Index Glucose (75-110) mg/dl Lactate (0.7-2.1) mmol/L Liter Flow FiO2 % Crit Value Called To Crit Value Called By Crit Value Read Back Blood Gas Notified Time Sodium (132-148) mmol/L Potassium (3.6-5.2) mmol/L Chloride (98-107) mmol/L Carbon Dioxide (22-30) mmol/L Anion Gap (10-20) BUN (9-20) mg/dL Creatinine (0.8-1.5) mg/dL Est GFR ( Amer) Est GFR (Non-Af Amer) POC Glucose (mg/dL) 36 L* 37 L* 77 (65-110) mg/dL Random Glucose (75-110) mg/dL Calcium (8.6-10.4) mg/dl Phosphorus (2.5-4.5) mg/dL Magnesium (1.6-2.3) mg/dL Total Bilirubin (0.2-1.3) mg/dL AST (17-59) U/L ALT (21-72) U/L Alkaline Phosphatase (38-126) U/L Ammonia (9-33) umol/L Total Protein (6.3-8.3) g/dL Albumin (3.5-5.0) g/dL Globulin (2.2-3.9) gm/dL Albumin/Globulin Ratio (1.0-2.1) Arterial Blood Potassium (3.6-5.2) mmol/L 12/24/18 12/23/18 12/23/18 Range/Units 06:06 23:42 17:33 WBC (4.8-10.8) K/uL RBC (4.40-5.90) Mil/uL Hgb (12.0-18.0) g/dL Hct (35.0-51.0) % MCV (80.0-94.0) fL MCH (27.0-31.0) pg MCHC (33.0-37.0) g/dL RDW (11.5-14.5) % Plt Count (130-400) K/uL MPV (7.2-11.7) fL Neut % (Auto) (50.0-75.0) % Lymph % (Auto) (20.0-40.0) % [place] % (Auto) (0.0-10.0) % Eos % (Auto) (0.0-4.0) % Baso % (Auto) (0.0-2.0) % Neut # (Auto) (1.8-7.0) K/uL Lymph # (Auto) (1.0-4.3) K/uL [place] # (Auto) (0.0-0.8) K/uL Eos # (Auto) (0.0-0.7) K/uL Baso # (Auto) (0.0-0.2) K/uL Neutrophils % (Manual) (50-75) % Band Neutrophils % (0-2) % Lymphocytes % (Manual) (20-40) % Monocytes % (Manual) (0-10) % Nucleated RBC % (0-0) % Platelet Estimate (NORMAL) Poikilocytosis (manual Anisocytosis (manual) Ovalocytes Chana Cells Puncture Site pCO2 (35-45) mm/Hg pO2 (80-100) mm/Hg HCO3 (21-28) mmol/L ABG pH (7.35-7.45) ABG Total CO2 (22-28) mmol/L ABG O2 Saturation (95-98) % ABG Base Excess (-2.0-3.0) mmol/L Gregory Test ABG Potassium (3.6-5.2) mmol/L A-a O2 Difference mm/Hg Respiratory Index Glucose (75-110) mg/dl Lactate (0.7-2.1) mmol/L Liter Flow FiO2 % Crit Value Called To Crit Value Called By Crit Value Read Back Blood Gas Notified Time Sodium (132-148) mmol/L Potassium (3.6-5.2) mmol/L Chloride (98-107) mmol/L Carbon Dioxide (22-30) mmol/L Anion Gap (10-20) BUN (9-20) mg/dL Creatinine (0.8-1.5) mg/dL Est GFR ( Amer) Est GFR (Non-Af Amer) POC Glucose (mg/dL) 81 71 106 (65-110) mg/dL Random Glucose (75-110) mg/dL Calcium (8.6-10.4) mg/dl Phosphorus (2.5-4.5) mg/dL Magnesium (1.6-2.3) mg/dL Total Bilirubin (0.2-1.3) mg/dL AST (17-59) U/L ALT (21-72) U/L Alkaline Phosphatase (38-126) U/L Ammonia (9-33) umol/L Total Protein (6.3-8.3) g/dL Albumin (3.5-5.0) g/dL Globulin (2.2-3.9) gm/dL Albumin/Globulin Ratio (1.0-2.1) Arterial Blood Potassium (3.6-5.2) mmol/L 12/23/18 12/23/18 12/23/18 Range/Units 17:31 11:36 11:33 WBC (4.8-10.8) K/uL RBC (4.40-5.90) Mil/uL Hgb (12.0-18.0) g/dL Hct (35.0-51.0) % MCV (80.0-94.0) fL MCH (27.0-31.0) pg MCHC (33.0-37.0) g/dL RDW (11.5-14.5) % Plt Count (130-400) K/uL MPV (7.2-11.7) fL Neut % (Auto) (50.0-75.0) % Lymph % (Auto) (20.0-40.0) % [place] % (Auto) (0.0-10.0) % Eos % (Auto) (0.0-4.0) % Baso % (Auto) (0.0-2.0) % Neut # (Auto) (1.8-7.0) K/uL Lymph # (Auto) (1.0-4.3) K/uL [place] # (Auto) (0.0-0.8) K/uL Eos # (Auto) (0.0-0.7) K/uL Baso # (Auto) (0.0-0.2) K/uL Neutrophils % (Manual) (50-75) % Band Neutrophils % (0-2) % Lymphocytes % (Manual) (20-40) % Monocytes % (Manual) (0-10) % Nucleated RBC % (0-0) % Platelet Estimate (NORMAL) Poikilocytosis (manual Anisocytosis (manual) Ovalocytes Keira Cells Puncture Site pCO2 (35-45) mm/Hg pO2 (80-100) mm/Hg HCO3 (21-28) mmol/L ABG pH (7.35-7.45) ABG Total CO2 (22-28) mmol/L ABG O2 Saturation (95-98) % ABG Base Excess (-2.0-3.0) mmol/L Gregory Test ABG Potassium (3.6-5.2) mmol/L A-a O2 Difference mm/Hg Respiratory Index Glucose (75-110) mg/dl Lactate (0.7-2.1) mmol/L Liter Flow FiO2 % Crit Value Called To Crit Value Called By Crit Value Read Back Blood Gas Notified Time Sodium (132-148) mmol/L Potassium (3.6-5.2) mmol/L Chloride (98-107) mmol/L Carbon Dioxide (22-30) mmol/L Anion Gap (10-20) BUN (9-20) mg/dL Creatinine (0.8-1.5) mg/dL Est GFR ( Amer) Est GFR (Non-Af Amer) POC Glucose (mg/dL) 67 107 < 20 L* (65-110) mg/dL Random Glucose (75-110) mg/dL Calcium (8.6-10.4) mg/dl Phosphorus (2.5-4.5) mg/dL Magnesium (1.6-2.3) mg/dL Total Bilirubin (0.2-1.3) mg/dL AST (17-59) U/L ALT (21-72) U/L Alkaline Phosphatase (38-126) U/L Ammonia (9-33) umol/L Total Protein (6.3-8.3) g/dL Albumin (3.5-5.0) g/dL Globulin (2.2-3.9) gm/dL Albumin/Globulin Ratio (1.0-2.1) Arterial Blood Potassium (3.6-5.2) mmol/L 12/23/18 12/23/18 12/22/18 Range/Units 05:25 02:43 23:39 WBC (4.8-10.8) K/uL RBC (4.40-5.90) Mil/uL Hgb (12.0-18.0) g/dL Hct (35.0-51.0) % MCV (80.0-94.0) fL MCH (27.0-31.0) pg MCHC (33.0-37.0) g/dL RDW (11.5-14.5) % Plt Count (130-400) K/uL MPV (7.2-11.7) fL Neut % (Auto) (50.0-75.0) % Lymph % (Auto) (20.0-40.0) % [place] % (Auto) (0.0-10.0) % Eos % (Auto) (0.0-4.0) % Baso % (Auto) (0.0-2.0) % Neut # (Auto) (1.8-7.0) K/uL Lymph # (Auto) (1.0-4.3) K/uL [place] # (Auto) (0.0-0.8) K/uL Eos # (Auto) (0.0-0.7) K/uL Baso # (Auto) (0.0-0.2) K/uL Neutrophils % (Manual) (50-75) % Band Neutrophils % (0-2) % Lymphocytes % (Manual) (20-40) % Monocytes % (Manual) (0-10) % Nucleated RBC % (0-0) % Platelet Estimate (NORMAL) Poikilocytosis (manual Anisocytosis (manual) Ovalocytes Chana Cells Puncture Site pCO2 (35-45) mm/Hg pO2 (80-100) mm/Hg HCO3 (21-28) mmol/L ABG pH (7.35-7.45) ABG Total CO2 (22-28) mmol/L ABG O2 Saturation (95-98) % ABG Base Excess (-2.0-3.0) mmol/L Gregory Test ABG Potassium (3.6-5.2) mmol/L A-a O2 Difference mm/Hg Respiratory Index Glucose (75-110) mg/dl Lactate (0.7-2.1) mmol/L Liter Flow FiO2 % Crit Value Called To Crit Value Called By Crit Value Read Back Blood Gas Notified Time Sodium (132-148) mmol/L Potassium (3.6-5.2) mmol/L Chloride (98-107) mmol/L Carbon Dioxide (22-30) mmol/L Anion Gap (10-20) BUN (9-20) mg/dL Creatinine (0.8-1.5) mg/dL Est GFR ( Amer) Est GFR (Non-Af Amer) POC Glucose (mg/dL) 123 H 131 H 136 H (65-110) mg/dL Random Glucose (75-110) mg/dL Calcium (8.6-10.4) mg/dl Phosphorus (2.5-4.5) mg/dL Magnesium (1.6-2.3) mg/dL Total Bilirubin (0.2-1.3) mg/dL AST (17-59) U/L ALT (21-72) U/L Alkaline Phosphatase (38-126) U/L Ammonia (9-33) umol/L Total Protein (6.3-8.3) g/dL Albumin (3.5-5.0) g/dL Globulin (2.2-3.9) gm/dL Albumin/Globulin Ratio (1.0-2.1) Arterial Blood Potassium (3.6-5.2) mmol/L 12/22/18 12/22/18 12/22/18 Range/Units 23:37 17:56 04:58 WBC (4.8-10.8) K/uL RBC (4.40-5.90) Mil/uL Hgb (12.0-18.0) g/dL Hct (35.0-51.0) % MCV (80.0-94.0) fL MCH (27.0-31.0) pg MCHC (33.0-37.0) g/dL RDW (11.5-14.5) % Plt Count (130-400) K/uL MPV (7.2-11.7) fL Neut % (Auto) (50.0-75.0) % Lymph % (Auto) (20.0-40.0) % [place] % (Auto) (0.0-10.0) % Eos % (Auto) (0.0-4.0) % Baso % (Auto) (0.0-2.0) % Neut # (Auto) (1.8-7.0) K/uL Lymph # (Auto) (1.0-4.3) K/uL [place] # (Auto) (0.0-0.8) K/uL Eos # (Auto) (0.0-0.7) K/uL Baso # (Auto) (0.0-0.2) K/uL Neutrophils % (Manual) (50-75) % Band Neutrophils % (0-2) % Lymphocytes % (Manual) (20-40) % Monocytes % (Manual) (0-10) % Nucleated RBC % (0-0) % Platelet Estimate (NORMAL) Poikilocytosis (manual Anisocytosis (manual) Ovalocytes Chana Cells Puncture Site pCO2 (35-45) mm/Hg pO2 (80-100) mm/Hg HCO3 (21-28) mmol/L ABG pH (7.35-7.45) ABG Total CO2 (22-28) mmol/L ABG O2 Saturation (95-98) % ABG Base Excess (-2.0-3.0) mmol/L Gregory Test ABG Potassium (3.6-5.2) mmol/L A-a O2 Difference mm/Hg Respiratory Index Glucose (75-110) mg/dl Lactate (0.7-2.1) mmol/L Liter Flow FiO2 % Crit Value Called To Crit Value Called By Crit Value Read Back Blood Gas Notified Time Sodium (132-148) mmol/L Potassium (3.6-5.2) mmol/L Chloride (98-107) mmol/L Carbon Dioxide (22-30) mmol/L Anion Gap (10-20) BUN (9-20) mg/dL Creatinine (0.8-1.5) mg/dL Est GFR ( Amer) Est GFR (Non-Af Amer) POC Glucose (mg/dL) 35 L* 98 122 H (65-110) mg/dL Random Glucose (75-110) mg/dL Calcium (8.6-10.4) mg/dl Phosphorus (2.5-4.5) mg/dL Magnesium (1.6-2.3) mg/dL Total Bilirubin (0.2-1.3) mg/dL AST (17-59) U/L ALT (21-72) U/L Alkaline Phosphatase (38-126) U/L Ammonia (9-33) umol/L Total Protein (6.3-8.3) g/dL Albumin (3.5-5.0) g/dL Globulin (2.2-3.9) gm/dL Albumin/Globulin Ratio (1.0-2.1) Arterial Blood Potassium (3.6-5.2) mmol/L 12/21/18 12/21/18 12/21/18 Range/Units 23:45 22:01 20:37 WBC (4.8-10.8) K/uL RBC (4.40-5.90) Mil/uL Hgb (12.0-18.0) g/dL Hct (35.0-51.0) % MCV (80.0-94.0) fL MCH (27.0-31.0) pg MCHC (33.0-37.0) g/dL RDW (11.5-14.5) % Plt Count (130-400) K/uL MPV (7.2-11.7) fL Neut % (Auto) (50.0-75.0) % Lymph % (Auto) (20.0-40.0) % [place] % (Auto) (0.0-10.0) % Eos % (Auto) (0.0-4.0) % Baso % (Auto) (0.0-2.0) % Neut # (Auto) (1.8-7.0) K/uL Lymph # (Auto) (1.0-4.3) K/uL [place] # (Auto) (0.0-0.8) K/uL Eos # (Auto) (0.0-0.7) K/uL Baso # (Auto) (0.0-0.2) K/uL Neutrophils % (Manual) (50-75) % Band Neutrophils % (0-2) % Lymphocytes % (Manual) (20-40) % Monocytes % (Manual) (0-10) % Nucleated RBC % (0-0) % Platelet Estimate (NORMAL) Poikilocytosis (manual Anisocytosis (manual) Ovalocytes Keira Cells Puncture Site pCO2 (35-45) mm/Hg pO2 (80-100) mm/Hg HCO3 (21-28) mmol/L ABG pH (7.35-7.45) ABG Total CO2 (22-28) mmol/L ABG O2 Saturation (95-98) % ABG Base Excess (-2.0-3.0) mmol/L Gregory Test ABG Potassium (3.6-5.2) mmol/L A-a O2 Difference mm/Hg Respiratory Index Glucose (75-110) mg/dl Lactate (0.7-2.1) mmol/L Liter Flow FiO2 % Crit Value Called To Crit Value Called By Crit Value Read Back Blood Gas Notified Time Sodium (132-148) mmol/L Potassium (3.6-5.2) mmol/L Chloride (98-107) mmol/L Carbon Dioxide (22-30) mmol/L Anion Gap (10-20) BUN (9-20) mg/dL Creatinine (0.8-1.5) mg/dL Est GFR ( Amer) Est GFR (Non-Af Amer) POC Glucose (mg/dL) 379 H 101 84 (65-110) mg/dL Random Glucose (75-110) mg/dL Calcium (8.6-10.4) mg/dl Phosphorus (2.5-4.5) mg/dL Magnesium (1.6-2.3) mg/dL Total Bilirubin (0.2-1.3) mg/dL AST (17-59) U/L ALT (21-72) U/L Alkaline Phosphatase (38-126) U/L Ammonia (9-33) umol/L Total Protein (6.3-8.3) g/dL Albumin (3.5-5.0) g/dL Globulin (2.2-3.9) gm/dL Albumin/Globulin Ratio (1.0-2.1) Arterial Blood Potassium (3.6-5.2) mmol/L 12/21/18 12/21/18 12/21/18 Range/Units 17:38 15:41 11:36 WBC (4.8-10.8) K/uL RBC (4.40-5.90) Mil/uL Hgb (12.0-18.0) g/dL Hct (35.0-51.0) % MCV (80.0-94.0) fL MCH (27.0-31.0) pg MCHC (33.0-37.0) g/dL RDW (11.5-14.5) % Plt Count (130-400) K/uL MPV (7.2-11.7) fL Neut % (Auto) (50.0-75.0) % Lymph % (Auto) (20.0-40.0) % [place] % (Auto) (0.0-10.0) % Eos % (Auto) (0.0-4.0) % Baso % (Auto) (0.0-2.0) % Neut # (Auto) (1.8-7.0) K/uL Lymph # (Auto) (1.0-4.3) K/uL [place] # (Auto) (0.0-0.8) K/uL Eos # (Auto) (0.0-0.7) K/uL Baso # (Auto) (0.0-0.2) K/uL Neutrophils % (Manual) (50-75) % Band Neutrophils % (0-2) % Lymphocytes % (Manual) (20-40) % Monocytes % (Manual) (0-10) % Nucleated RBC % (0-0) % Platelet Estimate (NORMAL) Poikilocytosis (manual Anisocytosis (manual) Ovalocytes Chana Cells Puncture Site pCO2 (35-45) mm/Hg pO2 (80-100) mm/Hg HCO3 (21-28) mmol/L ABG pH (7.35-7.45) ABG Total CO2 (22-28) mmol/L ABG O2 Saturation (95-98) % ABG Base Excess (-2.0-3.0) mmol/L Gregory Test ABG Potassium (3.6-5.2) mmol/L A-a O2 Difference mm/Hg Respiratory Index Glucose (75-110) mg/dl Lactate (0.7-2.1) mmol/L Liter Flow FiO2 % Crit Value Called To Crit Value Called By Crit Value Read Back Blood Gas Notified Time Sodium (132-148) mmol/L Potassium (3.6-5.2) mmol/L Chloride (98-107) mmol/L Carbon Dioxide (22-30) mmol/L Anion Gap (10-20) BUN (9-20) mg/dL Creatinine (0.8-1.5) mg/dL Est GFR ( Amer) Est GFR (Non-Af Amer) POC Glucose (mg/dL) 126 H 121 H 130 H (65-110) mg/dL Random Glucose (75-110) mg/dL Calcium (8.6-10.4) mg/dl Phosphorus (2.5-4.5) mg/dL Magnesium (1.6-2.3) mg/dL Total Bilirubin (0.2-1.3) mg/dL AST (17-59) U/L ALT (21-72) U/L Alkaline Phosphatase (38-126) U/L Ammonia (9-33) umol/L Total Protein (6.3-8.3) g/dL Albumin (3.5-5.0) g/dL Globulin (2.2-3.9) gm/dL Albumin/Globulin Ratio (1.0-2.1) Arterial Blood Potassium (3.6-5.2) mmol/L 12/21/18 Range/Units 10:42 WBC (4.8-10.8) K/uL RBC (4.40-5.90) Mil/uL Hgb (12.0-18.0) g/dL Hct (35.0-51.0) % MCV (80.0-94.0) fL MCH (27.0-31.0) pg MCHC (33.0-37.0) g/dL RDW (11.5-14.5) % Plt Count (130-400) K/uL MPV (7.2-11.7) fL Neut % (Auto) (50.0-75.0) % Lymph % (Auto) (20.0-40.0) % [place] % (Auto) (0.0-10.0) % Eos % (Auto) (0.0-4.0) % Baso % (Auto) (0.0-2.0) % Neut # (Auto) (1.8-7.0) K/uL Lymph # (Auto) (1.0-4.3) K/uL [place] # (Auto) (0.0-0.8) K/uL Eos # (Auto) (0.0-0.7) K/uL Baso # (Auto) (0.0-0.2) K/uL Neutrophils % (Manual) (50-75) % Band Neutrophils % (0-2) % Lymphocytes % (Manual) (20-40) % Monocytes % (Manual) (0-10) % Nucleated RBC % (0-0) % Platelet Estimate (NORMAL) Poikilocytosis (manual Anisocytosis (manual) Ovalocytes Chana Cells Puncture Site pCO2 (35-45) mm/Hg pO2 (80-100) mm/Hg HCO3 (21-28) mmol/L ABG pH (7.35-7.45) ABG Total CO2 (22-28) mmol/L ABG O2 Saturation (95-98) % ABG Base Excess (-2.0-3.0) mmol/L Gregory Test ABG Potassium (3.6-5.2) mmol/L A-a O2 Difference mm/Hg Respiratory Index Glucose (75-110) mg/dl Lactate (0.7-2.1) mmol/L Liter Flow FiO2 % Crit Value Called To Crit Value Called By Crit Value Read Back Blood Gas Notified Time Sodium (132-148) mmol/L Potassium (3.6-5.2) mmol/L Chloride (98-107) mmol/L Carbon Dioxide (22-30) mmol/L Anion Gap (10-20) BUN (9-20) mg/dL Creatinine (0.8-1.5) mg/dL Est GFR ( Amer) Est GFR (Non-Af Amer) POC Glucose (mg/dL) 127 H (65-110) mg/dL Random Glucose (75-110) mg/dL Calcium (8.6-10.4) mg/dl Phosphorus (2.5-4.5) mg/dL Magnesium (1.6-2.3) mg/dL Total Bilirubin (0.2-1.3) mg/dL AST (17-59) U/L ALT (21-72) U/L Alkaline Phosphatase (38-126) U/L Ammonia (9-33) umol/L Total Protein (6.3-8.3) g/dL Albumin (3.5-5.0) g/dL Globulin (2.2-3.9) gm/dL Albumin/Globulin Ratio (1.0-2.1) Arterial Blood Potassium (3.6-5.2) mmol/L Laboratory Results - last 24 hr 12/21/18 12/21/18 12/21/18 10:42 11:36 15:41 WBC RBC Hgb Hct MCV MCH MCHC RDW Plt Count MPV Neut % (Auto) Lymph % (Auto) [place] % (Auto) Eos % (Auto) Baso % (Auto) Neut # (Auto) Lymph # (Auto) [place] # (Auto) Eos # (Auto) Baso # (Auto) Neutrophils % (Manual) Band Neutrophils % Lymphocytes % (Manual) Monocytes % (Manual) Nucleated RBC % Platelet Estimate Poikilocytosis (manual Anisocytosis (manual) Ovalocytes Keira Cells Puncture Site pCO2 pO2 HCO3 ABG pH ABG Total CO2 ABG O2 Saturation ABG Base Excess Gregory Test ABG Potassium A-a O2 Difference Respiratory Index Glucose Lactate Liter Flow FiO2 Crit Value Called To Crit Value Called By Crit Value Read Back Blood Gas Notified Time Sodium Potassium Chloride Carbon Dioxide Anion Gap BUN Creatinine Est GFR ( Amer) Est GFR (Non-Af Amer) POC Glucose (mg/dL) 127 H 130 H 121 H Random Glucose Calcium Phosphorus Magnesium Total Bilirubin AST ALT Alkaline Phosphatase Ammonia Total Protein Albumin Globulin Albumin/Globulin Ratio Arterial Blood Potassium 12/21/18 12/21/18 12/21/18 17:38 20:37 22:01 WBC RBC Hgb Hct MCV MCH MCHC RDW Plt Count MPV Neut % (Auto) Lymph % (Auto) [place] % (Auto) Eos % (Auto) Baso % (Auto) Neut # (Auto) Lymph # (Auto) [place] # (Auto) Eos # (Auto) Baso # (Auto) Neutrophils % (Manual) Band Neutrophils % Lymphocytes % (Manual) Monocytes % (Manual) Nucleated RBC % Platelet Estimate Poikilocytosis (manual Anisocytosis (manual) Ovalocytes Chana Cells Puncture Site pCO2 pO2 HCO3 ABG pH ABG Total CO2 ABG O2 Saturation ABG Base Excess Gregory Test ABG Potassium A-a O2 Difference Respiratory Index Glucose Lactate Liter Flow FiO2 Crit Value Called To Crit Value Called By Crit Value Read Back Blood Gas Notified Time Sodium Potassium Chloride Carbon Dioxide Anion Gap BUN Creatinine Est GFR ( Amer) Est GFR (Non-Af Amer) POC Glucose (mg/dL) 126 H 84 101 Random Glucose Calcium Phosphorus Magnesium Total Bilirubin AST ALT Alkaline Phosphatase Ammonia Total Protein Albumin Globulin Albumin/Globulin Ratio Arterial Blood Potassium 12/21/18 12/22/18 12/22/18 23:45 04:58 17:56 WBC RBC Hgb Hct MCV MCH MCHC RDW Plt Count MPV Neut % (Auto) Lymph % (Auto) [place] % (Auto) Eos % (Auto) Baso % (Auto) Neut # (Auto) Lymph # (Auto) [place] # (Auto) Eos # (Auto) Baso # (Auto) Neutrophils % (Manual) Band Neutrophils % Lymphocytes % (Manual) Monocytes % (Manual) Nucleated RBC % Platelet Estimate Poikilocytosis (manual Anisocytosis (manual) Ovalocytes Keira Cells Puncture Site pCO2 pO2 HCO3 ABG pH ABG Total CO2 ABG O2 Saturation ABG Base Excess Gregory Test ABG Potassium A-a O2 Difference Respiratory Index Glucose Lactate Liter Flow FiO2 Crit Value Called To Crit Value Called By Crit Value Read Back Blood Gas Notified Time Sodium Potassium Chloride Carbon Dioxide Anion Gap BUN Creatinine Est GFR ( Amer) Est GFR (Non-Af Amer) POC Glucose (mg/dL) 379 H 122 H 98 Random Glucose Calcium Phosphorus Magnesium Total Bilirubin AST ALT Alkaline Phosphatase Ammonia Total Protein Albumin Globulin Albumin/Globulin Ratio Arterial Blood Potassium 12/22/18 12/22/18 12/23/18 23:37 23:39 02:43 WBC RBC Hgb Hct MCV MCH MCHC RDW Plt Count MPV Neut % (Auto) Lymph % (Auto) [place] % (Auto) Eos % (Auto) Baso % (Auto) Neut # (Auto) Lymph # (Auto) [place] # (Auto) Eos # (Auto) Baso # (Auto) Neutrophils % (Manual) Band Neutrophils % Lymphocytes % (Manual) Monocytes % (Manual) Nucleated RBC % Platelet Estimate Poikilocytosis (manual Anisocytosis (manual) Ovalocytes Keira Cells Puncture Site pCO2 pO2 HCO3 ABG pH ABG Total CO2 ABG O2 Saturation ABG Base Excess Gregory Test ABG Potassium A-a O2 Difference Respiratory Index Glucose Lactate Liter Flow FiO2 Crit Value Called To Crit Value Called By Crit Value Read Back Blood Gas Notified Time Sodium Potassium Chloride Carbon Dioxide Anion Gap BUN Creatinine Est GFR ( Amer) Est GFR (Non-Af Amer) POC Glucose (mg/dL) 35 L* 136 H 131 H Random Glucose Calcium Phosphorus Magnesium Total Bilirubin AST ALT Alkaline Phosphatase Ammonia Total Protein Albumin Globulin Albumin/Globulin Ratio Arterial Blood Potassium 12/23/18 12/23/18 12/23/18 05:25 11:33 11:36 WBC RBC Hgb Hct MCV MCH MCHC RDW Plt Count MPV Neut % (Auto) Lymph % (Auto) [place] % (Auto) Eos % (Auto) Baso % (Auto) Neut # (Auto) Lymph # (Auto) [place] # (Auto) Eos # (Auto) Baso # (Auto) Neutrophils % (Manual) Band Neutrophils % Lymphocytes % (Manual) Monocytes % (Manual) Nucleated RBC % Platelet Estimate Poikilocytosis (manual Anisocytosis (manual) Ovalocytes Keira Cells Puncture Site pCO2 pO2 HCO3 ABG pH ABG Total CO2 ABG O2 Saturation ABG Base Excess Gregory Test ABG Potassium A-a O2 Difference Respiratory Index Glucose Lactate Liter Flow FiO2 Crit Value Called To Crit Value Called By Crit Value Read Back Blood Gas Notified Time Sodium Potassium Chloride Carbon Dioxide Anion Gap BUN Creatinine Est GFR ( Amer) Est GFR (Non-Af Amer) POC Glucose (mg/dL) 123 H < 20 L* 107 Random Glucose Calcium Phosphorus Magnesium Total Bilirubin AST ALT Alkaline Phosphatase Ammonia Total Protein Albumin Globulin Albumin/Globulin Ratio Arterial Blood Potassium 12/23/18 12/23/18 12/23/18 17:31 17:33 23:42 WBC RBC Hgb Hct MCV MCH MCHC RDW Plt Count MPV Neut % (Auto) Lymph % (Auto) [place] % (Auto) Eos % (Auto) Baso % (Auto) Neut # (Auto) Lymph # (Auto) [place] # (Auto) Eos # (Auto) Baso # (Auto) Neutrophils % (Manual) Band Neutrophils % Lymphocytes % (Manual) Monocytes % (Manual) Nucleated RBC % Platelet Estimate Poikilocytosis (manual Anisocytosis (manual) Ovalocytes Keira Cells Puncture Site pCO2 pO2 HCO3 ABG pH ABG Total CO2 ABG O2 Saturation ABG Base Excess Gregory Test ABG Potassium A-a O2 Difference Respiratory Index Glucose Lactate Liter Flow FiO2 Crit Value Called To Crit Value Called By Crit Value Read Back Blood Gas Notified Time Sodium Potassium Chloride Carbon Dioxide Anion Gap BUN Creatinine Est GFR ( Amer) Est GFR (Non-Af Amer) POC Glucose (mg/dL) 67 106 71 Random Glucose Calcium Phosphorus Magnesium Total Bilirubin AST ALT Alkaline Phosphatase Ammonia Total Protein Albumin Globulin Albumin/Globulin Ratio Arterial Blood Potassium 04/15/19 04/15/19 04/15/19 06:06 11:19 18:22 WBC RBC Hgb Hct MCV MCH MCHC RDW Plt Count MPV Neut % (Auto) Lymph % (Auto) [place] % (Auto) Eos % (Auto) Baso % (Auto) Neut # (Auto) Lymph # (Auto) [place] # (Auto) Eos # (Auto) Baso # (Auto) Neutrophils % (Manual) Band Neutrophils % Lymphocytes % (Manual) Monocytes % (Manual) Nucleated RBC % Platelet Estimate Poikilocytosis (manual Anisocytosis (manual) Ovalocytes Keira Cells Puncture Site pCO2 pO2 HCO3 ABG pH ABG Total CO2 ABG O2 Saturation ABG Base Excess Gregory Test ABG Potassium A-a O2 Difference Respiratory Index Glucose Lactate Liter Flow FiO2 Crit Value Called To Crit Value Called By Crit Value Read Back Blood Gas Notified Time Sodium Potassium Chloride Carbon Dioxide Anion Gap BUN Creatinine Est GFR ( Amer) Est GFR (Non-Af Amer) POC Glucose (mg/dL) 81 77 37 L* Random Glucose Calcium Phosphorus Magnesium Total Bilirubin AST ALT Alkaline Phosphatase Ammonia Total Protein Albumin Globulin Albumin/Globulin Ratio Arterial Blood Potassium 12/24/18 12/24/18 12/24/18 18:24 18:46 18:49 WBC RBC Hgb Hct MCV MCH MCHC RDW Plt Count MPV Neut % (Auto) Lymph % (Auto) [place] % (Auto) Eos % (Auto) Baso % (Auto) Neut # (Auto) Lymph # (Auto) [place] # (Auto) Eos # (Auto) Baso # (Auto) Neutrophils % (Manual) Band Neutrophils % Lymphocytes % (Manual) Monocytes % (Manual) Nucleated RBC % Platelet Estimate Poikilocytosis (manual Anisocytosis (manual) Ovalocytes Chana Cells Puncture Site pCO2 pO2 HCO3 ABG pH ABG Total CO2 ABG O2 Saturation ABG Base Excess Gregory Test ABG Potassium A-a O2 Difference Respiratory Index Glucose Lactate Liter Flow FiO2 Crit Value Called To Crit Value Called By Crit Value Read Back Blood Gas Notified Time Sodium Potassium Chloride Carbon Dioxide Anion Gap BUN Creatinine Est GFR ( Amer) Est GFR (Non-Af Amer) POC Glucose (mg/dL) 36 L* 36 L* 410 H* Random Glucose Calcium Phosphorus Magnesium Total Bilirubin AST ALT Alkaline Phosphatase Ammonia Total Protein Albumin Globulin Albumin/Globulin Ratio Arterial Blood Potassium 04/15/19 04/15/19 04/16/19 22:28 22:40 00:06 WBC RBC Hgb Hct MCV MCH MCHC RDW Plt Count MPV Neut % (Auto) Lymph % (Auto) [place] % (Auto) Eos % (Auto) Baso % (Auto) Neut # (Auto) Lymph # (Auto) [place] # (Auto) Eos # (Auto) Baso # (Auto) Neutrophils % (Manual) Band Neutrophils % Lymphocytes % (Manual) Monocytes % (Manual) Nucleated RBC % Platelet Estimate Poikilocytosis (manual Anisocytosis (manual) Ovalocytes Chana Cells Puncture Site pCO2 pO2 HCO3 ABG pH ABG Total CO2 ABG O2 Saturation ABG Base Excess Gregory Test ABG Potassium A-a O2 Difference Respiratory Index Glucose Lactate Liter Flow FiO2 Crit Value Called To Crit Value Called By Crit Value Read Back Blood Gas Notified Time Sodium 137 Potassium 4.7 Chloride 98 Carbon Dioxide 14 L Anion Gap 29 H BUN 49 H Creatinine 3.8 H Est GFR ( Amer) 19 Est GFR (Non-Af Amer) 16 POC Glucose (mg/dL) 25 L* Random Glucose 92 D Calcium 6.9 L Phosphorus Magnesium Total Bilirubin 8.0 H AST 1063 H ALT 209 H Alkaline Phosphatase 532 H Ammonia < 9 L D Total Protein 5.8 L Albumin 3.3 L Globulin 2.5 Albumin/Globulin Ratio 1.3 Arterial Blood Potassium 12/25/18 12/25/18 12/25/18 00:08 06:13 06:13 WBC 9.1 RBC 2.76 L Hgb 9.0 L Hct 27.2 L MCV 98.7 H MCH 32.6 H MCHC 33.0 RDW 20.8 H Plt Count 44 L MPV 10.4 Neut % (Auto) 91.0 H Lymph % (Auto) 8.0 L [place] % (Auto) 1.0 Eos % (Auto) 0.0 Baso % (Auto) 0.0 Neut # (Auto) 8.3 H Lymph # (Auto) 0.7 L [place] # (Auto) 0.1 Eos # (Auto) 0.0 Baso # (Auto) 0.0 Neutrophils % (Manual) 84 H Band Neutrophils % 9 H Lymphocytes % (Manual) 4 L Monocytes % (Manual) 3 Nucleated RBC % 1 H Platelet Estimate Decreased L Poikilocytosis (manual Slight Anisocytosis (manual) Moderate Ovalocytes Slight Keiar Cells Slight Puncture Site pCO2 pO2 HCO3 ABG pH ABG Total CO2 ABG O2 Saturation ABG Base Excess Gregory Test ABG Potassium A-a O2 Difference Respiratory Index Glucose Lactate Liter Flow FiO2 Crit Value Called To Crit Value Called By Crit Value Read Back Blood Gas Notified Time Sodium 138 Potassium 4.9 Chloride 99 Carbon Dioxide 13 L Anion Gap 30 H BUN 52 H Creatinine 4.1 H Est GFR ( Amer) 17 Est GFR (Non-Af Amer) 14 POC Glucose (mg/dL) 75 Random Glucose 57 L D Calcium 7.0 L Phosphorus 4.1 Magnesium 2.3 Total Bilirubin 8.3 H AST 1144 H ALT 205 H Alkaline Phosphatase 572 H Ammonia Total Protein 5.8 L Albumin 3.4 L Globulin 2.4 Albumin/Globulin Ratio 1.4 Arterial Blood Potassium 12/25/18 12/25/18 12/25/18 06:27 06:30 07:10 WBC RBC Hgb Hct MCV MCH MCHC RDW Plt Count MPV Neut % (Auto) Lymph % (Auto) [place] % (Auto) Eos % (Auto) Baso % (Auto) Neut # (Auto) Lymph # (Auto) [place] # (Auto) Eos # (Auto) Baso # (Auto) Neutrophils % (Manual) Band Neutrophils % Lymphocytes % (Manual) Monocytes % (Manual) Nucleated RBC % Platelet Estimate Poikilocytosis (manual Anisocytosis (manual) Ovalocytes Chana Cells Puncture Site pCO2 pO2 HCO3 ABG pH ABG Total CO2 ABG O2 Saturation ABG Base Excess Gregory Test ABG Potassium A-a O2 Difference Respiratory Index Glucose Lactate Liter Flow FiO2 Crit Value Called To Crit Value Called By Crit Value Read Back Blood Gas Notified Time Sodium Potassium Chloride Carbon Dioxide Anion Gap BUN Creatinine Est GFR ( Amer) Est GFR (Non-Af Amer) POC Glucose (mg/dL) 64 L 56 L 100 Random Glucose Calcium Phosphorus Magnesium Total Bilirubin AST ALT Alkaline Phosphatase Ammonia Total Protein Albumin Globulin Albumin/Globulin Ratio Arterial Blood Potassium 12/25/18 08:55 WBC RBC Hgb Hct MCV MCH MCHC RDW Plt Count MPV Neut % (Auto) Lymph % (Auto) [place] % (Auto) Eos % (Auto) Baso % (Auto) Neut # (Auto) Lymph # (Auto) [place] # (Auto) Eos # (Auto) Baso # (Auto) Neutrophils % (Manual) Band Neutrophils % Lymphocytes % (Manual) Monocytes % (Manual) Nucleated RBC % Platelet Estimate Poikilocytosis (manual Anisocytosis (manual) Ovalocytes Keira Cells Puncture Site [place] pCO2 17 L* pO2 99 HCO3 14.9 L ABG pH 7.37 ABG Total CO2 10.3 L ABG O2 Saturation 99.8 H ABG Base Excess -12.8 L Gregory Test Na ABG Potassium 4.6 A-a O2 Difference 136.0 Respiratory Index 1.4 Glucose 95 Lactate 11.5 H* Liter Flow 4.0 FiO2 36.0 Crit Value Called To Safia alexis Crit Value Called By [facility] Crit Value Read Back Y Blood Gas Notified Time 900 Sodium 139.0 Potassium Chloride 102.0 Carbon Dioxide Anion Gap BUN Creatinine Est GFR ( Amer) Est GFR (Non-Af Amer) POC Glucose (mg/dL) Random Glucose Calcium Phosphorus Magnesium Total Bilirubin AST ALT Alkaline Phosphatase Ammonia Total Protein Albumin Globulin Albumin/Globulin Ratio Arterial Blood Potassium 4.6 Radiology Impressions: Radiology Impressions Abdomen Ultrasound 12/24/18 11:05 IMPRESSION: Hepatomegaly. No focal hepatic masses. Redemonstration of right upper quadrant ascites. Gallstones/sludge. No evidence of gallbladder wall thickening or sonographic Cortez's sign. Chest X-Ray 12/25/18 11:44 IMPRESSION: Appears to be mild pulmonary venous congestive changes. Cardiomegaly. Diffuse blastic metastases. Critical Care Progress Note - Nutrition Nutrition: Nutrition Category Date Time Status Heart Healthy Diet [DIET] Diets 12/24/18 Lunch Active Assessment/Plan (1) Respiratory insufficiency Current Visit: Yes Status: Acute (2) MAHIN (acute kidney injury) Current Visit: Yes Status: Acute (3) Anemia Current Visit: Yes Status: Acute (4) Opiate overdose Current Visit: Yes Status: Acute (5) UTI (urinary tract infection) Current Visit: Yes Status: Acute (6) Acute exacerbation of CHF (congestive heart failure) Current Visit: No Status: Acute Attending/Attestation - Attestation I have personally seen and examined this patient.: Yes I have fully participated in the care of the patient.: Yes I have reviewed all pertinent clinical information: Yes Notes (Text): 12/25/18 16:31 Patient seen and examined in the intensive care unit. Case discussed with housestaff in the morning rounds. Getting hemodialysis On dopamine Patient lethargic and does not follow commands Continue antibiotics NG tube feeding Prognosis poor
[2018-12-25] MEDS ORDERED: Gentamicin 160 MG in Sodium Chloride 0.9% 100 ML IVPB ONE (14:00)
--- NOTE | 2018-12-25 15:12 | RAD ---
Date of service: 12/25/2018 HISTORY: r/o CHF COMPARISON: Comparison made with chest radiograph 12/24/2018. TECHNIQUE: 1 view obtained. FINDINGS: No change right IJ central line with tip in the SVC. 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 PLEURA: No significant pleural effusion identified, no pneumothorax apparent. CARDIOVASCULAR: Minimal aortic atherosclerotic calcification present. Cardiomegaly.. No pulmonary vascular congestion. OSSEOUS STRUCTURES: No significant abnormalities. VISUALIZED UPPER ABDOMEN: Normal. OTHER FINDINGS: None. IMPRESSION: Appears to be mild pulmonary venous congestive changes. Cardiomegaly. Diffuse blastic metastases.
--- NOTE | 2018-12-25 15:24 | CP.PCM.PN ---
Subjective - Date & Time of Evaluation Date of Evaluation: 12/25/18 Time of Evaluation: 15:21 - Subjective Subjective: Pulm Progress Note for Dr. Gardner's service S/E at bedside Remains somolent Responds minimal can follow simple commands Objective - Vital Signs/Intake and Output Vital Signs (last 24 hours): Temp Pulse Resp BP Pulse Ox 97.6 F 111 H 17 95/66 L 91 L 12/25/18 13:40 12/25/18 15:04 12/25/18 15:04 12/25/18 15:04 12/25/18 15:04 Intake and Output: 12/25/18 12/25/18 06:59 18:59 Intake Total 385.4 281.3 Output Total 0 Balance 385.4 281.3 - Medications Medications: Current Medications Dextrose (Dextrose 50% Inj) 0 ml IV STAT PRN; Protocol PRN Reason: Hypoglycemia Protocol Last Admin: 12/25/18 06:42 Dose: 50 ml Dextrose (Glutose 15) 0 gm PO ONCE PRN; Protocol PRN Reason: Hypoglycemia Protocol Glucagon (Glucagen Diagnostic Kit) 0 mg IM STAT PRN; Protocol PRN Reason: Hypoglycemia Protocol Home Med (Patient's Own Medication) 1 tab PO DAILY [facility] Last Admin: 12/25/18 10:47 Dose: 1 tab Hydrocortisone Sodium Succinate (Solu-Cortef) 100 mg IV Q8H [facility] Last Admin: 12/25/18 10:47 Dose: 100 mg Cefepime HCl (Maxipime Iv 1 Gm Premix) 1 gm in 50 mls @ 100 mls/hr IVPB Q24H [facility]; Protocol Last Admin: 12/24/18 17:04 Dose: 100 mls/hr Vasopressin 40 units/ Dextrose 42 mls @ 0.63 mls/hr IV .Q24H [facility]; Protocol Last Admin: 12/25/18 05:21 Dose: Not Given Dopamine HCl/Dextrose (Dopamine 400mg/250ml D5w) 400 mg in 250 mls @ 5.239 mls/hr IV .Q24H PRN; Protocol PRN Reason: TITRATE PER MD ORDER Last Titration: 12/25/18 13:15 Dose: 2.93 mcg/kg/min, 7.675 mls/hr Levothyroxine Sodium (Synthroid) 50 mcg PO DAILY@0630 [facility] Last Admin: 12/25/18 06:38 Dose: 50 mcg Pantoprazole Sodium (Protonix Inj) 40 mg IVP Q12H [facility] Last Admin: 12/25/18 10:46 Dose: 40 mg Rosuvastatin Calcium (Crestor) 5 mg PO HS [facility] Last Admin: 12/24/18 21:35 Dose: 5 mg Sodium Bicarbonate (Sodium Bicarbonate Tab) 1,300 mg PO Q6 [facility] Last Admin: 12/22/18 19:04 Dose: 1,300 mg Sodium Bicarbonate (Sodium Bicarbonate 8.4% (50 Meq) Vial) 50 meq IVP Q4H [facility] Last Admin: 12/22/18 20:46 Dose: 50 meq Tamsulosin HCl (Flomax) 0.4 mg PO DAILY [facility] Last Admin: 12/25/18 10:47 Dose: 0.4 mg - Labs Labs: 12/25/18 06:13 12/25/18 06:13 PT 23.5 SECONDS (9.7-12.2) H 12/24/18 08:11 INR 2.1 12/24/18 08:11 APTT 35 SECONDS (21-34) H 12/24/18 08:11 - Constitutional Appears: Non-toxic, No Acute Distress, Confused - Head Exam Head Exam: NORMAL INSPECTION - Eye Exam Eye Exam: EOMI - ENT Exam ENT Exam: Mucous Membranes Dry - Respiratory Exam Respiratory Exam: Clear to Ausculation Bilateral, NORMAL BREATHING PATTERN - Cardiovascular Exam Cardiovascular Exam: Tachycardia, REGULAR RHYTHM, +S1, +S2 - GI/Abdominal Exam GI & Abdominal Exam: Soft, Normal Bowel Sounds. absent: Guarding, Rigid, Tenderness - Neurological Exam Neurological Exam: Awake. 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
--- NOTE | 2018-12-25 15:41 | CARD ---
APPROVED REPORT Date of service: 12/21/2018 EKG Measurement Heart [id number] <Conclusion> Suspect arm lead reversal, interpretation assumes no reversal Undetermined rhythm Low voltage QRS Borderline ECG
--- NOTE | 2018-12-25 15:52 | CARD ---
APPROVED REPORT Date of service: 12/21/2018 EKG Measurement Heart [id number] <Conclusion> Undetermined rhythm Left axis deviation Low voltage QRS Inferior infarct, age undetermined Anterolateral infarct, age undetermined Abnormal ECG
[2018-12-25] MEDS: Cefepime IV 1 gm in Dextrose 1 GM/50 ML BAG IVPB SCH (17:33)
--- NOTE | 2018-12-25 22:48 | CP.PCM.PN ---
Subjective - Date & Time of Evaluation Date of Evaluation: 12/25/18 Time of Evaluation: 12:50 - Subjective Subjective: dictated Objective - Vital Signs/Intake and Output Vital Signs (last 24 hours): Temp Pulse Resp BP Pulse Ox 97.4 F L 103 H 16 96/48 L 95 12/25/18 20:00 12/25/18 22:03 12/25/18 22:03 12/25/18 22:03 12/25/18 22:03 Intake and Output: 12/25/18 12/26/18 18:59 06:59 Intake Total 464.4 119.1 Balance 464.4 119.1 - Medications Medications: Current Medications Dextrose (Dextrose 50% Inj) 0 ml IV STAT PRN; Protocol PRN Reason: Hypoglycemia Protocol Last Admin: 12/25/18 06:42 Dose: 50 ml Dextrose (Glutose 15) 0 gm PO ONCE PRN; Protocol PRN Reason: Hypoglycemia Protocol Glucagon (Glucagen Diagnostic Kit) 0 mg IM STAT PRN; Protocol PRN Reason: Hypoglycemia Protocol Home Med (Patient's Own Medication) 1 tab PO DAILY [facility] Last Admin: 12/25/18 10:47 Dose: 1 tab Hydrocortisone Sodium Succinate (Solu-Cortef) 100 mg IV Q8H [facility] Last Admin: 12/25/18 17:33 Dose: 100 mg Cefepime HCl (Maxipime Iv 1 Gm Premix) 1 gm in 50 mls @ 100 mls/hr IVPB Q24H [facility]; Protocol Last Admin: 12/25/18 17:33 Dose: 100 mls/hr Vasopressin 40 units/ Dextrose 42 mls @ 0.63 mls/hr IV .Q24H [facility]; Protocol Last Admin: 12/25/18 05:21 Dose: Not Given Dopamine HCl/Dextrose (Dopamine 400mg/250ml D5w) 400 mg in 250 mls @ 5.239 mls/hr IV .Q24H PRN; Protocol PRN Reason: TITRATE PER MD ORDER Last Admin: 12/25/18 22:03 Dose: 2.93 mcg/kg/min, 7.675 mls/hr Levothyroxine Sodium (Synthroid) 50 mcg PO DAILY@0630 [facility] Last Admin: 12/25/18 06:38 Dose: 50 mcg Pantoprazole Sodium (Protonix Inj) 40 mg IVP Q12H [facility] Last Admin: 12/25/18 20:50 Dose: 40 mg Rosuvastatin Calcium (Crestor) 5 mg PO HS [facility] Last Admin: 12/24/18 21:35 Dose: 5 mg Sodium Bicarbonate (Sodium Bicarbonate Tab) 1,300 mg PO Q6 [facility] Last Admin: 12/22/18 19:04 Dose: 1,300 mg Sodium Bicarbonate (Sodium Bicarbonate 8.4% (50 Meq) Vial) 50 meq IVP Q4H [facility] Last Admin: 12/22/18 20:46 Dose: 50 meq Tamsulosin HCl (Flomax) 0.4 mg PO DAILY [facility] Last Admin: 12/25/18 10:47 Dose: 0.4 mg - Labs Labs: 12/25/18 06:13 12/25/18 06:13 PT 23.5 SECONDS (9.7-12.2) H 12/24/18 08:11 INR 2.1 12/24/18 08:11 APTT 35 SECONDS (21-34) H 12/24/18 08:11
--- NOTE | 2018-12-25 23:45 | CP.PCM.PN ---
Subjective - Date & Time of Evaluation Date of Evaluation: 12/24/18 Time of Evaluation: 18:25 - Subjective Subjective: patient seen and evaluate Poor mental status Objective - Vital Signs/Intake and Output Vital Signs (last 24 hours): Temp Pulse Resp BP Pulse Ox 95.4 F L 134 H 26 H 99/56 L 89 L 12/24/18 08:00 12/24/18 10:00 12/24/18 10:00 12/24/18 09:55 12/24/18 04:00 Intake and Output: 12/24/18 12/24/18 06:59 18:59 Intake Total 444 48 Output Total 10 17 Balance 434 31 - Medications Medications: Current Medications Dextrose (Dextrose 50% Inj) 0 ml IV STAT PRN; Protocol PRN Reason: Hypoglycemia Protocol Dextrose (Glutose 15) 0 gm PO ONCE PRN; Protocol PRN Reason: Hypoglycemia Protocol Glucagon (Glucagen Diagnostic Kit) 0 mg IM STAT PRN; Protocol PRN Reason: Hypoglycemia Protocol Home Med (Patient's Own Medication) 1 tab PO DAILY [facility] Last Admin: 12/24/18 09:56 Dose: 1 tab Hydrocortisone Sodium Succinate (Solu-Cortef) 100 mg IV Q8H [facility] Last Admin: 12/24/18 09:55 Dose: 100 mg Cefepime HCl (Maxipime Iv 1 Gm Premix) 1 gm in 50 mls @ 100 mls/hr IVPB Q24H [facility]; Protocol Last Admin: 12/23/18 17:41 Dose: 100 mls/hr Vasopressin 40 units/ Dextrose 42 mls @ 0.63 mls/hr IV .Q24H [facility]; Protocol Last Admin: 12/24/18 05:41 Dose: Not Given Dopamine HCl/Dextrose (Dopamine 400mg/250ml D5w) 400 mg in 250 mls @ 17.929 mls/hr IV .[id number] PRN; Protocol PRN Reason: TITRATE PER MD ORDER Last Admin: 12/24/18 01:33 Dose: 4.68 mcg/kg/min, 12 mls/hr Levothyroxine Sodium (Synthroid) 50 mcg PO DAILY@0630 [facility] Last Admin: 12/24/18 06:31 Dose: 50 mcg Pantoprazole Sodium (Protonix Inj) 40 mg IVP Q12H [facility] Last Admin: 12/24/18 09:55 Dose: 40 mg Rosuvastatin Calcium (Crestor) 5 mg PO HS [facility] Last Admin: 12/23/18 21:27 Dose: 5 mg Sodium Bicarbonate (Sodium Bicarbonate Tab) 1,300 mg PO Q6 [facility] Last Admin: 12/22/18 19:04 Dose: 1,300 mg Sodium Bicarbonate (Sodium Bicarbonate 8.4% (50 Meq) Vial) 50 meq IVP Q4H [facility] Last Admin: 12/22/18 20:46 Dose: 50 meq Tamsulosin HCl (Flomax) 0.4 mg PO DAILY [facility] Last Admin: 12/24/18 09:56 Dose: 0.4 mg - Labs Labs: 12/24/18 06:12 12/24/18 06:12 PT 23.5 SECONDS (9.7-12.2) H 12/24/18 08:11 INR 2.1 12/24/18 08:11 APTT 35 SECONDS (21-34) H 12/24/18 08:11 - Constitutional Appears: Non-toxic, No Acute Distress, Chronically Ill - Eye Exam Eye Exam: EOMI - ENT Exam ENT Exam: Mucous Membranes Dry - Respiratory Exam Respiratory Exam: Clear to Ausculation Bilateral, NORMAL BREATHING PATTERN. absent: Rhonchi, Wheezes - Cardiovascular Exam Cardiovascular Exam: REGULAR RHYTHM, +S1, +S2 - GI/Abdominal Exam GI & Abdominal Exam: Soft, Normal Bowel Sounds. absent: Tenderness - Extremities Exam Extremities Exam: Normal Inspection. absent: Pedal Edema - Neurological Exam Neurological Exam: Awake. 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 Plan: A: Opiate Overdose Septic Shock MAHIN Hypotension Advanced prostate cancer with mets Hypothyroidism HFeRF Liver Cirrhosis P: HD as per nephro Vasopressors as per ICU IV abx as per ICU Bicarb drip as needed to correct acidosis LT4 Crestor 5 Hydrocortisone Flomax Patient prognosis very poor with advanced cancer w/mets. Patient also suffering from ATN likely due to opiate overdose requiring urgent dialysis. continue bp support as needed as per icu. Continue IV abx as per ID Objective - Vital Signs/Intake and Output Vital Signs (last 24 hours): Temp Pulse Resp BP Pulse Ox 97.4 F L 103 H 16 96/48 L 95 12/25/18 20:00 12/25/18 22:03 12/25/18 22:03 12/25/18 22:03 12/25/18 22:03 Intake and Output: 12/25/18 12/26/18 18:59 06:59 Intake Total 464.4 119.1 Balance 464.4 119.1 - Medications Medications: Current Medications Dextrose (Dextrose 50% Inj) 0 ml IV STAT PRN; Protocol PRN Reason: Hypoglycemia Protocol Last Admin: 12/25/18 06:42 Dose: 50 ml Dextrose (Glutose 15) 0 gm PO ONCE PRN; Protocol PRN Reason: Hypoglycemia Protocol Glucagon (Glucagen Diagnostic Kit) 0 mg IM STAT PRN; Protocol PRN Reason: Hypoglycemia Protocol Home Med (Patient's Own Medication) 1 tab PO DAILY [facility] Last Admin: 12/25/18 10:47 Dose: 1 tab Hydrocortisone Sodium Succinate (Solu-Cortef) 100 mg IV Q8H [facility] Last Admin: 12/25/18 17:33 Dose: 100 mg Cefepime HCl (Maxipime Iv 1 Gm Premix) 1 gm in 50 mls @ 100 mls/hr IVPB Q24H [facility]; Protocol Last Admin: 12/25/18 17:33 Dose: 100 mls/hr Vasopressin 40 units/ Dextrose 42 mls @ 0.63 mls/hr IV .Q24H [facility]; Protocol Last Admin: 12/25/18 05:21 Dose: Not Given Dopamine HCl/Dextrose (Dopamine 400mg/250ml D5w) 400 mg in 250 mls @ 5.239 mls/hr IV .Q24H PRN; Protocol PRN Reason: TITRATE PER MD ORDER Last Admin: 12/25/18 22:03 Dose: 2.93 mcg/kg/min, 7.675 mls/hr Levothyroxine Sodium (Synthroid) 50 mcg PO DAILY@0630 [facility] Last Admin: 12/25/18 06:38 Dose: 50 mcg Pantoprazole Sodium (Protonix Inj) 40 mg IVP Q12H [facility] Last Admin: 12/25/18 20:50 Dose: 40 mg Rosuvastatin Calcium (Crestor) 5 mg PO HS [facility] Last Admin: 12/24/18 21:35 Dose: 5 mg Sodium Bicarbonate (Sodium Bicarbonate Tab) 1,300 mg PO Q6 [facility] Last Admin: 12/22/18 19:04 Dose: 1,300 mg Sodium Bicarbonate (Sodium Bicarbonate 8.4% (50 Meq) Vial) 50 meq IVP Q4H [facility] Last Admin: 12/22/18 20:46 Dose: 50 meq Tamsulosin HCl (Flomax) 0.4 mg PO DAILY [facility] Last Admin: 12/25/18 10:47 Dose: 0.4 mg - Labs Labs: 12/25/18 06:13 12/25/18 06:13 PT 23.5 SECONDS (9.7-12.2) H 12/24/18 08:11 INR 2.1 12/24/18 08:11 APTT 35 SECONDS (21-34) H 12/24/18 08:11
--- NOTE | 2018-12-25 23:46 | CP.PCM.PN ---
Subjective - Date & Time of Evaluation Date of Evaluation: 12/25/18 Time of Evaluation: 10:10 - Subjective Subjective: patient seen and evaluated not in distress Objective - Constitutional Appears: Non-toxic, No Acute Distress, Chronically Ill - Eye Exam Eye Exam: EOMI - ENT Exam ENT Exam: Mucous Membranes Dry - Respiratory Exam Respiratory Exam: Clear to Ausculation Bilateral, NORMAL BREATHING PATTERN. absent: Rhonchi, Wheezes - Cardiovascular Exam Cardiovascular Exam: REGULAR RHYTHM, +S1, +S2 - GI/Abdominal Exam GI & Abdominal Exam: Soft, Normal Bowel Sounds. absent: Tenderness - Extremities Exam Extremities Exam: Normal Inspection. absent: Pedal Edema - Neurological Exam Neurological Exam: Awake. 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 Plan: A: Opiate Overdose Septic Shock MAHIN Hypotension Advanced prostate cancer with mets Hypothyroidism HFeRF Liver Cirrhosis P: HD as per nephro Vasopressors as per ICU IV abx as per ICU Bicarb drip as needed to correct acidosis LT4 Crestor 5 Hydrocortisone Flomax Patient prognosis very poor with advanced cancer w/mets. Patient also suffering from ATN likely due to opiate overdose requiring urgent dialysis. continue bp support as needed as per icu. Continue IV abx as per ID Objective - Vital Signs/Intake and Output Vital Signs (last 24 hours): Temp Pulse Resp BP Pulse Ox 97.4 F L 103 H 16 96/48 L 95 12/25/18 20:00 12/25/18 22:03 12/25/18 22:03 12/25/18 22:03 12/25/18 22:03 Intake and Output: 12/25/18 12/26/18 18:59 06:59 Intake Total 464.4 119.1 Balance 464.4 119.1 - Medications Medications: Current Medications Dextrose (Dextrose 50% Inj) 0 ml IV STAT PRN; Protocol PRN Reason: Hypoglycemia Protocol Last Admin: 12/25/18 06:42 Dose: 50 ml Dextrose (Glutose 15) 0 gm PO ONCE PRN; Protocol PRN Reason: Hypoglycemia Protocol Glucagon (Glucagen Diagnostic Kit) 0 mg IM STAT PRN; Protocol PRN Reason: Hypoglycemia Protocol Home Med (Patient's Own Medication) 1 tab PO DAILY [facility] Last Admin: 12/25/18 10:47 Dose: 1 tab Hydrocortisone Sodium Succinate (Solu-Cortef) 100 mg IV Q8H [facility] Last Admin: 12/25/18 17:33 Dose: 100 mg Cefepime HCl (Maxipime Iv 1 Gm Premix) 1 gm in 50 mls @ 100 mls/hr IVPB Q24H [facility]; Protocol Last Admin: 12/25/18 17:33 Dose: 100 mls/hr Vasopressin 40 units/ Dextrose 42 mls @ 0.63 mls/hr IV .Q24H [facility]; Protocol Last Admin: 12/25/18 05:21 Dose: Not Given Dopamine HCl/Dextrose (Dopamine 400mg/250ml D5w) 400 mg in 250 mls @ 5.239 mls/hr IV .Q24H PRN; Protocol PRN Reason: TITRATE PER MD ORDER Last Admin: 12/25/18 22:03 Dose: 2.93 mcg/kg/min, 7.675 mls/hr Levothyroxine Sodium (Synthroid) 50 mcg PO DAILY@0630 [facility] Last Admin: 12/25/18 06:38 Dose: 50 mcg Pantoprazole Sodium (Protonix Inj) 40 mg IVP Q12H [facility] Last Admin: 12/25/18 20:50 Dose: 40 mg Rosuvastatin Calcium (Crestor) 5 mg PO HS [facility] Last Admin: 12/24/18 21:35 Dose: 5 mg Sodium Bicarbonate (Sodium Bicarbonate Tab) 1,300 mg PO Q6 [facility] Last Admin: 12/22/18 19:04 Dose: 1,300 mg Sodium Bicarbonate (Sodium Bicarbonate 8.4% (50 Meq) Vial) 50 meq IVP Q4H [facility] Last Admin: 12/22/18 20:46 Dose: 50 meq Tamsulosin HCl (Flomax) 0.4 mg PO DAILY [facility] Last Admin: 12/25/18 10:47 Dose: 0.4 mg - Labs Labs: 12/25/18 06:13 12/25/18 06:13 PT 23.5 SECONDS (9.7-12.2) H 12/24/18 08:11 INR 2.1 12/24/18 08:11 APTT 35 SECONDS (21-34) H 12/24/18 08:11
[2018-12-26] MEDS: Vasopressin 40 UNITS in Dextrose 5% In Water 40 ML IV SCH (05:15)
[2018-12-26] MEDS: Levothyroxine 50 MCG TAB PO SCH (06:23)
[2018-12-26 06:36] LABS: INR 2.6
[2018-12-26 06:49] LABS: ALB/GLOB RATIO 1.4 (1.0-2.1); ALBUMIN 3.2 g/dL (3.5-5.0); CALCIUM 7.5 mg/dl (8.6-10.4)
[2018-12-26 07:14] LABS: HEMOGLOBIN 9.1 g/dL (12.0-18.0); MEAN CELL VOLUME 97.1 fL (80.0-94.0); MEAN CORPUSCULAR HEMOGLOBIN 32.7 pg (27.0-31.0); MEAN CORPUSCULAR HGB CONC 33.7 g/dL (33.0-37.0); MEAN PLATELET VOLUME 10.8 fL (7.2-11.7); PLATELET COUNT 41 K/uL (130-400); RBC 2.78 Mil/uL (4.40-5.90); RED CELL DISTRIBUTION WIDTH 20.7 % (11.5-14.5); WHITE BLOOD COUNT 8.2 K/uL (4.8-10.8)
--- NOTE | 2018-12-26 08:05 | RAD ---
Chest x-ray single frontal view HISTORY: Congestive heart failure. COMPARISON: 12/25/2018 FINDINGS: NG tube extending into the stomach. Other lines and tubes in stable position. Persistent patchy consolidative opacification at the right base. Right hilar prominence. Cardiomegaly. Venous congestion. Dense sclerosis throughout the visualized osseous structures. Impression: NG tube extending into the stomach. Other lines and tubes in stable position. Persistent patchy consolidative opacification at the right base. Right hilar prominence. Cardiomegaly. Venous congestion. Dense sclerosis throughout the visualized osseous structures.
[2018-12-26 09:28] LABS: LYMPH # 0.2 K/uL (1.0-4.3); MONO # 0.2 K/uL (0.0-0.8); NEUT # 7.9 K/uL (1.8-7.0)
[2018-12-26 09:37] LABS: ANISOCYTOSIS SLIGHT; HYPOCHROMIC SLIGHT; LYMPHOCYTE 2 % (20-40); MONOCYTE 4 % (0-10); NEUTROPHIL 94 % (50-75); PLATELET ESTIMATE DECREASED (NORMAL); TOTAL CELLS COUNTED 100
[2018-12-26 09:38] LABS: POLYCHROMIC SLIGHT; TARGET CELLS MODERATE
[2018-12-26 09:41] LABS: ABG ALLEN TEST N; ARTERIAL BLOOD GAS HCO3 23.7 mmol/L (21-28); ARTERIAL BLOOD GAS O2 SAT 55.2 % (95-98); ARTERIAL BLOOD GAS PCO2 37 mm/Hg (35-45); ARTERIAL BLOOD GAS PH 7.42 (7.35-7.45); ARTERIAL BLOOD GAS PO2 29 mm/Hg (80-100); ARTERIAL BLOOD GAS TCO2 25.1 mmol/L (22-28)
[2018-12-26] MEDS: BICALUTAMIDE 50 MG PO SCH (10:00)
[2018-12-26] MEDS ORDERED: Phytonadione 10 mg/ml Inj (Adult) IV ONE (10:00)
[2018-12-26 11:20] LABS: ARTERIAL BLOOD GAS HCO3 24.7 mmol/L (21-28); ARTERIAL BLOOD GAS O2 SAT 99.5 % (95-98); ARTERIAL BLOOD GAS PCO2 27 mm/Hg (35-45); ARTERIAL BLOOD GAS PH 7.51 (7.35-7.45); ARTERIAL BLOOD GAS PO2 90 mm/Hg (80-100); ARTERIAL BLOOD GAS TCO2 22.3 mmol/L (22-28)
--- NOTE | 2018-12-26 11:56 | CP.PCM.PN ---
"<Farida Weller - Last Filed: 12/26/18 16:38> Subjective - Date & Time of Evaluation Date of Evaluation: 12/26/18 Time of Evaluation: 11:51 - Subjective Subjective: Patient seen and examined at bedside. No overnight events reported. ROS unabled to be obtained due to patients mental status. He is arousable to verbal stimuli and can follow simple commands. Currently on Dopamine Drip. Objective - Vital Signs/Intake and Output Vital Signs (last 24 hours): Temp Pulse Resp BP Pulse Ox 96 F L 115 H 20 108/66 100 12/26/18 08:00 12/26/18 09:08 12/26/18 09:08 12/26/18 09:08 12/26/18 08:08 Intake and Output: 12/26/18 12/26/18 06:59 18:59 Intake Total 368.4 154.9 Balance 368.4 154.9 - Medications Medications: Current Medications Dextrose (Dextrose 50% Inj) 0 ml IV STAT PRN; Protocol PRN Reason: Hypoglycemia Protocol Last Admin: 12/25/18 06:42 Dose: 50 ml Dextrose (Glutose 15) 0 gm PO ONCE PRN; Protocol PRN Reason: Hypoglycemia Protocol Glucagon (Glucagen Diagnostic Kit) 0 mg IM STAT PRN; Protocol PRN Reason: Hypoglycemia Protocol Home Med (Patient's Own Medication) 1 tab PO DAILY [facility] Last Admin: 12/25/18 10:47 Dose: 1 tab Hydrocortisone Sodium Succinate (Solu-Cortef) 100 mg IV Q8H [facility] Last Admin: 12/26/18 10:01 Dose: 100 mg Cefepime HCl (Maxipime Iv 1 Gm Premix) 1 gm in 50 mls @ 100 mls/hr IVPB Q24H [facility]; Protocol Last Admin: 12/25/18 17:33 Dose: 100 mls/hr Vasopressin 40 units/ Dextrose 42 mls @ 0.63 mls/hr IV .Q24H [facility]; Protocol Last Admin: 12/26/18 05:15 Dose: Not Given Dopamine HCl/Dextrose (Dopamine 400mg/250ml D5w) 400 mg in 250 mls @ 5.239 mls/hr IV .Q24H PRN; Protocol PRN Reason: TITRATE PER MD ORDER Last Titration: 12/26/18 08:00 Dose: 1.94 mcg/kg/min, 5.1 mls/hr Levothyroxine Sodium (Synthroid) 50 mcg PO DAILY@0630 [facility] Last Admin: 12/26/18 06:23 Dose: 50 mcg Pantoprazole Sodium (Protonix Inj) 40 mg IVP Q12H [facility] Last Admin: 12/26/18 10:01 Dose: 40 mg Rosuvastatin Calcium (Crestor) 5 mg PO HS [facility] Last Admin: 12/25/18 22:00 Dose: 5 mg Tamsulosin HCl (Flomax) 0.4 mg PO DAILY [facility] Last Admin: 12/26/18 10:01 Dose: 0.4 mg - Labs Labs: 12/26/18 06:23 12/26/18 06:23 PT 28.0 SECONDS (9.7-12.2) H 12/26/18 06:23 INR 2.6 D 12/26/18 06:23 APTT 37 SECONDS (21-34) H 12/26/18 06:23 - Constitutional Appears: Toxic, Cachectic, Chronically Ill - Head Exam Head Exam: ATRAUMATIC, NORMAL INSPECTION - Eye Exam Eye Exam: PERRL - ENT Exam ENT Exam: Mucous Membranes Moist - Neck Exam Neck Exam: absent: Normal Inspection (JVD) - Respiratory Exam Respiratory Exam: Rales. absent: Wheezes - Cardiovascular Exam Cardiovascular Exam: JVD, +S1, +S2, Murmur - GI/Abdominal Exam GI & Abdominal Exam: Distended, Soft - Extremities Exam Extremities Exam: Pedal Edema (+1) - Neurological Exam Neurological Exam: Awake. absent: Alert, Oriented x3 - Psychiatric Exam Psychiatric exam: Flat Affect - Skin Skin Exam: Normal Color, Warm Assessment and Plan - Assessment and Plan (Free Text) Assessment: 78 years old male with Arthritis (KNEE), CAD, CHF, Gastritis, Gall Bladder Disease, HTN, Prostate Ca stage IV; Liver Cirrhosis; Hypothyroidism; Umbilical hernia; A Fib who presents due to opiate overdose. Cardiology consulted for SOB, anemia, and CHF Hx Plan: A-Fib | HFrEF| SOB | HTN | CAD| NSTEMI | Macrocytic Anemia|Shock (Sepsis vs Cardiogenic) DDx: Shock (Cardiogenic vs Septic), NSTEMI, Myxedema Coma. ECHO (09/2018): Severe LV systolic dysfunction, Dilated LA and LV, Mild to moderate AR, Mild to moderate MR. Troponins 0.3950-->0.3570--->0.2760 | BNP elevated at 69,400 | TSH elevated | Stool Occult Blood - NEGATIVE Mgmt: Correct any Electrolyte abnormalities Consider increased Synthroid. Although increased TSH could be subclinical. Consider repeating Free T3/T4 Hold Amiodarone 200mg po Daily due Hypotension. Patient currently on Pressors Elevated Troponin likely due to Renal Failure vs Type II VT vs mixed. Hold Home Lasix 20mg PO daily ECHO to rule out possible pericardial effusion per Nephro. Life Jacket Consider Psychiatry consult. 1:1 Strict I/O's Transfuse PRN. Ammonia Lvl Consider Head imaging. Consider Starting Levophed. Dispo: Patient still hypotensive. Consider using levophed. Consider Swanz catherization to calculate wedge pressure and determine etiology of shock (Cardiogenic vs infectious) Patient discussed with Dr. Maxim Weller, PGY-2 <Romulo Pan - Last Filed: 12/26/18 23:11> Objective - Vital Signs/Intake and Output Vital Signs (last 24 hours): Temp Pulse Resp BP Pulse Ox 96.9 F L 116 H 25 H 104/64 92 L 12/26/18 18:45 12/26/18 21:00 12/26/18 21:00 12/26/18 20:43 12/26/18 20:43 Intake and Output: 12/26/18 12/27/18 18:59 06:59 Intake Total 666.9 73.1 Output Total 0 Balance 666.9 73.1 - Medications Medications: Current Medications Dextrose (Dextrose 50% Inj) 0 ml IV STAT PRN; Protocol PRN Reason: Hypoglycemia Protocol Last Admin: 12/25/18 06:42 Dose: 50 ml Dextrose (Glutose 15) 0 gm PO ONCE PRN; Protocol PRN Reason: Hypoglycemia Protocol Glucagon (Glucagen Diagnostic Kit) 0 mg IM STAT PRN; Protocol PRN Reason: Hypoglycemia Protocol Home Med (Patient's Own Medication) 1 tab PO DAILY [facility] Last Admin: 12/26/18 10:00 Dose: 1 tab Hydrocortisone Sodium Succinate (Solu-Cortef) 100 mg IV Q8H [facility] Last Admin: 12/26/18 18:15 Dose: 100 mg Cefepime HCl (Maxipime Iv 1 Gm Premix) 1 gm in 50 mls @ 100 mls/hr IVPB Q24H [facility]; Protocol Last Admin: 12/26/18 18:15 Dose: 100 mls/hr Vasopressin 40 units/ Dextrose 42 mls @ 0.63 mls/hr IV .Q24H [facility]; Protocol Last Admin: 12/26/18 05:15 Dose: Not Given Dopamine HCl/Dextrose (Dopamine 400mg/250ml D5w) 400 mg in 250 mls @ 5.239 mls/hr IV .Q24H PRN; Protocol PRN Reason: TITRATE PER MD ORDER Last Titration: 12/26/18 13:00 Dose: 2.93 mcg/kg/min, 7.7 mls/hr Levothyroxine Sodium (Synthroid) 50 mcg PO DAILY@0630 [facility] Last Admin: 12/26/18 06:23 Dose: 50 mcg Morphine Sulfate (Morphine) 2 mg IVP Q4 PRN PRN Reason: Pain, moderate (4-7) Pantoprazole Sodium (Protonix Inj) 40 mg IVP Q12H [facility] Last Admin: 12/26/18 21:33 Dose: 40 mg Rosuvastatin Calcium (Crestor) 5 mg PO HS [facility] Last Admin: 12/26/18 21:33 Dose: Not Given Tamsulosin HCl (Flomax) 0.4 mg PO DAILY [facility] Last Admin: 12/26/18 10:01 Dose: 0.4 mg - Labs Labs: 12/26/18 06:23 12/26/18 06:23 PT 28.0 SECONDS (9.7-12.2) H 12/26/18 06:23 INR 2.6 D 12/26/18 06:23 APTT 37 SECONDS (21-34) H 12/26/18 06:23 Assessment and Plan - Assessment and Plan (Free Text) Plan: Patient seen and personally evaluated by me. Plan of care d/w the medical reside nt and as documented"
--- NOTE | 2018-12-26 12:02 | CP.PCM.PN ---
Subjective - Date & Time of Evaluation Date of Evaluation: 12/26/18 Time of Evaluation: 11:59 - Subjective Subjective: Patient is lethargic, only opens up his eyes when called by name. Patient looks much more sick than when I saw him on Monday. NGT in place drains green, bile looking matter. T Ariel high at 8.5. E Coli infection in the urine. BP low at 108/66. Patient's at bedside. I was called to discuss goals of care with patient's . Objective - Vital Signs/Intake and Output Vital Signs (last 24 hours): Temp Pulse Resp BP Pulse Ox 96 F L 115 H 20 108/66 100 12/26/18 08:00 12/26/18 09:08 12/26/18 09:08 12/26/18 09:08 12/26/18 08:08 Intake and Output: 12/26/18 12/26/18 06:59 18:59 Intake Total 368.4 154.9 Balance 368.4 154.9 - Medications Medications: Current Medications Dextrose (Dextrose 50% Inj) 0 ml IV STAT PRN; Protocol PRN Reason: Hypoglycemia Protocol Last Admin: 12/25/18 06:42 Dose: 50 ml Dextrose (Glutose 15) 0 gm PO ONCE PRN; Protocol PRN Reason: Hypoglycemia Protocol Glucagon (Glucagen Diagnostic Kit) 0 mg IM STAT PRN; Protocol PRN Reason: Hypoglycemia Protocol Home Med (Patient's Own Medication) 1 tab PO DAILY [facility] Last Admin: 12/25/18 10:47 Dose: 1 tab Hydrocortisone Sodium Succinate (Solu-Cortef) 100 mg IV Q8H [facility] Last Admin: 12/26/18 10:01 Dose: 100 mg Cefepime HCl (Maxipime Iv 1 Gm Premix) 1 gm in 50 mls @ 100 mls/hr IVPB Q24H [facility]; Protocol Last Admin: 12/25/18 17:33 Dose: 100 mls/hr Vasopressin 40 units/ Dextrose 42 mls @ 0.63 mls/hr IV .Q24H [facility]; Protocol Last Admin: 12/26/18 05:15 Dose: Not Given Dopamine HCl/Dextrose (Dopamine 400mg/250ml D5w) 400 mg in 250 mls @ 5.239 mls/hr IV .Q24H PRN; Protocol PRN Reason: TITRATE PER MD ORDER Last Titration: 12/26/18 08:00 Dose: 1.94 mcg/kg/min, 5.1 mls/hr Levothyroxine Sodium (Synthroid) 50 mcg PO DAILY@0630 [facility] Last Admin: 12/26/18 06:23 Dose: 50 mcg Pantoprazole Sodium (Protonix Inj) 40 mg IVP Q12H [facility] Last Admin: 12/26/18 10:01 Dose: 40 mg Rosuvastatin Calcium (Crestor) 5 mg PO HS [facility] Last Admin: 12/25/18 22:00 Dose: 5 mg Tamsulosin HCl (Flomax) 0.4 mg PO DAILY [facility] Last Admin: 12/26/18 10:01 Dose: 0.4 mg - Labs Labs: 12/26/18 06:23 12/26/18 06:23 PT 28.0 SECONDS (9.7-12.2) H 12/26/18 06:23 INR 2.6 D 12/26/18 06:23 APTT 37 SECONDS (21-34) H 12/26/18 06:23 - Constitutional Appears: In Acute Distress, Chronically Ill - Head Exam Head Exam: ATRAUMATIC, NORMAL INSPECTION, NORMOCEPHALIC - Eye Exam Eye Exam: EOMI, Normal appearance Pupil Exam: NORMAL ACCOMODATION, PERRL Additional comments: sclera yellow - ENT Exam Additional comments: NGT in situ - Neck Exam Neck Exam: Normal Inspection - Respiratory Exam Respiratory Exam: Decreased Breath Sounds, Rhonchi - Cardiovascular Exam Cardiovascular Exam: Tachycardia, Irregular Rhythm - GI/Abdominal Exam GI & Abdominal Exam: Distended, Firm, Rigid - Rectal Exam Rectal Exam: Deferred - Extremities Exam Extremities Exam: Pedal Edema, Tenderness - Back Exam Back Exam: CVA tenderness (L) - Neurological Exam Neurological Exam: Alert, Altered Neuro motor strength exam: Left Upper Extremity: 2/1, Right Upper Extremity: 2/1, Left Lower Extremity: 2/1, Right Lower Extremity: 2/1 - Psychiatric Exam Psychiatric exam: Flat Affect - Skin Skin Exam: Pallor, Pallor Additional comments: jaundice Assessment and Plan - Assessment and Plan (Free Text) Plan: Patient's was at bed side after I entered the room, looking stressed out. Apparently she " never heard" about her 's condition and this was first time she heard it from Commissioner Of Conciliation. I attempted to help her calm down, but she stormed out the door intending to leave hospital. For her safety I attended her to the Main Lobby Exit and asked Cnc Laser Operator Catalina to help me comfort her. Cnc Laser Operator Catalina took over, trying to reach the . On physical exam, patient looks very ill,lethargic,has lost weight, skin is jaundiced. NGT in place for gastric decompression, drainage dark green. Abdomen distended, hard and rigid. patient is NPO, IVF up for hydration. Urine output minimal. I discussed this patient's very complex condition with ICU resident. We agreed that patient is gravelly ill. Patient's daughter was called and is on her way to the hospital. Impression * Liver cirrhosis * Abdominal distention * PO intolerance * Jaundice * AMS * I feel, patient will on this admission * is unable to accept poor prognosis * demonstrates psychosocial disorder due to her 's condition * Patient is no more able to discuss goals of care Suggestion * Promote comfort * Promote skin integrity * Meticulous oral care * NPO * Comfort care should be best level of care at this stage of patient's life * Patient should be DNR/DNI I will meet with daughter this afternoon when she comes to discuss Hospice and Code status.
--- NOTE | 2018-12-26 13:51 | CP.PCM.PN ---
Subjective - Date & Time of Evaluation Date of Evaluation: 12/26/18 Time of Evaluation: 09:00 - Subjective Subjective: Nephro Progress Note for Dr. Gen Hassan DO, IM PGY-3 Patient seen and examined in the ICU. Somnolent but arousable, but non-verbal, not following commands, appears confused. Mitts on to prevent line pulling. Lactate improved on ABG today, but worsening LFT, still requiring low-dose Dopamine for pressure support. S/p HD yesterday with 1.5L removed. Objective - Vital Signs/Intake and Output Vital Signs (last 24 hours): Temp Pulse Resp BP Pulse Ox 96 F L 115 H 20 108/66 100 12/26/18 08:00 12/26/18 09:08 12/26/18 09:08 12/26/18 09:08 12/26/18 08:08 Intake and Output: 12/26/18 12/26/18 06:59 18:59 Intake Total 368.4 154.9 Balance 368.4 154.9 - Medications Medications: Current Medications Dextrose (Dextrose 50% Inj) 0 ml IV STAT PRN; Protocol PRN Reason: Hypoglycemia Protocol Last Admin: 12/25/18 06:42 Dose: 50 ml Dextrose (Glutose 15) 0 gm PO ONCE PRN; Protocol PRN Reason: Hypoglycemia Protocol Glucagon (Glucagen Diagnostic Kit) 0 mg IM STAT PRN; Protocol PRN Reason: Hypoglycemia Protocol Home Med (Patient's Own Medication) 1 tab PO DAILY [facility] Last Admin: 12/25/18 10:47 Dose: 1 tab Hydrocortisone Sodium Succinate (Solu-Cortef) 100 mg IV Q8H [facility] Last Admin: 12/26/18 10:01 Dose: 100 mg Cefepime HCl (Maxipime Iv 1 Gm Premix) 1 gm in 50 mls @ 100 mls/hr IVPB Q24H [facility]; Protocol Last Admin: 12/25/18 17:33 Dose: 100 mls/hr Vasopressin 40 units/ Dextrose 42 mls @ 0.63 mls/hr IV .Q24H [facility]; Protocol Last Admin: 12/26/18 05:15 Dose: Not Given Dopamine HCl/Dextrose (Dopamine 400mg/250ml D5w) 400 mg in 250 mls @ 5.239 mls/hr IV .Q24H PRN; Protocol PRN Reason: TITRATE PER MD ORDER Last Titration: 12/26/18 08:00 Dose: 1.94 mcg/kg/min, 5.1 mls/hr Levothyroxine Sodium (Synthroid) 50 mcg PO DAILY@0630 [facility] Last Admin: 12/26/18 06:23 Dose: 50 mcg Metoclopramide HCl (Reglan) 10 mg IVP ONCE ONE Stop: 12/26/18 13:45 Pantoprazole Sodium (Protonix Inj) 40 mg IVP Q12H [facility] Last Admin: 12/26/18 10:01 Dose: 40 mg Rosuvastatin Calcium (Crestor) 5 mg PO HS [facility] Last Admin: 12/25/18 22:00 Dose: 5 mg Tamsulosin HCl (Flomax) 0.4 mg PO DAILY [facility] Last Admin: 12/26/18 10:01 Dose: 0.4 mg - Labs Labs: 12/26/18 06:23 12/26/18 06:23 PT 28.0 SECONDS (9.7-12.2) H 12/26/18 06:23 INR 2.6 D 12/26/18 06:23 APTT 37 SECONDS (21-34) H 12/26/18 06:23 - Additional Findings Additional findings: - Constitutional Appears: Chronically Ill, Altered/Confused - Head Exam Head Exam: ATRAUMATIC, NORMAL INSPECTION, NORMOCEPHALIC - Eye Exam Eye Exam: Normal appearance. absent: Conjunctival injection, Scleral icterus - ENT Exam ENT Exam: Mucous Membranes Moist - Neck Exam Neck exam: Positive for: Normal Inspection. Negative for: Lymphadenopathy - Respiratory Exam Respiratory Exam: clear to auscultation, no wheezes/rales/ronchi, no accessory muscle use, no respiratory distress, still on 4L supplemental O2 via NC - Cardiovascular Exam Cardiovascular Exam: Tachycardia, regular rhythm, +S1, +S2, JVD. absent: Bradycardia, Irregular Rhythm - GI/Abdominal Exam GI & Abdominal Exam: Diminished Bowel Sounds, Firm but not rigid. absent: Distended, Hyperactive Bowel Sounds, Hypoactive Bowel Sounds, Normal Bowel Sounds - Extremities Exam Extremities exam: Positive for: pedal pulses present. 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 Nephro con sulted for acutely elevated Cr concerning for renal failure. Plan: 1) acute renal failure 2) Opiate overdose requiring Narcan - UDS negative but reported responsive immediately after Narcan 3) Shock requiring pressor support Septic vs Cardiogenic 4) Cirrhosis with ascites 5) HFrEF (15-20%) 6) Stage IV prostate Ca with spinal mets 7) Acidosis with worsening lactate - improved 8) Afib 9) Acutely worsening LFTs -likely renal failure is 2/2 shock state, suspect infectious component and hypovolemic component, possible ATN Cr 5.5 on admission, 3.1 today, s/p HD with 1.5L removed yesterday Oxygenation remains stable on ABG, sats good on 4L NC, and no signs of fluid overload on CXR, so no need for HD today S/p HD yesterday, 1L UF removed, plan for another 1-1.5L removal today Net positive ~5L this admission, but remains hypotensive, on Dopamine for pressor support -Initial Urine Cx notable for alvarez-sensitive E coli, new blood cultures negative at 24hrs -Elevated trop likely 2/2 renal leak +/- myocardial ischemia 2/2 hypoperfusion, resolved Need echo to rule out cardiac effusion/tamponade, pending -Lactate improved today, down to 3.9, but still worsening hepatic function, still altered, still hypotensive requiring dopamine support Abd US negative for hepatic masses, so less likely mets from prostate Ca, pending CT abd/pelvis Possible worsening sepsis, pending repeat blood cultures Avoid further bicarb to prevent worsening overload, especially in setting of improving lactic acidosis Patient seen, reviewed, and discussed with attending, Dr. Blevins
--- NOTE | 2018-12-26 14:01 | CP.CCUPN ---
<Jn Garay - Last Filed: 12/26/18 13:46> CCU Subjective - Physician Review Subjective (Free Text): Pt seen and examined this am. Eyes open to voice. Not following commands. Poor prognosis. Plan for family meeting to discuss goals of care. Critical Care Time Spent (in minutes): 35 CCU Objective - Vital Signs / Intake & Output Vital Signs (Last 4 hours): Vital Signs Temp Pulse Resp BP BP Pulse Ox 12/26/18 08:08 111 H 19 105/70 100 12/26/18 08:00 96 F L 107/53 L 12/26/18 07:08 106 H 18 109/76 12/26/18 07:00 107 H 16 12/26/18 06:08 109 H 20 106/71 90 L 12/26/18 06:00 110 H 19 88 L 12/26/18 05:08 110 H 20 103/67 91 L 12/26/18 05:00 113 H 26 H 86 L Intake and Output (Last 8hrs): Intake & Output 12/25/18 12/26/18 12/26/18 22:59 06:59 14:59 Intake Total 337.6 221.6 52.8 Balance 337.6 221.6 52.8 Weight 154 lb Intake: IV 61 Intake, IV Amount 211.6 61.6 12.8 Rt IJ Medial port 61.6 61.6 12.8 Rt IJ TLC Proximal port 150 Tube Feeding 65 160 40 Other: # Bowel Movements 0 0 0 - Physical Exam Head: Positive for: Atraumatic, Normocephalic Pupils: Positive for: PERRL Conjunctiva: Positive for: Normal Mouth: Positive for: Moist Mucous Membranes Neck: Positive for: Normal Range of Motion Respiratory/Chest: Positive for: Clear to Auscultation, Good Air Exchange. Negative for: Respiratory Distress, Accessory Muscle Use Cardiovascular: Positive for: Regular Rate and Rhythm, Normal S1, S2 Abdomen: Positive for: Distention, Normal Bowel Sounds. Negative for: Tenderness, Peritoneal Signs Upper Extremity: Positive for: Normal Inspection. Negative for: Cyanosis Lower Extremity: Positive for: Normal Inspection. Negative for: Edema Psychiatric: Positive for: Alert, Oriented x 3 - Medications Active Medications: Active Medications Generic Name Dose Route Start Last Admin Trade Name Freq PRN Reason Stop Dose Admin Dextrose 0 ml 12/21/18 12:38 12/25/18 06:42 Dextrose 50% Inj IV 50 ml STAT PRN Administration Hypoglycemia Protocol Protocol Dextrose 0 gm 12/21/18 12:38 Glutose 15 PO ONCE PRN Hypoglycemia Protocol Protocol Glucagon 0 mg 12/21/18 12:38 Glucagen Diagnostic Kit IM STAT PRN Hypoglycemia Protocol Protocol Home Med 1 tab 12/23/18 10:00 12/25/18 10:47 Patient's Own Medication PO 1 tab DAILY JOSÉ MIGUEL Administration Hydrocortisone Sodium Succinate 100 mg 12/22/18 17:00 12/26/18 01:00 Solu-Cortef IV 100 mg Q8H JOSÉ MIGUEL Administration Cefepime HCl 1 gm in 50 mls @ 100 mls/hr 12/21/18 17:45 12/25/18 17:33 Maxipime Iv 1 Gm Premix IVPB 100 mls/hr Q24H JOSÉ MIGUEL Administration Protocol Vasopressin 40 units/ Dextrose 42 mls @ 0.63 mls/hr 12/22/18 05:15 12/26/18 05:15 IV Not Given .Q24H JOSÉ MIGUEL Protocol 0.01 UNITS/MIN Dopamine HCl/Dextrose 400 mg in 250 mls @ 5.239 mls/hr 12/25/18 11:01 12/25/18 22:03 Dopamine 400mg/250ml D5w IV 2.93 mcg/kg/min .Q24H PRN 7.675 mls/hr TITRATE PER MD ORDER Administration Protocol 2 MCG/KG/MIN Levothyroxine Sodium 50 mcg 12/21/18 08:00 12/26/18 06:23 Synthroid PO 50 mcg DAILY@0630 JOSÉ MIGUEL Administration Pantoprazole Sodium 40 mg 12/22/18 09:00 12/25/18 20:50 Protonix Inj IVP 40 mg Q12H JOSÉ MIGUEL Administration Rosuvastatin Calcium 5 mg 12/21/18 22:00 12/25/18 22:00 Crestor PO 5 mg HS JOSÉ MIGUEL Administration Sodium Bicarbonate 1,300 mg 12/22/18 12:00 12/22/18 19:04 Sodium Bicarbonate Tab PO 1,300 mg Q6 JOSÉ MIGUEL Administration Sodium Bicarbonate 50 meq 12/22/18 08:45 12/22/18 20:46 Sodium Bicarbonate 8.4% (50 Meq) Vial IVP 50 meq Q4H JOSÉ MIGUEL Administration Tamsulosin HCl 0.4 mg 12/21/18 10:00 12/25/18 10:47 Flomax PO 0.4 mg DAILY JOSÉ MIGUEL Administration - Patient Studies Lab Studies: Microbiology Studies 12/21/18 05:53 Blood Culture - Preliminary Blood-Venous NO GROWTH AFTER 4 DAYS 12/21/18 05:53 Blood Culture - Preliminary Blood-Venous NO GROWTH AFTER 4 DAYS Lab Studies 12/26/18 12/26/18 12/26/18 Range/Units 06:23 06:23 06:23 WBC 8.2 (4.8-10.8) K/uL RBC 2.78 L (4.40-5.90) Mil/uL Hgb 9.1 L (12.0-18.0) g/dL Hct 27.0 L (35.0-51.0) % MCV 97.1 H (80.0-94.0) fL MCH 32.7 H (27.0-31.0) pg MCHC 33.7 (33.0-37.0) g/dL RDW 20.7 H (11.5-14.5) % Plt Count 41 L (130-400) K/uL MPV 10.8 (7.2-11.7) fL Neut % (Auto) (50.0-75.0) % Lymph % (Auto) (20.0-40.0) % [place] % (Auto) (0.0-10.0) % Eos % (Auto) (0.0-4.0) % Baso % (Auto) (0.0-2.0) % Neut # (Auto) (1.8-7.0) K/uL Lymph # (Auto) (1.0-4.3) K/uL [place] # (Auto) (0.0-0.8) K/uL Eos # (Auto) (0.0-0.7) K/uL Baso # (Auto) (0.0-0.2) K/uL Neutrophils % (Manual) (50-75) % Band Neutrophils % (0-2) % Lymphocytes % (Manual) (20-40) % Monocytes % (Manual) (0-10) % Nucleated RBC % (0-0) % Platelet Estimate (NORMAL) Poikilocytosis (manual Anisocytosis (manual) Ovalocytes [place] Cells PT 28.0 H (9.7-12.2) SECONDS INR 2.6 D APTT 37 H (21-34) SECONDS Puncture Site pCO2 (35-45) mm/Hg pO2 (80-100) mm/Hg HCO3 (21-28) mmol/L ABG pH (7.35-7.45) ABG Total CO2 (22-28) mmol/L ABG O2 Saturation (95-98) % ABG Base Excess (-2.0-3.0) mmol/L Gregory Test ABG Potassium (3.6-5.2) mmol/L A-a O2 Difference mm/Hg Respiratory Index Sodium 137 (132-148) mmol/l Chloride 97 L (98-107) mmol/L Glucose (75-110) mg/dl Lactate (0.7-2.1) mmol/L Liter Flow FiO2 % Crit Value Called To Crit Value Called By Crit Value Read Back Blood Gas Notified Time Potassium 3.8 (3.6-5.2) mmol/L Carbon Dioxide 22 (22-30) mmol/L Anion Gap 22 H (10-20) BUN 43 H (9-20) mg/dL Creatinine 3.1 H (0.8-1.5) mg/dL Est GFR ( Amer) 24 Est GFR (Non-Af Amer) 20 POC Glucose (mg/dL) (65-110) mg/dL Random Glucose 104 D (75-110) mg/dL Calcium 7.5 L (8.6-10.4) mg/dl Phosphorus 4.1 (2.5-4.5) mg/dL Magnesium 2.2 (1.6-2.3) mg/dL Total Bilirubin 8.5 H (0.2-1.3) mg/dL AST 1353 H (17-59) U/L ALT 235 H (21-72) U/L Alkaline Phosphatase 620 H (38-126) U/L Total Protein 5.5 L (6.3-8.3) g/dL Albumin 3.2 L (3.5-5.0) g/dL Globulin 2.3 (2.2-3.9) gm/dL Albumin/Globulin Ratio 1.4 (1.0-2.1) Arterial Blood Potassium (3.6-5.2) mmol/L 12/26/18 12/25/18 12/25/18 Range/Units 06:21 23:35 23:32 WBC (4.8-10.8) K/uL RBC (4.40-5.90) Mil/uL Hgb (12.0-18.0) g/dL Hct (35.0-51.0) % MCV (80.0-94.0) fL MCH (27.0-31.0) pg MCHC (33.0-37.0) g/dL RDW (11.5-14.5) % Plt Count (130-400) K/uL MPV (7.2-11.7) fL Neut % (Auto) (50.0-75.0) % Lymph % (Auto) (20.0-40.0) % [place] % (Auto) (0.0-10.0) % Eos % (Auto) (0.0-4.0) % Baso % (Auto) (0.0-2.0) % Neut # (Auto) (1.8-7.0) K/uL Lymph # (Auto) (1.0-4.3) K/uL [place] # (Auto) (0.0-0.8) K/uL Eos # (Auto) (0.0-0.7) K/uL Baso # (Auto) (0.0-0.2) K/uL Neutrophils % (Manual) (50-75) % Band Neutrophils % (0-2) % Lymphocytes % (Manual) (20-40) % Monocytes % (Manual) (0-10) % Nucleated RBC % (0-0) % Platelet Estimate (NORMAL) Poikilocytosis (manual Anisocytosis (manual) Ovalocytes [place] Cells PT (9.7-12.2) SECONDS INR APTT (21-34) SECONDS Puncture Site pCO2 (35-45) mm/Hg pO2 (80-100) mm/Hg HCO3 (21-28) mmol/L ABG pH (7.35-7.45) ABG Total CO2 (22-28) mmol/L ABG O2 Saturation (95-98) % ABG Base Excess (-2.0-3.0) mmol/L Gregory Test ABG Potassium (3.6-5.2) mmol/L A-a O2 Difference mm/Hg Respiratory Index Sodium (132-148) mmol/l Chloride (98-107) mmol/L Glucose (75-110) mg/dl Lactate (0.7-2.1) mmol/L Liter Flow FiO2 % Crit Value Called To Crit Value Called By Crit Value Read Back Blood Gas Notified Time Potassium (3.6-5.2) mmol/L Carbon Dioxide (22-30) mmol/L Anion Gap (10-20) BUN (9-20) mg/dL Creatinine (0.8-1.5) mg/dL Est GFR ( Amer) Est GFR (Non-Af Amer) POC Glucose (mg/dL) 113 H 97 61 L (65-110) mg/dL Random Glucose (75-110) mg/dL Calcium (8.6-10.4) mg/dl Phosphorus (2.5-4.5) mg/dL Magnesium (1.6-2.3) mg/dL Total Bilirubin (0.2-1.3) mg/dL AST (17-59) U/L ALT (21-72) U/L Alkaline Phosphatase (38-126) U/L Total Protein (6.3-8.3) g/dL Albumin (3.5-5.0) g/dL Globulin (2.2-3.9) gm/dL Albumin/Globulin Ratio (1.0-2.1) Arterial Blood Potassium (3.6-5.2) mmol/L 12/25/18 12/25/18 12/25/18 Range/Units 17:22 08:55 06:13 WBC (4.8-10.8) K/uL RBC (4.40-5.90) Mil/uL Hgb (12.0-18.0) g/dL Hct (35.0-51.0) % MCV (80.0-94.0) fL MCH (27.0-31.0) pg MCHC (33.0-37.0) g/dL RDW (11.5-14.5) % Plt Count (130-400) K/uL MPV (7.2-11.7) fL Neut % (Auto) 91.0 H (50.0-75.0) % Lymph % (Auto) 8.0 L (20.0-40.0) % [place] % (Auto) 1.0 (0.0-10.0) % Eos % (Auto) 0.0 (0.0-4.0) % Baso % (Auto) 0.0 (0.0-2.0) % Neut # (Auto) 8.3 H (1.8-7.0) K/uL Lymph # (Auto) 0.7 L (1.0-4.3) K/uL [place] # (Auto) 0.1 (0.0-0.8) K/uL Eos # (Auto) 0.0 (0.0-0.7) K/uL Baso # (Auto) 0.0 (0.0-0.2) K/uL Neutrophils % (Manual) 84 H (50-75) % Band Neutrophils % 9 H (0-2) % Lymphocytes % (Manual) 4 L (20-40) % Monocytes % (Manual) 3 (0-10) % Nucleated RBC % 1 H (0-0) % Platelet Estimate Decreased L (NORMAL) Poikilocytosis (manual Slight Anisocytosis (manual) Moderate Ovalocytes Slight [place]ira Cells Slight PT (9.7-12.2) SECONDS INR APTT (21-34) SECONDS Puncture Site [place] pCO2 17 L* (35-45) mm/Hg pO2 99 (80-100) mm/Hg HCO3 14.9 L (21-28) mmol/L ABG pH 7.37 (7.35-7.45) ABG Total CO2 10.3 L (22-28) mmol/L ABG O2 Saturation 99.8 H (95-98) % ABG Base Excess -12.8 L (-2.0-3.0) mmol/L Gregory Test Na ABG Potassium 4.6 (3.6-5.2) mmol/L A-a O2 Difference 136.0 mm/Hg Respiratory Index 1.4 Sodium 139.0 (132-148) mmol/l Chloride 102.0 (98-107) mmol/L Glucose 95 (75-110) mg/dl Lactate 11.5 H* (0.7-2.1) mmol/L Liter Flow 4.0 FiO2 36.0 % Crit Value Called To Safia alexis Crit Value Called By [facility] Crit Value Read Back Y Blood Gas Notified Time 900 Potassium (3.6-5.2) mmol/L Carbon Dioxide (22-30) mmol/L Anion Gap (10-20) BUN (9-20) mg/dL Creatinine (0.8-1.5) mg/dL Est GFR ( Amer) Est GFR (Non-Af Amer) POC Glucose (mg/dL) 90 (65-110) mg/dL Random Glucose (75-110) mg/dL Calcium (8.6-10.4) mg/dl Phosphorus (2.5-4.5) mg/dL Magnesium (1.6-2.3) mg/dL Total Bilirubin (0.2-1.3) mg/dL AST (17-59) U/L ALT (21-72) U/L Alkaline Phosphatase (38-126) U/L Total Protein (6.3-8.3) g/dL Albumin (3.5-5.0) g/dL Globulin (2.2-3.9) gm/dL Albumin/Globulin Ratio (1.0-2.1) Arterial Blood Potassium 4.6 (3.6-5.2) mmol/L Laboratory Results - last 24 hr 12/25/18 12/25/18 12/25/18 06:13 08:55 17:22 WBC RBC Hgb Hct MCV MCH MCHC RDW Plt Count MPV Neut % (Auto) 91.0 H Lymph % (Auto) 8.0 L [place] % (Auto) 1.0 Eos % (Auto) 0.0 Baso % (Auto) 0.0 Neut # (Auto) 8.3 H Lymph # (Auto) 0.7 L [place] # (Auto) 0.1 Eos # (Auto) 0.0 Baso # (Auto) 0.0 Neutrophils % (Manual) 84 H Band Neutrophils % 9 H Lymphocytes % (Manual) 4 L Monocytes % (Manual) 3 Nucleated RBC % 1 H Platelet Estimate Decreased L Poikilocytosis (manual Slight Anisocytosis (manual) Moderate Ovalocytes Slight [place] Cells Slight PT INR APTT Puncture Site [place] pCO2 17 L* pO2 99 HCO3 14.9 L ABG pH 7.37 ABG Total CO2 10.3 L ABG O2 Saturation 99.8 H ABG Base Excess -12.8 L Gregory Test Na ABG Potassium 4.6 A-a O2 Difference 136.0 Respiratory Index 1.4 Sodium 139.0 Chloride 102.0 Glucose 95 Lactate 11.5 H* Liter Flow 4.0 FiO2 36.0 Crit Value Called To Safia alexis Crit Value Called By [facility] Crit Value Read Back Y Blood Gas Notified Time 900 Potassium Carbon Dioxide Anion Gap BUN Creatinine Est GFR ( Amer) Est GFR (Non-Af Amer) POC Glucose (mg/dL) 90 Random Glucose Calcium Phosphorus Magnesium Total Bilirubin AST ALT Alkaline Phosphatase Total Protein Albumin Globulin Albumin/Globulin Ratio Arterial Blood Potassium 4.6 12/25/18 12/25/18 12/26/18 23:32 23:35 06:21 WBC RBC Hgb Hct MCV MCH MCHC RDW Plt Count MPV Neut % (Auto) Lymph % (Auto) [place] % (Auto) Eos % (Auto) Baso % (Auto) Neut # (Auto) Lymph # (Auto) [place] # (Auto) Eos # (Auto) Baso # (Auto) Neutrophils % (Manual) Band Neutrophils % Lymphocytes % (Manual) Monocytes % (Manual) Nucleated RBC % Platelet Estimate Poikilocytosis (manual Anisocytosis (manual) Ovalocytes [place] Cells PT INR APTT Puncture Site pCO2 pO2 HCO3 ABG pH ABG Total CO2 ABG O2 Saturation ABG Base Excess Gregory Test ABG Potassium A-a O2 Difference Respiratory Index Sodium Chloride Glucose Lactate Liter Flow FiO2 Crit Value Called To Crit Value Called By Crit Value Read Back Blood Gas Notified Time Potassium Carbon Dioxide Anion Gap BUN Creatinine Est GFR ( Amer) Est GFR (Non-Af Amer) POC Glucose (mg/dL) 61 L 97 113 H Random Glucose Calcium Phosphorus Magnesium Total Bilirubin AST ALT Alkaline Phosphatase Total Protein Albumin Globulin Albumin/Globulin Ratio Arterial Blood Potassium 12/26/18 12/26/18 12/26/18 06:23 06:23 06:23 WBC 8.2 RBC 2.78 L Hgb 9.1 L Hct 27.0 L MCV 97.1 H MCH 32.7 H MCHC 33.7 RDW 20.7 H Plt Count 41 L MPV 10.8 Neut % (Auto) Lymph % (Auto) [place] % (Auto) Eos % (Auto) Baso % (Auto) Neut # (Auto) Lymph # (Auto) [place] # (Auto) Eos # (Auto) Baso # (Auto) Neutrophils % (Manual) Band Neutrophils % Lymphocytes % (Manual) Monocytes % (Manual) Nucleated RBC % Platelet Estimate Poikilocytosis (manual Anisocytosis (manual) Ovalocytes [place] Cells PT 28.0 H INR 2.6 D APTT 37 H Puncture Site pCO2 pO2 HCO3 ABG pH ABG Total CO2 ABG O2 Saturation ABG Base Excess Gregory Test ABG Potassium A-a O2 Difference Respiratory Index Sodium 137 Chloride 97 L Glucose Lactate Liter Flow FiO2 Crit Value Called To Crit Value Called By Crit Value Read Back Blood Gas Notified Time Potassium 3.8 Carbon Dioxide 22 Anion Gap 22 H BUN 43 H Creatinine 3.1 H Est GFR ( Amer) 24 Est GFR (Non-Af Amer) 20 POC Glucose (mg/dL) Random Glucose 104 D Calcium 7.5 L Phosphorus 4.1 Magnesium 2.2 Total Bilirubin 8.5 H AST 1353 H ALT 235 H Alkaline Phosphatase 620 H Total Protein 5.5 L Albumin 3.2 L Globulin 2.3 Albumin/Globulin Ratio 1.4 Arterial Blood Potassium Radiology Impressions: Radiology Impressions Chest X-Ray 12/25/18 11:44 IMPRESSION: Appears to be mild pulmonary venous congestive changes. Cardiomegaly. Diffuse blastic metastases. Chest X-Ray 12/26/18 07:00 Impression: NG tube extending into the stomach. Other lines and tubes in stable position. Persistent patchy consolidative opacification at the right base. Right hilar prominence. Cardiomegaly. Venous congestion. Dense sclerosis throughout the visualized osseous structures. 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 Poor prognosis. DNR/DNI. Family not quite ready for hospice but states they would like to keep him comfortable. Neuro - GCS 11 - ICU delirium vs metabolic encephalopathy - Morphine 2mg prn for pain Cardio - Shock state (Sepsis vs Cardiogenic) - On dopamine ggt - HFrEF. EF (09/2018) 15-20% - Troponin 0.39>0.35>0.27 - Cardiology consulted, Dr Pan Nephro/ - S/P Urgent HD - Acute Renal Failure w/ metabolic acidosis - R femoral HD cath placed for urgent dialysis which patient had on admission - Nephro consult, Dr. Blevins Pulm -Maintain spO2 >92% -Maintain pH 7.35-7.45 GI - Cirrhosis/Ascites - Possible paracentesis when medically stabilized ID - Sepsis, Lactic acid 4 -Urine growing Pansensitive E Coli / - likely septic shock causing hypotension and renal hypoperfusion -F/u repeat cultures Onc Stage 4 Prostate CA -Off chemotherapy PPx -DVT: c/i 2/2 thrombocytopenia -GI: Protonix 40 IVP Q12 -Dopamine drip -HHD, modified dysphagia: fine-chopped and thin liquids Discussed with Dr. Jj Garay PGY2 <Nico Mcguire - Last Filed: 12/26/18 15:31> CCU Objective - Vital Signs / Intake & Output Vital Signs (Last 4 hours): Vital Signs Pulse 12/26/18 13:54 115 H Intake and Output (Last 8hrs): Intake & Output 12/26/18 12/26/18 12/26/18 06:59 14:59 22:59 Intake Total 221.6 154.9 Balance 221.6 154.9 Weight 154 lb Intake: IV 77 Intake, IV Amount 61.6 17.9 Rt IJ Medial port 61.6 17.9 Tube Feeding 160 60 Other: # Bowel Movements 0 0 - Medications Active Medications: Active Medications Generic Name Dose Route Start Last Admin Trade Name Freq PRN Reason Stop Dose Admin Dextrose 0 ml 12/21/18 12:38 12/25/18 06:42 Dextrose 50% Inj IV 50 ml STAT PRN Administration Hypoglycemia Protocol Protocol Dextrose 0 gm 12/21/18 12:38 Glutose 15 PO ONCE PRN Hypoglycemia Protocol Protocol Glucagon 0 mg 12/21/18 12:38 Glucagen Diagnostic Kit IM STAT PRN Hypoglycemia Protocol Protocol Home Med 1 tab 12/23/18 10:00 12/26/18 10:00 Patient's Own Medication PO 1 tab DAILY JOSÉ MIGUEL Administration Hydrocortisone Sodium Succinate 100 mg 12/22/18 17:00 12/26/18 10:01 Solu-Cortef IV 100 mg Q8H JOSÉ MIGUEL Administration Cefepime HCl 1 gm in 50 mls @ 100 mls/hr 12/21/18 17:45 12/25/18 17:33 Maxipime Iv 1 Gm Premix IVPB 100 mls/hr Q24H JOSÉ MIGUEL Administration Protocol Vasopressin 40 units/ Dextrose 42 mls @ 0.63 mls/hr 12/22/18 05:15 12/26/18 05:15 IV Not Given .Q24H JSOÉ MIGUEL Protocol 0.01 UNITS/MIN Dopamine HCl/Dextrose 400 mg in 250 mls @ 5.239 mls/hr 12/25/18 11:01 12/26/18 08:00 Dopamine 400mg/250ml D5w IV 1.94 mcg/kg/min .Q24H PRN 5.1 mls/hr TITRATE PER MD ORDER Titration Protocol 2 MCG/KG/MIN Levothyroxine Sodium 50 mcg 12/21/18 08:00 12/26/18 06:23 Synthroid PO 50 mcg DAILY@0630 JOSÉ MIGUEL Administration Morphine Sulfate 2 mg 12/26/18 13:57 Morphine IVP Q4 PRN Pain, moderate (4-7) Pantoprazole Sodium 40 mg 12/22/18 09:00 12/26/18 10:01 Protonix Inj IVP 40 mg Q12H JOSÉ MIGUEL Administration Rosuvastatin Calcium 5 mg 12/21/18 22:00 12/25/18 22:00 Crestor PO 5 mg HS JOSÉ MIGUEL Administration Tamsulosin HCl 0.4 mg 12/21/18 10:00 12/26/18 10:01 Flomax PO 0.4 mg DAILY JOSÉ MIGUEL Administration - Patient Studies Lab Studies: Microbiology Studies 12/25/18 13:43 Blood Culture - Preliminary Blood-Venous NO GROWTH AFTER 24 HOURS 12/25/18 13:43 Blood Culture - Preliminary Blood-During Dialysis NO GROWTH AFTER 24 HOURS 12/21/18 05:53 Blood Culture - Final Blood-Venous NO GROWTH AFTER 5 DAYS Gram Stain - Final TEST NOT PERFORMED 12/21/18 05:53 Blood Culture - Final Blood-Venous NO GROWTH AFTER 5 DAYS Gram Stain - Final TEST NOT PERFORMED Lab Studies 12/26/18 12/26/18 12/26/18 Range/Units 14:32 11:15 09:36 WBC (4.8-10.8) K/uL RBC (4.40-5.90) Mil/uL Hgb (12.0-18.0) g/dL Hct (35.0-51.0) % MCV (80.0-94.0) fL MCH (27.0-31.0) pg MCHC (33.0-37.0) g/dL RDW (11.5-14.5) % Plt Count (130-400) K/uL MPV (7.2-11.7) fL Neut % (Auto) (50.0-75.0) % Lymph % (Auto) (20.0-40.0) % [place] % (Auto) (0.0-10.0) % Eos % (Auto) (0.0-4.0) % Baso % (Auto) (0.0-2.0) % Neut # (Auto) (1.8-7.0) K/uL Lymph # (Auto) (1.0-4.3) K/uL [place] # (Auto) (0.0-0.8) K/uL Eos # (Auto) (0.0-0.7) K/uL Baso # (Auto) (0.0-0.2) K/uL Neutrophils % (Manual) (50-75) % Lymphocytes % (Manual) (20-40) % Monocytes % (Manual) (0-10) % Platelet Estimate (NORMAL) Polychromasia Hypochromasia (manual) Anisocytosis (manual) Target Cells PT (9.7-12.2) SECONDS INR APTT (21-34) SECONDS Puncture Site A line Lb pCO2 27 L 37 (35-45) mm/Hg pO2 90 29 L* (80-100) mm/Hg HCO3 24.7 23.7 (21-28) mmol/L ABG pH 7.51 H 7.42 (7.35-7.45) ABG Total CO2 22.3 25.1 (22-28) mmol/L ABG O2 Saturation 99.5 H 55.2 L (95-98) % ABG Base Excess -0.3 -0.2 (-2.0-3.0) mmol/L Gregory Test Na N ABG Potassium 3.8 4.0 (3.6-5.2) mmol/L Glucose 105 103 (75-110) mg/dl Lactate 3.9 H 4.7 H* (0.7-2.1) mmol/L Liter Flow 3.0 3.0 Blood Gas Comments Pos venous Crit Value Called To Dr mcguire Crit Value Called By [place] Crit Value Read Back Y Blood Gas Notified Time 945 Sodium 139.0 140.0 (132-148) mmol/L Potassium (3.6-5.2) mmol/L Chloride 101.0 100.0 (98-107) mmol/L Carbon Dioxide (22-30) mmol/L Anion Gap (10-20) BUN (9-20) mg/dL Creatinine (0.8-1.5) mg/dL Est GFR ( Amer) Est GFR (Non-Af Amer) POC Glucose (mg/dL) (65-110) mg/dL Random Glucose (75-110) mg/dL Calcium (8.6-10.4) mg/dl Phosphorus (2.5-4.5) mg/dL Magnesium (1.6-2.3) mg/dL Total Bilirubin (0.2-1.3) mg/dL AST (17-59) U/L ALT (21-72) U/L Alkaline Phosphatase (38-126) U/L Ammonia 10 (9-33) umol/L Total Protein (6.3-8.3) g/dL Albumin (3.5-5.0) g/dL Globulin (2.2-3.9) gm/dL Albumin/Globulin Ratio (1.0-2.1) Arterial Blood Potassium 3.8 4.0 (3.6-5.2) mmol/L 12/26/18 12/26/18 12/26/18 Range/Units 06:23 06:23 06:23 WBC 8.2 (4.8-10.8) K/uL RBC 2.78 L (4.40-5.90) Mil/uL Hgb 9.1 L (12.0-18.0) g/dL Hct 27.0 L (35.0-51.0) % MCV 97.1 H (80.0-94.0) fL MCH 32.7 H (27.0-31.0) pg MCHC 33.7 (33.0-37.0) g/dL RDW 20.7 H (11.5-14.5) % Plt Count 41 L (130-400) K/uL MPV 10.8 (7.2-11.7) fL Neut % (Auto) 96.0 H (50.0-75.0) % Lymph % (Auto) 2.0 L (20.0-40.0) % [place] % (Auto) 2.0 (0.0-10.0) % Eos % (Auto) 0.0 (0.0-4.0) % Baso % (Auto) 0.0 (0.0-2.0) % Neut # (Auto) 7.9 H (1.8-7.0) K/uL Lymph # (Auto) 0.2 L (1.0-4.3) K/uL [place] # (Auto) 0.2 (0.0-0.8) K/uL Eos # (Auto) 0.0 (0.0-0.7) K/uL Baso # (Auto) 0.0 (0.0-0.2) K/uL Neutrophils % (Manual) 94 H (50-75) % Lymphocytes % (Manual) 2 L (20-40) % Monocytes % (Manual) 4 (0-10) % Platelet Estimate Decreased L (NORMAL) Polychromasia Slight Hypochromasia (manual) Slight Anisocytosis (manual) Slight Target Cells Moderate PT 28.0 H (9.7-12.2) SECONDS INR 2.6 D APTT 37 H (21-34) SECONDS Puncture Site pCO2 (35-45) mm/Hg pO2 (80-100) mm/Hg HCO3 (21-28) mmol/L ABG pH (7.35-7.45) ABG Total CO2 (22-28) mmol/L ABG O2 Saturation (95-98) % ABG Base Excess (-2.0-3.0) mmol/L Grgeory Test ABG Potassium (3.6-5.2) mmol/L Glucose (75-110) mg/dl Lactate (0.7-2.1) mmol/L Liter Flow Blood Gas Comments Crit Value Called To Crit Value Called By Crit Value Read Back Blood Gas Notified Time Sodium 137 (132-148) mmol/L Potassium 3.8 (3.6-5.2) mmol/L Chloride 97 L (98-107) mmol/L Carbon Dioxide 22 (22-30) mmol/L Anion Gap 22 H (10-20) BUN 43 H (9-20) mg/dL Creatinine 3.1 H (0.8-1.5) mg/dL Est GFR ( Amer) 24 Est GFR (Non-Af Amer) 20 POC Glucose (mg/dL) (65-110) mg/dL Random Glucose 104 D (75-110) mg/dL Calcium 7.5 L (8.6-10.4) mg/dl Phosphorus 4.1 (2.5-4.5) mg/dL Magnesium 2.2 (1.6-2.3) mg/dL Total Bilirubin 8.5 H (0.2-1.3) mg/dL AST 1353 H (17-59) U/L ALT 235 H (21-72) U/L Alkaline Phosphatase 620 H (38-126) U/L Ammonia (9-33) umol/L Total Protein 5.5 L (6.3-8.3) g/dL Albumin 3.2 L (3.5-5.0) g/dL Globulin 2.3 (2.2-3.9) gm/dL Albumin/Globulin Ratio 1.4 (1.0-2.1) Arterial Blood Potassium (3.6-5.2) mmol/L 12/26/18 12/25/18 12/25/18 Range/Units 06:21 23:35 23:32 WBC (4.8-10.8) K/uL RBC (4.40-5.90) Mil/uL Hgb (12.0-18.0) g/dL Hct (35.0-51.0) % MCV (80.0-94.0) fL MCH (27.0-31.0) pg MCHC (33.0-37.0) g/dL RDW (11.5-14.5) % Plt Count (130-400) K/uL MPV (7.2-11.7) fL Neut % (Auto) (50.0-75.0) % Lymph % (Auto) (20.0-40.0) % [place] % (Auto) (0.0-10.0) % Eos % (Auto) (0.0-4.0) % Baso % (Auto) (0.0-2.0) % Neut # (Auto) (1.8-7.0) K/uL Lymph # (Auto) (1.0-4.3) K/uL [place] # (Auto) (0.0-0.8) K/uL Eos # (Auto) (0.0-0.7) K/uL Baso # (Auto) (0.0-0.2) K/uL Neutrophils % (Manual) (50-75) % Lymphocytes % (Manual) (20-40) % Monocytes % (Manual) (0-10) % Platelet Estimate (NORMAL) Polychromasia Hypochromasia (manual) Anisocytosis (manual) Target Cells PT (9.7-12.2) SECONDS INR APTT (21-34) SECONDS Puncture Site pCO2 (35-45) mm/Hg pO2 (80-100) mm/Hg HCO3 (21-28) mmol/L ABG pH (7.35-7.45) ABG Total CO2 (22-28) mmol/L ABG O2 Saturation (95-98) % ABG Base Excess (-2.0-3.0) mmol/L Gregory Test ABG Potassium (3.6-5.2) mmol/L Glucose (75-110) mg/dl Lactate (0.7-2.1) mmol/L Liter Flow Blood Gas Comments Crit Value Called To Crit Value Called By Crit Value Read Back Blood Gas Notified Time Sodium (132-148) mmol/L Potassium (3.6-5.2) mmol/L Chloride (98-107) mmol/L Carbon Dioxide (22-30) mmol/L Anion Gap (10-20) BUN (9-20) mg/dL Creatinine (0.8-1.5) mg/dL Est GFR ( Amer) Est GFR (Non-Af Amer) POC Glucose (mg/dL) 113 H 97 61 L (65-110) mg/dL Random Glucose (75-110) mg/dL Calcium (8.6-10.4) mg/dl Phosphorus (2.5-4.5) mg/dL Magnesium (1.6-2.3) mg/dL Total Bilirubin (0.2-1.3) mg/dL AST (17-59) U/L ALT (21-72) U/L Alkaline Phosphatase (38-126) U/L Ammonia (9-33) umol/L Total Protein (6.3-8.3) g/dL Albumin (3.5-5.0) g/dL Globulin (2.2-3.9) gm/dL Albumin/Globulin Ratio (1.0-2.1) Arterial Blood Potassium (3.6-5.2) mmol/L 12/25/18 Range/Units 17:22 WBC (4.8-10.8) K/uL RBC (4.40-5.90) Mil/uL Hgb (12.0-18.0) g/dL Hct (35.0-51.0) % MCV (80.0-94.0) fL MCH (27.0-31.0) pg MCHC (33.0-37.0) g/dL RDW (11.5-14.5) % Plt Count (130-400) K/uL MPV (7.2-11.7) fL Neut % (Auto) (50.0-75.0) % Lymph % (Auto) (20.0-40.0) % [place] % (Auto) (0.0-10.0) % Eos % (Auto) (0.0-4.0) % Baso % (Auto) (0.0-2.0) % Neut # (Auto) (1.8-7.0) K/uL Lymph # (Auto) (1.0-4.3) K/uL [place] # (Auto) (0.0-0.8) K/uL Eos # (Auto) (0.0-0.7) K/uL Baso # (Auto) (0.0-0.2) K/uL Neutrophils % (Manual) (50-75) % Lymphocytes % (Manual) (20-40) % Monocytes % (Manual) (0-10) % Platelet Estimate (NORMAL) Polychromasia Hypochromasia (manual) Anisocytosis (manual) Target Cells PT (9.7-12.2) SECONDS INR APTT (21-34) SECONDS Puncture Site pCO2 (35-45) mm/Hg pO2 (80-100) mm/Hg HCO3 (21-28) mmol/L ABG pH (7.35-7.45) ABG Total CO2 (22-28) mmol/L ABG O2 Saturation (95-98) % ABG Base Excess (-2.0-3.0) mmol/L Gregory Test ABG Potassium (3.6-5.2) mmol/L Glucose (75-110) mg/dl Lactate (0.7-2.1) mmol/L Liter Flow Blood Gas Comments Crit Value Called To Crit Value Called By Crit Value Read Back Blood Gas Notified Time Sodium (132-148) mmol/L Potassium (3.6-5.2) mmol/L Chloride (98-107) mmol/L Carbon Dioxide (22-30) mmol/L Anion Gap (10-20) BUN (9-20) mg/dL Creatinine (0.8-1.5) mg/dL Est GFR ( Amer) Est GFR (Non-Af Amer) POC Glucose (mg/dL) 90 (65-110) mg/dL Random Glucose (75-110) mg/dL Calcium (8.6-10.4) mg/dl Phosphorus (2.5-4.5) mg/dL Magnesium (1.6-2.3) mg/dL Total Bilirubin (0.2-1.3) mg/dL AST (17-59) U/L ALT (21-72) U/L Alkaline Phosphatase (38-126) U/L Ammonia (9-33) umol/L Total Protein (6.3-8.3) g/dL Albumin (3.5-5.0) g/dL Globulin (2.2-3.9) gm/dL Albumin/Globulin Ratio (1.0-2.1) Arterial Blood Potassium (3.6-5.2) mmol/L Laboratory Results - last 24 hr 12/25/18 12/25/18 12/25/18 17:22 23:32 23:35 WBC RBC Hgb Hct MCV MCH MCHC RDW Plt Count MPV Neut % (Auto) Lymph % (Auto) Alger % (Auto) Eos % (Auto) Baso % (Auto) Neut # (Auto) Lymph # (Auto) Alger # (Auto) Eos # (Auto) Baso # (Auto) Neutrophils % (Manual) Lymphocytes % (Manual) Monocytes % (Manual) Platelet Estimate Polychromasia Hypochromasia (manual) Anisocytosis (manual) Target Cells PT INR APTT Puncture Site pCO2 pO2 HCO3 ABG pH ABG Total CO2 ABG O2 Saturation ABG Base Excess Gregory Test ABG Potassium Glucose Lactate Liter Flow Blood Gas Comments Crit Value Called To Crit Value Called By Crit Value Read Back Blood Gas Notified Time Sodium Potassium Chloride Carbon Dioxide Anion Gap BUN Creatinine Est GFR ( Amer) Est GFR (Non-Af Amer) POC Glucose (mg/dL) 90 61 L 97 Random Glucose Calcium Phosphorus Magnesium Total Bilirubin AST ALT Alkaline Phosphatase Ammonia Total Protein Albumin Globulin Albumin/Globulin Ratio Arterial Blood Potassium 12/26/18 12/26/18 12/26/18 06:21 06:23 06:23 WBC 8.2 RBC 2.78 L Hgb 9.1 L Hct 27.0 L MCV 97.1 H MCH 32.7 H MCHC 33.7 RDW 20.7 H Plt Count 41 L MPV 10.8 Neut % (Auto) 96.0 H Lymph % (Auto) 2.0 L Alger % (Auto) 2.0 Eos % (Auto) 0.0 Baso % (Auto) 0.0 Neut # (Auto) 7.9 H Lymph # (Auto) 0.2 L Alger # (Auto) 0.2 Eos # (Auto) 0.0 Baso # (Auto) 0.0 Neutrophils % (Manual) 94 H Lymphocytes % (Manual) 2 L Monocytes % (Manual) 4 Platelet Estimate Decreased L Polychromasia Slight Hypochromasia (manual) Slight Anisocytosis (manual) Slight Target Cells Moderate PT 28.0 H INR 2.6 D APTT 37 H Puncture Site pCO2 pO2 HCO3 ABG pH ABG Total CO2 ABG O2 Saturation ABG Base Excess Gregory Test ABG Potassium Glucose Lactate Liter Flow Blood Gas Comments Crit Value Called To Crit Value Called By Crit Value Read Back Blood Gas Notified Time Sodium Potassium Chloride Carbon Dioxide Anion Gap BUN Creatinine Est GFR ( Amer) Est GFR (Non-Af Amer) POC Glucose (mg/dL) 113 H Random Glucose Calcium Phosphorus Magnesium Total Bilirubin AST ALT Alkaline Phosphatase Ammonia Total Protein Albumin Globulin Albumin/Globulin Ratio Arterial Blood Potassium 12/26/18 12/26/18 12/26/18 06:23 09:36 11:15 WBC RBC Hgb Hct MCV MCH MCHC RDW Plt Count MPV Neut % (Auto) Lymph % (Auto) Alger % (Auto) Eos % (Auto) Baso % (Auto) Neut # (Auto) Lymph # (Auto) Alger # (Auto) Eos # (Auto) Baso # (Auto) Neutrophils % (Manual) Lymphocytes % (Manual) Monocytes % (Manual) Platelet Estimate Polychromasia Hypochromasia (manual) Anisocytosis (manual) Target Cells PT INR APTT Puncture Site Lb A line pCO2 37 27 L pO2 29 L* 90 HCO3 23.7 24.7 ABG pH 7.42 7.51 H ABG Total CO2 25.1 22.3 ABG O2 Saturation 55.2 L 99.5 H ABG Base Excess -0.2 -0.3 Gregory Test N Na ABG Potassium 4.0 3.8 Glucose 103 105 Lactate 4.7 H* 3.9 H Liter Flow 3.0 3.0 Blood Gas Comments Pos venous Crit Value Called To Dr mcguire Crit Value Called By Ta [place] Crit Value Read Back Y Blood Gas Notified Time 945 Sodium 137 140.0 139.0 Potassium 3.8 Chloride 97 L 100.0 101.0 Carbon Dioxide 22 Anion Gap 22 H BUN 43 H Creatinine 3.1 H Est GFR ( Amer) 24 Est GFR (Non-Af Amer) 20 POC Glucose (mg/dL) Random Glucose 104 D Calcium 7.5 L Phosphorus 4.1 Magnesium 2.2 Total Bilirubin 8.5 H AST 1353 H ALT 235 H Alkaline Phosphatase 620 H Ammonia Total Protein 5.5 L Albumin 3.2 L Globulin 2.3 Albumin/Globulin Ratio 1.4 Arterial Blood Potassium 4.0 3.8 12/26/18 14:32 WBC RBC Hgb Hct MCV MCH MCHC RDW Plt Count MPV Neut % (Auto) Lymph % (Auto) Alger % (Auto) Eos % (Auto) Baso % (Auto) Neut # (Auto) Lymph # (Auto) [place] # (Auto) Eos # (Auto) Baso # (Auto) Neutrophils % (Manual) Lymphocytes % (Manual) Monocytes % (Manual) Platelet Estimate Polychromasia Hypochromasia (manual) Anisocytosis (manual) Target Cells PT INR APTT Puncture Site pCO2 pO2 HCO3 ABG pH ABG Total CO2 ABG O2 Saturation ABG Base Excess Gregory Test ABG Potassium Glucose Lactate Liter Flow Blood Gas Comments Crit Value Called To Crit Value Called By Crit Value Read Back Blood Gas Notified Time Sodium Potassium Chloride Carbon Dioxide Anion Gap BUN Creatinine Est GFR ( Amer) Est GFR (Non-Af Amer) POC Glucose (mg/dL) Random Glucose Calcium Phosphorus Magnesium Total Bilirubin AST ALT Alkaline Phosphatase Ammonia 10 Total Protein Albumin Globulin Albumin/Globulin Ratio Arterial Blood Potassium Radiology Impressions: Radiology Impressions Chest X-Ray 12/26/18 07:00 Impression: NG tube extending into the stomach. Other lines and tubes in stable position. Persistent patchy consolidative opacification at the right base. Right hilar prominence. Cardiomegaly. Venous congestion. Dense sclerosis throughout the visualized osseous structures. Assessment/Plan (1) Respiratory insufficiency Current Visit: Yes Status: Acute (2) MAHIN (acute kidney injury) Current Visit: Yes Status: Acute (3) Anemia Current Visit: Yes Status: Acute (4) Opiate overdose Current Visit: Yes Status: Acute (5) UTI (urinary tract infection) Current Visit: Yes Status: Acute (6) Acute exacerbation of CHF (congestive heart failure) Current Visit: No Status: Acute Attending/Attestation - Attestation I have personally seen and examined this patient.: Yes I have fully participated in the care of the patient.: Yes I have reviewed all pertinent clinical information: Yes Notes (Text): 12/26/18 15:30 Patient seen and examined in the intensive care unit. Family requesting DNR/DNI but continue present treatment Taper off pressors as tolerated Continue with hemodialysis Continue IV antibiotics Tolerating feeding Prognosis poor Morphine as needed
--- NOTE | 2018-12-26 15:20 | CP.PCM.PN ---
Subjective - Date & Time of Evaluation Date of Evaluation: 12/26/18 Time of Evaluation: 08:00 - Subjective Subjective: weak lethargic NAD afebrile BP still low on pressors Objective - Vital Signs/Intake and Output Vital Signs (last 24 hours): Temp Pulse Resp BP Pulse Ox 96 F L 115 H 20 108/66 100 12/26/18 08:00 12/26/18 13:54 12/26/18 09:08 12/26/18 09:08 12/26/18 08:08 Intake and Output: 12/26/18 12/26/18 06:59 18:59 Intake Total 368.4 154.9 Balance 368.4 154.9 - Medications Medications: Current Medications Dextrose (Dextrose 50% Inj) 0 ml IV STAT PRN; Protocol PRN Reason: Hypoglycemia Protocol Last Admin: 12/25/18 06:42 Dose: 50 ml Dextrose (Glutose 15) 0 gm PO ONCE PRN; Protocol PRN Reason: Hypoglycemia Protocol Glucagon (Glucagen Diagnostic Kit) 0 mg IM STAT PRN; Protocol PRN Reason: Hypoglycemia Protocol Home Med (Patient's Own Medication) 1 tab PO DAILY [facility] Last Admin: 12/26/18 10:00 Dose: 1 tab Hydrocortisone Sodium Succinate (Solu-Cortef) 100 mg IV Q8H JOSÉ MIGUEL Last Admin: 12/26/18 10:01 Dose: 100 mg Cefepime HCl (Maxipime Iv 1 Gm Premix) 1 gm in 50 mls @ 100 mls/hr IVPB Q24H JOSÉ MIGUEL; Protocol Last Admin: 12/25/18 17:33 Dose: 100 mls/hr Vasopressin 40 units/ Dextrose 42 mls @ 0.63 mls/hr IV .Q24H JOSÉ MIGUEL; Protocol Last Admin: 12/26/18 05:15 Dose: Not Given Dopamine HCl/Dextrose (Dopamine 400mg/250ml D5w) 400 mg in 250 mls @ 5.239 mls/hr IV .Q24H PRN; Protocol PRN Reason: TITRATE PER MD ORDER Last Titration: 12/26/18 08:00 Dose: 1.94 mcg/kg/min, 5.1 mls/hr Levothyroxine Sodium (Synthroid) 50 mcg PO DAILY@0630 [facility] Last Admin: 12/26/18 06:23 Dose: 50 mcg Morphine Sulfate (Morphine) 2 mg IVP Q4 PRN PRN Reason: Pain, moderate (4-7) Pantoprazole Sodium (Protonix Inj) 40 mg IVP Q12H [facility] Last Admin: 12/26/18 10:01 Dose: 40 mg Rosuvastatin Calcium (Crestor) 5 mg PO HS [facility] Last Admin: 12/25/18 22:00 Dose: 5 mg Tamsulosin HCl (Flomax) 0.4 mg PO DAILY [facility] Last Admin: 12/26/18 10:01 Dose: 0.4 mg - Labs Labs: 12/26/18 06:23 12/26/18 06:23 PT 28.0 SECONDS (9.7-12.2) H 12/26/18 06:23 INR 2.6 D 12/26/18 06:23 APTT 37 SECONDS (21-34) H 12/26/18 06:23 - Constitutional Appears: No Acute Distress, Confused, Cachectic, Chronically Ill - Head Exam Head Exam: ATRAUMATIC, NORMOCEPHALIC - Eye Exam Eye Exam: Scleral icterus - ENT Exam ENT Exam: Mucous Membranes Dry, Normal External Ear Exam - Neck Exam Neck Exam: absent: Lymphadenopathy - Respiratory Exam Respiratory Exam: Decreased Breath Sounds, Prolonged Expiratory Phase, Rhonchi - Cardiovascular Exam Cardiovascular Exam: Tachycardia, REGULAR RHYTHM, +S1, +S2 - GI/Abdominal Exam GI & Abdominal Exam: Distended, Soft, Diminished Bowel Sounds Additional comments: + ascites - Rectal Exam Rectal Exam: Deferred - Exam Exam: NORMAL INSPECTION - Extremities Exam Extremities Exam: Pedal Edema - Back Exam Back Exam: absent: CVA tenderness (L), paraspinal tenderness - Neurological Exam Neurological Exam: Altered - Psychiatric Exam Psychiatric exam: Depressed - Skin Skin Exam: Dry Assessment and Plan (1) UTI (urinary tract infection) Status: Acute (2) MAHIN (acute kidney injury) Status: Acute (3) Anemia Status: Acute (4) Opiate overdose Status: Acute (5) Abdominal distension Status: Acute (6) Acute exacerbation of CHF (congestive heart failure) Status: Acute (7) Afib Status: Acute (8) Anasarca Status: Acute (9) Ascites Status: Acute (10) CHF (congestive heart failure) Status: Acute (11) Elevated brain natriuretic peptide (BNP) level Status: Acute (12) Malignant ascites Status: Acute (13) Pain from bone metastases Status: Acute (14) Prostate CA Status: Acute (15) Severe back pain Status: Acute (16) Stage IV adenocarcinoma of prostate Status: Acute (17) HTN (hypertension) Status: Chronic (18) History of coronary artery disease Status: Chronic (19) History of prostate cancer Status: Chronic - Assessment and Plan (Free Text) Assessment: IV rx renewed prognosis poor cont supportive care DNR/DNI
[2018-12-26] MEDS: Cefepime IV 1 gm in Dextrose 1 GM/50 ML BAG IVPB SCH (18:15)
--- NOTE | 2018-12-26 22:58 | PN ---
DATE: 12/26/2018 LOCATION: ICU 17. SUBJECTIVE: This is a 78-year-old male, seen very early in rounds. Appeared to be somewhat lethargic with NG tube in place with reported one episode of vomiting of feeding material. Case was discussed with the staff at the bedside. The entire chart is reviewed including but not limited to the most recent lab and radiology study results, current and the previous medication lists, current and the previous medical events. Case was discussed with the staff at length. Today's lab showed white blood cells 8.2, hemoglobin 9.1, hematocrit 27 with thrombocytopenia of 41 and abnormal ABGs with a BUN of 43, creatinine 3.1, calcium 7.4, total bilirubin 8.5, AST 1353, ALT 235, alkaline phosphatase 620 with albumin of 3.2. Most recently done chest x-ray official report is seen with evidence of pneumonia and cardiomegaly as well as venous congestion. PHYSICAL EXAMINATION: General: A 78-year-old male, somewhat lethargic and nonverbal, on low dose of dopamine IV. VITAL SIGNS: The patient is afebrile with heart rate of 114, blood pressure of 100/60, on nasal cannula. Respiratory rate 20 to 22. HEENT: Showed pale, dry oral mucous membranes, nonicteric sclerae. LUNGS: Few scattered crepitation. Decreased air entry at bases. HEART: Positive S1 and S2 with increased rate. ABDOMEN: Soft with mild distention, mild generalized tenderness. No mass or organomegaly. No rebound tenderness or guarding. IMPRESSION: 1. Abnormal liver function tests that could be secondary to drug-induced chemical hepatitis, acute with early phase of hepatic failure with renal failure. The possibility of hepatorenal syndrome was raised in early stage. 2. Metabolic acidosis. 3. Anemia, secondary to chronic disease versus gastrointestinal blood loss. 4. Reported drug overdose of pain killer by recent history which could induce hepatocellular injury and abnormal liver function tests with early state of hepatic failure. 5. Jaundice secondary to above. 6. Multiple past medical histories including hypertension, congestive heart failure, coronary artery disease, osteoarthritis. 7. Pneumonia with cardiomegaly by radiology study results. 8. Evidence of portal hypertension with ascites. SUGGESTIONS: 1. Continue supportive treatment. 2. MRCP if possible. 3. Antireflux measures. 4. Further recommendation to follow. Halle Tran MD [facility] # [id number]
--- NOTE | 2018-12-27 00:24 | CP.PCM.PN ---
Subjective - Date & Time of Evaluation Date of Evaluation: 12/26/18 Time of Evaluation: 07:00 - Subjective Subjective: dict Objective - Vital Signs/Intake and Output Vital Signs (last 24 hours): Temp Pulse Resp BP Pulse Ox 96.9 F L 119 H 18 103/62 100 12/26/18 18:45 12/27/18 00:00 12/27/18 00:00 12/26/18 23:44 12/27/18 00:00 Intake and Output: 12/26/18 12/27/18 18:59 06:59 Intake Total 666.9 73.1 Output Total 0 Balance 666.9 73.1 - Medications Medications: Current Medications Dextrose (Dextrose 50% Inj) 0 ml IV STAT PRN; Protocol PRN Reason: Hypoglycemia Protocol Last Admin: 12/25/18 06:42 Dose: 50 ml Dextrose (Glutose 15) 0 gm PO ONCE PRN; Protocol PRN Reason: Hypoglycemia Protocol Glucagon (Glucagen Diagnostic Kit) 0 mg IM STAT PRN; Protocol PRN Reason: Hypoglycemia Protocol Home Med (Patient's Own Medication) 1 tab PO DAILY [facility] Last Admin: 12/26/18 10:00 Dose: 1 tab Hydrocortisone Sodium Succinate (Solu-Cortef) 100 mg IV Q8H JOSÉ MIGUEL Last Admin: 12/27/18 00:05 Dose: 100 mg Cefepime HCl (Maxipime Iv 1 Gm Premix) 1 gm in 50 mls @ 100 mls/hr IVPB Q24H JOSÉ MIGUEL; Protocol Last Admin: 12/26/18 18:15 Dose: 100 mls/hr Vasopressin 40 units/ Dextrose 42 mls @ 0.63 mls/hr IV .Q24H JOSÉ MIGUEL; Protocol Last Admin: 12/26/18 05:15 Dose: Not Given Dopamine HCl/Dextrose (Dopamine 400mg/250ml D5w) 400 mg in 250 mls @ 5.239 mls/hr IV .Q24H PRN; Protocol PRN Reason: TITRATE PER MD ORDER Last Titration: 12/26/18 13:00 Dose: 2.93 mcg/kg/min, 7.7 mls/hr Levothyroxine Sodium (Synthroid) 50 mcg PO DAILY@0630 [facility] Last Admin: 12/26/18 06:23 Dose: 50 mcg Morphine Sulfate (Morphine) 2 mg IVP Q4 PRN PRN Reason: Pain, moderate (4-7) Pantoprazole Sodium (Protonix Inj) 40 mg IVP Q12H JOSÉ MIGUEL Last Admin: 12/26/18 21:33 Dose: 40 mg Rosuvastatin Calcium (Crestor) 5 mg PO HS [facility] Last Admin: 12/26/18 21:33 Dose: Not Given Tamsulosin HCl (Flomax) 0.4 mg PO DAILY [facility] Last Admin: 12/26/18 10:01 Dose: 0.4 mg - Labs Labs: 12/26/18 06:23 12/26/18 06:23 PT 28.0 SECONDS (9.7-12.2) H 12/26/18 06:23 INR 2.6 D 12/26/18 06:23 APTT 37 SECONDS (21-34) H 12/26/18 06:23
--- NOTE | 2018-12-27 05:00 | PN ---
DATE: 12/26/2018 SUBJECTIVE: The patient is weak. He is drowsy and he is lethargic. The patient is . His family was informed of his situation. A palliative care consult has been done. The patient is really at the end of his life. He is sick. He is terminal. He is dialyzing with no response. PHYSICAL EXAMINATION: VITAL SIGNS: Blood pressure 103/62, pulse 120 irregularly irregular, respiratory rate 20, temperature 98. LUNGS: Bilateral crepitation all over the lung garcia. CARDIOVASCULAR SYSTEM: S1, S2, plus S3, irregularly irregular. ABDOMEN: Soft, positive ascites. ASSESSMENT: 1. Severe dilated cardiomyopathy with atrial fibrillation with congestive heart failure. 2. Acute kidney injury on top of chronic kidney disease, on hemodialysis. 3. Urinary tract infection septicemia. PLAN: The patient is DNR/DNI. The patient is terminal and at the end of his life for care. Gregory Thrasher MD
[2018-12-27] MEDS: Vasopressin 40 UNITS in Dextrose 5% In Water 40 ML IV SCH (06:06)
[2018-12-27] MEDS: Levothyroxine 50 MCG TAB PO SCH (06:07)
[2018-12-27 06:17] LABS: BASO % 0.3 % (0.0-2.0); HEMOGLOBIN 9.1 g/dL (12.0-18.0); LYMPH # 0.3 K/uL (1.0-4.3); LYMPH % 3.9 % (20.0-40.0); MEAN CORPUSCULAR HEMOGLOBIN 32.9 pg (27.0-31.0); MEAN CORPUSCULAR HGB CONC 34.3 g/dL (33.0-37.0); MEAN PLATELET VOLUME 10.5 fL (7.2-11.7); MONO # 0.6 K/uL (0.0-0.8); MONO % 6.4 % (0.0-10.0); NEUT % 89.4 % (50.0-75.0); NRBC % 3.3 % (0.0-2.0); PLATELET COUNT 45 K/uL (130-400); RBC 2.76 Mil/uL (4.40-5.90); RED CELL DISTRIBUTION WIDTH 20.7 % (11.5-14.5)
[2018-12-27 06:36] LABS: CALCIUM 7.4 mg/dl (8.6-10.4)
[2018-12-27] MEDS: DOPamine 400mg/250ml D5W 400 MG/250 ML BAG IV PRN (08:29)
[2018-12-27 08:52] LABS: ANISOCYTOSIS SLIGHT; BANDS 3 % (0-2); HYPOCHROMIC SLIGHT; LYMPHOCYTE 5 % (20-40); MONOCYTE 2 % (0-10); NEUTROPHIL 90 % (50-75); PLATELET ESTIMATE DECREASED (NORMAL); TOTAL CELLS COUNTED 100
[2018-12-27 08:53] LABS: POLYCHROMIC SLIGHT; TARGET CELLS SLIGHT
[2018-12-27] MEDS: BICALUTAMIDE 50 MG PO SCH (10:03)
[2018-12-27] MEDS ORDERED: Sodium Chloride 0.9% 250 ML IV ONE (10:28)
--- NOTE | 2018-12-27 11:18 | CP.PCM.PN ---
Subjective - Date & Time of Evaluation Date of Evaluation: 12/27/18 Time of Evaluation: 09:10 - Subjective Subjective: Nephro Progress Note for Dr. Blevins Service Sky Hassan DO, IM PGY-3 Patient seen and examined in the ICU. Somnolent/unresponsive this AM, not opening eyes to verbal or physical stimuli. Lactate improved yesterday, and anion gap almost resolved now, but remains ill. Now off dopamine, but boderline low BPs overnight and this AM. Made DNR/DNI by family yesterday, as per ICU resident family wants to avoid any aggressive interventions but will continue with current care otherwise. Objective - Vital Signs/Intake and Output Vital Signs (last 24 hours): Temp Pulse Resp BP Pulse Ox 97.9 F 119 H 23 85/51 L 100 12/27/18 08:00 12/27/18 10:00 12/27/18 10:00 12/27/18 09:43 12/27/18 10:00 Intake and Output: 12/27/18 12/27/18 06:59 18:59 Intake Total 142.4 170.6 Balance 142.4 170.6 - Medications Medications: Current Medications Dextrose (Dextrose 50% Inj) 0 ml IV STAT PRN; Protocol PRN Reason: Hypoglycemia Protocol Last Admin: 12/25/18 06:42 Dose: 50 ml Dextrose (Glutose 15) 0 gm PO ONCE PRN; Protocol PRN Reason: Hypoglycemia Protocol Glucagon (Glucagen Diagnostic Kit) 0 mg IM STAT PRN; Protocol PRN Reason: Hypoglycemia Protocol Home Med (Patient's Own Medication) 1 tab PO DAILY [facility] Last Admin: 12/27/18 10:03 Dose: Not Given Hydrocortisone Sodium Succinate (Solu-Cortef) 100 mg IV Q8H JOSÉ MIGUEL Last Admin: 12/27/18 08:37 Dose: 100 mg Cefepime HCl (Maxipime Iv 1 Gm Premix) 1 gm in 50 mls @ 100 mls/hr IVPB Q24H JOSÉ MIGUEL; Protocol Last Admin: 12/26/18 18:15 Dose: 100 mls/hr Vasopressin 40 units/ Dextrose 42 mls @ 0.63 mls/hr IV .Q24H JOSÉ MIGUEL; Protocol Last Admin: 12/27/18 06:06 Dose: Not Given Dopamine HCl/Dextrose (Dopamine 400mg/250ml D5w) 400 mg in 250 mls @ 5.239 mls/hr IV .Q24H PRN; Protocol PRN Reason: TITRATE PER MD ORDER Last Admin: 12/27/18 08:29 Dose: 2.93 mcg/kg/min, 7.7 mls/hr Levothyroxine Sodium (Synthroid) 50 mcg PO DAILY@0630 [facility] Last Admin: 12/27/18 06:07 Dose: Not Given Morphine Sulfate (Morphine) 2 mg IVP Q4 PRN PRN Reason: Pain, moderate (4-7) Pantoprazole Sodium (Protonix Inj) 40 mg IVP Q12H [facility] Last Admin: 12/27/18 08:37 Dose: 40 mg Rosuvastatin Calcium (Crestor) 5 mg PO HS [facility] Last Admin: 12/26/18 21:33 Dose: Not Given Tamsulosin HCl (Flomax) 0.4 mg PO DAILY [facility] Last Admin: 12/27/18 10:03 Dose: Not Given - Labs Labs: 12/27/18 06:06 12/27/18 06:06 PT 28.0 SECONDS (9.7-12.2) H 12/26/18 06:23 INR 2.6 D 12/26/18 06:23 APTT 37 SECONDS (21-34) H 12/26/18 06:23 - Additional Findings Additional findings: - Constitutional Appears: Chronically Ill, Somnolent/Unresponsive - Head Exam Head Exam: ATRAUMATIC, NORMAL INSPECTION, NORMOCEPHALIC - Eye Exam Eye Exam: slight scleral icterus. absent: Conjunctival injection - ENT Exam ENT Exam: Mucous Membranes Dry - Neck Exam Neck exam: Positive for: Normal Inspection. Negative for: Lymphadenopathy - Respiratory Exam Respiratory Exam: clear to auscultation, no wheezes/rales/ronchi, no accessory muscle use, no respiratory distress, still on 4L supplemental O2 via NC - Cardiovascular Exam Cardiovascular Exam: Tachycardia, regular rhythm, +S1, +S2, prominent L neck JVD. absent: Bradycardia, Irregular Rhythm - GI/Abdominal Exam 0GI & Abdominal Exam: Diminished Bowel Sounds, Firm but not rigid. absent: Distended, Hyperactive Bowel Sounds, Hypoactive Bowel Sounds, Normal Bowel Sounds - Extremities Exam Extremities exam: Positive for: pedal pulses present. 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 Nephro consulted for acutely elevated Cr concerning for renal failure. Plan: 1) acute renal failure 2) Opiate overdose requiring Narcan - UDS negative but reported responsive immediately after Narcan 3) Shock requiring pressor support Septic vs Cardiogenic 4) Cirrhosis with ascites 5) HFrEF (15-20%) 6) Stage IV prostate Ca with spinal mets 7) Acidosis with worsening lactate - improved 8) Afib 9) Acutely worsening LFTs -likely renal failure is 2/2 shock state, suspect infectious component and hypovolemic component, possible ATN Cr 5.5 on admission, 3.8today Oxygenation remains stable on ABG, sats good on 4L NC S/p HD yesterday, 1L UF removed, plan for another 1-1.5L removal today Net positive ~5L this admission Off Dopamine, but low BP overnight, will bolus 250cc and reassess -Initial Urine Cx notable for alvarez-sensitive E coli, new blood cultures negative at 48hrs -Elevated trop likely 2/2 renal leak +/- myocardial ischemia 2/2 hypoperfusion, resolved Need echo to rule out cardiac effusion/tamponade, pending -Lactate improved to 3.9 and gap closing, but still worsening hepatic function, still altered Abd US negative for hepatic masses, so less likely mets from prostate Ca, pending CT abd/pelvis Possible worsening sepsis, pending repeat blood cultures ABG show pH 7.60 today, if further HD session will need less Bicarb in bath, avoid further use of bicarb at this time -Now DNR/DNI as per family, family wants to avoid aggressive measures, but have not committed to comfort care/hospice yet, will continue to follow Patient reviewed and discussed with attending, Dr. Blevins
[2018-12-27] MEDS ORDERED: Morphine Sulfate 250 MG in Dextrose 5% In Water 240 ML IV PRN (11:43)
--- NOTE | 2018-12-27 11:55 | PN ---
DATE: 12/27/2018 LOCATION: ICU 17. SUBJECTIVE: This is a 78-year-old male seen early in rounds in the intensive care today. Case discussed at length with the staff and the patient became in a state of DNR and DNI. No reported recent history of active GI bleeding, chest pain or palpitation. However, the patient is not responding well to any verbal stimuli. The entire chart is reviewed including but not limited to the most recent lab and radiology study results, current and the previous medication list, current and the previous medical events. The patient is post fresh-frozen plasma transfusions. LABORATORY DATA: Today's lab results showed hemoglobin 9.1, hematocrit 26.5 with platelet count of 45 with reported abnormal ABGs before. BUN is 57, creatinine 3.8. Glucose 132, calcium 7.4 with subsequent elevation of ALT and AST and alkaline phosphatase. For the ALT, low albumin due to malnutrition. PHYSICAL EXAMINATION: GENERAL: This is a 78-year-old male. VITAL SIGNS: Afebrile with heart rate of 116, blood pressure 96/62, respiratory rate 20-24. HEENT: Showed pale, dry oral mucous membrane, slight icteric sclerae. LUNGS: Few scattered crepitation. Decreased air entry at bases. HEART: Positive S1 and S2. ABDOMEN: Soft with mild generalized tenderness. No mass or organomegaly. No rebound tenderness or guarding. EXTREMITIES: With lower extremity edematous changes. No clubbing or cyanosis. NEUROLOGIC: No reported new neurological deficits, sensory or motor. ASSESSMENT: 1. 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 2. Acute renal failure. 3. Metabolic acidosis. 4. Cardiomegaly. 5. Urinary tract infection with urosepsis likely. 6. Reported drug overdose on pain killer by recent history and jaundice secondary to above. 7. Multiple past medical history including but not limited to congestive heart failure, coronary artery disease, hypertension with recent history of pneumonia 8. Evidence of portal hypertension with ascites secondary to liver cirrhosis. SUGGESTION: 1. Continue supportive treatment. 2. No need for aggressive GI workup at this point. 3. If the patient has severe thrombocytopenia, repeat CBC post fresh-frozen plasma transfusion. Further recommendation to follow. Halle Tran MD
[2018-12-27] MEDS ORDERED: SODIUM CHLORIDE 0.9% IV PRN (12:00)
[2018-12-27] MEDS ORDERED: MORPHINE IV PRN (12:00)
[2018-12-27] MEDS ORDERED: Morphine 100 MG in Sodium Chloride 0.9% 90 ML IV PRN (12:00)
--- NOTE | 2018-12-27 12:03 | CP.PCM.PN ---
<Ramiro Jenkins - Last Filed: 12/27/18 12:03> Subjective - Date & Time of Evaluation Date of Evaluation: 12/27/18 Time of Evaluation: 11:59 - Subjective Subjective: Pulm Progress Note for Dr. Gardner's service S/E at bedside AAOx1 at best Lethargic and does not respond to any questioning although prompted and motivated Family discussion recommended to determine goals of care Objective - Vital Signs/Intake and Output Vital Signs (last 24 hours): Temp Pulse Resp BP Pulse Ox 97.9 F 119 H 23 85/51 L 100 12/27/18 08:00 12/27/18 10:00 12/27/18 10:00 12/27/18 09:43 12/27/18 10:00 Intake and Output: 12/27/18 12/27/18 06:59 18:59 Intake Total 142.4 170.6 Balance 142.4 170.6 - Medications Medications: Current Medications Dopamine HCl/Dextrose (Dopamine 400mg/250ml D5w) 400 mg in 250 mls @ 5.239 mls/hr IV .Q24H PRN; Protocol PRN Reason: TITRATE PER MD ORDER Last Admin: 12/27/18 08:29 Dose: 2.93 mcg/kg/min, 7.7 mls/hr Morphine Sulfate 100 mg/ (Sodium Chloride) 100 mls @ 5 mls/hr IV .Q20H PRN; Protocol PRN Reason: Pain, moderate (4-7) - Labs Labs: 12/27/18 06:06 12/27/18 06:06 PT 28.0 SECONDS (9.7-12.2) H 12/26/18 06:23 INR 2.6 D 12/26/18 06:23 APTT 37 SECONDS (21-34) H 12/26/18 06:23 - Additional Findings Additional findings: - Constitutional Appears: Chronically Ill, Somnolent/Unresponsive - Head Exam Head Exam: ATRAUMATIC, NORMAL INSPECTION, NORMOCEPHALIC - Eye Exam Eye Exam: slight scleral icterus. absent: Conjunctival injection - ENT Exam ENT Exam: Mucous Membranes Dry - Neck Exam Neck exam: Positive for: Normal Inspection. Negative for: Lymphadenopathy - Respiratory Exam Respiratory Exam: clear to auscultation, no wheezes/rales/ronchi, no accessory muscle use, no respiratory distress, still on 4L supplemental O2 via NC - Cardiovascular Exam Cardiovascular Exam: Tachycardia, regular rhythm, +S1, +S2 absent: Bradycardia, Irregular Rhythm - GI/Abdominal Exam 0GI & Abdominal Exam: Diminished Bowel Sounds, Firm but not rigid. absent: Distended, Hyperactive Bowel Sounds, Hypoactive Bowel Sounds, Normal Bowel Sounds - Extremities Exam Extremities exam: Positive for: pedal pulses present. 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 Pulm consulted for sob Plan: Acute renal failure Opiate overdose requiring Narcan Shock requiring pressor support Septic vs Cardiogenic Cirrhosis with ascites HFrEF (15-20%) Stage IV prostate Ca with spinal mets Acidosis with worsening lactate Afib Acutely worsening LFTs P: Continue HD sessions as per nephro (ATN concern) bp support as per icu IV abx as per ID for UTI, + cx for E coli; new bcx pending Advanced cancer with minimal mental status improvement Disucssion is recommended with family for goals of care DNR/DNI currently All further management as per ICU PGY-1 Ramiro Jenkins Case d/w Dr. Gardner <Nico Gardner S - Last Filed: 12/27/18 17:55> Objective - Vital Signs/Intake and Output Vital Signs (last 24 hours): Temp Pulse Resp BP Pulse Ox 97.7 F 123 H 19 68/36 L 99 12/27/18 17:00 12/27/18 17:00 12/27/18 17:00 12/27/18 16:09 12/27/18 12:00 Intake and Output: 12/27/18 12/27/18 06:59 18:59 Intake Total 142.4 227.7 Balance 142.4 227.7 - Medications Medications: Current Medications Morphine Sulfate 100 mg/ (Sodium Chloride) 100 mls @ 5 mls/hr IV .Q20H PRN; Protocol PRN Reason: Pain, moderate (4-7) Last Admin: 12/27/18 12:17 Dose: 5 mls/hr - Labs Labs: 12/27/18 06:06 12/27/18 06:06 PT 28.0 SECONDS (9.7-12.2) H 12/26/18 06:23 INR 2.6 D 12/26/18 06:23 APTT 37 SECONDS (21-34) H 12/26/18 06:23 Assessment and Plan (1) Respiratory insufficiency Status: Acute (2) MAHIN (acute kidney injury) Status: Acute (3) Anemia Status: Acute (4) Opiate overdose Status: Acute (5) UTI (urinary tract infection) Status: Acute (6) Acute exacerbation of CHF (congestive heart failure) Status: Acute Attending/Attestation - Attestation I have personally seen and examined this patient.: Yes I have fully participated in the care of the patient.: Yes I have reviewed all pertinent clinical information, including history, physical exam and plan: Yes Notes (Text): 12/27/18 17:54 patient seen and examined Assessment and plan as per resident note
[2018-12-27 12:44] VITALS: O2SAT 99
--- NOTE | 2018-12-27 12:54 | CP.PCM.PN ---
Subjective - Date & Time of Evaluation Date of Evaluation: 12/27/18 Time of Evaluation: 12:51 - Subjective Subjective: Patient is very lethargic, looking uncomfortable, agitated with labored breathing. NGT is out. O2via NC. Family at bed side. Doctor Anna Marie suggested cessation of all current treatments and initiation of comfort measures only. I was called b the ICU nurse to discuss it with family at bed side. Objective - Vital Signs/Intake and Output Vital Signs (last 24 hours): Temp Pulse Resp BP Pulse Ox 96.1 F L 117 H 28 H 102/52 L 99 12/27/18 12:00 12/27/18 12:00 12/27/18 12:00 12/27/18 11:54 12/27/18 12:00 Intake and Output: 12/27/18 12/27/18 06:59 18:59 Intake Total 142.4 193.7 Balance 142.4 193.7 - Medications Medications: Current Medications Morphine Sulfate 100 mg/ (Sodium Chloride) 100 mls @ 5 mls/hr IV .Q20H PRN; Protocol PRN Reason: Pain, moderate (4-7) Last Admin: 12/27/18 12:17 Dose: 5 mls/hr - Labs Labs: 12/27/18 06:06 12/27/18 06:06 PT 28.0 SECONDS (9.7-12.2) H 12/26/18 06:23 INR 2.6 D 12/26/18 06:23 APTT 37 SECONDS (21-34) H 12/26/18 06:23 - Constitutional Appears: In Acute Distress, Chronically Ill - Head Exam Head Exam: ATRAUMATIC, NORMAL INSPECTION, NORMOCEPHALIC - Eye Exam Additional comments: clera yellow - ENT Exam ENT Exam: Mucous Membranes Dry - Neck Exam Neck Exam: Normal Inspection - Respiratory Exam Respiratory Exam: Accessory Muscle Use, Respiratory Distress - Cardiovascular Exam Cardiovascular Exam: Tachycardia, Irregular Rhythm - GI/Abdominal Exam GI & Abdominal Exam: Distended, Firm, Hypoactive Bowel Sounds - Rectal Exam Rectal Exam: Deferred - Exam Additional comments: anuria - Extremities Exam Extremities Exam: Pedal Edema - Back Exam Back Exam: NORMAL INSPECTION - Neurological Exam Neurological Exam: Altered Neuro motor strength exam: Left Upper Extremity: 2/1, Right Upper Extremity: 2/1, Left Lower Extremity: 2/1, Right Lower Extremity: 10/12 - Psychiatric Exam Psychiatric exam: Agitated - Skin Skin Exam: Dry, Pallor Assessment and Plan - Assessment and Plan (Free Text) Assessment: Goals of care discussed with and the niece at bed side. I found them crying. was especially stressed out and at the edge of losing self control due to sadness and sorrow. Niece expressed family's agreement to initiate Comfort measures as suggested by Doctor Anna Marie . Niece communicated to me that daughter Teresita was in agreement as well. appeared overwhelmed with grief and concerns about patient's discomfort and insisted we make him comfortable right now. I reviewed that purpose of comfort measures was to ease the symptoms and promote natural . and niece stated understanding. I discussed this to ICU team and Morphine drip was ordered. I shared this back to the family at bed side. Impression * Acute respiratory distress 2nd to advanced liver cirrhosis * lethargy * Unresponsiveness * patient is entering end stage of his life very fast and may during the day * at bed side advocating for comfort and natural Suggestion * Would stop all current medical interventions and diagnostic studies * Morphine drip for acute respiratory distress * Support family and reassure of patient's comfort * pastoral care for Spiritual support Advance care planing 30 min Palliative care will sign off at this time.
--- NOTE | 2018-12-27 13:55 | CP.CCUPN ---
<Nitish Broussard - Last Filed: 12/27/18 14:02> CCU Subjective - Physician Review Subjective (Free Text): 12/24/18 14:46 PGY-1 Critical Care Progeress Note for Patient seen and examined at bedside. No acute events overnight. Patient made comfort care today per family wishes. All medications stopped except morphine drip for pain control. CCU Objective - Vital Signs / Intake & Output Vital Signs (Last 4 hours): Vital Signs Temp Pulse Resp BP Pulse Ox 12/27/18 12:00 96.1 F L 117 H 28 H 99 12/27/18 11:54 95.7 F L 125 H 29 H 102/52 L 97 12/27/18 11:43 96.1 F L 125 H 22 95/59 L 95 12/27/18 11:00 93.7 F L 117 H 22 94 L 12/27/18 10:43 95.0 F L 119 H 24 91/67 L 98 12/27/18 10:00 119 H 23 100 Intake and Output (Last 8hrs): Intake & Output 12/26/18 12/27/18 12/27/18 22:59 06:59 14:59 Intake Total 466.6 61.6 193.7 Balance 466.6 61.6 193.7 Weight 153 lb 11.2 oz Intake: IV 147.5 Intake, IV Amount 161.6 61.6 46.2 Rt IJ Medial port 61.6 61.6 46.2 Rt IJ TLC Proximal port 100 Oral 0 Blood Product 305 Other: # Voids Urine, Voided 0 # Bowel Movements 0 0 0 - Physical Exam Head: Positive for: Atraumatic, Normocephalic Pupils: Positive for: PERRL Conjunctiva: Positive for: Normal Mouth: Positive for: Moist Mucous Membranes Neck: Positive for: Normal Range of Motion Respiratory/Chest: Positive for: Clear to Auscultation, Good Air Exchange. Negative for: Respiratory Distress, Accessory Muscle Use Cardiovascular: Positive for: Regular Rate and Rhythm, Normal S1, S2 Abdomen: Positive for: Distention, Normal Bowel Sounds. Negative for: Tenderness, Peritoneal Signs Upper Extremity: Positive for: Normal Inspection. Negative for: Cyanosis Lower Extremity: Positive for: Normal Inspection. Negative for: Edema Psychiatric: Positive for: Alert - Medications Active Medications: Active Medications Generic Name Dose Route Start Last Admin Trade Name Freq PRN Reason Stop Dose Admin Morphine Sulfate 100 mg/ 100 mls @ 5 mls/hr 12/27/18 12:00 12/27/18 12:17 Sodium Chloride IV 5 mls/hr .Q20H PRN Administration Pain, moderate (4-7) Protocol - Patient Studies Lab Studies: Microbiology Studies 12/25/18 13:43 Blood Culture - Preliminary Blood-During Dialysis NO GROWTH AFTER 48 HOURS 12/25/18 13:43 Blood Culture - Preliminary Blood-Venous NO GROWTH AFTER 48 HOURS Lab Studies 12/27/18 12/27/18 12/26/18 Range/Units 06:06 06:06 14:32 WBC 9.0 (4.8-10.8) K/uL RBC 2.76 L (4.40-5.90) Mil/uL Hgb 9.1 L (12.0-18.0) g/dL Hct 26.5 L (35.0-51.0) % MCV 96.0 H (80.0-94.0) fL MCH 32.9 H (27.0-31.0) pg MCHC 34.3 (33.0-37.0) g/dL RDW 20.7 H (11.5-14.5) % Plt Count 45 L (130-400) K/uL MPV 10.5 (7.2-11.7) fL Neut % (Auto) 89.4 H (50.0-75.0) % Lymph % (Auto) 3.9 L (20.0-40.0) % [place] % (Auto) 6.4 (0.0-10.0) % Eos % (Auto) 0.0 (0.0-4.0) % Baso % (Auto) 0.3 (0.0-2.0) % Neut # (Auto) 8.0 H (1.8-7.0) K/uL Lymph # (Auto) 0.3 L (1.0-4.3) K/uL [place] # (Auto) 0.6 (0.0-0.8) K/uL Eos # (Auto) 0.0 (0.0-0.7) K/uL Baso # (Auto) 0.0 (0.0-0.2) K/uL Neutrophils % (Manual) 90 H (50-75) % Band Neutrophils % 3 H (0-2) % Lymphocytes % (Manual) 5 L (20-40) % Monocytes % (Manual) 2 (0-10) % Platelet Estimate Decreased L (NORMAL) Polychromasia Slight Hypochromasia (manual) Slight Anisocytosis (manual) Slight Target Cells Slight Sodium 141 (132-148) mmol/L Potassium 3.8 (3.6-5.2) mmol/L Chloride 101 (98-107) mmol/L Carbon Dioxide 24 (22-30) mmol/L Anion Gap 20 (10-20) BUN 57 H (9-20) mg/dL Creatinine 3.8 H (0.8-1.5) mg/dL Est GFR ( Amer) 19 Est GFR (Non-Af Amer) 16 Random Glucose 132 H D (75-110) mg/dL Calcium 7.4 L (8.6-10.4) mg/dl Ammonia 10 (9-33) umol/L Laboratory Results - last 24 hr 12/26/18 12/27/18 12/27/18 14:32 06:06 06:06 WBC 9.0 RBC 2.76 L Hgb 9.1 L Hct 26.5 L MCV 96.0 H MCH 32.9 H MCHC 34.3 RDW 20.7 H Plt Count 45 L MPV 10.5 Neut % (Auto) 89.4 H Lymph % (Auto) 3.9 L [place] % (Auto) 6.4 Eos % (Auto) 0.0 Baso % (Auto) 0.3 Neut # (Auto) 8.0 H Lymph # (Auto) 0.3 L [place] # (Auto) 0.6 Eos # (Auto) 0.0 Baso # (Auto) 0.0 Neutrophils % (Manual) 90 H Band Neutrophils % 3 H Lymphocytes % (Manual) 5 L Monocytes % (Manual) 2 Platelet Estimate Decreased L Polychromasia Slight Hypochromasia (manual) Slight Anisocytosis (manual) Slight Target Cells Slight Sodium 141 Potassium 3.8 Chloride 101 Carbon Dioxide 24 Anion Gap 20 BUN 57 H Creatinine 3.8 H Est GFR ( Amer) 19 Est GFR (Non-Af Amer) 16 Random Glucose 132 H D Calcium 7.4 L Ammonia 10 Fingerstick Blood Sugar Results: 79 Review of Systems - Review of Systems Systems not reviewed;Unavailable: Altered Mental Status All systems: reviewed and no additional remarkable complaints except Assessment/Plan - Assessment and Plan (Free Text) Assessment: Patient made comfort care today as per family wishes. All medications stopped except morphine drip for pain control. Patient is DNR/DNI, documented in patient chart and EMR. <Giuseppe Tapia - Last Filed: 12/27/18 17:06> CCU Objective - Vital Signs / Intake & Output Vital Signs (Last 4 hours): Vital Signs Temp Pulse Resp BP 12/27/18 17:00 97.7 F 123 H 19 12/27/18 16:09 97.3 F L 128 H 17 68/36 L 12/27/18 16:00 97.3 F L 131 H 21 68/36 L 12/27/18 15:38 96.6 F L 125 H 19 199/167 H 12/27/18 15:00 94.6 F L 131 H 23 12/27/18 14:00 94.8 F L 120 H 24 Intake and Output (Last 8hrs): Intake & Output 12/27/18 12/27/18 12/27/18 06:59 14:59 22:59 Intake Total 61.6 206.7 21 Balance 61.6 206.7 21 Weight 153 lb 11.2 oz Intake: IV 147.5 Intake, IV Amount 61.6 59.2 21 Rt IJ Medial port 61.6 59.2 21 Oral 0 0 Other: # Voids Urine, Voided 0 0 # Bowel Movements 0 0 0 - Medications Active Medications: Active Medications Generic Name Dose Route Start Last Admin Trade Name Freq PRN Reason Stop Dose Admin Morphine Sulfate 100 mg/ 100 mls @ 5 mls/hr 12/27/18 12:00 12/27/18 12:17 Sodium Chloride IV 5 mls/hr .Q20H PRN Administration Pain, moderate (4-7) Protocol - Patient Studies Lab Studies: Microbiology Studies 12/25/18 13:43 Blood Culture - Preliminary Blood-During Dialysis NO GROWTH AFTER 48 HOURS 12/25/18 13:43 Blood Culture - Preliminary Blood-Venous NO GROWTH AFTER 48 HOURS Lab Studies 12/27/18 12/27/18 Range/Units 06:06 06:06 WBC 9.0 (4.8-10.8) K/uL RBC 2.76 L (4.40-5.90) Mil/uL Hgb 9.1 L (12.0-18.0) g/dL Hct 26.5 L (35.0-51.0) % MCV 96.0 H (80.0-94.0) fL MCH 32.9 H (27.0-31.0) pg MCHC 34.3 (33.0-37.0) g/dL RDW 20.7 H (11.5-14.5) % Plt Count 45 L (130-400) K/uL MPV 10.5 (7.2-11.7) fL Neut % (Auto) 89.4 H (50.0-75.0) % Lymph % (Auto) 3.9 L (20.0-40.0) % [place] % (Auto) 6.4 (0.0-10.0) % Eos % (Auto) 0.0 (0.0-4.0) % Baso % (Auto) 0.3 (0.0-2.0) % Neut # (Auto) 8.0 H (1.8-7.0) K/uL Lymph # (Auto) 0.3 L (1.0-4.3) K/uL [place] # (Auto) 0.6 (0.0-0.8) K/uL Eos # (Auto) 0.0 (0.0-0.7) K/uL Baso # (Auto) 0.0 (0.0-0.2) K/uL Neutrophils % (Manual) 90 H (50-75) % Band Neutrophils % 3 H (0-2) % Lymphocytes % (Manual) 5 L (20-40) % Monocytes % (Manual) 2 (0-10) % Platelet Estimate Decreased L (NORMAL) Polychromasia Slight Hypochromasia (manual) Slight Anisocytosis (manual) Slight Target Cells Slight Sodium 141 (132-148) mmol/L Potassium 3.8 (3.6-5.2) mmol/L Chloride 101 (98-107) mmol/L Carbon Dioxide 24 (22-30) mmol/L Anion Gap 20 (10-20) BUN 57 H (9-20) mg/dL Creatinine 3.8 H (0.8-1.5) mg/dL Est GFR ( Amer) 19 Est GFR (Non-Af Amer) 16 Random Glucose 132 H D (75-110) mg/dL Calcium 7.4 L (8.6-10.4) mg/dl Laboratory Results - last 24 hr 12/27/18 12/27/18 06:06 06:06 WBC 9.0 RBC 2.76 L Hgb 9.1 L Hct 26.5 L MCV 96.0 H MCH 32.9 H MCHC 34.3 RDW 20.7 H Plt Count 45 L MPV 10.5 Neut % (Auto) 89.4 H Lymph % (Auto) 3.9 L [place] % (Auto) 6.4 Eos % (Auto) 0.0 Baso % (Auto) 0.3 Neut # (Auto) 8.0 H Lymph # (Auto) 0.3 L [place] # (Auto) 0.6 Eos # (Auto) 0.0 Baso # (Auto) 0.0 Neutrophils % (Manual) 90 H Band Neutrophils % 3 H Lymphocytes % (Manual) 5 L Monocytes % (Manual) 2 Platelet Estimate Decreased L Polychromasia Slight Hypochromasia (manual) Slight Anisocytosis (manual) Slight Target Cells Slight Sodium 141 Potassium 3.8 Chloride 101 Carbon Dioxide 24 Anion Gap 20 BUN 57 H Creatinine 3.8 H Est GFR ( Amer) 19 Est GFR (Non-Af Amer) 16 Random Glucose 132 H D Calcium 7.4 L Radiology Impressions: Radiology Impressions Chest X-Ray 12/27/18 10:28 IMPRESSION: Cardiomegaly with suspect concomitant pulmonary venous congestion. Areas of coalescent pulmonary venous congestion with or without infiltrates are a consideration. Other findings as above. Attending/Attestation - Attestation I have personally seen and examined this patient.: Yes I have fully participated in the care of the patient.: Yes I have reviewed all pertinent clinical information: Yes Notes (Text): 12/27/18 17:05 I have seen and examined the patient. Medical records, lab studies, and imaging were reviewed by me and a management plan was formulated on multidisciplinary rounds with resident Dr. Broussard. I agree with their documented assessment and plan. family has decided to withdraw care, patient made comfort care and withdrawn from life support with a morphine drip for comfort. DNR/DNI, can be downgraded to the medical floors. Critical Care Time 35 minutes. Multi-disciplinary rounds were performed with house staff, nursing, speech therapy, respiratory therapy, pharmacy and nutrition with integrated input from the primary team/attending and other consulting services. The documented time is cumulative and includes review of patient data/exams/labs/chart review and examination of the patient on rounds and throughout the day; time is exclusive of any procedures or teaching time.
--- NOTE | 2018-12-27 15:55 | CP.PCM.PN ---
"<Farida Weller - Last Filed: 12/27/18 16:41> Subjective - Date & Time of Evaluation Date of Evaluation: 12/27/18 Time of Evaluation: 01:00 - Subjective Subjective: Patient seen and examined at bedside. No overnight events reported. ROS unabled to be obtained due to patients mental status. Patient placed on comfort care. Objective - Vital Signs/Intake and Output Vital Signs (last 24 hours): Temp Pulse Resp BP Pulse Ox 94.8 F L 120 H 24 102/52 L 99 12/27/18 14:00 12/27/18 14:00 12/27/18 14:00 12/27/18 11:54 12/27/18 12:00 Intake and Output: 12/27/18 12/27/18 06:59 18:59 Intake Total 142.4 206.7 Balance 142.4 206.7 - Medications Medications: Current Medications Morphine Sulfate 100 mg/ (Sodium Chloride) 100 mls @ 5 mls/hr IV .Q20H PRN; Protocol PRN Reason: Pain, moderate (4-7) Last Admin: 12/27/18 12:17 Dose: 5 mls/hr - Labs Labs: 12/27/18 06:06 12/27/18 06:06 PT 28.0 SECONDS (9.7-12.2) H 12/26/18 06:23 INR 2.6 D 12/26/18 06:23 APTT 37 SECONDS (21-34) H 12/26/18 06:23 - Additional Findings Additional findings: - Constitutional Appears: Toxic, Cachectic, Chronically Ill - Head Exam Head Exam: ATRAUMATIC, NORMAL INSPECTION - Eye Exam Eye Exam: PERRL - ENT Exam ENT Exam: Mucous Membranes Moist - Neck Exam Neck Exam: absent: Normal Inspection (JVD) - Respiratory Exam Respiratory Exam: Rales. absent: Wheezes - Cardiovascular Exam Cardiovascular Exam: JVD, +S1, +S2, Murmur - GI/Abdominal Exam GI & Abdominal Exam: Distended, Soft - Extremities Exam Extremities Exam: Pedal Edema (+1) - Neurological Exam Neurological Exam: Awake. absent: Alert, Oriented x3 - Psychiatric Exam Psychiatric exam: Flat Affect - Skin Skin Exam: Normal Color, Warm Assessment and Plan - Assessment and Plan (Free Text) Assessment: 78 years old male with Arthritis (KNEE), CAD, CHF, Gastritis, Gall Bladder Disease, HTN, Prostate Ca stage IV; Liver Cirrhosis; Hypothyroidism; Umbilical hernia; A Fib who presents due to opiate overdose. Cardiology consulted for SOB, anemia, and CHF Hx Plan: A-Fib | HFrEF| SOB | HTN | CAD| NSTEMI | Macrocytic Anemia|Shock (Sepsis vs Cardiogenic) DDx: Shock (Cardiogenic vs Septic), NSTEMI ECHO (09/2018): Severe LV systolic dysfunction, Dilated LA and LV, Mild to moderate AR, Mild to moderate MR. Troponins 0.3950-->0.3570--->0.2760 | BNP elevated at 69,400 | TSH elevated | Stool Occult Blood - NEGATIVE Mgmt: Correct any Electrolyte abnormalities Consider increased Synthroid. Although increased TSH could be subclinical. Consider repeating Free T3/T4 Hold Amiodarone 200mg po Daily due Hypotension. Patient currently on Pressors Elevated Troponin likely due to Renal Failure vs Type II SC vs mixed. Hold Home Lasix 20mg PO daily ECHO to rule out possible pericardial effusion per Nephro. Life Jacket Consider Psychiatry consult. 1:1 Strict I/O's Transfuse PRN. Ammonia Lvl Consider Head imaging. Consider Starting Levophed. Dispo: Patient placed on comfort care. Consider head imaging and myxedema coma workup. Patient discussed with Attending Farida Weller, PGY-2 <Romulo Pan - Last Filed: 12/27/18 20:08> Objective - Vital Signs/Intake and Output Vital Signs (last 24 hours): Temp Pulse Resp BP Pulse Ox 97.3 F L 98 H 11 L 76/33 L 99 12/27/18 19:00 12/27/18 19:00 12/27/18 19:00 12/27/18 18:22 12/27/18 12:00 Intake and Output: 12/27/18 12/28/18 18:59 06:59 Intake Total 241.7 Balance 241.7 - Medications Medications: Current Medications Morphine Sulfate 100 mg/ (Sodium Chloride) 100 mls @ 5 mls/hr IV .Q20H PRN; Protocol PRN Reason: Pain, moderate (4-7) Last Admin: 12/27/18 12:17 Dose: 5 mls/hr - Labs Labs: 12/27/18 06:06 12/27/18 06:06 PT 28.0 SECONDS (9.7-12.2) H 12/26/18 06:23 INR 2.6 D 12/26/18 06:23 APTT 37 SECONDS (21-34) H 12/26/18 06:23 Assessment and Plan - Assessment and Plan (Free Text) Plan: Patient seen and evaluated personally by me. Plan of care d/w the chief medical director and as documented"
--- NOTE | 2018-12-27 16:42 | RAD ---
Date of service: 12/27/2018 HISTORY: assess for volume overload COMPARISON: 12/26/2018 TECHNIQUE: 1 view obtained. FINDINGS: LUNGS: Vague increased opacity right base patchy developing infiltrate here 1 consideration some increased opacity here present previously. Overall bronchovascular markings appear abnormally course. These appear similar PLEURA: No significant pleural effusion identified, no pneumothorax apparent. CARDIOVASCULAR: No aortic atherosclerotic calcification present. Cardiomegaly similar. Concomitant pulmonary venous congestion with some coalescence suspect. Right internal jugular vein catheter tip in superior vena cava. OSSEOUS STRUCTURES: Diffuse increased osseous sclerosis.-can be seen with diffuse osseous blastic metastases Correlate clinically VISUALIZED UPPER ABDOMEN: Normal. OTHER FINDINGS: None. IMPRESSION: Cardiomegaly with suspect concomitant pulmonary venous congestion. Areas of coalescent pulmonary venous congestion with or without infiltrates are a consideration. Other findings as above.
[2018-12-27 20:09] VITALS: BP 55/28
--- NOTE | 2018-12-27 21:50 | CP.PCM.PRO ---
Pronouncement of Note - Clinical Findings Physical Exam: No Response Verbal/Painful Stimuli, Absent Peripheral Puls es{Carotid & Femoral}, Absent Heart & Breath Sounds, No Pupillary Light Reflex, No Corneal Reflex, Pupils Fixed & Dilated, Absence of Vital Signs - Pronouncement Time Time of Pronouncement of : 21:35 - Notifications Pronouncement Notifications: Family Notified, Atending Notified Capital Project Engineer Notified: No - Autopsy Autopsy Requested: No - [place] [id number]
[2018-12-27 21:57] VITALS: PULSE 69; RESP 11; TEMP 98.8
--- NOTE | 2018-12-28 00:54 | CP.PCM.PN ---
Subjective - Date & Time of Evaluation Date of Evaluation: 12/27/18 Time of Evaluation: 09:25 - Subjective Subjective: dict Objective - Vital Signs/Intake and Output Vital Signs (last 24 hours): Temp Pulse Resp BP Pulse Ox 98.8 F 69 11 L 55/28 L 99 12/27/18 21:00 12/27/18 21:00 12/27/18 21:00 12/27/18 19:37 12/27/18 12:00 Intake and Output: 12/27/18 12/28/18 18:59 06:59 Intake Total 241.7 10 Balance 241.7 10 - Medications Medications: Current Medications Morphine Sulfate 100 mg/ (Sodium Chloride) 100 mls @ 5 mls/hr IV .Q20H PRN; Protocol PRN Reason: Pain, moderate (4-7) Last Admin: 12/27/18 12:17 Dose: 5 mls/hr - Labs Labs: 12/27/18 06:06 12/27/18 06:06 PT 28.0 SECONDS (9.7-12.2) H 12/26/18 06:23 INR 2.6 D 12/26/18 06:23 APTT 37 SECONDS (21-34) H 12/26/18 06:23
--- NOTE | 2018-12-28 03:32 | PN ---
DATE: 12/28/2018 SUBJECTIVE: I discussed the case with patient's who was at the bedside. The patient is in multiorgan failure including liver failure, kidney failure, congestive heart failure. The patient is septic with urinary tract infection with stage IV metastasis. Given patient's multiple medical problems, poor prognosis, advancing age, the patient was advised for palliative care, supportive care, and comfort measures only, and the patient's medication were withheld. The patient was placed on supportive care. PHYSICAL EXAMINATION: VITAL SIGNS: Blood pressure 155/28, pulse 98, respiratory rate 27, temperature 97.3. LUNGS: Bilateral basal crepitation. CARDIOVASCULAR SYSTEM: S1, S2. Regular. ABDOMEN: Soft, nontender. Bowel sounds are positive. ASSESSMENT: 1. Multiorgan failure. 2. Cirrhosis of liver. 3. Prostatic cancer, metastatic. 4. Urinary tract infection. PLAN: End of life care, monitor the patient. Gregory Thrasher MD
--- NOTE | 2018-12-28 05:18 | CON ---
DATE: 12/24/2018 LOCATION: The patient is in ICU 17. That is from Dr. Tran to Dr. Gregory Thrasher MD I was called for GI consultation by the admitting medical team. The patient is seen and fully examined on 12/24/[address] Thrasher. The entire chart is reviewed including but not limited to the most recent lab and radiology study results, current and the previous medication lists, current and the previous medical events, allergy to medication list as well as all the available current and the previous medical records. Case was discussed with the staff at length before and immediately after my GI consultation on 12/24/2018, and a short handwritten consultation sheet left in the chart at that time. HISTORY OF PRESENT ILLNESS: This is a 78-year-old male, very well-known case for me from previous admission, was initially admitted to the hospital through the emergency room with generalized weakness and malaise and lethargy, was apparently after taking large amount of pain killer medication, after was found by his on the floor. The patient was somewhat less responding post admission to verbal stimuli and no reported active GI bleeding but episodes of abdominal pain and diarrhea as per the record prior to his admission. PAST MEDICAL HISTORY: Including but not limited to, 1. Peptic ulcer disease. 2. Gallbladder disease. 3. Hypertension, congestive heart failure, coronary artery disease. 4. Osteoarthritis. 5. Prostatic CA stage IV as per the record. 6. Alcoholism with alcoholic liver disease, portal hypertension and ascites. 7. The patient had recurrent abdominal paracentesis recently due to his refractory ascites. FAMILY HISTORY: Unknown. SOCIAL HISTORY: No reported recent history of alcohol intake or smoking. CURRENT MEDICATIONS: Post-admission medication lists were reviewed. ALLERGIES TO MEDICATIONS: UNKNOWN. Most recently, blood workup showed normal white blood cells but hemoglobin 9.5, hematocrit 28.9 with thrombocytopenia of 58 with reported increased PT to 23.5, PTT 35 with abnormal ABGs. Potassium of 5.5, CO2 content of 12 indicative of metabolic acidosis with increased BUN of 70, creatinine 5.3, calcium 7, blood glucose level of 81 with increased AST of 1081, ALT 206, alkaline phosphatase of 507 with low albumin and low total protein indicative of alcoholic liver disease. No cancer markers were ordered. Most recently done chest x-ray official report is seen with evidence of pneumonia. NG tube is in place for medication and nutritional support. PHYSICAL EXAMINATION: GENERAL: A 78-year-old male, appeared to be somewhat lethargic, without reported complaint of significant shortness of breath, chest pain, or active GI bleeding. VITAL SIGNS: The patient was febrile at the time he was seen by me with heart rate of 92, respiratory rate of 18 to 20, blood pressure of 100/54. HEENT: Showed pale, dry oral mucous membrane, nonicteric sclerae. LYMPH NODES: No lymphadenitis or lymphadenopathy. LUNGS: Few scattered crepitation. Decreased air entry at bases. HEART: Positive S1 and S2. ABDOMEN: Soft with mild generalized tenderness. No mass or organomegaly. No rebound tenderness or guarding. EXTREMITIES: Without significant edema, clubbing or cyanosis. NEUROLOGIC: No reported new neurological deficits, sensory or motor. IMPRESSION: 1. Acute chemical hepatitis with hepatic failure associated with renal failure. 2. Alcoholic liver disease by history, liver cirrhosis, evidence of portal hypertension with refractory ascites before. 3. Reported drug overdose of pain killer intake recently. 4. Anemia secondary to above. 5. Multiple past medical history including but not limited to stage IV prostatic carcinoma, metabolic acidosis, recurrent urinary tract infection with possible urosepsis recently. 6. Known history of hypertension, congestive heart failure, coronary artery disease with osteoarthritis. 7. Metabolic acidosis secondary to above as well as urinary tract infection and possible septicemia. SUGGESTIONS: 1. Agree with your plan. 2. Peripheral hyperalimentation. 3. Proton pump inhibitors. Abdominal ultrasound. Cancer markers including alpha fetoprotein and CEA. 4. May add MRCP as needed if the liver enzymes continue to be higher. 5. Repeat hepatitis profile. 6. No aggressive GI workup in the meantime until the patient is more stable clinically. Further recommendation to follow. Halle Tran MD
--- NOTE | 2018-12-28 22:56 | CP.PCM.DIS ---
Provider - Provider Date of Admission: 12/21/18 04:40 Attending physician: Gregory Thrasher MD Consults: 12/21/18 05:51 Critical Care Consult Routine Comment: Consulting Provider: Mele Clemens Consulting Physician: Mele Clemens Reason for Consult: persistent hypotension/ code sepsis 12/21/18 07:00 Cardiology Consult Routine Comment: Consulting Provider: Romulo Pan Consulting Physician: Romulo Pan Reason for Consult: SOB, anemia Pulmonology Consult Routine Comment: Consulting Provider: Nico Gardner Consulting Physician: Nico Gardner Reason for Consult: SOB, anemia 12/21/18 08:26 Social Work Referral ONCE Comment: Hx CA, liver cirrhosis Physician Instructions: Reason For Exam: new ICU admission, CA 12/21/18 09:28 Nursing Referral for Palliative Care Routine Comment: Physician Instructions: Reason For Exam: New ICU Admit, CA, Liver cirrhosis, bedbound 12/21/18 09:36 Palliative Care Consult Routine Comment: Consulting Provider: Edda Quiros Physician Instructions: TO Jj FRANCO Reason For Exam: goals of care, lung cancer 12/21/18 09:38 Case Management Referral Routine Comment: Physician Instructions: Reason For Exam: New ICU admission, CA, liver cirrhosis, bedbound a Reason for Referral: Discharge Planning 12/21/18 11:23 Inpatient PERSONNEL ADVISER Core Measures Referral Routine Comment: Physician Instructions: Reason For Exam: Hx CHF, malignancy, liver cirrhosis 12/21/18 12:21 Nephrology Consult Routine Comment: Consulting Provider: Kar Blevins Consulting Physician: Kar Blevins Reason for Consult: Acute renal failure 12/21/18 12:42 Palliative Care Consult Routine Comment: Consulting Provider: Edda Quiros Physician Instructions: Reason For Exam: cirrhosis, ECHF stage IV 12/21/18 17:10 Infectious Disease Consult Routine Comment: Consulting Provider: David Garcia Consulting Physician: David Garcia Reason for Consult: bhavesh pus in urine, bandemia 12/24/18 10:51 Gastroenterology Consult Routine Comment: Consulting Provider: Halle Dill Consulting Physician: Halle Dill Reason for Consult: liver cirrhosis Time Spent in preparation of Discharge (in minutes): 30 Hospital Course - Lab Results Lab Results: Micro Results 12/25/18 13:43 Blood-During Dialysis Blood Culture - Preliminary Yeast Species 12/25/18 13:43 Blood-During Dialysis Gram Stain - Final 12/25/18 13:43 Blood-Venous Blood Culture - Preliminary Yeast Species 12/25/18 13:43 Blood-Venous Gram Stain - Final 12/21/18 05:53 Blood-Venous Blood Culture - Final NO GROWTH AFTER 5 DAYS 12/21/18 05:53 Blood-Venous Gram Stain - Final TEST NOT PERFORMED 12/21/18 05:53 Blood-Venous Blood Culture - Final NO GROWTH AFTER 5 DAYS 12/21/18 05:53 Blood-Venous Gram Stain - Final TEST NOT PERFORMED 12/21/18 09:41 Stool Stool Culture - Final NO SALMONELLA, SHIGELLA OR CAMPYLOBACTER ISOLATED. 12/21/18 14:48 Urine,Orellana Urine Culture - Final Escherichia Coli 12/21/18 08:51 Nose MRSA Culture (Admit) - Final MRSA NOT DETECTED Most Recent Lab Values WBC 9.0 K/uL (4.8-10.8) 12/27/18 06:06 RBC 2.76 Mil/uL (4.40-5.90) L 12/27/18 06:06 Hgb 9.1 g/dL (12.0-18.0) L 12/27/18 06:06 Hct 26.5 % (35.0-51.0) L 12/27/18 06:06 MCV 96.0 fL (80.0-94.0) H 12/27/18 06:06 MCH 32.9 pg (27.0-31.0) H 12/27/18 06:06 MCHC 34.3 g/dL (33.0-37.0) 12/27/18 06:06 RDW 20.7 % (11.5-14.5) H 12/27/18 06:06 Plt Count 45 K/uL (130-400) L 12/27/18 06:06 MPV 10.5 fL (7.2-11.7) 12/27/18 06:06 Neut % (Auto) 89.4 % (50.0-75.0) H 12/27/18 06:06 Lymph % (Auto) 3.9 % (20.0-40.0) L 12/27/18 06:06 [place] % (Auto) 6.4 % (0.0-10.0) 12/27/18 06:06 Eos % (Auto) 0.0 % (0.0-4.0) 12/27/18 06:06 Baso % (Auto) 0.3 % (0.0-2.0) 12/27/18 06:06 Neut # (Auto) 8.0 K/uL (1.8-7.0) H 12/27/18 06:06 Lymph # (Auto) 0.3 K/uL (1.0-4.3) L 12/27/18 06:06 [place] # (Auto) 0.6 K/uL (0.0-0.8) 12/27/18 06:06 Eos # (Auto) 0.0 K/uL (0.0-0.7) 12/27/18 06:06 Baso # (Auto) 0.0 K/uL (0.0-0.2) 12/27/18 06:06 Neutrophils % (Manual) 90 % (50-75) H 12/27/18 06:06 Band Neutrophils % 3 % (0-2) H 12/27/18 06:06 Lymphocytes % (Manual) 5 % (20-40) L 12/27/18 06:06 Reactive Lymphs % 1 % (0-0) H 12/21/18 12:23 Monocytes % (Manual) 2 % (0-10) 12/27/18 06:06 Myelocytes % 1 % (0-0) H 12/21/18 12:23 Nucleated RBC % 1 % (0-0) H 12/25/18 06:13 Platelet Estimate Decreased (NORMAL) L 12/27/18 06:06 Large Platelets Present 12/23/18 05:18 Polychromasia Slight 12/27/18 06:06 Hypochromasia (manual) Slight 12/27/18 06:06 Poikilocytosis (manual Slight 12/25/18 06:13 Anisocytosis (manual) Slight 12/27/18 06:06 Macrocytosis (manual) Moderate 12/23/18 05:18 Target Cells Slight 12/27/18 06:06 Tear Drop Cells Slight 12/21/18 12:23 Ovalocytes Slight 12/25/18 06:13 Keira Cells Slight 12/25/18 06:13 Acanthocytes (Spur) Slight 12/23/18 05:18 Retic Count 0.4 % (0.5-1.5) L 12/21/18 17:06 Haptoglobin 292.0 mg/dL (30.0-200.0) H 12/21/18 17:06 PT 28.0 SECONDS (9.7-12.2) H 12/26/18 06:23 INR 2.6 D 12/26/18 06:23 APTT 37 SECONDS (21-34) H 12/26/18 06:23 Puncture Site A line 12/26/18 11:15 pCO2 27 mm/Hg (35-45) L 12/26/18 11:15 pO2 90 mm/Hg (80-100) 12/26/18 11:15 HCO3 24.7 mmol/L (21-28) 12/26/18 11:15 ABG pH 7.51 (7.35-7.45) H 12/26/18 11:15 ABG Total CO2 22.3 mmol/L (22-28) 12/26/18 11:15 ABG O2 Saturation 99.5 % (95-98) H 12/26/18 11:15 ABG Base Excess -0.3 mmol/L (-2.0-3.0) 12/26/18 11:15 ABG Hemoglobin 9.0 g/dL (11.7-17.4) L 12/24/18 05:23 ABG Carboxyhemoglobin 1.7 % (0.5-1.5) H 12/24/18 05:23 POC ABG HHb (Measured) 1.4 % (0.0-5.0) 12/24/18 05:23 ABG Methemoglobin 0.2 % (0.0-3.0) 12/24/18 05:23 Gregory Test Na 12/26/18 11:15 ABG Potassium 3.8 mmol/L (3.6-5.2) 12/26/18 11:15 VBG pH 7.32 (7.32-7.43) 12/22/18 14:50 VBG pCO2 36 mmHg (40-60) L 12/22/18 14:50 VBG HCO3 18.7 mmol/L 12/22/18 14:50 VBG Total CO2 19.6 mmol/L (22-28) L 12/22/18 14:50 VBG O2 Sat (Calc) 72.0 % (40-65) H 12/22/18 14:50 VBG Base Excess -6.9 mmol/L (0.0-2.0) L 12/22/18 14:50 VBG Potassium 4.7 mmol/L (3.6-5.2) 12/22/18 14:50 A-a O2 Difference 136.0 mm/Hg 12/25/18 08:55 Respiratory Index 1.4 12/25/18 08:55 Hgb O2 Saturation 96.8 % (95.0-98.0) 12/24/18 05:23 Sodium 139.0 mmol/l (132-148) 12/26/18 11:15 Chloride 101.0 mmol/L (98-107) 12/26/18 11:15 Glucose 105 mg/dl (75-110) 12/26/18 11:15 Lactate 3.9 mmol/L (0.7-2.1) H 12/26/18 11:15 Liter Flow 3.0 12/26/18 11:15 Vent Mode Bipap 12/22/18 18:42 Mechanical Rate 12 12/22/18 18:42 FiO2 36.0 % 12/25/18 08:55 Inspiratory BiPAP 12 12/22/18 18:42 Expiratory BiPAP 6 12/22/18 18:42 Blood Gas Comments Pos venous 12/26/18 09:36 Crit Value Called To Dr gardner 12/26/18 09:36 Crit Value Called By Ta montana 12/26/18 09:36 Crit Value Read Back Y 12/26/18 09:36 Blood Gas Notified Time 945 12/26/18 09:36 Sodium 141 mmol/L (132-148) 12/27/18 06:06 Potassium 3.8 mmol/L (3.6-5.2) 12/27/18 06:06 Chloride 101 mmol/L (98-107) 12/27/18 06:06 Carbon Dioxide 24 mmol/L (22-30) 12/27/18 06:06 Anion Gap 20 (10-20) 12/27/18 06:06 BUN 57 mg/dL (9-20) H 12/27/18 06:06 Creatinine 3.8 mg/dL (0.8-1.5) H 12/27/18 06:06 Est GFR ( Amer) 19 12/27/18 06:06 Est GFR (Non-Af Amer) 16 12/27/18 06:06 POC Glucose (mg/dL) 113 mg/dL (65-110) H 12/26/18 06:21 Random Glucose 132 mg/dL (75-110) H D 12/27/18 06:06 Serum Osmolality 317 mosm/kg (272-300) H 12/21/18 15:15 Lactic Acid 2.9 mmol/L (0.7-2.1) H 12/22/18 20:17 Uric Acid 8.1 mg/dL (3.5-8.5) 12/21/18 17:06 Calcium 7.4 mg/dl (8.6-10.4) L 12/27/18 06:06 Phosphorus 4.1 mg/dL (2.5-4.5) 12/26/18 06:23 Magnesium 2.2 mg/dL (1.6-2.3) 12/26/18 06:23 Iron 55 ug/dL (49-181) 12/21/18 17:06 TIBC 211 ug/dL (250-450) L 12/21/18 17:06 % Saturation 26 (20-55) 12/21/18 17:06 Ferritin 754.0 ng/mL 12/21/18 17:06 Total Bilirubin 8.5 mg/dL (0.2-1.3) H 12/26/18 06:23 AST 1353 U/L (17-59) H 12/26/18 06:23 ALT 235 U/L (21-72) H 12/26/18 06:23 Alkaline Phosphatase 620 U/L (38-126) H 12/26/18 06:23 Ammonia 10 umol/L (9-33) 12/26/18 14:32 Total Creatine Kinase 577 U/L (55-170) H 12/21/18 17:06 CK-MB (Mass) 2.65 ng/mL (0.0-3.38) 12/21/18 15:15 Troponin I 0.2760 ng/mL (0.00-0.120) H* 12/21/18 15:15 NT-Pro-B Natriuret Pep 97156 pg/mL (0-900) H 12/21/18 12:23 Total Protein 5.5 g/dL (6.3-8.3) L 12/26/18 06:23 Albumin 3.2 g/dL (3.5-5.0) L 12/26/18 06:23 Globulin 2.3 gm/dL (2.2-3.9) 12/26/18 06:23 Albumin/Globulin Ratio 1.4 (1.0-2.1) 12/26/18 06:23 Vitamin B12 669 pg/mL (239-931) 12/21/18 17:06 Folate > 20.0 ng/mL 12/21/18 17:06 Procalcitonin 33.72 NG/ML (0.19-0.49) H 12/21/18 12:23 Free T4 0.97 ng/dL (0.78-2.19) 12/21/18 15:15 Free T3 pg/mL 2.22 pg/mL (2.77-5.27) L 12/21/18 15:15 TSH 3rd Generation 39.20 mIU/L (0.46-4.68) H 12/21/18 12:23 Arterial Blood Potassium 3.8 mmol/L (3.6-5.2) 12/26/18 11:15 Venous Blood Potassium 4.7 mmol/L (3.6-5.2) 12/22/18 14:50 Urine Color Yellow (YELLOW) 12/21/18 14:48 Urine Clarity Turbid (Clear) 12/21/18 14:48 Urine pH 6.0 (5.0-8.0) 12/21/18 14:48 Ur Specific [place] 1.014 (1.003-1.030) 12/21/18 14:48 Urine Protein 2+ mg/dL (NEGATIVE) H 12/21/18 14:48 Urine Glucose (UA) Normal mg/dL (Normal) 12/21/18 14:48 Urine Ketones Negative mg/dL (NEGATIVE) 12/21/18 14:48 Urine Blood 2+ (NEGATIVE) H 12/21/18 14:48 Urine Nitrate Negative (NEGATIVE) 12/21/18 14:48 Urine Bilirubin Negative (NEGATIVE) 12/21/18 14:48 Urine Urobilinogen Normal mg/dL (0.2-1.0) 12/21/18 14:48 Ur Leukocyte Esterase 3+ Bibi/uL (Negative) H 12/21/18 14:48 Urine WBC (Auto) 2657 /hpf (0-5) H 12/21/18 14:48 Urine RBC (Auto) 70 /hpf (0-3) H 12/21/18 14:48 Urine WBC Clumps (Auto) Many /hpf (NONE) H 12/21/18 14:48 Urine Bacteria Mod (<OCC) H 12/21/18 14:48 Urine Osmolality 316 mosm/kg (300-1000) 12/21/18 13:32 Ur Random Creatinine 71.6 mg/dL 12/21/18 13:32 U Random Total Protein 980.0 mg/dL (0.0-12.0) H 12/21/18 13:32 Ur Random Sodium 108 mmol/L 12/21/18 13:32 Urine Chloride 74 mmol/L (32-290) 12/21/18 14:51 Stool Occult Blood Negative (NEGATIVE) 12/21/18 20:05 Urine Opiates Screen Negative (NEGATIVE) 12/21/18 13:32 Urine Methadone Screen Negative (NEGATIVE) 12/21/18 13:32 Ur Barbiturates Screen Negative (NEGATIVE) 12/21/18 13:32 Ur Phencyclidine Scrn Negative (NEGATIVE) 12/21/18 13:32 Ur Amphetamines Screen Negative (NEGATIVE) 12/21/18 13:32 U Benzodiazepines Scrn Negative (NEGATIVE) 12/21/18 13:32 U Oth Cocaine Metabols Negative (NEGATIVE) 12/21/18 13:32 U Cannabinoids Screen Negative (NEGATIVE) 12/21/18 13:32 C. difficile Ag & Toxin Negative (NEGATIVE) 12/21/18 09:41 Hep Bs Antigen Negative (NEGATIVE) 12/22/18 14:28 Hep Bs Ag Neutralizatn Cancelled 12/22/18 14:28 Hep Bs Antibody Negative (NEGATIVE) 12/22/18 14:28 Hep B Core IgM Ab Negative (NEGATIVE) 12/22/18 14:28 Hepatitis C Antibody Negative (NEGATIVE) 12/22/18 14:28 Blood Type A POSITIVE 12/21/18 08:51 Antibody Screen Negative 12/21/18 08:51 Discharge Exam - Head Exam Head Exam: ATRAUMATIC, NORMAL INSPECTION, NORMOCEPHALIC Discharge Plan - Follow Up Plan Condition: GOOD Disposition: WITH WITHOUT AUTOPSY
--- NOTE | 2018-12-29 05:48 | DS ---
DISCHARGE DIAGNOSES: 1. Septicemia from urinary tract infection. 2. Acute kidney injury. 3. Cirrhosis of liver with liver failure. 4. Congestive heart failure with dilated cardiomyopathy. HOSPITAL COURSE: This is a 78-year-old male, chronically sick with cirrhosis of liver with ascites with history of prior paracentesis, congestive heart failure, atrial fibrillation, stage IV prostate cancer. The patient also has atrial fibrillation. The patient is compliant with his diet, medication, and followup. He was admitted to the floor because of altered mental status and there was a suspicion of painkiller overuse , and the patient was admitted to the floor; however, the patient turned out to be sick, septic with urinary tract infection with toxic metabolic encephalopathy. he had renal failure, and he was dialyzed twice with no improvement. The patient's condition continued to deteriorate and the family agreed with DNR/DNI, and the patient was not resuscitated. The patient's wanted to stop all the treatment and the patient . Gregory Thrasher MD
== END 2018-12-28 01:00 | DRG 917 ==
LOC: C.ER 02:10 → C.9E 04:40 → C.9I 06:29
PROVIDERS: ADMIT Internal Medicine; ATTEND Internal Medicine
PROC: 06HY33Z Insertion of Infusion Device into Lower Vein, Percutaneous Approach (ICD-10-PCS; 2018-12-21)
PROC: 5A09457 Assistance with Respiratory Ventilation, 24-96 Consecutive Hours, Continuous Positive Airway Pressure (ICD-10-PCS; principal; 2018-12-22)
PROC: 5A1D70Z Performance of Urinary Filtration, Intermittent, Less than 6 Hours Per Day (ICD-10-PCS; 2018-12-22)
PROC: 5A1D70Z Performance of Urinary Filtration, Intermittent, Less than 6 Hours Per Day (ICD-10-PCS; 2018-12-24)
PROC: 5A1D70Z Performance of Urinary Filtration, Intermittent, Less than 6 Hours Per Day (ICD-10-PCS; 2018-12-24)
DX: T40.2X1A Poisoning by other opioids, accidental (unintentional), initial encounter (principal); A41.9 Sepsis, unspecified organism; G92 Toxic encephalopathy; I50.23 Acute on chronic systolic (congestive) heart failure; R65.21 Severe sepsis with septic shock; J96.02 Acute respiratory failure with hypercapnia; E87.2 Acidosis; F11.23 Opioid dependence with withdrawal; C79.51 Secondary malignant neoplasm of bone; I13.0 Hypertensive heart and chronic kidney disease with heart failure and stage 1 through stage 4 chronic kidney disease, or unspecified chronic kidney disease; I42.0 Dilated cardiomyopathy; K76.6 Portal hypertension; N17.9 Acute kidney failure, unspecified; N39.0 Urinary tract infection, site not specified; R18.0 Malignant ascites; B96.20 Unspecified Escherichia coli [E. coli] as the cause of diseases classified elsewhere; E86.0 Dehydration; G89.3 Neoplasm related pain (acute) (chronic); I25.10 Atherosclerotic heart disease of native coronary artery without angina pectoris; I48.91 Unspecified atrial fibrillation; K29.70 Gastritis, unspecified, without bleeding; K42.9 Umbilical hernia without obstruction or gangrene; K70.30 Alcoholic cirrhosis of liver without ascites; E16.2 Hypoglycemia, unspecified; C61 Malignant neoplasm of prostate; D64.9 Anemia, unspecified; K72.90 Hepatic failure, unspecified without coma; N18.3 Chronic kidney disease, stage 3 (moderate); R13.10 Dysphagia, unspecified; Y92.009 Unspecified place in unspecified non-institutional (private) residence as the place of occurrence of the external cause; Z66 Do not resuscitate; Z51.5 Encounter for palliative care; Z87.891 Personal history of nicotine dependence